=== PATIENT | male | born 1960 | race Caucasian/White ===

== ENCOUNTER 2022-03-04 10:14 | Emergency (ER) | payer SELFPAY ==
[2022-03-04] VITALS (14 sets, daily range): BP systolic 116–130; BP diastolic 74–93; PULSE 102–126; RESP 17–31; O2SAT 92–94; BMI 32.1
--- NOTE | 2022-03-04 10:15 | XR_ITS ---
WS: [id number] Exam: XR chest 1V portable [id number] Date/Time of Exam: 03/04/2022 10:17 AM Reason For Exam: cough, congestion No priors. The lungs are fully expanded and clear. Heart size top limits normal. No pleural effusions. Plate and screw fixation of 3 old upper left rib fractures. Mediastinal contour appears normal. XR/XR chest 1V portable [id number] IMPRESSION: 1. No acute cardiopulmonary finding.
[2022-03-04] MEDS: ipratropium-albuterol 3 mL Neb INHALATION (11:12)
--- NOTE | 2022-03-04 11:26 | PC.NURSE ---
Patient IV attempted by 2 RN's. notified that we were unable to get IV access, we made attempts in the arm. Patient requested leg IV, notified Dr. Jordan.
--- NOTE | 2022-03-04 11:37 | ECG_ITS ---
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 Measurements Intervals [place] Rate: 136 P: CT: QRS: 80 QRSD: 91 T: -19 QT: 281 QTc: 423 Interpretive Statements ATRIAL FIBRILLATION WITH RAPID VENTRICULAR RESPONSE INCOMPLETE RIGHT BUNDLE BRANCH BLOCK [90+ ms QRS DURATION, TERMINAL R IN V1/V2, 40+ ms S IN I/aVL/V4/V5/V6] SEPTAL MYOCARDIAL INFARCTION , OF INDETERMINATE AGE [40+ ms Q WAVE IN V1/V2] Compared to ECG 12/19/2014 01:16:27 Incomplete right bundle-branch block now present Myocardial infarct finding now present Sinus tachycardia no longer present Intraventricular conduction delay no longer present Electronically Signed On 03-04-2022 15:21:16 CDT by Mariusz Martínez M.D. [id number]
--- NOTE | 2022-03-04 12:07 | ED_ITS ---
HPI - SOB/Dyspnea General: Chief Complaint: Shortness of Breath/Dyspnea Stated Complaint: cough/congestion Time Seen by Provider: 03/04/22 10:44 Source: patient Mode of arrival: ambulatory Limitations: no limitations History of Present Illness: HPI Narrative: 61-year-old male presents emergency room complaining of shortness of breath he states is getting worse for the last 2 months he states he has a history of COPD he has been taking breathing treatments 3-4 times a day with moderate improvement. He is also states he has had a productive cough. He recently was released from incarceration there he had been given steroids which she is did seem to help. He has some generalized just chest congestion but no chest pain. No radiation discomfort of the neck or arms. Patient states he has a history of atrial fibrillation he is on diltiazem metoprolol has been taking his medicines regularly is not on any anticoagulation. MD elicited complaint: shortness of breath and cough Pertinent past history: COPD Onset (ago): week(s) Context: recent illness Timing: constant Severity: moderate Exacerbating factors: nothing Relieving factors: nothing Known history of: COPD Associated symptoms: Reports cough and palpitations; Deny abdominal pain, chest congestion, chest pain, diaphoresis, dizziness, extremity pain, fever(s), hemoptysis, myalgias, nausea, orthopnea, paresthesias, polydipsia, polyuria, rash, sense of impending doom, syncope or vomiting Treatment prior to arrival: none Review of Systems Const: Denies: fever(s), chills or diaphoresis ENMT: Denies: throat pain, ear or mastoid pain, nasal discharge or nasal congestion Card: Reports: palpitations and irregular heart rhythm; Denies: chest pain, syncope or orthopnea Resp: Denies: hemoptysis or chest congestion GI: Denies: abdominal pain, nausea, vomiting, hematemesis, coffee ground emesis or dysphagia : Denies: flank pain, difficulty urinating, dysuria, urinary frequency or urinary urgency Musc: Denies: neck pain, back pain or extremity pain Skin/Breast: Denies: rash or pruritus Neuro: Denies: headache(s) or dizziness Psych: Reports: anxiety Endo: Denies: polyuria or polydipsia PFS ED PFSH: Medical History Atrial fibrillation COPD (chronic obstructive pulmonary disease) Hyperlipidemia Physical Exam Const: GENERAL APPEARANCE: cooperative and comfortable ORIENTATION/CONSCIOUSNESS: Yes awake, Yes oriented to person, Yes oriented to place and Yes oriented to time HENMT: COMMON NORMALS: normocephalic HEAD & SCALP: normocephalic Lymph: LYMPHATIC: no lymphadenopathy noted and no lymphedema noted Resp: AUSCULTATION: rales and rhonchi Cardio: RATE: tachycardic RHYTHM: abnormal rhythm irregularly irregular GI: COMMON NORMALS: Soft to palpation and No hepatosplenomegaly present AUSCULTATION: Yes normoactive bowel sounds PALPATION: Yes Soft to palpation, No Tenderness to palpation present (GI), No Guarding due to palpation present (GI) and Yes No hepatosplenomegaly present Extremity: COMMON NORMALS: normal to inspection, capillary refill normal, no clubbing, cyanosis or edema, no calf tenderness and no pedal edema Neuro: SENSORIUM/ORIENTATION: Yes oriented to person, Yes oriented to place and Yes oriented to time Skin: COMMON NORMALS: no rashes or lesions noted GENERAL SKIN EXAM: no rashes or lesions noted Course Vital Signs: Vital signs: Vital Signs Pulse Rate 102 H 03/04/22 15:30 Respiratory Rate 30 H 03/04/22 15:30 Blood Pressure 127/86 03/04/22 15:30 Pulse Oximetry 92 03/04/22 15:30 MDM - SOB/Dyspnea Medical Decision Making Patient has significant exacerbation COPD and likely should be placed on at minimum observation. He is declining any wants to leave AMA could not be convinced otherwise discharged home with exacerbation of COPD encouraged to return if he has any further problems or wishes to reconsider evaluation and treatments. Lab Data Labs/Radiology: Radiology Impressions Chest X-Ray 03/04/22 10:15 IMPRESSION: 1. No acute cardiopulmonary finding. Discharge Plan Discharge Patient Disposition: Left Against Medical Advice Clinical Impression: Acute exacerbation of chronic obstructive airways disease Condition: Stable Prescriptions: No Action furosemide [Lasix] 40 mg Tablet 40 mg PO QAM 0RF atorvastatin 40 mg Tablet 40 mg PO BEDTIME 0RF diltiazem HCl 180 mg Capsule,Extended Release 24 Hr 180 mg PO QAM 0RF cetirizine [Zyrtec] 10 mg Tablet 10 mg PO QAM 0RF aspirin 325 mg Tablet 325 mg PO QAM 0RF metoprolol tartrate 50 mg Tablet 50 mg PO BID 0RF DuoNeb 0.5 mg-3 mg(2.5 mg base)/3 mL Solution For Nebulization 3 ml INHALATION QID 0RF albuterol sulfate 90 mcg/actuation Hfa Aerosol Inhaler 2 puff INHALATION QID PRN (Reason: Shortness Of Breath) 0RF Alvesco 80 mcg/actuation Hfa Aerosol Inhaler 2 puff INHALATION BID 0RF Zithromax Z-Naeem 250 mg tablet See Rx Instructions .ROUTE .COMPLEX Qty: 6 0RF Rx Instructions: For 250 mg dose pack: take 500 mg today (day 1), then 250 mg for 4 days (days 2-5) Coding Level of Care Code ED Customs Opener Verifier Packer for Chg Fwd Exam Comprehensive
--- NOTE | 2022-03-04 12:39 | PC.NURSE ---
Patient IV with ultrasound unsuccessful, Dr. Jordan notified.
--- NOTE | 2022-03-04 13:37 | ECG_ITS ---
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 Measurements Intervals [place] Rate: 114 P: [place]: QRS: 66 QRSD: 105 T: -15 QT: 326 QTc: 450 Interpretive Statements ATRIAL FIBRILLATION WITH RAPID VENTRICULAR RESPONSE INCOMPLETE RIGHT BUNDLE BRANCH BLOCK [90+ ms QRS DURATION, TERMINAL R IN V1/V2, 40+ ms S IN I/aVL/V4/V5/V6] SEPTAL MYOCARDIAL INFARCTION , PROBABLY OLD [40+ ms Q WAVE IN V1/V2] Compared to ECG 03/04/2022 12:01:13 No significant changes Electronically Signed On 03-04-2022 15:25:35 CDT by Mariusz Martínez M.D. [id number]
--- NOTE | 2022-03-04 13:41 | PC.NURSE ---
EKG done and shown to ER doctor
[2022-03-04] MEDS: dilTIAZem 30 mg Tablet PO (14:00)
--- NOTE | 2022-03-04 14:08 | PC.NURSE ---
Discussed with Dr. Jordan, VAT SKIMMER coming down to er to attempt to start a line.
--- NOTE | 2022-03-04 14:56 | PC.NURSE ---
Patient refusing anymore IV attempts.
--- NOTE | 2022-03-04 15:20 | PC.NURSE ---
Per lab staff, patient is now refusing lab draw.
== END 2022-03-04 15:45 | disposition left against medical advice (07) ==
PROVIDERS: Emergency Provider Family Medicine
DX: J44.1 Chronic obstructive pulmonary disease with (acute) exacerbation (principal); Z53.29 Procedure and treatment not carried out because of patient's decision for other reasons; I48.91 Unspecified atrial fibrillation; Z79.82 Long term (current) use of aspirin
CPT/HCPCS: 71045; 93005; 94640; 99284

== ENCOUNTER 2022-03-06 11:48 | Emergency (ER) | payer SELFPAY ==
[2022-03-06 12:04] VITALS: BP 105/77; PULSE 110; RESP 18; TEMP 36.4; O2SAT 94; BMI 32.1
--- NOTE | 2022-03-06 12:34 | ECG_ITS ---
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 Measurements Intervals [place] Rate: 92 P: MS: QRS: 75 QRSD: 102 T: -15 QT: 335 QTc: 415 Interpretive Statements ATRIAL FIBRILLATION INCOMPLETE RIGHT BUNDLE BRANCH BLOCK [90+ ms QRS DURATION, TERMINAL R IN V1/V2, 40+ ms S IN I/aVL/V4/V5/V6] SEPTAL MYOCARDIAL INFARCTION , OF INDETERMINATE AGE [40+ ms Q WAVE IN V1/V2] Compared to ECG 03/04/2022 13:27:26 No significant changes Electronically Signed On 03-06-2022 19:03:39 CDT by Tino Lowery M.D. [id number]
--- NOTE | 2022-03-06 12:34 | XRR_ITS ---
PROCEDURE INFORMATION: Exam: XR Chest Exam date and time: 03/06/2022 12:55 PM Age: 61 years old Clinical indication: Shortness of breath; TECHNIQUE: Imaging protocol: XR of the chest. Views: 1 view. COMPARISON: CR XR chest 1V portable [id number] 03/04/2022 10:22 AM FINDINGS: Lungs: There is scarring and/or atelectasis at the left lung base. Pleural spaces: Unremarkable. No pleural effusion. No pneumothorax. Heart/Mediastinum: Unremarkable. No cardiomegaly. Bones/joints: Postoperative changes left upper ribs, similar to the prior study. XR/XR chest 1V portable [id number] IMPRESSION: No acute findings.Non acute findings as described above.
[2022-03-06 12:54] LABS: Basophils # 0.1 10^3/uL (0.0-0.1); Basophils % 0.5 %; Eosinophils # 0.1 10^3/uL (0.0-0.8); Eosinophils % 1.3 %; Hematocrit 45.8 % (42.0-52.0); Hemoglobin 15.5 g/dL (11.7-16.6); Lymphocytes # 0.9 10^3/uL (0.8-4.8); Lymphocytes % 9.1 %; Mean Corpuscular HGB Conc 33.8 g/dL (30.0-36.0); Mean Corpuscular Hemoglobin 29.8 pg (28.0-34.0); Mean Corpuscular Volume 88.1 fl (80-94); Mean Platelet Volume 9.8 fL (7.4-10.4); Neutrophils # 7.48 10^3/uL (1.8-7.7); Neutrophils % 78.8 %; Nucleated Red Blood Cells % 0 %; Platelet Count 355 10^3/cmm (130-400); Red Cell Distribution Width 12.8 % (12.1-15.1); White Blood Count 9.5 10^3/uL (4.0-10.0)
--- NOTE | 2022-03-06 13:00 | PC.PHAR ---
pt states he takes care of his own medications-pt states he takes the medications entered-ext med history doesnt pull up any medications-pt was here on 03/04/22 MR lara uribe entered meds at that time-pt states he just got out of skilled nursing and takes the medications entered-pt states he use to be on blood thinners but hasnt been taking for a while-pt states he was on a titrating dose of prednisone but states he finished it 2 weeks ago-
[2022-03-06] MEDS: sodium chloride 0.9% 500 ML 999 ML IV (13:12)
[2022-03-06 13:19] LABS: Alanine Aminotransferase 25 U/L (0-41); Albumin Level 3.8 g/dL (3.5-5.2); Alkaline Phosphatase 77 IU/L (40-130); Anion Gap 16.6 (5-19); Aspartate Amino Transferase 26 U/L (0-40); Blood Urea Nitrogen 16 mg/dL (8-23); Calcium 9.8 mg/dL (8.5-10.5); Carbon Dioxide 28 mmol/L (22-29); Chloride 99 mmol/L (98-107); Creatinine Clr Calc Pharmacy 92.9458; Globulin 4.2 g/dL (1.3-4.6); Glomerular Filtration Rate 75.5 mL/min (90-130); Glucose 103 mg/dL (65-115); NT Pro B Type Natriuretic Pept 748 pg/mL (0-125); Osmolality Calculated 291 mOsm/kg (285-295); Potassium 3.6 mmol/L (3.5-5.1); Sodium 140 mmol/L (136-145); Total Bilirubin 0.7 mg/dL (0.15-1.2)
--- NOTE | 2022-03-06 13:33 | ED_ITS ---
HPI - SOB/Dyspnea General: Chief Complaint: Shortness of Breath/Dyspnea Stated Complaint: SOB x 2 weeks; progressively worse Time Seen by Provider: 03/06/22 12:14 History of Present Illness: HPI Narrative: Patient comes in with shortness of breath and productive cough for the past 2 weeks. Denies fever, vomiting, diarrhea. Also endorses palpitations and is concerned that he may be in A. fib. Associated symptoms: Reports palpitations; Deny abdominal pain, chest pain, fever(s), nausea, polyuria or vomiting Review of Systems Const: Reports: body aches; Denies: fever(s) Eyes: Denies: change in vision or blurry vision ENMT: Denies: throat pain or odynophagia Card: Reports: palpitations; Denies: chest pain Resp: Reports: dyspnea and productive cough GI: Denies: abdominal pain, nausea or vomiting : Denies: flank pain or dysuria Musc: Denies: neck pain or back pain Skin/Breast: Denies: rash or pruritus Neuro: Denies: headache(s) or numbness in extremities Psych: Denies: anxiety or change in appetite Endo: Denies: polyuria or excessive sweating PFSH ED PFSH: Medical History Atrial fibrillation COPD (chronic obstructive pulmonary disease) Hyperlipidemia Physical Exam Const: COMMON NORMALS: no acute distress, patient oriented x3, healthy eliana earing and alert HENMT: COMMON NORMALS: normocephalic and atraumatic HEAD & SCALP: normocephalic and atraumatic Eye: COMMON NORMALS: Equal, round and reactive pupils present and EOMs intact bilaterally PUPIL: Yes Equal, round and reactive pupils present Neck/C-Spine: COMMON NORMALS: full ROM and supple Resp: OTHER: Mild accessory muscle use, tachypnea, Cardio: COMMON NORMALS: regular rhythm RHYTHM: regular rhythm OTHER: Tachycardia with an irregularly irregular rhythm GI: COMMON NORMALS: Normal to inspection, nondistended, normoactive bowel sounds present, Soft to palpation and non-tender PALPATION: Yes Soft to palpation Back/Pelvis: COMMON NORMALS: thoracic and lumbar spine normal to inspection and no thoracic nor lumbar tenderness Extremity: COMMON NORMALS: normal to inspection and full ROM Neuro: COMMON NORMALS: patient oriented x3 SENSORIUM/ORIENTATION: Yes alert Psych: COMMON NORMALS: mental status grossly normal and cooperative Skin: COMMON NORMALS: no rashes or lesions noted and no wounds GENERAL SKIN EXAM: no rashes or lesions noted Course Vital Signs: Vital signs: Vital Signs Temperature 97.5 F L 03/06/22 12:04 Pulse Rate 103 H 03/06/22 15:11 Respiratory Rate 29 H 03/06/22 15:11 Blood Pressure 103/69 03/06/22 15:11 Pulse Oximetry 91 03/06/22 15:11 MDM - SOB/Dyspnea Medical Decision Making Patient comes in with shortness of breath and productive cough for the past 2 weeks. Denies fever, vomiting, diarrhea. Also endorses palpitations and is concerned that he may be in A. fib. Will check labs, x-ray, give IV fluids, and reassess. On reassessment I talked to the patient about the test results. We will continue steroids, start antibiotics, and discharged with precautions to return for worsening or changing symptoms. Lab Data : 03/06/22 12:45 03/06/22 12:45 Labs/Radiology: Radiology Impressions Chest X-Ray 03/06/22 12:34 IMPRESSION: No acute findings.Non acute findings as described above. Laboratory Results WBC 9.5 10^3/uL (4.0-10.0) 03/06/22 12:45 RBC 5.20 10^6/uL (4.1-5.3) 03/06/22 12:45 Hgb 15.5 g/dL (11.7-16.6) 03/06/22 12:45 Hct 45.8 % (42.0-52.0) 03/06/22 12:45 MCV 88.1 fl (80-94) 03/06/22 12:45 MCH 29.8 pg (28.0-34.0) 03/06/22 12:45 MCHC 33.8 g/dL (30.0-36.0) 03/06/22 12:45 RDW 12.8 % (12.1-15.1) 03/06/22 12:45 Plt Count 355 10^3/cmm (130-400) 03/06/22 12:45 MPV 9.8 fL (7.4-10.4) 03/06/22 12:45 Neut % (Auto) 78.8 % 03/06/22 12:45 Lymph % (Auto) 9.1 % 03/06/22 12:45 [place] % (Auto) 10.0 % 03/06/22 12:45 Eos % (Auto) 1.3 % 03/06/22 12:45 Baso % (Auto) 0.5 % 03/06/22 12:45 Neut # (Auto) 7.48 10^3/uL (1.8-7.7) 03/06/22 12:45 Lymph # (Auto) 0.9 10^3/uL (0.8-4.8) 03/06/22 12:45 [place] # (Auto) 1.0 10^3/uL (0.2-0.9) H 03/06/22 12:45 Eos # (Auto) 0.1 10^3/uL (0.0-0.8) 03/06/22 12:45 Baso # (Auto) 0.1 10^3/uL (0.0-0.1) 03/06/22 12:45 Nucleated RBC % (auto) 0 % 03/06/22 12:45 Nucleated RBCs # 0.0 /100WBC 03/06/22 12:45 Sodium 140 mmol/L (136-145) 03/06/22 12:45 Potassium 3.6 mmol/L (3.5-5.1) 03/06/22 12:45 Chloride 99 mmol/L (98-107) 03/06/22 12:45 Carbon Dioxide 28 mmol/L (22-29) 03/06/22 12:45 Anion Gap 16.6 (5-19) 03/06/22 12:45 BUN 16 mg/dL (8-23) 03/06/22 12:45 Creatinine 1.0 mg/dL (0.7-1.2) 03/06/22 12:45 GFR Calculation 75.5 mL/min (90-130) L 03/06/22 12:45 Glucose 103 mg/dL (65-115) 03/06/22 12:45 Calculated Osmolality 291 mOsm/kg (285-295) 03/06/22 12:45 Calcium 9.8 mg/dL (8.5-10.5) 03/06/22 12:45 Total Bilirubin 0.7 mg/dL (0.15-1.2) 03/06/22 12:45 AST 26 U/L (0-40) 03/06/22 12:45 ALT 25 U/L (0-41) 03/06/22 12:45 Alkaline Phosphatase 77 IU/L (40-130) 03/06/22 12:45 NT-Pro-B Natriuret Pep 748 pg/mL (0-125) H 03/06/22 12:45 Total Protein 8.0 g/dL (6.6-8.7) 03/06/22 12:45 Albumin 3.8 g/dL (3.5-5.2) 03/06/22 12:45 Globulin 4.2 g/dL (1.3-4.6) 03/06/22 12:45 Discharge Plan Discharge Patient Disposition: Home Clinical Impression: COPD (chronic obstructive pulmonary disease) Condition: Stable Prescriptions: New Zithromax Z-Naeem 250 mg tablet See Rx Instructions .ROUTE .COMPLEX Qty: 6 0RF Rx Instructions: For 250 mg dose pack: take 500 mg today (day 1), then 250 mg for 4 days (days 2-5) prednisone 20 mg tablet 60 mg PO DAILY 4 Days Qty: 12 0RF No Action furosemide [Lasix] 40 mg Tablet 40 mg PO QAM 0RF atorvastatin 40 mg Tablet 40 mg PO BEDTIME 0RF diltiazem HCl 180 mg Capsule,Extended Release 24 Hr 180 mg PO QAM 0RF cetirizine [Zyrtec] 10 mg Tablet 10 mg PO QAM 0RF aspirin 325 mg Tablet 325 mg PO QAM 0RF metoprolol tartrate 50 mg Tablet 50 mg PO BID 0RF DuoNeb 0.5 mg-3 mg(2.5 mg base)/3 mL Solution For Nebulization 3 ml INHALATION QID 0RF albuterol sulfate 90 mcg/actuation Hfa Aerosol Inhaler 2 puff INHALATION QID PRN (Reason: Shortness Of Breath) 0RF Alvesco 80 mcg/actuation Hfa Aerosol Inhaler 2 puff INHALATION BID 0RF Discharge Orders: Discharge ED (Routine); Ordered 03/06/22 Ordered By: Brian Perez Coding Level of Care Code ED Cabinet Finisher for Chg Fwd Exam Comprehensive
[2022-03-06 13:37] VITALS: PULSE 103; RESP 22; O2SAT 94
[2022-03-06] MEDS: levalbuterol 1.25 mg/3 mL Neb INHALATION (13:37)
[2022-03-06 13:47] VITALS: PULSE 105; RESP 22; O2SAT 94
[2022-03-06] MEDS: dilTIAZem 5 mg/mL SDV 5 mL IVP (15:04)
[2022-03-06 15:11] VITALS: BP 103/69; PULSE 103; RESP 29; O2SAT 91
== END 2022-03-06 16:36 | disposition home or self-care (01) ==
PROVIDERS: Emergency Provider Emergency Medicine
DX: J44.9 Chronic obstructive pulmonary disease, unspecified (principal); I48.91 Unspecified atrial fibrillation; Z79.82 Long term (current) use of aspirin
CPT/HCPCS: 71045; 80053; 83880; 85025; 93005; 94640; 96361; 96374; 96375; 99285; J2930; J3490; J7040; J7614

== ENCOUNTER 2022-06-08 09:25 | Outpatient (CLI) | payer OTHER, SELFPAY ==
--- NOTE | 2022-06-08 13:24 | PFTS_ITS ---
Date of Study:06/08/22 Date of Dictation: MECHANICS: Forced vital capacity (FVC) is reduced. Forced expiratory volume in one second (FEV1) is reduced. FEV1/FVC is reduced. FLOW VOLUME LOOP: Reduced flow at all lung volumes with significant scooping. LUNG VOLUMES: Not measured DIFFUSING CAPACITY FOR CARBON MONOXIDE: Moderately reduced. INTERPRETATION: The postbronchodilator spirometry is consistent with severe airflow obstruction. There is a significant postbronchodilator response. A component of restrictive lung disease cannot be ruled out in the absence of lung volume measurement. Lung volumes are not measured. Gas exchange (DLCO) is moderately reduced. MTDD
== END 2022-06-08 09:26 | disposition home or self-care (01) ==
PROVIDERS: Visit Provider Family Medicine
DX: J44.9 Chronic obstructive pulmonary disease, unspecified (principal)
CPT/HCPCS: 94060; 94729; J7611

== ENCOUNTER 2022-10-02 12:30 | Observation (INO) | payer MEDICAID, SELFPAY ==
[2022-10-02] VITALS (11 sets, daily range): BP systolic 92–124; BP diastolic 48–91; PULSE 85–130; RESP 16–26; TEMP 36–36.6; O2SAT 90–95; BMI 32.1
--- NOTE | 2022-10-02 12:39 | XRR_ITS ---
PROCEDURE INFORMATION: Exam: XR Chest Exam date and time: 10/02/2022 12:56 PM Age: 61 years old Clinical indication: Shortness of breath; Prior surgery; Additional info: SOB TECHNIQUE: Imaging protocol: Radiologic exam of the chest. Views: 1 view. COMPARISON: CR XR chest 1V portable [id number] 03/06/2022 12:55 PM FINDINGS: Lungs: Unremarkable. No consolidation. Pleural spaces: Unremarkable. No pleural effusion. No pneumothorax. Heart/Mediastinum: Unremarkable. No cardiomegaly. Bones/joints: Metallic orthopedic hardware is seen in the left 3rd 4th and 5th rib consistent with ORIF of old fractures. These findings were present on prior examination and appears similar. No additional bony abnormalities are seen. XR/XR chest 1V portable [id number] IMPRESSION: 1. Multiple metallic plate and screws are seen in the left ribs stable since prior . 2. Otherwise negative chest examination
--- NOTE | 2022-10-02 12:40 | ECG_ITS ---
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 Measurements Intervals [place] Rate: 132 P: 0 MT: 0 QRS: 83 QRSD: 91 T: 48 QT: 268 QTc: 398 Interpretive Statements ATRIAL FIBRILLATION WITH RAPID VENTRICULAR RESPONSE INCOMPLETE RIGHT BUNDLE BRANCH BLOCK [90+ ms QRS DURATION, TERMINAL R IN V1/V2, 40+ ms S IN I/aVL/V4/V5/V6] ANTEROSEPTAL MYOCARDIAL INFARCTION , OF INDETERMINATE AGE [40+ ms Q WAVE IN V1-V4] Compared to ECG 03/06/2022 12:41:24 No significant changes Electronically Signed On 10-03-2022 19:51:46 PLASTICS FABRICATOR by Tino Lowery M.D. [id number]
--- NOTE | 2022-10-02 12:58 | ED_ITS ---
HPI - SOB/Dyspnea General: Chief Complaint: Shortness of Breath/Dyspnea Stated Complaint: SOB Time Seen by Provider: 10/02/22 12:48 Source: patient Mode of arrival: ambulatory Limitations: no limitations History of Present Illness: HPI Narrative: 61-year-old male who has a history of COPD along with A. fib he is noncompliant on his medicines states he has not taken them in over 2 months. States that over the last week he has been having increasing shortness of breath along with a nonproductive cough he is in A. fib with RVR here in respiratory distress with audible wheezing he is able speak in 3-4 word sentences denies any vomiting or diarrhea denies any chest pain. Associated symptoms: Deny abdominal pain, chest pain, fever(s), nausea or vomiting Review of Systems Const: Denies: fever(s), chills, body aches or change in appetite Eyes: Denies: blurry vision or eye discomfort ENMT: Denies: throat pain or dental pain Card: Denies: chest pain Resp: Reports: dyspnea and non-productive cough GI: Denies: abdominal pain, nausea, vomiting or diarrhea : Denies: dysuria Musc: Denies: neck pain or back pain Skin/Breast: Denies: rash Neuro: Denies: headache(s) Psych: Denies: depression Chay/Lymph: Denies: easy bruising All/Imm: Denies: urticaria PFSH ED 2 PFSH: Medical History Atrial fibrillation COPD (chronic obstructive pulmonary disease) Hyperlipidemia Physical Exam Const: COMMON NORMALS: patient oriented x3 GENERAL APPEARANCE: in distress and ill appearing HENMT: COMMON NORMALS: normocephalic and atraumatic HEAD & SCALP: normo cephalic and atraumatic Eye: COMMON NORMALS: Equal, round and reactive pupils present and EOMs intact bilaterally PUPIL: Yes Equal, round and reactive pupils present Neck/C-Spine: COMMON NORMALS: full ROM and supple Chest: COMMONS NORMALS: normal inspection of the chest and normal palpation of entire chest wall Resp: EFFORT & INSPECTION: Yes tachypneic and Yes labored AUSCULTATION: rales and wheezes Cardio: COMMON NORMALS: No murmurs present (Cardio) RATE: tachycardic RHYTHM: abnormal rhythm irregularly irregular GI: COMMON NORMALS: Normal to inspection, nondistended, normoactive bowel sounds present, Soft to palpation, non-tender and no masses PALPATION: Yes Soft to palpation Extremity: COMMON NORMALS: normal to inspection and full ROM Neuro: COMMON NORMALS: patient oriented x3, moves all extremities and no focal motor deficits Psych: COMMON NORMALS: mental status grossly normal, Normal thought process present and cooperative THOUGHT PROCESS: Normal thought process present Skin: COMMON NORMALS: no rashes or lesions noted and no wounds GENERAL SKIN EXAM: no rashes or lesions noted Course Vital Signs: Vital signs: Vital Signs Temperature 96.8 F L 10/02/22 12:35 Pulse Rate 111 H 10/02/22 15:03 Respiratory Rate 18 10/02/22 15:03 Blood Pressure 104/71 10/02/22 15:03 Pulse Oximetry 92 10/02/22 13:09 Oxygen Delivery Me thod 10/02/22 13:09 MDM - SOB/Dyspnea Medical Decision Making Patient presents here with cough wheezing does have a history of COPD along with A. fib he was in A. fib with RVR here his heart rate has improved here patient is given a breathing treatment he still requiring oxygen here. I spoke to the hospitalist will admit at this time. Lab Data 10/02/22 14:11 10/02/22 14:11 Labs/Radiology: Radiology Impressions Chest X-Ray 10/02/22 12:39 IMPRESSION: 1. Multiple metallic plate and screws are seen in the left ribs stable since prior . 2. Otherwise negative chest examination Laboratory Results WBC 13.4 10^3/uL (4.0-10.0) H 10/02/22 14:11 RBC 5.80 10^6/uL (4.1-5.3) H 10/02/22 14:11 Hgb 16.5 g/dL (11.7-16.6) 10/02/22 14:11 Hct 50.7 % (42.0-52.0) 10/02/22 14:11 MCV 87.4 fl (80-94) 10/02/22 14:11 MCH 28.4 pg (28.0-34.0) 10/02/22 14:11 MCHC 32.5 g/dL (30.0-36.0) 10/02/22 14:11 RDW 13.2 % (12.1-15.1) 10/02/22 14:11 Plt Count 637 10^3/cmm (130-400) H 10/02/22 14:11 MPV 8.9 fL (7.4-10.4) 10/02/22 14:11 Neut % (Auto) 80.6 % 10/02/22 14:11 Lymph % (Auto) 12.4 % 10/02/22 14:11 Mckenzie % (Auto) 5.7 % 10/02/22 14:11 Eos % (Auto) 0.2 % 10/02/22 14:11 Baso % (Auto) 0.4 % 10/02/22 14:11 Neut # (Auto) 10.80 10^3/uL (1.8-7.7) H 10/02/22 14:11 Lymph # (Auto) 1.7 10^3/uL (0.8-4.8) 10/02/22 14:11 Mckenzie # (Auto) 0.8 10^3/uL (0.2-0.9) 10/02/22 14:11 Eos # (Auto) 0.0 10^3/uL (0.0-0.8) 10/02/22 14:11 Baso # (Auto) 0.1 10^3/uL (0.0-0.1) 10/02/22 14:11 Nucleated RBC % (auto) 0 % 10/02/22 14:11 Nucleated RBCs # 0.0 /100WBC 10/02/22 14:11 Specimen Type Arterial 10/02/22 13:09 Sample Site Radial, left 10/02/22 13:09 ABG pH 7.45 (7.35-7.45) 10/02/22 13:09 ABG pCO2 32.1 mmHg (35-45) L 10/02/22 13:09 ABG pO2 68.7 mmHg (80.0-100.0) L 10/02/22 13:09 ABG HCO3 22.2 mmol/L (22-26) 10/02/22 13:09 ABG Base Excess -0.8 mmol/L (-2.0-2.0) 10/02/22 13:09 Jacob Test Pos 10/02/22 13:09 Hematocrit 50.0 % (42-52) 10/02/22 13:09 O2 Delivery Device Room air 10/02/22 13:09 FiO2 21.0 % 10/02/22 13:09 Guest Service Supervisor ID Cak 10/02/22 13:09 Sodium 132 mmol/L (136-145) L 10/02/22 14:11 Potassium 4.8 mmol/L (3.5-5.1) 10/02/22 14:11 Chloride 96 mmol/L (98-107) L 10/02/22 14:11 Carbon Dioxide 25 mmol/L (22-29) 10/02/22 14:11 Anion Gap 15.8 (5-19) 10/02/22 14:11 BUN 16 mg/dL (8-23) 10/02/22 14:11 Creatinine 0.9 mg/dL (0.7-1.2) 10/02/22 14:11 GFR Calculation 85.2 mL/min (90-130) L 10/02/22 14:11 Glucose 96 mg/dL (65-115) 10/02/22 14:11 Calculated Osmolality 275 mOsm/kg (285-295) L 10/02/22 14:11 Calcium 9.5 mg/dL (8.5-10.5) 10/02/22 14:11 Total Bilirubin 0.5 mg/dL (0.15-1.2) 10/02/22 14:11 AST 19 U/L (0-40) 10/02/22 14:11 ALT 18 U/L (0-41) 10/02/22 14:11 Alkaline Phosphatase 70 U/L (40-130) 10/02/22 14:11 NT-Pro-B Natriuret Pep 337 pg/mL (0-125) H 10/02/22 14:11 Total Protein 8.1 g/dL (6.6-8.7) 10/02/22 14:11 Albumin 3.4 g/dL (3.5-5.2) L 10/02/22 14:11 Globulin 4.7 g/dL (1.3-4.6) H 10/02/22 14:11 Influenza Type A Ag negative (Negative) 10/02/22 14:01 Influenza Type B Ag negative (Negative) 10/02/22 14:01 SARS-CoV-2 Ag (Rapid) negative (Negative) 10/02/22 14:01 Critical Care Time Critical Care Time: Critical Care Time: Yes Total Critical Care Time: 45 Attestation: The high probability of a clinically significant, sudden or life threatening deterioration of the patient's cv, resp system(s) required my full and direct attention, intervention and personal management. The critical care time is as shown. This time is in addition to time spent performing any reported procedures but includes the following: [x] Data and vital sign review and interpretation [x] Patient assessment, examination and intervention [x] Documentation [x] Medication orders and management Discharge Plan Discharge Patient Disposition: Admitted As Inpatient Clinical Impression: Acute exacerbation of chronic obstructive airways disease, Atrial fibrillation with RVR, Acute and chronic respiratory failure with hypoxia Condition: Stable Prescriptions: No Action furosemide [Lasix] 40 mg Tablet 40 mg PO QAM atorvastatin 40 mg Tablet 40 mg PO BEDTIME diltiazem HCl 180 mg Capsule,Extended Release 24 Hr 180 mg PO QAM cetirizine [Zyrtec] 10 mg Tablet 10 mg PO QAM aspirin 325 mg Tablet 325 mg PO QAM metoprolol tartrate 50 mg Tablet 50 mg PO BID DuoNeb 0.5 mg-3 mg(2.5 mg base)/3 mL Solution For Nebulization 3 ml INHALATION QID albuterol sulfate 90 mcg/actuation Hfa Aerosol Inhaler 2 puff INHALATION QID PRN (Reason: Shortness Of Breath) Alvesco 80 mcg/actuation Hfa Aerosol Inhaler 2 puff INHALATION BID Zithromax Z-Naeem 250 mg tablet See Rx Instructions .ROUTE .COMPLEX Qty: 6 0RF Rx Instructions: For 250 mg dose pack: take 500 mg today (day 1), then 250 mg for 4 days (days 2-5) Coding Level of Care Code ED Recreation Programmer for [facility] Fwd Exam Comprehensive
[2022-10-02] MEDS: albuterol 2.5 mg/3 mL Neb INHALATION (13:09)
[2022-10-02 13:20] LABS: ABG PCO2 32.1 mmHg (35-45); ABG PH Result 7.45 (7.35-7.45); Base Excess ABG -0.8 mmol/L (-2.0-2.0); Blood Gas Allen Test Pos; Blood Gas Operator Identificat CAK; Blood Gas Sample Site Radial, left; Blood Gas Sample Type Arterial; HCO3 ABG 22.2 mmol/L (22-26); Oxygen Device ROOM AIR; PO2 ABG 68.7 mmHg (80.0-100.0)
[2022-10-02 14:17] LABS: Basophils # 0.1 10^3/uL (0.0-0.1); Basophils % 0.4 %; Eosinophils % 0.2 %; Hematocrit 50.7 % (42.0-52.0); Hemoglobin 16.5 g/dL (11.7-16.6); Lymphocytes # 1.7 10^3/uL (0.8-4.8); Lymphocytes % 12.4 %; Mean Corpuscular HGB Conc 32.5 g/dL (30.0-36.0); Mean Corpuscular Hemoglobin 28.4 pg (28.0-34.0); Mean Corpuscular Volume 87.4 fl (80-94); Mean Platelet Volume 8.9 fL (7.4-10.4); Monocytes # 0.8 10^3/uL (0.2-0.9); Monocytes % 5.7 %; Neutrophils % 80.6 %; Nucleated Red Blood Cells % 0 %; Platelet Count 637 10^3/cmm (130-400); Red Cell Distribution Width 13.2 % (12.1-15.1); White Blood Count 13.4 10^3/uL (4.0-10.0)
[2022-10-02] MEDS: sodium chloride 0.9% 1,000 ML 999 ML IV (14:19)
[2022-10-02 14:27] LABS: Influenza A by IFA negative (Negative); Influenza B by IFA negative (Negative); SARS Covid-2 Antigen negative (Negative)
[2022-10-02 14:54] LABS: Alanine Aminotransferase 18 U/L (0-41); Albumin Level 3.4 g/dL (3.5-5.2); Alkaline Phosphatase 70 U/L (40-130); Blood Urea Nitrogen 16 mg/dL (8-23); Calcium 9.5 mg/dL (8.5-10.5); Carbon Dioxide 25 mmol/L (22-29); Chloride 96 mmol/L (98-107); Globulin 4.7 g/dL (1.3-4.6); Glomerular Filtration Rate 85.2 mL/min (90-130); Glucose 96 mg/dL (65-115); NT Pro B Type Natriuretic Pept 337 pg/mL (0-125); Osmolality Calculated 275 mOsm/kg (285-295); Sodium 132 mmol/L (136-145); Total Bilirubin 0.5 mg/dL (0.15-1.2); Total Protein 8.1 g/dL (6.6-8.7)
[2022-10-02 15:06] LABS: Anion Gap 15.8 (5-19); Aspartate Amino Transferase 19 U/L (0-40); Potassium 4.8 mmol/L (3.5-5.1)
--- NOTE | 2022-10-02 16:15 | P.HP_ITS ---
Providers/Chief Complaint Chief Complaint: SOB History of Present Illness Gareth Pickering is a 61 year old male with history of A. fib, COPD, not oxygen dependent, noncompliant, has not follow-up with PCP presented with worsening of shortness of breath. Patient is stating that he has been feeling sick for last 2 weeks, he has not noticed fever but his shortness of breath gotten worse to the point he could not breathe on room air he was hypoxic hence into the ER for further evaluation. He was diagnosed with A. fib RVR and COPD exacerbation. Audible wheezing present at the time of my evaluation. Patient is stating that he started bleeding when [facility] because they could not afford his Eliquis, he is still smoking around a pack a day. In the ER received steroids, breathing regimen, IV fluids along Cardizem 10 mg IV push Review of Systems Const: Reports: chills Eyes: Denies: change in vision ENMT: Denies: throat pain Card: Reports: palpitations, irregular heart rhythm and dyspnea on exertion; Denies: chest pain Resp: Reports: dyspnea GI: Denies: abdominal pain : Denies: urinary dribbling Musc: Denies: neck pain Skin/Breast: Denies: changing lesions Neuro: Denies: headache(s) Psych: Reports: anxiety Endo: Denies: polyuria Chay/Lymph: Denies: easy bruising All/Imm: Denies: urticaria Medications/Allergies Home Medications Medication Instructions Recorded Confirmed Last Taken Type aspirin 325 mg tablet 325 mg PO QAM 03/04/22 10/03/22 1 Month Ago History ~09/02/22 atorvastatin 40 mg tablet 40 mg PO BEDTIME 03/04/22 10/03/22 1 Month Ago History ~09/02/22 cetirizine 10 mg tablet (Zyrtec) 10 mg PO QAM 03/04/22 10/03/22 1 Month Ago History ~09/02/22 diltiazem HCl 180 mg capsule,24 180 mg PO QAM 03/04/22 10/03/22 1 Month Ago History hr,extended release ~09/02/22 furosemide 40 mg tablet (Lasix) 40 mg PO QAM 03/04/22 10/03/22 1 Month Ago History ~09/02/22 metoprolol tartrate 50 mg tablet 50 mg PO BID 03/04/22 10/03/22 1 Month Ago History ~09/02/22 see ALL pharmacy com albuterol sulfate 90 mcg/actuation 2 puff inhalation QID PRN 03/06/22 10/03/22 Unknown History aerosol inhaler Shortness Of Breath ciclesonide 80 mcg/actuation 2 puff inhalation BID 03/06/22 10/03/22 Unknown History aerosol inhaler (Alvesco) ipratropium 0.5 mg-albuterol 3 mg 3 ml inhalation QID 03/06/22 10/03/22 Unknown History (2.5 mg base)/3 mL nebulization soln Allergies Allergy/AdvReac Type Severity Reaction Status Date / Time No Known Allergies Allergy Verified 10/03/22 10:06 PFSH Acute PFSH: Medical History (Updated 10/03/22 @ 11:11 by Yasmine Renteria MD) Atrial fibrillation COPD (chronic obstructive pulmonary disease) Hyperlipidemia Rib deformity Surgical History (Updated 10/03/22 @ 11:11 by Yasmine Renteria MD) History of colon surgery Family History (Updated 10/03/22 @ 11:11 by Yasmine Renteria MD) Denies family history of Chronic kidney disease (CKD) Social History (Updated 10/03/22 @ 11:11 by Yasmine Renteria MD) Smoking and tobacco status: current every day smoker Alcohol intake: current Alcohol intake frequency: holidays/special occasions o nly Substance/Drug Use: former Vitals/I&O/Wt Last Vital Signs Temp 96.8 F L 10/02/22 12:35 Pulse 111 H 10/02/22 15:03 Resp 18 10/02/22 15:03 BP 104/71 10/02/22 15:03 Pulse Ox 92 10/02/22 13:09 O2 Del Method 10/02/22 13:09 Weight last 48 hrs Weight 104.326 kg Physical Exam Narrative: A. fib RVR Active wheezing Currently on 3 L nasal cannula Abdomen soft however distended Lower extremity venous stasis dermatitis No signs of heart failure Awake and alert Anxious appearing NIH 0 GCS 15 Agitated and anxious Appears more than stated age Unkept appearance Data 10/02/22 14:11 10/02/22 14:11 A&P Assessment and plan (1) Acute and chronic respiratory failure with hypoxia: (2) Atrial fibrillation with RVR: (3) Acute exacerbation of chronic obstructive airways disease: Plan Acute COPD exacerbation Acute hypoxia A. fib RVR Start therapeutic Lovenox, continue AV jadiel blocking agent Continue steroids for wheezing Azithromycin for anti-inflammatory effect Will need home O2 evaluation before discharge Will consult high risk case manager Patient does not have insurance Wean oxygen to room air if possible Full code Cardiac diet Requested sputum culture and drug screen Attestations Medical Necessity Statement*: Anticipating discharge within 48 hours Time Spent in Patient Care: 40 Coding Level of Care Code Acute Division Human Resources Manager for [facility] Fwd Diagnoses Acute and chronic respiratory failure with hypoxia J96.21 Atrial fibrillation with RVR I48.91 Acute exacerbation of chronic obstructive airways disease J44.1
[2022-10-02 16:35] LABS: D Dimer 0.75 ug/mIFEU (0-0.59)
[2022-10-02] MEDS: enoxaparin 100 mg/mL Syringe SUBCUT (17:42)
[2022-10-02] MEDS: metoprolol tartrate 50 mg Tablet PO (18:18)
[2022-10-02 18:54] LABS: Vitamin B12 830 pg/mL (232-1245)
[2022-10-02] MEDS: ipratropium-albuterol 3 mL Neb INHALATION (20:03)
[2022-10-02 20:57] LABS: Glucose Point of Care 203 mg/dL (70-110)
--- NOTE | 2022-10-02 23:51 | PC.NURSE ---
upon rounding on the patient he asked for another sandwich and some orange juice. This nurse encouraged the patient to drink some water and that his blood sugar was elevated possibly due to the stress of being in the hospital and being sick. The patient then precedes to yell at this nurse saying my sugar is not high and I am not a diabetic The patient refused to take this nurses advice and got orange juice and another sandwich as requested.
[2022-10-03] VITALS (13 sets, daily range): BP systolic 95–120; BP diastolic 55–72; PULSE 79–112; RESP 16–26; TEMP 36.4–36.6; O2SAT 88–97
--- NOTE | 2022-10-03 02:50 | PC.NURSE ---
The director of national sales came to this nurse to let me know the patient was refusing labs. I went into the room to see if I could find out the situation as to why he did not want his labs drawn this morning. The patient immediately became upset with my presence in the room by making it verbally clear. When I walked in he asked why in the fuck are you in here to draw labs at 0300 in the morning? This nurse began to educated the patient on the need for labs and his condition. He started yelling at me again and stated I am making all of this shit up I let the patient know I was here to help take care of him and let him know we would figure this out together. Lastly he yelled at me and said leave my room now and not to come back This nurse then left the room and let the charge nurse know about the situation.
[2022-10-03] MEDS: ipratropium-albuterol 3 mL Neb INHALATION ×3 (03:30→22:11)
[2022-10-03 04:00] LABS: Basophils % 0.1 %; Hematocrit 44.8 % (42.0-52.0); Hemoglobin 14.4 g/dL (11.7-16.6); Lymphocytes # 0.6 10^3/uL (0.8-4.8); Lymphocytes % 4.4 %; Mean Corpuscular HGB Conc 32.1 g/dL (30.0-36.0); Mean Corpuscular Hemoglobin 28.2 pg (28.0-34.0); Mean Corpuscular Volume 87.8 fl (80-94); Mean Platelet Volume 9.3 fL (7.4-10.4); Monocytes # 0.1 10^3/uL (0.2-0.9); Monocytes % 0.9 %; Neutrophils # 12.16 10^3/uL (1.8-7.7); Neutrophils % 94.1 %; Nucleated Red Blood Cells % 0 %; Platelet Count 637 10^3/cmm (130-400); Red Cell Distribution Width 13.2 % (12.1-15.1); White Blood Count 12.9 10^3/uL (4.0-10.0)
[2022-10-03] MEDS: dilTIAZem ER (24HR) 180 mg Capsule PO (04:53)
[2022-10-03] MEDS: enoxaparin 100 mg/mL Syringe SUBCUT ×2 (04:54→17:40)
--- NOTE | 2022-10-03 06:00 | USCV_ITS ---
Gareth Pickering Age: 62 Gender: M : 1960 Exam Date: 10/03/2022 10:58 Ordering Phys: Yasmine Renteria MD Technologist: JELENA Exam Location: [facility] [place] Indication: afib BP: 148 / 82 HR: 66 Rhythm: Sinus Technical Quality: Adequate MEASUREMENTS (Male / Female) Normal Values 2D ECHO LV Diastolic Diameter PLAX 4.9 cm 4.2 - 5.9 / 3.9 - 5.3 cm LV Systolic Diameter PLAX 3.6 cm IVS Diastolic Thickness 1.1 cm 0.6 - 1.0 / 0.6 - 0.9 cm IVS Systolic Thickness 1.2 cm LVPW Diastolic Thickness 1.0 cm 0.6 - 1.0 / 0.6 - 0.9 cm LVPW Systolic Thickness 1.3 cm LVOT Diameter 2.4 cm LV Ejection Fraction 2D Teich 51.0 % LV Ejection Fraction MOD 2C 68.4 % LV Ejection Fraction 2C AL 68.2 % LA Diameter 3.9 cm IVC Diameter 2.9 cm M-MODE Aortic Annulus Diameter 3.6 cm LA Ao Ratio MM 1.2 MV E Point Septal Separation 0.5 cm DOPPLER AV Peak Velocity 106.0 cm/s LVOT Peak Velocity 99.0 cm/s AV Area Cont Eq vti 4.1 cm squared AV Area Cont Eq pk 4.3 cm squared MV Area PHT 3.7 cm squared Mitral E to A Ratio 2.0 MV E' Velocity 41.0 cm/s Mitral E to MV E' Ratio 4.5 Mitral E to LV E' Lateral Ratio 4.1 Mitral E to LV E' Septal Ratio 5.0 TR Peak Velocity 259.5 cm/s TR Peak Gradient 26.9 mmHg TV Peak E Velocity 92.0 cm/s Right Atrial Pressure 9.0 mmHg Pulmonary Artery Systolic Pressu 35.9 mmHg PV Peak Velocity 68.0 cm/s FINDINGS Left Ventricle Normal left ventricular size and systolic function, EF 59 %. No regional wall motion abnormalities. Right Ventricle The right ventricle is normal in size and function. Right Atrium Moderately increased right atrial size. Left Atrium Mildly increased left atrial size. Mitral Valve Mild mitral valve regurgitation. Aortic Valve Structurally normal aortic valve without significant sclerosis or stenosis. There is no aortic regurgitation. Tricuspid Valve [id number] tricuspid valve regurgitation. Estimated pulmonary artery peak systolic pressure 36 mmHg. Pulmonic Valve No gross abnormalities noted Pericardium No pericardial effusion. Aorta Normal aortic annulus size. IVC Normal inferior vena cava. CONCLUSIONS Normal left ventricular size and systolic function, EF 59 %. No regional wall motion abnormalities. Mildly increased left atrial size. Moderately increased right atrial size. Mild mitral valve regurgitation. [id number]-[id number] tricuspid valve regurgitation. Estimated pulmonary artery peak systolic pressure 36 mmHg. Estimated pulmonary artery peak systolic pressure 36 mmHg There is no pericardial effusion. There are no intracardiac masses. No similar previous studies are available for comparison Dr Tino Lowery MD [facility] (Electronically Signed) Final Date: 03 October 2022 13:27 S
--- NOTE | 2022-10-03 06:27 | PC.NURSE ---
Patient refusing to be stuck for morning labs and phlebotamist reported patient getting very angry at her. Blood drawn from IV by KERMIT Hunter. Per lab, blood hemolyzed. Lab came to attempt to redraw. Lab staff stated I just got cussed out. after leaving patient's room. This RN went into patient's room to attempt to draw from IV again. This nurse attempt to educate patient that there are multiple things that can go wrong when drawing from an IV such as the IV going bad, blood hemolyzing, ect. Patient became very angry and stating, I don't give a fuck, you ain't sticking me. It ain't gonna happen. Nurse educated that he has the right to refuse being stuck, but that blood is needing to help diagnose and treat him better. Patient agreed to allow blood to be drawn from IV again, but is refusing to be stuck with a needle.
[2022-10-03 07:08] LABS: Blood Urea Nitrogen 23 mg/dL (8-23); C Reactive Protein 112.9 mg/L (0.0-4.9); Carbon Dioxide 23 mmol/L (22-29); Chloride 103 mmol/L (98-107); Glucose 155 mg/dL (65-115); Magnesium 1.9 mg/dL (1.7-2.3); Osmolality Calculated 291 mOsm/kg (285-295); Phosphorus 1.6 mg/dL (2.5-4.5); Sodium 137 mmol/L (136-145)
[2022-10-03 07:20] LABS: Anion Gap 15.8 (5-19); Potassium 4.8 mmol/L (3.5-5.1)
[2022-10-03] MEDS: metoprolol tartrate 50 mg Tablet PO (08:58)
[2022-10-03] MEDS: azithromycin 250 mg Tablet 500 MG PO (08:58)
[2022-10-03] MEDS: lidocaine 2% viscous 15 ML, aluminum-mag hydrox-simethicon 30 ML, sucralfate oral liq 1 GM PO (09:53)
--- NOTE | 2022-10-03 10:20 | PC.PHAR ---
pt states he stop taking all his meds about 1-2 months ago-pt states he still had some of his duo neb left but is almost out and had been using it qid for the last week and a half-pt states he still has the medications entered at home somewhere but stop taking them 1-2 months ago- states he got them from when he was in [facility]-
--- NOTE | 2022-10-03 11:13 | P.PN_ITS ---
Subjective Subjective: Patient is stating he is feeling well He was very upset and anxious catering manager in the room, he wanted to get Eliquis through the company he is not able to pay and stating in case he is not able today he will opt for aspirin Currently on 3 L nasal cannula Wheezing slightly improved Vitals/I&O/Wt Last Vital Signs Temp 97.5 F L 10/03/22 07:43 Pulse 106 H 10/03/22 08:26 Resp 18 10/03/22 08:26 BP 113/71 10/03/22 07:43 Pulse Ox 92 10/03/22 08:26 O2 Del Method 10/03/22 08:26 O2 Flow Rate 3 10/03/22 08:26 10/02/22 10/03/22 10/03/22 22:59 06:59 14:59 Intake Total 480 / 480 800 / 1280 240 / 240 Output Total 500 / 500 200 / 700 200 / 200 Balance -20 / -20 600 / 580 40 / 40 Weight last 48 hrs Weight 104.326 kg Physical Exam Narrative: Patient is slightly improved however still present No acute respiratory distress Venous stasis dermatitis No active signs of heart failure Anxious appearing S1, S2 variable Abdomen soft No audible stridor or wheezing today EOMI, PERRLA Data 10/03/22 03:04 10/03/22 06:20 A&P Assessment and plan (1) Acute exacerbation of chronic obstructive airways disease: (2) Atrial fibrillation with RVR: (3) Acute and chronic respiratory failure with hypoxia: (4) Hyperlipidemia: (5) Atrial fibrillation: (6) COPD (chronic obstructive pulmonary disease): Plan Acute COPD exacerbation Noncompliant A. fib without RVR Continue Lovenox Will request case management social worker to see if we can get his Eliquis approved Wheezing has improving continue IV steroids DuoNeb every 4 as needed Follow-up with drug screen A. fib without RVR continue AV jadiel blocking agent D-dimer not remarkably high Influenza negative Full code Cardiac diet Plan to discharge tomorrow if wheezing improved Attestations Medical Necessity Statement*: Discharge tomorrow Time Spent in Patient Care: 30 Coding Level of Care Code Acute Feller Hand for [facility] Fwd Diagnoses Acute exacerbation of chronic obstructive airways disease J44.1 Atrial fibrillation with RVR I48.91 Acute and chronic respiratory failure with hypoxia J96.21 Hyperlipidemia E78.5 Atrial fibrillation I48.91 COPD (chronic obstructive pulmonary disease) J44.9
--- NOTE | 2022-10-03 11:27 | PC.NURSE ---
patient keeps removing canula. 02 was 85% and i got it up to 89% before i left the room
[2022-10-03 12:49] LABS: Glucose Point of Care 186 mg/dL (70-110)
[2022-10-03 14:14] LABS: Amphetamines Screen Urine Negative (Negative); Barbiturates Screen Urine Negative (Negative); Benzodiazepines Screen Urine Negative (Negative); Cocaine Screen Urine Negative (Negative); Opiate Screen Urine Negative (Negative); PCP Screen Urine Negative (Negative); THC Screen Urine Negative (Negative)
--- NOTE | 2022-10-03 17:25 | PC.NURSE ---
Per Dr. Renteria hold evening dose of metoprolol d/t blood pressure.
--- NOTE | 2022-10-03 18:14 | PC.NURSE ---
Patient refusing cardiac telemetry.
[2022-10-04] VITALS (10 sets, daily range): BP systolic 115–133; BP diastolic 71–94; PULSE 83–130; RESP 15–26; TEMP 36–37; O2SAT 90–94
--- NOTE | 2022-10-04 00:03 | PC.NURSE ---
At 2300 the patient called out for nursing staff stating he was had an increase in difficulty breathing. This nurse attempted to raise the HOB for aid in better lung expansion and the patient became irate and yelling and shaking the bed rail. This nurse left the room to get the charge nurse. The situation was explained to the charge nurse. She entered the room and the patient began yelling at her as well. She was able to obtain his pulse ox and it was 88%. She increased his oxygen from 4L to 5L and encouraged deep slow breathes. This nurse contacted the hospitalist, she was in the middle of STEMI and several admissions. The hospitalist came to the floor and was approached about the changes. She gave verbal orders to start Bi-pap and change solu-medrol to Q8 hour from Q12 hour. New orders entered. Patient then educated of the new orders and what to expect with Bi-Pap.
[2022-10-04] MEDS: benzonatate 100 mg Capsule 200 MG PO ×4 (03:00→21:43)
[2022-10-04] MEDS: dilTIAZem ER (24HR) 180 mg Capsule PO (04:56)
[2022-10-04] MEDS: enoxaparin 100 mg/mL Syringe SUBCUT ×2 (04:56→17:26)
[2022-10-04] MEDS: lidocaine 2% viscous 15 ML, aluminum-mag hydrox-simethicon 30 ML, sucralfate oral liq 1 GM PO (05:27)
--- NOTE | 2022-10-04 07:27 | PC.NURSE ---
At approximately 0515 this nurse entered the patient room to give scheduled medications. The patient began to yell and use curse words at me stating that we do not care about him or his needs and that the physicians did not know how to do their jobs. Everything we were telling him was lies and he is not stupid. That we were stupid and needed to address his needs and wants over every one else. This nurse explained to him that there is one physician for the entire hospital over nights and it takes time to get orders at time. This all started because the patient had requested something for acid reflux at 0500 approximately, the TANK TRUCK MECHANIC told this nurse, this nurse notified the physician, and I was waiting to hear a call back. When I went to give his meds I had not heard back yet from the physician for an order. This was very thoroughly explained to patient and not accepting it as facts.
--- NOTE | 2022-10-04 07:53 | P.DS_ITS ---
Discharge Providers Date of Admission: 10/02/22 16:18 Date of Discharge: October 04, 2022 Attending Provider at Admission: Yasmine Renteria MD Attending Provider at Discharge: Yasmine Renteria MD Diagnoses at Discharge Discharge Diagnosis (1) Acute exacerbation of chronic obstructive airways disease: Status: Acute (2) Atrial fibrillation with RVR: Status: Acute (3) Acute and chronic respiratory failure with hypoxia: Status: Acute (4) Hyperlipidemia: Status: Acute (5) Atrial fibrillation: Status: Acute (6) COPD (chronic obstructive pulmonary disease): Status: Acute Reason for Visit Reason for Visit: SOB Discharge Data Studies Completed and Pending Completed Studies During Hospitalization Category Date Time Status XR chest 1V portable [id number] Stat Exams 10/02/22 12:39 Completed CV. echo complete* [id number] Routine Ultrasound 10/03/22 06:00 Completed Pending at discharge Category Date Time Status CBC Auto Diff [Complete Blood Count w/Auto] AM LABS Lab 10/04/22 04:00 Ordered Sputum Culture and Gram Stain Stat Lab 10/02/22 16:21 Uncollected Radiology Impressions Chest X-Ray 10/02/22 12:39 IMPRESSION: 1. Multiple metallic plate and screws are seen in the left ribs stable since prior . 2. Otherwise negative chest examination Laboratory Results WBC 12.9 10^3/uL (4.0-10.0) H 10/03/22 03:04 RBC 5.10 10^6/uL (4.1-5.3) 10/03/22 03:04 Hgb 14.4 g/dL (11.7-16.6) 10/03/22 03:04 Hct 44.8 % (42.0-52.0) 10/03/22 03:04 MCV 87.8 fl (80-94) 10/03/22 03:04 MCH 28.2 pg (28.0-34.0) 10/03/22 03:04 MCHC 32.1 g/dL (30.0-36.0) 10/03/22 03:04 RDW 13.2 % (12.1-15.1) 10/03/22 03:04 Plt Count 637 10^3/cmm (130-400) H 10/03/22 03:04 MPV 9.3 fL (7.4-10.4) 10/03/22 03:04 Neut % (Auto) 94.1 % 10/03/22 03:04 Lymph % (Auto) 4.4 % 10/03/22 03:04 Metcalfe % (Auto) 0.9 % 10/03/22 03:04 Eos % (Auto) 0.0 % 10/03/22 03:04 Baso % (Auto) 0.1 % 10/03/22 03:04 Neut # (Auto) 12.16 10^3/uL (1.8-7.7) H 10/03/22 03:04 Lymph # (Auto) 0.6 10^3/uL (0.8-4.8) L 10/03/22 03:04 Metcalfe # (Auto) 0.1 10^3/uL (0.2-0.9) L 10/03/22 03:04 Eos # (Auto) 0.0 10^3/uL (0.0-0.8) 10/03/22 03:04 Baso # (Auto) 0.0 10^3/uL (0.0-0.1) 10/03/22 03:04 Nucleated RBC % (auto) 0 % 10/03/22 03:04 Nucleated RBCs # 0.0 /100WBC 10/03/22 03:04 D-Dimer 0.75 ug/mIFEU (0-0.59) H 10/02/22 14:11 Specimen Type Arterial 10/02/22 13:09 Sample Site Radial, left 10/02/22 13:09 ABG pH 7.45 (7.35-7.45) 10/02/22 13:09 ABG pCO2 32.1 mmHg (35-45) L 10/02/22 13:09 ABG pO2 68.7 mmHg (80.0-100.0) L 10/02/22 13:09 ABG HCO3 22.2 mmol/L (22-26) 10/02/22 13:09 ABG Base Excess -0.8 mmol/L (-2.0-2.0) 10/02/22 13:09 Jacob Test Pos 10/02/22 13:09 Hematocrit 50.0 % (42-52) 10/02/22 13:09 O2 Delivery Device Room air 10/02/22 13:09 FiO2 21.0 % 10/02/22 13:09 Industrial Nurse ID Cak 10/02/22 13:09 Sodium 137 mmol/L (136-145) 10/03/22 06:20 Potassium 4.8 mmol/L (3.5-5.1) 10/03/22 06:20 Chloride 103 mmol/L (98-107) 10/03/22 06:20 Carbon Dioxide 23 mmol/L (22-29) 10/03/22 06:20 Anion Gap 15.8 (5-19) 10/03/22 06:20 BUN 23 mg/dL (8-23) 10/03/22 06:20 Creatinine 0.9 mg/dL (0.7-1.2) 10/03/22 06:20 GFR Calculation 85.0 mL/min (90-130) L 10/03/22 06:20 Glucose 155 mg/dL (65-115) H 10/03/22 06:20 POC Glucose 186 mg/dL (70-110) H 10/03/22 11:25 Calculated Osmolality 291 mOsm/kg (285-295) 10/03/22 06:20 Calcium 9.0 mg/dL (8.5-10.5) 10/03/22 06:20 Phosphorus 1.6 mg/dL (2.5-4.5) L 10/03/22 06:20 Magnesium 1.9 mg/dL (1.7-2.3) 10/03/22 06:20 Total Bilirubin 0.5 mg/dL (0.15-1.2) 10/02/22 14:11 AST 19 U/L (0-40) 10/02/22 14:11 ALT 18 U/L (0-41) 10/02/22 14:11 Alkaline Phosphatase 70 U/L (40-130) 10/02/22 14:11 C-Reactive Protein 112.9 mg/L (0.0-4.9) H 10/03/22 06:20 NT-Pro-B Natriuret Pep 337 pg/mL (0-125) H 10/02/22 14:11 Total Protein 8.1 g/dL (6.6-8.7) 10/02/22 14:11 Albumin 3.4 g/dL (3.5-5.2) L 10/02/22 14:11 Globulin 4.7 g/dL (1.3-4.6) H 10/02/22 14:11 Vitamin B12 830 pg/mL (232-1245) 10/02/22 14:11 Urine Opiates Screen Negative ng/mL (Negative) 10/03/22 13:07 Ur Barbiturates Screen Negative ng/mL (Negative) 10/03/22 13:07 Ur Phencyclidine Scrn Negative ng/mL (Negative) 10/03/22 13:07 Ur Amphetamines Screen Negative ng/mL (Negative) 10/03/22 13:07 U Benzodiazepines Scrn Negative ng/mL (Negative) 10/03/22 13:07 Urine Cocaine Screen Negative ng/mL (Negative) 10/03/22 13:07 U Marijuana (THC) Screen Negative ng/mL (Negative) 10/03/22 13:07 Influenza Type A Ag negative (Negative) 10/02/22 14:01 Influenza Type B Ag negative (Negative) 10/02/22 14:01 SARS-CoV-2 Ag (Rapid) negative (Negative) 10/02/22 14:01 Vitals Last Vital Signs Temp 97.5 F L 10/04/22 03:59 Pulse 113 H 10/04/22 07:31 Resp 18 10/04/22 07:31 BP 128/77 10/04/22 03:59 Pulse Ox 94 10/04/22 07:31 O2 Del Method 10/04/22 07:31 O2 Flow Rate 5 10/04/22 07:31 Discharge Plan Discharge Patient Disposition: Home Condition: Stable Prescriptions: Patric Grijalva DVT-PE Treat 30D Start 5 mg (74 tabs) tablets,dose pack 5 mg PO BID Qty: 74 0RF Rx Instructions: 5mg bid Trelegy Ellipta 100-62.5-25 mcg blister with device 1 inh inhalation DAILY Qty: 60 2RF azithromycin 250 mg Tablet 500 mg PO DAILY Qty: 5 0RF albuterol sulfate 90 mcg/actuation HFA aerosol inhaler 2 inh inhalation Q8H PRN (Reason: shortness of breath or wheezing) Qty: 8.5 3RF methylprednisolone [Medrol (Naeem)] 4 mg tablets,dose pack See Rx Instructions .ROUTE .COMPLEX Qty: 21 0RF Rx Instructions: orally per package directions Continued ipratropium-albuterol [DuoNeb] 0.5 mg-3 mg(2.5 mg base)/3 mL Solution For Nebulization 3 ml INHALATION QID atorvastatin 40 mg Tablet 40 mg PO BEDTIME Qty: 60 2RF diltiazem HCl 180 mg Capsule,Extended Release 24 Hr 180 mg PO QAM Qty: 90 3RF furosemide [Lasix] 40 mg Tablet 40 mg PO QAM Qty: 60 2RF Changed metoprolol tartrate 50 mg Tablet 100 mg PO BID Qty: 120 2RF Discontinued cetirizine [Zyrtec] 10 mg Tablet 10 mg PO QAM aspirin 325 mg Tablet 325 mg PO QAM albuterol sulfate 90 mcg/actuation Hfa Aerosol Inhaler 2 puff INHALATION QID PRN (Reason: Shortness Of Breath) Alvesco 80 mcg/actuation Hfa Aerosol Inhaler 2 puff INHALATION BID Discharge Orders: Discharge Order (Routine); Ordered 10/04/22 Ordered By: Yasmine Renteria Referrals: Alexander Fonseca DO [Physician] - Discharge Diet: Cardiac Discharge Activity: Increase activity as tolerated Patient Instructions: Opioid Safety Coding Level of Care Code Acute Chg [facility] note Diagnoses Acute exacerbation of chronic obstructive airways disease J44.1 Atrial fibrillation with RVR I48.91 Acute and chronic respiratory failure with hypoxia J96.21 Hyperlipidemia E78.5 Atrial fibrillation I48.91 COPD (chronic obstructive pulmonary disease) J44.9
[2022-10-04] MEDS: metoprolol tartrate 50 mg Tablet PO (09:02)
[2022-10-04] MEDS: azithromycin 250 mg Tablet 500 MG PO (09:02)
[2022-10-04] MEDS: pantoprazole DR 40 mg Tablet PO ×2 (09:03→17:26)
[2022-10-04 09:07] LABS: ABG PCO2 46.8 mmHg (35-45); ABG PH Result 7.39 (7.35-7.45); Alveolar-Arterial Oxygen Gradi 21.7 mmHg (5-10); Arterial Blood Gas Hematocrit 43.4 % (42-52); Base Excess ABG 2.5 mmol/L (-2.0-2.0); Blood Gas Allen Test Pos; Blood Gas Sample Site Radial, left; Blood Gas Sample Type Arterial; Carboxyhemoglobin 0.7 %THgb (0.4-20.1); HCO3 ABG 28.2 mmol/L (22-26); HGB O2 Sat 90.9 % (95-100); Ionized Calcium Level - ABG 1.3 mmol/L (1.1-1.4); Methemoglobin 0.8 % (0.4-1.5); Oxygen Saturation ABG 92.3; PO2 ABG 63.4 mmHg (80.0-100.0); Potassium Level - ABG 4.4 mmol/L (3.5-5.0); Total Hemoglobin 14.2 g/dL (14-18)
[2022-10-04] MEDS: calcium carbonate 500 mg Chew Tablet PO ×2 (09:27→20:02)
--- NOTE | 2022-10-04 10:26 | PM.PN ---
Subjective Subjective: There was plan to discharge the patient today however he is still complaining of wheezing despite getting treatment I will cancel my discharge orders I have increased the dose of IV steroids Optimize AV jadiel blocking agent Increase the dose of Cardizem Vitals/I&O/Wt Last Vital Signs Temp 98 F 10/04/22 08:00 Pulse 130 H 10/04/22 08:00 Resp 26 H 10/04/22 08:00 BP 133/88 10/04/22 08:00 Pulse Ox 93 10/04/22 08:00 O2 Del Method 10/04/22 07:31 O2 Flow Rate 5 10/04/22 07:31 10/03/22 10/04/22 10/04/22 22:59 06:59 14:59 Intake Total 480 / 840 Output Total 1000 / 1200 1000 / 2200 Balance -520 / -360 -1000 / -1360 Weight last 48 hrs Weight 104.326 kg Physical Exam Narrative: Active wheezing Patient is anxious Currently on 5 L nasal cannula Required BiPAP last night Awake and alert No signs of clinical signs of fluid overload Abdomen soft Venous stasis dermatitis EOMI, PERRLA Nonfocal neuro exam Variable S1-S2 Data 10/03/22 03:04 10/03/22 06:20 A&P Assessment and plan (1) Acute exacerbation of chronic obstructive airways disease: (2) Atrial fibrillation with RVR: (3) COPD (chronic obstructive pulmonary disease): Plan Acute COPD exacerbation A. fib RVR Increase the dose of Cardizem to 360 mg daily and increase metoprolol to 75 mg twice a day Continue therapeutic Lovenox, trying to arrange Eliquis at the time of discharge via 340 B program Cancel discharge planning for today Home oxygen evaluation will be done at the time of discharge Pressure therapist notified We will give him 1 dose of Cardizem IV push because of A. fib RVR Will give 1 dose of Lasix Increase the dose of steroids Full code Regular diet Patient is complaining of GERD, most likely gastritis, received GI cocktail twice, will schedule Protonix and Tums ABG this morning showed relative hypoxia Attestations Medical Necessity Statement*: Continue medical management Time Spent in Patient Care: 40 Coding Level of Care Code Acute Treating Engineer Helper for Chg Fwd Diagnoses Acute exacerbation of chronic obstructive airways disease J44.1 Atrial fibrillation with RVR I48.91 COPD (chronic obstructive pulmonary disease) J44.9
[2022-10-04] MEDS: FUROsemide 10 mg/mL SDV 2mL 20 MG IVP (10:52)
[2022-10-04] MEDS: dilTIAZem 5 mg/mL SDV 5 mL 10 MG IVP (10:52)
--- NOTE | 2022-10-04 11:03 | CTR_ITS ---
PROCEDURE INFORMATION: Exam: CTA Chest With Contrast Exam date and time: 10/04/2022 11:48 AM Age: 62 years old Clinical indication: Shortness of breath; Prior surgery; Additional info: Hypoxia TECHNIQUE: Imaging protocol: Computed tomographic angiography of the chest with contrast. 3D rendering (Not supervised by radiologist): MIP and/or 3D reconstructed images were created by the technologist. Radiation optimization: All CT scans at this facility use at least one of these dose optimization techniques: automated exposure control; mA and/or kV adjustment per patient size (includes targeted exams where dose is matched to clinical indication); or iterative reconstruction. Contrast material: OMNI 350; Contrast volume: 100 ml; Contrast route: INTRAVENOUS (IV); COMPARISON: CR (CHEST, ) 10/02/2022 12:56 PM RADIATION DOSE METRICS: Total DLP (mGy-cm): 612.16 FINDINGS: Pulmonary arteries: Normal. No pulmonary emboli. Aorta: Unremarkable. No aortic aneurysm. No aortic dissection. Lungs: There is prominent pulmonary emphysema with scattered interstitial fibrosis. Patchy alveolar infiltrates are present in the left lung which may be acute pneumonia. Pleural spaces: Unremarkable. No pneumothorax. No pleural effusion. Heart: Heart is enlarged. There is no significant coronary artery calcification. Lymph nodes: Unremarkable. No enlarged lymph nodes. Bones/joints: Metal plates and screws transfix old left rib fractures. No acute bony abnormality. Soft tissues: Unremarkable. CT/CT angio chest PE protcl [id number] IMPRESSION: 1. No evidence of pulmonary embolus. 2. Severe pulmonary emphysema. 3. Patchy left lung infiltrates likely due to a pneumonia. COMMENTS: In the absence of a history or active diagnosis of lung cancer, it is recommended that this patient with emphysema be evaluated for enrollment in a low dose CT lung cancer screening program.
[2022-10-04] MEDS: iohexol 350 mg/mL 500 mL Btl (per mL) IV (12:06)
--- NOTE | 2022-10-04 12:07 | PC.CHAP ---
Pastoral Care Encounter/Spiritual Assessment Type of Contact [] Declined software test technician visit [] Patient/Family/Request visit [] Outpatient visit [] Follow-up visit [] Physician referral [] Code/Alert [X] Routine visit [] Staff referral [] Actively dying [] Patient sleeping [] Family support [] [] Out of room [] Palliative care [] [] Receiving care in room [] Pre-surgical visit [] Trauma [] Long length of stay [] ICU visit [] Other: Relational/Emotional Strength [] Patient feels connected with others/family/visitors/staff [X] Distress [] Loneliness/isolation [] Abandonment Spirituality of Patient [] Person of Xenia [] Attends Congregation of their Xenia [X] Believes in Prayer [X] Reads Bible or Mandaeism materials [] There are Spiritual issues to be addressed Masticator Interventions [X] Prayer [X] Active listening [] Non-anxious presence [X] Spiritual/emotional support [] Crisis/trauma care [] Spiritual counseling [] Bereavement support [] Provided bereavement packet [X] Provided Bible/devotional materials [] Provided toy/stuffed animal, coloring book to patient or family member [] Provided Communion [] Anointing/[place] [] Salvation [X] Completed spiritual assessment [] Other: Impact on Illness or Injury [] Angry [] Fearful [] Anxious [] Often cries [] Exhaustion [] Unable to work [] Unable to attend restoration [] Unable to walk/stand [] Unable to read [] Unable to drive [] Unable to eat/drink [] Unable to sleep [] Unable to be with family [] Patient intubated [] Other: Summary Time spent with patient 10 MIN
[2022-10-04] MEDS: guaiFENesin-codeine UDC 10 mL 5 ML PO ×2 (12:19→20:02)
[2022-10-04] MEDS: ipratropium 0.5 mg/2.5 mL Neb INHALATION ×2 (15:23→20:08)
[2022-10-04] MEDS: metoprolol tartrate 50 mg Tablet 75 MG PO (17:26)
[2022-10-04] MEDS: budesonide 0.5 mg/2 mL Neb INHALATION (20:08)
[2022-10-05] VITALS (7 sets, daily range): BP systolic 118–119; BP diastolic 77–84; PULSE 89–114; RESP 15–24; TEMP 36.3–36.9; O2SAT 87–93
[2022-10-05] MEDS: lidocaine 2% viscous 15 ML, aluminum-mag hydrox-simethicon 30 ML, sucralfate oral liq 1 GM PO ×2 (01:13→12:45)
[2022-10-05] MEDS: enoxaparin 100 mg/mL Syringe SUBCUT (05:52)
[2022-10-05] MEDS: ipratropium 0.5 mg/2.5 mL Neb INHALATION ×2 (09:02→11:07)
[2022-10-05] MEDS: budesonide 0.5 mg/2 mL Neb INHALATION (09:03)
[2022-10-05] MEDS: levalbuterol 0.63 mg/3 mL Neb INHALATION ×2 (09:04→11:07)
[2022-10-05] MEDS: azithromycin 250 mg Tablet 500 MG PO (09:16)
[2022-10-05] MEDS: dilTIAZem ER (24HR) 300 mg Capsule PO (09:16)
[2022-10-05] MEDS: pantoprazole DR 40 mg Tablet PO (09:17)
[2022-10-05] MEDS: metoprolol tartrate 50 mg Tablet 75 MG PO (09:17)
[2022-10-05] MEDS: calcium carbonate 500 mg Chew Tablet PO (09:54)
--- NOTE | 2022-10-05 10:17 | PM.DCS ---
Discharge Providers Date of Admission: 10/02/22 16:18 Date of Discharge: October 05, 2022 Attending Provider at Admission: Yasmine Renteria MD Attending Provider at Discharge: Yasmine Renteria MD Diagnoses at Discharge Discharge Diagnosis (1) Acute exacerbation of chronic obstructive airways disease: Status: Acute (2) Atrial fibrillation with RVR: Status: Acute (3) COPD (chronic obstructive pulmonary disease): Status: Acute Reason for Visit Reason for Visit: SOB Hospital Course Hospital Course 62-year male, noncompliant, active smoker, history of COPD and A. 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 fib RVR and worsening of shortness of breath, acute COPD exacerbation. He had audible wheezing which took 48 hours to control with IV steroids, he was diagnosed with left-sided pneumonia required antibiotics, he remained afebrile, for A. fib RVR his AV jadiel blocking agents were optimized, his heart rate fluctuated between 95-1 10, cultures negative, CTA ruled out PE consistent with COPD, he is requiring 4 to 4.5 L of oxygen, patient does not have insurance, I have recommended Eliquis, we have given him Eliquis 340 B program. Patient is getting Cardizem and metoprolol at the time of discharge along Eliquis, trilogy, Medrol pack, azithromycin. I will give him referral to see Dr. Baker outpatient and PCP Dr. Turcios. High risk for readmissions because of noncompliance, smoker Physical Exam Narrative: Awake and alert S1, S2 Rate able A. fib heart rate around 99-1 05 No signs of fluid overload Lower extremity venous stasis dermatitis Currently on 4.5 L Mild wheezing on lung auscultation Discharge Data Studies Completed and Pending Completed Studies During Hospitalization Category Date Time Status CTA PE [CT angio chest PE protcl [id number]] Routine Cat Scan 10/04/22 11:03 Completed XR chest 1V portable [id number] Stat Exams 10/02/22 12:39 Completed CV. echo complete* [id number] Routine Ultrasound 10/03/22 06:00 Completed Pending at discharge Category Date Time Status ABG FULL [Arterial Blood Gas Full] Stat Lab 10/04/22 08:56 Results CBC Auto Diff [Complete Blood Count w/Auto] AM LABS Lab 10/04/22 04:00 Ordered CDIFF [Clostridioides Difficile PCR] Routine Lab 10/04/22 18:29 Received D Dimer Routine Lab 10/04/22 10:30 Ordered Sputum Culture and Gram Stain Stat Lab 10/02/22 16:21 Uncollected Radiology Impressions Chest X-Ray 10/02/22 12:39 IMPRESSION: 1. Multiple metallic plate and screws are seen in the left ribs stable since prior . 2. Otherwise negative chest examination Chest CTA 10/04/22 11:03 IMPRESSION: 1. No evidence of pulmonary embolus. 2. Severe pulmonary emphysema. 3. Patchy left lung infiltrates likely due to a pneumonia. COMMENTS: In the absence of a history or active diagnosis of lung cancer, it is recommended that this patient with emphysema be evaluated for enrollment in a low dose CT lung cancer screening program. Laboratory Results WBC 12.9 10^3/uL (4.0-10.0) H 10/03/22 03:04 RBC 5.10 10^6/uL (4.1-5.3) 10/03/22 03:04 Hgb 14.4 g/dL (11.7-16.6) 10/03/22 03:04 Hct 44.8 % (42.0-52.0) 10/03/22 03:04 MCV 87.8 fl (80-94) 10/03/22 03:04 MCH 28.2 pg (28.0-34.0) 10/03/22 03:04 MCHC 32.1 g/dL (30.0-36.0) 10/03/22 03:04 RDW 13.2 % (12.1-15.1) 10/03/22 03:04 Plt Count 637 10^3/cmm (130-400) H 10/03/22 03:04 MPV 9.3 fL (7.4-10.4) 10/03/22 03:04 Neut % (Auto) 94.1 % 10/03/22 03:04 Lymph % (Auto) 4.4 % 10/03/22 03:04 Thayer % (Auto) 0.9 % 10/03/22 03:04 Eos % (Auto) 0.0 % 10/03/22 03:04 Baso % (Auto) 0.1 % 10/03/22 03:04 Neut # (Auto) 12.16 10^3/uL (1.8-7.7) H 10/03/22 03:04 Lymph # (Auto) 0.6 10^3/uL (0.8-4.8) L 10/03/22 03:04 Thayer # (Auto) 0.1 10^3/uL (0.2-0.9) L 10/03/22 03:04 Eos # (Auto) 0.0 10^3/uL (0.0-0.8) 10/03/22 03:04 Baso # (Auto) 0.0 10^3/uL (0.0-0.1) 10/03/22 03:04 Nucleated RBC % (auto) 0 % 10/03/22 03:04 Nucleated RBCs # 0.0 /100WBC 10/03/22 03:04 D-Dimer 0.75 ug/mIFEU (0-0.59) H 10/02/22 14:11 Specimen Type Arterial 10/04/22 08:56 Sample Site Radial, left 10/04/22 08:56 ABG pH 7.39 (7.35-7.45) 10/04/22 08:56 ABG pCO2 46.8 mmHg (35-45) H 10/04/22 08:56 ABG pO2 63.4 mmHg (80.0-100.0) L 10/04/22 08:56 ABG HCO3 28.2 mmol/L (22-26) H 10/04/22 08:56 ABG O2 Saturation 92.3 10/04/22 08:56 ABG Base Excess 2.5 mmol/L (-2.0-2.0) H 10/04/22 08:56 Jacob Test Pos 10/04/22 08:56 A-a O2 Gradient 21.7 mmHg (5-10) H 10/04/22 08:56 Hematocrit 43.4 % (42-52) 10/04/22 08:56 Hgb O2 Saturation 90.9 % (95-100) L 10/04/22 08:56 Carboxyhemoglobin 0.7 %THgb (0.4-20.1) 10/04/22 08:56 Methemoglobin 0.8 % (0.4-1.5) 10/04/22 08:56 Total Hemoglobin 14.2 g/dL (14-18) 10/04/22 08:56 Sodium 141.0 mmol/L (131-143) 10/04/22 08:56 Potassium 4.4 mmol/L (3.5-5.0) 10/04/22 08:56 Glucose 148.0 mg/dL (70-115) H 10/04/22 08:56 Ionized Calcium 1.3 mmol/L (1.1-1.4) 10/04/22 08:56 O2 Delivery Device Room air 10/02/22 13:09 O2 Liters/Min 4.0 % 10/04/22 08:56 FiO2 40.0 % 10/04/22 08:56 Inbound Sales Consultant ID [email or web address] 10/04/22 08:56 Sodium 137 mmol/L (136-145) 10/03/22 06:20 Potassium 4.8 mmol/L (3.5-5.1) 10/03/22 06:20 Chloride 103 mmol/L (98-107) 10/03/22 06:20 Carbon Dioxide 23 mmol/L (22-29) 10/03/22 06:20 Anion Gap 15.8 (5-19) 10/03/22 06:20 BUN 23 mg/dL (8-23) 10/03/22 06:20 Creatinine 0.9 mg/dL (0.7-1.2) 10/03/22 06:20 GFR Calculation 85.0 mL/min (90-130) L 10/03/22 06:20 Glucose 155 mg/dL (65-115) H 10/03/22 06:20 POC Glucose 186 mg/dL (70-110) H 10/03/22 11:25 Calculated Osmolality 291 mOsm/kg (285-295) 10/03/22 06:20 Calcium 9.0 mg/dL (8.5-10.5) 10/03/22 06:20 Phosphorus 1.6 mg/dL (2.5-4.5) L 10/03/22 06:20 Magnesium 1.9 mg/dL (1.7-2.3) 10/03/22 06:20 Total Bilirubin 0.5 mg/dL (0.15-1.2) 10/02/22 14:11 AST 19 U/L (0-40) 10/02/22 14:11 ALT 18 U/L (0-41) 10/02/22 14:11 Alkaline Phosphatase 70 U/L (40-130) 10/02/22 14:11 C-Reactive Protein 112.9 mg/L (0.0-4.9) H 10/03/22 06:20 NT-Pro-B Natriuret Pep 337 pg/mL (0-125) H 10/02/22 14:11 Total Protein 8.1 g/dL (6.6-8.7) 10/02/22 14:11 Albumin 3.4 g/dL (3.5-5.2) L 10/02/22 14:11 Globulin 4.7 g/dL (1.3-4.6) H 10/02/22 14:11 Vitamin B12 830 pg/mL (232-1245) 10/02/22 14:11 Urine Opiates Screen Negative ng/mL (Negative) 10/03/22 13:07 Ur Barbiturates Screen Negative ng/mL (Negative) 10/03/22 13:07 Ur Phencyclidine Scrn Negative ng/mL (Negative) 10/03/22 13:07 Ur Amphetamines Screen Negative ng/mL (Negative) 10/03/22 13:07 U Benzodiazepines Scrn Negative ng/mL (Negative) 10/03/22 13:07 Urine Cocaine Screen Negative ng/mL (Negative) 10/03/22 13:07 U Marijuana (THC) Screen Negative ng/mL (Negative) 10/03/22 13:07 Influenza Type A Ag negative (Negative) 10/02/22 14:01 Influenza Type B Ag negative (Negative) 10/02/22 14:01 SARS-CoV-2 Ag (Rapid) negative (Negative) 10/02/22 14:01 Vitals Last Vital Signs Temp 97.6 F 10/05/22 08:03 Pulse 114 H 10/05/22 09:22 Resp 24 H 10/05/22 09:00 BP 119/77 10/05/22 08:03 Pulse Ox 93 10/05/22 09:00 O2 Del Method 10/05/22 09:00 O2 Flow Rate 5 10/05/22 09:00 Discharge Plan Discharge Patient Disposition: Home Condition: Stable Prescriptions: New azithromycin 250 mg Tablet 500 mg PO DAILY Qty: 5 0RF Eliquis DVT-PE Treat 30D Start 5 mg (74 tabs) tablets,dose pack 5 mg PO BID Qty: 74 0RF Rx Instructions: 5mg bid Medrol (Naeem) 4 mg tablets,dose pack See Rx Instructions .ROUTE .COMPLEX Qty: 21 0RF Rx Instructions: orally per package directions albuterol sulfate 90 mcg/actuation HFA aerosol inhaler 2 inh inhalation Q8H PRN (Reason: shortness of breath or wheezing) Qty: 8.5 3RF Trelegy Ellipta 100-62.5-25 mcg blister with device 1 inh inhalation DAILY Qty: 60 2RF Continued ipratropium-albuterol 0.5 mg-3 mg(2.5 mg base)/3 mL Solution For Nebulization 3 ml INHALATION QID Lasix 40 mg Tablet 40 mg PO QAM Qty: 60 2RF atorvastatin 40 mg Tablet 40 mg PO BEDTIME Qty: 60 2RF diltiazem HCl 180 mg Capsule,Extended Release 24 Hr 180 mg PO QAM Qty: 90 3RF Changed metoprolol tartrate 50 mg Tablet 100 mg PO BID Qty: 120 2RF Discontinued cetirizine [Zyrtec] 10 mg Tablet 10 mg PO QAM aspirin 325 mg Tablet 325 mg PO QAM albuterol sulfate 90 mcg/actuation Hfa Aerosol Inhaler 2 puff INHALATION QID PRN (Reason: Shortness Of Breath) Alvesco 80 mcg/actuation Hfa Aerosol Inhaler 2 puff INHALATION BID Discharge Orders: Discharge Order (Routine); Ordered 10/05/22 Ordered By: Yasmine Renteria Referrals: Alexander Fonseca DO [Physician] - 10/13/22 8:00 am Datar,Scott Haddad MD [Physician] - 11/19/22 11:30 am Discharge Diet: Cardiac Discharge Activity: Increase activity as tolerated Patient Instructions: Atrial Fibrillation, COPD, Albuterol (By breathing), Azithromycin (By mouth), Methylprednisolone (By mouth), Apixaban (By mouth), Fluticasone/Umeclidinium/Vilanterol (By breathing) (Trelegy Ellipta), Using Oxygen at Home (ED), COPD Stoplight, Opioid Safety Discharge Attestations Time Spent in Discharge Care*: less than 30 min Quality Metrics Clinical Quality Measures [ No reported AMI, CVA or VTE this stay] Coding Level of Care Code Acute Chg FW DC note Diagnoses Acute exacerbation of chronic obstructive airways disease J44.1 Atrial fibrillation with RVR I48.91 COPD (chronic obstructive pulmonary disease) J44.9
[2022-10-05 16:23] LABS: Oxygen Device NC
--- NOTE | 2022-10-11 11:23 | PC.SOCIAL ---
[facility] Patient Assistance Patient's assistance for eloquis approved. Attempted to call and update patient of this; he did not answer. Medication will be mailed to patient's home.
== END 2022-10-05 13:57 | disposition home or self-care (01) ==
LOC: ER 16:01 → MEDSURG 17:25
PROVIDERS: Admitting Provider Internal Medicine; Emergency Provider Emergency Medicine; Visit Provider Internal Medicine
DX: J44.1 Chronic obstructive pulmonary disease with (acute) exacerbation (principal); I48.91 Unspecified atrial fibrillation; Z91.199 Patient's noncompliance with other medical treatment and regimen due to unspecified reason; E78.5 Hyperlipidemia, unspecified; J96.21 Acute and chronic respiratory failure with hypoxia; Z79.82 Long term (current) use of aspirin; F17.210 Nicotine dependence, cigarettes, uncomplicated
CPT/HCPCS: 36415; 36416; 36600; 71045; 71275; 80048; 80051; 80053; 80306; 82330; 82607; 82803; 82805; 82962; 83735; 83880; 84100; 85025; 85378; 86140; 87426; 87493; 87804; 93005; 93306; 94640; 94660; 94664; 94760; 96372; 96374; 96375; 96376; 99285; G0378; J1650; J1940; J2920; J2930; J3490; J3535; J7030; J7613; J7614; J7626; J7644; Q0144; Q9967

== ENCOUNTER 2022-11-11 09:45 | Inpatient (IN) | payer MEDICAID, SELFPAY ==
[2022-11-11] VITALS (33 sets, daily range): BP systolic 98–155; BP diastolic 63–103; PULSE 73–140; RESP 18–40; TEMP 36.3–36.5; O2SAT 86–99; BMI 33.5
--- NOTE | 2022-11-11 09:52 | XR_ITS ---
WS: [id number] Portable AP upright chest, 11/11/2022 Clinical Data: dyspnea/cough Comparison: Portable chest, 10/02/2022 Findings: No nodules, masses or effusions are seen. The heart is minimally enlarged. The pulmonary va scularity is slightly increased. No pneumonia or pneumothorax is seen. There are orthopedic plates on the lateral aspect of the left third, fourth and fifth ribs applied with screws unchanged. There are monitor leads on the chest wall. XR/XR chest 1V portable [id number] Impression: Mild cardiomegaly with minimal pulmonary vascular congestion.
--- NOTE | 2022-11-11 09:53 | W.ED.SOB ---
HPI - SOB/Dyspnea General: Chief Complaint: Shortness of Breath/Dyspnea Stated Complaint: SOB Time Seen by Provider: 11/11/22 09:51 Source: patient Mode of arrival: ambulatory History of Present Illness: HPI Narrative: 62-year-old male with a history of COPD is chronically on oxygen presents to the emergency room with complaints of progressively worsening shortness of breath over the last week. He has not seen anyone. He is normally on 2 to 3 L on arrival here the triage had his oxygen sat in the 50s when he got to the trauma bay and he was in the low 90s. He was immediately put on BiPAP due to his work of breathing is extremely tight with expiratory wheezes he denies chest pain no recent fever sweats or chills has felt very congested. He also has a known history of atrial fibrillation and congestive heart failure. He is on Eliquis and diltiazem as well as Lasix and metoprolol tartrate. His last breathing treatment was about 2 hours prior to arrival he denies any fever. MD elicited complaint: shortness of breath and cough Pertinent past history: COPD, congestive heart failure and other (Atrial fibrillation) Onset (ago): week(s) (1) Timing: constant Severity: severe Exacerbating factors: exertion and coughing Relieving factors: oxygen, rest and bronchodilators Known history of: congestive heart failure and other (Atrial fibrillation) Associated symptoms: Reports chest congestion, cough, diaphoresis and palpitations; Deny abdominal pain, chest pain, dizziness, extremity pain, fever(s), hemoptysis, lightheadedness, myalgias, nausea, orthopnea, paresthesias, polydipsia, polyuria, rash, sense of impending doom, syncope or vomiting Treatment prior to arrival: oxygen Review of Systems Const: Reports: diaphoresis; Denies: fever(s) Card: Reports: palpitations; Denies: chest pain, lightheadedness, syncope or orthopnea Resp: Reports: chest congestion; Denies: hemoptysis GI: Denies: abdominal pain, nausea or vomiting Musc: Denies: extremity pain Neuro: Denies: dizziness Endo: Denies: polyuria or polydipsia PFS ED PFSH: Medical History Acute and chronic respiratory failure with hypoxia Acute exacerbation of chronic obstructive airways disease Atrial fibrillation Atrial fibrillation with RVR COPD (chronic obstructive pulmonary disease) Hyperlipidemia Rib deformity Surgical History History of colon surgery Family History Denies family history of Chronic kidney disease (CKD) Social History Smoking and tobacco status: current every day smoker Alcohol intake: current Alcohol intake frequency: holidays/special occasions only Physical Exam Const: GENERAL APPEARANCE: cooperative and comfortable ORIENTATION/CONSCIOUSNESS: Yes awake, Yes oriented to person, Yes oriented to place and Yes oriented to time HENMT: COMMON NORMALS: normocephalic, atraumatic and hearing grossly normal bilaterally HEAD & SCALP: normocephalic and atraumatic Resp: COMMON NORMALS: normal respiratory effort, No retractions and No use of accessory muscles AUSCULTATION: crackles Cardio: COMMON NORMALS: No murmurs present (Cardio) RATE: tachycardic RHYTHM: abnormal rhythm irregularly irregular GI: COMMON NORMALS: Soft to palpation and No hepatosplenomegaly present AUSCULTATION: Yes normoactive bowel sounds PALPATION: Yes Soft to palpation, No Tenderness to palpation present (GI), No Guarding due to palpation present (GI) and Yes No hepatosplenomegaly present Extremity: COMMON NORMALS: normal to inspection, capillary refill normal, no clubbing, cyanosis or edema, no calf tenderness and no pedal edema Neuro: SENSORIUM/ORIENTATION: Yes oriented to person, Yes oriented to place and Yes oriented to time Skin: COMMON NORMALS: no rashes or lesions noted GENERAL SKIN EXAM: no rashes or lesions noted Course Vital Signs: Vital signs: Vital Signs Temperature 97.4 F L 11/15/22 04:00 Pulse Rate 87 11/15/22 13:23 Respiratory Rate 20 H 11/15/22 13:23 Blood Pressure 122/98 11/15/22 08:00 Pulse Oximetry 92 11/15/22 13:23 Oxygen Delivery Me thod 11/15/22 13:23 Oxygen Flow Rate 6 11/15/22 13:23 Fraction of Inspir ed Oxygen 50 11/15/22 12:00 MDM - SOB/Dyspnea Medical Decision Making A-fib with RVR acute congestive heart failure was worsening symptoms due to the A-fib. Started on Cardizem diurese aggressive pulmonary toilet for COPD exacerbation discussed with hospitalist orders written Labs imaging and EKGs reviewed no acute ST changes on EKG Medical Records I reviewed the patient's medical records. Lab Data I reviewed the patient's lab results. 11/11/22 10:10 11/11/22 10:10 Labs/Radiology: Radiology Impressions Chest X-Ray 11/11/22 09:52 Impression: Mild cardiomegaly with minimal pulmonary vascular congestion. Chest CT 11/12/22 08:58 IMPRESSION: 1. Significant motion and breathing artifact compromising exam. 2. Continued interstitial thickening and tree-in-bud airspace disease greatest throughout the LEFT lung. Most consistent with pneumonitis and endobronchial pneumonia. No dense consolidation. 3. Moderately enlarged heart. 4. No significant adenopathy identified. Laboratory Results WBC 14.5 10^3/uL (4.0-10.0) H 11/11/22 10:10 RBC 5.31 10^6/uL (4.1-5.3) H 11/11/22 10:10 Hgb 15.1 g/dL (11.7-16.6) 11/11/22 10:10 Hct 47.0 % (42.0-52.0) 11/11/22 10:10 MCV 88.5 fl (80-94) 11/11/22 10:10 MCH 28.4 pg (28.0-34.0) 11/11/22 10:10 MCHC 32.1 g/dL (30.0-36.0) 11/11/22 10:10 RDW 14.6 % (12.1-15.1) 11/11/22 10:10 Plt Count 496 10^3/cmm (130-400) H 11/11/22 10:10 MPV 9.4 fL (7.4-10.4) 11/11/22 10:10 Neut % (Auto) 81.0 % 11/11/22 10:10 Lymph % (Auto) 10.8 % 11/11/22 10:10 [place] % (Auto) 7.3 % 11/11/22 10:10 Eos % (Auto) 0.1 % 11/11/22 10:10 Baso % (Auto) 0.3 % 11/11/22 10:10 Neut # (Auto) 11.72 10^3/uL (1.8-7.7) H 11/11/22 10:10 Lymph # (Auto) 1.6 10^3/uL (0.8-4.8) 11/11/22 10:10 [place] # (Auto) 1.1 10^3/uL (0.2-0.9) H 11/11/22 10:10 Eos # (Auto) 0.0 10^3/uL (0.0-0.8) 11/11/22 10:10 Baso # (Auto) 0.0 10^3/uL (0.0-0.1) 11/11/22 10:10 Nucleated RBC % (auto) 0 % 11/11/22 10:10 Nucleated RBCs # 0.0 /100WBC 11/11/22 10:10 Specimen Type Arterial 11/11/22 09:51 Sample Site Radial, right 11/11/22 09:51 ABG pH 7.40 (7.35-7.45) 11/11/22 09:51 ABG pCO2 40.6 mmHg (35-45) 11/11/22 09:51 ABG pO2 146.0 mmHg (80.0-100.0) H 11/11/22 09:51 ABG HCO3 25.2 mmol/L (22-26) 11/11/22 09:51 ABG O2 Saturation 100.0 11/11/22 09:51 ABG Base Excess 0.4 mmol/L (-2.0-2.0) 11/11/22 09:51 Jacob Test Pos 11/11/22 09:51 A-a O2 Gradient 20.3 mmHg (5-10) H 11/11/22 09:51 Hematocrit 46.7 % (42-52) 11/11/22 09:51 Hgb O2 Saturation 98.5 % (95-100) 11/11/22 09:51 Carboxyhemoglobin 1.3 %THgb (0.4-20.1) 11/11/22 09:51 Methemoglobin 0.2 % (0.4-1.5) L 11/11/22 09:51 Total Hemoglobin 15.2 g/dL (14-18) 11/11/22 09:51 Sodium 137.0 mmol/L (131-143) 11/11/22 09:51 Potassium 3.8 mmol/L (3.5-5.0) 11/11/22 09:51 Glucose 141.0 mg/dL (70-115) H 11/11/22 09:51 Ionized Calcium 1.3 mmol/L (1.1-1.4) 11/11/22 09:51 O2 Delivery Device Bipap 11/11/22 09:51 FiO2 50.0 % 11/11/22 09:51 Slitting And Shipping Supervisor ID [place]ro 11/11/22 09:51 Sodium 135 mmol/L (136-145) L 11/11/22 10:10 Potassium 4.1 mmol/L (3.5-5.1) 11/11/22 10:10 Chloride 94 mmol/L (98-107) L 11/11/22 10:10 Carbon Dioxide 27 mmol/L (22-29) 11/11/22 10:10 Anion Gap 18.1 (5-19) 11/11/22 10:10 BUN 10 mg/dL (8-23) 11/11/22 10:10 Creatinine 1.0 mg/dL (0.7-1.2) 11/11/22 10:10 GFR Calculation 75.2 mL/min (90-130) L 11/11/22 10:10 Glucose 128 mg/dL (65-115) H 11/11/22 10:10 POC Glucose 186 mg/dL (70-110) H 11/12/22 00:21 Calculated Osmolality 281 mOsm/kg (285-295) L 11/11/22 10:10 Calcium 9.8 mg/dL (8.5-10.5) 11/11/22 10:10 Total Bilirubin 0.7 mg/dL (0.15-1.2) 11/11/22 10:10 AST 22 U/L (0-40) 11/11/22 10:10 ALT 16 U/L (0-41) 11/11/22 10:10 Alkaline Phosphatase 97 U/L (40-130) 11/11/22 10:10 Total Protein 8.3 g/dL (6.6-8.7) 11/11/22 10:10 Albumin 3.7 g/dL (3.5-5.2) 11/11/22 10:10 Globulin 4.6 g/dL (1.3-4.6) 11/11/22 10:10 Urine Color Yellow (Yellow) 11/12/22 03:05 Urine Appearance Clear (CLEAR) 11/12/22 03:05 Urine pH 5 (5-7) 11/12/22 03:05 Ur Specific [place] 1.020 (1.005-1.030) 11/12/22 03:05 Urine Protein 1+ (Negative) H 11/12/22 03:05 Urine Glucose (UA) 2+ (Normal) H 11/12/22 03:05 Urine Ketones 1+ (Negative) H 11/12/22 03:05 Urine Blood 2+ (Negative) H 11/12/22 03:05 Urine Nitrate Negative (Negative) 11/12/22 03:05 Urine Bilirubin Neg (Negative) 11/12/22 03:05 Urine Urobilinogen 1 mg/dL (Negative) H 11/12/22 03:05 Ur Leukocyte Esterase Negative (Negative) 11/12/22 03:05 Urine RBC 0-4 /hpf (0-2) H 11/12/22 03:05 Urine WBC 0-4 /hpf (0-5) H 11/12/22 03:05 Ur Squamous Epith Cells 0-4 /hpf (0-5) H 11/12/22 03:05 Amorphous Sediment Not Reportable 11/12/22 03:05 Urine Bacteria Trace /hpf (NONE) 11/12/22 03:05 Hyaline Casts 0-4 /lpf H 11/12/22 03:05 Urine Mucus 4+ /hpf 11/12/22 03:05 Nasal Influ A H1 2009 PCR Not detected (NOT DETECT) 11/11/22 11:46 Coronavirus 229E (PCR) Not detected (NOT DETECT) 11/11/22 11:46 Influenza A (H1) PCR Not detected (NOT DETECT) 11/11/22 11:46 Influenza A (H3) PCR Not detected (NOT DETECT) 11/11/22 11:46 Influenza Type A (PCR) Not detected (NOT DETECT) 11/11/22 11:46 Influenza Type B (PCR) Not detected (NOT DETECT) 11/11/22 11:46 SARS-CoV-2 (PCR) Not detected (NOT DETECT) 11/11/22 11:46 Discharge Plan Discharge Patient Disposition: Admitted As Inpatient Admit Provider: Yasmine Renteria Clinical Impression: COPD exacerbation, Afib, Congestive heart failure Condition: Stable Coding Level of Care Code ED Hat Body Inspector for Emily Talbot
[2022-11-11 10:03] LABS: ABG PCO2 40.6 mmHg (35-45); Arterial Blood Gas Hematocrit 46.7 % (42-52); Base Excess ABG 0.4 mmol/L (-2.0-2.0); Blood Gas Allen Test Pos; Blood Gas Sample Type Arterial; Carboxyhemoglobin 1.3 %THgb (0.4-20.1); HCO3 ABG 25.2 mmol/L (22-26); HGB O2 Sat 98.5 % (95-100); Ionized Calcium Level - ABG 1.3 mmol/L (1.1-1.4); Methemoglobin 0.2 % (0.4-1.5); Potassium Level - ABG 3.8 mmol/L (3.5-5.0); Total Hemoglobin 15.2 g/dL (14-18)
[2022-11-11 10:04] LABS: Alveolar-Arterial Oxygen Gradi 20.3 mmHg (5-10); Blood Gas Operator Identificat MONRO; Blood Gas Sample Site Radial, right; Oxygen Device BIPAP
--- NOTE | 2022-11-11 10:09 | ECG_ITS ---
[facility] Test Date: 2022-11-11 Pat Name: Gareth Pickering Department: Room: Gender: Male Manager Convention: : 1960 Requested By: Naren Fountain Order Number: [id number] Natalya MD: Tino Loweyr M.D. Measurements Intervals [place] Rate: 163 P: 0 VT: 0 QRS: 79 QRSD: 102 T: 47 QT: 263 QTc: 434 Interpretive Statements ATRIAL FIBRILLATION WITH RAPID VENTRICULAR RESPONSE INCOMPLETE RIGHT BUNDLE BRANCH BLOCK [90+ ms QRS DURATION, TERMINAL R IN V1/V2, 40+ ms S IN I/aVL/V4/V5/V6] MINIMAL ST DEPRESSION [0.025+ mV ST DEPRESSION] CRITICAL TEST RESULT INTERPRETATION BASED ON A DEFAULT AGE OF 40 YEARS Compared to ECG 10/02/2022 12:44:06 ST (T wave) deviation now present Myocardial infarct finding no longer present Electronically Signed On 11-11-2022 20:02:52 BANKING PIN ADJUSTER by Tino Lowery M.D. [id number]
[2022-11-11] MEDS: ipratropium-albuterol 3 mL Neb 6 ML INHALATION (10:10)
[2022-11-11] MEDS: dilTIAZem 5 mg/mL SDV 5 mL 20 MG IVP (10:15)
[2022-11-11 10:26] LABS: Basophils % 0.3 %; Eosinophils % 0.1 %; Hemoglobin 15.1 g/dL (11.7-16.6); Lymphocytes # 1.6 10^3/uL (0.8-4.8); Lymphocytes % 10.8 %; Mean Corpuscular HGB Conc 32.1 g/dL (30.0-36.0); Mean Corpuscular Hemoglobin 28.4 pg (28.0-34.0); Mean Corpuscular Volume 88.5 fl (80-94); Mean Platelet Volume 9.4 fL (7.4-10.4); Monocytes # 1.1 10^3/uL (0.2-0.9); Monocytes % 7.3 %; Neutrophils # 11.72 10^3/uL (1.8-7.7); Nucleated Red Blood Cells % 0 %; Platelet Count 496 10^3/cmm (130-400); Red Blood Count 5.31 10^6/uL (4.1-5.3); Red Cell Distribution Width 14.6 % (12.1-15.1); White Blood Count 14.5 10^3/uL (4.0-10.0)
--- NOTE | 2022-11-11 10:32 | PC.PHAR ---
PT SEEMS ALTERED- UNABLE TO VERIFY MEDS- CALLED [facility] TALKED TO ZOE AND VERIFIED WHAT PRESCRIPTIONS PT LAST FILLED AND PICKED UP VENTOLIN INHALER, TRELEGY INHALER, MEDROL PACK, AZITHROMYCIN AND ELIQUIS WERE FILLED AND PICKED UP ON 10/05/22- PT STS HE IS ONLY TAKING ELIQUIS 5MG BID BECAUSE [facility] HAS NOT FILLED ANY OF HIS OTHER SCRIPTS
[2022-11-11 10:43] LABS: Alanine Aminotransferase 16 U/L (0-41); Albumin Level 3.7 g/dL (3.5-5.2); Alkaline Phosphatase 97 U/L (40-130); Anion Gap 18.1 (5-19); Aspartate Amino Transferase 22 U/L (0-40); Blood Urea Nitrogen 10 mg/dL (8-23); Calcium 9.8 mg/dL (8.5-10.5); Carbon Dioxide 27 mmol/L (22-29); Chloride 94 mmol/L (98-107); Globulin 4.6 g/dL (1.3-4.6); Glomerular Filtration Rate 75.2 mL/min (90-130); Glucose 128 mg/dL (65-115); Osmolality Calculated 281 mOsm/kg (285-295); Potassium 4.1 mmol/L (3.5-5.1); Sodium 135 mmol/L (136-145); Total Bilirubin 0.7 mg/dL (0.15-1.2); Total Protein 8.3 g/dL (6.6-8.7)
[2022-11-11] MEDS: dilTIAZem 100 MG in sodium chloride 0.9% (add-van) 100 ML IV (11:25)
[2022-11-11 13:40] LABS: Adenovirus Not Detected (NOT DETECT); Chlamydia Pneumoniae Not Detected (NOT DETECT); Coronavirus 229E,HKU1,NL63,OC4 Not Detected (NOT DETECT); Human Metapneumovirus Not Detected (NOT DETECT); Human Rhinovirus/Enterovirus Not Detected (NOT DETECT); Influenza A Not Detected (NOT DETECT); Influenza A H1 Not Detected (NOT DETECT); Influenza A H1-2009 Not Detected (NOT DETECT); Influenza A H3 Not Detected (NOT DETECT); Influenza B Not Detected (NOT DETECT); Mycoplasma Pneumoniae Not Detected (NOT DETECT); Parainfluenza Virus Type 1 Not Detected (NOT DETECT); Parainfluenza Virus Type 2 Not Detected (NOT DETECT); Parainfluenza Virus Type 3 Not Detected (NOT DETECT); Parainfluenza Virus Type 4 Not Detected (NOT DETECT); Respiratory Syncytial Virus A Not Detected (NOT DETECT); Respiratory Syncytial Virus B Not Detected (NOT DETECT); SARS-COV-2 Not Detected (NOT DETECT)
--- NOTE | 2022-11-11 13:41 | P.HP_ITS ---
Providers/Chief Complaint Chief Complaint: SOB History of Present Illness Gareth Pickering is a 62 year old male with history of noncompliance, oxygen dependent COPD, A-fib, was initially discharged from the hospital for management of A-fib RVR and pneumonia, at discharge she was given Trelegy, DuoNeb inhaler, Eliquis, and he was asked to continue his Cardizem and metoprolol, patient is r eturning back with chief complaint of palpitation and shortness of breath. In the ER he has been diagnosed with A-fib RVR requiring Cardizem drip on arrival his O2 saturation was low 50s he was put on BiPAP right away however ABG showed improvement at the time of my evaluation patient is on 6 L nasal cannula . Patient is still smoking smoking 1 pack/day, drinks alcohol occasionally. He is endorsing subjective fevers, productive cough, yellow sputum production. Wheezing.. He has not noticed any chest pain, diarrhea, vomiting. Review of Systems Const: Reports: fever(s) and chills Eyes: Denies: change in vision ENMT: Denies: throat pain Card: Denies: chest pain Resp: Reports: dyspnea GI: Denies: abdominal pain : Denies: flank pain Musc: Denies: neck pain Skin/Breast: Denies: rash Neuro: Denies: headache(s) Psych: Reports: anxiety Endo: Denies: polyuria Chay/Lymph: Denies: easy bruising All/Imm: Denies: urticaria Medications/Allergies Home Medications Medication Instructions Recorded Confirmed Last Taken Type ipratropium 0.5 mg-albuterol 3 mg 3 ml inhalation QID 03/06/22 11/11/22 Unknown History (2.5 mg base)/3 mL nebulization soln albuterol sulfate 90 mcg/actuation 2 inh inhalation Q8H PRN shortness 10/04/22 11/11/22 Unknown Rx aerosol inhaler of breath or wheezing #8.5 grams apixaban 5 mg (74 tabs) tablets in 5 mg PO BID #74 ea 10/04/22 11/11/22 Unknown Rx a dose pack (Eliquis DVT-PE Treat 30D Start) atorvastatin 40 mg tablet 40 mg PO BEDTIME #60 tabs 10/04/22 11/11/22 1 Month Ago Rx ~09/02/22 azithromycin 250 mg tablet 500 mg PO DAILY #5 tabs 10/04/22 11/11/22 Unknown Rx diltiazem HCl 180 mg capsule,24 180 mg PO QAM #90 caps 10/04/22 11/11/22 1 Month Ago Rx hr,extended release ~09/02/22 fluticasone fur. 100 mcg-umeclid 1 inh inhalation DAILY #60 ea 10/04/22 11/11/22 Unknown Rx 62.5 mcg-vilant 25 mcg inhalat.powder (Trelegy Ellipta) furosemide 40 mg tablet (Lasix) 40 mg PO QAM #60 tabs 10/04/22 11/11/22 1 Month Ago Rx ~09/02/22 methylprednisolone 4 mg tablets in See Rx Instructions PO .COMPLEX 10/04/22 11/11/22 Unknown Rx a dose pack (Medrol (Naeem)) #21 ea metoprolol tartrate 50 mg tablet 100 mg PO BID #120 tabs 10/04/22 11/11/22 1 Month Ago Rx ~09/02/22 see ALL pharmacy com albuterol sulfate 0.63 mg/3 mL 0.63 mg (3 mL) inhalation QID 7 10/06/22 11/11/22 Unknown Rx solution for nebulization days #84 mL albuterol sulfate 90 mcg/actuation 2 inh inhalation Q4H PRN shortness 10/06/22 11/11/22 Unknown Rx aerosol inhaler (ProAir HFA) of breath or wheezing #8.5 grams ciclesonide 80 mcg/actuation 4 inh inhalation Q12H #6.1 grams 10/06/22 11/11/22 Unknown Rx aerosol inhaler (Alvesco) ipratropium 0.5 mg-albuterol 3 mg 3 ml inhalation Q6H PRN shortness 10/06/22 11/11/22 Unknown Rx (2.5 mg base)/3 mL nebulization of breath or wheezing #180 mL soln Allergies Allergy/AdvReac Type Severity Reaction Status Date / Time No Known Allergies Allergy Verified 10/03/22 10:06 PFSH Acute PFSH: Medical History Acute and chronic respiratory failure with hypoxia Acute exacerbation of chronic obstructive airways disease Atrial fibrillation Atrial fibrillation with RVR COPD (chronic obstructive pulmonary disease) Hyperlipidemia Rib deformity Surgical History History of colon surgery Family History Denies family history of Chronic kidney disease (CKD) Social History Smoking and tobacco status: current every day smoker Alcohol intake: current Alcohol intake frequency: holidays/special occasions only Vitals/I&O/Wt Last Vital Signs Temp 97.7 F 11/11/22 10:40 Pulse 119 H 11/11/22 13:30 Resp 29 H 11/11/22 11:30 BP 134/89 11/11/22 13:30 Pulse Ox 93 11/11/22 13:30 O2 Del Method 11/11/22 10:46 O2 Flow Rate 5 11/11/22 10:46 FiO2 50 11/11/22 10:10 11/10/22 11/11/22 11/11/22 22:59 06:59 14:59 Intake Total 9.417 / 9.417 Balance 9.417 / 9.417 Weight last 48 hrs Weight 108.862 kg Physical Exam Narrative: A-fib RVR Patient looks clinically fluid overloaded Abdomen soft Asking for food Nonfocal neuro exam Currently on 6 L No active wheezing at the time of evaluation Blood pressure is stable Agitated and anxious Able to cooperate Able to give me above-mentioned history No conversational dyspnea during my evaluation No active chest pain Variable S1-S2 Data 11/11/22 10:10 11/11/22 10:10 Micro: Microbiology 11/11/22 10:10 Blood Culture - Preliminary Blood SPECIMEN COLLECTED 11/11/22 10:14 Blood Culture - Preliminary Blood SPECIMEN COLLECTED A&P Assessment and plan (1) Afib: (2) COPD exacerbation: (3) Non compliance w medication regimen: (4) Goals of care, counseling/discussion: Plan Paroxysmal A-fib with RVR Wean off Cardizem I will continue his metoprolol and Cardizem Check mag level Continue Eliquis Check D-dimer Patient's compliance with medication is questionable Acute COPD exacerbation Acute hypoxia related to pulmonary vascular congestion DuoNeb Continue Lasix Currently on 6 L Off BiPAP Active smoker Diastolic CHF exacerbation continue Lasix related to afib monitor electrolytes Goals of care discussed with the patient Full code Cardiac diet Noncompliance, patient has been counseled Attestations Medical Necessity Statement*: Less than 2 midnights anticipated Coding Level of Care Code 77814 Diagnoses Afib I48.91 COPD exacerbation J44.1 Non compliance w medication regimen Z91.14 Goals of care, counseling/discussion Z71.89 Time Spent (min) 40
[2022-11-11 14:03] LABS: Results from GEN
[2022-11-11] MEDS: dilTIAZem 100 MG in sodium chloride 0.9% (add-van) 100 ML 15 MG IV (19:03)
[2022-11-11] MEDS: ipratropium-albuterol 3 mL Neb INHALATION (19:41)
[2022-11-11] MEDS: atorvastatin 40 mg Tablet PO (22:02)
[2022-11-11] MEDS: metoprolol tartrate 50 mg Tablet 100 MG PO (22:02)
[2022-11-12] VITALS (20 sets, daily range): BP systolic 91–117; BP diastolic 73–83; PULSE 69–111; RESP 20–29; TEMP 35.7–36.7; O2SAT 91–95
[2022-11-12 00:25] LABS: Glucose Point of Care 186 mg/dL (70-110)
--- NOTE | 2022-11-12 03:04 | PC.NURSE ---
Review of patient prescriptions: Patient last filled Eliquis on 10/04/22. Unknown when he last took eliquis as prescribed. Patient states he was not given a prescription for cardizem from last admission. Cardizem is listed on the discharge instructions from that hospital visit as a continued medicine. Patient states [facility] since moving to [place] and does not have a PCP in [place].
[2022-11-12 03:20] LABS: Add Urine Culture? No; Add Urine Microscopic? YES; Bacteria Urine TRACE /hpf; Bilirubin Urine Neg (Negative); Blood Urine 2+ (Negative); Glucose Urine UA 2+ (Normal); Hyaline Casts Urine 0-4 /lpf; Ketones Urine 1+ (Negative); Leukocyte Esterase Urine Negative (Negative); Mucus Urine 4+ /hpf; Nitrate Urine Negative (Negative); Protein Urine 1+ (Negative); RBC Urine 0-4 /hpf (0-2); Squamous Epithelial Cell Urine 0-4 /hpf (0-5); Urine Appearance Clear (CLEAR); Urine Color Yellow (Yellow); Urobilinogen Urine 1 mg/dL (Negative); WBC Urine 0-4 /hpf (0-5); pH Urine 5 (5-7)
--- NOTE | 2022-11-12 03:41 | PC.NURSE ---
Patient refused to have morning lab/ blood draw done.
[2022-11-12] MEDS: dilTIAZem ER (24HR) 180 mg Capsule PO (05:19)
--- NOTE | 2022-11-12 06:30 | PC.NURSE ---
Patient off heart monitor. Currently refusing to wear.
[2022-11-12] MEDS: ipratropium-albuterol 3 mL Neb INHALATION ×5 (07:30→23:01)
--- NOTE | 2022-11-12 08:58 | CT_ITS ---
WS: [id number] CT CHEST WITHOUT INTRAVENOUS CONTRAST HISTORY: sob TECHNIQUE: Contiguous 5 mm axial imaging performed on the thorax. Coronal and sagittal reformats are submitted. All CT scans at [facility] use at least one of these dose optimization techniques: automated exposure control; mA and/or kV adjustment per patient size (includes targeted exams where dose is matched to clinical indication); or iterative reconstruction. CONTRAST: None DLP: 591.20 mGy.cm COMPARISON: 10/04/2022 and radiograph 11/11/2022 Quality of this examination is significantly compromised by breathing artifact. Patient was unable to follow breathing instructions. Lungs and central airway: Marked pulmonary hyperexpansion. Motion artifact throughout both lungs. The re is interstitial thickening bilaterally but greatest throughout the LEFT lung. Very similar pattern to the prior study of 10/04/2022. Tree-in-bud airspace disease greatest on the LEFT may have progresse d slightly. Mild subpleural nodularity in the LEFT lower lobe. No dense areas of consolidation or lob ar collapse. Pleura: Normal. No pleural effusion. Heart and pericardium: Moderately enlarged heart. No effusion. Mediastinum and nella: There are small mediastinal and hilar lymph nodes. Probably not significantly c hanged since the prior study taking into consideration the motion and noncontrast evaluation. Vessels: No significant atherosclerotic plaque within the aorta. Normal size pulmonary artery. Chest wall and lower neck: No soft tissue masses. Upper abdomen: Small hiatal hernia. Osseous structures: Prior plate and screw fixation lateral LEFT rib fractures. CT/CT chest wo con [id number] IMPRESSION: 1. Significant motion and breathing artifact compromising exam. 2. Continued interstitial thickening and tree-in-bud airspace disease greatest throughout the LEFT lung. Most consistent with pneumonitis and endobronchial p neumonia. No dense consolidation. 3. Moderately enlarged heart. 4. No significant adenopathy identified.
--- NOTE | 2022-11-12 09:00 | ECG_ITS ---
[facility] Test Date: 2022-11-12 Pat Name: Gareth Pickering Department: Room: 112 Gender: Male Manager Proposal: : 1960 Requested By: Constantine Zapata Order Number: [id number] Natalya MD: Sara Giraldo M.D. Measurements Intervals [place] Rate: 107 P: 0 MO: 0 QRS: 76 QRSD: 101 T: 32 QT: 329 QTc: 440 Interpretive Statements ATRIAL FIBRILLATION WITH RAPID VENTRICULAR RESPONSE INCOMPLETE RIGHT BUNDLE BRANCH BLOCK [90+ ms QRS DURATION, TERMINAL R IN V1/V2, 40+ ms S IN I/aVL/V4/V5/V6] NONSPECIFIC T-WAVE ABNORMALITY ABNORMAL RHYTHM ECG Compared to ECG 11/11/2022 10:09:04 T-wave abnormality now present ST (T wave) deviation no longer present Electronically Signed On 11-12-2022 16:45:34 INSPECTOR INTEGRATED CIRCUITS by Sara Giraldo M.D. [id number]
--- NOTE | 2022-11-12 10:40 | ECG_ITS ---
[facility] Test Date: 2022-11-12 Pat Name: Gareth Pickering Department: Room: 112 Gender: Male Application Engineer: : 1960 Requested By: Constantine Zapata Order Number: [id number] Natalya MD: Sara Giraldo M.D. Measurements Intervals [place] Rate: 104 P: 0 [place]: 0 QRS: 70 QRSD: 101 T: 38 QT: 331 QTc: 436 Interpretive Statements ATRIAL FIBRILLATION WITH RAPID VENTRICULAR RESPONSE INCOMPLETE RIGHT BUNDLE BRANCH BLOCK [90+ ms QRS DURATION, TERMINAL R IN V1/V2, 40+ ms S IN I/aVL/V4/V5/V6] ANTEROSEPTAL MYOCARDIAL INFARCTION , PROBABLY RECENT Compared to ECG 11/12/2022 09:22:00 Myocardial infarct finding now present T-wave abnormality no longer presen Electronically Signed On 11-12-2022 17:04:21 EDITOR IN CHIEF NEWSPAPER by Sara Giraldo M.D. [id number]
[2022-11-12] MEDS: metoprolol tartrate 50 mg Tablet 100 MG PO ×2 (10:47→20:32)
[2022-11-12] MEDS: apixaban 5 mg Tablet PO ×2 (10:47→20:32)
[2022-11-12] MEDS: cefTRIAXone 1,000 MG in sodium chloride 0.9% (plus) 50 ML 100 MG IV (10:50)
--- NOTE | 2022-11-12 10:51 | PC.CHAP ---
Pastoral Care Encounter/Spiritual Assessment Type of Contact [] Declined die cast die maker visit [] Patient/Family/Request visit [] Outpatient visit [] Follow-up visit [] Physician referral [] Code/Alert [x] Routine visit [] Staff referral [] Actively dying [] Patient sleeping [] Family support [] [] Out of room [] Palliative care [] [] Receiving care in room [] Pre-surgical visit [] Trauma [] Long length of stay [] ICU visit [] Other: Relational/Emotional Strength [] Patient feels connected with others/family/visitors/staff [] Distress [] Loneliness/isolation [] Abandonment Spirituality of Patient [] Person of Xenia [] Attends Buddhism of their Xenia [] Believes in Prayer [] Reads Bible or Orthodox materials [x] There are Spiritual issues to be addressed Grid Operator Interventions [] Prayer [] Active listening [] Non-anxious presence [] Spiritual/emotional support [] Crisis/trauma care [] Spiritual counseling [] Bereavement support [] Provided bereavement packet [] Provided Bible/devotional materials [] Provided toy/stuffed animal, coloring book to patient or family member [] Provided Communion [] Anointing/Hillister [] Salvation [] Completed spiritual assessment [] Other: Impact on Illness or Injury [] Angry [] Fearful [] Anxious [] Often cries [] Exhaustion [] Unable to work [] Unable to attend mormon [] Unable to walk/stand [] Unable to read [] Unable to drive [] Unable to eat/drink [] Unable to sleep [] Unable to be with family [] Patient intubated [] Other: Summary patient very upset with everyone in hospital sayinf\g his meds were all massed up Time spent with patient
[2022-11-12] MEDS: FUROsemide 10 mg/mL SDV 4mL 40 MG IVP ×2 (10:54→20:34)
[2022-11-12] MEDS: morphine 4 mg/mL SDV 1 mL 2 MG IVP (11:59)
--- NOTE | 2022-11-12 12:05 | P.PN_ITS ---
Subjective Subjective: - Patient was seen this morning -According to nursing staff patient has been very agitated overnight, agitated that he can go to his pulmonary appointment, he declines blood draws, declines taking medications -He is quite upset, he tells me that he was supposed to see pulmonary this morning, and he has waited for the last 2 months, and he has had multiple cancellations in order to see pulmonary however he is not able to see pulmonary because he is here in the hospital -He tells me that on last discharge his medications were not sent in, and he is quite upset that they were not sent in he tells me that he does not want to have blood draws this morning, he does not want to have his medications, -I apologize to patient for the miscommunication, I apologize as he has not received his medications on his last discharge -I have promised him that I will ensure that on discharge he gets all his medications -I discussed with him his hospitalization, he complains of continued shortness of breath -I advised him is likely secondary to fluid overload, possible pneumonia and COPD exacerbation -We will have to do a few more test including a CAT scan, and blood work he has refused blood draws, has refused to take his Lasix but after discussion with patient he is agreeable to have these done -Also he is agreeable to Knight catheter placement, as he has trouble urinating, and trouble getting up to use the bathroom -After extensive discussion with patient he is much more agreeable much more bonnie m, agreeable with plan Vitals/I&O/Wt Last Vital Signs Temp 98.0 F 11/12/22 11:06 Pulse 111 H 11/12/22 11:06 Resp 28 H 11/12/22 11:59 BP 91/75 11/12/22 11:06 Pulse Ox 92 11/12/22 11:06 O2 Del Method 11/12/22 11:06 O2 Flow Rate 6 11/12/22 11:03 FiO2 40 11/12/22 02:13 11/11/22 11/12/22 11/12/22 22:59 06:59 14:59 Intake Total 757.00 / 509.114 3906.5 / 2632.250 480 / 480 Output Total 600 / 600 Balance 757.00 / 910.801 3301.5 / 2032.250 480 / 480 Weight last 48 hrs Weight 108.862 kg Physical Exam Const: COMMON NORMALS: no acute distress and patient oriented x3 Resp: COMMON NORMALS: normal respiratory effort, No retractions and No use of accessory muscles AUSCULTATION: crackles and wheezes Cardio: COMMON NORMALS: regular rate, regular rhythm, S1 normal heart sound present and S2 normal heart sound present RATE: regular rate RHYTHM: regular rhythm HEART SOUNDS: S1 normal heart sound present and S2 normal heart sound present GI: COMMON NORMALS: Normal to inspection, nondistended, normoactive bowel sounds present and non-tender Extremity: NARRATIVE EXTREMITY EXAM: 1+ pitting edema Neuro: COMMON NORMALS: patient oriented x3 Psych: COMMON NORMALS: mental status grossly normal Data 11/11/22 10:10 11/11/22 10:10 Micro: Microbiology 11/12/22 03:05 Legionella Urinary Antigen - Final Urine,Voided Bacterial Antigens - Final 11/11/22 10:14 Blood Culture - Preliminary Blood NEGATIVE TO DATE 11/11/22 10:10 Blood Culture - Preliminary Blood NEGATIVE TO DATE A&P Assessment and plan (1) Acute respiratory failure with hypoxia: (2) Acute exacerbation of CHF (congestive heart failure): (3) Diastolic CHF: (4) Pneumonia: (5) Atrial fibrillation with RVR: (6) COPD exacerbation: (7) Non compliance w medication regimen: (8) Goals of care, counseling/discussion: (9) UTI (urinary tract infection): (10) Elevated blood sugar: Plan Acute hypoxic respiratory failure -Secondary to COPD, pneumonia, A-fib with RVR, acute diastolic CHF exacerbation Plan -Continue monitoring in cardiac stepdown unit -Monitor respiratory status closely -Currently in A-fib, continue p.o. Cardizem, continue metoprolol -For COPD exacerbation increase Solu-Medrol to 40 IV every 8 hours -For pneumonia, Rocephin azithromycin -DuoNeb, budesonide -Diastolic CHF exacerbation, with edema, Place Knight catheter, Lasix 40 IV twice daily -Hopefully patient will allow us to do blood work so I can monitor his creatinine, potassium, magnesium -Eliquis for DVT prophylaxis -Full code Pneumonia follow blood cultures, sputum cultures, monitor for fevers Elevated blood sugars -Monitor blood sugars -hgA1c COPD -As above Atrial fibrillation -Continue Metroprolol, Cardizem -Eliquis Diastolic CHF exacerbation -As above UTI -As above Eliquis for DVT prophylaxis Protonix for GI prophylaxis Full code Attestations Medical Necessity Statement*: Patient requires hospitalization for acute hypoxic respiratory failure secondary to COPD, pneumonia, A-fib with RVR, acute diastolic CHF exacerbation Diagnoses Acute respiratory failure with hypoxia J96.01 Acute exacerbation of CHF (congestive heart failure) I50.9 Diastolic CHF I50.30 Pneumonia J18.9 Atrial fibrillation with RVR I48.91 COPD exacerbation J44.1 Non compliance w medication regimen Z91.14 Goals of care, counseling/discussion Z71.89 UTI (urinary tract infection) N39.0 Elevated blood sugar R73.9
[2022-11-12] MEDS: azithromycin 500 MG in sodium chloride 0.9% 250 ML 250 MG IV (12:13)
[2022-11-12 14:06] LABS: Basophils % 0.2 %; Hematocrit 43.7 % (42.0-52.0); Hemoglobin 13.9 g/dL (11.7-16.6); Lymphocytes # 0.4 10^3/uL (0.8-4.8); Lymphocytes % 1.8 %; Mean Corpuscular HGB Conc 31.8 g/dL (30.0-36.0); Mean Corpuscular Hemoglobin 28.9 pg (28.0-34.0); Mean Corpuscular Volume 90.9 fl (80-94); Mean Platelet Volume 9.2 fL (7.4-10.4); Monocytes # 0.7 10^3/uL (0.2-0.9); Monocytes % 3.3 %; Neutrophils # 19.14 10^3/uL (1.8-7.7); Neutrophils % 93.9 %; Nucleated Red Blood Cells % 0 %; Platelet Count 462 10^3/cmm (130-400); Red Blood Count 4.81 10^6/uL (4.1-5.3); Red Cell Distribution Width 14.6 % (12.1-15.1); White Blood Count 20.4 10^3/uL (4.0-10.0)
[2022-11-12 14:17] LABS: Estmated Average Glucose 120; Hemoglobin A1C 5.8 % (4.0-6.0)
[2022-11-12 14:25] LABS: Troponin(5th) Baseline 10 ng/L (0-15)
[2022-11-12 14:26] LABS: Anion Gap 16.3 (5-19); Blood Urea Nitrogen 19 mg/dL (8-23); C Reactive Protein 166.9 mg/L (0.0-4.9); Calcium 9.9 mg/dL (8.5-10.5); Carbon Dioxide 30 mmol/L (22-29); Chloride 98 mmol/L (98-107); Glomerular Filtration Rate 97.3 mL/min (90-130); Glucose 155 mg/dL (65-115); Osmolality Calculated 295 mOsm/kg (285-295); Potassium 4.3 mmol/L (3.5-5.1); Sodium 140 mmol/L (136-145)
--- NOTE | 2022-11-12 15:00 | ECG_ITS ---
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 Measurements Intervals [place] Rate: 86 P: 0 CA: 0 QRS: 59 QRSD: 106 T: 41 QT: 356 QTc: 428 Interpretive Statements ATRIAL FIBRILLATION INCOMPLETE RIGHT BUNDLE BRANCH BLOCK [90+ ms QRS DURATION, TERMINAL R IN V1/V2, 40+ ms S IN I/aVL/V4/V5/V6] ABNORMAL RHYTHM ECG Compared to ECG 11/12/2022 10:40:44 Myocardial infarct finding no longer present Electronically Signed On 11-12-2022 16:52:23 [employer]ING [employer]ES by Sara Giraldo M.D. [id number]
[2022-11-12 16:40] LABS: Troponin 5 2HR 10.16 ng/L (0-15)
[2022-11-12 17:17] LABS: Troponin 5 2HR Delta 0.16 ABS# (0-10)
[2022-11-12 17:41] LABS: Glucose Point of Care 270 mg/dL (70-110)
[2022-11-12] MEDS: budesonide 0.5 mg/2 mL Neb INHALATION (19:15)
[2022-11-12 19:54] LABS: Troponin 5 6HR 9.13 ng/L (0-15)
[2022-11-12] MEDS: atorvastatin 40 mg Tablet PO (20:32)
[2022-11-12 21:13] LABS: Troponin 5 6HR Delta -0.87 ng/L (0-12)
[2022-11-12 21:16] LABS: Glucose Point of Care 159 mg/dL (70-110)
[2022-11-13] VITALS (17 sets, daily range): BP systolic 99–123; BP diastolic 56–86; PULSE 86–108; RESP 18–25; TEMP 35.9–37; O2SAT 90–95
[2022-11-13] MEDS: ipratropium-albuterol 3 mL Neb INHALATION ×5 (03:03→23:30)
[2022-11-13 03:28] LABS: Basophils # 0.1 10^3/uL (0.0-0.1); Basophils % 0.2 %; Hematocrit 40.8 % (42.0-52.0); Hemoglobin 13.1 g/dL (11.7-16.6); Lymphocytes # 0.5 10^3/uL (0.8-4.8); Lymphocytes % 1.9 %; Mean Corpuscular HGB Conc 32.1 g/dL (30.0-36.0); Mean Corpuscular Hemoglobin 28.9 pg (28.0-34.0); Mean Corpuscular Volume 90.1 fl (80-94); Mean Platelet Volume 9.4 fL (7.4-10.4); Monocytes # 0.6 10^3/uL (0.2-0.9); Monocytes % 2.4 %; Neutrophils # 21.93 10^3/uL (1.8-7.7); Neutrophils % 94.6 %; Nucleated Red Blood Cells % 0 %; Platelet Count 462 10^3/cmm (130-400); Red Blood Count 4.53 10^6/uL (4.1-5.3); Red Cell Distribution Width 14.6 % (12.1-15.1); White Blood Count 23.2 10^3/uL (4.0-10.0)
[2022-11-13 03:57] LABS: Anion Gap 11.3 (5-19); Blood Urea Nitrogen 23 mg/dL (8-23); Calcium 9.7 mg/dL (8.5-10.5); Carbon Dioxide 33 mmol/L (22-29); Chloride 93 mmol/L (98-107); Glomerular Filtration Rate 75.2 mL/min (90-130); Glucose 184 mg/dL (65-115); Magnesium 2.1 mg/dL (1.7-2.3); NT Pro B Type Natriuretic Pept 837 pg/mL (0-125); Osmolality Calculated 284 mOsm/kg (285-295); Potassium 4.3 mmol/L (3.5-5.1); Sodium 133 mmol/L (136-145)
[2022-11-13 04:56] LABS: NT Pro B Type Natriuretic Pept 1277 pg/mL (0-125); Procalcitonin 0.16 ng/mL (0-0.5)
[2022-11-13 05:07] LABS: C Reactive Protein 165.2 mg/L (0.0-4.9)
[2022-11-13] MEDS: dilTIAZem ER (24HR) 180 mg Capsule PO (06:01)
[2022-11-13 06:29] LABS: Glucose Point of Care 139 mg/dL (70-110)
[2022-11-13] MEDS: metOLazone 5 MG Tablet PO (08:46)
[2022-11-13] MEDS: metoprolol tartrate 50 mg Tablet 100 MG PO ×2 (08:46→20:50)
[2022-11-13] MEDS: apixaban 5 mg Tablet PO ×2 (08:50→20:49)
[2022-11-13] MEDS: FUROsemide 10 mg/mL SDV 4mL 40 MG IVP ×2 (08:52→20:51)
[2022-11-13] MEDS: cefTRIAXone 1,000 MG in sodium chloride 0.9% (plus) 50 ML 100 MG IV (08:52)
[2022-11-13] MEDS: budesonide 0.5 mg/2 mL Neb INHALATION ×2 (09:10→21:25)
[2022-11-13] MEDS: azithromycin 500 MG in sodium chloride 0.9% 250 ML 250 MG IV (09:53)
--- NOTE | 2022-11-13 11:24 | PC.NURSE ---
pt has been very angry..cursing at staff since change of shift.his iv pump was alarming for different issues (upstream occlusion,downstream occlusion) and this made pt very upset.iv drsg site changed...and it was noted that catheter was kinked.pt needs a new iv placed and he insists on an ultasound guided iv placement.he also wants pain medication prior to insertion.hydrocodone 5/325 mg ordered and pt refused this.2 mg mso4 im ordered and pt refused this... that aint gonna do shit for me .then pt refused the rn who came from er to insert iv. i had him before and he's too rough...i want the nurse from icu that did it yesterday .that rn is not working today.dr norton visited pt again.pt states i want 10mg hydrocodone .this was ordered.will try a different nurse for u/s iv.hopefully pt will agree to this.
[2022-11-13] MEDS: HYDROcodone-acetaminophen 10-325 mg Tablet 1 TAB PO (11:48)
[2022-11-13 12:07] LABS: Glucose Point of Care 153 mg/dL (70-110)
--- NOTE | 2022-11-13 13:38 | PC.NURSE ---
solrn from icu successfully inserted a # 18 iv catheter into right upper arm using ultrasound.ivpb began and approx 1/2 hour into infusion,pt began complaining of severe pain at iv site.no s/sxs infiltration noted.iv with excellent blood return,and flushes easily.pt would not allow ivpb to be restarted.requests another iv to be inserted.icu called for assistance
--- NOTE | 2022-11-13 14:28 | PC.NURSE ---
duane,rn from icu came to insert 2nd iv using ultrasound.she concurs with this rn that 1st iv placed earlier today is viable with good blood return.she took off coban and retaped iv to further secure...started ivpb...and pt stated that site no longer hurts.
--- NOTE | 2022-11-13 14:29 | P.PN_ITS ---
Subjective Subjective: - Patient was examined multiple times throughout the morning -In the morning he was complaining of shortness of breath, wheezing, lack of energy -operating room registered nurse patient was calm, he was collected, complaining of shortness of breath, continued wheezing, agreeable to continue hospitalization with diuretic therapy antibiotic therapy -Very early in the morning he became agitated, he removed his IV -He refused any more IVs -I again reexamined patient apologized to him for the difficulties, he does not want any ER nurse to do an IV he only wants an ICU nurse -He is in so much pain from the IV insertion he wants 10 of hydrocodone -I advised him that I am doing the best to comply with his wishes, however this goes both ways, he has to follow my instructions -He voiced understanding, I had a ICU nurse come in place an IV for's, he took 10 of hydrocodone -He tells me that he does not want an IV in his hand, or in his elbow side, he only wants in his forearm -However later on, he started complaining that he wanted IV to be moved to a different site Vitals/I&O/Wt Last Vital Signs Temp 97.8 F 11/13/22 11:45 Pulse 88 11/13/22 11:45 Resp 23 H 11/13/22 11:45 BP 106/77 11/13/22 11:45 Pulse Ox 91 11/13/22 11:45 O2 Del Method 11/13/22 11:45 O2 Flow Rate 4 11/13/22 11:45 FiO2 40 11/13/22 08:00 11/12/22 11/13/22 11/13/22 22:59 06:59 14:59 Intake Total 1980 / 2940 480 / 3420 410 / 410 Output Total 1000 / 1700 1400 / 3100 1600 / 1600 Balance 980 / 1240 -920 / 320 -1190 / -1190 Physical Exam Const: COMMON NORMALS: no acute distress and patient oriented x3 OTHER: Patient becomes easily agitated, angry Resp: COMMON NORMALS: normal respiratory effort, No retractions and No use of accessory muscles AUSCULTATION: wheezes Cardio: COMMON NORMALS: regular rate, regular rhythm, S1 normal heart sound present and S2 normal heart sound present RATE: regular rate RHYTHM: regular rhythm HEART SOUNDS: S1 normal heart sound present and S2 normal heart sound present GI: COMMON NORMALS: Normal to inspection, nondistended, normoactive bowel sounds present and non-tender Extremity: COMMON NORMALS: no pedal edema Neuro: COMMON NORMALS: patient oriented x3 Psych: COMMON NORMALS: mental status grossly normal Urinary Catheter Management: Knight: Cath Placed During This Visit: yes Reason for Continuing Indwelling Catheter: Accurate Measurement of Urinary Output in Critically Ill Patients Urinary Catheter Date of Insertion: 11/12/22 Urinary Catheter Time of Insertion: 11:00 Data 11/13/22 02:58 11/13/22 02:58 Micro: Microbiology 11/11/22 10:10 Blood Culture - Preliminary Blood 11/11/22 10:23 Gram Stain - Final Sputum - Expectorated Sputum Sputum Culture - Preliminary 11/12/22 03:05 Legionella Urinary Antigen - Final Urine,Voided Bacterial Antigens - Final 11/11/22 10:14 Blood Culture - Preliminary Blood NEGATIVE TO DATE A&P Assessment and plan (1) Acute respiratory failure with hypoxia: (2) Acute exacerbation of CHF (congestive heart failure): (3) Diastolic CHF: (4) Pneumonia: (5) Atrial fibrillation with RVR: (6) COPD exacerbation: (7) Non compliance w medication regimen: (8) Goals of care, counseling/discussion: (9) UTI (urinary tract infection): (10) Elevated blood sugar: Plan Acute hypoxic respiratory failure -Secondary to COPD, pneumonia, A-fib with RVR, acute diastolic CHF exacerbation Plan -Continue monitoring in cardiac stepdown unit -Monitor respiratory status closely -Currently in A-fib, continue p.o. Cardizem, continue metoprolol -For COPD exacerbation increase Solu-Medrol to 40 IV every 8 hours -For pneumonia, Rocephin and azithromycin -DuoNeb, budesonide -Diastolic CHF exacerbation, with edema, continue Knight catheter, Lasix 40 IV twice daily -Monitor creatinine monitor potassium monitor electrolytes -Eliquis for DVT prophylaxis -Full code Pneumonia follow blood cultures, sputum cultures, monitor for fevers Elevated blood sugars -Monitor blood sugars COPD -As above Atrial fibrillation -Continue Metroprolol, Cardizem -Eliquis Diastolic CHF exacerbation -As above UTI -As above Eliquis for DVT prophylaxis Protonix for GI prophylaxis Full code Attestations Medical Necessity Statement*: Patient requires hospitalization for acute hypoxic respiratory failure, COPD CHF Coding Level of Care Code 35421 Moderate Time for a total of 40 minutes, includes reviewing past or interval history, examining/interviewing patient, placing orders, counseling patient/family/other support, discussing plan of care with staff, documenting encounter and coordinating care Diagnoses Acute respiratory failure with hypoxia J96.01 Acute exacerbation of CHF (congestive heart failure) I50.9 Diastolic CHF I50.30 Pneumonia J18.9 Atrial fibrillation with RVR I48.91 COPD exacerbation J44.1 Non compliance w medication regimen Z91.14 Goals of care, counseling/discussion Z71.89 UTI (urinary tract infection) N39.0 Elevated blood sugar R73.9
--- NOTE | 2022-11-13 16:34 | PC.NURSE ---
pt requested a sandwich at approx 1500.this was provided.at approx 1600,pt requested another sandwich.this rn was in a procedure and could not obtain sandwich immediately.pt pushed call light shortly after request and screamed at staff.. give me a fucking sandwich! .sandwich provided.
[2022-11-13 17:05] LABS: Glucose Point of Care 151 mg/dL (70-110)
[2022-11-13] MEDS: atorvastatin 40 mg Tablet PO (20:49)
[2022-11-13 21:15] LABS: Glucose Point of Care 175 mg/dL (70-110)
[2022-11-14] VITALS (18 sets, daily range): BP systolic 107–121; BP diastolic 50–83; PULSE 83–115; RESP 16–24; TEMP 36.4–36.7; O2SAT 2–93
[2022-11-14] MEDS: ipratropium-albuterol 3 mL Neb INHALATION ×6 (03:09→23:30)
[2022-11-14] MEDS: dilTIAZem ER (24HR) 180 mg Capsule PO (05:34)
[2022-11-14 06:38] LABS: Glucose Point of Care 176 mg/dL (70-110)
[2022-11-14] MEDS: budesonide 0.5 mg/2 mL Neb INHALATION ×2 (08:01→19:14)
[2022-11-14] MEDS: apixaban 5 mg Tablet PO ×2 (09:33→19:38)
[2022-11-14] MEDS: FUROsemide 10 mg/mL SDV 4mL 40 MG IVP (09:33)
[2022-11-14] MEDS: metoprolol tartrate 50 mg Tablet 100 MG PO ×2 (09:33→19:37)
--- NOTE | 2022-11-14 09:59 | PC.NURSE ---
right upper arm iv flushes but does not have a blood return.no swelling noted at or above site.when i started zithromax,pt c/o severe burning pain in right upper arm, and demanded that iv be taken out.states wants meds orally or intramuscularly..and stated he does not want anymore iv's or lab draws.dr norton notified.
[2022-11-14] MEDS: levoFLOXacin 750 mg Tablet PO (10:46)
[2022-11-14] MEDS: potassium chloride ER 20 mEq Tablet 40 MEQ PO (10:46)
[2022-11-14] MEDS: metOLazone 5 MG Tablet PO (10:46)
[2022-11-14 12:02] LABS: Glucose Point of Care 130 mg/dL (70-110)
--- NOTE | 2022-11-14 14:05 | PM.PN ---
Subjective Subjective: - Patient was seen early this morning, -He is upset, because his IV could not draw this morning, and he does not want to have any more sticks -His IV is not working and he does not want to have it replaced, I was told by nursing staff he got really upset and removed his IV and did not want it to be replaced -I discussed my concerns that with all the medications that were given to him we have to monitor his creatinine and his potassium which are social with increased morbidity and mortality, nursing staff were present during this discussion he voiced understanding, all questions answered, but tells me that he is only going to have his IV replaced by specific nurse that has not here today -I discussed that we will try to give him his IV doses this morning, if not we will switch him to p.o. hopefully we can try to draw his blood later on this afternoon, he is a bit more agreeable, but does become upset -I did advise him that with hypokalemia, acute renal failure, and additional electrolyte abnormalities they carry a high morbidity and mortality rate if they are not monitor especially with the medications he is on however after discussing the risks and benefits, he does not want to have anymore blood draws this morning we will retry his evening -In addition as his IV is gone bad I have switched him to p.o. medications, he still has some wheezing on exam some shortness of breath but overall doing better -I have encouraged him to ambulate, will remove Knight catheter tomorrow morning Vitals/I&O/Wt Last Vital Signs Temp 97.8 F 11/14/22 12:00 Pulse 85 11/14/22 12:00 Resp 19 H 11/14/22 12:00 BP 108/73 11/14/22 12:00 Pulse Ox 91 11/14/22 12:00 O2 Del Method 11/14/22 12:00 O2 Flow Rate 5 11/14/22 11:06 FiO2 40 11/14/22 08:00 11/13/22 11/14/22 11/14/22 22:59 06:59 14:59 Intake Total 1190 / 1850 1840 / 3690 360 / 360 Output Total 1999 1650 / 6075 Balance -810 / -2575 190 / -2385 360 / 360 Physical Exam Const: COMMON NORMALS: no acute distress and patient oriented x3 Resp: COMMON NORMALS: normal respiratory effort, No retractions, No use of accessory muscles and clear to auscultation bilaterally AUSCULTATION: clear to auscultation bilaterally Cardio: COMMON NORMALS: regular rate, regular rhythm, S1 normal heart sound present and S2 normal heart sound present RATE: regular rate RHYTHM: regular rhythm HEART SOUNDS: S1 normal heart sound present and S2 normal heart sound present GI: COMMON NORMALS: Normal to inspection, nondistended, normoactive bowel sounds present and non-tender Extremity: COMMON NORMALS: no pedal edema Neuro: COMMON NORMALS: patient oriented x3 Psych: COMMON NORMALS: mental status grossly normal Urinary Catheter Management: Knight: Cath Placed During This Visit: yes Reason for Continuing Indwelling Catheter: Accurate Measurement of Urinary Output in Critically Ill Patients Urinary Catheter Date of Insertion: 11/12/22 Urinary Catheter Time of Insertion: 11:00 Data 11/13/22 02:58 11/13/22 02:58 Micro: Microbiology 11/13/22 06:00 MRSA Culture - Final Nose 11/11/22 10:10 Blood Culture - Preliminary Blood Staphylococcus sp coag neg 11/11/22 10:23 Gram Stain - Final Sputum - Expectorated Sputum Sputum Culture - Final Haemophilus haemolyticus A&P Assessment and plan (1) Haemophilus infection: (2) Acute respiratory failure with hypoxia: (3) Acute exacerbation of CHF (congestive heart failure): (4) Diastolic CHF: (5) Pneumonia: (6) Atrial fibrillation with RVR: (7) COPD exacerbation: (8) Non compliance w medication regimen: (9) Goals of care, counseling/discussion: (10) UTI (urinary tract infection): (11) Elevated blood sugar: Plan Acute hypoxic respiratory failure -Secondary to COPD, pneumonia, A-fib with RVR, acute diastolic CHF exacerbation Plan -Continue monitoring in cardiac stepdown unit -Monitor respiratory status closely -Currently in A-fib, rate controlled continue p.o. Cardizem, continue metoprolol -For COPD exacerbation, switch to prednisone 40 twice daily -For pneumonia, switch to Levaquin 750 mg once daily -DuoNeb, budesonide -Diastolic CHF exacerbation, with edema, continue Knight catheter, switch to Lasix 40 p.o. twice daily 1 dose metolazone -Monitor creatinine monitor potassium monitor electrolytes -Eliquis for DVT prophylaxis -Full code Haemophilus infection, Pneumonia follow blood cultures, sputum cultures, monitor for fevers Elevated blood sugars -Monitor blood sugars COPD -As above Atrial fibrillation -Continue Metroprolol, Cardizem -Eliquis Diastolic CHF exacerbation -As above UTI -As above Eliquis for DVT prophylaxis Protonix for GI prophylaxis Full code Attestations Medical Necessity Statement*: Patient requires hospitalization for acute hypoxic respiratory failure secondary to COPD, CHF, A-fib Diagnoses Haemophilus infection A49.2 Acute respiratory failure with hypoxia J96.01 Acute exacerbation of CHF (congestive heart failure) I50.9 Diastolic CHF I50.30 Pneumonia J18.9 Atrial fibrillation with RVR I48.91 COPD exacerbation J44.1 Non compliance w medication regimen Z91.14 Goals of care, counseling/discussion Z71.89 UTI (urinary tract infection) N39.0 Elevated blood sugar R73.9
--- NOTE | 2022-11-14 16:12 | PC.NURSE ---
This nurse emptied florence bag of urine. Pt stated that it should have been changed along time ago, nurse apologized and assured the pt that the bag didn't overflow. Pt stated that this feature writer was fat and lazy and didn't know how to do her fucking job ! This nurse stated to the pt that I didn't appreciate the pt's tone, The pt then stated for me to Get out of his Fucking Room ! This nurse exited the room, while the pt was yelling cuss words.
[2022-11-14] MEDS: FUROsemide 40 mg Tablet PO (16:16)
--- NOTE | 2022-11-14 17:43 | PC.NURSE ---
at approx 1500 pt put call light on and stated if you lazy bitches read my chart,you would know that my doctor wants me up and walking in the halls.i thought the nightshift was bad,but this shift is full of a bunch of clowns! .this rn said i will help you.we walked in the [place] approx 100 feet with oxygen.o2 sat 88-89%.when reached room,heart rate in 140's (afib).it came back down w/i minutes,but elevated again to 130's when pt became irate again.... lazy bitches .
--- NOTE | 2022-11-14 18:54 | PC.NURSE ---
Skiver Hand called down to assist in lab draw via IV guided ultrasound. RN explained procedure and verified patient was willing to proceed with law draw. Pt yelled as stated as long as you know what you are fucking doing, and not an idiot . RN exited room stating she would let patient finish dinner and then return. After gathering supplies RN returned to room and stated that she would first look before sticking for lab draw, pt became very angry. Started screaming at top of lungs and called marine underwriter a stupid fucking cunt and to get out of his room. RN verbalized that he needs to lower voice and not use this type of verbiage towards marine underwriter, or towards other staff. That staff is just trying to help pt and follow orders that have been placed by patient's dr following care. Patient then states to get the fuck out, and that he does not want lab draws . Skiver Hand notified security of patient escalation. And notified primary RN as well as Dr Zapata.
--- NOTE | 2022-11-14 18:55 | PC.NURSE ---
Pt stated that he doesn't want that Ochoa Public Address Servicer to come back in his room! Staff stated to the pt that she would try to accommodate his wishes. Security was near by the room and heard the pt say, ochoa several times, so the guard entered the room and asked if everything was going okay. Pt stated are you here to take me away ? Security was polite and encouraged the pt to please refrain from using fowl language.
--- NOTE | 2022-11-14 19:18 | PC.NURSE ---
pt asleep at 1800 med pass...and at bedside rounds at change of shift.nightshift will give 1800 prednisone when pt awakens
[2022-11-14] MEDS: predniSONE 20 mg Tablet 40 MG PO (19:37)
[2022-11-14] MEDS: atorvastatin 40 mg Tablet PO (19:38)
[2022-11-14 20:57] LABS: Glucose Point of Care 172 mg/dL (70-110)
[2022-11-14] MEDS: alum-mag-hydroxide-sime 30 mL UDC PO (23:44)
[2022-11-15] VITALS (9 sets, daily range): BP systolic 91–122; BP diastolic 61–98; PULSE 87–111; RESP 20; TEMP 36.3–36.6; O2SAT 83–95
[2022-11-15] MEDS: ipratropium-albuterol 3 mL Neb INHALATION (04:20)
[2022-11-15] MEDS: dilTIAZem ER (24HR) 180 mg Capsule PO (05:36)
[2022-11-15 06:17] LABS: Glucose Point of Care 122 mg/dL (70-110)
[2022-11-15] MEDS: potassium chloride ER 20 mEq Tablet 40 MEQ PO (08:33)
[2022-11-15] MEDS: apixaban 5 mg Tablet PO (08:33)
[2022-11-15] MEDS: predniSONE 20 mg Tablet 40 MG PO (08:33)
[2022-11-15] MEDS: metoprolol tartrate 50 mg Tablet 100 MG PO (08:34)
[2022-11-15] MEDS: FUROsemide 40 mg Tablet PO (08:35)
--- NOTE | 2022-11-15 08:48 | PC.NURSE ---
Pt's florence removed with 500mls in florence bag. Pt telling inappropriate jokes to this nurse in which he was told that is not appropriate. Pt cont. to refuse lab draws.
[2022-11-15] MEDS: budesonide 0.5 mg/2 mL Neb INHALATION (09:09)
[2022-11-15] MEDS: levoFLOXacin 750 mg Tablet PO (10:44)
[2022-11-15 11:23] LABS: Glucose Point of Care 137 mg/dL (70-110)
--- NOTE | 2022-11-15 12:23 | P.DS_ITS ---
Discharge Providers Date of Admission: 11/12/22 12:05 Date of Discharge: November 15, 2022 Attending Provider at Admission: Yasmine Renteria MD Attending Provider at Discharge: Constantine Zapata MD Diagnoses at Discharge Discharge Diagnosis (1) Haemophilus infection: Status: Acute (2) Acute respiratory failure with hypoxia: Status: Acute (3) Acute exacerbation of CHF (congestive heart failure): Status: Acute (4) Diastolic CHF: Status: Acute (5) Pneumonia: Status: Acute (6) Atrial fibrillation with RVR: Status: Acute (7) COPD exacerbation: Status: Acute (8) Non compliance w medication regimen: Status: Acute (9) Goals of care, counseling/discussion: Status: Acute (10) UTI (urinary tract infection): Status: Acute (11) Elevated blood sugar: Status: Acute Reason for Visit Reason for Visit: SOB Hospital Course Hospital Course Gareth Pickering is a 62 year old male with history of noncompliance, oxygen dependent COPD, A-fib, was initially discharged from the hospital for management of A-fib RVR and pneumonia, at discharge she was given Trelegy, DuoNeb inhaler, Eliquis, and he was asked to continue his Cardizem and metoprolol, patient is returning back with chief complaint of palpitation and shortness of breath.? In the ER he has been diagnosed with A-fib RVR requiring Cardizem drip on arrival his O2 saturation was low 50s he was put on BiPAP right away however ABG showed improvement at the time of my evaluation patient is on 6 L nasal cannula .? Patient is still smoking smoking 1 pack/day, drinks alcohol occasionally.? He is endorsing subjective fevers, productive cough, yellow sputum production.? Wheezing..? He has not noticed any chest pain, diarrhea, vomiting. Patient was admitted to [facility] for acute hypoxic respiratory failure, for COPD, A-fib, pneumonia, fluid overload For his COPD, received nebulizer treatments as inpatient steroid therapy overall clinically improved, discharged on prednisone taper For his A-fib with RVR, managed with Cardizem drip, transition to p.o. Cardizem, metoprolol discharged on p.o. Cardizem 180 once daily [place] 100 twice daily with close follow-up with primary care as outpatient For her pneumonia, culture showed haemophilus, monitored initially with broad- spectrum antibiotic therapy discharged on Levaquin For fluid overload diuresed over 15 L, clinically improved discharged on Lasix therapy with prednisone therapy Throughout patient's hospitalization, patient was quite difficult in managing, as he would not allow blood draws, he will rip out his IVs, and want them to be replaced by specific nurses, with only 1 specific nurses to do blood draws, frequently get agitated with me and nursing staff. I was able to redirect him, and get him to be agreeable to follow medical therapy. However 48 hours before discharge, he would refuse any blood draws, so I do not know what his creatinine, I do not know what his potassium is, I do not know what his hemoglobin is. And I was frankly honest with the patient, as I do not know his lab values, specifically the creatinine or potassium I do not know what his kidney function is after diuresis. He could be in kidney failure, he could be hypokalemic or hypokalemic and I would not know. I discussed the morbidity or mortality associated with not complying with medical instructions, not allowing me to monitor his electrolytes, his hemoglobin and such. However he continued to refuse, he would only want specific nurses to do blood draws and those nurses were not working at that time. I again discussed the morbidity and mortality, risk of arrhythmia, risk of renal failure, risk of adverse cardiac event he voiced understanding, all questions are, declined for now. Hopefully patient will be willing to recheck his hemoglobin, his electrolytes, his creatinine through outpatient physician. I have him following up with primary care as outpatient. Physical Exam Const: COMMON NORMALS: no acute distress and patient oriented x3 Resp: COMMON NORMALS: normal respiratory effort, No retractions, No use of accessory muscles and clear to auscultation bilaterally AUSCULTATION: clear to auscultation bilaterally Cardio: COMMON NORMALS: regular rate, regular rhythm, S1 normal heart sound present and S2 normal heart sound present RATE: regular rate RHYTHM: regular rhythm HEART SOUNDS: S1 normal heart sound present and S2 normal hea rt sound present GI: COMMON NORMALS: Normal to inspection, nondistended, normoactive bowel sounds present and non-tender Extremity: COMMON NORMALS: no pedal edema Neuro: COMMON NORMALS: patient oriented x3 Psych: COMMON NORMALS: mental status grossly normal Urinary Catheter Management: Knight: Cath Placed During This Visit: yes Reason for Continuing Indwelling Catheter: Accurate Measurement of Urinary Output in Critically Ill Patients Urinary Catheter Date of Insertion: 11/12/22 Urinary Catheter Time of Insertion: 11:00 Discharge Data Studies Completed and Pending Completed Studies During Hospitalization Category Date Time Status CT chest wo con [id number] Routine Cat Scan 11/12/22 08:58 Completed XR chest 1V portable [id number] Stat Exams 11/11/22 09:52 Completed Pending at discharge Category Date Time Status Basic Metabolic Panel AM LABS Lab 11/14/22 04:00 Ordered Basic Metabolic Panel AM LABS Lab 11/15/22 04:00 Ordered Blood Culture AM LABS Lab 11/14/22 04:00 Ordered Blood Culture Stat Lab 11/11/22 10:10 Results Complete Blood Count w/Auto AM LABS Lab 11/14/22 04:00 Ordered Complete Blood Count w/Auto AM LABS Lab 11/15/22 04:00 Ordered Magnesium AM LABS Lab 11/15/22 04:00 Ordered Magnesium Routine Lab 11/14/22 04:00 Ordered NT Pro B Type Natriuretic Pept QAM Lab 11/14/22 04:00 Ordered NT Pro B Type Natriuretic Pept QAM Lab 11/15/22 04:00 Ordered Radiology Impressions Chest X-Ray 11/11/22 09:52 Impression: Mild cardiomegaly with minimal pulmonary vascular congestion. Chest CT 11/12/22 08:58 IMPRESSION: 1. Significant motion and breathing artifact compromising exam. 2. Continued interstitial thickening and tree-in-bud airspace disease greatest throughout the LEFT lung. Most consistent with pneumonitis and endobronchial pneumonia. No dense consolidation. 3. Moderately enlarged heart. 4. No significant adenopathy identified. Laboratory Results WBC 23.2 10^3/uL (4.0-10.0) H 11/13/22 02:58 RBC 4.53 10^6/uL (4.1-5.3) 11/13/22 02:58 Hgb 13.1 g/dL (11.7-16.6) 11/13/22 02:58 Hct 40.8 % (42.0-52.0) L 11/13/22 02:58 MCV 90.1 fl (80-94) 11/13/22 02:58 MCH 28.9 pg (28.0-34.0) 11/13/22 02:58 MCHC 32.1 g/dL (30.0-36.0) 11/13/22 02:58 RDW 14.6 % (12.1-15.1) 11/13/22 02:58 Plt Count 462 10^3/cmm (130-400) H 11/13/22 02:58 MPV 9.4 fL (7.4-10.4) 11/13/22 02:58 Neut % (Auto) 94.6 % 11/13/22 02:58 Lymph % (Auto) 1.9 % 11/13/22 02:58 [place] % (Auto) 2.4 % 11/13/22 02:58 Eos % (Auto) 0.0 % 11/13/22 02:58 Baso % (Auto) 0.2 % 11/13/22 02:58 Neut # (Auto) 21.93 10^3/uL (1.8-7.7) H 11/13/22 02:58 Lymph # (Auto) 0.5 10^3/uL (0.8-4.8) L 11/13/22 02:58 [place] # (Auto) 0.6 10^3/uL (0.2-0.9) 11/13/22 02:58 Eos # (Auto) 0.0 10^3/uL (0.0-0.8) 11/13/22 02:58 Baso # (Auto) 0.1 10^3/uL (0.0-0.1) 11/13/22 02:58 Nucleated RBC % (auto) 0 % 11/13/22 02:58 Nucleated RBCs # 0.0 /100WBC 11/13/22 02:58 Specimen Type Arterial 11/11/22 09:51 Sample Site Radial, right 11/11/22 09:51 ABG pH 7.40 (7.35-7.45) 11/11/22 09:51 ABG pCO2 40.6 mmHg (35-45) 11/11/22 09:51 ABG pO2 146.0 mmHg (80.0-100.0) H 11/11/22 09:51 ABG HCO3 25.2 mmol/L (22-26) 11/11/22 09:51 ABG O2 Saturation 100.0 11/11/22 09:51 ABG Base Excess 0.4 mmol/L (-2.0-2.0) 11/11/22 09:51 Jacob Test Pos 11/11/22 09:51 A-a O2 Gradient 20.3 mmHg (5-10) H 11/11/22 09:51 Hematocrit 46.7 % (42-52) 11/11/22 09:51 Hgb O2 Saturation 98.5 % (95-100) 11/11/22 09:51 Carboxyhemoglobin 1.3 %THgb (0.4-20.1) 11/11/22 09:51 Methemoglobin 0.2 % (0.4-1.5) L 11/11/22 09:51 Total Hemoglobin 15.2 g/dL (14-18) 11/11/22 09:51 Sodium 137.0 mmol/L (131-143) 11/11/22 09:51 Potassium 3.8 mmol/L (3.5-5.0) 11/11/22 09:51 Glucose 141.0 mg/dL (70-115) H 11/11/22 09:51 Ionized Calcium 1.3 mmol/L (1.1-1.4) 11/11/22 09:51 O2 Delivery Device Bipap 11/11/22 09:51 FiO2 50.0 % 11/11/22 09:51 Fans Clerk ID [place] 11/11/22 09:51 Sodium 133 mmol/L (136-145) L 11/13/22 02:58 Potassium 4.3 mmol/L (3.5-5.1) 11/13/22 02:58 Chloride 93 mmol/L (98-107) L 11/13/22 02:58 Carbon Dioxide 33 mmol/L (22-29) H 11/13/22 02:58 Anion Gap 11.3 (5-19) 11/13/22 02:58 BUN 23 mg/dL (8-23) 11/13/22 02:58 Creatinine 1.0 mg/dL (0.7-1.2) 11/13/22 02:58 GFR Calculation 75.2 mL/min (90-130) L 11/13/22 02:58 Glucose 184 mg/dL (65-115) H 11/13/22 02:58 POC Glucose 137 mg/dL (70-110) H 11/15/22 10:51 Estimat Average Glucose 120 11/12/22 13:56 Hemoglobin A1c 5.8 % (4.0-6.0) 11/12/22 13:56 Calculated Osmolality 284 mOsm/kg (285-295) L 11/13/22 02:58 Calcium 9.7 mg/dL (8.5-10.5) 11/13/22 02:58 Magnesium 2.1 mg/dL (1.7-2.3) 11/13/22 02:58 Total Bilirubin 0.7 mg/dL (0.15-1.2) 11/11/22 10:10 AST 22 U/L (0-40) 11/11/22 10:10 ALT 16 U/L (0-41) 11/11/22 10:10 Alkaline Phosphatase 97 U/L (40-130) 11/11/22 10:10 Troponin T Baseline 10 ng/L (0-15) 11/12/22 13:56 Troponin T 120 Minute 10.16 ng/L (0-15) 11/12/22 15:58 Delta Troponin T 0.16 ABS# (0-10) 11/12/22 15:58 Troponin T Hi Sens 6Hr 9.13 ng/L (0-15) 11/12/22 19:22 Troponin T Hi Sens 6Hr Delta -0.87 ng/L (0-12) L 11/12/22 19:22 C-Reactive Protein 165.2 mg/L (0.0-4.9) H 11/12/22 13:56 C-Reactive Protein 166.9 mg/L (0.0-4.9) H 11/12/22 13:56 NT-Pro-B Natriuret Pep 837 pg/mL (0-125) H 11/13/22 02:58 Total Protein 8.3 g/dL (6.6-8.7) 11/11/22 10:10 Albumin 3.7 g/dL (3.5-5.2) 11/11/22 10:10 Globulin 4.6 g/dL (1.3-4.6) 11/11/22 10:10 Procalcitonin 0.16 ng/mL (0-0.5) 11/12/22 13:56 Urine Color Yellow (Yellow) 11/12/22 03:05 Urine Appearance Clear (CLEAR) 11/12/22 03:05 Urine pH 5 (5-7) 11/12/22 03:05 Ur Specific [place] 1.020 (1.005-1.030) 11/12/22 03:05 Urine Protein 1+ (Negative) H 11/12/22 03:05 Urine Glucose (UA) 2+ (Normal) H 11/12/22 03:05 Urine Ketones 1+ (Negative) H 11/12/22 03:05 Urine Blood 2+ (Negative) H 11/12/22 03:05 Urine Nitrate Negative (Negative) 11/12/22 03:05 Urine Bilirubin Neg (Negative) 11/12/22 03:05 Urine Urobilinogen 1 mg/dL (Negative) H 11/12/22 03:05 Ur Leukocyte Esterase Negative (Negative) 11/12/22 03:05 Urine RBC 0-4 /hpf (0-2) H 11/12/22 03:05 Urine WBC 0-4 /hpf (0-5) H 11/12/22 03:05 Ur Squamous Epith Cells 0-4 /hpf (0-5) H 11/12/22 03:05 Amorphous Sediment Not Reportable 11/12/22 03:05 Urine Bacteria Trace /hpf (NONE) 11/12/22 03:05 Hyaline Casts 0-4 /lpf H 11/12/22 03:05 Urine Mucus 4+ /hpf 11/12/22 03:05 Nasal Influ A H1 2009 PCR Not detected (NOT DETECT) 11/11/22 11:46 Coronavirus 229E (PCR) Not detected (NOT DETECT) 11/11/22 11:46 Influenza A (H1) PCR Not detected (NOT DETECT) 11/11/22 11:46 Influenza A (H3) PCR Not detected (NOT DETECT) 11/11/22 11:46 Influenza Type A (PCR) Not detected (NOT DETECT) 11/11/22 11:46 Influenza Type B (PCR) Not detected (NOT DETECT) 11/11/22 11:46 SARS-CoV-2 (PCR) Not detected (NOT DETECT) 11/11/22 11:46 Vitals Last Vital Signs Temp 97.4 F L 11/15/22 04:00 Pulse 89 11/15/22 09:10 Resp 20 H 11/15/22 09:10 BP 122/98 11/15/22 08:00 Pulse Ox 92 11/15/22 09:10 O2 Del Method 11/15/22 09:10 O2 Flow Rate 6 11/15/22 09:10 FiO2 50 11/15/22 08:00 Discharge Plan Discharge Patient Disposition: Home Condition: Stable Prescriptions: New levofloxacin 750 mg Tablet 750 mg PO Q24H 5 Days Qty: 5 0RF Eliquis 5 mg Tablet 5 mg PO BID@0900,2100 30 Days Qty: 60 0RF prednisone 10 mg tablet See Rx Instructions .ROUTE .COMPLEX Qty: 53 0RF Rx Instructions: 4 tabs for 5 days, 3 tabs for 5 days, 2 tabs for 5 days, 1 tablet for 5 days, 0.5tab for 5 days Klor-Con M20 20 mEq tablet,ER particles/crystals 20 meq PO DAILY 30 Days Qty: 30 0RF Continued ipratropium-albuterol 0.5 mg-3 mg(2.5 mg base)/3 mL solution for nebulization 3 ml inhalation Q6H PRN (Reason: shortness of breath or wheezing) 30 Days Qty: 180 0RF diltiazem HCl 180 mg Capsule,Extended Release 24 Hr 180 mg PO QAM Qty: 90 3RF metoprolol tartrate 50 mg Tablet 100 mg PO BID 30 Days Qty: 120 2RF albuterol sulfate 90 mcg/actuation HFA aerosol inhaler 2 inh inhalation Q8H PRN (Reason: shortness of breath or wheezing) Qty: 8.5 0RF Trelegy Ellipta 100-62.5-25 mcg blister with device 1 inh inhalation DAILY Qty: 60 2RF atorvastatin 40 mg Tablet 40 mg PO BEDTIME Qty: 60 2RF Changed Lasix 40 mg Tablet 40 mg PO DAILY 30 Days Qty: 30 0RF Alvesco 80 mcg/actuation HFA aerosol inhaler 1 inh inhalation Q12H Qty: 6.1 4RF Discontinued ipratropium-albuterol 0.5 mg-3 mg(2.5 mg base)/3 mL Solution For Nebulization 3 ml INHALATION QID azithromycin 250 mg Tablet 500 mg PO DAILY Qty: 5 0RF Eliquis DVT-PE Treat 30D Start 5 mg (74 tabs) tablets,dose pack 5 mg PO BID Qty: 74 0RF methylprednisolone [Medrol (Naeem)] 4 mg tablets,dose pack See Rx Instructions .ROUTE .COMPLEX Qty: 21 0RF Rx Instructions: orally per package directions albuterol sulfate [ProAir HFA] 90 mcg/actuation HFA aerosol inhaler 2 inh inhalation Q4H PRN (Reason: shortness of breath or wheezing) Qty: 8.5 3RF albuterol sulfate 0.63 mg/3 mL solution for nebulization 0.63 mg inhalation QID 7 Days Qty: 84 2RF Discharge Orders: Discharge Order (Routine); Ordered 11/15/22 Ordered By: Constantine Zapata Referrals: Scott Baker MD [Physician] - 1-3 days Sloan Arias MD [Physician] - 11/22/22 9:00 am Mario Hanson M.D [Physician] - 4-7 days Discharge Diet: Cardiac Discharge Activity: Resume usual activity Patient Instructions: COPD, Heart Failure (DC), A-fib (Atrial Fibrillation) (DC), Parainfluenza (GEN), Opioid Safety Activity Restrictions/Additional Instructions: - For your congestive heart failure exacerbation -Please take Lasix 40 mg once daily with potassium replacement -Please please limit fluid intake to 1.5 L a day -If you develop worsening shortness of breath go to the emergency room -For atrial fibrillation continue metoprolol 100 twice daily, continue Cardizem 180 once daily see cardiology in 1 week -For your COPD please take steroids as prescribed -For your pneumonia please take Levaquin as prescribed -If you have any chest pain, palpitations, worsening shortness of breath go to emergency room Discharge Attestations Time Spent in Discharge Care*: greater than 30 min Quality Metrics Clinical Quality Measures [ No reported AMI, CVA or VTE this stay] Coding Level of Care Code 08804 Total time (in minutes) for Discharge: 40 Diagnoses Haemophilus infection A49.2 Acute respiratory failure with hypoxia J96.01 Acute exacerbation of CHF (congestive heart failure) I50.9 Diastolic CHF I50.30 Pneumonia J18.9 Atrial fibrillation with RVR I48.91 COPD exacerbation J44.1 Non compliance w medication regimen Z91.14 Goals of care, counseling/discussion Z71.89 UTI (urinary tract infection) N39.0 Elevated blood sugar R73.9
--- NOTE | 2022-11-15 12:51 | PC.NURSE ---
Spoke with pt about discharge and he does not have a ride. Spoke with community mental health social worker and she is setting up a ride for pt. I explained to pt that we have a ride coming but we do not have an eta, and that he needs to wait on his meds to come up from pharmacy. Pt does not want to wait on a ride and stated You will have to discharge me without a ride I'm leaving and I'm damn sick of this. Pt is waiting on meds at this time.
[2022-11-15] MEDS: ipratropium 0.5 mg/2.5 mL Neb INHALATION (13:12)
[2022-11-15] MEDS: albuterol 2.5 mg/3 mL Neb INHALATION (13:12)
--- NOTE | 2022-11-15 13:51 | PC.NURSE ---
Pt wheeled out via wc with belongings in hand. Discharge instructions given meds to beds done. 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 Pt voiced understanding.
== END 2022-11-15 13:51 | disposition home or self-care (01) | DRG 193 ==
LOC: ER 09:57 → CSU 19:52
PROVIDERS: Internal Medicine Hematology & Oncology; Admitting Provider Internal Medicine; Emergency Provider Family Medicine; Visit Provider Family Medicine
DX: J14 Pneumonia due to Hemophilus influenzae (principal); I50.31 Acute diastolic (congestive) heart failure; J96.21 Acute and chronic respiratory failure with hypoxia; J44.0 Chronic obstructive pulmonary disease with (acute) lower respiratory infection; J44.1 Chronic obstructive pulmonary disease with (acute) exacerbation; N39.0 Urinary tract infection, site not specified; Z91.14 Patient's other noncompliance with medication regimen; Z99.81 Dependence on supplemental oxygen; I48.0 Paroxysmal atrial fibrillation; F17.200 Nicotine dependence, unspecified, uncomplicated; Z79.51 Long term (current) use of inhaled steroids; E78.5 Hyperlipidemia, unspecified; R73.9 Hyperglycemia, unspecified
CPT/HCPCS: 36415; 36416; 36600; 51702; 71045; 71250; 80048; 80051; 80053; 81001; 82330; 82805; 82962; 83036; 83735; 83880; 84145; 84484; 85025; 86140; 86403; 87040; 87070; 87205; 87449; 87631; 87635; 87641; 93005; 94640; 94660; 94664; 94760; 96365; 96366; 96375; 99291; G0378; J0456; J0696; J1940; J2270; J2920; J2930; J3490; J7050; J7512; J7613; J7626; J7644

== ENCOUNTER → 2022-11-18 12:18 | Outpatient (BNVA) | payer MEDICAID, SELFPAY | PROVIDERS: Visit Provider Internal Medicine | DX: I48.91 Unspecified atrial fibrillation (principal); Z79.01 Long term (current) use of anticoagulants; E78.5 Hyperlipidemia, unspecified; J44.9 Chronic obstructive pulmonary disease, unspecified; F17.200 Nicotine dependence, unspecified, uncomplicated | CPT/HCPCS: 99204 ==

== ENCOUNTER → 2022-11-30 12:24 | Outpatient (BNVA) | payer MEDICAID, SELFPAY | PROVIDERS: Visit Provider Internal Medicine Pulmonary Disease | DX: J44.9 Chronic obstructive pulmonary disease, unspecified (principal); I50.9 Heart failure, unspecified; I48.91 Unspecified atrial fibrillation; F17.200 Nicotine dependence, unspecified, uncomplicated; R07.9 Chest pain, unspecified; Z79.01 Long term (current) use of anticoagulants; Z99.81 Dependence on supplemental oxygen | CPT/HCPCS: 99204 ==

== ENCOUNTER 2022-12-01 11:52 | Outpatient (CLI) | payer MEDICAID, SELFPAY ==
--- NOTE | 2022-12-01 12:08 | XRR_ITS ---
PROCEDURE INFORMATION: Exam: XR Chest Exam date and time: 12/01/2022 12:12 PM Age: 62 years old Clinical indication: Shortness of breath; Prior surgery; Additional info: Increased SOB TECHNIQUE: Imaging protocol: Radiologic exam of the chest. Views: 2 views. COMPARISON: CT chest con [id number] 11/12/2022 9:38 AM FINDINGS: Lungs: Unremarkable. No consolidation. Pleural spaces: Unremarkable. No pleural effusion. No pneumothorax. Heart/Mediastinum: Heart is mild-moderately enlarged, unchanged. Bones/joints: Cortical plate is left upper ribcage stabilizing old healed fractures. XR/XR chest 2V* [id number] IMPRESSION: Cardiomegaly otherwise negative chest.
== END 2022-12-01 11:53 | disposition home or self-care (01) ==
PROVIDERS: Visit Provider Internal Medicine Pulmonary Disease
DX: J44.9 Chronic obstructive pulmonary disease, unspecified (principal); I51.7 Cardiomegaly
CPT/HCPCS: 71046

== ENCOUNTER → 2022-12-08 12:15 | Outpatient (BNVA) | payer MEDICAID, SELFPAY | PROVIDERS: Visit Provider Family Medicine | DX: R30.0 Dysuria (principal); R21 Rash and other nonspecific skin eruption | CPT/HCPCS: 81000; 87491; 87591 ==

== ENCOUNTER → 2023-03-10 12:17 | Outpatient (BNVA) | payer MEDICAID, SELFPAY | PROVIDERS: PCP Family Medicine; Visit Provider Internal Medicine Pulmonary Disease | DX: J44.9 Chronic obstructive pulmonary disease, unspecified (principal); I50.9 Heart failure, unspecified; I48.11 Longstanding persistent atrial fibrillation; R07.9 Chest pain, unspecified; Z79.01 Long term (current) use of anticoagulants; F17.210 Nicotine dependence, cigarettes, uncomplicated; Z99.81 Dependence on supplemental oxygen; Z79.899 Other long term (current) drug therapy | CPT/HCPCS: 99214 ==

== ENCOUNTER 2023-03-31 18:19 | Emergency (ER) | payer MEDICAID, SELFPAY ==
[2023-03-31 18:20] VITALS: BP 93/61; PULSE 69; RESP 30; O2SAT 69
--- NOTE | 2023-03-31 18:35 | ED_ITS ---
HPI - SOB/Dyspnea General: Chief Complaint: Chest Pain Stated Complaint: CP Time Seen by Provider: 03/31/23 18:35 Limitations: other (Patient factors, acuity of condition) History of Present Illness: HPI Narrative: Mr. Pickering is a 62-year-old gentleman with complex history including COPD and chronic hypoxic respiratory failure as well as heart disease presenting to the emergency department for respiratory distress. Apparently worsening respiratory status over the past few days including increasing cough and shortness of breath. He typically wears oxygen and was unable to wear his oxygen between the car and initial triage evaluation before immediately being brought back for an oxygen saturation of 60s. Nonrebreather mask applied. Review of Systems General: Reports: Other (Acuity of condition) [facility] ED PFSH: Medical History Acute and chronic respiratory failure with hypoxia Acute exacerbation of chronic obstructive airways disease Atrial fibrillation Atrial fibrillation with RVR COPD (chronic obstructive pulmonary disease) Hyperlipidemia Rib deformity Right heart failure with reduced right ventricular function Surgical History History of colon surgery Family History Other CAD (coronary artery disease) Hypertension Lung disease Denies family history of Diabetes Clotting disorder Dementia Hyperlipidemia Psychiatric illness Chronic kidney disease (CKD) Anesthesia complication Bleeding disorder Cancer Stroke Social History Smoking and tobacco status: current every day smoker cigarettes Packs smoked per day: 0.5 Alcohol intake: former Substance/Drug Use: never Lives independently: Yes Current occupational status: disabled Current gender identity: Male Special jeri needs: No Agree to transfusion: Yes Physical Exam Resp: EFFORT & INSPECTION: Yes tachypneic, Yes respiratory distress and Yes labored AUSCULTATION: rhonchi and diminished lung sounds Course Vital Signs: Vital signs: Vital Signs Pulse Rate 69 03/31/23 18:20 Respiratory Rate 30 H 03/31/23 18:20 Blood Pressure 93/61 03/31/23 18:20 Pulse Oximetry 69 L 03/31/23 18:20 Oxygen Delivery Me thod Room Air 03/31/23 18:20 MDM - SOB/Dyspnea Medical Decision Making 62-year-old male presenting in respiratory distress. Immediately brought to res uscitation room and supplemental oxygen applied. Orders including BiPAP and treatments/evaluation for respiratory status ordered. Subsequently the patient began to argue with staff and refused cares. His son was disruptive and threatening and interfering with patient cares and was instructed to leave the room. Ultimately patient left AGAINST MEDICAL ADVICE. He understands the likely risk of or worse. Critical Care Time Critical Care Time: Critical Care Time: Yes Total Critical Care Time: 35 Attestation: Due to a high probability of clinically significant, possibly life threatening deterioration, the patient required my highest level of attention and preparedness to intervene emergently and I personally spent this critical care time directly and personally managing the patient. This critical care time inc luded obtaining a history; examining the patient; pulse oximetry; ordering and review of laboratory and imaging studies; arranging urgent treatment with development of a management plan; evaluation of patient's response to treatment; frequent reassessment; and, discussions with other providers as applicable. It was exclusive of separately billable procedures. Primary system involved is respiratory. Discharge Plan Discharge Patient Disposition: Left Against Medical Advice Clinical Impression: Acute respiratory distress Condition: Stable Prescriptions: No Action metoprolol tartrate 100 mg tablet 100 mg PO BID 90 Days Qty: 180 2RF potassium chloride 10 mEq tablet extended release 20 meq PO DAILY Qty: 60 0RF Eliquis 5 mg tablet 5 mg PO BID albuterol sulfate 2.5 mg /3 mL (0.083 %) solution for nebulization 2.5 mg inhalation Q6H PRN (Reason: shortness of breath or wheezing) Qty: 180 5RF Rx Instructions: to use while DuoNeb is unavailable ipratropium-albuterol 0.5 mg-3 mg(2.5 mg base)/3 mL solution for nebulization 3 ml inhalation Q6H PRN (Reason: shortness of breath or wheezing) 30 Days Qty: 180 3RF Anoro Ellipta 62.5-25 mcg/actuation blister with device 1 inh inhalation DAILY Qty: 60 1RF Pacerone 200 mg Tablet 200 mg PO BID Qty: 60 0RF Rx Instructions: Take 200 mg twice daily for next 1 week followed by 200 mg daily. linezolid 600 mg tablet 600 mg PO BID 14 Days Qty: 28 0RF levofloxacin 500 mg tablet 500 mg PO Q24H 7 Days Qty: 7 0RF torsemide 20 mg tablet 40 mg PO DAILY Qty: 60 0RF budesonide 0.5 mg/2 mL suspension for nebulization 0.5 mg inhalation BID Qty: 60 6RF nystatin 100,000 unit/gram cream 1 applic topical DAILY PRN (Reason: UNKNOWN) sildenafil (pulm.hypertension) 20 mg tablet 20 mg PO DAILY MDD 4 TABS PRN (Reason: sexual activity) Rx Instructions: use 30 minutes before intercourse. max 4 tablets per 24hrs Referrals: Sloan Arias MD [Primary Care Provider] - Print Language: Mosotho Coding Level of Care Code ED Outdoor Studies Director for Emily Talbot
--- NOTE | 2023-03-31 18:36 | ECG_ITS ---
[facility] Test Date: 2023-03-31 Pat Name: Gareth Pickering Department: Room: Gender: Male Resource Conservationist: : 1960 Requested By: Preet Allred Order Number: [id number] Hoang MD: Sara Giraldo M.D. Measurements Intervals [place] Rate: 69 P: 0 CT: 0 QRS: 71 QRSD: 112 T: 42 QT: 390 QTc: 420 Interpretive Statements ATRIAL FIBRILLATION LOW QRS VOLTAGE IN PRECORDIAL LEADS [QRS DEFLECTION < 1.0 mV IN CHEST LEADS] INCOMPLETE RIGHT BUNDLE BRANCH BLOCK [90+ ms QRS DURATION, TERMINAL R IN V1/V2, 40+ ms S IN I/aVL/V4/V5/V6] ANTEROSEPTAL MYOCARDIAL INFARCTION , OF INDETERMINATE AGE [40+ ms Q WAVE IN V1-V4] INTERPRETATION BASED ON A DEFAULT AGE OF 40 YEARS Compared to ECG 11/12/2022 15:36:05 Low QRS voltage now present Myocardial infarct finding now present Electronically Signed On 03-31-2023 19:05:03 CDT by Sara Giraldo M.D. [email or web address]
--- NOTE | 2023-03-31 19:10 | PC.NURSE ---
PT WAS ALERT AND ORIENTATED X4 AND SIGNED OUT AMA. PT EDUCATED ON RISKS OF LEAVING AMA BUT STILL CHOSE TO LEAVE. DUE TO THE SPEED OF THE ESCALATION OF THE SITUATION, PT WAS UNABLE TO BE ASSESSED FOR HIS CHIEF COMPLAINT.
== END 2023-03-31 19:15 | disposition left against medical advice (07) ==
PROVIDERS: Emergency Provider Emergency Medicine; PCP Family Medicine
DX: R06.03 Acute respiratory distress (principal); Z53.29 Procedure and treatment not carried out because of patient's decision for other reasons
CPT/HCPCS: 93005; 99284

== ENCOUNTER 2023-03-31 23:48 | Inpatient (IN) | payer MEDICAID, SELFPAY ==
--- NOTE | 2023-03-31 23:49 | ED_ITS ---
HPI - Chest Pain General: Stated Complaint: CP Time Seen by Provider: 03/31/23 23:49 PFSH ED PFSH: Medical History Acute and chronic respiratory failure with hypoxia Acute exacerbation of chronic obstructive airways disease Atrial fibrillation Atrial fibrillation with RVR COPD (chronic obstructive pulmonary disease) Hyperlipidemia Rib deformity Surgical History History of colon surgery Family History Other CAD (coronary artery disease) Hypertension Lung disease Denies family history of Diabetes Clotting disorder Dementia Hyperlipidemia Psychiatric illness Chronic kidney disease (CKD) Anesthesia complication Bleeding disorder Cancer Stroke Social History Smoking and tobacco status: current every day smoker cigarettes Packs smoked per day: 0.5 Alcohol intake: former Substance/Drug Use: never Lives independently: Yes Current occupational status: disabled Current gender identity: Male Special jeri needs: No Agree to transfusion: Yes Discharge Plan Discharge Condition: Stable Prescriptions: No Action nystatin 100,000 unit/gram cream 1 applic topical DAILY Qty: 30 1RF sildenafil (pulm.hypertension) 20 mg tablet 20 mg PO ONCE PRN (Reason: sexual activity) Qty: 30 0RF Rx Instructions: use 30 minutes before intercourse. max 4 tablets per 24hrs diltiazem HCl 180 mg capsule,extended release 24 hr 180 mg PO QAM Qty: 90 3RF metoprolol tartrate 100 mg tablet 100 mg PO BID 90 Days Qty: 180 2RF potassium chloride 10 mEq tablet extended release 20 meq PO DAILY Qty: 60 0RF Eliquis 5 mg tablet 5 mg PO BID budesonide 0.5 mg/2 mL suspension for nebulization 0.5 mg inhalation BID Qty: 60 6RF Alvesco 80 mcg/actuation HFA aerosol inhaler 1 inh inhalation Q12H Qty: 6.1 4RF albuterol sulfate 2.5 mg /3 mL (0.083 %) solution for nebulization 2.5 mg inhalation Q6H PRN (Reason: shortness of breath or wheezing) Qty: 180 5RF Rx Instructions: to use while DuoNeb is unavailable ipratropium-albuterol 0.5 mg-3 mg(2.5 mg base)/3 mL solution for nebulization 3 ml inhalation Q6H PRN (Reason: shortness of breath or wheezing) 30 Days Qty: 180 3RF Anoro Ellipta 62.5-25 mcg/actuation blister with device 1 inh inhalation DAILY Qty: 60 1RF torsemide 20 mg tablet See Rx Instructions PO QAM Qty: 65 0RF Rx Instructions: 60mg PO qAM x 5 days, then 40mg PO qAM daily Serevent Diskus 50 mcg/dose blister with device 2 inh inhalation BID Qty: 60 6RF Spiriva Respimat 1.25 mcg/actuation mist 2 puff inhalation DAILY Qty: 4 6RF Referrals: Sloan Arias MD [Primary Care Provider] - Coding Level of Care Code ED Professor Of Mechanical Engineering for Emily Talbot
[2023-03-31 23:51] VITALS: BP 117/73; PULSE 91; RESP 25; TEMP 37.1; O2SAT 84; BMI 38.3
--- NOTE | 2023-03-31 23:53 | ECG_ITS ---
[facility] Test Date: 2023-04-01 Pat Name: Gareth Pickering Department: Room: Gender: Male Optoelectronics Engineer: : 1960 Requested By: Preet Allred Order Number: [id number] Natalya MD: Mario Hanson M.D. Measurements Intervals [place] Rate: 91 P: 0 [place]: 0 QRS: 80 QRSD: 103 T: 32 QT: 336 QTc: 414 Interpretive Statements ATRIAL FIBRILLATION LOW QRS VOLTAGE IN PRECORDIAL LEADS [QRS DEFLECTION < 1.0 mV IN CHEST LEADS] INCOMPLETE RIGHT BUNDLE BRANCH BLOCK [90+ ms QRS DURATION, TERMINAL R IN V1/V2, 40+ ms S IN I/aVL/V4/V5/V6] SEPTAL MYOCARDIAL INFARCTION , PROBABLY OLD [40+ ms Q WAVE IN V1/V2] Compared to ECG 03/31/2023 18:55:32 No significant changes Electronically Signed On 04-01-2023 7:57:44 CDT by Mario Hanson M.D. [id number]
--- NOTE | 2023-03-31 23:53 | XRR_ITS ---
PROCEDURE INFORMATION: Exam: XR Chest Exam date and time: 04/01/2023 1:25 AM Age: 62 years old Clinical indication: Pain; Other: Hypoxia - on bipap; Chest pressure; Prior surgery; Surgery date: 6+ months; Surgery type: Rib FX repair; Additional info: Cp TECHNIQUE: Imaging protocol: Radiologic exam of the chest. Views: 1 view. COMPARISON: CR XR chest 2V* [id number] 12/01/2022 12:12 PM FINDINGS: Lungs: Mild COPD. No consolidation visualized. Pleural spaces: Unremarkable. No pleural effusion. No pneumothorax. Heart/Mediastinum: The heart is large. Mild venous congestion is possible. The findings may have progressed mildly from 12/01/2022. Vasculature: Advanced diffuse vascular calcification noted. Bones/joints: Left rib plating. XR/XR chest 1V portable [id number] IMPRESSION: 1. Large heart with mild COPD and questionable venous congestion. 2. No focal pneumonia.
[2023-04-01] VITALS (50 sets, daily range): BP systolic 100–134; BP diastolic 66–87; PULSE 65–133; RESP 13–25; TEMP 37.2; O2SAT 85–98
--- NOTE | 2023-04-01 00:02 | W.ED.CHESTPA ---
Documented by User: HUMA Dawson 04/01/23 02:24 HPI - Chest Pain General: Chief Complaint: ER Hold Stated Complaint: CP Time Seen by Provider: 03/31/23 23:49 History of Present Illness: 62-year-old male patient comes in today for complaints of difficulty breathing and chest pain. Patient is confused and not allowing care. Patient has a history of COPD, CHF. Patient was here earlier in the evening but left AMA after refusing blood work and chest x-ray. Patient then again called EMS and was brought back in and worsening distress. Patient is resistant with care. Pertinent past history: other Associated symptoms: Reports dyspnea Review of Systems General: Reports: 10 or more systems reviewed and unremarkable except in HPI and below Card: Denies: chest pain Resp: Reports: dyspnea PFSH ED PFSH: Medical History Acute and chronic respiratory failure with hypoxia Acute exacerbation of chronic obstructive airways disease Atrial fibrillation Atrial fibrillation with RVR COPD (chronic obstructive pulmonary disease) Hyperlipidemia Rib deformity Right heart failure with reduced right ventricular function Surgical History History of colon surgery Family History Other CAD (coronary artery disease) Hypertension Lung disease Denies family history of Diabetes Clotting disorder Dementia Hyperlipidemia Psychiatric illness Chronic kidney disease (CKD) Anesthesia complication Bleeding disorder Cancer Stroke Social History Smoking and tobacco status: current every day smoker cigarettes Packs smoked per day: 0.5 Alcohol intake: former Substance/Drug Use: never Lives independently: Yes Current occupational status: disabled Current gender identity: Male Special jeri needs: No Agree to transfusion: Yes Physical Exam Const: EXAM LIMITATIONS: altered mental status HENMT: COMMON NORMALS: normocephalic HEAD & SCALP: normocephalic MOUTH: Normal oral and palatal mucosa present Neck/C-Spine: COMMON NORMALS: full ROM Resp: AUSCULTATION: diminished lung sounds Cardio: COMMON NORMALS: regular rate and regular rhythm RATE: regular rate RHYTHM: regular rhythm GI: PALPATION: No Tenderness to palpation present (GI) Extremity: NARRATIVE EXTREMITY EXAM: Distal edema in all 4 extremities Neuro: TALITA COMA SCALE: document GCS findings Talita coma scale eye opening: Spontaneous Talita coma scale verbal response: Confused Snyder coma scale motor response: Localising Talita coma scale total score: 13 Skin: NARRATIVE SKIN EXAM: Mottling noted in all 4 extremities and abdomen Course ED course: 1215, discussed patient with Dr. Allred, patient is in obvious respiratory distress and is uncooperative with staff. Believe patient to be chemically restrained in order for us to proceed with exam and medical clearance. 1235, nursing is working with patient in order to have him proceed with exam without chemical restraint. Patient at this time is agreed to give blood and have an IV started. Vital Signs: Vital signs: Vital Signs Temperature 97.6 F 04/05/23 12:39 Pulse Rate 105 H 04/05/23 14:54 Respiratory Rate 20 H 04/05/23 14:54 Blood Pressure 117/91 04/05/23 12:39 Pulse Oximetry 94 04/05/23 14:54 Oxygen Delivery Me thod Nasal Cannula 04/05/23 14:54 Oxygen Flow Rate 3 04/05/23 14:54 Fraction of Inspir ed Oxygen 40 04/05/23 11:48 MDM - Chest Pain Medical Decision Making 62-year-old male patient comes in with respiratory distress. Patient at first was very resistant to care. Patient was refusing blood work and x-rays for evaluation. Patient did not seem to realize the extent of his illness and I recommended medical restraint in order to assess the patient further. After further discussion with banquet houseperson and nursing, patient finally did decide to go ahead and allow care. On exam patient had decreased lung sounds throughout. Patient had mottling of the skin. Patient would respond to questions appropriately but failed to realize the extent of his illness. Patient had swelling of his hands and lower extremities. EKG showed a sinus rhythm. Differential diagnosis includes but not limited to respiratory failure, ACS, CHF, acute exacerbation of COPD, hypercapnia. ABG noted a pH of 7.23, carbon dioxide 71, PO2 56, potassium of 4.8. Patient then allowed BiPAP to be placed on and was resting comfortably. Talked with Dr. Gomez who agreed with plan and recommended admission to hospitalist services. Talk to Dr. Rosario who agreed to admission. Patient will be a ER hold until CSU bed becomes available. Lab Data 04/04/23 16:08 04/05/23 12:[address] 04/01/23 06:17 Impression: 1. Interstitial change throughout the lungs which remains the same. 2. Cardiomegaly 3. Small bilateral pleural effusions 4. Minimal pericholecystic and perisplenic fluid. Lower Extremity CT 04/02/23 08:39 IMPRESSION: 1. Mild soft tissue swelling without abscess. 2. Small right knee joint effusion without acute fracture. Chest X-Ray 04/04/23 18:03 IMPRESSION: Cardiomegaly with mild congestion Chest CTA 04/05/23 09:30 IMPRESSION: 1. Moderate cardiomegaly. Small bilateral pleural effusions with adjacent atelectasis 2. Centrilobular and paraseptal emphysematous change. 3. Reflux into the hepatic veins suggestive of right heart failure. 4. Fatty infiltration of the liver COMMENTS: In the absence of a history or active diagnosis of lung cancer, it is recommended that this patient with emphysema be evaluated for enrollment in a low dose CT lung cancer screening program. Laboratory Results WBC 18.1 10^3/uL (4.0-10.0) H 04/01/23 00:58 RBC 5.21 10^6/uL (4.1-5.3) 04/01/23 00:58 Hgb 14.4 g/dL (11.7-16.6) 04/01/23 00:58 Hct 48.9 % (42.0-52.0) 04/01/23 00:58 MCV 93.9 fl (80-94) 04/01/23 00:58 MCH 27.6 pg (28.0-34.0) L 04/01/23 00:58 MCHC 29.4 g/dL (30.0-36.0) L 04/01/23 00:58 RDW 14.9 % (12.1-15.1) 04/01/23 00:58 Plt Count 333 10^3/cmm (130-400) 04/01/23 00:58 MPV 9.6 fL (7.4-10.4) 04/01/23 00:58 Neut % (Auto) 92.5 % 04/01/23 00:58 Lymph % (Auto) 3.6 % 04/01/23 00:58 [place] % (Auto) 3.0 % 04/01/23 00:58 Eos % (Auto) 0.1 % 04/01/23 00:58 Baso % (Auto) 0.3 % 04/01/23 00:58 Neut # (Auto) 16.71 10^3/uL (1.8-7.7) H 04/01/23 00:58 Lymph # (Auto) 0.7 10^3/uL (0.8-4.8) L 04/01/23 00:58 [place] # (Auto) 0.6 10^3/uL (0.2-0.9) 04/01/23 00:58 Eos # (Auto) 0.0 10^3/uL (0.0-0.8) 04/01/23 00:58 Baso # (Auto) 0.1 10^3/uL (0.0-0.1) 04/01/23 00:58 Nucleated RBC % (auto) 0.4 % 04/01/23 00:58 Nucleated RBCs # 0.1 /100WBC 04/01/23 00:58 Specimen Type Arterial 04/01/23 00:39 Sample Site Radial, right 04/01/23 00:39 ABG pH 7.23 (7.35-7.45) L 04/01/23 00:39 ABG pCO2 71.3 mmHg (35-45) H* 04/01/23 00:39 ABG pO2 56.6 mmHg (80.0-100.0) L 04/01/23 00:39 ABG HCO3 30.0 mmol/L (22-26) H 04/01/23 00:39 ABG Base Excess 0.3 mmol/L (-2.0-2.0) 04/01/23 00:39 Jacob Test Pos 04/01/23 00:39 Hematocrit 44.4 % (42-52) 04/01/23 00:39 O2 Delivery Device Nc 04/01/23 00:39 O2 Liters/Min 5.0 % 04/01/23 00:39 Wire Wrapper Machine Operator ID [place] 04/01/23 00:39 Sodium 136 mmol/L (136-145) 03/31/23 00:58 Potassium 5.0 mmol/L (3.5-5.1) 03/31/23 00:58 Chloride 96 mmol/L (98-107) L 03/31/23 00:58 Carbon Dioxide 30 mmol/L (22-29) H 03/31/23 00:58 Anion Gap 15.0 (5-19) 03/31/23 00:58 BUN 27 mg/dL (8-23) H 03/31/23 00:58 Creatinine 1.5 mg/dL (0.7-1.2) H 03/31/23 00:58 GFR Calculation 47.1 mL/min (90-130) L 03/31/23 00:58 Glucose 103 mg/dL (65-115) 03/31/23 00:58 Estimat Average Glucose 137 04/01/23 00:58 Hemoglobin A1c 6.4 % (4.0-6.0) H 04/01/23 00:58 Calculated Osmolality 287 mOsm/kg (285-295) 03/31/23 00:58 Lactic Acid 3.2 mmol/L (0.5-2.2) H 04/01/23 00:58 Calcium 9.4 mg/dL (8.5-10.5) 03/31/23 00:58 Total Bilirubin 0.6 mg/dL (0.15-1.2) 03/31/23 00:58 AST 361 U/L (0-40) H 03/31/23 00:58 ALT 246 U/L (0-41) H 03/31/23 00:58 Alkaline Phosphatase 114 U/L (40-130) 03/31/23 00:58 Troponin T Baseline 38 ng/L (0-15) H 03/31/23 00:58 NT-Pro-B Natriuret Pep 6170 pg/mL (0-125) H 03/31/23 00:58 Total Protein 7.5 g/dL (6.6-8.7) 03/31/23 00:58 Albumin 3.6 g/dL (3.5-5.2) 03/31/23 00:58 Globulin 3.9 g/dL (1.3-4.6) 03/31/23 00:58 Lipase 21 U/L (13-60) 03/31/23 00:58 Discharge Plan Discharge Patient Disposition: Admitted As Inpatient Admit Provider: Oriana Rosario Clinical Impression: Respiratory failure with hypoxia and hypercapnia, COPD exacerbation Congestive heart failure Qualifiers: Heart failure type: unspecified Heart failure chronicity: chronic Qualified Code(s): I50.9 - Heart failure, unspecified Condition: Stable Coding Level of Care Code ED Hoister for Chg Fwd Documented by User: Preet Allred MD 04/13/23 10:25 HPI - Chest Pain General: Chief Complaint: ER Hold Stated Complaint: CP Time Seen by Provider: 03/31/23 23:49 PFSH ED PFSH: Medical History Acute and chronic respiratory failure with hypoxia Acute exacerbation of chronic obstructive airways disease Atrial fibrillation Atrial fibrillation with RVR COPD (chronic obstructive pulmonary disease) Hyperlipidemia Rib deformity Right heart failure with reduced right ventricular function Surgical History History of colon surgery Family History Other CAD (coronary artery disease) Hypertension Lung disease Denies family history of Diabetes Clotting disorder Dementia Hyperlipidemia Psychiatric illness Chronic kidney disease (CKD) Anesthesia complication Bleeding disorder Cancer Stroke Social History Smoking and tobacco status: current every day smoker cigarettes Packs smoked per day: 0.5 Alcohol intake: former Substance/Drug Use: never Lives independently: Yes Current occupational status: disabled Current gender identity: Male Special jeri needs: No Agree to transfusion: Yes Physical Exam Neuro: TALITA COMA SCALE: document GCS findings Talita coma scale total score: 13 Course Vital Signs: Vital signs: Vital Signs Temperature 97.6 F 04/05/23 12:39 Pulse Rate 105 H 04/05/23 14:54 Respiratory Rate 20 H 04/05/23 14:54 Blood Pressure 117/91 04/05/23 12:39 Pulse Oximetry 94 04/05/23 14:54 Oxygen Delivery Me thod Nasal Cannula 04/05/23 14:54 Oxygen Flow Rate 3 04/05/23 14:54 Fraction of Inspir ed Oxygen 40 04/05/23 11:48 MDM - Chest Pain Medical Decision Making 62-year-old male patient comes in with respiratory distress. Patient at first was very resistant to care. Patient was refusing blood work and x-rays for evaluation. Patient did not seem to realize the extent of his illness and I recommended medical restraint in order to assess the patient further. After further discussion with banquet houseperson and nursing, patient finally did decide to go ahead and allow care. On exam patient had decreased lung sounds throughout. Patient had mottling of the skin. Patient would respond to questions appropriately but failed to realize the extent of his illness. Patient had swelling of his hands and lower extremities. EKG showed a sinus rhythm. Differential diagnosis includes but not limited to respiratory failure, ACS, CHF, acute exacerbation of COPD, hypercapnia. ABG noted a pH of 7.23, carbon dioxide 71, PO2 56, potassium of 4.8. Patient then allowed BiPAP to be placed on and was resting comfortably. Talked with Dr. Gomez who agreed with plan and recommended admission to hospitalist services. Talk to Dr. Rosario who agreed to admission. Patient will be a ER hold until CSU bed becomes available. I discussed this case with HUMA Back. I have reviewed labs, imaging, documentation. Preet Allred MD Emergency Medicine Lab Data 04/04/23 16:08 04/05/23 12:[address] 04/01/23 06:17 Impression: 1. Interstitial change throughout the lungs which remains the same. 2. Cardiomegaly 3. Small bilateral pleural effusions 4. Minimal pericholecystic and perisplenic fluid. Lower Extremity CT 04/02/23 08:39 IMPRESSION: 1. Mild soft tissue swelling without abscess. 2. Small right knee joint effusion without acute fracture. Chest X-Ray 04/04/23 18:03 IMPRESSION: Cardiomegaly with mild congestion Chest CTA 04/05/23 09:30 IMPRESSION: 1. Moderate cardiomegaly. Small bilateral pleural effusions with adjacent atelectasis 2. Centrilobular and paraseptal emphysematous change. 3. Reflux into the hepatic veins suggestive of right heart failure. 4. Fatty infiltration of the liver COMMENTS: In the absence of a history or active diagnosis of lung cancer, it is recommended that this patient with emphysema be evaluated for enrollment in a low dose CT lung cancer screening program. Laboratory Results WBC 18.1 10^3/uL (4.0-10.0) H 04/01/23 00:58 RBC 5.21 10^6/uL (4.1-5.3) 04/01/23 00:58 Hgb 14.4 g/dL (11.7-16.6) 04/01/23 00:58 Hct 48.9 % (42.0-52.0) 04/01/23 00:58 MCV 93.9 fl (80-94) 04/01/23 00:58 MCH 27.6 pg (28.0-34.0) L 04/01/23 00:58 MCHC 29.4 g/dL (30.0-36.0) L 04/01/23 00:58 RDW 14.9 % (12.1-15.1) 04/01/23 00:58 Plt Count 333 10^3/cmm (130-400) 04/01/23 00:58 MPV 9.6 fL (7.4-10.4) 04/01/23 00:58 Neut % (Auto) 92.5 % 04/01/23 00:58 Lymph % (Auto) 3.6 % 04/01/23 00:58 [place] % (Auto) 3.0 % 04/01/23 00:58 Eos % (Auto) 0.1 % 04/01/23 00:58 Baso % (Auto) 0.3 % 04/01/23 00:58 Neut # (Auto) 16.71 10^3/uL (1.8-7.7) H 04/01/23 00:58 Lymph # (Auto) 0.7 10^3/uL (0.8-4.8) L 04/01/23 00:58 [place] # (Auto) 0.6 10^3/uL (0.2-0.9) 04/01/23 00:58 Eos # (Auto) 0.0 10^3/uL (0.0-0.8) 04/01/23 00:58 Baso # (Auto) 0.1 10^3/uL (0.0-0.1) 04/01/23 00:58 Nucleated RBC % (auto) 0.4 % 04/01/23 00:58 Nucleated RBCs # 0.1 /100WBC 04/01/23 00:58 Specimen Type Arterial 04/01/23 00:39 Sample Site Radial, right 04/01/23 00:39 ABG pH 7.23 (7.35-7.45) L 04/01/23 00:39 ABG pCO2 71.3 mmHg (35-45) H* 04/01/23 00:39 ABG pO2 56.6 mmHg (80.0-100.0) L 04/01/23 00:39 ABG HCO3 30.0 mmol/L (22-26) H 04/01/23 00:39 ABG Base Excess 0.3 mmol/L (-2.0-2.0) 04/01/23 00:39 Jacob Test Pos 04/01/23 00:39 Hematocrit 44.4 % (42-52) 04/01/23 00:39 O2 Delivery Device Nc 04/01/23 00:39 O2 Liters/Min 5.0 % 04/01/23 00:39 Wire Wrapper Machine Operator ID [place] 04/01/23 00:39 Sodium 136 mmol/L (136-145) 03/31/23 00:58 Potassium 5.0 mmol/L (3.5-5.1) 03/31/23 00:58 Chloride 96 mmol/L (98-107) L 03/31/23 00:58 Carbon Dioxide 30 mmol/L (22-29) H 03/31/23 00:58 Anion Gap 15.0 (5-19) 03/31/23 00:58 BUN 27 mg/dL (8-23) H 03/31/23 00:58 Creatinine 1.5 mg/dL (0.7-1.2) H 03/31/23 00:58 GFR Calculation 47.1 mL/min (90-130) L 03/31/23 00:58 Glucose 103 mg/dL (65-115) 03/31/23 00:58 Estimat Average Glucose 137 04/01/23 00:58 Hemoglobin A1c 6.4 % (4.0-6.0) H 04/01/23 00:58 Calculated Osmolality 287 mOsm/kg (285-295) 03/31/23 00:58 Lactic Acid 3.2 mmol/L (0.5-2.2) H 04/01/23 00:58 Calcium 9.4 mg/dL (8.5-10.5) 03/31/23 00:58 Total Bilirubin 0.6 mg/dL (0.15-1.2) 03/31/23 00:58 AST 361 U/L (0-40) H 03/31/23 00:58 ALT 246 U/L (0-41) H 03/31/23 00:58 Alkaline Phosphatase 114 U/L (40-130) 03/31/23 00:58 Troponin T Baseline 38 ng/L (0-15) H 03/31/23 00:58 NT-Pro-B Natriuret Pep 6170 pg/mL (0-125) H 03/31/23 00:58 Total Protein 7.5 g/dL (6.6-8.7) 03/31/23 00:58 Albumin 3.6 g/dL (3.5-5.2) 03/31/23 00:58 Globulin 3.9 g/dL (1.3-4.6) 03/31/23 00:58 Lipase 21 U/L (13-60) 03/31/23 00:58 Discharge Plan Discharge Patient Disposition: Admitted As Inpatient Admit Provider: Oriana Rosario Clinical Impression: Respiratory failure with hypoxia and hypercapnia, COPD exacerbation Congestive heart failure Qualifiers: Heart failure type: unspecified Heart failure chronicity: chronic Qualified Code(s): I50.9 - Heart failure, unspecified Condition: Stable Coding Level of Care Code ED Hoister for Emily Talbot
[2023-04-01 00:51] LABS: ABG PH Result 7.23 (7.35-7.45); Arterial Blood Gas Hematocrit 44.4 % (42-52); Base Excess ABG 0.3 mmol/L (-2.0-2.0); Blood Gas Allen Test Pos; Blood Gas Operator Identificat WALCI; Blood Gas Sample Site Radial, right; Blood Gas Sample Type Arterial; Oxygen Device NC; PO2 ABG 56.6 mmHg (80.0-100.0)
[2023-04-01 00:52] LABS: ABG PCO2 71.3 mmHg (35-45)
[2023-04-01 01:06] LABS: Basophils # 0.1 10^3/uL (0.0-0.1); Basophils % 0.3 %; Eosinophils % 0.1 %; Hematocrit 48.9 % (42.0-52.0); Hemoglobin 14.4 g/dL (11.7-16.6); Lymphocytes # 0.7 10^3/uL (0.8-4.8); Lymphocytes % 3.6 %; Mean Corpuscular HGB Conc 29.4 g/dL (30.0-36.0); Mean Corpuscular Hemoglobin 27.6 pg (28.0-34.0); Mean Corpuscular Volume 93.9 fl (80-94); Mean Platelet Volume 9.6 fL (7.4-10.4); Monocytes # 0.6 10^3/uL (0.2-0.9); Neutrophils # 16.71 10^3/uL (1.8-7.7); Neutrophils % 92.5 %; Nucleated Red Blood Cells # 0.1 /100WBC; Nucleated Red Blood Cells % 0.4 %; Platelet Count 333 10^3/cmm (130-400); Red Blood Count 5.21 10^6/uL (4.1-5.3); Red Cell Distribution Width 14.9 % (12.1-15.1); White Blood Count 18.1 10^3/uL (4.0-10.0)
[2023-04-01] MEDS: ipratropium-albuterol 3 mL Neb INHALATION ×6 (01:06→21:25)
[2023-04-01] MEDS: FUROsemide 10 mg/mL SDV 4mL 40 MG IVP ×2 (01:08→06:34)
[2023-04-01 01:23] LABS: Troponin(5th) Baseline 38 ng/L (0-15)
[2023-04-01 01:32] LABS: Alanine Aminotransferase 246 U/L (0-41); Albumin Level 3.6 g/dL (3.5-5.2); Alkaline Phosphatase 114 U/L (40-130); Aspartate Amino Transferase 361 U/L (0-40); Blood Urea Nitrogen 27 mg/dL (8-23); Calcium 9.4 mg/dL (8.5-10.5); Carbon Dioxide 30 mmol/L (22-29); Chloride 96 mmol/L (98-107); Globulin 3.9 g/dL (1.3-4.6); Glomerular Filtration Rate 47.1 mL/min (90-130); Glucose 103 mg/dL (65-115); Lipase 21 U/L (13-60); NT Pro B Type Natriuretic Pept 6170 pg/mL (0-125); Osmolality Calculated 287 mOsm/kg (285-295); Sodium 136 mmol/L (136-145); Total Bilirubin 0.6 mg/dL (0.15-1.2); Total Protein 7.5 g/dL (6.6-8.7)
--- NOTE | 2023-04-01 01:53 | ECG_ITS ---
[facility] Test Date: 2023-04-01 Pat Name: Gareth Pickering Department: Room: Gender: Male Payroll Professional: : 1960 Requested By: Preet Allred Order Number: [id number] Natalya MD: Mario Hanson M.D. Measurements Intervals [place] Rate: 99 P: 0 VT: 0 QRS: 66 QRSD: 116 T: -9 QT: 347 QTc: 447 Interpretive Statements ATRIAL FIBRILLATION LOW QRS VOLTAGE [QRS DEFLECTION < 0.5/1.0 mV IN LIMB/CHEST LEADS] INCOMPLETE RIGHT BUNDLE BRANCH BLOCK [90+ ms QRS DURATION, TERMINAL R IN V1/V2, 40+ ms S IN I/aVL/V4/V5/V6] POSSIBLE ANTERIOR MYOCARDIAL INFARCTION , OF INDETERMINATE AGE [30 ms Q WAVE IN V3/V4, OR R < 0.2 mV IN V4] Compared to ECG 04/01/2023 00:00:17 No significant changes Electronically Signed On 04-01-2023 7:59:16 CDT by Mario Hanson M.D. [id number]
[2023-04-01] MEDS: dexamethasone 10 mg/mL INJ 6 MG IVP ×2 (02:19→15:51)
--- NOTE | 2023-04-01 02:33 | P.HP_ITS ---
Providers/Chief Complaint Admitting Physician: Oriana Rosario MD Primary Care Provider: Sloan Arias MD Chief Complaint: CP History of Present Illness Gareth Pickering is a 62 year old male with past medical history of COPD, A-fib with RVR, hyperlipidemia presented to the hospital today with complaint of shortness of breath and some chest pain. Apparently also has a history of CHF. He was here earlier today and left AMA after refusing care. He then called EMS again and was brought in with worsening distress. He was about to get chemical restraint in the ER but then stated that he is willing to have blood work done in some treatment. He was placed on BiPAP and given Lasix 40 IV x1. Since then breathing is a lot better and he is somewhat improved. However he is altered and confused at this time. Unable to obtain any kind of history. Patient moans when he tried to talk to him. He is also wet himself in the bed. Knight catheter will be placed shortly. I do not have much details regarding his chest pain at this time. As per ER report he did have swelling of his hands and lower extremities on arrival and had mottling up to his abdomen which is now improved. Initial ABG showed 7.2 /56/4 0.8. He has been resting comfortably since then. WBC 18.1, hemoglobin 14.4, platelet 333, sodium 136, potassium 5, creatinine 1.5, BNP 6100. Baseline troponin 38. Medications/Allergies Home Medications Medication Instructions Recorded Confirmed Last Taken Type ciclesonide 80 mcg/actuation 1 inh inhalation Q12H #6.1 grams 11/15/22 03/23/23 Unknown Rx aerosol inhaler (Alvesco) albuterol sulfate 2.5 mg/3 mL 2.5 mg (3 mL) inhalation Q6H PRN 12/06/22 03/23/23 Unknown Rx (0.083 %) solution for nebulization shortness of breath or wheezing #180 mL nystatin 100,000 unit/gram topical 1 applic topical DAILY #30 grams 12/08/22 03/23/23 Unknown Rx cream sildenafil (pulm.hypertension) 20 20 mg PO ONCE PRN sexual activity 12/08/22 03/23/23 Unknown Rx mg tablet #30 tabs diltiazem HCl 180 mg capsule,24 180 mg PO QAM #90 caps 12/22/22 03/23/23 Unknown Rx hr,extended release metoprolol tartrate 100 mg tablet 100 mg PO BID 90 days #180 tabs 12/22/22 03/23/23 Unknown Rx ipratropium 0.5 mg-albuterol 3 mg 3 ml inhalation Q6H PRN shortness 12/24/22 03/23/23 Unknown Rx (2.5 mg base)/3 mL nebulization of breath or wheezing 30 days #180 soln mL umeclidinium 62.5 mcg-vilanterol 1 inh inhalation DAILY #60 ea 12/24/22 03/23/23 Unknown Rx 25 mcg/actuation powdr for inhalation (Anoro Ellipta) potassium chloride 10 mEq 20 meq PO DAILY #60 tabs 02/28/23 03/23/23 Unknown Rx tablet,extended release apixaban 5 mg tablet (Eliquis) 5 mg PO BID 03/10/23 03/23/23 Unknown History budesonide 0.5 mg/2 mL suspension 0.5 mg (2 mL) inhalation BID COPD 03/10/23 03/23/23 Unknown Rx for nebulization #60 mL torsemide 20 mg tablet See Rx Instructions PO QAM #65 tabs 03/10/23 03/23/23 Unknown Rx salmeterol 50 mcg/dose blister 2 inh inhalation BID #60 ea 03/25/23 Unknown Rx powder for inhalation (Serevent Diskus) tiotropium bromide 1.25 2 puff inhalation DAILY #4 grams 03/25/23 Unknown Rx mcg/actuation mist for inhalation (Spiriva Respimat) Allergies Allergy/AdvReac Type Severity Reaction Status Date / Time No Known Allergies Allergy Verified 03/23/23 15:23 PFSH Acute PFSH: Medical History Acute and chronic respiratory failure with hypoxia Acute exacerbation of chronic obstructive airways disease Atrial fibrillation Atrial fibrillation with RVR COPD (chronic obstructive pulmonary disease) Hyperlipidemia Rib deformity Surgical History History of colon surgery Family History Other CAD (coronary artery disease) Hypertension Lung disease Denies family history of Diabetes Clotting disorder Dementia Hyperlipidemia Psychiatric illness Chronic kidney disease (CKD) Anesthesia complication Bleeding disorder Cancer Stroke Social History Smoking and tobacco status: current every day smoker cigarettes Packs smoked per day: 0.5 Alcohol intake: former Substance/Drug Use: never Lives independently: Yes Current occupational status: disabled Current gender identity: Male Special jeri needs: No Agree to transfusion: Yes Vitals/I&O/Wt Last Vital Signs Temp 98.7 F 03/31/23 23:51 Pulse 99 04/01/23 01:30 Resp 18 04/01/23 01:30 BP 132/78 04/01/23 01:30 Pulse Ox 91 04/01/23 01:30 O2 Del Method BiPAP 04/01/23 01:30 O2 Flow Rate 6 03/31/23 23:51 FiO2 45 04/01/23 01:03 Weight last 48 hrs Weight 124.738 kg Physical Exam Narrative: General: Moaning on BiPAP at this time, unable to provide a history. No acute respiratory distress. HEENT: Normocephalic, atraumatic, EOMI, breathing comfortably on BiPAP. Cardio: Regular rate rhythm, normal S1-S2, Respiratory: Rhonchi diffusely throughout lung bonilla. GI: Abdomen soft, nontender, nondistended, bowel sounds + Extremities: 1+ pitting edema bilateral lower extremities Data 04/01/23 00:58 03/31/23 00:58 A&P Assessment and plan (1) Respiratory failure with hypoxia and hypercapnia: Qualifiers: Chronicity: acute on chronic Qualified Code(s): J96.21 - Acute and chronic respiratory failure with hypoxia; J96.22 - Acute and chronic respiratory failure with hypercapnia (2) COPD exacerbation: (3) Moderate tobacco use disorder: (4) Bladder incontinence: Qualifiers: Urinary Incontinence type: mixed stress and urge incontinence Qualified Code(s): N39.46 - Mixed incontinence (5) Lower extremity edema: (6) End stage COPD: (7) (HFpEF) heart failure with preserved ejection fraction: Qualifiers: Heart failure chronicity: chronic Qualified Code(s): I50.32 - Chronic diastolic (congestive) heart failure (8) Afib: Qualifiers: Atrial fibrillation type: longstanding persistent Qualified Code(s): I48.11 - Longstanding persistent atrial fibrillation Plan #COPD exacerbation/CO2 narcosis acute hypoxic respiratory failure requiring BiPAP #Hyperlipidemia #Atrial fibrillation #Chronic congestive heart failure #Altered mental status secondary to above ? DuoNeb every 6 hour scheduled ? Continue BiPAP ? Repeat ABG ? Initial troponin 38, await 2-hour 6-hour troponin. ? Check echocardiogram ? We will have to complete medication creatinine association. ? Continue on diltiazem 180 every morning. I am ordering some medications based on his previous discharge summary ? Continue with scheduled Lasix 40 IV daily ? Check electrolytes daily ? Check BMP daily ? Check magnesium, phosphorus, CBC, BMP in a.m. ? Check sputum culture Gram stain. ? Leukocytosis WBC 18.1. Possibly stress response versus true underlying infect ion. Will check procalcitonin, UA, urine culture, sputum Gram stain culture ? Check lactic acid ? Check hemoglobin A1c ? Check TSH ? EKG shows rate controlled A-fib. ? Chest x-ray reviewed. Possible venous congestion present with cardiomegaly. No focal pneumonia ? We will check chest CT without contrast. Check Vitamin B12, ammonia FUll Code DVT PPX: Heparin sub c BID Attestations Medical Necessity Statement*: > 2 midnight stay for management of COPD exacerbation and CHF Diagnoses Respiratory failure with hypoxia and hypercapnia J96.21; J96.22 Chronicity: acute on chronic COPD exacerbation J44.1 Moderate tobacco use disorder F17.200 Bladder incontinence N39.46 Urinary Incontinence type: mixed stress and urge incontinence Lower extremity edema R60.0 End stage COPD J44.9 (HFpEF) heart failure with preserved ejection fraction I50.32 Heart failure chronicity: chronic Afib I48.11 Atrial fibrillation type: longstanding persistent
[2023-04-01 03:00] LABS: Troponin 5 2HR 41.09 ng/L (0-15)
[2023-04-01 03:16] LABS: Troponin 5 2HR Delta 3.09 ABS# (0-10)
[2023-04-01] MEDS: heparin 5,000 unit/mL INJ 1 mL 5000 UNIT SUBCUT (03:36)
[2023-04-01 03:41] LABS: Lactic Sepsis W/Reflex 3.2 mmol/L (0.5-2.2)
[2023-04-01 03:51] LABS: Procalcitonin 1.38 ng/mL (0-0.5); Thyroid Stimulating Hormone 3.65 uIU/mL (0.27-4.20)
[2023-04-01 04:08] LABS: Estmated Average Glucose 137; Hemoglobin A1C 6.4 % (4.0-6.0)
[2023-04-01 05:15] LABS: Reflex Lactate Order REFLEX LACTIC ORDERD
--- NOTE | 2023-04-01 05:54 | USCV_ITS ---
Gareth Pickering Age: 62 Gender: M : 1960 Exam Date: 04/01/2023 07:57 Ordering Phys: Oriana Rosario MD Technologist: CONCHIS Exam Location[place] [facility] [place] Indication: CHRONIC HEART FAILURE BP: 116 / 66 HR: 67 Rhythm: Atrial fibrillation Technical Quality: Poor secondary to COPD MEASUREMENTS (Male / Female) Normal Values 2D ECHO LVOT Diameter 2.0 cm LA Diameter 4.4 cm LA Width 3.9 cm LA Height 6.0 cm RA Width 3.1 cm RA Height 6.8 cm Aorta at Sinotubular Diameter 3.1 cm M-MODE Aortic Annulus Diameter 3.7 cm LA Ao Ratio MM 1.2 MV E Point Septal Separation 0.6 cm DOPPLER AV Peak Velocity 104.0 cm/s LVOT Peak Velocity 79.0 cm/s AV Area Cont Eq vti 2.6 cm squared AV Area Cont Eq pk 2.4 cm squared MV Peak Velocity 98.0 cm/s MV Area PHT 3.5 cm squared MV E' Velocity 61.0 cm/s TR Peak Velocity 215.4 cm/s TR Peak Gradient 18.6 mmHg TR Mean Velocity 185.6 cm/s TR Mean Gradient 13.8 mmHg TR Velocity Time Integral 58.8 cm TV Peak E Velocity 76.0 cm/s Right Atrial Pressure 8.0 mmHg Pulmonary Artery Systolic Pressu 26.6 mmHg PV Peak Velocity 83.0 cm/s FINDINGS Left Ventricle The ventricle is poorly seen due to COPD. It appears grossly to be normal in size. Ejection fraction cannot be specifically determined but it appears to be at least lower limit of normal. Wall motion disturbances and diastolic dysfunction cannot be determined. Right Ventricle Moderately increased right ventricular size. Mildly decreased right ventricular systolic function. Normal right ventricular systolic pressure. Right Atrium Moderately increased right atrial size. Left Atrium Mildly increased left atrial size. Mitral Valve Mitral valve poorly seen. No obvious mitral regurgitation Aortic Valve Aortic valve poorly seen. Tricuspid Valve Tricuspid valve poorly seen. Pulmonic Valve Pulmonic valve not seen. Pericardium Normal pericardium without effusion. Aorta Aorta poorly seen. IVC Inferior vena cava not seen. CONCLUSIONS The ventricle is poorly seen due to COPD. It appears grossly to be normal in size. Ejection fraction cannot be specifically determined but it appears to be at least lower limit of normal. Wall motion disturbances and diastolic dysfunction cannot be determined. Moderately increased right ventricular size. Mildly decreased right ventricular systolic function. Normal right ventricular systolic pressure. Moderately increased right atrial size. Mildly increased left atrial size. The previous study was done in September of this year. Noted previously was very mild pulmonary artery hypertension not noted on this study however there was no adequate evaluation of the tricuspid regurgitation jet. Otherwise the study has not changed. Dr. Mariusz Martínez MD (Electronically Signed) Final Date: 01 April 2023 13:56 S
[2023-04-01 06:09] LABS: Alveolar-Arterial Oxygen Gradi 34.6 mmHg (5-10); Arterial Blood Gas Hematocrit 42.9 % (42-52); Base Excess ABG 3.1 mmol/L (-2.0-2.0); Blood Gas Allen Test Pos; Blood Gas Operator Identificat WALCI; Blood Gas Sample Site Radial, right; Blood Gas Sample Type Arterial; Carboxyhemoglobin 1.7 %THgb (0.4-20.1); HCO3 ABG 31.6 mmol/L (22-26); HGB O2 Sat 94.2 % (95-100); Ionized Calcium Level - ABG 1.3 mmol/L (1.1-1.4); Methemoglobin 0.4 % (0.4-1.5); Oxygen Device BIPAP; Oxygen Saturation ABG 96.2; PO2 ABG 83.7 mmHg (80.0-100.0); Potassium Level - ABG 3.9 mmol/L (3.5-5.0)
[2023-04-01 06:10] LABS: ABG PCO2 64.8 mmHg (35-45)
--- NOTE | 2023-04-01 06:17 | CT_ITS ---
WS: [id number] CT scan of the chest without IV contrast, additional two-dimensional coronal and sagittal reconstruct ion was performed. 04/01/2023 Clinical Data: r/o pneumonia Comparison: CT chest, 11/12/2022 DLP: 601.[address] scans at [facility] use at least one of these dose optimization techniques: automated e xposure control; mA and/or kV adjustment per patient size (includes targeted exams where dose is matc hed to clinical indication); or iterative reconstruction. Findings: No nodules or masses are seen. The heart size is enlarged with no pericardial effusion. There is inte rstitial change throughout both lungs. There are small bibasilar pleural effusions. The pulmonary art erial system and thoracic aorta demonstrate no abnormalities or dilatations. There is no axillary or significant mediastinal adenopathy. There are plate and screw repairs of upper left rib fractures. The upper abdomen shows pericholecystic fluid and perisplenic fluid. The liver shape is partly visual ized and shows no cysts or masses. No gallstones are seen. There is minimal enlargement of the left a drenal gland. The superior left kidney is unremarkable. The pancreas is normal. CT/CT chest wo con [id number] Impression: 1. Interstitial change throughout the lungs which remains the same. 2. Cardiomegaly 3. Small bilateral pleural effusions 4. Minimal pericholecystic and perisplenic fluid.
--- NOTE | 2023-04-01 06:34 | ECG_ITS ---
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 Measurements Intervals [place] Rate: 79 P: 0 OH: 0 QRS: 72 QRSD: 106 T: 31 QT: 358 QTc: 413 Interpretive Statements ATRIAL FIBRILLATION LOW QRS VOLTAGE IN PRECORDIAL LEADS [QRS DEFLECTION < 1.0 mV IN CHEST LEADS] INCOMPLETE RIGHT BUNDLE BRANCH BLOCK [90+ ms QRS DURATION, TERMINAL R IN V1/V2, 40+ ms S IN I/aVL/V4/V5/V6] POSSIBLE ANTERIOR MYOCARDIAL INFARCTION , OF INDETERMINATE AGE [30 ms Q WAVE IN V3/V4, OR R < 0.2 mV IN V4] Compared to ECG 04/01/2023 02:02:31 No significant changes Electronically Signed On 04-01-2023 7:58:55 CDT by Mario Hanson M.D. [email or web address]
[2023-04-01 07:09] LABS: Vitamin B12 1922 pg/mL (232-1245)
--- NOTE | 2023-04-01 09:14 | PC.PHAR ---
Addendum entered by Nisha Nix 04/01/23 12:33: PT STATES HE GETS HIS ELIQUIS 5MG BID MAILED TO HIM FROM THE COMPANY-PT STATES HE TAKES TORSEMIDE 20-40MG DAILY RX FILLED 03/10/23 30D/S 60MG QAM FOR 5 DAYS THEN 40MG DAILY-PT STATES HE IS OUT OF HIS NYSTATIN CREAM MAYBE EMPTY-PT STATES HE MAYBE OUT OF SOME OF HIS INHALERS Original Note: PT UNABLE TO VERIFY MEDICATIONS-CALLED BOTH CONTACTS [facility] [phone] AND [facility] [phone] NO ANSWER ON EITHER PERSON-MEDICATIONS ENTERED ARE FROM WHAT EXT MED HISTORY SHOWS-LAST FILLED DATES ARE IN THE PHARMACY COMMENTS-[facility] STATES THEY LAST FILLED ELIQUIS 5MG BID 11/15/22 30D/S NO REFILLS UNABLE TO VERIFY IF PT STILL TAKING -
--- NOTE | 2023-04-01 09:31 | PC.NURSE ---
PATIENT IS REFUSING BLOOD DRAW. PRODUCT MGR REQUESTED BLOOD DRAW. NURSE REQUESTED BLOOD DRAW AND TRIED TO PULL FROM ESTABLISHED IV. IV UNABLE TO DRAW. PATIENT STATED YOU'RE NOT TAKING ANY MORE BLOOD FROM ME. DR HORNE NOTIFIED.
--- NOTE | 2023-04-01 11:10 | PC.NURSE ---
REPORT WAS CALLED BY AMY RICHMOND TO C[facility] FLOOR, ER HOLD GILBERTO
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
--- NOTE | 2023-04-01 12:31 | PC.NURSE ---
PT REQUESTED TO LEAVE AMA AGAIN, THIS TIME NOT VIOLENTLY. HUMZA WAS NOTIFIED AND HE WAS OK WITH HIM LEAVING. I WENT TO SIGN PT OUT AND REMOVE IV AND FRIAS AND PT STATED THAT IF HE STILL HAD HIS IV HE WANTED TO STAY. PT IS NOW OK WITH GOING TO CSU.
[2023-04-01] MEDS: LORazepam 2 mg/mL INJ 1 mL IVP (16:34)
--- NOTE | 2023-04-01 17:11 | PC.NURSE ---
Patient is very resistant to care. Patient refused heparin subQ, physician notified.
--- NOTE | 2023-04-01 19:30 | PC.NURSE ---
Commercial Door Installer contacted to request ICU/ER nurse to attempt IV on patient.
[2023-04-01 20:23] LABS: Glucose Point of Care 189 mg/dL (70-110)
--- NOTE | 2023-04-01 20:30 | PC.NURSE ---
ICU nurse unable to obtain IV access after multiple attempts. Hospitalist, Dr. Rosario, notified of lack of IV access. Order received for PICC line. contingents supervisor contacted for PICC order.
[2023-04-01] MEDS: albuterol 2.5 mg/3 mL Neb INHALATION (21:25)
[2023-04-01 23:08] LABS: ABG PCO2 58.2 mmHg (35-45); Arterial Blood Gas Hematocrit 43.5 % (42-52); Base Excess ABG 8.8 mmol/L (-2.0-2.0); Blood Gas Allen Test Pos; Blood Gas Sample Site Radial, right; Blood Gas Sample Type Arterial; HCO3 ABG 35.9 mmol/L (22-26); Oxygen Device BIPAP; PO2 ABG 75.7 mmHg (80.0-100.0)
[2023-04-01] MEDS: OLANZapine 10 mg VIAL 2.5 MG IM (23:48)
[2023-04-02] VITALS (16 sets, daily range): BP systolic 100–111; BP diastolic 60–77; PULSE 110–148; RESP 14–28; TEMP 36.4–37.8; O2SAT 90–100
--- NOTE | 2023-04-02 00:19 | XRR_ITS ---
PROCEDURE INFORMATION: Exam: XR Chest Exam date and time: 04/02/2023 12:26 AM Age: 62 years old Clinical indication: Device placement; Prior surgery; Surgery date: 6+ months; Surgery type: Costal fixatio; Patient HX: Check S/P RT sided picc; Additional info: Confirm picc placement TECHNIQUE: Imaging protocol: Radiologic exam of the chest. Views: 1 view. COMPARISON: CT chest [facility] [id number] 04/01/2023 7:48 AM FINDINGS: Tubes, catheters and devices: Right PICC line tip over the atrial caval junction. Lungs: Unremarkable. No consolidation. Pleural spaces: Unremarkable. No pleural effusion. No pneumothorax. Heart/Mediastinum: Unremarkable. No cardiomegaly. Bones/joints: Stable metallic fixation of left posterolateral ribs. XR/XR chest 1V portable [id number] IMPRESSION: 1. Right PICC line tip over the atrial caval junction. 2. Mild cardiomegaly.
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
[2023-04-02] MEDS: cefTRIAXone 1,000 MG in sodium chloride 0.9% (plus) 50 ML 100 MG IV (01:21)
[2023-04-02 03:37] LABS: Hematocrit 41.9 % (42.0-52.0); Hemoglobin 12.8 g/dL (11.7-16.6); Mean Corpuscular HGB Conc 30.5 g/dL (30.0-36.0); Mean Corpuscular Hemoglobin 27.6 pg (28.0-34.0); Mean Corpuscular Volume 90.3 fl (80-94); Mean Platelet Volume 9.8 fL (7.4-10.4); Platelet Count 231 10^3/cmm (130-400); Red Blood Count 4.64 10^6/uL (4.1-5.3); Red Cell Distribution Width 14.9 % (12.1-15.1); White Blood Count 19.1 10^3/uL (4.0-10.0)
[2023-04-02 04:00] LABS: Absolute Segmented Neutrophil 15.1 10/cmm (1.6-7.1); Band Neutrophils Absolute 3.4 10^3/cmm (0.0-1.2); Eosinophils 0 %; Lymphocytes 2 %; Lymphocytes Absolute 0.4 10^3/cmm (1.2-3.4); Monocytes Absolute 0.2 10^3/cmm (0.1-0.6); Segmented Neutrophils 79 %; Total Cells Counted 100 (0-100)
[2023-04-02 04:01] LABS: Absolute Neutrophil 18.5 10^3/cmm (1.4-6.5); Platelet Estimate Normal (Normal); Toxic Vacuolation TRACE
[2023-04-02 04:02] LABS: Anisocytosis 1+; Spherocytes Trace
[2023-04-02] MEDS: dilTIAZem 5 mg/mL SDV 5 mL IVP (04:05)
[2023-04-02 04:21] LABS: Anion Gap 7.6 (5-19); Blood Urea Nitrogen 24 mg/dL (8-23); Calcium 9.3 mg/dL (8.5-10.5); Carbon Dioxide 35 mmol/L (22-29); Chloride 100 mmol/L (98-107); Glucose 150 mg/dL (65-115); Magnesium 1.7 mg/dL (1.7-2.3); Osmolality Calculated 293 mOsm/kg (285-295); Phosphorus 1.2 mg/dL (2.5-4.5); Potassium 4.6 mmol/L (3.5-5.1); Sodium 138 mmol/L (136-145)
[2023-04-02] MEDS: FUROsemide 10 mg/mL SDV 4mL 40 MG IVP (05:30)
[2023-04-02 06:32] LABS: Glucose Point of Care 116 mg/dL (70-110)
--- NOTE | 2023-04-02 08:39 | CTR_ITS ---
PROCEDURE INFORMATION: Exam: CT Right Lower Extremity Without Contrast; Lower Leg Exam date and time: 04/02/2023 12:38 PM Age: 62 years old Clinical indication: Edema and swelling, leg or foot; No, it is generalized; Additional info: R/O abscess TECHNIQUE: Imaging protocol: CT of the right lower extremity without contrast was performed. Exam focused on the lower leg. Radiation optimization: All CT scans at this facility use at least one of these dose optimization techniques: automated exposure control; mA and/or kV adjustment per patient size (includes targeted exams where dose is matched to clinical indication); or iterative reconstruction. REPORTING DATA: Count of CT and Cardiac NM exams in prior 12 months: This patient has received 3 known CTs and 0 known cardiac nuclear medicine studies in the 12 months prior to the current study. COMPARISON: No relevant prior studies available. RADIATION DOSE METRICS: Total DLP (mGy-cm): 500.23 FINDINGS: Bones/joints: No acute fracture or dislocation. Small knee joint effusion. Soft tissues: Mild diffuse subcutaneous edema and areas of skin thickening. No organized fluid collection. Other findings: Motion artifact of the lower leg and foot. CT/CT lower leg RT w con [id number] IMPRESSION: 1. Mild soft tissue swelling without abscess. 2. Small right knee joint effusion without acute fracture.
--- NOTE | 2023-04-02 08:39 | CTR_ITS ---
PROCEDURE INFORMATION: Exam: CT Left Lower Extremity With Contrast; Lower Leg Exam date and time: 04/02/2023 12:38 PM Age: 62 years old Clinical indication: Edema and swelling, leg or foot; No, it is generalized; Additional info: R/O abscess TECHNIQUE: Imaging protocol: CT of the left lower extremity with intravenous contrast was performed. Exam focused on the lower leg. Radiation optimization: All CT scans at this facility use at least one of these dose optimization techniques: automated exposure control; mA and/or kV adjustment per patient size (includes targeted exams where dose is matched to clinical indication); or iterative reconstruction. Contrast material: OMNI 350; Contrast volume: 100 ml; Contrast route: INTRAVENOUS (IV); REPORTING DATA: Count of CT and Cardiac NM exams in prior 12 months: This patient has received 3 known CTs and 0 known cardiac nuclear medicine studies in the 12 months prior to the current study. COMPARISON: No relevant prior studies available. RADIATION DOSE METRICS: Total DLP (mGy-cm): 501 FINDINGS: Bones/joints: No acute fracture or dislocation. Small knee joint effusion. Soft tissues: Diffuse subcutaneous edema and skin thickening. No rim enhancing fluid collection. CT/CT lower leg LT w con [id number] IMPRESSION: 1. Soft tissue swelling without abscess. 2. Small left knee joint effusion without acute fracture.
[2023-04-02] MEDS: dilTIAZem 100 MG in sodium chloride 0.9% (add-van) 100 ML 10 MG IV (09:39)
[2023-04-02] MEDS: apixaban 5 mg Tablet PO ×2 (09:40→18:29)
[2023-04-02] MEDS: dilTIAZem ER (24HR) 180 mg Capsule PO (09:40)
[2023-04-02] MEDS: doxycycline 100 MG in sodium chloride 0.9% (plus) 100 ML IV ×2 (10:10→20:23)
[2023-04-02] MEDS: piperacillin-tazobactam 3.375 GM in sodium chloride 0.9% (plus) 50 ML IV ×2 (11:12→20:19)
[2023-04-02 12:10] LABS: Glucose Point of Care 142 mg/dL (70-110)
[2023-04-02] MEDS: iohexol 350 mg/mL 500 mL Btl (per mL) IV (12:57)
[2023-04-02] MEDS: sodium chloride 0.9% 500 ML IV (13:05)
[2023-04-02] MEDS: ipratropium 0.5 mg/2.5 mL Neb INHALATION ×2 (13:33→19:25)
[2023-04-02] MEDS: levalbuterol 0.63 mg/3 mL Neb INHALATION ×2 (13:33→19:25)
[2023-04-02] MEDS: sodium chloride 0.9% 1,000 ML 50 ML IV (14:08)
--- NOTE | 2023-04-02 14:25 | P.PN_ITS ---
Subjective Subjective: Patient had eventful last night, he was extremely agitated, received olanzapine to calm him down, overnight PICC line was also placed, he also went into A-fib with RVR overnight, requiring initiation of Cardizem drip, after receiving 5 mg IV Cardizem push, significant urine output, close to 5.5 L, patient was hypotensive with, requiring the need for fluid bolus, as well as he was a started on maintenance IV fluid, Lasix has been kept on hold, Cardizem drip had to briefly turned off, has been restarted back, post IV fluid bolus heart rate is slightly improved, lateral lower extremity CT with contrast was also done, to evaluate further the bilateral lower extremity swelling and redness to rule out any possible abscess as well as possible osteo, suggestive of cellulitis. Medications: Medication Review Details: Generic Name Dose Route Start Last Admin Trade Name Freq PRN Reason Stop Dose Admin Apixaban 5 mg 04/01/23 18:00 04/02/23 09:40 Apixaban 5 Mg Ta blet PO 5 mg BID RUFINO Administration Dexamethasone 6 mg 04/01/23 16:30 04/01/23 15:51 Dexamethasone 10 Mg/Ml Inj IVP 6 mg Q24H RUFINO Administration Diltiazem HCl 180 mg 04/02/23 09:00 04/02/23 09:40 Diltiazem Er (24 hr) 180 Mg Capsule PO 180 mg DAILY RUFINO Administration Furosemide 40 mg 04/01/23 06:00 04/02/23 05:30 Furosemide 10 Mg /Ml Sdv 4ml IVP 40 mg Q24H RUFINO Administration Diltiazem HCl 50 m g/ Sodium 50 mls @ 0 mls/hr 04/02/23 04:15 04/02/23 10:07 Chloride IV Infused .Q0M RUFINO Titration Protocol Per Protocol Diltiazem HCl 100 mg/ Sodium 100 mls @ 0 mls/h r 04/02/23 08:30 04/02/23 14:15 Chloride IV 5 mg/hr .Q0M RUFINO 5 mls/hr Titration Protocol Per Protocol Piperacillin Sod/T azobactam 50 mls @ 12.5 mls /hr 04/02/23 08:45 04/02/23 11:12 Sod 3.375 gm/ So dium Chloride IV 12.5 mls/hr Q8H RUFINO Administration Protocol Doxycycline Hyclat e 100 mg/ 100 mls @ 100 mls /hr 04/02/23 09:00 04/02/23 11:14 Sodium Chloride IV Infused Q12H RUFINO Infusion Protocol Sodium Chloride 1,000 mls @ 50 ml s/hr 04/02/23 13:00 04/02/23 14:08 Sodium Chloride 0.9% IV 50 mls/hr .Q20H RUFINO Administration Ipratropium Bromid e 0.5 mg 04/02/23 14:00 04/02/23 13:33 Ipratropium 0.5 Mg/2.5 Ml Neb INHALATION 0.5 mg Q6H.RESP RUFINO Administration Levalbuterol HCl 0.63 mg 04/02/23 14:00 04/02/23 13:33 Levalbuterol 0.6 3 Mg/3 Ml Neb INHALATION 0.63 mg Q6H.RESP RUFINO Administration Vitals/I&O/Wt Last Vital Signs Temp 99.0 F 04/02/23 11:41 Pulse 111 H 04/02/23 13:42 Resp 18 04/02/23 13:34 BP 100/77 04/02/23 11:41 Pulse Ox 96 04/02/23 13:34 O2 Del Method Nasal Cannula 04/02/23 13:34 O2 Flow Rate 5 04/02/23 13:34 FiO2 30 04/02/23 11:31 04/01/23 04/02/23 04/02/23 22:59 06:59 14:59 Intake Total 250 / 250 2.167 / 880.620 7577.582 / 1582.582 Output Total 2100 / 2900 550 / 3450 3380 / 3380 Balance -1850 / -2650 -547.833 / -3197.833 -1797.418 / -1797.418 Weight last 48 hrs Weight 124.738 kg Physical Exam Narrative: Patient is extremely drowsy and sleepy in the morning, HENMT: COMMON NORMALS: normocephalic and atraumatic HEAD & SCALP: normocephalic and atraumatic Resp: COMMON NORMALS: clear to auscultation bilaterally AUSCULTATION: clear to auscultation bilaterally GI: COMMON NORMALS: Normal to inspection, nondistended, normoactive bowel sounds present, Soft to palpation, non-tender, No hepatosplenomegaly present and no masses AUSCULTATION: Yes normoactive bowel sounds PALPATION: Yes Soft to palpation and Yes No hepatosplenomegaly present RECTAL EXAM: Yes deferred Extremity: NARRATIVE EXTREMITY EXAM: Bilateral lower extremity significant redness, and mild swelling present. Urinary Catheter Management: Knight: Cath Placed During This Visit: yes Reason for Continuing Indwelling Catheter: Accurate Measurement of Urinary Output in Critically Ill Patients Urinary Catheter Date of Insertion: 04/01/23 Urinary Catheter Time of Insertion: 06:06 Data 04/02/23 02:47 04/02/23 03:56 Micro: Microbiology 04/01/23 06:25 Urine Culture - Preliminary Urine Catheterized A&P Assessment and plan (1) Respiratory failure with hypoxia and hypercapnia: Qualifiers: Chronicity: acute on chronic Qualified Code(s): J96.21 - Acute and chronic respiratory failure with hypoxia; J96.22 - Acute and chronic respiratory failure with hypercapnia (2) COPD exacerbation: (3) Moderate tobacco use disorder: (4) Bladder incontinence: Qualifiers: Urinary Incontinence type: mixed stress and urge incontinence Qualified Code(s): N39.46 - Mixed incontinence (5) Lower extremity edema: (6) End stage COPD: (7) (HFpEF) heart failure with preserved ejection fraction: Qualifiers: Heart failure chronicity: chronic Qualified Code(s): I50.32 - Chronic diastolic (congestive) heart failure (8) Afib: Qualifiers: Atrial fibrillation type: longstanding persistent Qualified Code(s): I4 8.11 - Longstanding persistent atrial fibrillation Plan 62-year-old male with past medical history of HFpEF, atrial fibrillation on Eliquis, COPD, came in with chief complaint ?shortness of breath and chest pain. He was admitted for the management. Assessment: Acute metabolic encephalopathy secondary to acute on chronic hypercapnic hypoxic respiratory failure: ABG on admission: Showed pH of 7.3, PCO2: 71 , PO2: 56, FiO2 60% CT chest without contrast: There is interstitial change throughout both lungs. There are small bibasilar pleural effusions. Currently patient is on BiPAP, DuoNebs, supplemental oxygen as needed, ABG is being monitored. He was initially also on Lasix IV, but has been kept on hold for now as the patient is dry. COPD exacerbation: On IV dexamethasone, DuoNebs BiPAP A-fib with RVR: Was started on Cardizem drip, on Eliquis, Continue telemetry monitoring. Currently patient blood pressure is slightly soft, requiring the need for IV fluids. We will continue with careful gentle IV hydration as patient likely has biventricular failure, with moderately feeling RV systolic function. Bilateral lower extremity cellulitis: Bilateral lower extremity CT with contrast done which showed: Soft tissue swelling without abscess, small knee joint effusion. Currently is empirically on Zosyn, patient is also on doxycycline. Patient also has abdominal healing ulcer: Antibiotic as above. Follow tick panel Currently empirically on Doxycycline HFpEF : Currently compensated initially he was on IV Lasix which has been kept on hold for now Most recent 2D echo done during this hospital stay?has shown: Good quality echo: Has shown possibly normal EF, Moderate increase in RV size and mildly decreased RV systolic function. Patient also has a 2D echo in the month of September which showed an EF of 59%, proBNP:6170 hypophosphatemia: Patient will receive IV K-Phos monitor serum phosphorus. Possible diabetes: His current HbA1c is 6.4: Monitor blood sugar for now, will repeat HbA1c in some time. FUll Code DVT PPX: Heparin sub BID Attestations Medical Necessity Statement*: Needs to be in hospital for the management A-fib with RVR. Coding Level of Care Code Acute Code for Chg Fwd Diagnoses Respiratory failure with hypoxia and hypercapnia J96.21; J96.22 Chronicity: acute on chronic COPD exacerbation J44.1 Moderate tobacco use disorder F17.200 Bladder incontinence N39.46 Urinary Incontinence type: mixed stress and urge incontinence Lower extremity edema R60.0 End stage COPD J44.9 (HFpEF) heart failure with preserved ejection fraction I50.32 Heart failure chronicity: chronic Afib I48.11 Atrial fibrillation type: longstanding persistent
[2023-04-02] MEDS: potassium phosphate (mEq K) 40 MEQ in sodium chloride 0.9% (100 ml) 100 ML 27.25 MEQ IV (15:07)
[2023-04-02] MEDS: dexamethasone 10 mg/mL INJ 6 MG IVP (16:14)
[2023-04-02 17:00] LABS: Glucose Point of Care 122 mg/dL (70-110)
[2023-04-02] MEDS: LORazepam 2 mg/mL INJ 1 mL IVP (17:58)
--- NOTE | 2023-04-02 18:00 | PC.NURSE ---
Behavior aggressiveness and anger Pt has been yelling and telling staff that we still his money. He has 597$ as he reported. very upset that we are not feeding him. he has been coughing and very impulsive in eating all the time. he keeps saying i am hungry. feed me.
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
[2023-04-02 21:02] LABS: Glucose Point of Care 164 mg/dL (70-110)
[2023-04-03] VITALS (18 sets, daily range): BP systolic 95–119; BP diastolic 60–77; PULSE 95–126; RESP 16–30; TEMP 36.9–37; O2SAT 90–96
[2023-04-03] MEDS: levalbuterol 0.63 mg/3 mL Neb INHALATION ×4 (01:29→20:14)
[2023-04-03] MEDS: ipratropium 0.5 mg/2.5 mL Neb INHALATION ×4 (01:29→20:14)
[2023-04-03] MEDS: dilTIAZem 100 MG in sodium chloride 0.9% (add-van) 100 ML IV (02:40)
[2023-04-03 03:15] LABS: Basophils % 0.2 %; Hematocrit 38.1 % (42.0-52.0); Hemoglobin 11.6 g/dL (11.7-16.6); Lymphocytes # 0.3 10^3/uL (0.8-4.8); Lymphocytes % 1.4 %; Mean Corpuscular HGB Conc 30.4 g/dL (30.0-36.0); Mean Corpuscular Hemoglobin 27.4 pg (28.0-34.0); Mean Corpuscular Volume 90.1 fl (80-94); Mean Platelet Volume 9.9 fL (7.4-10.4); Monocytes # 0.3 10^3/uL (0.2-0.9); Monocytes % 1.5 %; Neutrophils # 17.26 10^3/uL (1.8-7.7); Neutrophils % 93.7 %; Nucleated Red Blood Cells % 0.2 %; Platelet Count 198 10^3/cmm (130-400); Red Blood Count 4.23 10^6/uL (4.1-5.3); Red Cell Distribution Width 15.1 % (12.1-15.1); White Blood Count 18.4 10^3/uL (4.0-10.0)
[2023-04-03 03:32] LABS: Phosphorus 1.3 mg/dL (2.5-4.5)
[2023-04-03 03:35] LABS: Alanine Aminotransferase 111 U/L (0-41); Alkaline Phosphatase 67 U/L (40-130); Blood Urea Nitrogen 20 mg/dL (8-23); Calcium 8.5 mg/dL (8.5-10.5); Carbon Dioxide 33 mmol/L (22-29); Chloride 98 mmol/L (98-107); Globulin 3.3 g/dL (1.3-4.6); Glomerular Filtration Rate 97.3 mL/min (90-130); Glucose 124 mg/dL (65-115); Osmolality Calculated 284 mOsm/kg (285-295); Sodium 135 mmol/L (136-145); Total Bilirubin 0.4 mg/dL (0.15-1.2); Total Protein 5.3 g/dL (6.6-8.7)
[2023-04-03 03:37] LABS: Anion Gap 8.3 (5-19); Aspartate Amino Transferase 83 U/L (0-40); Potassium 4.3 mmol/L (3.5-5.1)
[2023-04-03] MEDS: piperacillin-tazobactam 3.375 GM in sodium chloride 0.9% (plus) 50 ML IV ×3 (03:43→20:35)
[2023-04-03 06:21] LABS: Glucose Point of Care 173 mg/dL (70-110)
[2023-04-03] MEDS: acetaminophen 325 mg Tablet 650 MG PO (07:41)
[2023-04-03] MEDS: phosphorus 250 mg Tablet PO ×2 (07:41→17:26)
[2023-04-03] MEDS: apixaban 5 mg Tablet PO ×2 (07:52→17:26)
[2023-04-03] MEDS: ondansetron 2 mg/ML SDV 2 mL 4 MG IVP (07:53)
[2023-04-03] MEDS: LORazepam 2 mg/mL INJ 1 mL IVP ×2 (07:53→19:13)
--- NOTE | 2023-04-03 07:53 | PC.NURSE ---
pt started to get verbally aggressive with using inappropriate and disrespectful words. would like us to keep giving him foods. pt was yelling and disturbing other pts. reoriented pt and calmly talk to him. He is telling that we are taking out his money and wants to go home. PRN Ativan given as ordered. Will monitor.
[2023-04-03] MEDS: doxycycline 100 MG in sodium chloride 0.9% (plus) 100 ML IV ×2 (10:01→20:35)
[2023-04-03] MEDS: sodium chloride 0.9% 1,000 ML 50 ML IV (10:04)
--- NOTE | 2023-04-03 12:28 | PC.NURSE ---
Speech Therapy in room to help feed patient. Pt again has been asking again where is 597$. He said that, i feel like the hospital is robbing me. security and house sup are aware of the pt's report.
--- NOTE | 2023-04-03 14:24 | P.PN_ITS ---
Subjective Subjective: Patient was seen and examined this morning, heart rate is better controlled, currently he is on 5 of Cardizem, blood pressure is also improving, robust urine output, patient continued to have intermittent episodes of agitation, also had low-grade: Temp last night: Noted Tmax of 100.0, Medications: Medication Review Details: Generic Name Dose Route Start Last Admin Trade Name Freq PRN Reason Stop Dose Admin Acetaminophen 650 mg 04/01/23 02:34 04/03/23 07:41 Acetaminophen 32 5 Mg Tablet PO 650 mg Q6H PRN Administration Mild/Mod Pain Or Temp >/= 101 Apixaban 5 mg 04/01/23 18:00 04/03/23 07:52 Apixaban 5 Mg Ta blet PO 5 mg BID RUFINO Administration Dexamethasone 6 mg 04/01/23 16:30 04/02/23 16:14 Dexamethasone 10 Mg/Ml Inj IVP 6 mg Q24H RUFINO Administration Diltiazem HCl 180 mg 04/02/23 09:00 04/02/23 09:40 Diltiazem Er (24 hr) 180 Mg Capsule PO 180 mg DAILY RUFINO Administration Furosemide 40 mg 04/01/23 06:00 04/02/23 05:30 Furosemide 10 Mg /Ml Sdv 4ml IVP 40 mg Q24H RUFINO Administration Diltiazem HCl 50 m g/ Sodium 50 mls @ 0 mls/hr 04/02/23 04:15 04/02/23 10:07 Chloride IV Infused .Q0M RUFINO Titration Protocol Per Protocol Diltiazem HCl 100 mg/ Sodium 100 mls @ 0 mls/h r 04/02/23 08:30 04/03/23 02:40 Chloride IV 5 mg/hr .Q0M RUFINO 5 mls/hr Administration Protocol Per Protocol Piperacillin Sod/T azobactam 50 mls @ 12.5 mls /hr 04/02/23 08:45 04/03/23 12:37 Sod 3.375 gm/ So dium Chloride IV 12.5 mls/hr Q8H RUFINO Administration Protocol Doxycycline Hyclat e 100 mg/ 100 mls @ 100 mls /hr 04/02/23 09:00 04/03/23 11:11 Sodium Chloride IV Infused Q12H RUFINO Infusion Protocol Sodium Chloride 1,000 mls @ 50 ml s/hr 04/02/23 13:00 04/03/23 10:04 Sodium Chloride 0.9% IV 50 mls/hr .Q20H RUFINO Administration Ipratropium Bromid e 0.5 mg 04/02/23 14:00 04/03/23 09:30 Ipratropium 0.5 Mg/2.5 Ml Neb INHALATION 0.5 mg Q6H.RESP RUFINO Administration Levalbuterol HCl 0.63 mg 04/02/23 14:00 04/03/23 09:30 Levalbuterol 0.6 3 Mg/3 Ml Neb INHALATION 0.63 mg Q6H.RESP RUFINO Administration Lorazepam 2 mg 04/02/23 08:40 04/03/23 07:53 Lorazepam 2 Mg/M l Inj 1 Ml IVP 2 mg Q4H PRN Administration ANXIETY Ondansetron HCl 4 mg 04/01/23 02:34 04/03/23 07:53 Ondansetron 2 Mg /Ml Sdv 2 Ml IVP 4 mg Q8H PRN Administration vomiting, or N/V if npo Potassium Phosphat e 250 mg 04/03/23 09:00 04/03/23 07:41 Phosphorus 250 M g Tablet PO 250 mg BID RUFINO Administration Vitals/I&O/Wt Last Vital Signs Temp 98.4 F 04/03/23 10:15 Pulse 97 04/03/23 11:31 Resp 18 04/03/23 11:31 BP 100/75 04/03/23 11:31 Pulse Ox 91 04/03/23 11:31 O2 Del Method BiPAP 04/03/23 11:31 O2 Flow Rate 4 04/03/23 09:30 FiO2 30 04/03/23 10:15 04/02/23 04/03/23 04/03/23 22:59 06:59 14:59 Intake Total 259.0909 / 1841.6729 412.083 / 2253.7559 1506.667 / 1506.667 Output Total 750 / 4130 0 / 4130 500 / 500 Balance -490.9091 / -2288.3271 412.083 / -1876.2441 1006.667 / 1006.667 Physical Exam Narrative: Patient is extremely drowsy and sleepy in the morning, HENMT: COMMON NORMALS: normocephalic and atraumatic HEAD & SCALP: normocephalic and atraumatic Resp: COMMON NORMALS: clear to auscultation bilaterally AUSCULTATION: clear to auscultation bilaterally GI: COMMON NORMALS: Normal to inspection, nondistended, normoactive bowel sounds present, Soft to palpation, non-tender, No hepatosplenomegaly present and no masses AUSCULTATION: Yes normoactive bowel sounds PALPATION: Yes Soft to palpation and Yes No hepatosplenomegaly present RECTAL EXAM: Yes deferred Extremity: NARRATIVE EXTREMITY EXAM: Bilateral lower extremity significant redness, and mild swelling present. 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; J96.22 - Acute and chronic respiratory failure with hypercapnia (2) COPD exacerbation: (3) Moderate tobacco use disorder: (4) Bladder incontinence: Qualifiers: Urinary Incontinence type: mixed stress and urge incontinence Qualified Code(s): N39.46 - Mixed incontinence (5) Lower extremity edema: (6) End stage COPD: (7) (HFpEF) heart failure with preserved ejection fraction: Qualifiers: Heart failure chronicity: chronic Qualified Code(s): I50.32 - Chronic diastolic (congestive) heart failure (8) Afib: Qualifiers: Atrial fibrillation type: longstanding persistent Qualified Code(s): I48.11 - Longstanding persistent atrial fibrillation Plan 62-year-old male with past medical history of HFpEF, atrial fibrillation on Eliquis, COPD, came in with chief complaint ?shortness of breath and chest pain. He was admitted for the management. Assessment: Acute metabolic encephalopathy secondary to acute on chronic hypercapnic hypoxic respiratory failure: ABG on admission: Showed pH of 7.3, PCO2: 71 , PO2: 56, FiO2 60% CT chest without contrast: There is interstitial change throughout both lungs. There are small bibasilar pleural effusions. Follow blood culture Follow urine culture Currently patient is on BiPAP, DuoNebs, supplemental oxygen as needed, ABG is being monitored. He was initially also on Lasix IV, but has been kept on hold for now as the patient is dry. COPD exacerbation: On IV dexamethasone, DuoNebs BiPAP Supplemental oxygen A-fib with RVR: Was started on Cardizem drip, on Eliquis, Continue telemetry monitoring. Currently patient blood pressure is slightly soft, requiring the need for IV fluids. We will continue with careful gentle IV hydration, in the setting of heart failure.. Bilateral lower extremity cellulitis: Bilateral lower extremity CT with contrast done which showed: Soft tissue swelling without abscess, small knee joint effusion. Currently is empirically on Zosyn, patient is also on doxycycline. Patient also has abdominal healing ulcer: Antibiotic as above. Follow tick panel Currently empirically on Doxycycline HFpEF : Currently compensated initially he was on IV Lasix which has been kept on hold for now Most recent 2D echo done during this hospital stay?has shown: Good quality echo: Has shown possibly normal EF, Moderate increase in RV size and mildly decreased RV systolic function. Patient also has a 2D echo in the month of September which showed an EF of 59%, proBNP:6170 hypophosphatemia: Has received IV K-Phos. Currently on p.o. phosphorus monitor serum phosphorus. Possible diabetes: His current HbA1c is 6.4: Monitor blood sugar for now, will repeat HbA1c in some time. FUll Code DVT PPX: Heparin sub BID Attestations Medical Necessity Statement*: Needs to be in hospital for A-fib with RVR. Coding Level of Care Code Acute Code for Chg Fwd Diagnoses Respiratory failure with hypoxia and hypercapnia J96.21; J96.22 Chronicity: acute on chronic COPD exacerbation J44.1 Moderate tobacco use disorder F17.200 Bladder incontinence N39.46 Urinary Incontinence type: mixed stress and urge incontinence Lower extremity edema R60.0 End stage COPD J44.9 (HFpEF) heart failure with preserved ejection fraction I50.32 Heart failure chronicity: chronic Afib I48.11 Atrial fibrillation type: longstanding persistent
[2023-04-03] MEDS: dexamethasone 10 mg/mL INJ 6 MG IVP (15:51)
[2023-04-03 17:17] LABS: Glucose Point of Care 137 mg/dL (70-110)
[2023-04-03 17:37] LABS: Ammonia 58 umol/L (16-60)
[2023-04-03 17:41] LABS: Reflex Lactate Order REFLEX LACTIC ORDERD
--- NOTE | 2023-04-03 18:03 | PC.NURSE ---
Pt when wakes up is yelling for food, HR-120s afib. Pt keeps saying he is hungry and thirsty. pt provided with tray, snacks, pudding and milk. Total assistance. when pt calms down and fall backs to sleep, HR down to 110s.
--- NOTE | 2023-04-03 19:12 | PC.NURSE ---
Patient screaming down the cole disturbing all patients. Ativan given as documented. Dr Prado on the floor presently and received a onetime verbal order for Geodon 10mg IM. RBVO
[2023-04-04] VITALS (17 sets, daily range): BP systolic 81–132; BP diastolic 63–89; PULSE 73–136; RESP 16–24; TEMP 35.9–36.4; O2SAT 90–97
[2023-04-04] MEDS: LORazepam 2 mg/mL INJ 1 mL IVP ×2 (00:59→06:02)
[2023-04-04] MEDS: ziprasidone 20 mg/mL SDV 10 MG IM ×2 (01:19→10:32)
--- NOTE | 2023-04-04 02:04 | PC.NURSE ---
Patient given Ativan at shift change for agitation. After medication was administered patient calmed and was cooperative with care, was resting in bed with eyes closed and appeared to be sleeping. Once patient woke up he began yelling, cursing at staff, demanding food, threatening to leave AMA, and accusing staff of stealing his $500. Multiple attempts to redirect were made. Code 10 was called. PRN Ativan was administered. Patient continued behaving inappropriately, yelling and threatening to leave. Patient was asked if he knew date, time, place, or person. He was oriented to place and person only. He became increasingly agitated, cursing at staff. PRN Geodon was administered. Patient was monitored, and redirected, until calmed. Pt connected to telemetry, BP and pulse monitored.
[2023-04-04] MEDS: piperacillin-tazobactam 3.375 GM in sodium chloride 0.9% (plus) 50 ML IV ×3 (04:56→23:15)
[2023-04-04 06:02] LABS: Alanine Aminotransferase 103 U/L (0-41); Albumin Level 2.1 g/dL (3.5-5.2); Alkaline Phosphatase 76 U/L (40-130); Anion Gap 15.8 (5-19); Aspartate Amino Transferase 64 U/L (0-40); Blood Urea Nitrogen 22 mg/dL (8-23); Calcium 8.8 mg/dL (8.5-10.5); Carbon Dioxide 35 mmol/L (22-29); Chloride 98 mmol/L (98-107); Globulin 4.2 g/dL (1.3-4.6); Glomerular Filtration Rate 113.5 mL/min (90-130); Glucose 110 mg/dL (65-115); Osmolality Calculated 302 mOsm/kg (285-295); Phosphorus 2.2 mg/dL (2.5-4.5); Potassium 4.8 mmol/L (3.5-5.1); Sodium 144 mmol/L (136-145); Total Bilirubin 0.2 mg/dL (0.15-1.2); Total Protein 6.3 g/dL (6.6-8.7)
--- NOTE | 2023-04-04 07:45 | PC.NURSE ---
Pt yelling wanting us to feed him and give him something to drink. HR increased to 120s to 130s when agitation started. Pt assisted in eating and drinking. Afterwards he falls back to sleep. When he wakes up again, pt stated we did not feed him. reoriented and redirected pt that we have been feeding him every 15 to 30 mins. He then started becoming angry that we are starving him. Nurse has been in room multiple times to assist him in feeding and drinking.
[2023-04-04] MEDS: levalbuterol 0.63 mg/3 mL Neb INHALATION ×2 (08:39→14:51)
[2023-04-04] MEDS: ipratropium 0.5 mg/2.5 mL Neb INHALATION ×2 (08:39→14:51)
[2023-04-04 08:59] LABS: Amphetamines Screen Urine Negative (Negative); Barbiturates Screen Urine Negative (Negative); Benzodiazepines Screen Urine Positive (Negative); Cocaine Screen Urine Negative (Negative); Opiate Screen Urine Negative (Negative); PCP Screen Urine Negative (Negative); THC Screen Urine Negative (Negative)
[2023-04-04] MEDS: apixaban 5 mg Tablet PO (09:11)
[2023-04-04] MEDS: phosphorus 250 mg Tablet PO (09:11)
[2023-04-04] MEDS: doxycycline 100 MG in sodium chloride 0.9% (plus) 100 ML IV (10:03)
--- NOTE | 2023-04-04 10:15 | PC.SLP ---
Patient not seen. No change in status. He has been yelling and screaming for various reasons.
[2023-04-04 10:34] LABS: Lyme AB Screen <0.90 index
[2023-04-04] MEDS: dexmedetomidine 400 MCG in sodium chloride 0.9% (100 ml) 100 ML IV (10:36)
[2023-04-04] MEDS: dilTIAZem 100 MG in sodium chloride 0.9% (add-van) 100 ML IV (11:08)
[2023-04-04 11:19] LABS: Glucose Point of Care 136 mg/dL (70-110)
[2023-04-04] MEDS: FUROsemide 10 mg/mL SDV 4mL 40 MG IVP (12:35)
[2023-04-04] MEDS: metoprolol tartrate 1 mg/1 mL SDV 5 mL 5 MG IVP (12:42)
[2023-04-04 13:31] LABS: ABG PCO2 58.9 mmHg (35-45); ABG PH Result 7.44 (7.35-7.45); Alveolar-Arterial Oxygen Gradi 11.2 mmHg (5-10); Arterial Blood Gas Hematocrit 42.4 % (42-52); Blood Gas Operator Identificat AMH; Blood Gas Sample Site Brachial, left; Blood Gas Sample Type Arterial; Carboxyhemoglobin 1.5 %THgb (0.4-20.1); HCO3 ABG 39.9 mmol/L (22-26); HGB O2 Sat 89.9 % (95-100); Ionized Calcium Level - ABG 1.4 mmol/L (1.1-1.4); Methemoglobin 0.3 % (0.4-1.5); Oxygen Device BIPAP; Oxygen Saturation ABG 91.6; PO2 ABG 56.5 mmHg (80.0-100.0); Potassium Level - ABG 4.7 mmol/L (3.5-5.0); Total Hemoglobin 13.8 g/dL (14-18)
[2023-04-04] MEDS: nicotine 14 mg Patch 1 PATCH TRANSDERMA (14:36)
--- NOTE | 2023-04-04 15:30 | PC.NURSE ---
Pt son and dgtr in law at bedside Doctor in room explaining the plan of care and treatments to the pt. Informed son on the pt's behaviour towards staff. Son verbalizes understanding of the plan of care and treatments regards on pt's heart failure decompensation and underlying infection that causes further treaments. dr trujillo discussed pt and son can withdraw treatments if they decided.
[2023-04-04 16:09] LABS: ABG PH Result 7.44 (7.35-7.45); Alveolar-Arterial Oxygen Gradi 28.2 mmHg (5-10); Arterial Blood Gas Hematocrit 40.9 % (42-52); Base Excess ABG 14.6 mmol/L (-2.0-2.0); Blood Gas Operator Identificat AMH; Blood Gas Sample Site Brachial, left; Blood Gas Sample Type Arterial; Carboxyhemoglobin 1.5 %THgb (0.4-20.1); HCO3 ABG 41.6 mmol/L (22-26); HGB O2 Sat 93.1 % (95-100); Ionized Calcium Level - ABG 1.3 mmol/L (1.1-1.4); Methemoglobin 0.3 % (0.4-1.5); Oxygen Device NC; Oxygen Saturation ABG 94.8; PO2 ABG 65.8 mmHg (80.0-100.0); Potassium Level - ABG 4.5 mmol/L (3.5-5.0); Total Hemoglobin 13.3 g/dL (14-18)
[2023-04-04 16:10] LABS: ABG PCO2 60.9 mmHg (35-45)
[2023-04-04] MEDS: vancomycin 1,750 MG/350 ML PIGGYBACK 233.33 MG IV (16:11)
[2023-04-04 16:23] LABS: Basophils # 0.1 10^3/uL (0.0-0.1); Basophils % 0.2 %; Hematocrit 43.3 % (42.0-52.0); Hemoglobin 12.8 g/dL (11.7-16.6); Lymphocytes # 0.3 10^3/uL (0.8-4.8); Lymphocytes % 1.3 %; Mean Corpuscular HGB Conc 29.6 g/dL (30.0-36.0); Mean Corpuscular Hemoglobin 27.7 pg (28.0-34.0); Mean Corpuscular Volume 93.7 fl (80-94); Monocytes # 0.5 10^3/uL (0.2-0.9); Monocytes % 2.4 %; Neutrophils # 20.29 10^3/uL (1.8-7.7); Neutrophils % 95.7 %; Nucleated Red Blood Cells # 0.1 /100WBC; Nucleated Red Blood Cells % 0.5 %; Platelet Count 213 10^3/cmm (130-400); Red Blood Count 4.62 10^6/uL (4.1-5.3); Red Cell Distribution Width 15.3 % (12.1-15.1); White Blood Count 21.2 10^3/uL (4.0-10.0)
[2023-04-04 16:47] LABS: Alanine Aminotransferase 99 U/L (0-41); Albumin Level 1.9 g/dL (3.5-5.2); Alkaline Phosphatase 80 U/L (40-130); Blood Urea Nitrogen 24 mg/dL (8-23); Calcium 8.9 mg/dL (8.5-10.5); Carbon Dioxide 32 mmol/L (22-29); Chloride 95 mmol/L (98-107); Globulin 3.8 g/dL (1.3-4.6); Glomerular Filtration Rate 113.5 mL/min (90-130); Glucose 118 mg/dL (65-115); Iron 24 ug/dL (59-158); Osmolality Calculated 279 mOsm/kg (285-295); Sodium 132 mmol/L (136-145); Total Bilirubin 0.2 mg/dL (0.15-1.2); Total Protein 5.7 g/dL (6.6-8.7)
[2023-04-04 17:00] LABS: Procalcitonin 1.89 ng/mL (0-0.5); Vitamin B12 1207 pg/mL (232-1245)
[2023-04-04 17:35] LABS: C Reactive Protein 111.4 mg/L (0.0-4.9)
--- NOTE | 2023-04-04 17:44 | P.PN_ITS ---
Subjective Subjective: Hospital course, labs appreciated. Today morning when seen patient was belligerent, verbally abusive to the nurses, trying to pull on his PICC line and Knight catheter. Sitter was placed. Patient was given Geodon and then started on IV Precedex. Patient was in A-fib with RVR with heart rate running in 130s after which he was started on IV metoprolol and Cardizem drip which was stopped yesterday was restarted and later changed to amiodarone drip after which his heart rate settled down. Blood pressure initially was in 130s but after with medications systolic came down to high 90s with mean being maintained more than 70. Patient was given IV Lasix. At first patient was placed on BiPAP later later changed to heated high flow as per ABG results. Later was seen again with patient's son Ronald Pickering and his [id number]-erc at bedside. Care discussed in detail. At first patient's son was also little agitated but after discussing in detail he calmed down and was more directive and better with the nursing staff. Vitals/I&O/Wt Last Vital Signs Temp 96.7 F L 04/04/23 03:51 Pulse 74 04/04/23 16:15 Resp 16 04/04/23 16:00 BP 92/63 04/04/23 16:00 Pulse Ox 96 04/04/23 16:15 O2 Del Method BiPAP 04/04/23 16:00 O2 Flow Rate 40 04/04/23 14:54 FiO2 40 04/04/23 16:15 04/04/23 04/04/23 04/04/23 06:59 14:59 22:59 Intake Total 23.333 / 2536.334 966.423 / 966.423 Output Total 200 / 1380 1100 / 1100 Balance -176.667 / 1156.334 -133.577 / -133.577 Physical Exam Narrative: General: Agitated, later sedated but confused HEENT: PERRLA, pupils bilaterally equal and reactive Chest: Bilateral bronchial breath sounds all over lung bonilla with occasional rhonchi CVS: S1-S2 regular, no murmurs, no tachycardia, no gallops, no rubs Abdomen: Soft, nontender, no organomegaly, bowel sounds present, morbidly obese Neuro: No focal deficits, no facial deformity, AO x3, power 5/5 in all limbs Urinary Catheter Management: Knight: Cath Placed During This Visit: yes Reason for Continuing Indwelling Catheter: Accurate Measurement of Urinary Output in Critically Ill Patients Urinary Catheter Date of Insertion: 04/01/23 Urinary Catheter Time of Insertion: 06:06 Data 04/04/23 16:08 04/04/23 16:08 Micro: Microbiology 04/03/23 15:07 Blood Culture - Preliminary Blood NEGATIVE TO DATE 04/03/23 15:00 Blood Culture - Preliminary Blood NEGATIVE TO DATE A&P Assessment and plan (1) Afib: With rapid ventricular response. Patient is noncompliant. At home is supposed to be on Cardizem 180 mg daily along with metoprolol 100 mg twice daily. Switch to amiodarone infusion as per protocol after 150 mg of IV bolus. As patient is unable to take orally switch to IV metoprolol 5 mg every 6 hours to be withheld for systolic blood pressure of less than 110 mmHg. Takes Eliquis at home. For now switch to full dose Lovenox. Last echocardiogram though poor windows shows heart failure with preserved ejection fraction. Qualifiers: Atrial fibrillation type: longstanding persistent Qualified Code(s): I48.11 - Longstanding persistent atrial fibrillation (2) Cellulitis: Left lower limb. Blood cultures so far negative. Check MRSA swab, procalcitonin. CT on admission negative for osteomyelitis or collection. Continue with IV Zosyn. Add vancomycin. Lower limb Dopplers to rule out DVT. Patient is on Eliquis though has been noncompliant to his medications. (3) Metabolic encephalopathy: Most likely in setting of rapid ventricular response, sepsis in setting of cellulitis, hypoxic respiratory failure, withdrawal from substance abuse. Check ammonia levels. Frequent orientation. Wean Precedex as possible. Start on donepezil 10 mg at bedtime, Geodon 10 mg twice daily. Daily EKGs to monitor QTc as patient is on Geodon and amiodarone. Start patient on nicotine patch. (4) Lower extremity edema: (5) Respiratory failure with hypoxia and hypercapnia: Most likely in setting of combination of congestive heart failure and COPD exacerbation. History of end-stage COPD. Dexamethasone 6 mg every 12 hourly. Ipratropium, Xopenex Q4 hourly, budesonide twice daily. Keep oxygen saturation over 88%. For now continue with heated high flow. BiPAP nightly or as needed. Qualifiers: Chronicity: acute on chronic Qualified Code(s): J96.21 - Acute and chronic respiratory failure with hypoxia; J96.22 - Acute and chronic respiratory failure with hypercapnia (6) End stage COPD: (7) (HFpEF) heart failure with preserved ejection fraction: Normal EF though a poor study with diastolic dysfunction, moderately increased RV size with mildly decreased RV systolic function, moderately increased RA size and mildly increased LA size. Patient is supposed to be on Eliquis though is noncompliant. Acute changes on the right heart findings. Will check CTA to rule out pulmonary embolism. Lower limb Dopplers as above. Qualifiers: Heart failure chronicity: chronic Qualified Code(s): I50.32 - Chronic diastolic (congestive) heart failure (8) COPD exacerbation: (9) Moderate tobacco use disorder: (10) Bladder incontinence: Qualifiers: Urinary Incontinence type: mixed stress and urge incontinence Qualified Code(s): N39.46 - Mixed incontinence (11) Substance abuse: Family history of meth abuse with possible current use. Drug screen was ordered few days and admission shows positive for benzos. Nicotine patch. Check HIV, hepatitis panel. Plan NPO. Full dose Lovenox will suffice as DVT prophylaxis. Protonix for PUD prophylaxis. Care discussed in detail with patient's son at bedside with patient's [id number]. All the questions were answered. Attestations Medical Necessity Statement*: Requires further hospitalization for management of acute metabolic ence phalopathy in setting of COPD exacerbation, sepsis from cellulitis, congestive heart failure with preserved ejection fraction in setting of A-fib with RVR in a patient with baseline substance abuse with care being complicated by agitation Coding Level of Care Code Critical Care >/= 30 minutes Critical care time (in minutes): 70 The high probability of a clinically significant, sudden or life threatening deterioration, as referenced in this documentation, required my full and direct attention, intervention and personal management. The critical care time shown is in addition to time spent performing any reported separately billable procedures and includes the following: [x] Data and vital sign review and interpretation [x ] Patient assessment, examination and intervention [x] Medication orders and management [x] Patient/Family updates as able [x] Care Coordination and Documentation. Diagnoses Afib I48.11 Atrial fibrillation type: longstanding persistent Cellulitis L03.90 Metabolic encephalopathy G93.41 Lower extremity edema R60.0 Respiratory failure with hypoxia and hypercapnia J96.21; J96.22 Chronicity: acute on chronic End stage COPD J44.9 (HFpEF) heart failure with preserved ejection fraction I50.32 Heart failure chronicity: chronic COPD exacerbation J44.1 Moderate tobacco use disorder F17.200 Bladder incontinence N39.46 Urinary Incontinence type: mixed stress and urge incontinence Substance abuse F19.10
--- NOTE | 2023-04-04 18:00 | USCV_ITS ---
Gareth Pickering Age: 62 Gender: M : 1960 Exam Date: 04/04/2023 20:19 Ordering Phys: Vahe Lozano MD Technologist: KOBY [place] [facility] [place]: BLE edema. Patient is unresponsive on PAPR in CSU- 111 HISTORY: BLE edema. Patient is unresponsive on PAPR in CSU-111 PROCEDURES: Venous duplex imaging was performed in bilateral lower extremities. The following venous structures were evaluated: common femoral vein, profunda vein, proximal portion of the greater saphenous vein, superficial femoral vein, and the popliteal vein. In addition, the posterior tibial veins were evaluated. Serial compression, augmentation maneuvers, and spectral Doppler flow evaluation were performed, which were normal. Bilaterally, the common femoral, superficial femoral, profunda femoral, popliteal, posterior tibial, and greater saphenous veins were identified and interrogated in the standard fashion. These veins were found to be easily compressible with spontaneous, but highly pulsatile blood flow. No evidence of thrombus noted. CONCLUSIONS No evidence of right lower extremity DVT. No evidence of left lower extremity DVT. Rafa Saleem MD (Electronically Signed) Final Date: 05 April 2023 15:32 S
--- NOTE | 2023-04-04 18:03 | XRR_ITS ---
PROCEDURE INFORMATION: Exam: XR Chest Exam date and time: 04/04/2023 6:17 PM Age: 62 years old Clinical indication: Shortness of breath; Prior surgery; Surgery date: 6+ months; Surgery type: Left rib; Additional info: Copd TECHNIQUE: Imaging protocol: Radiologic exam of the chest. Views: 1 view. COMPARISON: CR (CHEST, ) 04/02/2023 12:26 AM FINDINGS: Lungs: Unremarkable. No consolidation. Pleural spaces: Unremarkable. No pleural effusion. No pneumothorax. Heart/Mediastinum: Cardiomegaly. Bones/joints: Unremarkable. Soft tissues: Postop surgical change left ribs. Other findings: Mild congestion XR/XR chest 1V portable [id number] IMPRESSION: Cardiomegaly with mild congestion
[2023-04-04 18:12] LABS: Anion Gap 9.7 (5-19); Aspartate Amino Transferase 57 U/L (0-40); Percent Saturation 11.4 % (20-50); Potassium 4.7 mmol/L (3.5-5.1); Total Iron Binding Capacity 210 mcg/dl; Unsaturated Iron Binding 186 ug/dL (112-347)
--- NOTE | 2023-04-04 18:16 | ECG_ITS ---
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 Measurements Intervals [place] Rate: 74 P: 0 MD: 0 QRS: 65 QRSD: 109 T: 54 QT: 397 QTc: 442 Interpretive Statements ATRIAL FIBRILLATION LOW QRS VOLTAGE [QRS DEFLECTION < 0.5/1.0 mV IN LIMB/CHEST LEADS] INCOMPLETE RIGHT BUNDLE BRANCH BLOCK [90+ ms QRS DURATION, TERMINAL R IN V1/V2, 40+ ms S IN I/aVL/V4/V5/V6] ANTEROSEPTAL MYOCARDIAL INFARCTION , OF INDETERMINATE AGE [40+ ms Q WAVE IN V1-V4] Compared to ECG 04/01/2023 06:34:36 No significant changes Electronically Signed On 04-05-2023 9:55:26 CDT by Sara Giarldo M.D. [id number]
--- NOTE | 2023-04-04 18:54 | PC.NURSE ---
Pt son shahab left with pt's belongings such as his dirty clothes and his cellphone. he left the pt bag
--- NOTE | 2023-04-04 18:55 | PC.NURSE ---
pt moved closer to nurses station room 111-2
[2023-04-04] MEDS: dexmedetomidine 400 MCG in sodium chloride 0.9% (100 ml) 100 ML 6.49 MCG IV (19:00)
--- NOTE | 2023-04-04 19:46 | PC.NURSE ---
1030 am- Pt has attempted to get out of bed, remove his bipap, telemetry and pulse oximetry, almost remove his picc line and florence catheter due to agitation and wanting to leave. Pt is oriented to person only, incoherent and confused, lethargic at times, became agitated, yelling again when we can't feed him all the time and figure out his lost money and he wants to leave. Dr Notified of pt's agitation, HR-130s to 140s, Afib rvr, Spo2 drop to low 80s w/o his oxygen. sitter provided. meds given to help w/his agitation, his Afib, and oxygen. Precedex drip started at 0.1 mcg/kg/hr per protocol. 1300-pt responded to precedex drip increased to 0.5 mcg/kg/hr per verbal order of Dr Ferreira. Will monitor for HR and BP. for past 4 hrs pt HR-70s to 80s, afib, BP is is in low 90s sytolic, MAP ranges from [address] Ferreira, Precedex drip decreased to 0.2 mcg/kg/hr. mihaela hugger applied for 2 mins, Temp-97.6 axillary. Frequent safety and comfort rounds continue. Orders and/or nursing care completed as indicated. Patient monitored for response to intervention and treatment(s). Education provided includes antibiotic treatment, afib and chf treatments, sedative med response. Patient and/or employer relations representative verbalizes understanding. Will continue to monitor.
[2023-04-04 21:13] LABS: Glucose Point of Care 124 mg/dL (70-110)
--- NOTE | 2023-04-04 21:25 | PC.NURSE ---
Patient woke up and began ripping off Bipap and telemetry, yelling, wanting to leave. Attempts to redirect were unsuccessful. Refuses all medications and cares, becomes more agitated when attempts are made. IV Precedex rate increased to 0.6 mcg/kg/hr. Patient placed back on telemetry after he calmed.
[2023-04-05] VITALS (25 sets, daily range): BP systolic 98–120; BP diastolic 59–92; PULSE 68–105; RESP 10–22; TEMP 36.2–36.6; O2SAT 80–100
[2023-04-05] MEDS: levalbuterol 0.63 mg/3 mL Neb INHALATION ×5 (00:43→15:04)
[2023-04-05] MEDS: ipratropium 0.5 mg/2.5 mL Neb INHALATION ×5 (00:43→15:04)
--- NOTE | 2023-04-05 00:55 | ECG_ITS ---
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 Measurements Intervals [place] Rate: 72 P: 0 NC: 0 QRS: 62 QRSD: 118 T: 47 QT: 409 QTc: 451 Interpretive Statements ATRIAL FIBRILLATION LOW QRS VOLTAGE [QRS DEFLECTION < 0.5/1.0 mV IN LIMB/CHEST LEADS] INCOMPLETE RIGHT BUNDLE BRANCH BLOCK [90+ ms QRS DURATION, TERMINAL R IN V1/V2, 40+ ms S IN I/aVL/V4/V5/V6] ANTEROSEPTAL MYOCARDIAL INFARCTION , OF INDETERMINATE AGE [40+ ms Q WAVE IN V1-V4] Compared to ECG 04/04/2023 18:16:44 No significant changes Electronically Signed On 04-05-2023 9:55:00 CDT by Sara Giraldo M.D. [id number]
[2023-04-05] MEDS: dexmedetomidine 400 MCG in sodium chloride 0.9% (100 ml) 100 ML 22.7 MCG IV (01:53)
[2023-04-05] MEDS: vancomycin 1,750 MG/350 ML PIGGYBACK 233.33 MG IV (02:38)
[2023-04-05] MEDS: piperacillin-tazobactam 3.375 GM in sodium chloride 0.9% (plus) 50 ML IV ×2 (05:16→11:47)
[2023-04-05 05:32] LABS: Bacillus cereus group Not Detected (NOT DETECT); Bacillus subtillis group Not Detected (NOT DETECT); Corynebacterium Not Detected (NOT DETECT); Cutibacterium acnes (P.acnes) Not Detected (NOT DETECT); Enterococcus Not Detected (NOT DETECT); Enterococcus faecalis Not Detected (NOT DETECT); Enterococcus faecium Not Detected (NOT DETECT); Lactobacillus species Not Detected (NOT DETECT); Listeria Not Detected (NOT DETECT); Listeria monocytogenes Not Detected (NOT DETECT); Micrococcus Not Detected (NOT DETECT); Pan Candida Not Detected (NOT DETECT); Pan Gram-Negative Not Detected (NOT DETECT); Staphylococcus epidermidis Not Detected (NOT DETECT); Staphylococcus lugdunensis Not Detected (NOT DETECT); Staphylococcus species Detected (NOT DETECT); Streptococcus agalactiae Not Detected (NOT DETECT); Streptococcus anginosus group Not Detected (NOT DETECT); Streptococcus pneumoniae Not Detected (NOT DETECT); Streptococcus pyogenes Not Detected (NOT DETECT); Streptococcus species Not Detected (NOT DETECT); mecA Detected (NOT DETECT); mecC Not Detected (NOT DETECT)
[2023-04-05] MEDS: enoxaparin 40 mg/0.4 mL Syringe SUBCUT (06:10)
[2023-04-05] MEDS: enoxaparin 80 mg/0.8 mL Syringe SUBCUT (06:10)
[2023-04-05 06:43] LABS: Glucose Point of Care 113 mg/dL (70-110)
[2023-04-05] MEDS: iohexol 350 mg/mL 500 mL Btl (per mL) IV (08:21)
[2023-04-05] MEDS: phosphorus 250 mg Tablet PO (08:37)
[2023-04-05] MEDS: pantoprazole 40 mg SDV IVP (08:38)
[2023-04-05] MEDS: vancomycin 1,750 MG/350 ML PIGGYBACK 233 MG IV (08:38)
[2023-04-05] MEDS: dexamethasone 10 mg/mL INJ 6 MG IVP (08:38)
[2023-04-05] MEDS: nicotine 14 mg Patch 1 PATCH TRANSDERMA (08:40)
[2023-04-05] MEDS: dexmedetomidine 400 MCG in sodium chloride 0.9% (100 ml) 100 ML 12.97 MCG IV (08:56)
[2023-04-05] MEDS: budesonide 0.5 mg/2 mL Neb INHALATION (08:58)
--- NOTE | 2023-04-05 09:30 | CTR_ITS ---
PROCEDURE INFORMATION: Exam: CTA Chest With Contrast Exam date and time: 04/05/2023 8:00 AM Age: 62 years old Clinical indication: Shortness of breath; Prior surgery; Surgery date: 6+ months; Surgery type: Costal fixation; Additional info: Possible pe TECHNIQUE: Imaging protocol: Computed tomographic angiography of the chest with contrast. Exam focused on the arteries. 3D rendering (Not supervised by radiologist): MIP and/or 3D reconstructed images were created by the technologist. Radiation optimization: All CT scans at this facility use at least one of these dose optimization techniques: automated exposure control; mA and/or kV adjustment per patient size (includes targeted exams where dose is matched to clinical indication); or iterative reconstruction. Contrast material: OMNI 350; Contrast volume: 100 ml; Contrast route: INTRAVENOUS (IV); REPORTING DATA: Count of CT and Cardiac NM exams in prior 12 months: This patient has received 5 known CTs and 0 known cardiac nuclear medicine studies in the 12 months prior to the current study. COMPARISON: CT angio chest PE protcl [id number] 10/04/2022 11:48 AM RADIATION DOSE METRICS: Total DLP (mGy-cm): 579.79 FINDINGS: Pulmonary arteries: Normal. No pulmonary emboli. Aorta: Unremarkable. No aortic aneurysm. No aortic dissection. Lungs: Paraseptal and centrilobular emphysematous change . Pleural spaces: Small bilateral pleural effusions Heart: Cardiomegaly without pericardial effusion. Lymph nodes: Unremarkable. No enlarged lymph nodes. Bones/joints: Unremarkable. No acute fracture. Soft tissues: Unremarkable. CT/CT angio chest PE protcl [id number] IMPRESSION: 1. Moderate cardiomegaly. Small bilateral pleural effusions with adjacent atelectasis 2. Centrilobular and paraseptal emphysematous change. 3. Reflux into the hepatic veins suggestive of right heart failure. 4. Fatty infiltration of the liver COMMENTS: In the absence of a history or active diagnosis of lung cancer, it is recommended that this patient with emphysema be evaluated for enrollment in a low dose CT lung cancer screening program.
--- NOTE | 2023-04-05 09:52 | PC.SLP ---
Patient has had no change of status per nursing. Patient not seen.
--- NOTE | 2023-04-05 10:00 | ECG_ITS ---
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 Measurements Intervals [place] Rate: 80 P: 0 MS: 0 QRS: 70 QRSD: 110 T: 44 QT: 379 QTc: 438 Interpretive Statements ATRIAL FIBRILLATION LOW QRS VOLTAGE [QRS DEFLECTION < 0.5/1.0 mV IN LIMB/CHEST LEADS] INCOMPLETE RIGHT BUNDLE BRANCH BLOCK [90+ ms QRS DURATION, TERMINAL R IN V1/V2, 40+ ms S IN I/aVL/V4/V5/V6] ANTEROSEPTAL MYOCARDIAL INFARCTION , OF INDETERMINATE AGE [40+ ms Q WAVE IN V1-V4] Compared to ECG 04/05/2023 00:55:03 No significant changes Electronically Signed On 04-05-2023 9:54:23 CDT by Sara Giraldo M.D. [id number]
[2023-04-05 11:33] LABS: Glucose Point of Care 112 mg/dL (70-110)
[2023-04-05] MEDS: metoprolol tartrate 1 mg/1 mL SDV 5 mL 5 MG IVP (12:20)
[2023-04-05 13:19] LABS: Ammonia 18 umol/L (16-60)
[2023-04-05 13:51] LABS: Alanine Aminotransferase 90 U/L (0-41); Albumin Level 2.2 g/dL (3.5-5.2); Alkaline Phosphatase 146 U/L (40-130); Aspartate Amino Transferase 47 U/L (0-40); Blood Urea Nitrogen 33 mg/dL (8-23); Calcium 9.6 mg/dL (8.5-10.5); Carbon Dioxide 35 mmol/L (22-29); Chloride 96 mmol/L (98-107); Globulin 4.1 g/dL (1.3-4.6); Glomerular Filtration Rate 67.4 mL/min (90-130); Glucose 110 mg/dL (65-115); Osmolality Calculated 294 mOsm/kg (285-295); Sodium 138 mmol/L (136-145); Total Bilirubin 0.4 mg/dL (0.15-1.2); Total Protein 6.3 g/dL (6.6-8.7)
[2023-04-05 13:52] LABS: Anion Gap 11.8 (5-19); Potassium 4.8 mmol/L (3.5-5.1)
[2023-04-05 14:16] LABS: Folate Level 9.4 ng/mL (4.5-32.2)
[2023-04-05 14:17] LABS: Hepatitis A Antibody IgM Non-Reactive (Nonreactive); Hepatitis B Core AB, Total Non-Reactive (Nonreactive); Hepatitis B Surface Antigen Non-Reactive (Nonreactive); Hepatitis C Virus Antibody Non-Reactive (Nonreactive)
[2023-04-05 14:19] LABS: Hepatitis B Surface AB < 3.5 (11.5-1000)
[2023-04-05 14:25] LABS: HIV 1 & 2 Antibody Non-Reactive (Non-Reactiv); HIV 1 & 2 Antigen Non-Reactive (Non-Reactiv)
--- NOTE | 2023-04-05 16:48 | P.DS_ITS ---
Discharge Providers Date of Admission: 04/01/23 02:08 Date of Discharge: April 05, 2023 Attending Provider at Admission: Oriana Rosario MD Attending Provider at Discharge: Vahe Lozano MD Primary Care Provider: Sloan Arias MD Diagnoses at Discharge Discharge Diagnosis (1) Afib: Status: Acute Qualifiers: Atrial fibrillation type: longstanding persistent Qualified Code(s): I48.11 - Longstanding persistent atrial fibrillation (2) Cellulitis: Status: Acute (3) Metabolic encephalopathy: Status: Acute (4) Lower extremity edema: Status: Acute (5) Respiratory failure with hypoxia and hypercapnia: Status: Acute Qualifiers: Chronicity: acute on chronic Qualified Code(s): J96.21 - Acute and chronic respiratory failure with hypoxia; J96.22 - Acute and chronic respiratory failure with hypercapnia (6) End stage COPD: Status: Acute (7) (HFpEF) heart failure with preserved ejection fraction: Status: Acute Qualifiers: Heart failure chronicity: chronic Qualified Code(s): I50.32 - Chronic diastolic (congestive) heart failure (8) COPD exacerbation: Status: Acute (9) Moderate tobacco use disorder: Status: Acute (10) Bladder incontinence: Status: Acute Qualifiers: Urinary Incontinence type: mixed stress and urge incontinence Qualified Code(s): N39.46 - Mixed incontinence (11) Substance abuse: Status: Acute Reason for Visit Reason for Visit: CP Brief History: History as per HPI: Gareth Pickering is a 62 year old male with past medical history of COPD, A-fib with RVR, hyperlipidemia presented to the hospital today with complaint of shortness of breath and some chest pain.? Apparently also has a history of CHF.? He was here earlier today and left AMA after refusing care.? He then called EMS again and was brought in with worsening distress.? He was about to get chemical restraint in the ER but then stated that he is willing to have blood work done in some treatment.? He was placed on BiPAP and given Lasix 40 IV x1.? Since then breathing is a lot better and he is somewhat improved.? However he is altered and confused at this time.? Unable to obtain any kind of history.? Patient moans when he tried to talk to him.? He is also wet himself in the bed.? Knight catheter will be placed shortly.? I do not have much details regarding his chest pain at this time.? As per ER report he did have swelling of his hands and lower extremities on arrival and had mottling up to his abdomen which is now improved.? Initial ABG showed 7.2 /56/4 0.8.? He has been resting comfortably since then.? WBC 18.1, hemoglobin 14.4, platelet 333, sodium 136, potassium 5, creatinine 1.5, BNP 6100.? Baseline troponin 38. Hospital Course Hospital Course Patient was admitted to the hospital for further evaluation and management of metabolic encephalopathy in setting of mild hypercapnia from COPD exacerbation, A-fib with RVR leading to diastolic heart failure in setting of noncompliance to medications along with left lower limb cellulitis. Patient's hospitalization was complicated by him being agitated, noncompliant, noncooperative with the nursing staff with trying to leave AGAINST MEDICAL ADVICE multiple times requiri ng multiple involvement of security personnel. During hospitalization he was started on amiodarone drip after which his heart rate improved, required IV diuresis after which his oxygen supplementation came back to his baseline. Patient requires further hospitalization for further adjustment of medications, continued IV medications for extensive left lower limb cellulitis. Concerns for noncompliance to medication, leaving earlier than needed and requiring further hospitalization were discussed in detail with patient and patient's son. Patient's son was agreeable for for him to stay in the hospital but wanted to do as the patient wanted. Patient was awake and alert on the day of leaving the hospital x3, verbalized understanding that getting out of the hospital can cause him to get admitted again for congestive heart failure and even . Even after all the same he want to go ahead and leave AGAINST MEDICAL ADVICE. New medications including amiodarone which he is to take 200 mg twice daily for 1 week followed by 200 mg once a day, Levoflox 500 mg once a day, Augmentin twice a day for 7 days overall. He is advised to follow up to with PCP in 1 week. His dos eof torsemide has been increased to 40 mg daily. Cardizem has been stopped. Physical Exam Narrative: General: Wake and alert x3, slow to respond but able to have complete conversation HEENT: PERRLA, pupils bilaterally equal and reactive Chest: Bilateral bronchial breath sounds all over lung bonilla with occasional rhonchi CVS: S1-S2 regular, no murmurs, no tachycardia, no gallops, no rubs Abdomen: Soft, nontender, no organomegaly, bowel sounds present, morbidly obese Neuro: No focal deficits, no facial deformity, AO x3, power 5/5 in all limbs Urinary Catheter Management: Knight: Cath Placed During This Visit: yes Reason for Continuing Indwelling Catheter: Accurate Measurement of Urinary Output in Critically Ill Patients Urinary Catheter Date of Insertion: 04/01/23 Urinary Catheter Time of Insertion: 06:06 Discharge Data Studies Completed and Pending Completed Studies During Hospitalization Category Date Time Status CT angio chest PE protcl [id number] Routine Cat Scan 04/05/23 09:[address] chest wo con [id number] Urgent Cat Scan 04/01/23 06:[address] lower leg LT w con [id number] Routine Cat Scan 04/02/23 08:[address] lower leg RT w con [id number] Routine Cat Scan 04/02/23 08:39 Completed XR chest 1V portable [id number] Routine Exams 04/04/23 18:03 Completed XR chest 1V portable [id number] Stat Exams 03/31/23 23:53 Completed XR chest 1V portable [id number] Stat Exams 04/02/23 00:19 [place] [id number] Urgent Ultrasound 04/04/23 18:00 Completed CV. echo complete* [id number] Routine Ultrasound 04/01/23 05:54 Completed Pending at discharge Category Date Time Status Blood Culture Routine Lab 04/03/23 15:07 Results Complete Blood Count w/Auto AM LABS Lab 04/05/23 04:00 Ordered Sputum Culture and Gram Stain Stat Lab 04/01/23 03:02 Uncollected Tick Panel Routine Lab 04/02/23 09:56 Results Vancomycin Random AM LABS Lab 04/06/23 04:00 Ordered Radiology Impressions Chest CT 04/01/23 06:17 Impression: 1. Interstitial change throughout the lungs which remains the same. 2. Cardiomegaly 3. Small bilateral pleural effusions 4. Minimal pericholecystic and perisplenic fluid. Lower Extremity CT 04/02/23 08:39 IMPRESSION: 1. Mild soft tissue swelling without abscess. 2. Small right knee joint effusion without acute fracture. Chest X-Ray 04/04/23 18:03 IMPRESSION: Cardiomegaly with mild congestion Chest CTA 04/05/23 09:30 IMPRESSION: 1. Moderate cardiomegaly. Small bilateral pleural effusions with adjacent atelectasis 2. Centrilobular and paraseptal emphysematous change. 3. Reflux into the hepatic veins suggestive of right heart failure. 4. Fatty infiltration of the liver COMMENTS: In the absence of a history or active diagnosis of lung cancer, it is recommended that this patient with emphysema be evaluated for enrollment in a low dose CT lung cancer screening program. Laboratory Results WBC 21.2 10^3/uL (4.0-10.0) H 04/04/23 16:08 RBC 4.62 10^6/uL (4.1-5.3) 04/04/23 16:08 Hgb 12.8 g/dL (11.7-16.6) 04/04/23 16:08 Hct 43.3 % (42.0-52.0) 04/04/23 16:08 MCV 93.7 fl (80-94) 04/04/23 16:08 MCH 27.7 pg (28.0-34.0) L 04/04/23 16:08 MCHC 29.6 g/dL (30.0-36.0) L 04/04/23 16:08 RDW 15.3 % (12.1-15.1) H 04/04/23 16:08 Plt Count 213 10^3/cmm (130-400) 04/04/23 16:08 MPV 10.0 fL (7.4-10.4) 04/04/23 16:08 Neut % (Auto) 95.7 % 04/04/23 16:08 Lymph % (Auto) 1.3 % 04/04/23 16:08 [place] % (Auto) 2.4 % 04/04/23 16:08 Eos % (Auto) 0.0 % 04/04/23 16:08 Baso % (Auto) 0.2 % 04/04/23 16:08 Neut # (Auto) 20.29 10^3/uL (1.8-7.7) H 04/04/23 16:08 Lymph # (Auto) 0.3 10^3/uL (0.8-4.8) L 04/04/23 16:08 [place] # (Auto) 0.5 10^3/uL (0.2-0.9) 04/04/23 16:08 Eos # (Auto) 0.0 10^3/uL (0.0-0.8) 04/04/23 16:08 Baso # (Auto) 0.1 10^3/uL (0.0-0.1) 04/04/23 16:08 Nucleated RBC % (auto) 0.5 % 04/04/23 16:08 Total Counted 100 (0-100) 04/02/23 02:47 Atypical Lymphs % 0.0 % (0-5) 04/02/23 02:47 Absolute Neutrophils 18.5 10^3/cmm (1.4-6.5) H 04/02/23 02:47 Segmented Neutrophils 79 % 04/02/23 02:47 Abs Segm Neuts (Man) 15.1 10/cmm (1.6-7.1) H 04/02/23 02:47 Band Neutrophils 18.0 % 04/02/23 02:47 Abs Band Neuts (Man) 3.4 10^3/cmm (0.0-1.2) H 04/02/23 02:47 Absolute Lymphocytes 0.4 10^3/cmm (1.2-3.4) L 04/02/23 02:47 Lymphocytes (Manual) 2 % 04/02/23 02:47 Monocytes (Manual) 1.0 % 04/02/23 02:47 Absolute Monocytes 0.2 10^3/cmm (0.1-0.6) 04/02/23 02:47 Eosinophils (Manual) 0 % 04/02/23 02:47 Absolute Eosinophils 0.0 10^3/cmm (0.0-0.7) 04/02/23 02:47 Basophils (Manual) 0.0 % 04/02/23 02:47 Absolute Basophils 0.0 10^3/cmm (0.0-0.2) 04/02/23 02:47 Nucleated RBCs # 0.1 /100WBC 04/04/23 16:08 Toxic Vacuolation Trace 04/02/23 02:47 Platelet Estimate Normal (Normal) 04/02/23 02:47 Anisocytosis 1+ H 04/02/23 02:47 Spherocytes Trace 04/02/23 02:47 Specimen Type Arterial 04/04/23 15:58 Sample Site Brachial, left 04/04/23 15:58 ABG pH 7.44 (7.35-7.45) 04/04/23 15:58 ABG pCO2 60.9 mmHg (35-45) H* 04/04/23 15:58 ABG pO2 65.8 mmHg (80.0-100.0) L 04/04/23 15:58 ABG HCO3 41.6 mmol/L (22-26) H 04/04/23 15:58 ABG O2 Saturation 94.8 04/04/23 15:58 ABG Base Excess 14.6 mmol/L (-2.0-2.0) H 04/04/23 15:58 Jacob Test N/a 04/04/23 15:58 A-a O2 Gradient 28.2 mmHg (5-10) H 04/04/23 15:58 Hematocrit 40.9 % (42-52) L 04/04/23 15:58 Hgb O2 Saturation 93.1 % (95-100) L 04/04/23 15:58 Carboxyhemoglobin 1.5 %THgb (0.4-20.1) 04/04/23 15:58 Methemoglobin 0.3 % (0.4-1.5) L 04/04/23 15:58 Total Hemoglobin 13.3 g/dL (14-18) L 04/04/23 15:58 Sodium 140.0 mmol/L (131-143) 04/04/23 15:58 Potassium 4.5 mmol/L (3.5-5.0) 04/04/23 15:58 Glucose 123.0 mg/dL (70-115) H 04/04/23 15:58 Ionized Calcium 1.3 mmol/L (1.1-1.4) 04/04/23 15:58 O2 Delivery Device Nc 04/04/23 15:58 O2 Liters/Min 35.0 % 04/04/23 15:58 FiO2 50.0 % 04/04/23 15:58 PEEP 8.0 cmH20 04/01/23 22:56 Help Desk Technician ID [facility] 04/04/23 15:58 Sodium 138 mmol/L (136-145) 04/05/23 12:56 Potassium 4.8 mmol/L (3.5-5.1) 04/05/23 12:56 Chloride 96 mmol/L (98-107) L 04/05/23 12:56 Carbon Dioxide 35 mmol/L (22-29) H 04/05/23 12:56 Anion Gap 11.8 (5-19) 04/05/23 12:56 BUN 33 mg/dL (8-23) H 04/05/23 12:56 Creatinine 1.1 mg/dL (0.7-1.2) 04/05/23 12:56 GFR Calculation 67.4 mL/min (90-130) L 04/05/23 12:56 Glucose 110 mg/dL (65-115) 04/05/23 12:56 POC Glucose 112 mg/dL (70-110) H 04/05/23 11:23 Estimat Average Glucose 137 04/01/23 00:58 Hemoglobin A1c 6.4 % (4.0-6.0) H 04/01/23 00:58 Calculated Osmolality 294 mOsm/kg (285-295) 04/05/23 12:56 Lactic Acid 3.2 mmol/L (0.5-2.2) H 04/01/23 00:58 Lactic Acid (Sepsis) Cancelled 04/01/23 15:00 Lactate 1.0 mmol/L (0.5-2.2) 04/03/23 17:09 Calcium 9.6 mg/dL (8.5-10.5) 04/05/23 12:56 Phosphorus 2.2 mg/dL (2.5-4.5) L 04/04/23 05:43 Magnesium 1.7 mg/dL (1.7-2.3) 04/02/23 03:56 Iron 24 ug/dL (59-158) L 04/04/23 16:08 TIBC 210 mcg/dl 04/04/23 16:08 % Saturation 11.4 % (20-50) L 04/04/23 16:08 Unsat Iron Binding 186 ug/dL (112-347) 04/04/23 16:08 Total Bilirubin 0.4 mg/dL (0.15-1.2) 04/05/23 12:56 AST 47 U/L (0-40) H 04/05/23 12:56 ALT 90 U/L (0-41) H 04/05/23 12:56 Alkaline Phosphatase 146 U/L (40-130) H 04/05/23 12:56 Ammonia 18 umol/L (16-60) 04/05/23 12:56 Troponin T Baseline 38 ng/L (0-15) H 03/31/23 00:58 Troponin T 120 Minute 41.09 ng/L (0-15) H 04/01/23 02:13 Delta Troponin T 3.09 ABS# (0-10) 04/01/23 02:13 C-Reactive Protein 111.4 mg/L (0.0-4.9) H 04/04/23 16:08 NT-Pro-B Natriuret Pep 6170 pg/mL (0-125) H 03/31/23 00:58 Total Protein 6.3 g/dL (6.6-8.7) L 04/05/23 12:56 Albumin 2.2 g/dL (3.5-5.2) L 04/05/23 12:56 Globulin 4.1 g/dL (1.3-4.6) 04/05/23 12:56 Lipase 21 U/L (13-60) 03/31/23 00:58 Vitamin B12 1207 pg/mL (232-1245) 04/04/23 16:08 Folate 9.4 ng/mL (4.5-32.2) 04/05/23 12:56 Procalcitonin 1.89 ng/mL (0-0.5) H 04/04/23 16:08 TSH 3.65 uIU/mL (0.27-4.20) 04/01/23 02:13 Vancomycin Trough Cancelled 04/05/23 12:56 Urine Opiates Screen Negative ng/mL (Negative) 04/04/23 08:30 Ur Barbiturates Screen Negative ng/mL (Negative) 04/04/23 08:30 Ur Phencyclidine Scrn Negative ng/mL (Negative) 04/04/23 08:30 Ur Amphetamines Screen Negative ng/mL (Negative) 04/04/23 08:30 U Benzodiazepines Scrn Positive ng/mL (Negative) H 04/04/23 08:30 Urine Cocaine Screen Negative ng/mL (Negative) 04/04/23 08:30 U Marijuana (THC) Screen Negative ng/mL (Negative) 04/04/23 08:30 Lyme Ab (Western Blot) <0.90 index 04/02/23 09:56 Hepatitis A IgM Ab Non-reactive (Nonreactive) 04/05/23 12:56 Hep Bs Antigen Non-reactive (Nonreactive) 04/05/23 12:56 Hep Bs Antibody < 3.5 (11.5-1000) L 04/05/23 12:56 Hep B Core Total Ab Non-reactive (Nonreactive) 04/05/23 12:56 Hepatitis C Antibody Non-reactive (Nonreactive) 04/05/23 12:56 HIV 1&2 Ab & HIV 1 Ag Non-reactive (Non-Reactiv) 04/05/23 12:56 HIV 1&2 Antibody Non-reactive (Non-Reactiv) 04/05/23 12:56 Vitals Last Vital Signs Temp 97.6 F 04/05/23 12:39 Pulse 105 H 04/05/23 14:54 Resp 20 H 04/05/23 14:54 BP 117/91 04/05/23 12:39 Pulse Ox 94 04/05/23 14:54 O2 Del Method Nasal Cannula 04/05/23 14:54 O2 Flow Rate 3 04/05/23 14:54 FiO2 40 04/05/23 11:48 Discharge Plan Discharge Patient Disposition: Left Against Medical Advice Condition: Stable Prescriptions: New amoxicillin-pot clavulanate [Augmentin] 500-125 mg tablet 1 tab PO BID Qty: 14 0RF levofloxacin 500 mg tablet 500 mg PO Q24H 7 Days Qty: 7 0RF amiodarone 200 mg tablet 200 mg PO DAILY Qty: 45 0RF Rx Instructions: Take twice daily for next 1 week followed by 200 mg daily. prednisone 10 mg tablet See Taper PO DIRECTED Qty: 42 0RF Taper: predniSONE 60-10 60 mg Daily for 2 Days and 0 Hour 50 mg Daily for 2 Days and 0 Hour 40 mg Daily for 2 Days and 0 Hour 30 mg Daily for 2 Days and 0 Hour 20 mg Daily for 2 Days and 0 Hour 10 mg Daily for 2 Days and 0 Hour Rx Instructions: see taper instructions Continued metoprolol tartrate 100 mg tablet 100 mg PO BID 90 Days Qty: 180 2RF potassium chloride 10 mEq tablet extended release 20 meq PO DAILY Qty: 60 0RF Eliquis 5 mg tablet 5 mg PO BID budesonide 0.5 mg/2 mL suspension for nebulization 0.5 mg inhalation BID Qty: 60 6RF albuterol sulfate 2.5 mg /3 mL (0.083 %) solution for nebulization 2.5 mg inhalation Q6H PRN (Reason: shortness of breath or wheezing) Qty: 180 5RF Rx Instructions: to use while DuoNeb is unavailable ipratropium-albuterol 0.5 mg-3 mg(2.5 mg base)/3 mL solution for nebulization 3 ml inhalation Q6H PRN (Reason: shortness of breath or wheezing) 30 Days Qty: 180 3RF Anoro Ellipta 62.5-25 mcg/actuation blister with device 1 inh inhalation DAILY Qty: 60 1RF Serevent Diskus 50 mcg/dose blister with device 2 inh inhalation BID Qty: 60 6RF Spiriva Respimat 1.25 mcg/actuation mist 2 puff inhalation DAILY Qty: 4 6RF nystatin 100,000 unit/gram cream 1 applic topical DAILY PRN (Reason: UNKNOWN) sildenafil (pulm.hypertension) 20 mg tablet 20 mg PO DAILY MDD 4 TABS PRN (Reason: sexual activity) Rx Instructions: use 30 minutes before intercourse. max 4 tablets per 24hrs Changed torsemide 20 mg tablet 40 mg PO DAILY Qty: 30 0RF Discontinued diltiazem HCl 180 mg capsule,extended release 24hr 180 mg PO QAM Referrals: Sloan Arias MD [Primary Care Provider] - 1 week Patient Instructions: Opioid Safety Discharge Attestations Time Spent in Discharge Care*: greater than 30 min Specific Discharge Activities: educating patient, educating and/or supporting family/caregiver, discussing with corrections caseworker/social workers/dc planners, documenting/other paperwork and evaluating patient/reviewing data Status at Discharge: Cognitive status at discharge: mildly impaired cognition , Behavioral status at discharge: can be uncooperative , Functional status at discharge: independent ambulation , Overall status at discharge: patient is not back to baseline Quality Metrics Clinical Quality Measures [ No reported AMI, CVA or VTE this stay] Coding Level of Care Code 64736 Total time (in minutes) for Discharge: 70 Diagnoses Afib I48.11 Atrial fibrillation type: longstanding persistent Cellulitis L03.90 Metabolic encephalopathy G93.41 Lower extremity edema R60.0 Respiratory failure with hypoxia and hypercapnia J96.21; J96.22 Chronicity: acute on chronic End stage COPD J44.9 (HFpEF) heart failure with preserved ejection fraction I50.32 Heart failure chronicity: chronic COPD exacerbation J44.1 Moderate tobacco use disorder F17.200 Bladder incontinence N39.46 Urinary Incontinence type: mixed stress and urge incontinence Substance abuse F19.10
--- NOTE | 2023-04-05 17:20 | PC.NURSE ---
pt had clothes at discharge.states he is missing money...discussed with pt's son..he states that a friend thought he took the wallet home or may be in truck.no wallet found in pt's clothing bag
--- NOTE | 2023-04-05 17:22 | PC.NURSE ---
pressidex weaned off and pt demands to leave hospital.he called a friend and told her he had been discharged.she arrived and stated she did not feel comfortable taking him home and asked if we could call his son.roxy was called and he arrived at hospital.pt insistent that he is leaving.dr trujillo notified.pt discharged ama via w/c to exit.all potential complications instructed to pt by nurse and physician.
[2023-04-07 17:10] LABS: E. Chaffeensis AB IGG <1:64; E. Chaffeensis AB IGM <1:20
[2023-04-09 16:54] LABS: RMSF IGG NOT DETECTED; RMSF IGM NOT DETECTED
== END 2023-04-05 17:29 | disposition left against medical advice (07) | DRG 291 ==
LOC: ER 04-01 01:16 → ER IP 04-01 02:31 → CSU 04-01 13:46
PROVIDERS: Emergency Medicine; Internal Medicine; Admitting Provider Internal Medicine; Emergency Provider Nurse Practitioner Family; PCP Family Medicine; Visit Provider Student in an Organized Health Care Education/Training Program
DX: I50.33 Acute on chronic diastolic (congestive) heart failure (principal); G93.41 Metabolic encephalopathy; J96.22 Acute and chronic respiratory failure with hypercapnia; J96.21 Acute and chronic respiratory failure with hypoxia; I48.11 Longstanding persistent atrial fibrillation; L03.116 Cellulitis of left lower limb; J44.1 Chronic obstructive pulmonary disease with (acute) exacerbation; N39.46 Mixed incontinence; E78.5 Hyperlipidemia, unspecified; Z91.199 Patient's noncompliance with other medical treatment and regimen due to unspecified reason; Z53.29 Procedure and treatment not carried out because of patient's decision for other reasons; Z79.01 Long term (current) use of anticoagulants; Z79.51 Long term (current) use of inhaled steroids; R45.1 Restlessness and agitation; I95.9 Hypotension, unspecified; F17.210 Nicotine dependence, cigarettes, uncomplicated
CPT/HCPCS: 36416; 36569; 36600; 51702; 71045; 71250; 71275; 73701; 80048; 80051; 80053; 80306; 82140; 82330; 82607; 82746; 82803; 82805; 82962; 83036; 83540; 83550; 83605; 83690; 83735; 83880; 84100; 84145; 84443; 84484; 85007; 85025; 86140; 86618; 86666; 86705; 86706; 86709; 86757; 86803; 87040; 87077; 87086; 87150; 87186; 87205; 87340; 87641; 87806; 92507; 92523; 92526; 92610; 93005; 93306; 93970; 94640; 94660; 96372; 96374; 96375; 96376; 99285; C9113; J0282; J0696; J1100; J1644; J1650; J1940; J2060; J2405; J2543; J3372; J3486; J3490; J7030; J7040; J7060; J7613; J7614; J7626; J7644; Q9967

== ENCOUNTER 2023-04-06 10:48 | Inpatient (IN) | payer MEDICAID, SELFPAY ==
--- NOTE | 2023-04-06 10:49 | W.ED.GIBLEED ---
HPI - GI Bleed General: Stated complaint: SOB Time Seen by Provider: 04/06/23 10:49 [facility] ED PFSH: Medical History Acute and chronic respiratory failure with hypoxia Acute exacerbation of chronic obstructive airways disease Atrial fibrillation Atrial fibrillation with RVR COPD (chronic obstructive pulmonary disease) Hyperlipidemia Rib deformity Surgical History History of colon surgery Family History Other CAD (coronary artery disease) Hypertension Lung disease Denies family history of Diabetes Clotting disorder Dementia Hyperlipidemia Psychiatric illness Chronic kidney disease (CKD) Anesthesia complication Bleeding disorder Cancer Stroke Social History Smoking and tobacco status: current every day smoker cigarettes Packs smoked per day: 0.5 Alcohol intake: former Substance/Drug Use: never Lives independently: Yes Current occupational status: disabled Current gender identity: Male Special jeri needs: No Agree to transfusion: Yes Discharge Plan Discharge Condition: Stable Prescriptions: No Action metoprolol tartrate 100 mg tablet 100 mg PO BID 90 Days Qty: 180 2RF potassium chloride 10 mEq tablet extended release 20 meq PO DAILY Qty: 60 0RF Eliquis 5 mg tablet 5 mg PO BID budesonide 0.5 mg/2 mL suspension for nebulization 0.5 mg inhalation BID Qty: 60 6RF albuterol sulfate 2.5 mg /3 mL (0.083 %) solution for nebulization 2.5 mg inhalation Q6H PRN (Reason: shortness of breath or wheezing) Qty: 180 5RF Rx Instructions: to use while DuoNeb is unavailable ipratropium-albuterol 0.5 mg-3 mg(2.5 mg base)/3 mL solution for nebulization 3 ml inhalation Q6H PRN (Reason: shortness of breath or wheezing) 30 Days Qty: 180 3RF Anoro Ellipta 62.5-25 mcg/actuation blister with device 1 inh inhalation DAILY Qty: 60 1RF Serevent Diskus 50 mcg/dose blister with device 2 inh inhalation BID Qty: 60 6RF Spiriva Respimat 1.25 mcg/actuation mist 2 puff inhalation DAILY Qty: 4 6RF diltiazem HCl 180 mg capsule,extended release 24hr 180 mg PO QAM nystatin 100,000 unit/gram cream 1 applic topical DAILY PRN (Reason: UNKNOWN) sildenafil (pulm.hypertension) 20 mg tablet 20 mg PO DAILY MDD 4 TABS PRN (Reason: sexual activity) Rx Instructions: use 30 minutes before intercourse. max 4 tablets per 24hrs torsemide 20 mg tablet 20 - 40 mg PO DAILY Referrals: Sloan Arias MD [Primary Care Provider] - Coding Level of Care Code ED Reproduction Production Manager for Emily Talbot
[2023-04-06 10:50] VITALS: BP 137/103; PULSE 117; RESP 18; TEMP 36.3; O2SAT 91; BMI 33.5
--- NOTE | 2023-04-06 10:50 | XR_ITS ---
WS: [id number] XR chest 1V portable [id number] REASON FOR EXAM: dyspnea/cough FINDINGS: Mild tortuosity of the thoracic aorta. Compared to the previous examination of 04/02/2023, the arm PICC line has been removed. There is mild tortuosity of the thoracic aorta and moderate cardiomegaly. No active pulmonary parenchymal or pleural disease is identified. Bony thorax is intact with previous left rib fractures with plate and screw fixation. XR/XR chest 1V portable [id number] IMPRESSION: Cardiomegaly. No acute chest abnormality identified.
--- NOTE | 2023-04-06 10:54 | ECG_ITS ---
[facility] Test Date: 2023-04-06 Pat Name: Gareth Pickering Department: Room: Gender: Male Rn Nicu: : 1960 Requested By: Naren Fountain Order Number: [id number] Natalya MD: Tino Lowery M.D. Measurements Intervals [place] Rate: 143 P: 0 VT: 0 QRS: 107 QRSD: 96 T: 16 QT: 268 QTc: 414 Interpretive Statements ATRIAL FIBRILLATION WITH RAPID VENTRICULAR RESPONSE RIGHT AXIS DEVIATION [QRS AXIS > 100] LOW QRS VOLTAGE IN PRECORDIAL LEADS [QRS DEFLECTION < 1.0 mV IN CHEST LEADS] INCOMPLETE RIGHT BUNDLE BRANCH BLOCK [90+ ms QRS DURATION, TERMINAL R IN V1/V2, 40+ ms S IN I/aVL/V4/V5/V6] ANTEROSEPTAL MYOCARDIAL INFARCTION , PROBABLY OLD [40+ ms Q WAVE IN V1-V4] Compared to ECG 04/05/2023 08:51:23 Right-axis deviation now present Myocardial infarct finding still present Electronically Signed On 04-06-2023 16:51:38 CDT by Tino Lowery M.D. [email or web address]
[2023-04-06 11:02] LABS: ABG PCO2 56.2 mmHg (35-45); ABG PH Result 7.42 (7.35-7.45); Alveolar-Arterial Oxygen Gradi 0.6 mmHg (5-10); Arterial Blood Gas Hematocrit 46.5 % (42-52); Base Excess ABG 9.6 mmol/L (-2.0-2.0); Blood Gas Allen Test Pos; Blood Gas Operator Identificat WALCI; Blood Gas Sample Site Radial, right; Blood Gas Sample Type Arterial; Carboxyhemoglobin 2.9 %THgb (0.4-20.1); HCO3 ABG 36.4 mmol/L (22-26); HGB O2 Sat 92.8 % (95-100); Ionized Calcium Level - ABG 1.3 mmol/L (1.1-1.4); Methemoglobin 0.3 % (0.4-1.5); Oxygen Device NC; Oxygen Saturation ABG 95.9; Potassium Level - ABG 3.3 mmol/L (3.5-5.0); Total Hemoglobin 15.2 g/dL (14-18)
--- NOTE | 2023-04-06 11:16 | ED_ITS ---
HPI - Arrhythmia/Palpitations General: Chief Complaint: Shortness of Breath/Dyspnea Stated Complaint: SOB Time Seen by Provider: 04/06/23 10:49 Source: patient Mode of arrival: EMS History of Present Illness: 62-year-old male who presents to the emergency room via EMS. He was in the hospital yesterday evidently he left last night AMA. He is coming a couple of times in the last week and a half he has been difficult to manage., Due to noncompliance and agitation. He left at around 545 last night did not take any of his last night or this morning's medications. He presents in [facility] with RVR which was one of the diagnosis when he was first admitted. At the time of discharge she was discharged home on amiodarone which she is full to take 200 mg twice daily for a week and then once a day after that. He was also discharged home on levofloxacin and Augmentin. Slight furosemide was increased to 40 mg daily his Cardizem had been stopped. MD complaint: rapid heart beat, heart racing and skipped beats Associated symptoms: Deny nausea or vomiting Review of Systems Const: Reports: body aches and change in appetite; Denies: fever(s), chills, fatigue or malaise Card: Reports: chest pain, palpitations, irregular heart rhythm, edema, dyspnea on exertion and orthopnea Resp: Reports: dyspnea; Denies: productive cough or non-productive cough GI: Denies: abdominal pain, nausea, vomiting or bloating : Denies: flank pain, dysuria, urinary frequency or urinary urgency Skin/Breast: Denies: rash or pruritus PFSH ED PFSH: Medical History Acute and chronic respiratory failure with hypoxia Acute exacerbation of chronic obstructive airways disease Atrial fibrillation Atrial fibrillation with RVR COPD (chronic obstructive pulmonary disease) Hyperlipidemia Rib deformity Surgical History History of colon surgery Family History Other CAD (coronary artery disease) Hypertension Lung disease Denies family history of Diabetes Clotting disorder Dementia Hyperlipidemia Psychiatric illness Chronic kidney disease (CKD) Anesthesia complication Bleeding disorder Cancer Stroke Social History (Reviewed 07/12/23 @ 16:28 by TIMMY Morris Smoking and tobacco status: current every day smoker cigarettes Packs smoked per day: 0.5 Alcohol intake: former Substance/Drug Use: never Lives independently: Yes Current occupational status: disabled Current gender identity: Male Special jeri needs: No Agree to transfusion: Yes Physical Exam Const: GENERAL APPEARANCE: cooperative and comfortable ORIENTATION/CONSCIOUSNESS: Yes awake, Yes oriented to person, Yes oriented to place and Yes oriented to time HENMT: COMMON NORMALS: normocephalic, atraumatic and hearing grossly normal bilaterally HEAD & SCALP: normocephalic and atraumatic Resp: COMMON NORMALS: normal respiratory effort, No retractions, No use of accessory muscles and clear to auscultation bilaterally AUSCULTATION: clear to auscultation bilaterally Cardio: COMMON NORMALS: regular rate, regular rhythm and No murmurs present (Cardio) RATE: regular rate RHYTHM: regular rhythm GI: COMMON NORMALS: Soft to palpation and No hepatosplenomegaly present AUSCULTATION: Yes normoactive bowel sounds PALPATION: Yes Soft to palpation, No Tenderness to palpation present (GI), No Guarding due to palpation present (GI) and Yes No hepatosplenomegaly present Extremity: OTHER: Lower extremities show signs of chronic venous stasis edema with 2+ edema bilaterally. The left leg has redness and erythema most proximal spreading a few superficial abrasions with dry eschars present no active lesions no abscess Neuro: SENSORIUM/ORIENTATION: Yes oriented to person, Yes oriented to place and Yes oriented to time Skin: COMMON NORMALS: no rashes or lesions noted GENERAL SKIN EXAM: no rashes or lesions noted Course Vital Signs: Vital signs: Vital Signs Temperature 97.4 F L 04/06/23 10:50 Pulse Rate 117 H 04/06/23 10:50 Respiratory Rate 18 04/06/23 10:50 Blood Pressure 137/103 04/06/23 10:50 Pulse Oximetry 91 04/06/23 10:50 Oxygen Delivery Me thod Nasal Cannula 04/06/23 10:50 Oxygen Flow Rate 6 04/06/23 10:50 MDM - Arrhythmia/Palpitations Medical Decision Making Patient Jimenez with RVR improved after administration of beta-blockers and amiodarone. He still has cellulitis of his left lower extremity and appears to be fluid overloaded discussed with hospitalist will admit. White count still elevated. Dr. Lozano will admit orders are written. Patient left AMA last night states he is now willing to stay in the hospital and be treated Medical Records I reviewed the patient's medical records. Lab Data I reviewed the patient's lab results. 04/06/23 11:43 04/06/23 11:43 Radiology Impressions Chest X-Ray 04/06/23 10:50 IMPRESSION: Cardiomegaly. No acute chest abnormality identified. Laboratory Results WBC 19.5 10^3/uL (4.0-10.0) H 04/06/23 11:43 RBC 5.37 10^6/uL (4.1-5.3) H 04/06/23 11:43 Hgb 14.8 g/dL (11.7-16.6) 04/06/23 11:43 Hct 47.8 % (42.0-52.0) 04/06/23 11:43 MCV 89.0 fl (80-94) 04/06/23 11:43 MCH 27.6 pg (28.0-34.0) L 04/06/23 11:43 MCHC 31.0 g/dL (30.0-36.0) 04/06/23 11:43 RDW 15.6 % (12.1-15.1) H 04/06/23 11:43 Plt Count 321 10^3/cmm (130-400) 04/06/23 11:43 MPV 9.2 fL (7.4-10.4) 04/06/23 11:43 Neut % (Auto) 88.8 % 04/06/23 11:43 Lymph % (Auto) 2.4 % 04/06/23 11:43 [place] % (Auto) 6.6 % 04/06/23 11:43 Eos % (Auto) 0.0 % 04/06/23 11:43 Baso % (Auto) 0.3 % 04/06/23 11:43 Neut # (Auto) 17.31 10^3/uL (1.8-7.7) H 04/06/23 11:43 Lymph # (Auto) 0.5 10^3/uL (0.8-4.8) L 04/06/23 11:43 [place] # (Auto) 1.3 10^3/uL (0.2-0.9) H 04/06/23 11:43 Eos # (Auto) 0.0 10^3/uL (0.0-0.8) 04/06/23 11:43 Baso # (Auto) 0.1 10^3/uL (0.0-0.1) 04/06/23 11:43 Nucleated RBC % (auto) 0.2 % 04/06/23 11:43 Nucleated RBCs # 0.0 /100WBC 04/06/23 11:43 Specimen Type Arterial 04/06/23 10:51 Sample Site Radial, right 04/06/23 10:51 ABG pH 7.42 (7.35-7.45) 04/06/23 10:51 ABG pCO2 56.2 mmHg (35-45) H 04/06/23 10:51 ABG pO2 76.0 mmHg (80.0-100.0) L 04/06/23 10:51 ABG HCO3 36.4 mmol/L (22-26) H 04/06/23 10:51 ABG O2 Saturation 95.9 04/06/23 10:51 ABG Base Excess 9.6 mmol/L (-2.0-2.0) H 04/06/23 10:51 Jacob Test Pos 04/06/23 10:51 A-a O2 Gradient 0.6 mmHg (5-10) L 04/06/23 10:51 Hematocrit 46.5 % (42-52) 04/06/23 10:51 Hgb O2 Saturation 92.8 % (95-100) L 04/06/23 10:51 Carboxyhemoglobin 2.9 %THgb (0.4-20.1) 04/06/23 10:51 Methemoglobin 0.3 % (0.4-1.5) L 04/06/23 10:51 Total Hemoglobin 15.2 g/dL (14-18) 04/06/23 10:51 Sodium 143.0 mmol/L (131-143) 04/06/23 10:51 Potassium 3.3 mmol/L (3.5-5.0) L 04/06/23 10:51 Glucose 122.0 mg/dL (70-115) H 04/06/23 10:51 Ionized Calcium 1.3 mmol/L (1.1-1.4) 04/06/23 10:51 O2 Delivery Device Nc 04/06/23 10:51 O2 Liters/Min 5.0 % 04/06/23 10:51 Fill Technician ID Tacos 04/06/23 10:51 Sodium 143 mmol/L (136-145) 04/06/23 11:43 Potassium 3.9 mmol/L (3.5-5.1) 04/06/23 11:43 Chloride 100 mmol/L (98-107) 04/06/23 11:43 Carbon Dioxide 34 mmol/L (22-29) H 04/06/23 11:43 Anion Gap 12.9 (5-19) 04/06/23 11:43 BUN 30 mg/dL (8-23) H 04/06/23 11:43 Creatinine 0.9 mg/dL (0.7-1.2) 04/06/23 11:43 GFR Calculation 85.0 mL/min (90-130) L 04/06/23 11:43 Glucose 99 mg/dL (65-115) 04/06/23 11:43 Calculated Osmolality 302 mOsm/kg (285-295) H 04/06/23 11:43 Calcium 9.1 mg/dL (8.5-10.5) 04/06/23 11:43 Total Bilirubin 0.4 mg/dL (0.15-1.2) 04/06/23 11:43 AST 43 U/L (0-40) H 04/06/23 11:43 ALT 79 U/L (0-41) H 04/06/23 11:43 Alkaline Phosphatase 104 U/L (40-130) 04/06/23 11:43 Troponin T Baseline 51 ng/L (0-15) H 04/06/23 11:43 Troponin T 120 Minute 43.78 ng/L (0-15) H 04/06/23 13:45 Delta Troponin T -7.22 ABS# (0-10) L 04/06/23 13:45 NT-Pro-B Natriuret Pep 2440 pg/mL (0-125) H 04/06/23 11:43 Total Protein 5.9 g/dL (6.6-8.7) L 04/06/23 11:43 Albumin 2.8 g/dL (3.5-5.2) L 04/06/23 11:43 Globulin 3.1 g/dL (1.3-4.6) 04/06/23 11:43 Discharge Plan Discharge Admit Provider: Vahe Lozano Condition: Stable Coding Level of Care Code ED Weld Inspector for Emily Talbot
[2023-04-06] MEDS: metoprolol tartrate 1 mg/1 mL SDV 5 mL 2.5 MG IVP (11:38)
[2023-04-06] MEDS: metoprolol tartrate 50 mg Tablet 100 MG PO (11:38)
[2023-04-06 11:51] LABS: Basophils # 0.1 10^3/uL (0.0-0.1); Basophils % 0.3 %; Hematocrit 47.8 % (42.0-52.0); Hemoglobin 14.8 g/dL (11.7-16.6); Lymphocytes # 0.5 10^3/uL (0.8-4.8); Lymphocytes % 2.4 %; Mean Corpuscular Hemoglobin 27.6 pg (28.0-34.0); Mean Platelet Volume 9.2 fL (7.4-10.4); Monocytes # 1.3 10^3/uL (0.2-0.9); Monocytes % 6.6 %; Neutrophils # 17.31 10^3/uL (1.8-7.7); Neutrophils % 88.8 %; Nucleated Red Blood Cells % 0.2 %; Platelet Count 321 10^3/cmm (130-400); Red Blood Count 5.37 10^6/uL (4.1-5.3); Red Cell Distribution Width 15.6 % (12.1-15.1); White Blood Count 19.5 10^3/uL (4.0-10.0)
[2023-04-06 12:13] LABS: Troponin(5th) Baseline 51 ng/L (0-15)
[2023-04-06 12:22] LABS: Alanine Aminotransferase 79 U/L (0-41); Albumin Level 2.8 g/dL (3.5-5.2); Alkaline Phosphatase 104 U/L (40-130); Anion Gap 12.9 (5-19); Aspartate Amino Transferase 43 U/L (0-40); Blood Urea Nitrogen 30 mg/dL (8-23); Calcium 9.1 mg/dL (8.5-10.5); Carbon Dioxide 34 mmol/L (22-29); Chloride 100 mmol/L (98-107); Globulin 3.1 g/dL (1.3-4.6); Glucose 99 mg/dL (65-115); NT Pro B Type Natriuretic Pept 2440 pg/mL (0-125); Osmolality Calculated 302 mOsm/kg (285-295); Potassium 3.9 mmol/L (3.5-5.1); Sodium 143 mmol/L (136-145); Total Bilirubin 0.4 mg/dL (0.15-1.2); Total Protein 5.9 g/dL (6.6-8.7)
--- NOTE | 2023-04-06 12:22 | PC.PHAR ---
pt states his medications are the same as the last time he was in here-pt states since he was discharged home he hasnt taken any of his medications
--- NOTE | 2023-04-06 12:50 | ECG_ITS ---
[facility] Test Date: 2023-04-06 Pat Name: Gareth Pickering Department: Room: Gender: Male Global Category Manager: : 1960 Requested By: Naren Fountain Order Number: [id number] Natalya MD: Tino Lowery M.D. Measurements Intervals [place] Rate: 119 P: 0 FL: 0 QRS: 99 QRSD: 112 T: 26 QT: 322 QTc: 454 Interpretive Statements ATRIAL FIBRILLATION WITH RAPID VENTRICULAR RESPONSE LOW QRS VOLTAGE [QRS DEFLECTION < 0.5/1.0 mV IN LIMB/CHEST LEADS] RIGHT BUNDLE BRANCH BLOCK [120+ ms QRS DURATION, UPRIGHT V1, 40+ ms S IN I/aVL/V4/V5/V6] ANTEROSEPTAL MYOCARDIAL INFARCTION , OF INDETERMINATE AGE [40+ ms Q WAVE IN V1-V4] Compared to ECG 04/06/2023 10:54:11 Right bundle-branch block now present Right-axis deviation no longer present Incomplete right bundle-branch block no longer present Myocardial infarct finding still present Electronically Signed On 04-06-2023 17:02:11 CDT by Tino Lowery M.D. [id number]
[2023-04-06] MEDS: amiodarone 200 mg Tablet PO ×2 (13:04→17:32)
[2023-04-06 14:24] LABS: Troponin 5 2HR 43.78 ng/L (0-15)
[2023-04-06 14:26] LABS: Troponin 5 2HR Delta -7.22 ABS# (0-10)
--- NOTE | 2023-04-06 16:22 | P.HP_ITS ---
Providers/Chief Complaint Admitting Physician: Vahe Lozano MD Primary Care Provider: Sloan Arias MD Chief Complaint: SOB History of Present Illness Gareth Pickering is a 62 year old male with past medical history of advanced COPD on home oxygen of 5 L, atrial fibrillation with rapid ventricular response, noncompliant, aggressive behavior, hyperlipidemia, history of leaving AGAINST MEDICAL ADVICE multiple times in the past who was recently in the hospital from 04/01 to 04/05 when he left AGAINST MEDICAL ADVICE. On that visit he was being treated for COPD exacerbation along with CHF exacerbation in setting of atrial fibrillation with rapid ventricular response and left leg cellulitis leading to altered mental status. Patient returns to the ER today complaining of shortness of breath found to be in atrial fibrillation with rapid ventricular response. In the ER he was placed back on oxygen supplementation, given IV and oral metoprolol 100 mg along with oral amiodarone after which his heart rate improved down to 60s. Examination patient is awake and alert, able to have complete conversation, agreeable to stay for long-term To complete the course of medications. States this time his friend made him come to the hospital and will have to stay because his friend is asking him to the same. He states his friend lets him park his camper at his property and if he leaves early he will not be allowed to stay there anymore. He is complaining of shortness of breath denies any chest pain, nausea or vomiting. Does not remember taking medications today or yesterday. Review of Systems General: Reports: 10 or more systems reviewed and unremarkable except in HPI and below Const: Denies: fever(s), chills, body aches, change in appetite, change in we ight, malaise, night sweats, diaphoresis, change in sleep pattern, daytime sleepiness or snoring Eyes: Denies: change in vision, blurry vision, photophobia, eye discomfort or eye discharge ENMT: Denies: throat pain, enlarged tonsils, hoarseness, mouth pain, oral sores, dry mouth, tinnitus, nasal congestion or post nasal drip Card: Denies: chest pain, palpitations, irregular heart rhythm, edema, swelling of feet/ankles, lightheadedness, syncope, pre-syncope, dyspnea on exertion, orthopnea, leg pain with exertion or acrocyanosis Resp: Denies: dyspnea, productive cough, non-productive cough, wheezing, stridor, pain on inspiration, change in phlegm color, hemoptysis or chest congestion GI: Denies: abdominal pain, nausea, vomiting, hematemesis, coffee ground emesis, dysphagia, heartburn, diarrhea, constipation, bloating, GI cramping, change in bowel habits, pain on defecation, hematochezia or melena : Denies: flank pain, difficulty urinating, dysuria, urinary frequency, urinary urgency, urinary hesitancy, urinary dribbling, difficulty starting urination, change in urine stream, nocturia or hematuria Musc: Denies: neck pain, back pain, extremity pain, joint pain, joint swelli ng, joint redness, joint stiffness or limited range of motion Neuro: Denies: headache(s), numbness in extremities, weakness in extremities, sensory changes, lack of coordination, difficulty walking, frequent falls, dizziness, vertigo, confusion, Slurred speech present, difficulty communicating thoughts or seizure-like activity Psych: Denies: anxiety, depression, mood swings, panic attacks, hopelessness or irritability Endo: Denies: polyuria, polydipsia, tired all the time, cold intolerance, excessive sweating, flushing or heat intolerance Chay/Lymph: Denies: easy bruising or easy bleeding All/Imm: Denies: tongue swelling, facial swelling or acute wheezing Medications/Allergies Home Medications Medication Instructions Recorded Confirmed Last Taken Type albuterol sulfate 2.5 mg/3 mL 2.5 mg (3 mL) inhalation Q6H PRN 12/06/22 04/06/23 Unknown Rx (0.083 %) solution for nebulization shortness of breath or wheezing #180 mL metoprolol tartrate 100 mg tablet 100 mg PO BID 90 days #180 tabs 12/22/22 04/06/23 Unknown Rx ipratropium 0.5 mg-albuterol 3 mg 3 ml inhalation Q6H PRN shortness 12/24/22 04/06/23 Unknown Rx (2.5 mg base)/3 mL nebulization of breath or wheezing 30 days #180 soln mL umeclidinium 62.5 mcg-vilanterol 1 inh inhalation DAILY #60 ea 12/24/22 04/06/23 Unknown Rx 25 mcg/actuation powdr for inhalation (Anoro Ellipta) potassium chloride 10 mEq 20 meq PO DAILY #60 tabs 02/28/23 04/06/23 Unknown Rx tablet,extended release apixaban 5 mg tablet (Eliquis) 5 mg PO BID 03/10/23 04/06/23 Unknown History budesonide 0.5 mg/2 mL suspension 0.5 mg (2 mL) inhalation BID COPD 03/10/23 04/06/23 Unknown Rx for nebulization #60 mL salmeterol 50 mcg/dose blister 2 inh inhalation BID #60 ea 03/25/23 04/06/23 Un known Rx powder for inhalation (Serevent Diskus) tiotropium bromide 1.25 2 puff inhalation DAILY #4 grams 03/25/23 04/06/23 Unknown Rx mcg/actuation mist for inhalation (Spiriva Respimat) diltiazem HCl 180 mg 180 mg PO QAM 04/01/23 04/06/23 Unknown History capsule,extended release 24 hr nystatin 100,000 unit/gram topical 1 applic topical DAILY PRN UNKNOWN 04/01/23 04/06/23 Unknown History cream sildenafil (pulm.hypertension) 20 20 mg PO DAILY PRN sexual activity 04/01/23 04/06/23 Unknown History mg tablet torsemide 20 mg tablet 20 - 40 mg PO DAILY 04/01/23 04/06/23 Unknown History Allergies Allergy/AdvReac Type Severity Reaction Status Date / Time No Known Allergies Allergy Verified 04/06/23 10:54 PFSH Acute PFSH: Medical History (Updated 04/06/23 @ 16:51 by Vahe Lozano MD) Acute and chronic respiratory failure with hypoxia Acute exacerbation of chronic obstructive airways disease Atrial fibrillation Atrial fibrillation with RVR COPD (chronic obstructive pulmonary disease) Hyperlipidemia Rib deformity Surgical History History of colon surgery Family History Other CAD (coronary artery disease) Hypertension Lung disease Denies family history of Diabetes Clotting disorder Dementia Hyperlipidemia Psychiatric illness Chronic kidney disease (CKD) Anesthesia complication Bleeding disorder Cancer Stroke Social History Smoking and tobacco status: current every day smoker cigarettes Packs smoked per day: 0.5 Alcohol intake: former Substance/Drug Use: never Lives independently: Yes Current occupational status: disabled Current gender identity: Male Special jeri needs: No Agree to transfusion: Yes Vitals/I&O/Wt Last Vital Signs Temp 97.4 F L 04/06/23 10:50 Pulse 117 H 04/06/23 10:50 Resp 18 04/06/23 10:50 BP 137/103 04/06/23 10:50 Pulse Ox 91 04/06/23 10:50 O2 Del Method Nasal Cannula 04/06/23 10:50 O2 Flow Rate 6 04/06/23 10:50 Weight last 48 hrs Weight 108.862 kg Physical Exam Narrative: General: No acute distress, AO x3, NC oxygen supplementation HEENT: PERRLA, pupils bilaterally equal and reactive Chest: Bilateral bronchial breath sounds all over lung bonilla with occasional rhonchi and crackles CVS: S1-S2 irregularly irregular, no murmurs, tachycardia, no gallops, no rubs Abdomen: Soft, nontender, no organomegaly, bowel sounds present, morbidly obese Neuro: No focal deficits, no facial deformity, AO x3, power 5/5 in all limbs Extremities: Left leg swollen, erythematous, superficial abrasion present on bilateral shins with dried scab without any drainage Data 04/06/23 11:43 04/06/23 11:43 A&P Assessment and plan (1) Cellulitis: CT of the lower limbs bilaterally on 04/02 negative for abscess or osteomyelitis. Lower limb Dopplers negative for DVT on 04/04. MRSA swab negative on 04/05. For now empirically start on vancomycin and Zosyn. Hydrofera Blue for wounds. (2) Acute on chronic respiratory failure with hypoxia and hypercapnia: Insetting of advanced COPD along with CHF exacerbation. Keep oxygen supplementation over 88%. DuoNebs every 4 hour, budesonide twice daily. Hold off on starting steroids for now. Check sputum culture. Chest x-ray negative for consolidation for now. (3) (HFpEF) heart failure with preserved ejection fraction: Last echocardiogram from 04/01 was poor study because of COPD with moderately dilated LA and RA size and RV failure. CTA done negative for pulm embolism. IV Lasix 40 mg daily. Strict input of charting, daily weights. Fluid restriction up to 1500 cc. Qualifiers: Heart failure chronicity: chronic Qualified Code(s): I50.32 - Chronic diastolic (congestive) heart failure (4) Atrial fibrillation with RVR: Secondary to noncompliance. Chronic. Continue with amiodarone 200 mg twice daily, metoprolol 50 mg twice daily. (5) Coag negative Staphylococcus bacteremia: Most recently from 04/03. Could be contaminant. Cannot rule out actual bacteremia given blood culture positive even on 11/11 when he left AGAINST MEDICAL ADVICE. Repeat blood culture. Antibiotic as above. Echocardiogram poor study given advanced COPD. (6) Sepsis: Present on admission with tachycardia, leukocytosis in setting of cellulitis, coag negative bacteremia with possible endorgan damage secondary to respiratory failure. Antibiotic as above. Will not resuscitate with fluid as patient is in congestive heart failure. Check lactate (7) COPD exacerbation: (8) Non-compliance: With history of substance abuse. Check urine drug screen, alcohol level. Patient has history of leaving AGAINST MEDICAL ADVICE multiple times with most recently yesterday. For now patient wants to stay and complete the treatment. Plan Full code. Cardiac diet. Eliquis will suffice as DVT prophylaxis. Protonix for PUD prophylaxis. Attestations Medical Necessity Statement*: Admission for more than 2 midnights for management of acute on chronic hypoxic and hypercapnic respiratory failure in setting of COPD, exacerbation of diastolic heart failure in setting of atrial fibrillation with rapid ventricular response, left leg cellulitis with coag negative bacteremia Diagnoses Cellulitis L03.90 Acute on chronic respiratory failure with hypoxia and hypercapnia J96.21; J96.22 (HFpEF) heart failure with preserved ejection fraction I50.32 Heart failure chronicity: chronic Atrial fibrillation with RVR I48.91 Coag negative Staphylococcus bacteremia R78.81; B95.7 Sepsis A41.9 COPD exacerbation J44.1 Non-compliance Z91.199
--- NOTE | 2023-04-06 16:41 | PC.PHAR ---
vanc trough to be drawn prior to 4th dose Patient: Floor: Age: 62 yo Serum creatinine: 0.9 mg/dL Height: 70.9 Inches Weight (kg): 108 IBW (kg): 75.07 Dosing wt(kg): 108 Estimated Creatinine clearance (ml/min): 88.0 CRCL method: Cockcroft and Gault using ibw(default). Drug selected: Vancomycin Loading dose (mg): Vd (liters): 75.6 (factor used: 0.7 L/kg) Yassine (hr-1): 0.077 Half life (hrs): 9.00 CLvanco=?? 5.821 L/hr Recommended dose: 1500 mg Interval: 12 hrs Infusion time (hrs): 1 Predicted peak (mcg/mL): 31.7 Predicted trough (mcg/mL): 13.59 Total body weight is being used for vancomycin dosing. Renal function is stable [ ] /unstable [ ] Recommendations: Give Vancomycin 1500 mg q 12 hrs with an expected Cpeak of 31.7 mcg/ml and an expected Ctrough of 13.59 mcg/ml AUC 0-24 /CARMEN Data: CARMEN 0.5 mcg/mL:?? AUC/CARMEN:? 1030.8 CARMEN 1.0 mcg/mL:?? AUC/CARMEN:? 515.4 --------- CARMEN 1.5 mcg/mL:?? AUC/CARMEN:? 343.6 CARMEN 2.0 mcg/mL:?? AUC/CARMEN:? 257.7 Renal dosing of other antibiotics (review renal dosing of other medications and list guidelines here): Thank you for the consult, will continue to follow. Signature: Wagner Dumont, [employer]
--- NOTE | 2023-04-06 16:50 | ECG_ITS ---
Test Date: 2023-04-06 Pat Name: Gareth Pickering Department: Room: 108 Gender: Male Hood Maker: : 1960 Requested By: Naren Fountain Order Number: [id number] Reading MD: Mariusz Martínez M.D. Measurements Intervals [place] Rate: 95 P: 0 UT: 0 QRS: 104 QRSD: 118 T: 48 QT: 366 QTc: 462 Interpretive Statements ATRIAL FIBRILLATION RIGHT AXIS DEVIATION [QRS AXIS > 100] LOW QRS VOLTAGE IN PRECORDIAL LEADS [QRS DEFLECTION < 1.0 mV IN CHEST LEADS] RIGHT BUNDLE BRANCH BLOCK [120+ ms QRS DURATION, UPRIGHT V1, 40+ ms S IN I/aVL/V4/V5/V6] POSSIBLE ANTERIOR MYOCARDIAL INFARCTION , OF INDETERMINATE AGE [30 ms Q WAVE IN V3/V4, OR R < 0.2 mV IN V4] Compared to ECG 04/06/2023 13:07:12 Right-axis deviation now present Myocardial infarct finding still present Electronically Signed On 04-07-2023 14:52:26 CDT by Mariusz Martínez M.D. [id number]
[2023-04-06] MEDS: piperacillin-tazobactam 3.375 GM in sodium chloride 0.9% (plus) 50 ML IV (17:29)
[2023-04-06] MEDS: FUROsemide 10 mg/mL SDV 4mL 40 MG IVP (17:30)
[2023-04-06] MEDS: apixaban 5 mg Tablet PO (17:32)
[2023-04-06 17:38] LABS: Procalcitonin 0.81 ng/mL (0-0.5)
[2023-04-06 17:54] LABS: Alcohol Level < 10 mg/dL (0-10)
[2023-04-06 19:07] VITALS: BP 140/90; PULSE 103; RESP 24; TEMP 37.1; O2SAT 93
[2023-04-06 19:10] VITALS: PULSE 88
[2023-04-06] MEDS: ipratropium-albuterol 3 mL Neb INHALATION (19:44)
[2023-04-06] MEDS: budesonide 0.5 mg/2 mL Neb INHALATION (19:44)
[2023-04-06 19:45] VITALS: PULSE 105; RESP 20; O2SAT 94
[2023-04-06] MEDS: vancomycin 1,500 MG/300 ML PIGGYBACK 200 MG IV (19:52)
[2023-04-06 20:11] VITALS: BP 131/75; PULSE 110; RESP 22; O2SAT 92
[2023-04-06] MEDS: metoprolol tartrate 50 mg Tablet PO (20:19)
[2023-04-06 21:16] LABS: Glucose Point of Care 108 mg/dL (70-110)
--- NOTE | 2023-04-06 21:16 | XRR_ITS ---
PROCEDURE INFORMATION: Exam: XR Chest Exam date and time: 04/06/2023 9:23 PM Age: 62 years old Clinical indication: Device placement; Picc; Additional info: Picc placement TECHNIQUE: Imaging protocol: Radiologic exam of the chest. Views: 1 view. COMPARISON: CR XR chest 1V portable [id number] 04/06/2023 11:04 AM FINDINGS: Tubes, catheters and devices: Right-sided PICC line with distal tip overlying SVC. Lungs: No consolidative pulmonary infiltrate noted. Pleural spaces: No pleural effusion. No pneumothorax. Heart/Mediastinum: Cardiomegaly is present. Bones/joints: Status post ORIF of left rib fractures. No acute osseous abnormality is demonstrated. XR/XR chest 1V portable [id number] IMPRESSION: 1. Right-sided PICC line with distal tip overlying SVC. This is new when compared to the previous study. 2. Cardiomegaly is present. 3. No acute abnormality demonstrated.
--- NOTE | 2023-04-06 21:29 | PC.NURSE ---
Consulted by House Charge for PICC placement r/t vancomycin therapy. Nurse requested double lumen. Pt is tachycardic and hx of hypotension and potential sepsis. Explained procedure to pt and answered questions. Consent signed by pt. Using US guidance, MST, and sterile technique the R brachial vein was accessed on the second stick. The first attempt the wire would not feed without pain per pt. On second attempt fed easily. Both ports aspirate and flush easily. Device secured and dressed. Labs obtained and handed to user experience analyst. Report to nurse. EBL 5ml. Pt tolerated well. Length 43 cm. RUE circumference is 33 cm at 10 cm above the AC fossa.
[2023-04-06 21:47] LABS: Lactic Sepsis W/Reflex 1.3 mmol/L (0.5-2.2)
[2023-04-06 22:00] VITALS: PULSE 112
[2023-04-06] MEDS: ALPRAZolam 0.5 mg Tablet PO (22:01)
[2023-04-06] MEDS: chlorPROMazine 25 mg Tablet PO (22:19)
[2023-04-06 22:25] LABS: Troponin 5 6HR 33.41 ng/L (0-15)
[2023-04-07] VITALS (11 sets, daily range): BP systolic 103–114; BP diastolic 74–82; PULSE 91–126; RESP 17–23; TEMP 36.4; O2SAT 91–96; BMI 33.5
[2023-04-07] MEDS: piperacillin-tazobactam 3.375 GM in sodium chloride 0.9% (plus) 50 ML IV ×2 (00:21→09:15)
[2023-04-07] MEDS: vancomycin 1,500 MG/300 ML PIGGYBACK 200 MG IV ×2 (05:22→17:28)
[2023-04-07 05:28] LABS: Basophils % 0.2 %; Eosinophils # 0.2 10^3/uL (0.0-0.8); Hematocrit 44.7 % (42.0-52.0); Lymphocytes # 0.9 10^3/uL (0.8-4.8); Lymphocytes % 8.7 %; Mean Corpuscular HGB Conc 29.1 g/dL (30.0-36.0); Mean Corpuscular Hemoglobin 26.7 pg (28.0-34.0); Mean Corpuscular Volume 91.8 fl (80-94); Mean Platelet Volume 9.3 fL (7.4-10.4); Monocytes # 0.9 10^3/uL (0.2-0.9); Monocytes % 8.8 %; Neutrophils # 7.76 10^3/uL (1.8-7.7); Neutrophils % 78.1 %; Nucleated Red Blood Cells % 0 %; Platelet Count 276 10^3/cmm (130-400); Red Blood Count 4.87 10^6/uL (4.1-5.3); Red Cell Distribution Width 15.7 % (12.1-15.1)
[2023-04-07 07:31] LABS: Glucose Point of Care 102 mg/dL (70-110)
[2023-04-07] MEDS: budesonide 0.5 mg/2 mL Neb INHALATION ×2 (08:23→19:55)
--- NOTE | 2023-04-07 08:23 | PC.NURSE ---
Patient's legs were changed dressed with hydrofera blue on his right side and secure with an island dressing and kerlex. On his left side nurse dressed with silvercell, island dressing, and kerlex. Both were cleaned with normal saline and gauze before dressing.
[2023-04-07] MEDS: amiodarone 200 mg Tablet PO ×2 (08:54→17:27)
[2023-04-07] MEDS: metoprolol tartrate 50 mg Tablet PO (08:54)
[2023-04-07] MEDS: apixaban 5 mg Tablet PO ×2 (08:54→17:27)
[2023-04-07] MEDS: ipratropium-albuterol 3 mL Neb INHALATION ×4 (09:12→19:55)
--- NOTE | 2023-04-07 09:43 | PC.CHAP ---
Pastoral Care Encounter/Spiritual Assessment Type of Contact [] Declined crm developer visit [] Patient/Family/Request visit [] Outpatient visit [] Follow-up visit [] Physician referral [] Code/Alert [x] Routine visit [] Staff referral [] Actively dying [] Patient sleeping [] Family support [] [] Out of room [] Palliative care [] [] Receiving care in room [] Pre-surgical visit [] Trauma [] Long length of stay [] ICU visit [] Other: Relational/Emotional Strength [] Patient feels connected with others/family/visitors/staff [] Distress [] Loneliness/isolation [] Abandonment Spirituality of Patient [] Person of Xenia [] Attends Denominational of their Xenia [] Believes in Prayer [] Reads Bible or Mormon materials [] There are Spiritual issues to be addressed Shoe Stock Associate Interventions [] Prayer [] Active listening [] Non-anxious presence [] Spiritual/emotional support [] Crisis/trauma care [] Spiritual counseling [] Bereavement support [] Provided bereavement packet [] Provided Bible/devotional materials [] Provided toy/stuffed animal, coloring book to patient or family member [] Provided Communion [] Anointing/[place] [] Salvation [] Completed spiritual assessment [] Other: Impact on Illness or Injury [] Angry [] Fearful [] Anxious [] Often cries [] Exhaustion [] Unable to work [] Unable to attend episcopal [] Unable to walk/stand [] Unable to read [] Unable to drive [] Unable to eat/drink [] Unable to sleep [] Unable to be with family [] Patient intubated [] Other: Summary upset about meds Time spent with patient 5 mins
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
--- NOTE | 2023-04-07 09:51 | PC.NURSE ---
Lawn Care Technician knocks on door, enters room and greets patient by name. Lawn Care Technician says Good morning Gareth I'm going to grab your vitals if that's okay? Patient says yeah and Lawn Care Technician begins recording vitals. Lawn Care Technician then asks patient to raise his arm in order to put the blood pressure cuff on. Patient does not respond so Lawn Care Technician ask again if he can raise his arm up. Patient responds with No im not doing that. Fuck you and get out of my God damn room. Get out of my room you mother fucker or else i'll make you get out. Lawn Care Technician responds with okay and leaves room.
--- NOTE | 2023-04-07 11:00 | PC.NURSE ---
Soil Chemist knocks on door and enter rooms and says to patient, Ephraim Servin can i grab your blood sugar real quick? . Patient says yes. Soil Chemist prepares everything needed to take blood sugar and then does the procedure. Patient then says So, what are we doing? Soil Chemist says we are taking your blood sugar. . Patient then says Well i dont know why we are taking my blood sugar when i'm not even fucking diabetic. Soil Chemist says i am just doing what the nurses told me to. Patient says well you better not come back in here taking any blood sugars anymore or else ill chew your ass out and i mean it! . Soil Chemist says okay sir then leaves. Patient then tell the Soil Chemist to go get his nurse and them screams in his room.
--- NOTE | 2023-04-07 11:15 | PC.NURSE ---
Patient refuses blood sugar checks. TEAM SUPERVISOR went in his room to perform accucheck and patient used profanity towards him and screamed loudly NURSE I NEED THE FUCKING NURSE GET THE FUCKING NURSE IN HERE Nurse went in the room and patient said WHY THE FUCK ARE THEY TRYING TO CHECK MY FUCKING BLOOD SUGAR IM NOT FUCKING DIABETIC. IF THAT BOY COMES IN HERE IM GOING TO SLAP HIM UPSIDE THE FUCKING HEAD KEEP THAT FUCKING DWEEB OUT OF MY FUCKING ROOM
--- NOTE | 2023-04-07 11:16 | PC.NURSE ---
Patient confronted about behaviors reported by nursing staff myself and security patient advise that his behaviors of yelling an cussing at staff was not acceptable behavior patient stated then just kick me the fuck out of here patient assured by staff that we wanted him to have medical treatment and get better but the behavior was unacceptable. Patient was explained his right to refuse treatment and the power to leave on his on will. patient denied treating staff inappropriately I assured him that I was out side the room when the most recent event started to happen and patient shut down and stated Melody collazo, Get Out
[2023-04-07 11:23] LABS: Glucose Point of Care 97 mg/dL (70-110)
[2023-04-07 12:21] LABS: Add Urine Microscopic? YES; Bilirubin Urine Neg (Negative); Blood Urine 3+ (Negative); Glucose Urine UA Norm (Normal); Ketones Urine Negative (Negative); Leukocyte Esterase Urine 1+ (Negative); Nitrate Urine Negative (Negative); Protein Urine Neg (Negative); Urine Appearance Clear (CLEAR); Urine Color Yellow (Yellow); Urobilinogen Urine 1 mg/dL (Negative); pH Urine 6 (5-7)
[2023-04-07 12:22] LABS: Amphetamines Screen Urine Negative (Negative); Barbiturates Screen Urine Negative (Negative); Benzodiazepines Screen Urine Positive (Negative); Cocaine Screen Urine Negative (Negative); Opiate Screen Urine Negative (Negative); PCP Screen Urine Negative (Negative); THC Screen Urine Negative (Negative)
[2023-04-07 12:28] LABS: Alanine Aminotransferase 54 U/L (0-41); Alkaline Phosphatase 79 U/L (40-130); Anion Gap 12.2 (5-19); Aspartate Amino Transferase 32 U/L (0-40); Blood Urea Nitrogen 25 mg/dL (8-23); Calcium 8.3 mg/dL (8.5-10.5); Carbon Dioxide 32 mmol/L (22-29); Chloride 100 mmol/L (98-107); Cholesterol 113 mg/dL (0-200); Globulin 3.3 g/dL (1.3-4.6); Glucose 98 mg/dL (65-115); HDL Cholesterol 29 mg/dL (60-100); LDL Cholesterol Calculated 56 mg/dL (50-129); LDL HDL Ratio 1.93 RATIO (0.00-3.22); Magnesium 1.8 mg/dL (1.7-2.3); Osmolality Calculated 294 mOsm/kg (285-295); Phosphorus 3.1 mg/dL (2.5-4.5); Potassium 4.2 mmol/L (3.5-5.1); Sodium 140 mmol/L (136-145); Total Bilirubin 0.2 mg/dL (0.15-1.2); Total Protein 5.3 g/dL (6.6-8.7); Triglycerides 139 mg/dL (0-150)
[2023-04-07 12:36] LABS: RBC Urine 15-25 /hpf (0-2); Squamous Epithelial Cell Urine 0-4 /hpf (0-5)
[2023-04-07 12:37] LABS: Add Urine Culture? Yes
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
[2023-04-07] MEDS: metoprolol tartrate 50 mg Tablet 75 MG PO (21:01)
[2023-04-08] VITALS (12 sets, daily range): BP systolic 104–135; BP diastolic 75–85; PULSE 86–105; RESP 16–22; TEMP 36.6–36.7; O2SAT 90–98
[2023-04-08] MEDS: piperacillin-tazobactam 3.375 GM in sodium chloride 0.9% (plus) 50 ML IV (00:13)
[2023-04-08] MEDS: ipratropium-albuterol 3 mL Neb INHALATION ×4 (01:50→11:22)
[2023-04-08] MEDS: vancomycin 1,500 MG/300 ML PIGGYBACK 150 MG IV (05:08)
[2023-04-08 05:30] LABS: Vancomycin Trough 9.7 ug/mL (10-15)
[2023-04-08] MEDS: budesonide 0.5 mg/2 mL Neb INHALATION (08:01)
[2023-04-08] MEDS: FUROsemide 40 mg Tablet PO (08:26)
[2023-04-08] MEDS: apixaban 5 mg Tablet PO (08:26)
[2023-04-08] MEDS: amiodarone 200 mg Tablet PO (08:26)
[2023-04-08] MEDS: metoprolol tartrate 50 mg Tablet 75 MG PO (08:27)
[2023-04-08 11:07] LABS: Basophils % 0.3 %; Eosinophils # 0.4 10^3/uL (0.0-0.8); Eosinophils % 3.7 %; Hematocrit 47.3 % (42.0-52.0); Hemoglobin 14.2 g/dL (11.7-16.6); Lymphocytes # 1.1 10^3/uL (0.8-4.8); Lymphocytes % 9.4 %; Mean Corpuscular Hemoglobin 27.3 pg (28.0-34.0); Mean Corpuscular Volume 90.8 fl (80-94); Mean Platelet Volume 9.3 fL (7.4-10.4); Monocytes # 0.9 10^3/uL (0.2-0.9); Monocytes % 7.4 %; Neutrophils # 8.44 10^3/uL (1.8-7.7); Neutrophils % 73.1 %; Nucleated Red Blood Cells % 0 %; Platelet Count 349 10^3/cmm (130-400); Red Blood Count 5.21 10^6/uL (4.1-5.3); Red Cell Distribution Width 15.5 % (12.1-15.1); White Blood Count 11.6 10^3/uL (4.0-10.0)
[2023-04-08 11:34] LABS: Slide Review Slide Review Perform
--- NOTE | 2023-04-08 12:15 | P.DS_ITS ---
Discharge Providers Date of Admission: 04/06/23 14:57 Date of Discharge: April 08, 2023 Attending Provider at Admission: aVhe Lzoano MD Attending Provider at Discharge: Vahe Lozano MD Primary Care Provider: Sloan Arias MD Diagnoses at Discharge Discharge Diagnosis (1) Cellulitis: Status: Acute (2) Acute on chronic respiratory failure with hypoxia and hypercapnia: Status: Acute (3) (HFpEF) heart failure with preserved ejection fraction: Status: Acute Qualifiers: Heart failure chronicity: chronic Qualified Code(s): I50.32 - Chronic diastolic (congestive) heart failure (4) Atrial fibrillation with RVR: Status: Acute (5) Coag negative Staphylococcus bacteremia: Status: Acute (6) Sepsis: Status: Acute (7) COPD exacerbation: Status: Acute (8) Non-compliance: Status: Acute (9) Right heart failure with reduced right ventricular function: Status: Acute Reason for Visit Reason for Visit: SOB Hospital Course Hospital Course Gareth Pickering is a 62 year old male with past medical history of advanced COPD on home oxygen of 5 L, atrial fibrillation with rapid ventricular response, noncompliant, aggressive behavior, hyperlipidemia, history of leaving AGAINST MEDICAL ADVICE multiple times in the past who was recently in the hospital from 04/01 to 04/05 when he left AGAINST MEDICAL ADVICE.? On that visit he was being treated for COPD exacerbation along with CHF exacerbation in setting of atrial fibrillation with rapid ventricular response and left leg cellulitis leading to altered mental status. Patient returns to the ER today complaining of shortness of breath found to be in atrial fibrillation with rapid ventricular response.? In the ER he was placed back on oxygen supplementation, given IV and oral metoprolol 100 mg along with oral amiodarone after which his heart rate improved down to 60s. Examination patient is awake and alert, able to have complete conversation, agreeable to stay for long-term To complete the course of medications.? States this time his friend made him come to the hospital and will have to stay because his friend is asking him to the same.? He states his friend lets him park his camper at his property and if he leaves early he will not be allowed to stay there anymore.? He is complaining of shortness of breath denies any chest pain, nausea or vomiting.? Does not remember taking medications today or yesterday. Patient was admitted to the hospital for further evaluation and management. He was started on IV diuresis and his home oral medications for atrial fibrillation with rapid ventricular response. On review of labs from his previous admission few days ago Blood culture at that time 1 out of 4 bottles were positive for staph hominis. Patient also has blood culture positive on his previous admission few months ago but was never worked up as he had left AMA. Repeat blood cultures were sent. He was started on broad-spectrum IV antibiotics along with wound care for his lower limb cellulitis. On previous admission lower limb Dopplers were done which ruled out DVT and CT lower leg rule out osteomyelitis or abscess. Patient did have 3 episodes of agitation and inappropriate behavior with ancillary staff but after talking to him in detail he apologized and was more compliant. He has been discharged in hemodynamically stable condition. He is not to take Cardizem anymore. Instead he will take amiodarone 200 mg twice daily for next 1 week followed by 200 mg daily. His dose of metoprolol has been continued. He will take linezolid twice daily for next 14 days along with Levaquin once daily for next 7 days. His dose of torsemide has been increased to 40 mg daily. Patient was advised in detail to have fluid restriction up to 1500 cc but he stated it is very important for him to drink more and more water otherwise he feels flushed. Given the above he was asked to increase his torsemide which she was agreeable to. He is to follow-up with his primary care provider within next 1 week to 10 days for a repeat CMP. Physical Exam Narrative: General: No acute distress, AO x3, NC oxygen supplementation HEENT: PERRLA, pupils bilaterally equal and reactive Chest: Bilateral bronchial breath sounds all over lung bonilla with occasional rhonchi and crackles CVS: S1-S2 irregularly irregular, no murmurs, no tachycardia, no gallops, no rubs Abdomen: Soft, nontender, no organomegaly, bowel sounds present, morbidly obese Neuro: No focal deficits, no facial deformity, AO x3, power 5/5 in all limbs Extremities: Left leg swollen, erythematous, superficial abrasion present on bilateral shins with dried scab without any drainage Urinary Catheter Management: Knight: Cath Placed During This Visit: yes Reason for Continuing Indwelling Catheter: Other Urinary Catheter Date of Insertion: 04/06/23 Urinary Catheter Time of Insertion: 19:18 Discharge Data Studies Completed and Pending Completed Studies During Hospitalization Category Date Time Status CXRP [XR chest 1V portable [id number]] Routine Exams 04/06/23 21:16 Completed XR chest 1V portable [id number] Stat Exams 04/06/23 10:50 Completed Pending at discharge Category Date Time Status Blood Culture Stat Lab 04/06/23 21:15 Results Complete Blood Count w/Auto AM LABS Lab 04/09/23 04:00 Ordered Comprehensive Metabolic Panel AM LABS Lab 04/09/23 04:00 Ordered Comprehensive Metabolic Panel Routine Lab 04/08/23 12:06 Ordered Sputum Culture and Gram Stain Routine Lab 04/07/23 16:06 Uncollected Urine Culture Routine Lab 04/06/23 12:00 Received Radiology Impressions Chest X-Ray 04/06/23 21:16 IMPRESSION: 1. Right-sided PICC line with distal tip overlying SVC. This is new when compared to the previous study. 2. Cardiomegaly is present. 3. No acute abnormality demonstrated. Echocardiogram: 04/01/2023: CONCLUSIONS ?The ventricle is poorly seen due to COPD.? It appears grossly to ?be normal in size.? Ejection fraction cannot be specifically ?determined but it appears to be at least lower limit of normal.? ?Wall motion disturbances and diastolic dysfunction cannot be ?determined. ?Moderately increased right ventricular size. Mildly decreased ?right ventricular systolic function. Normal right ventricular ?systolic pressure. ?Moderately increased right atrial size. ?Mildly increased left atrial size. ?The previous study was done in September of this year.? Noted ?previously was very mild pulmonary artery hypertension not noted ?on this study however there was no adequate evaluation of the ?tricuspid regurgitation jet.? Otherwise the study has not ?changed. ?Dr. Mariusz Martínez MD ?(Electronically Signed) ?Final Date:? ? ? 01 April 2023 Laboratory Results WBC 11.6 10^3/uL (4.0-10.0) H 04/08/23 10:50 RBC 5.21 10^6/uL (4.1-5.3) 04/08/23 10:50 Hgb 14.2 g/dL (11.7-16.6) 04/08/23 10:50 Hct 47.3 % (42.0-52.0) 04/08/23 10:50 MCV 90.8 fl (80-94) 04/08/23 10:50 MCH 27.3 pg (28.0-34.0) L 04/08/23 10:50 MCHC 30.0 g/dL (30.0-36.0) 04/08/23 10:50 RDW 15.5 % (12.1-15.1) H 04/08/23 10:50 Plt Count 349 10^3/cmm (130-400) 04/08/23 10:50 MPV 9.3 fL (7.4-10.4) 04/08/23 10:50 Neut % (Auto) 73.1 % 04/08/23 10:50 Lymph % (Auto) 9.4 % 04/08/23 10:50 [place] % (Auto) 7.4 % 04/08/23 10:50 Eos % (Auto) 3.7 % 04/08/23 10:50 Baso % (Auto) 0.3 % 04/08/23 10:50 Neut # (Auto) 8.44 10^3/uL (1.8-7.7) H 04/08/23 10:50 Lymph # (Auto) 1.1 10^3/uL (0.8-4.8) 04/08/23 10:50 [place] # (Auto) 0.9 10^3/uL (0.2-0.9) 04/08/23 10:50 Eos # (Auto) 0.4 10^3/uL (0.0-0.8) 04/08/23 10:50 Baso # (Auto) 0.0 10^3/uL (0.0-0.1) 04/08/23 10:50 Nucleated RBC % (auto) 0 % 04/08/23 10:50 Nucleated RBCs # 0.0 /100WBC 04/08/23 10:50 Specimen Type Arterial 04/06/23 10:51 Sample Site Radial, right 04/06/23 10:51 ABG pH 7.42 (7.35-7.45) 04/06/23 10:51 ABG pCO2 56.2 mmHg (35-45) H 04/06/23 10:51 ABG pO2 76.0 mmHg (80.0-100.0) L 04/06/23 10:51 ABG HCO3 36.4 mmol/L (22-26) H 04/06/23 10:51 ABG O2 Saturation 95.9 04/06/23 10:51 ABG Base Excess 9.6 mmol/L (-2.0-2.0) H 04/06/23 10:51 Jacob Test Pos 04/06/23 10:51 A-a O2 Gradient 0.6 mmHg (5-10) L 04/06/23 10:51 Hematocrit 46.5 % (42-52) 04/06/23 10:51 Hgb O2 Saturation 92.8 % (95-100) L 04/06/23 10:51 Carboxyhemoglobin 2.9 %THgb (0.4-20.1) 04/06/23 10:51 Methemoglobin 0.3 % (0.4-1.5) L 04/06/23 10:51 Total Hemoglobin 15.2 g/dL (14-18) 04/06/23 10:51 Sodium 143.0 mmol/L (131-143) 04/06/23 10:51 Potassium 3.3 mmol/L (3.5-5.0) L 04/06/23 10:51 Glucose 122.0 mg/dL (70-115) H 04/06/23 10:51 Ionized Calcium 1.3 mmol/L (1.1-1.4) 04/06/23 10:51 O2 Delivery Device Nc 04/06/23 10:51 O2 Liters/Min 5.0 % 04/06/23 10:51 Skylights Assembler ID [place] 04/06/23 10:51 Sodium Cancelled 04/08/23 11:55 Potassium Cancelled 04/08/23 11:55 Chloride Cancelled 04/08/23 11:55 Carbon Dioxide Cancelled 04/08/23 11:55 Anion Gap Cancelled 04/08/23 11:55 BUN Cancelled 04/08/23 11:55 Creatinine Cancelled 04/08/23 11:55 GFR Calculation Cancelled 04/08/23 11:55 Glucose Cancelled 04/08/23 11:55 POC Glucose 97 mg/dL (70-110) 04/07/23 10:54 Calculated Osmolality Cancelled 04/08/23 11:55 Lactic Acid 1.3 mmol/L (0.5-2.2) 04/06/23 21:15 Calcium Cancelled 04/08/23 11:55 Phosphorus 3.1 mg/dL (2.5-4.5) 04/07/23 11:58 Magnesium 1.8 mg/dL (1.7-2.3) 04/07/23 11:58 Total Bilirubin Cancelled 04/08/23 11:55 AST Cancelled 04/08/23 11:55 ALT Cancelled 04/08/23 11:55 Alkaline Phosphatase Cancelled 04/08/23 11:55 Troponin T Baseline 51 ng/L (0-15) H 04/06/23 11:43 Troponin T 120 Minute 43.78 ng/L (0-15) H 04/06/23 13:45 Delta Troponin T -7.22 ABS# (0-10) L 04/06/23 13:45 Troponin T Hi Sens 6Hr 33.41 ng/L (0-15) H 04/06/23 21:15 Troponin T Hi Sens 6Hr Delta -17.59 ng/L (0-12) L 04/06/23 21:15 NT-Pro-B Natriuret Pep 2440 pg/mL (0-125) H 04/06/23 11:43 Total Protein Cancelled 04/08/23 11:55 Albumin Cancelled 04/08/23 11:55 Globulin Cancelled 04/08/23 11:55 Triglycerides 139 mg/dL (0-150) 04/07/23 11:58 Cholesterol 113 mg/dL (0-200) 04/07/23 11:58 LDL Cholesterol, Calc 56 mg/dL (50-129) 04/07/23 11:58 HDL Cholesterol 29 mg/dL (60-100) L 04/07/23 11:58 LDL/HDL Ratio 1.93 RATIO (0.00-3.22) 04/07/23 11:58 Cholesterol/HDL Ratio 3.90 mg/dL (1.0-5.00) 04/07/23 11:58 Procalcitonin 0.81 ng/mL (0-0.5) H 04/06/23 11:43 Urine Color Yellow (Yellow) 04/06/23 12:00 Urine Appearance Clear (CLEAR) 04/06/23 12:00 Urine pH 6 (5-7) 04/06/23 12:00 Ur Specific [place] 1.020 (1.005-1.030) 04/06/23 12:00 Urine Protein Neg (Negative) 04/06/23 12:00 Urine Glucose (UA) Norm (Normal) 04/06/23 12:00 Urine Ketones Negative (Negative) 04/06/23 12:00 Urine Blood 3+ (Negative) H 04/06/23 12:00 Urine Nitrate Negative (Negative) 04/06/23 12:00 Urine Bilirubin Neg (Negative) 04/06/23 12:00 Urine Urobilinogen 1 mg/dL (Negative) H 04/06/23 12:00 Ur Leukocyte Esterase 1+ (Negative) H 04/06/23 12:00 Urine RBC 15-25 /hpf (0-2) H 04/06/23 12:00 Urine WBC 10-15 /hpf (0-5) H 04/06/23 12:00 Ur Squamous Epith Cells 0-4 /hpf (0-5) H 04/06/23 12:00 Amorphous Sediment Not Reportable 04/06/23 12:00 Urine Bacteria None /hpf (NONE) 04/06/23 12:00 Vancomycin Trough 9.7 ug/mL (10-15) L 04/08/23 04:45 Urine Opiates Screen Negative ng/mL (Negative) 04/06/23 12:00 Ur Barbiturates Screen Negative ng/mL (Negative) 04/06/23 12:00 Ur Phencyclidine Scrn Negative ng/mL (Negative) 04/06/23 12:00 Ur Amphetamines Screen Negative ng/mL (Negative) 04/06/23 12:00 U Benzodiazepines Scrn Positive ng/mL (Negative) H 04/06/23 12:00 Urine Cocaine Screen Negative ng/mL (Negative) 04/06/23 12:00 U Marijuana (THC) Screen Negative ng/mL (Negative) 04/06/23 12:00 Ethyl Alcohol < 10 mg/dL (0-10) 04/06/23 11:43 Vitals Last Vital Signs Temp 97.8 F 04/08/23 07:43 Pulse 86 04/08/23 11:27 Resp 16 04/08/23 11:22 BP 108/77 04/08/23 07:43 Pulse Ox 93 04/08/23 11:22 O2 Del Method Nasal Cannula 04/08/23 11:22 O2 Flow Rate 4 04/08/23 11:22 Discharge Plan Discharge Patient Disposition: Home Condition: Stable Prescriptions: New amiodarone [Pacerone] 200 mg Tablet 200 mg PO BID Qty: 60 0RF Rx Instructions: Take 200 mg twice daily for next 1 week followed by 200 mg daily. levofloxacin 500 mg tablet 500 mg PO Q24H 7 Days Qty: 7 0RF linezolid 600 mg tablet 600 mg PO BID 14 Days Qty: 28 0RF Continued metoprolol tartrate 100 mg tablet 100 mg PO BID 90 Days Qty: 180 2RF potassium chloride 10 mEq tablet extended release 20 meq PO DAILY Qty: 60 0RF Eliquis 5 mg tablet 5 mg PO BID albuterol sulfate 2.5 mg /3 mL (0.083 %) solution for nebulization 2.5 mg inhalation Q6H PRN (Reason: shortness of breath or wheezing) Qty: 180 5RF Rx Instructions: to use while DuoNeb is unavailable ipratropium-albuterol 0.5 mg-3 mg(2.5 mg base)/3 mL solution for nebulization 3 ml inhalation Q6H PRN (Reason: shortness of breath or wheezing) 30 Days Qty: 180 3RF Anoro Ellipta 62.5-25 mcg/actuation blister with device 1 inh inhalation DAILY Qty: 60 1RF nystatin 100,000 unit/gram cream 1 applic topical DAILY PRN (Reason: UNKNOWN) sildenafil (pulm.hypertension) 20 mg tablet 20 mg PO DAILY MDD 4 TABS PRN (Reason: sexual activity) Rx Instructions: use 30 minutes before intercourse. max 4 tablets per 24hrs budesonide 0.5 mg/2 mL suspension for nebulization 0.5 mg inhalation BID Qty: 60 6RF Changed torsemide 20 mg tablet 40 mg PO DAILY Qty: 60 0RF Discontinued Serevent Diskus 50 mcg/dose blister with device 2 inh inhalation BID Qty: 60 6RF Spiriva Respimat 1.25 mcg/actuation mist 2 puff inhalation DAILY Qty: 4 6RF diltiazem HCl 180 mg capsule,extended release 24hr 180 mg PO QAM Discharge Orders: Discharge Order (Routine); Ordered 04/08/23 Ordered By: aVhe Lozano Referrals: Sloan Arias MD [Primary Care Provider] - 7-10 days Discharge Diet: Regular Discharge Activity: Resume usual activity and Increase activity as tolerated Patient Instructions: Heart Failure (DC), CHF Stoplight, Opioid Safety Activity Restrictions/Additional Instructions: Multiple medication changes have been done. Continue taking metoprolol as before. Instead of Cardizem take amiodarone 200 mg. You will take amiodarone 200 mg twice daily for next 1 week followed by 200 mg daily. Dose of torsemide has been changed to 40 mg daily. Take antibiotics as scheduled. Take linezolid twice daily for next 14 days. Take Levaquin once daily for next 7 days. Please follow-up with a primary care provider within next 1 week to 10 days. You should have a repeat CMP when you visit with your PCP. Discharge Attestations Time Spent in Discharge Care*: greater than 30 min Specific Discharge Activities: educating patient, discussing with pcp/other providers, discussing with case management rn/social workers/dc planners, documenting/other paperwork and evaluating patient/reviewing data Status at Discharge: Cognitive status at discharge: mildly impaired cognition , Behavioral status at discharge: can be uncooperative , Functional status at discharge: independent ambulation , Overall status at discharge: patient is back to baseline Quality Metrics Clinical Quality Measures [ No reported AMI, CVA or VTE this stay] Coding Level of Care Code 62831 Total time (in minutes) for Discharge: 70 Diagnoses Cellulitis L03.90 Acute on chronic respiratory failure with hypoxia and hypercapnia J96.21; J96.22 (HFpEF) heart failure with preserved ejection fraction I50.32 Heart failure chronicity: chronic Atrial fibrillation with RVR I48.91 Coag negative Staphylococcus bacteremia R78.81; B95.7 Sepsis A41.9 COPD exacerbation J44.1 Non-compliance Z91.199 Right heart failure with reduced right ventricular function I50.810
== END 2023-04-08 15:04 | disposition home or self-care (01) | DRG 602 ==
LOC: ER 10:51 → CSU 14:57
PROVIDERS: Admitting Provider Student in an Organized Health Care Education/Training Program; Emergency Provider Family Medicine; PCP Family Medicine; Visit Provider Student in an Organized Health Care Education/Training Program
DX: L03.116 Cellulitis of left lower limb (principal); I50.33 Acute on chronic diastolic (congestive) heart failure; J44.1 Chronic obstructive pulmonary disease with (acute) exacerbation; I48.20 Chronic atrial fibrillation, unspecified; J96.12 Chronic respiratory failure with hypercapnia; J96.11 Chronic respiratory failure with hypoxia; Z99.81 Dependence on supplemental oxygen; Z91.199 Patient's noncompliance with other medical treatment and regimen due to unspecified reason; R45.1 Restlessness and agitation; E78.5 Hyperlipidemia, unspecified; Z79.01 Long term (current) use of anticoagulants; Z79.51 Long term (current) use of inhaled steroids; F17.210 Nicotine dependence, cigarettes, uncomplicated
CPT/HCPCS: 36415; 36416; 36569; 36592; 36600; 51702; 71045; 80051; 80053; 80061; 80202; 80306; 80307; 81001; 82330; 82805; 82962; 83605; 83735; 83880; 84100; 84145; 84484; 85025; 87040; 87086; 93005; 94640; 94664; 96374; 99285; J1940; J2543; J3370; J3490; J7626; Q0161

== ENCOUNTER → 2023-04-13 11:57 | Outpatient (BNVA) | payer MEDICAID, SELFPAY | PROVIDERS: PCP Family Medicine; Visit Provider Internal Medicine Cardiovascular Disease | DX: I48.11 Longstanding persistent atrial fibrillation (principal); Z91.199 Patient's noncompliance with other medical treatment and regimen due to unspecified reason; J96.21 Acute and chronic respiratory failure with hypoxia; J96.22 Acute and chronic respiratory failure with hypercapnia; F19.10 Other psychoactive substance abuse, uncomplicated; J44.1 Chronic obstructive pulmonary disease with (acute) exacerbation; E78.5 Hyperlipidemia, unspecified; F17.210 Nicotine dependence, cigarettes, uncomplicated; Z79.01 Long term (current) use of anticoagulants | CPT/HCPCS: 99215 ==

== ENCOUNTER 2023-04-21 14:56 | Emergency (ER) | payer MEDICAID, SELFPAY ==
[2023-04-21] VITALS (7 sets, daily range): BP systolic 105–127; BP diastolic 78–94; PULSE 68–124; RESP 16; TEMP 36.7; O2SAT 91–95; BMI 28.5
--- NOTE | 2023-04-21 15:19 | ECG_ITS ---
[facility] Test Date: 2023-04-21 Pat Name: Gareth Pickering Department: Room: Gender: Male Hospital Nurse Liaison: : 1960 Requested By: Oliver Amezcua Order Number: [id number] Natalya MD: Mario Hanson M.D. Measurements Intervals [place] Rate: 128 P: 0 KS: 0 QRS: 109 QRSD: 102 T: 5 QT: 305 QTc: 445 Interpretive Statements ATRIAL FIBRILLATION WITH RAPID VENTRICULAR RESPONSE RIGHT AXIS DEVIATION [QRS AXIS > 100] INCOMPLETE RIGHT BUNDLE BRANCH BLOCK [90+ ms QRS DURATION, TERMINAL R IN V1/V2, 40+ ms S IN I/aVL/V4/V5/V6] SEPTAL MYOCARDIAL INFARCTION , PROBABLY OLD [40+ ms Q WAVE IN V1/V2] Compared to ECG 04/06/2023 17:08:18 Incomplete right bundle-branch block now present Right bundle-branch block no longer present Myocardial infarct finding still present Electronically Signed On 04-21-2023 23:39:07 CDT by Mario Hanson M.D. [email or web address]
--- NOTE | 2023-04-21 15:19 | XR_ITS ---
WS: [id number] EXAMINATION: XR chest 1V portable [id number] REASON FOR EXAM: chest pain, dyspnea COMPARISON: 04/06/2023 ORDER DATE: 04/21/2023 3:22 PM TECHNIQUE: A single, portable frontal chest x-ray was obtained. X-RAY FINDINGS: Lungs: No consolidative pulmonary infiltrate noted. Pleural spaces: No pleural effusion. No pneumothorax. Heart/Mediastinum: Cardiomegaly is present. Bones/joints: Status post ORIF of left rib fractures. No acute osseous abnormality is demonstrated. XR/XR chest 1V portable [id number] IMPRESSION: No acute pulmonary change
[2023-04-21 15:29] LABS: Basophils % 0.8 %; Eosinophils # 0.1 10^3/uL (0.0-0.8); Hematocrit 49.1 % (42.0-52.0); Lymphocytes # 0.9 10^3/uL (0.8-4.8); Lymphocytes % 18.1 %; Mean Corpuscular HGB Conc 30.5 g/dL (30.0-36.0); Mean Corpuscular Hemoglobin 27.1 pg (28.0-34.0); Mean Corpuscular Volume 88.6 fl (80-94); Mean Platelet Volume 9.1 fL (7.4-10.4); Monocytes # 0.3 10^3/uL (0.2-0.9); Neutrophils # 3.55 10^3/uL (1.8-7.7); Neutrophils % 72.9 %; Nucleated Red Blood Cells % 0 %; Platelet Count 286 10^3/cmm (130-400); Red Blood Count 5.54 10^6/uL (4.1-5.3); Red Cell Distribution Width 16.8 % (12.1-15.1); White Blood Count 4.9 10^3/uL (4.0-10.0)
[2023-04-21] MEDS: ipratropium-albuterol 3 mL Neb INHALATION (15:33)
[2023-04-21 15:40] LABS: INR 1.16 (0.8-1.2)
--- NOTE | 2023-04-21 15:40 | W.ED.SOB ---
HPI - SOB/Dyspnea General: Chief Complaint: Shortness of Breath/Dyspnea Stated Complaint: resp distress/chest pain Time Seen by Provider: 04/21/23 14:59 History of Present Illness: HPI Narrative: Presents to the ER from the [facility] department with complaints of chest pain and shortness of breath that started this morning. Patient complains of his left sharp chest pain that does not radiate. Patient refused all forms of treatment from EMS on route. Patient does not appear to be in respiratory distress and appears in no acute distress at this time. Patient has a history of being noncompliant with multiple treatments and leaving AMA on several occasions. Review of Systems General: Reports: 10 or more systems reviewed and unremarkable except in HPI and below PFSH ED PFSH: Medical History Acute and chronic respiratory failure with hypoxia Acute exacerbation of chronic obstructive airways disease Atrial fibrillation Atrial fibrillation with RVR COPD (chronic obstructive pulmonary disease) Hyperlipidemia Rib deformity Right heart failure with reduced right ventricular function Surgical History History of colon surgery Family History Other CAD (coronary artery disease) Hypertension Lung disease Denies family history of Diabetes Clotting disorder Dementia Hyperlipidemia Psychiatric illness Chronic kidney disease (CKD) Anesthesia complication Bleeding disorder Cancer Stroke Social History Smoking and tobacco status: current every day smoker cigarettes Packs smoked per day: 0.5 Alcohol intake: former Substance/Drug Use: never Lives independently: Yes Current occupational status: disabled Current gender identity: Male Special jeri needs: No Agree to transfusion: Yes Physical Exam Const: COMMON NORMALS: no acute distress, average body habitus, patient oriented x3, no limitations, healthy appearing, alert and well nourished HENMT: COMMON NORMALS: normocephalic, atraumatic, hearing grossly normal bilaterally, external ears normal, Normal external nose present and moist oral mucous membranes HEAD & SCALP: normocephalic and atraumatic NOSE: Normal external nose present EXTERNAL EAR: Yes external ears normal Eye: COMMON NORMALS: Equal, round and reactive pupils present, EOMs intact bilaterally, conjunctivae normal and no scleral icterus CONJUNCTIVA: Yes conjunctivae normal PUPIL: Yes Equal, round and reactive pupils present Neck/C-Spine: COMMON NORMALS: full ROM, no lymphadenopathy, supple, no meningeal signs, no JVD and Thyroid normal THYROID: Thyroid normal Chest: COMMONS NORMALS: normal inspection of the chest and normal palpation of entire chest wall Resp: COMMON NORMALS: normal respiratory effort, No retractions and No use of accessory muscles; negative for clear to auscultation bilaterally (Wheezing bilaterally decreased breath sounds.) AUSCULTATION: not clear to auscultation bilaterally (Wheezing bilaterally decreased breath sounds.) Cardio: COMMON NORMALS: no JVD, regular rate, regular rhythm (Irregularly irregular rhythm), S1 normal heart sound present, S2 normal heart sound present, No gallops present (Cardio) and No clicks present (Cardio) RATE: regular rate RHYTHM: regular rhythm (Irregularly irregular rhythm) HEART SOUNDS: S1 normal heart sound present and S2 normal heart sound present GI: COMMON NORMALS: Normal to inspection, nondistended, normoactive bowel sounds present, Soft to palpation, non-tender, No hepatosplenomegaly present and no masses PALPATION: Yes Soft to palpation and Yes No hepatosplenomegaly present : COMMON NORMALS: Yes no CVA tenderness BLADDER/KIDNEY EXAM: Yes no CVA tenderness Back/Pelvis: COMMON NORMALS: no CVA tenderness Neuro: COMMON NORMALS: patient oriented x3 SENSORIUM/ORIENTATION: Yes alert MENINGEAL SIGNS: Yes no meningeal signs Course Vital Signs: Vital signs: Vital Signs Temperature 98.1 F 04/21/23 14:59 Pulse Rate 124 H 04/21/23 18:00 Respiratory Rate 16 04/21/23 18:00 Blood Pressure 115/94 04/21/23 18:00 Pulse Oximetry 93 04/21/23 18:00 Oxygen Delivery Me thod Nasal Cannula 04/21/23 15:39 Oxygen Flow Rate 3 04/21/23 15:39 MDM - SOB/Dyspnea Medical Decision Making Patient presents to the ER with chest pain shortness of breath from the [facility] department. Patient is noncompliant with his medication. Physical exam was performed lab work was obtained all of which was essentially benign for the patient. Patient was given 1 DuoNeb treatment. Upon reexam of the patient was found sleeping in his bed comfortably in no acute distress. Patient be discharged home Differential Diagnosis Likely acute exacerbation of chronic obstructive airways disease; Unlikely congestive heart failure, community acquired pneumonia, asthma with exacerbation or pulmonary embolism Medical Records I reviewed the patient's medical records. Lab Data I reviewed the patient's lab results. 04/21/23 15:15 04/21/23 15:15 Labs/Radiology: Radiology Impressions Chest X-Ray 04/21/23 15:19 IMPRESSION: No acute pulmonary change Laboratory Results WBC 4.9 10^3/uL (4.0-10.0) 04/21/23 15:15 RBC 5.54 10^6/uL (4.1-5.3) H 04/21/23 15:15 Hgb 15.0 g/dL (11.7-16.6) 04/21/23 15:15 Hct 49.1 % (42.0-52.0) 04/21/23 15:15 MCV 88.6 fl (80-94) 04/21/23 15:15 MCH 27.1 pg (28.0-34.0) L 04/21/23 15:15 MCHC 30.5 g/dL (30.0-36.0) 04/21/23 15:15 RDW 16.8 % (12.1-15.1) H 04/21/23 15:15 Plt Count 286 10^3/cmm (130-400) 04/21/23 15:15 MPV 9.1 fL (7.4-10.4) 04/21/23 15:15 Neut % (Auto) 72.9 % 04/21/23 15:15 Lymph % (Auto) 18.1 % 04/21/23 15:15 Saline % (Auto) 7.0 % 04/21/23 15:15 Eos % (Auto) 1.0 % 04/21/23 15:15 Baso % (Auto) 0.8 % 04/21/23 15:15 Neut # (Auto) 3.55 10^3/uL (1.8-7.7) 04/21/23 15:15 Lymph # (Auto) 0.9 10^3/uL (0.8-4.8) 04/21/23 15:15 Saline # (Auto) 0.3 10^3/uL (0.2-0.9) 04/21/23 15:15 Eos # (Auto) 0.1 10^3/uL (0.0-0.8) 04/21/23 15:15 Baso # (Auto) 0.0 10^3/uL (0.0-0.1) 04/21/23 15:15 Nucleated RBC % (auto) 0 % 04/21/23 15:15 Nucleated RBCs # 0.0 /100WBC 04/21/23 15:15 PT 15.20 SECONDS (12.1-14.9) H 04/21/23 15:15 INR 1.16 (0.8-1.2) 04/21/23 15:15 Sodium 143 mmol/L (136-145) 04/21/23 15:15 Potassium 3.8 mmol/L (3.5-5.1) 04/21/23 15:15 Chloride 98 mmol/L (98-107) 04/21/23 15:15 Carbon Dioxide 34 mmol/L (22-29) H 04/21/23 15:15 Anion Gap 14.8 (5-19) 04/21/23 15:15 BUN 27 mg/dL (8-23) H 04/21/23 15:15 Creatinine 1.5 mg/dL (0.7-1.2) H 04/21/23 15:15 GFR Calculation 47.1 mL/min (90-130) L 04/21/23 15:15 Glucose 97 mg/dL (65-115) 04/21/23 15:15 Calculated Osmolality 301 mOsm/kg (285-295) H 04/21/23 15:15 Calcium 9.3 mg/dL (8.5-10.5) 04/21/23 15:15 Magnesium 1.9 mg/dL (1.7-2.3) 04/21/23 15:15 Total Bilirubin 0.6 mg/dL (0.15-1.2) 04/21/23 15:15 AST 26 U/L (0-40) 04/21/23 15:15 ALT 17 U/L (0-41) 04/21/23 15:15 Alkaline Phosphatase 79 U/L (40-130) 04/21/23 15:15 Troponin T Baseline 26 ng/L (0-15) H 04/21/23 15:15 Troponin T 120 Minute 19.61 ng/L (0-15) H 04/21/23 17:32 Delta Troponin T -6.39 ABS# (0-10) L 04/21/23 17:32 NT-Pro-B Natriuret Pep 900 pg/mL (0-125) H 04/21/23 15:15 Total Protein 7.2 g/dL (6.6-8.7) 04/21/23 15:15 Albumin 3.7 g/dL (3.5-5.2) 04/21/23 15:15 Globulin 3.5 g/dL (1.3-4.6) 04/21/23 15:15 EKG Data EKG 1: I personally reviewed and interpreted this EKG as follows: EKG Interpretation Date: 04/21/23 EKG interpretation time: 15:04 Prior EKG tracings: not available for review Interpretation: EKG showed ventricular rate 120 beats minute in A-fib with RVR type pattern, QRS duration 102, QTc 381, incomplete right bundle branch block, Q waves in V1 and V2 EKG 2: EKG Interpretation Date: 04/21/23 EKG interpretation time: 17:14 Prior EKG tracings: available for review Interpretation: EKG showed A-fib with RVR type pattern of 121 bpm, QRS duration 109, QTc of 397, incomplete right bundle branch block, Discharge Plan Discharge Patient Disposition: Home Clinical Impression: Oxygen dependent Afib Qualifiers: Atrial fibrillation type: longstanding persistent Qualified Code(s): I48.11 - Longstanding persistent atrial fibrillation Chest pain Qualifiers: Chest pain type: unspecified Qualified Code(s): R07.9 - Chest pain, unspecified Condition: Stable Prescriptions: No Action metoprolol tartrate 100 mg tablet 100 mg PO BID 90 Days Qty: 180 2RF potassium chloride 10 mEq tablet extended release 20 meq PO DAILY Qty: 60 0RF Eliquis 5 mg tablet 5 mg PO BID albuterol sulfate 2.5 mg /3 mL (0.083 %) solution for nebulization 2.5 mg inhalation Q6H PRN (Reason: shortness of breath or wheezing) Qty: 180 5RF Rx Instructions: to use while DuoNeb is unavailable ipratropium-albuterol 0.5 mg-3 mg(2.5 mg base)/3 mL solution for nebulization 3 ml inhalation Q6H PRN (Reason: shortness of breath or wheezing) 30 Days Qty: 180 3RF Anoro Ellipta 62.5-25 mcg/actuation blister with device 1 inh inhalation DAILY Qty: 60 1RF (DME) home fill oxygen concentrator See Rx Instructions .Route .MEDSUPPLY Qty: 1 0RF Rx Instructions: As directed, 6L NC Pacerone 200 mg Tablet 200 mg PO BID Qty: 60 0RF Rx Instructions: Take 200 mg twice daily for next 1 week followed by 200 mg daily. linezolid 600 mg tablet 600 mg PO BID 14 Days Qty: 28 0RF torsemide 20 mg tablet 40 mg PO DAILY Qty: 60 0RF budesonide 0.5 mg/2 mL suspension for nebulization 0.5 mg inhalation BID Qty: 60 6RF nystatin 100,000 unit/gram cream 1 applic topical DAILY PRN (Reason: UNKNOWN) sildenafil (pulm.hypertension) 20 mg tablet 20 mg PO DAILY MDD 4 TABS PRN (Reason: sexual activity) Rx Instructions: use 30 minutes before intercourse. max 4 tablets per 24hrs Discharge Orders: Discharge ED (Routine); Ordered 04/21/23 Ordered By: Oliver Amezcua Referrals: Sloan Arias MD [Primary Care Provider] - 7-10 days Patient Instructions: A-fib (Atrial Fibrillation) (ED), Chest Pain (ED) Activity Restrictions/Additional Instructions: Please follow-up with your family practice physician in the next 7 to 10 days or sooner as needed for further evaluation and treatment. Coding Level of Care Code ED Dye Lab Technician for Emily Talbot
[2023-04-21 15:52] LABS: Troponin(5th) Baseline 26 ng/L (0-15)
[2023-04-21 15:55] LABS: Alanine Aminotransferase 17 U/L (0-41); Albumin Level 3.7 g/dL (3.5-5.2); Alkaline Phosphatase 79 U/L (40-130); Aspartate Amino Transferase 26 U/L (0-40); Blood Urea Nitrogen 27 mg/dL (8-23); Calcium 9.3 mg/dL (8.5-10.5); Carbon Dioxide 34 mmol/L (22-29); Chloride 98 mmol/L (98-107); Globulin 3.5 g/dL (1.3-4.6); Glomerular Filtration Rate 47.1 mL/min (90-130); Glucose 97 mg/dL (65-115); Magnesium 1.9 mg/dL (1.7-2.3); NT Pro B Type Natriuretic Pept 900 pg/mL (0-125); Osmolality Calculated 301 mOsm/kg (285-295); Sodium 143 mmol/L (136-145); Total Bilirubin 0.6 mg/dL (0.15-1.2); Total Protein 7.2 g/dL (6.6-8.7)
[2023-04-21 16:02] LABS: Anion Gap 14.8 (5-19); Potassium 3.8 mmol/L (3.5-5.1)
--- NOTE | 2023-04-21 17:14 | ECG_ITS ---
[facility] Test Date: 2023-04-21 Pat Name: Gareth Pickering Department: Room: Gender: Male Barrel Filler: : 1960 Requested By: Oliver Amezcua Order Number: [id number] Hoang MD: Mario Hanson M.D. Measurements Intervals [place] Rate: 121 P: 0 ND: 0 QRS: 141 QRSD: 109 T: 42 QT: 325 QTc: 462 Interpretive Statements ATRIAL FIBRILLATION WITH RAPID VENTRICULAR RESPONSE LOW QRS VOLTAGE IN EXTREMITY LEADS [QRS DEFLECTION < 0.5 mV IN LIMB LEADS] INCOMPLETE RIGHT BUNDLE BRANCH BLOCK [90+ ms QRS DURATION, TERMINAL R IN V1/V2, 40+ ms S IN I/aVL/V4/V5/V6] LATERAL MYOCARDIAL INFARCTION , PROBABLY OLD [40+ ms Q WAVE AND/OR ST/T ABNORMALITY IN I/aVL/V5/V6] Compared to ECG 04/21/2023 15:04:13 Low QRS voltage now present Right-axis deviation no longer present Myocardial infarct finding still present Electronically Signed On 04-21-2023 23:40:01 CDT by Mario Hanson M.D. [id number]
[2023-04-21 18:05] LABS: Troponin 5 2HR 19.61 ng/L (0-15)
[2023-04-21 18:14] LABS: Troponin 5 2HR Delta -6.39 ABS# (0-10)
== END 2023-04-21 18:36 | disposition home or self-care (01) ==
PROVIDERS: Emergency Provider Emergency Medicine; PCP Family Medicine
DX: R07.9 Chest pain, unspecified (principal); I48.11 Longstanding persistent atrial fibrillation; Z99.81 Dependence on supplemental oxygen; Z79.01 Long term (current) use of anticoagulants; F17.210 Nicotine dependence, cigarettes, uncomplicated; J44.9 Chronic obstructive pulmonary disease, unspecified; E78.5 Hyperlipidemia, unspecified; I50.9 Heart failure, unspecified
CPT/HCPCS: 36415; 71045; 80053; 83735; 83880; 84484; 85025; 85610; 93005; 94640; 99285

== ENCOUNTER → 2023-05-19 15:00 | Outpatient (BNVA) | payer MEDICAID, SELFPAY | PROVIDERS: PCP Family Medicine; Visit Provider Internal Medicine | DX: I48.11 Longstanding persistent atrial fibrillation (principal); E78.5 Hyperlipidemia, unspecified; J44.9 Chronic obstructive pulmonary disease, unspecified; F17.210 Nicotine dependence, cigarettes, uncomplicated; Z79.01 Long term (current) use of anticoagulants | CPT/HCPCS: 99214 ==

== ENCOUNTER 2023-11-21 10:48 | Emergency (ER) | payer MEDICARE, MEDICAID, SELFPAY ==
[2023-11-21 10:51] VITALS: BP 117/78; PULSE 79; RESP 22; TEMP 36.5; O2SAT 94; BMI 29.1
--- NOTE | 2023-11-21 11:05 | ED_ITS ---
HPI - SOB/Dyspnea 2 General: Chief Complaint: Shortness of Breath/Dyspnea Stated Complaint: sob Time Seen by Provider: 11/21/23 10:55 Source: patient Mode of arrival: ambulatory Limitations: no limitations History of Present Illness: HPI Narrative: 63-year-old male who has a history of CH F along with COPD. States he has been having increasing cough congestion over the last week he states he feels like he is retaining fluid as well has had increasing dyspnea. He does wear 6 L of oxygen at baseline patient's oxygen sats here are normal on his 6 L. He has been noncompliant with his meds he states he has not taken his meds in a month. Does have a history of noncompliance. He denies any pain denies any fevers. Associated symptoms: Deny abdominal pain, chest pain, fever(s), nausea or vomiting Review of Systems 2 Const: Denies: fever(s), chills, body aches or change in appetite Eyes: Denies: eye discomfort ENMT: Denies: throat pain or dental pain Card: Denies: chest pain Resp: Reports: dyspnea and productive cough GI: Denies: abdominal pain, nausea, vomiting or diarrhea Musc: Denies: neck pain or back pain Skin/Breast: Denies: rash Neuro: Denies: headache(s) PFSH ED 2 PFSH: Medical History Right heart failure with reduced right ventricular function Rib deformity Acute and chronic respiratory failure with hypoxia Atrial fibrillation with RVR Acute exacerbation of chronic obstructive airways disease Hyperlipidemia Atrial fibrillation COPD (chronic obstructive pulmonary disease) Surgical History History of colon surgery Family History Other CAD (coronary artery disease) Hypertension Lung disease Denies family history of Diabetes Clotting disorder Dementia Hyperlipidemia Psychiatric illness Chronic kidney disease (CKD) Anesthesia complication Bleeding disorder Cancer Stroke Social History Smoking and tobacco/nicotine status: current every day tobacco/nicotine user cigarettes Packs smoked per day: 0.5 Alcohol intake: former Substance/Drug Use: never Lives independently: Yes Current occupational status: disabled Current gender identity: Male Special jeri needs: No Agree to transfusion: Yes Physical Exam 2 Const: COMMON NORMALS: patient oriented x3 HENMT: COMMON NORMALS: normocephalic and atraumatic HEAD & SCALP: n ormocephalic and atraumatic Eye: COMMON NORMALS: Equal, round and reactive pupils present and EOMs intact bilaterally PUPIL: Yes Equal, round and reactive pupils present Neck/C-Spine: COMMON NORMALS: full ROM and supple Chest: COMMONS NORMALS: normal inspection of the chest Resp: COMMON NORMALS: No retractions and No use of accessory muscles A USCULTATION: wheezes Cardio: COMMON NORMALS: regular rate and No murmurs present (Cardio) RATE: regular rate RHYTHM: abnormal rhythm irregularly irregular GI: COMMON NORMALS: Normal to inspection, nondistended, normoactive bowel sounds present, Soft to palpation, non-tender and no masses PALPATION: Yes Soft to palpation Extremity: COMMON NORMALS: full ROM NARRATIVE EXTREMITY EXAM: 2+ edema to LE Neuro: COMMON NORMALS: patient oriented x3, moves all extremities and no focal motor deficits Psych: COMMON NORMALS: mental status grossly normal, Normal thought process present and cooperative THOUGHT PROCESS: Normal thought process present Skin: COMMON NORMALS: no rashes or lesions noted and no wounds GENERAL SKIN EXAM: no rashes or lesions noted Course 2 Vital Signs: Vital signs: Vital Signs Temperature 97.7 F 11/21/23 10:51 Pulse Rate 89 11/21/23 13:43 Respiratory Rate 18 11/21/23 13:43 Blood Pressure 115/64 11/21/23 13:43 Pulse Oximetry 98 11/21/23 13:43 Oxygen Delivery Me thod Nasal Cannula 11/21/23 13:43 Oxygen Flow Rate 4.5 11/21/23 11:37 MDM - SOB/Dyspnea Medical Decision Making Patient presents here with dyspnea has history of CHF COPD does have some lower extremity swelling he is at his baseline oxygen here with no distress he has been noncompliant on his meds for months did give him IV Lasix here and Cardizem he is stable for discharge at this time we will refill his meds Biju is very important he takes his meds need to follow-up with PCP in a week as well return if worsening he understands agrees to plan Medical Records I reviewed the patient's medical records. Lab Data I reviewed the patient's lab results. 11/21/23 12:35 11/21/23 12:35 Labs/Radiology: Laboratory Results WBC 6.91 10^3/uL (3.29-11.43) 11/21/23 12:35 RBC 5.38 10^6/uL (3.85-5.65) 11/21/23 12:35 Hgb 15.40 g/dL (11.27-16.99) 11/21/23 12:35 Hct 49.3 % (37-53) 11/21/23 12:35 MCV 91.6 fl (82-101) 11/21/23 12:35 MCH 28.6 pg (27-33) 11/21/23 12:35 MCHC 31.2 g/dL (30-55) 11/21/23 12:35 RDW 15.2 % (12.1-15.1) H 11/21/23 12:35 Plt Count 260 10^3/cmm (157-399) 11/21/23 12:35 MPV 9.0 fL (7.4-10.4) 11/21/23 12:35 Neut % (Auto) 69.8 % 11/21/23 12:35 Lymph % (Auto) 19.4 % 11/21/23 12:35 [place] % (Auto) 9.1 % 11/21/23 12:35 Eos % (Auto) 1.2 % 11/21/23 12:35 Baso % (Auto) 0.4 % 11/21/23 12:35 Neut # (Auto) 4.82 10^3/uL (1.8-7.7) 11/21/23 12:35 Lymph # (Auto) 1.3 10^3/uL (0.8-4.8) 11/21/23 12:35 [place] # (Auto) 0.6 10^3/uL (0.2-0.9) 11/21/23 12:35 Eos # (Auto) 0.1 10^3/uL (0.0-0.8) 11/21/23 12:35 Baso # (Auto) 0.0 10^3/uL (0.0-0.1) 11/21/23 12:35 Nucleated RBC % (auto) 0.7 % 11/21/23 12:35 Nucleated RBCs # 0.1 /100WBC 11/21/23 12:35 Sodium 138 mmol/L (136-145) 11/21/23 12:35 Potassium 5.0 mmol/L (3.5-5.1) 11/21/23 12:35 Chloride 100 mmol/L (98-107) 11/21/23 12:35 Carbon Dioxide 32 mmol/L (22-29) H 11/21/23 12:35 Anion Gap 11.0 (5-19) 11/21/23 12:35 BUN 15 mg/dL (8-23) 11/21/23 12:35 Creatinine 0.8 mg/dL (0.7-1.2) 11/21/23 12:35 GFR Calculation 97.0 mL/min (90-130) 11/21/23 12:35 Glucose 80 mg/dL (65-115) 11/21/23 12:35 Calculated Osmolality 286 mOsm/kg (285-295) 11/21/23 12:35 Calcium 9.4 mg/dL (8.5-10.5) 11/21/23 12:35 Total Bilirubin 0.4 mg/dL (0.15-1.2) 11/21/23 12:35 AST 29 U/L (0-40) 11/21/23 12:35 ALT 19 U/L (0-41) 11/21/23 12:35 Alkaline Phosphatase 93 U/L (40-130) 11/21/23 12:35 NT-Pro-B Natriuret Pep 1001 pg/mL (0-125) H 11/21/23 12:35 Total Protein 7.3 g/dL (6.6-8.7) 11/21/23 12:35 Albumin 3.3 g/dL (3.5-5.2) L 11/21/23 12:35 Globulin 4.0 g/dL (1.3-4.6) 11/21/23 12:35 Influenza Type A Ag negative (Negative) 11/21/23 11:22 Influenza Type B Ag negative (Negative) 11/21/23 11:22 SARS-CoV-2 Ag (Rapid) negative (Negative) 11/21/23 11:22 All radiology interpretation(s) finalized by discharge EKG Data EKG 1: I personally reviewed and interpreted this EKG as follows: EKG Interpretation Date: 11/21/23 EKG interpretation time: 11:09 Interpretation: afib hr [address] or t wave abnormallites qrs 110 qtc 379 Discharge Plan Discharge Patient Disposition: Home Clinical Impression: Atrial fibrillation with RVR, COPD (chronic obstructive pulmonary disease) Congestive heart failure Qualifiers: Heart failure type: unspecified Heart failure chronicity: chronic Qualified Code(s): I50.9 - Heart failure, unspecified Condition: Stable Prescriptions: Continued ipratropium-albuterol 0.5 mg-3 mg(2.5 mg base)/3 mL solution for nebulization 3 ml inhalation Q6H PRN (Reason: shortness of breath or wheezing) 30 Days Qty: 180 3RF torsemide 20 mg tablet 40 mg PO DAILY Qty: 180 1RF albuterol sulfate 2.5 mg /3 mL (0.083 %) solution for nebulization 2.5 mg inhalation Q6H PRN (Reason: shortness of breath or wheezing) Qty: 180 5RF Rx Instructions: to use while DuoNeb is unavailable diltiazem HCl 180 mg capsule,extended release 24hr 180 mg PO DAILY Qty: 60 1RF potassium chloride 10 mEq tablet extended release 20 meq PO DAILY Qty: 180 1RF metoprolol tartrate 100 mg tablet 100 mg PO BID 90 Days Qty: 180 2RF budesonide 0.5 mg/2 mL suspension for nebulization 0.5 mg inhalation BID Qty: 60 6RF Eliquis 5 mg tablet 5 mg PO BID Qty: 60 0RF umeclidinium-vilanterol 62.5-25 mcg/actuation blister with device 1 inh inhalation DAILY Qty: 60 1RF No Action (DME) motorized electric scooter See Rx Instructions .Route .MEDSUPPLY Qty: 1 0RF Rx Instructions: As directed (DME) pulse oxymeter See Rx Instructions .Route .MEDSUPPLY Qty: 1 0RF Rx Instructions: As directed (DME) home fill oxygen concentrator See Rx Instructions .Route .MEDSUPPLY Qty: 1 0RF Rx Instructions: As directed, 6L NC (DME) Electric wheelchair See Rx Instructions .Route .MEDSUPPLY Qty: 1 0RF Rx Instructions: As directed Discharge Orders: Discharge ED (Routine); Ordered 11/21/23 Ordered By: Felipe Bah Referrals: Sloan Arias MD [Primary Care Provider] - 4-7 days Discharge Diet: Advance as tolerated Discharge Activity: Resume usual activity Patient Instructions: Heart Failure (ED), COPD (Chronic Obstructive Pulmonary Disease) (ED) Coding Level of Care Code ED Manufacturing Engineer Supervisor for Emily Talbot
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
--- NOTE | 2023-11-21 11:09 | ECG_ITS ---
[facility] Test Date: 2023-11-21 Pat Name: Gareth Pickering Department: Room: Gender: Male Offset Plate Preparation Supervisor: : 1960 Requested By: Felipe Bah Order Number: [id number] Natalya MD: Tino Lowery M.D. Measurements Intervals [place] Rate: 98 P: 0 WI: 0 QRS: 73 QRSD: 110 T: 44 QT: 324 QTc: 414 Interpretive Statements ATRIAL FIBRILLATION INCOMPLETE RIGHT BUNDLE BRANCH BLOCK [90+ ms QRS DURATION, TERMINAL R IN V1/V2, 40+ ms S IN I/aVL/V4/V5/V6] SEPTAL MYOCARDIAL INFARCTION , PROBABLY OLD [40+ ms Q WAVE IN V1/V2] Compared to ECG 04/21/2023 17:14:43 No significant changes Electronically Signed On 11-22-2023 0:37:22 CORPORATE DIRECTOR TALENT ASSESSMENT by Tino Lowery M.D. [id number]
--- NOTE | 2023-11-21 11:11 | PC.NURSE ---
Pt on bedside cardiac catheterization technologist
[2023-11-21] MEDS: ipratropium-albuterol 3 mL Neb INHALATION (11:35)
[2023-11-21 11:37] VITALS: PULSE 89; RESP 24; O2SAT 100
[2023-11-21 11:46] VITALS: PULSE 104; RESP 24
[2023-11-21 12:00] VITALS: BP 138/97; PULSE 92; RESP 16; O2SAT 100
--- NOTE | 2023-11-21 12:25 | PC.PHAR ---
PT STATES USES NEBULIZING SOLUTIONS ALUTEROL, BUSESONIDE, AND IPRATROPION ON A DAILY BASIS AND HAS THE ANORO ELLIPTA 62.0-25 MCG INHALER. PT STATES SHOULD BE TAKING DILTIAZEM HCL 180 MG DAILY, ELIQUIS 5 MG TWICE DAILY, METOPROLOL TART. 100MG TWICE DAILY, POTASSIUM CHL 10 MEQ DAILY, AND TORSEMIDE 20 MG 2 TABLETS DAILY. PT HAS NOT BEEN TAKING THESE MEDS FOR AWHILE. 11/21/23
[2023-11-21] MEDS: dexamethasone 10 mg/mL INJ IVP (12:43)
[2023-11-21] MEDS: FUROsemide 10 mg/mL SDV 10mL 80 MG IVP (12:43)
[2023-11-21 12:44] LABS: Influenza A by IFA negative (Negative); Influenza B by IFA negative (Negative); SARS Covid-2 Antigen negative (Negative)
[2023-11-21] MEDS: dilTIAZem 5 mg/mL SDV 5 mL 10 MG IVP (12:44)
[2023-11-21 12:55] LABS: Basophils % 0.4 %; Eosinophils # 0.1 10^3/uL (0.0-0.8); Eosinophils % 1.2 %; Hematocrit 49.3 % (37-53); Lymphocytes # 1.3 10^3/uL (0.8-4.8); Lymphocytes % 19.4 %; Mean Corpuscular HGB Conc 31.2 g/dL (30-55); Mean Corpuscular Hemoglobin 28.6 pg (27-33); Mean Corpuscular Volume 91.6 fl (82-101); Monocytes # 0.6 10^3/uL (0.2-0.9); Monocytes % 9.1 %; Neutrophils # 4.82 10^3/uL (1.8-7.7); Neutrophils % 69.8 %; Nucleated Red Blood Cells # 0.1 /100WBC; Nucleated Red Blood Cells % 0.7 %; Platelet Count 260 10^3/cmm (157-399); Red Blood Count 5.38 10^6/uL (3.85-5.65); Red Cell Distribution Width 15.2 % (12.1-15.1); White Blood Count 6.91 10^3/uL (3.29-11.43)
[2023-11-21 13:00] VITALS: BP 116/72; PULSE 80; RESP 18; O2SAT 98
[2023-11-21 13:20] LABS: Alanine Aminotransferase 19 U/L (0-41); Albumin Level 3.3 g/dL (3.5-5.2); Alkaline Phosphatase 93 U/L (40-130); Aspartate Amino Transferase 29 U/L (0-40); Blood Urea Nitrogen 15 mg/dL (8-23); Calcium 9.4 mg/dL (8.5-10.5); Carbon Dioxide 32 mmol/L (22-29); Chloride 100 mmol/L (98-107); Creatinine Clr Calc Pharmacy 111.4177; Glucose 80 mg/dL (65-115); NT Pro B Type Natriuretic Pept 1001 pg/mL (0-125); Osmolality Calculated 286 mOsm/kg (285-295); Sodium 138 mmol/L (136-145); Total Bilirubin 0.4 mg/dL (0.15-1.2); Total Protein 7.3 g/dL (6.6-8.7)
[2023-11-21 13:43] VITALS: BP 115/64; PULSE 89; RESP 18; O2SAT 98
== END 2023-11-21 14:23 | disposition home or self-care (01) ==
PROVIDERS: Emergency Provider Emergency Medicine; PCP Family Medicine
DX: J44.9 Chronic obstructive pulmonary disease, unspecified (principal); I48.20 Chronic atrial fibrillation, unspecified; I50.9 Heart failure, unspecified; Z79.01 Long term (current) use of anticoagulants; Z11.52 Encounter for screening for COVID-19; F17.210 Nicotine dependence, cigarettes, uncomplicated; E78.5 Hyperlipidemia, unspecified
CPT/HCPCS: 71045; 80053; 83880; 85025; 87426; 87804; 93005; 94640; 96374; 96375; 99285; J1100; J1940; J3490

== ENCOUNTER → 2023-11-22 15:26 | Outpatient (BNVA) | payer MEDICARE, MEDICAID, SELFPAY | PROVIDERS: PCP Family Medicine; Visit Provider Internal Medicine | DX: I48.11 Longstanding persistent atrial fibrillation (principal); E78.5 Hyperlipidemia, unspecified; J44.9 Chronic obstructive pulmonary disease, unspecified; F17.210 Nicotine dependence, cigarettes, uncomplicated; Z79.01 Long term (current) use of anticoagulants | CPT/HCPCS: 99214 ==

== ENCOUNTER 2023-12-31 15:59 | Emergency (ER) | payer MEDICARE, MEDICAID, SELFPAY ==
[2023-12-31] VITALS (18 sets, daily range): BP systolic 117–171; BP diastolic 94–104; PULSE 105–127; RESP 20–46; TEMP 36.7; O2SAT 89–98; BMI 29.1
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
--- NOTE | 2023-12-31 16:08 | ECG_ITS ---
[facility] Test Date: 2023-12-31 Pat Name: Gareth Pickering Department: Room: Gender: Male Net Software Architect: : 1960 Requested By: Francois Sharp Order Number: [id number] Hoang MD: Mario Hanson M.D. Measurements Intervals [place] Rate: 137 P: 0 VA: 0 QRS: 83 QRSD: 106 T: 30 QT: 257 QTc: 389 Interpretive Statements ATRIAL FIBRILLATION WITH RAPID VENTRICULAR RESPONSE INCOMPLETE RIGHT BUNDLE BRANCH BLOCK [90+ ms QRS DURATION, TERMINAL R IN V1/V2, 40+ ms S IN I/aVL/V4/V5/V6] Compared to ECG 11/21/2023 11:09:37 Myocardial infarct finding no longer present Electronically Signed On 01-01-2024 11:09:56 CDT by Mario Hanson M.D. [id number]
[2023-12-31 16:20] LABS: Alveolar-Arterial Oxygen Gradi 21.7 mmHg (5-10); Base Excess ABG 4.2 mmol/L (-2.0-2.0); Blood Gas Operator Identificat AMH; Blood Gas Sample Site Brachial, left; Blood Gas Sample Type Arterial; Carboxyhemoglobin 2.5 %THgb (0.4-20.1); HCO3 ABG 30.2 mmol/L (22-26); Ionized Calcium Level - ABG 1.3 mmol/L (1.1-1.4); Methemoglobin 0.4 % (0.4-1.5); Oxygen Device NC; Oxygen Saturation ABG 97.8; PO2 ABG 85.6 mmHg (80.0-100.0); PO2 FiO2 Ratio Arterial Blood 0; Potassium Level - ABG 4.2 mmol/L (3.5-5.0); Total Hemoglobin 15.3 g/dL (14-18)
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
[2023-12-31 16:41] LABS: Basophils % 0.2 %; Eosinophils % 0.1 %; Hematocrit 49.2 % (37-53); Lymphocytes # 1.3 10^3/uL (0.8-4.8); Lymphocytes % 9.9 %; Mean Corpuscular HGB Conc 31.5 g/dL (30-55); Mean Corpuscular Hemoglobin 28.2 pg (27-33); Mean Corpuscular Volume 89.5 fl (82-101); Mean Platelet Volume 8.9 fL (7.4-10.4); Monocytes # 0.9 10^3/uL (0.2-0.9); Monocytes % 6.5 %; Neutrophils # 11.13 10^3/uL (1.8-7.7); Nucleated Red Blood Cells % 0 %; Platelet Count 291 10^3/cmm (157-399); Red Cell Distribution Width 14.8 % (12.1-15.1); White Blood Count 13.42 10^3/uL (3.29-11.43)
[2023-12-31] MEDS: dilTIAZem 5 mg/mL SDV 5 mL 20 MG IVP (16:44)
[2023-12-31] MEDS: dilTIAZem 100 MG in sodium chloride 0.9% (add-van) 100 ML IV (16:58)
[2023-12-31 17:04] LABS: INR 1.15 (0.8-1.2)
[2023-12-31 17:05] LABS: Partial Thromboplastin Time 32.5 SECONDS (23.9-36.7)
[2023-12-31 17:10] LABS: Troponin(5th) Baseline 19 ng/L (0-15)
[2023-12-31 17:18] LABS: Alanine Aminotransferase 23 U/L (0-41); Albumin Level 3.6 g/dL (3.5-5.2); Alkaline Phosphatase 129 U/L (40-130); Blood Urea Nitrogen 17 mg/dL (8-23); Calcium 9.5 mg/dL (8.5-10.5); Carbon Dioxide 29 mmol/L (22-29); Chloride 98 mmol/L (98-107); Creatinine Clr Calc Pharmacy 111.4177; Globulin 3.3 g/dL (1.3-4.6); Glomerular Filtration Rate 113.2 mL/min (90-130); Glucose 106 mg/dL (65-115); NT Pro B Type Natriuretic Pept 1407 pg/mL (0-125); Osmolality Calculated 288 mOsm/kg (285-295); Sodium 138 mmol/L (136-145); Total Bilirubin 0.6 mg/dL (0.15-1.2); Total Protein 6.9 g/dL (6.6-8.7)
[2023-12-31 17:21] LABS: Anion Gap 15.9 (5-19); Aspartate Amino Transferase 28 U/L (0-40); Potassium 4.9 mmol/L (3.5-5.1)
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
--- NOTE | 2023-12-31 17:36 | PC.NURSE ---
per Dr. Sharp, [place] physician gave okay for pt to eat small amounts. pt eating 1 container of applesauce. pt informed of risks.
--- NOTE | 2023-12-31 17:39 | PC.NURSE ---
Report called: Report called to Cordell Haddad @[phone], no further questions at end of report.
--- NOTE | 2023-12-31 18:07 | ECG_ITS ---
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 Measurements Intervals [place] Rate: 113 P: 0 [place]: 0 QRS: 55 QRSD: 110 T: 26 QT: 298 QTc: 410 Interpretive Statements ATRIAL FIBRILLATION WITH RAPID VENTRICULAR RESPONSE INCOMPLETE RIGHT BUNDLE BRANCH BLOCK [90+ ms QRS DURATION, TERMINAL R IN V1/V2, 40+ ms S IN I/aVL/V4/V5/V6] Compared to ECG 12/31/2023 16:08:22 No significant changes Electronically Signed On 01-01-2024 11:18:13 CDT by Mario Hanson M.D. [email or web address]
[2023-12-31 19:26] LABS: Troponin 5 2HR 17.36 ng/L (0-15); Troponin 5 2HR Delta -1.64 ABS# (0-10)
== END 2023-12-31 18:42 | disposition short-term general hospital (02) ==
PROVIDERS: Emergency Provider Internal Medicine; PCP Family Medicine
DX: T20.20XA Burn of second degree of head, face, and neck, unspecified site, initial encounter (principal); T27.3XXA Burn of respiratory tract, part unspecified, initial encounter; I48.20 Chronic atrial fibrillation, unspecified; W40.8XXA Explosion of other specified explosive materials, initial encounter; F17.210 Nicotine dependence, cigarettes, uncomplicated; E78.5 Hyperlipidemia, unspecified; J44.9 Chronic obstructive pulmonary disease, unspecified
CPT/HCPCS: 36415; 36600; 71045; 80051; 80053; 82330; 82805; 83880; 84484; 85025; 85610; 85730; 93005; 96365; 96375; 99285; 99291; 99292; J3490

== ENCOUNTER 2024-02-16 18:24 | Emergency (ER) | payer MEDICARE, MEDICAID, SELFPAY ==
[2024-02-16] VITALS (25 sets, daily range): BP systolic 56–125; BP diastolic 29–69; PULSE 38–61; RESP 14–25; TEMP 35.2; O2SAT 78–100; BMI 28.2
--- NOTE | 2024-02-16 18:30 | ECG_ITS ---
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 Measurements Intervals [place] Rate: 55 P: 201 MI: 255 QRS: 83 QRSD: 125 T: 35 QT: 474 QTc: 455 Interpretive Statements SINUS BRADYCARDIA WITH FIRST DEGREE AV BLOCK WITH FREQUENT SUPRAVENTRICULAR PREMATURE COMPLEXES RIGHT BUNDLE BRANCH BLOCK [120+ ms QRS DURATION, UPRIGHT V1, 40+ ms S IN I/aVL/V4/V5/V6] POSSIBLE ANTERIOR MYOCARDIAL INFARCTION , PROBABLY OLD [30 ms Q WAVE IN V3/V4, OR R < 0.2 mV IN V4] Compared to ECG 12/31/2023 18:19:00 First degree AV block now present Right bundle-branch block now present Myocardial infarct finding now present Atrial fibrillation no longer present Incomplete right bundle-branch block no longer present Electronically Signed On 02-17-2024 13:09:38 CDT by Mario Hanson M.D. [id number]
--- NOTE | 2024-02-16 18:32 | CTR_ITS ---
PROCEDURE INFORMATION: Exam: CT Head Without Contrast Exam date and time: 02/16/2024 8:35 PM Age: 63 years old Clinical indication: Altered mental status/memory loss; Additional info: AMS TECHNIQUE: Imaging protocol: Computed tomography of the head without contrast. Radiation optimization: All CT scans at this facility use at least one of these dose optimization techniques: automated exposure control; mA and/or kV adjustment per patient size (includes targeted exams where dose is matched to clinical indication); or iterative reconstruction. COMPARISON: No relevant prior studies available. RADIATION DOSE METRICS: Total DLP (mGy-cm): 1268.1 FINDINGS: Brain: No hemorrhage. Mild to moderate white matter disease. No mass effect. Preserved oglesby-white interfaces. Cerebral ventricles: No ventriculomegaly. Paranasal sinuses: Lobulated mucosal thickening noted in the left maxillary sinus. Mastoid air cells: Visualized mastoid air cells are well aerated. Bones: Unremarkable. No acute fracture. Soft tissues: Right frontal scalp lipoma. CT/CT head wo con* [id number] IMPRESSION: No evidence of acute intracranial hemorrhage, mass effect, or edema.
--- NOTE | 2024-02-16 18:32 | XRR_ITS ---
PROCEDURE INFORMATION: Exam: XR Chest Exam date and time: 02/16/2024 7:18 PM Age: 63 years old Clinical indication: Device placement; Other: Central line placement TECHNIQUE: Imaging protocol: Radiologic exam of the chest. Views: 1 view. COMPARISON: CR XR chest 1V portable [id number] 12/31/2023 4:26 PM FINDINGS: Tubes, catheters and devices: Endotracheal tube is in satisfactory position. Right internal jugular central venous catheter tip projects over the brachiocephalic confluence. Lungs: Reticular opacities are noted in the left lung, diminished from prior exam. Patchy retrocardiac opacity appears similar to prior. Pleural spaces: No pleural effusion. No pneumothorax. Heart/Mediastinum: There has been enlargement of the cardiac silhouette compared to the prior exam with similar technique. Bones/joints: Prior plating of left ribs 3, 4, and 5 noted. No acute bony abnormality. XR/XR chest 1V portable [id number] IMPRESSION: 1. Endotracheal tube and right internal jugular central venous catheter are in satisfactory positions. No evidence of pneumothorax. 2. Interval increase in cardiac size could reflect true cardiac enlargement or pericardial effusion. 3. Improved but not resolved reticular opacities in the left lung.
--- NOTE | 2024-02-16 18:44 | ED_ITS ---
HPI - Altered Mental Status 2 General: Chief Complaint: Altered Mental Status Stated Complaint: UNRESPONSIVE Time Seen by Provider: 02/16/24 18:30 Source: EMS Mode of arrival: EMS Limitations: altered mental status History of Present Illness: 63-year-old male with multiple medical i ssues EMS was called today because patient was found unresponsive on the toilet unsure how long he had been unresponsive last known normal was around noon EMS states that everyone at the scene was poor historians he is found to be hypoglycemic with blood sugar in 30s he is only responsive to painful stimuli here and will not speak any words. He send distress he is hypothermic as well blood sugar is now in the 60s. He is hypotensive no known injuries. Review of Systems 2 General: Reports: ROS unobtainable due to mental status PFSH ED 2 PFSH: Medical History Right heart failure with reduced right ventricular function Rib deformity Acute and chronic respiratory failure with hypoxia Atrial fibrillation with RVR Acute exacerbation of chronic obstructive airways disease Hyperlipidemia Atrial fibrillation COPD (chronic obstructive pulmonary disease) Surgical History History of colon surgery Family History Other CAD (coronary artery disease) Hypertension Lung disease Denies family history of Diabetes Clotting disorder Dementia Hyperlipidemia Psychiatric illness Chronic kidney disease (CKD) Anesthesia complication Bleeding disorder Cancer Stroke Social History Smoking and tobacco/nicotine status: current every day tobacco/nicotine user cigarettes Packs smoked per day: 0.5 Alcohol intake: former Substance/Drug Use: never Lives independently: Yes Current occupational status: disabled Current gender identity: Male Special jeri needs: No Agree to transfusion: Yes Procedures Central Line Placement Right IJ: Time Out Performed: Yes Patient Placed on Monitor/Pulse Ox: Yes MD Prep: mask, gown and gloves Central Line Prep: Chlorhexidine scrub Ultrasound Used for Placement: Yes Central Line Lumen Inserted: triple Post Procedure: sutured in place, good blood return, all ports aspirated, flushed, capped and sterile dressing applied Post Procedure X-Ray: tip of catheter in good position and no pneumothorax seen Patient Tolerated Procedure: well Complications: catheter malposition Additional Comments: Catheter was malpositioned on original line did replace it and placed in With no complications Intubation Time out performed: Yes sedative: Etomidate Mg Given: 20 paralytic: Vecuronium Mg Given: 10 Laryngoscope: Raymond ET Tube Size: 8 ET Tube Uncuffed: Yes Tube Secured Depth (cm): 26 Tube Secured Location: teeth Tube Placement Confirmation: visualized tube passing through cords, equal breath sounds bilaterally, no breath sounds over epigastrium and confirmation by capnometry Patient Tolerated Procedure: well Intubation Complications: none Course 2 Reevaluation(s): Reevaluation #1: Patient continued to decompensate with hypoxia and hypotension did have to intubate him and place a central line we will start him on pressors at this time as well. Time: 19:20 Vital Signs: Vital signs: Vital Signs Temperature 95.4 F L 02/16/24 18:25 Pulse Rate 51 L 02/16/24 18:25 Respiratory Rate 14 02/16/24 21:31 Blood Pressure 79/49 02/16/24 18:25 Pulse Oximetry 78 L 02/16/24 18:25 Oxygen Delivery Me thod Nasal Cannula 02/16/24 18:25 Oxygen Flow Rate 3 02/16/24 18:25 Fraction of Inspir ed Oxygen 90 02/16/24 21:31 MDM - Altered Mental Status Medical Decision Making 63-year-old male who presented here with altered mental status found down with unknown downtime he was severely hypoglycemic patient was hypothermic as well hypotensive and he was hypoxic patient was intubated here central line started he has been started on pressors. Did maxed out Levophed he is on vasopressin as well he started to have some bradycardia appears to be a slow A-fib no blocks did give him a dose of atropine will start on dopamine as well as heart rate currently is 50 blood pressure is improved at 125/67. He does have an elevated bilirubin and liver enzymes CT shows cholecystitis there is still some concerns for a ascending cholangitis I spoke to my hospitalist here recommended transfer for higher level of care for GI as well spoke to [facility] and will transfer there at this time for higher level of care. Medical Records I reviewed the patient's medical records. Lab Data I reviewed the patient's lab results. 02/16/24 19:40 02/16/24 19:[address] 02/16/24 18:32 IMPRESSION: No evidence of acute intracranial hemorrhage, mass effect, or edema. Chest X-Ray 02/16/24 19:59 IMPRESSION: 1. Enteral tube is in satisfactory position. 2. Moderate cardiomegaly. Chest/Abdomen/Pelvis CT 02/16/24 20:56 IMPRESSION: 1. There are changes of acute on chronic bronchitis bibasilar endobronchial debris causing multifocal bronchial occlusion and atelectasis. Developing pneumonia is not excluded. 2. Support devices are in satisfactory positions. 3. Moderate to severe four-chamber cardiomegaly without pulmonary venous distension. IMPRESSION: 1. Gallbladder wall thickening with pericholecystic edema is concerning for acute cholecystitis. No biliary tree dilation. Consider ultrasound for further evaluation if clinical scenario is unresolved. 2. Low volume intermediate density ascites. Complex fluid suspected. No visible abscess. Laboratory Results WBC 14.95 10^3/uL (3.29-11.43) H 02/16/24 19:40 RBC 4.71 10^6/uL (3.85-5.65) 02/16/24 19:40 Hgb 13.60 g/dL (11.27-16.99) 02/16/24 19:40 Hct 46.2 % (37-53) 02/16/24 19:40 MCV 98.1 fl (82-101) 02/16/24 19:40 MCH 28.9 pg (27-33) 02/16/24 19:40 MCHC 29.4 g/dL (30-55) L 02/16/24 19:40 RDW 15.7 % (12.1-15.1) H 02/16/24 19:40 Plt Count 259 10^3/cmm (157-399) 02/16/24 19:40 MPV 9.5 fL (7.4-10.4) 02/16/24 19:40 Neut % (Auto) 88.0 % 02/16/24 19:40 Lymph % (Auto) 4.9 % 02/16/24 19:40 [place] % (Auto) 5.1 % 02/16/24 19:40 Eos % (Auto) 0.1 % 02/16/24 19:40 Baso % (Auto) 0.2 % 02/16/24 19:40 Neut # (Auto) 13.16 10^3/uL (1.8-7.7) H 02/16/24 19:40 Lymph # (Auto) 0.7 10^3/uL (0.8-4.8) L 02/16/24 19:40 [place] # (Auto) 0.8 10^3/uL (0.2-0.9) 02/16/24 19:40 Eos # (Auto) 0.0 10^3/uL (0.0-0.8) 02/16/24 19:40 Baso # (Auto) 0.0 10^3/uL (0.0-0.1) 02/16/24 19:40 Nucleated RBC % (auto) 0.1 % 02/16/24 19:40 Nucleated RBCs # 0.0 /100WBC 02/16/24 19:40 PT 27.70 SECONDS (12.1-14.9) H 02/16/24 19:40 INR 2.47 (0.8-1.2) H 02/16/24 19:40 Specimen Type Arterial 02/16/24 18:44 Sample Site right radial 02/16/24 18:44 ABG pH 7.10 (7.35-7.45) L* 02/16/24 18:44 ABG pCO2 73.6 mmHg (35-45) H* 02/16/24 18:44 ABG pO2 57.0 mmHg (80.0-100.0) L 02/16/24 18:44 ABG HCO3 22.8 mmol/L (22-26) 02/16/24 18:44 ABG Base Excess -8.6 mmol/L (-2.0-2.0) L 02/16/24 18:44 Jacob Test Pos 02/16/24 18:44 Hematocrit 46.7 % (42-52) 02/16/24 18:44 O2 Delivery Device nc 02/16/24 18:44 O2 Liters/Min 5.0 % 02/16/24 18:44 Specimen Drawn By dejon 02/16/24 18:44 Violin Restorer ID gc 02/16/24 18:44 Sodium 139 mmol/L (136-145) 02/16/24 19:40 Potassium 5.6 mmol/L (3.5-5.1) H 02/16/24 19:40 Chloride 103 mmol/L (98-107) 02/16/24 19:40 Carbon Dioxide 22 mmol/L (22-29) 02/16/24 19:40 Anion Gap 19.6 (5-19) H 02/16/24 19:40 BUN 30 mg/dL (8-23) H 02/16/24 19:40 Creatinine 1.9 mg/dL (0.7-1.2) H 02/16/24 19:40 GFR Calculation 35.8 mL/min (90-130) L 02/16/24 19:40 Glucose 110 mg/dL (65-115) 02/16/24 19:40 POC Glucose 115 mg/dL (70-110) H 02/16/24 20:03 Calculated Osmolality 295 mOsm/kg (285-295) 02/16/24 19:40 Lactic Acid 6.1 mmol/L (0.5-2.2) H* 02/16/24 19:40 Lactic Acid (Sepsis) 4.5 mmol/L (0.5-2.2) H* 02/16/24 21:35 Calcium 8.2 mg/dL (8.5-10.5) L 02/16/24 19:40 Phosphorus 8.5 mg/dL (2.5-4.5) H* 02/16/24 19:40 Magnesium 2.1 mg/dL (1.7-2.3) 02/16/24 19:40 Total Bilirubin 1.7 mg/dL (0.15-1.2) H 02/16/24 19:40 AST 1567 U/L (0-40) H 02/16/24 19:40 ALT 1213 U/L (0-41) H 02/16/24 19:40 Alkaline Phosphatase 101 U/L (40-130) 02/16/24 19:40 Ammonia 85 umol/L (16-60) H 02/16/24 19:40 Creatine Kinase 183 U/L (39-308) 02/16/24 19:40 Troponin T Baseline 63 ng/L (0-15) H 02/16/24 19:40 Troponin T 120 Minute 70.97 ng/L (0-15) H 02/16/24 21:30 Delta Troponin T 7.97 ABS# (0-10) 02/16/24 21:30 NT-Pro-B Natriuret Pep 9373 pg/mL (0-125) H 02/16/24 19:40 Total Protein 5.9 g/dL (6.6-8.7) L 02/16/24 19:40 Albumin 3.0 g/dL (3.5-5.2) L 02/16/24 19:40 Globulin 2.9 g/dL (1.3-4.6) 02/16/24 19:40 Lipase 26 U/L (13-60) 02/16/24 19:40 TSH 10.47 uIU/mL (0.27-4.20) H 02/16/24 19:40 Ethyl Alcohol < 10 mg/dL (0-10) 02/16/24 19:40 All radiology interpretation(s) finalized by discharge EKG Data EKG 1: I personally reviewed and interpreted this EKG as follows: EKG interpretation date: 02/16/24 EKG interpretation time: 18:30 Interpretation: sinus jimi hr [address] or t wave abnormalities qrs 125 qtc 463 Critical Care Time 2 Critical Care Time: Critical Care Time: Yes Total Critical Care Time: 90 Attestation: The high probability of a clinically significant, sudden or life threatening deterioration of the patient's resp system(s) required my full and direct attention, intervention and personal management. The critical care time is as shown. This time is in addition to time spent performing any reported procedures but includes the following: [x] Data and vital sign review and interpretation [x] Patient assessment, examination and intervention [x] Documentation [x] Medication orders and management Discharge Plan Discharge Patient Disposition: Xfer Short-Term Hosp Clinical Impression: Septic shock, Hypoglycemia, Acute cholecystitis, Pneumonia, Elevated liver enzymes Condition: Stable Referrals: Sloan Arias MD [Primary Care Provider] - Patient Instructions: Altered Mental Status (ED) Coding Level of Care Code ED Beef Specialist for Emily Talbot
[2024-02-16] MEDS: sodium chloride 0.9% 1,000 ML 999 ML IV ×2 (18:49→21:25)
--- NOTE | 2024-02-16 18:49 | PC.NURSE ---
PATIENT FRIAS PLACED. NO URINE RETURN UPON INSERTION.
[2024-02-16 18:54] LABS: Arterial Blood Gas Hematocrit 46.7 % (42-52); Base Excess ABG -8.6 mmol/L (-2.0-2.0); Blood Gas Allen Test Pos; Blood Gas Sample Type Arterial; HCO3 ABG 22.8 mmol/L (22-26)
[2024-02-16] MEDS: dextrose 10% 250 ML 1000 ML IV (18:54)
[2024-02-16] MEDS: EPINEPHrine 0.1 mg/mL SYR 10 mL 0.100000000000000006 MG IVP (19:03)
[2024-02-16] MEDS: vecuronium 10 mg SDV IVP (19:06)
[2024-02-16] MEDS: etomidate 2 mg/mL INJ SDV 10 mL 20 MG IVP (19:06)
[2024-02-16 19:16] LABS: ABG PCO2 73.6 mmHg (35-45); Oxygen Device nc
[2024-02-16] MEDS: norepinephrine 4 MG/250 ML BAG 30 MG IV (19:46)
[2024-02-16] MEDS: propofol 1,000 MG/100 ML INJ 2.99000000000000021 MG IV (19:52)
[2024-02-16 19:55] LABS: Basophils % 0.2 %; Eosinophils % 0.1 %; Hematocrit 46.2 % (37-53); Lymphocytes # 0.7 10^3/uL (0.8-4.8); Lymphocytes % 4.9 %; Mean Corpuscular HGB Conc 29.4 g/dL (30-55); Mean Corpuscular Hemoglobin 28.9 pg (27-33); Mean Corpuscular Volume 98.1 fl (82-101); Mean Platelet Volume 9.5 fL (7.4-10.4); Monocytes # 0.8 10^3/uL (0.2-0.9); Monocytes % 5.1 %; Neutrophils # 13.16 10^3/uL (1.8-7.7); Nucleated Red Blood Cells % 0.1 %; Platelet Count 259 10^3/cmm (157-399); Red Blood Count 4.71 10^6/uL (3.85-5.65); Red Cell Distribution Width 15.7 % (12.1-15.1); White Blood Count 14.95 10^3/uL (3.29-11.43)
--- NOTE | 2024-02-16 19:59 | XRR_ITS ---
PROCEDURE INFORMATION: Exam: XR Chest Exam date and time: 02/16/2024 7:59 PM Age: 63 years old Clinical indication: Device placement; Ng tube TECHNIQUE: Imaging protocol: Radiologic exam of the chest. Views: 1 view. COMPARISON: CR XR chest 1V portable [id number] 02/16/2024 7:18 PM FINDINGS: Tubes, catheters and devices: Enteral tube has been inserted in satisfactory position. Endotracheal tube and right internal jugular central venous catheter remain in satisfactory positions. Lungs: Stable reticular opacities in the left lung. Clear right lung. Pleural spaces: No pleural effusion. No pneumothorax. Heart/Mediastinum: Moderate cardiomegaly is unchanged from recent prior, and accentuated from more remote prior exams. Bones/joints: Age appropriate. XR/XR chest 1V portable [id number] IMPRESSION: 1. Enteral tube is in satisfactory position. 2. Moderate cardiomegaly.
[2024-02-16 20:06] LABS: Glucose Point of Care 115 mg/dL (70-110)
[2024-02-16 20:15] LABS: Ammonia 85 umol/L (16-60)
[2024-02-16 20:21] LABS: Troponin(5th) Baseline 63 ng/L (0-15)
[2024-02-16 20:23] LABS: INR 2.47 (0.8-1.2)
[2024-02-16 20:24] LABS: Lactic Sepsis W/Reflex 6.1 mmol/L (0.5-2.2)
[2024-02-16 20:32] LABS: Alkaline Phosphatase 101 U/L (40-130); Blood Urea Nitrogen 30 mg/dL (8-23); Calcium 8.2 mg/dL (8.5-10.5); Carbon Dioxide 22 mmol/L (22-29); Chloride 103 mmol/L (98-107); Globulin 2.9 g/dL (1.3-4.6); Glomerular Filtration Rate 35.8 mL/min (90-130); Glucose 110 mg/dL (65-115); Magnesium 2.1 mg/dL (1.7-2.3); NT Pro B Type Natriuretic Pept 9373 pg/mL (0-125); Osmolality Calculated 295 mOsm/kg (285-295); Sodium 139 mmol/L (136-145); Thyroid Stimulating Hormone 10.47 uIU/mL (0.27-4.20); Total Bilirubin 1.7 mg/dL (0.15-1.2); Total Protein 5.9 g/dL (6.6-8.7)
[2024-02-16 20:37] LABS: Alcohol Level < 10 mg/dL (0-10); Anion Gap 19.6 (5-19); Creatinine Clr Calc Pharmacy 48.9232; Potassium 5.6 mmol/L (3.5-5.1)
[2024-02-16 20:39] LABS: Phosphorus 8.5 mg/dL (2.5-4.5)
[2024-02-16 20:43] LABS: Alanine Aminotransferase 1213 U/L (0-41)
[2024-02-16 20:44] LABS: Creatine Phosphokinase 183 U/L (39-308)
--- NOTE | 2024-02-16 20:46 | ECG_ITS ---
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 Measurements Intervals [place] Rate: 48 P: 0 IN: 0 QRS: 84 QRSD: 126 T: 65 QT: 504 QTc: 454 Interpretive Statements ATRIAL FIBRILLATION WITH SLOW VENTRICULAR RESPONSE RIGHT BUNDLE BRANCH BLOCK [120+ ms QRS DURATION, UPRIGHT V1, 40+ ms S IN I/aVL/V4/V5/V6] POSSIBLE ANTERIOR MYOCARDIAL INFARCTION , OF INDETERMINATE AGE [30 ms Q WAVE IN V3/V4, OR R < 0.2 mV IN V4] Compared to ECG 02/16/2024 18:30:13 Sinus bradycardia no longer present First degree AV block no longer present Myocardial infarct finding still present Electronically Signed On 02-17-2024 13:11:18 CDT by Mario Hanson M.D. [email or web address] [email or web address] [facility] [id number]
[2024-02-16 20:48] LABS: Aspartate Amino Transferase 1567 U/L (0-40)
--- NOTE | 2024-02-16 20:56 | CTR_ITS ---
PROCEDURE INFORMATION: Exam: CT Chest Without Contrast; Diagnostic Exam date and time: 02/16/2024 9:18 PM Age: 63 years old Clinical indication: Hepatic failure TECHNIQUE: Imaging protocol: Diagnostic computed tomography of the chest without contrast. Radiation optimization: All CT scans at this facility use at least one of these dose optimization techniques: automated exposure control; mA and/or kV adjustment per patient size (includes targeted exams where dose is matched to clinical indication); or iterative reconstruction. COMPARISON: CT angio chest PE protcl [id number] 04/05/2023 8:00 AM RADIATION DOSE METRICS: Total DLP (mGy-cm): 1162.4 FINDINGS: Tubes, catheters and devices: Endotracheal tube, enteral tube, and right internal jugular central venous catheter are in satisfactory positions. Lungs: There is diffuse bronchial wall thickening with bronchial luminal narrowing which is most severe at the posterior lung bases. Multifocal bronchial occlusion is noted. Moderate centrilobular and paraseptal emphysema. Pleural spaces: No pneumothorax. No pleural effusion. Heart: Moderate to severe four-chamber cardiomegaly. Coronary arteries: No significant coronary artery calcification. Lymph nodes: No enlarged lymph nodes. Vasculature: No significant pulmonary venous distension. Bones/joints: Old healed plated fractures of left ribs 3, 4, and 5. No acute bony abnormality. Soft tissues: Unremarkable. COMMENTS: The presence of pulmonary emphysema on CT is an independent risk factor for lung cancer. In the absence of a history or active diagnosis of lung cancer, it is recommended that this patient with emphysema be evaluated for enrollment in a low dose CT lung cancer screening program. PROCEDURE INFORMATION: Exam: CT Abdomen And Pelvis Without Contrast Exam date and time: 02/16/2024 9:18 PM Age: 63 years old Clinical indication: Hepatic failure TECHNIQUE: Imaging protocol: Computed tomography of the abdomen and pelvis without contrast. Radiation optimization: All CT scans at this facility use at least one of these dose optimization techniques: automated exposure control; mA and/or kV adjustment per patient size (includes targeted exams where dose is matched to clinical indication); or iterative reconstruction. COMPARISON: CT angio chest PE protcl [id number] 04/05/2023 8:00 AM RADIATION DOSE METRICS: Total DLP (mGy-cm): 1162.4 FINDINGS: Tubes, catheters and devices: Catheterized urinary bladder. Liver: Mild fatty infiltration of the liver. Tiny hypoattenuating foci in the liver are too small to fully characterize but likely cysts or bile duct hamartomas. Gallbladder and bile ducts: Gallbladder is thick-walled and there is pericholecystic edema. No high density gallstones are appreciated but there is some hyperdense material in the gallbladder lumen which may be sludge. No biliary tree dilation. Pancreas: Normal. No ductal dilation. Spleen: Normal. No splenomegaly. Adrenal glands: Thickened adrenals without discrete mass. Kidneys and ureters: No significant renal contour deformity. No evidence of renal obstruction. Stomach and bowel: Small amount of fluid noted in the stomach. Normal caliber small bowel. Prior ileocolic resection with patent suture line. Normal appearance of the colon. Appendix: Appendix is surgically absent. Intraperitoneal space: Low volume slightly hyperdense ascites. Vasculature: Normal caliber arterial structures. Lymph nodes: No enlarged lymph nodes. Urinary bladder: Unremarkable as visualized. Reproductive: Physiologic appearance for age. Bones/joints: Mild lower lumbar facet arthropathy. Mild sacroiliac osteoarthritis. Soft tissues: Unremarkable. CT/[place] [id number] IMPRESSION: 1. There are changes of acute on chronic bronchitis bibasilar endobronchial debris causing multifocal bronchial occlusion and atelectasis. Developing pneumonia is not excluded. 2. Support devices are in satisfactory positions. 3. Moderate to severe four-chamber cardiomegaly without pulmonary venous distension. IMPRESSION: 1. Gallbladder wall thickening with pericholecystic edema is concerning for acute cholecystitis. No biliary tree dilation. Consider ultrasound for further evaluation if clinical scenario is unresolved. 2. Low volume intermediate density ascites. Complex fluid suspected. No visible abscess.
[2024-02-16 21:08] LABS: Lipase 26 U/L (13-60)
[2024-02-16] MEDS: piperacillin-tazobactam 3.375 GM in sodium chloride 0.9% (plus) 50 ML IV (21:30)
[2024-02-16 21:38] LABS: Blood Gas Drawn By congi
[2024-02-16 21:42] LABS: Reflex Lactate Order REFLEX LACTIC ORDERD
[2024-02-16] MEDS: atropine 0.1 mg/mL Syr 10 mL 0.5 MG IVP (21:45)
--- NOTE | 2024-02-16 21:46 | ECG_ITS ---
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 Measurements Intervals [place] Rate: 56 P: 0 WI: 0 QRS: 86 QRSD: 141 T: 74 QT: 496 QTc: 479 Interpretive Statements ATRIAL FIBRILLATION WITH SLOW VENTRICULAR RESPONSE INTRAVENTRICULAR CONDUCTION DELAY [130+ ms QRS DURATION] Compared to ECG 02/16/2024 20:46:09 Intraventricular conduction delay now present Right bundle-branch block no longer present Myocardial infarct finding no longer present Electronically Signed On 02-17-2024 13:08:41 CDT by Mario Hanson M.D. [id number]
[2024-02-16] MEDS: vasopressin 40 UNIT/100 ML PREMIX IV (21:49)
[2024-02-16 22:01] LABS: Troponin 5 2HR 70.97 ng/L (0-15); Troponin 5 2HR Delta 7.97 ABS# (0-10)
[2024-02-16] MEDS: vancomycin 1,000 MG in sodium chloride 0.9% 250 ML 250 MG IV (22:02)
[2024-02-16 22:04] LABS: Blood Gas Operator Identificat gc
[2024-02-16 22:14] LABS: Lactic Acid level (Lactate) 4.5 mmol/L (0.5-2.2)
[2024-02-16 22:33] LABS: Hepatitis A Antibody IgM Non-Reactive (Nonreactive); Hepatitis B Core AB, Total Non-Reactive (Nonreactive); Hepatitis B Surface AB 4.3 (11.5-1000); Hepatitis B Surface Antigen Non-Reactive (Nonreactive); Hepatitis C Virus Antibody Non-Reactive (Nonreactive)
[2024-02-16] MEDS: DOPamine drip 400 MG/250 ML PREMIX 18.7100000000000009 MG IV (22:42)
--- NOTE | 2024-02-16 22:58 | PC.NURSE ---
VERBAL ORDER RECEIVED FROM DR WALSH TO MAX OUT DOSAGE OF VASOPRESSOR DUE TO NOT BEING ABLE TO GET A BLOOD PRESSURE
[2024-02-16 23:14] LABS: Arterial Blood Gas Hematocrit 46.7 % (42-52); Base Excess ABG -10.8 mmol/L (-2.0-2.0); Blood Gas Allen Test Pos; Blood Gas Sample Site Brachial, right; Blood Gas Sample Type Arterial; HCO3 ABG 21.2 mmol/L (22-26); Oxygen Device VENT; PO2 FiO2 Ratio Arterial Blood 0
[2024-02-16 23:16] LABS: ABG PCO2 74.9 mmHg (35-45); ABG PH Result 7.06 (7.35-7.45)
[2024-02-16] MEDS: norepinephrine 4 MG/250 ML BAG 75 MG IV (23:24)
[2024-02-16] MEDS: dexmedeTOMIDine 0.9 % NaCL 400 MCG/100 ML PREMIX 12.4700000000000006 MCG IV (23:57)
[2024-02-17 00:10] VITALS: PULSE 67; RESP 18; O2SAT 89
[2024-02-17] MEDS: sodium bicarbonate 8.4% 1 mEq/mL 50mL Syr 50 MEQ IVP (00:13)
== END 2024-02-17 00:32 | disposition short-term general hospital (02) ==
PROVIDERS: Emergency Provider Emergency Medicine; PCP Family Medicine
DX: A41.9 Sepsis, unspecified organism (principal); R65.21 Severe sepsis with septic shock; K81.0 Acute cholecystitis; J18.9 Pneumonia, unspecified organism; R74.8 Abnormal levels of other serum enzymes; E16.2 Hypoglycemia, unspecified; J44.0 Chronic obstructive pulmonary disease with (acute) lower respiratory infection; E78.5 Hyperlipidemia, unspecified; I50.810 Right heart failure, unspecified
CPT/HCPCS: 31500; 36416; 36556; 36600; 51702; 70450; 71045; 71250; 74176; 80053; 80307; 82140; 82550; 82803; 82962; 83605; 83690; 83735; 83880; 84100; 84443; 84484; 85025; 85610; 86705; 86706; 86709; 86803; 87040; 87340; 93005; 94002; 96365; 96366; 96367; 96375; 99291; 99292; J0171; J0461; J1265; J2543; J2598; J2704; J3490; J7030; J7799

== ENCOUNTER → 2024-05-22 13:38 | Outpatient (BNVA) | payer MEDICARE, MEDICAID, SELFPAY | PROVIDERS: PCP Family Medicine; Visit Provider Internal Medicine | DX: I48.11 Longstanding persistent atrial fibrillation (principal); E78.5 Hyperlipidemia, unspecified; J44.9 Chronic obstructive pulmonary disease, unspecified; F17.210 Nicotine dependence, cigarettes, uncomplicated; Z79.01 Long term (current) use of anticoagulants | CPT/HCPCS: 99214 ==

== ENCOUNTER 2024-06-03 18:45 | Inpatient (IN) | payer MEDICARE, MEDICAID, SELFPAY ==
[2024-06-03] VITALS (13 sets, daily range): BP systolic 114–166; BP diastolic 79–142; PULSE 87–138; RESP 17–28; TEMP 36.6; O2SAT 89–98; BMI 28.5
--- NOTE | 2024-06-03 18:55 | ECG_ITS ---
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1960 Requested By: Stephen Ball Order Number: [id number] Natalya MD: SURY HEBERT Measurements Intervals [place] Rate: 139 P: 0 [place]: 0 QRS: 121 QRSD: 108 T: -3 QT: 267 QTc: 406 Interpretive Statements ATRIAL FIBRILLATION WITH RAPID VENTRICULAR RESPONSE INCOMPLETE RIGHT BUNDLE BRANCH BLOCK [90+ ms QRS DURATION, TERMINAL R IN V1/V2, 40+ ms S IN I/aVL/V4/V5/V6] POSSIBLE RIGHT VENTRICULAR HYPERTROPHY [SOME/ALL OF: PROMINENT R IN V1, LATE TRANSITION, RAD, LILIANE, SSS] ANTEROSEPTAL MYOCARDIAL INFARCTION , OF INDETERMINATE AGE [40+ ms Q WAVE IN V1-V4] Compared to ECG 02/16/2024 21:46:24 Incomplete right bundle-branch block now present Myocardial infarct finding now present Intraventricular conduction delay no longer present Electronically Signed On 06-03-2024 19:00:49 CDT by SURY HEBERT [id number]
--- NOTE | 2024-06-03 18:55 | XRR_ITS ---
PROCEDURE INFORMATION: Exam: XR Chest Exam date and time: 06/03/2024 7:21 PM Age: 63 years old Clinical indication: Shortness of breath; Additional info: SOB; Afib/rvr; Tachycardia; AMS; Hepatic failure; Copd; Asthma TECHNIQUE: Imaging protocol: Radiologic exam of the chest. Views: 1 view. COMPARISON: [place] [id number] 02/16/2024 9:18 PM FINDINGS: Lungs: Mild emphysematous changes. Hazy right basilar opacities. Faint left basilar opacities favor atelectasis. Chronic mild reticular opacities throughout the lungs. Pleural spaces: Unremarkable. No pleural effusion. No pneumothorax. Heart/Mediastinum: Similar cardiomegaly. Bones/joints: Plating of several left-sided ribs again seen. XR/XR chest 1V portable [id number] IMPRESSION: Right basilar opacities may reflect atelectasis, though superimposed infection is not excluded.
[2024-06-03] MEDS: dilTIAZem 5 mg/mL SDV 5 mL 15 MG IVP (19:11)
[2024-06-03] MEDS: FUROsemide 10 mg/mL SDV 10mL 80 MG IVP (19:11)
--- NOTE | 2024-06-03 19:12 | W.ED.SOB ---
HPI - SOB/Dyspnea General: Chief Complaint: Eye Problems Stated Complaint: EYE SWELLING Time Seen by Provider: 06/03/24 18:47 History of Present Illness: HPI Narrative: 63-year-old male patient who is a poor historian. He has a history of diastolic heart failure, atrial fibrillation. He reports that he has not been taking his medication appropriately. His eyes are swollen. His hands are swollen. His legs are more swollen, and hurt. He has been having some intermittent chest discomfort. He is more short of breath than normal. His baseline oxygen uses 6 L, as he also has end-stage COPD. On my interview, his heart rate is 140s. Related Data Home Medications Medication Instructions Recorded Confirmed metoprolol tartrate 50 mg tablet 50 mg PO DAILY 05/22/24 05/22/24 Previous Rx's Medication Instructions Recorded home fill oxygen concentrator #1 ea 04/19/23 motorized electric scooter #1 ea 04/26/23 pulse oxymeter #1 ea 04/26/23 Electric wheelchair #1 ea 05/04/23 budesonide 0.5 mg/2 mL suspension 0.5 mg (2 mL) inhalation BID COPD 11/21/23 for nebulization #60 mL ipratropium 0.5 mg-albuterol 3 mg 3 ml inhalation Q6H PRN shortness 11/21/23 (2.5 mg base)/3 mL nebulization of breath or wheezing 30 days #180 soln mL guaifenesin 1,200 mg tablet, 1,200 mg PO BID #60 tabs 03/14/24 extended release 12 hr (Mucinex) albuterol sulfate 2.5 mg/3 mL 2.5 mg (3 mL) inhalation Q6H PRN 04/27/24 (0.083 %) solution for nebulization shortness of breath or wheezing #180 mL apixaban 5 mg tablet (Eliquis) 5 mg PO BID #180 tabs 04/27/24 loperamide 2 mg capsule 2 mg PO Q6H PRN loose stool #30 04/27/24 caps mirabegron 25 mg tablet,extended 25 mg PO DAILY #90 tabs 04/27/24 release 24 hr ondansetron 4 mg disintegrating 4 mg PO Q8H PRN nausea and 04/27/24 tablet vomiting #60 tabs potassium chloride 10 mEq 20 meq (2 x 10 mEq) PO DAILY #180 04/27/24 tablet,extended release tabs umeclidinium 62.5 mcg-vilanterol 1 inh inhalation DAILY #60 ea 04/27/24 25 mcg/actuation powdr for inhalation Allergies Allergy/AdvReac Type Severity Reaction Status Date / Time amiodarone AdvReac Intermediate ADR-Gastrointestinal Verified 06/03/24 18:54 Upset PFSH ED PFSH: Medical History Tobacco use disorder Heart failure with mildly reduced ejection fraction (HFmrEF) Right heart failure with reduced right ventricular function Rib deformity Acute and chronic respiratory failure with hypoxia Atrial fibrillation with RVR Acute exacerbation of chronic obstructive airways disease Hyperlipidemia Atrial fibrillation COPD (chronic obstructive pulmonary disease) Surgical History History of colon surgery Family History Other CAD (coronary artery disease) Hypertension Lung disease Denies family history of Diabetes Clotting disorder Dementia Hyperlipidemia Psychiatric illness Chronic kidney disease (CKD) Anesthesia complication Bleeding disorder Cancer Stroke Social History Smoking and tobacco/nicotine status: current every day tobacco/nicotine user cigarettes Packs smoked per day: 0.5 Alcohol intake: former Substance/Drug Use: never Lives independently: Yes Current occupational status: disabled Current gender identity: Male Special jeri needs: No Agree to transfusion: Yes Physical Exam Const: GENERAL APPEARANCE: disheveled, ill appearing and frail appearing; not cooperative ORIENTATION/CONSCIOUSNESS: Yes awake and Yes oriented to person HENMT: FACE & SINUS: edema (Significant bilateral periorbital edema) Eye: COMMON NORMALS: Equal, round and reactive pupils present and EOMs intact bilaterally PUPIL: Yes Equal, round and reactive pupils present Chest: CHEST: Yes Symmetrical chest wall rise Resp: EFFORT & INSPECTION: Yes tachypneic and Yes uses accessory muscles AUSCULTATION: diminished lung sounds Cardio: RATE: tachycardic RHYTHM: abnormal rhythm irregularly irregular GI: COMMON NORMALS: Soft to palpation PALPATION: Yes Soft to palpation Extremity: NARRATIVE EXTREMITY EXAM: Bilateral pedal edema, chronic cellulitis. Fissuring. Neuro: [place] COMA SCALE: document GCS findings [place] coma scale eye opening: Spontaneous [place] coma scale verbal response: Orientated [place] coma scale motor response: Obey commands [place] coma scale total score: 15 SENSORIUM/ORIENTATION: Yes oriented to person Course Vital Signs: Vital signs: Vital Signs Temperature 97.9 F 06/03/24 18:47 Pulse Rate 100 06/03/24 20:30 Respiratory Rate 24 H 06/03/24 20:30 Blood Pressure 122/85 06/03/24 20:30 Pulse Oximetry 89 L 06/03/24 20:30 Oxygen Delivery Me thod Nasal Cannula 06/03/24 20:00 Oxygen Flow Rate 5 06/03/24 20:00 MDM - SOB/Dyspnea Medical Decision Making 63-year-old male with multiple medical problems. He presents with a heart rate in the 140s, shortness of breath, and significant swelling to all 4 extremities and his face. He became confrontational, about drawing blood after 1 IV attempt. He was told that he can leave AGAINST MEDICAL ADVICE if he like, but that he was quite sick, and may not make it very long. He seems to be cooperating now. IV diltiazem, IV Lasix, laboratories pending. CBC is normal. Potassium is 6.1. Creatinine is 1. Bicarbonate is 38. Urinalysis is negative. Alcohol is negative. BNP is 6500, baseline troponin is 41. EKG shows atrial fibrillation with rapid ventricular response. He is given a push of diltiazem, followed by drip. His rate is now around 100. Blood pressure 122/85. Saturations are 90-92 on 6 L. Respirations are down to 25. He is given albuterol, insulin and glucose, and calcium gluconate for the hyperkalemia. He has had this in the past. Spoke with hospitalist. He will be admitted. Lab Data 06/03/24 19:38 06/03/24 19:38 Labs/Radiology: Radiology Impressions Chest X-Ray 06/03/24 18:55 IMPRESSION: Right basilar opacities may reflect atelectasis, though superimposed infection is not excluded. Laboratory Results WBC 8.22 10^3/uL (3.29-11.43) 06/03/24 19:38 RBC 5.00 10^6/uL (3.85-5.65) 06/03/24 19:38 Hgb 14.00 g/dL (11.27-16.99) 06/03/24 19:38 Hct 47.9 % (37-53) 06/03/24 19:38 MCV 95.8 fl (82-101) 06/03/24 19:38 MCH 28.0 pg (27-33) 06/03/24 19:38 MCHC 29.2 g/dL (30-55) L 06/03/24 19:38 RDW 15.7 % (12.1-15.1) H 06/03/24 19:38 Plt Count 249 10^3/cmm (157-399) 06/03/24 19:38 MPV 9.3 fL (7.4-10.4) 06/03/24 19:38 Neut % (Auto) 71.1 % 06/03/24 19:38 Lymph % (Auto) 19.7 % 06/03/24 19:38 [place] % (Auto) 8.2 % 06/03/24 19:38 Eos % (Auto) 0.6 % 06/03/24 19:38 Baso % (Auto) 0.2 % 06/03/24 19:38 Neut # (Auto) 5.84 10^3/uL (1.8-7.7) 06/03/24 19:38 Lymph # (Auto) 1.6 10^3/uL (0.8-4.8) 06/03/24 19:38 [place] # (Auto) 0.7 10^3/uL (0.2-0.9) 06/03/24 19:38 Eos # (Auto) 0.1 10^3/uL (0.0-0.8) 06/03/24 19:38 Baso # (Auto) 0.0 10^3/uL (0.0-0.1) 06/03/24 19:38 Nucleated RBC % (auto) 0.2 % 06/03/24 19:38 Nucleated RBCs # 0.0 /100WBC 06/03/24 19:38 PT 15.40 SECONDS (12.1-14.9) H 06/03/24 19:38 INR 1.18 (0.8-1.2) 06/03/24 19:38 APTT 32.5 SECONDS (23.9-36.7) 06/03/24 19:38 Sodium 144 mmol/L (136-145) 06/03/24 19:38 Potassium 6.1 mmol/L (3.5-5.1) H 06/03/24 19:38 Chloride 104 mmol/L (98-107) 06/03/24 19:38 Carbon Dioxide 38 mmol/L (22-29) H 06/03/24 19:38 Anion Gap 8.1 (5-19) 06/03/24 19:38 BUN 15 mg/dL (8-23) 06/03/24 19:38 Creatinine 1.0 mg/dL (0.7-1.2) 06/03/24 19:38 GFR Calculation 75.0 mL/min (90-130) L 06/03/24 19:38 Glucose 99 mg/dL (65-115) 06/03/24 19:38 Calculated Osmolality 299 mOsm/kg (285-295) H 06/03/24 19:38 Lactic Acid 1.1 mmol/L (0.5-2.2) 06/03/24 19:38 Calcium 9.4 mg/dL (8.5-10.5) 06/03/24 19:38 Total Bilirubin 0.5 mg/dL (0.15-1.2) 06/03/24 19:38 AST 38 U/L (0-40) 06/03/24 19:38 ALT 31 U/L (0-41) 06/03/24 19:38 Alkaline Phosphatase 110 U/L (40-130) 06/03/24 19:38 Troponin T Baseline 41 ng/L (0-15) H 06/03/24 19:38 NT-Pro-B Natriuret Pep 6513 pg/mL (0-125) H 06/03/24 19:38 Total Protein 6.7 g/dL (6.6-8.7) 06/03/24 19:38 Albumin 3.5 g/dL (3.5-5.2) 06/03/24 19:38 Globulin 3.2 g/dL (1.3-4.6) 06/03/24 19:38 Urine Color Yellow (Yellow) 06/03/24 19:48 Urine Appearance Clear (CLEAR) 06/03/24 19:48 Urine pH 5.0 (5-7) 06/03/24 19:48 Ur Specific [place] 1.012 (1.005-1.030) 06/03/24 19:48 Urine Protein 1+ (Negative) A 06/03/24 19:48 Urine Glucose (UA) Negative (Normal) 06/03/24 19:48 Urine Ketones Negative (Negative) 06/03/24 19:48 Urine Blood Negative (Negative) 06/03/24 19:48 Urine Nitrate Negative (Negative) 06/03/24 19:48 Urine Bilirubin Negative (Negative) 06/03/24 19:48 Urine Urobilinogen 1.0 mg/dL (Negative) 06/03/24 19:48 Ur Leukocyte Esterase Negative (Negative) 06/03/24 19:48 Urine RBC 0-2 /hpf (0-2) 06/03/24 19:48 Urine WBC 0-5 /hpf (0-5) 06/03/24 19:48 Ur Squamous Epith Cells 0-5 /hpf (0-5) 06/03/24 19:48 Amorphous Sediment Not Reportable 06/03/24 19:48 Urine Bacteria None seen /hpf (NONE) 06/03/24 19:48 Hyaline Casts 6.61 /lpf 06/03/24 19:48 Ethyl Alcohol < 10 mg/dL (0-10) 06/03/24 19:38 All radiology interpretation(s) finalized by discharge Critical Care Time Critical Care Time: Critical Care Time: Yes Total Critical Care Time: 40 Attestation: This case had a high probability of a clinically significant, sudden, or life threatening deterioration of this patient's condition which required my full and direct attention, intervention and personal management. Time is independent of any procedures performed. Discharge Plan Discharge Patient Disposition: Admitted As Inpatient Clinical Impression: COPD (chronic obstructive pulmonary disease), Congestive heart failure, Atrial fibrillation with RVR, Acute hyperkalemia Condition: Serious Coding Level of Care Code ED [place] [facility] for Emily Talbot
[2024-06-03] MEDS: dilTIAZem 100 MG in sodium chloride 0.9% (add-van) 100 ML IV (19:20)
[2024-06-03 19:44] LABS: Basophils % 0.2 %; Eosinophils # 0.1 10^3/uL (0.0-0.8); Eosinophils % 0.6 %; Hematocrit 47.9 % (37-53); Lymphocytes # 1.6 10^3/uL (0.8-4.8); Lymphocytes % 19.7 %; Mean Corpuscular HGB Conc 29.2 g/dL (30-55); Mean Corpuscular Volume 95.8 fl (82-101); Mean Platelet Volume 9.3 fL (7.4-10.4); Monocytes # 0.7 10^3/uL (0.2-0.9); Monocytes % 8.2 %; Neutrophils # 5.84 10^3/uL (1.8-7.7); Neutrophils % 71.1 %; Nucleated Red Blood Cells % 0.2 %; Platelet Count 249 10^3/cmm (157-399); Red Cell Distribution Width 15.7 % (12.1-15.1); White Blood Count 8.22 10^3/uL (3.29-11.43)
[2024-06-03 19:56] LABS: Charge for UA Resulting for Rev
[2024-06-03 20:00] LABS: Bilirubin Urine Negative (Negative); Blood Urine Negative (Negative); Glucose Urine UA Negative (Normal); Ketones Urine Negative (Negative); Leukocyte Esterase Urine Negative (Negative); Nitrate Urine Negative (Negative); Protein Urine 1+ (Negative); Specific Gravity, Urine 1.012 (1.005-1.030); Urine Appearance Clear (CLEAR); Urine Color Yellow (Yellow)
[2024-06-03 20:04] LABS: Bacteria Urine None Seen /hpf; Hyaline Casts Urine 6.61 /lpf; RBC Urine 0-2 /hpf (0-2); Squamous Epithelial Cell Urine 0-5 /hpf (0-5); WBC Urine 0-5 /hpf (0-5)
[2024-06-03 20:16] LABS: Lactic Sepsis W/Reflex 1.1 mmol/L (0.5-2.2)
[2024-06-03 20:18] LABS: Troponin(5th) Baseline 41 ng/L (0-15)
[2024-06-03 20:26] LABS: Alanine Aminotransferase 31 U/L (0-41); Albumin Level 3.5 g/dL (3.5-5.2); Alkaline Phosphatase 110 U/L (40-130); Anion Gap 8.1 (5-19); Aspartate Amino Transferase 38 U/L (0-40); Blood Urea Nitrogen 15 mg/dL (8-23); Calcium 9.4 mg/dL (8.5-10.5); Carbon Dioxide 38 mmol/L (22-29); Chloride 104 mmol/L (98-107); Creatinine Clr Calc Pharmacy 88.1892; Globulin 3.2 g/dL (1.3-4.6); Glucose 99 mg/dL (65-115); NT Pro B Type Natriuretic Pept 6513 pg/mL (0-125); Osmolality Calculated 299 mOsm/kg (285-295); Potassium 6.1 mmol/L (3.5-5.1); Sodium 144 mmol/L (136-145); Total Bilirubin 0.5 mg/dL (0.15-1.2); Total Protein 6.7 g/dL (6.6-8.7)
[2024-06-03 20:34] LABS: Alcohol Level < 10 mg/dL (0-10)
[2024-06-03 20:35] LABS: INR 1.18 (0.8-1.2)
[2024-06-03 20:36] LABS: Partial Thromboplastin Time 32.5 SECONDS (23.9-36.7)
[2024-06-03] MEDS: calcium gluconate 0.1 gm/mL 10% SDV 10mL 1 GM IVP (20:58)
[2024-06-03] MEDS: dextrose 10% 250 ML 1000 ML IV (21:00)
[2024-06-03] MEDS: insulin regular-human 100 units/1 mL 8 UNIT IVP (21:01)
--- NOTE | 2024-06-03 21:09 | ECG_ITS ---
[facility] Test Date: 2024-06-03 Pat Name: Gareth Pickering Department: Room: Gender: Male Emergency Medicine Medical Director: : 1960 Requested By: Stephen Ball Order Number: [id number] Natalya MD: Mario Hanson M.D. Measurements Intervals [place] Rate: 94 P: 0 AK: 0 QRS: 91 QRSD: 114 T: 40 QT: 338 QTc: 424 Interpretive Statements ATRIAL FIBRILLATION LOW QRS VOLTAGE IN EXTREMITY LEADS [QRS DEFLECTION < 0.5 mV IN LIMB LEADS] RIGHT BUNDLE BRANCH BLOCK [120+ ms QRS DURATION, UPRIGHT V1, 40+ ms S IN I/aVL/V4/V5/V6] ANTEROSEPTAL MYOCARDIAL INFARCTION , OF INDETERMINATE AGE [40+ ms Q WAVE IN V1-V4] Compared to ECG 06/03/2024 18:55:55 Low QRS voltage now present Right bundle-branch block now present Incomplete right bundle-branch block no longer present Atrial abnormality no longer present Myocardial infarct finding still present Electronically Signed On 06-04-2024 11:18:23 CDT by Mario Hanson M.D. [id number]
[2024-06-03 21:37] LABS: Glucose Point of Care 138 mg/dL (70-110)
--- NOTE | 2024-06-03 21:37 | P.HP_ITS ---
Providers/Chief Complaint 2 Primary Care Provider: Sloan Arias MD Chief Complaint: EYE SWELLING History of Present Illness Gareth Pickering is a 63 year old male with a past medical history of COPD, current smoker, hypertension, atrial fibrillation on Eliquis, CHF, currently on 6 L, who presents to [facility] due to chest palpitations, diffuse edema, and shortness of breath. Currently patient is alert oriented x 3, following all commands, on 6 L, in A-fib with RVR on a Cardizem drip, heart rates are controlled in the low 100s, he reports that he has been increasingly short of breath, with bilateral extreme edema abdominal swelling, swelling of his arms, swelling of his face, denies any lip swelling, no tongue swelling, no history of allergic reaction, no bee/insect sting, he tells me he does not use Lasix at home, his potassium 6.1, denies any chest pain, no lightheaded, dizziness, no nausea, no vomiting he has a chronic cough Review of Systems 2 Const: Denies: fever(s) Card: Denies: chest pain Resp: Reports: dyspnea Medications/Allergies Home Medications Medication Instructions Recorded Confirmed Last Taken Type home fill oxygen concentrator #1 ea 04/19/23 04/27/24 Unknown Rx motorized electric scooter #1 ea 04/26/23 04/27/24 Unknown Rx pulse oxymeter #1 ea 04/26/23 04/27/24 Unknown Rx Electric wheelchair #1 ea 05/04/23 04/27/24 Unknown Rx budesonide 0.5 mg/2 mL suspension 0.5 mg (2 mL) inhalation BID COPD 11/21/23 05/22/24 12/29/23 Rx for nebulization #60 mL ipratropium 0.5 mg-albuterol 3 mg 3 ml inhalation Q6H PRN shortness 11/21/23 05/22/24 Unknown Rx (2.5 mg base)/3 mL nebulization of breath or wheezing 30 days #180 soln mL guaifenesin 1,200 mg tablet, 1,200 mg PO BID #60 tabs 03/14/24 05/22/24 Unknown Rx extended release 12 hr (Mucinex) albuterol sulfate 2.5 mg/3 mL 2.5 mg (3 mL) inhalation Q6H PRN 04/27/24 05/22/24 Unknown Rx (0.083 %) solution for nebulization shortness of breath or wheezing #180 mL apixaban 5 mg tablet (Eliquis) 5 mg PO BID #180 tabs 04/27/24 05/22/24 Unknown Rx loperamide 2 mg capsule 2 mg PO Q6H PRN loose stool #30 04/27/24 05/22/24 Unknown Rx caps mirabegron 25 mg tablet,extended 25 mg PO DAILY #90 tabs 04/27/24 05/22/24 Unknown Rx release 24 hr ondansetron 4 mg disintegrating 4 mg PO Q8H PRN nausea and 04/27/24 05/22/24 Unknown Rx tablet vomiting #60 tabs potassium chloride 10 mEq 20 meq (2 x 10 mEq) PO DAILY #180 04/27/24 05/22/24 Unknown Rx tablet,extended release tabs umeclidinium 62.5 mcg-vilanterol 1 inh inhalation DAILY #60 ea 04/27/24 05/22/24 Unknown Rx 25 mcg/actuation powdr for inhalation metoprolol tartrate 50 mg tablet 50 mg PO DAILY 05/22/24 05/22/24 Unknown History Allergies Allergy/AdvReac Type Severity Reaction Status Date / Time amiodarone AdvReac Intermediate ADR-Gastrointestinal Verified 06/03/24 18:54 Upset PFSH Acute 2 PFSH: Medical History Tobacco use disorder Heart failure with mildly reduced ejection fraction (HFmrEF) Right heart failure with reduced right ventricular function Rib deformity Acute and chronic respiratory failure with hypoxia Atrial fibrillation with RVR Acute exacerbation of chronic obstructive airways disease Hyperlipidemia Atrial fibrillation COPD (chronic obstructive pulmonary disease) Surgical History History of colon surgery Family History Other CAD (coronary artery disease) Hypertension Lung disease Denies family history of Diabetes Clotting disorder Dementia Hyperlipidemia Psychiatric illness Chronic kidney disease (CKD) Anesthesia complication Bleeding disorder Cancer Stroke Social History Smoking and tobacco/nicotine status: current every day tobacco/nicotine user cigarettes Packs smoked per day: 0.5 Alcohol intake: former Substance/Drug Use: never Lives independently: Yes Current occupational status: disabled Current gender identity: Male Special jeri needs: No Agree to transfusion: Yes Vitals/I&O/Wt Last Vital Signs Temp 97.9 F 06/03/24 18:47 Pulse 116 H 06/03/24 21:00 Resp 19 H 06/03/24 21:00 BP 114/91 06/03/24 21:00 Pulse Ox 95 06/03/24 21:00 O2 Del Method Nasal Cannula 06/03/24 21:00 O2 Flow Rate 5 06/03/24 21:00 06/03/24 06/03/24 06/03/24 06:59 14:59 22:59 Intake Total 6.875 / 6.875 Balance 6.875 / 6.875 Weight last 48 hrs Weight 95.254 kg Physical Exam 2 Const: COMMON NORMALS: no acute distress and patient oriented x3 HENMT: COMMON NORMALS: normocephalic HEAD & SCALP: normocephalic Eye: COMMON NORMALS: Equal, round and reactive pupils present Neck/C-Spine: COMMON NORMALS: no JVD Resp: COMMON NORMALS: normal respiratory effort, No retractions and No use of accessory muscles AUSCULTATION: crackles Cardio: COMMON NORMALS: S1 normal heart sound present and S2 normal heart sound present RATE: tachycardic RHYTHM: abnormal rhythm HEART SOUNDS: S 1 normal heart sound present and S2 normal heart sound present GI: COMMON NORMALS: Normal to inspection, nondistended, normoactive bowel sounds present, Soft to palpation and non-tender Extremity: NARRATIVE EXTREMITY EXAM: Diffuse anasarca, abdominal swelling, bilateral lower extremity swelling 2+ pitting edema arm swelling, has swelling of his face, swelling of eyelids, No lip swelling, no tongue swelling, no new rashes Neuro: COMMON NORMALS: patient oriented x3, CN's II-XII intact bilaterally and moves all extremities Psych: COMMON NORMALS: mental status grossly normal Data 06/03/24 19:38 06/03/24 19:38 Micro: Microbiology 06/03/24 19:52 Blood Culture - Preliminary Blood SPECIMEN COLLECTED 06/03/24 19:38 Blood Culture - Preliminary Blood SPECIMEN COLLECTED A&P Assessment and plan (1) Atrial fibrillation with RVR: (2) Acute exacerbation of CHF (congestive heart failure): (3) End stage COPD: (4) Oxygen dependent: (5) Acute respiratory failure with hypoxia: (6) Hyperkalemia: Plan Acute hypoxic respiratory failure ? Likely secondary to systolic CHF exacerbation, fluid overload ? Does have end-stage COPD, is a smoker ? Plan ? Follow respiratory viral panel ? Has received 80 mg IV push Lasix ? Start 40 mg IV push Lasix every 12 hours starting at 6 AM ? Recheck potassium, monitor creatinine ? Will consider steroids based on clinical progress ? DuoNeb next?budesonide ? Full code ? Eliquis for DVT prophylaxis A-fib with RVR ? Continue Cardizem drip ? Cardiac echo ? Continue Eliquis therapy Hyperkalemia ? Status post insulin, calcium gluconate, Lasix -recheck potassium at 11 PM Attestations 2 Medical Necessity Statement*: Patient requires hospitalization, inpatient, greater than 2 midnights, for acute CHF exacerbation, A-fib with RVR, acute hypoxic respiratory failure Diagnoses Atrial fibrillation with RVR I48.91 Acute exacerbation of CHF (congestive heart failure) I50.9 End stage COPD J44.9 Oxygen dependent Z99.81 Acute respiratory failure with hypoxia J96.01 Hyperkalemia E87.5
[2024-06-03 21:48] LABS: Adenovirus Not Detected (NOT DETECT); Chlamydia Pneumoniae Not Detected (NOT DETECT); Coronavirus 229E,HKU1,NL63,OC4 Not Detected (NOT DETECT); Human Metapneumovirus Not Detected (NOT DETECT); Human Rhinovirus/Enterovirus Not Detected (NOT DETECT); Influenza A Not Detected (NOT DETECT); Influenza A H1 Not Detected (NOT DETECT); Influenza A H1-2009 Not Detected (NOT DETECT); Influenza A H3 Not Detected (NOT DETECT); Influenza B Not Detected (NOT DETECT); Mycoplasma Pneumoniae Not Detected (NOT DETECT); Parainfluenza Virus Type 1 Not Detected (NOT DETECT); Parainfluenza Virus Type 2 Not Detected (NOT DETECT); Parainfluenza Virus Type 3 Not Detected (NOT DETECT); Parainfluenza Virus Type 4 Not Detected (NOT DETECT); Respiratory Syncytial Virus A Not Detected (NOT DETECT); Respiratory Syncytial Virus B Not Detected (NOT DETECT); SARS-COV-2 Not Detected (NOT DETECT)
[2024-06-03 22:12] LABS: Troponin 5 2HR 33.61 ng/L (0-15)
[2024-06-03] MEDS: albuterol 2.5 mg/3 mL Neb INHALATION (22:13)
[2024-06-03 22:15] LABS: Troponin 5 2HR Delta -7.39 ABS# (0-10)
[2024-06-03 22:20] LABS: Anion Gap 6.1 (5-19); Blood Urea Nitrogen 16 mg/dL (8-23); Calcium 9.4 mg/dL (8.5-10.5); Carbon Dioxide 40 mmol/L (22-29); Chloride 100 mmol/L (98-107); Chol HDL Ratio 3.84 mg/dL (1.0-5.00); Cholesterol 119 mg/dL (0-200); Creatinine Clr Calc Pharmacy 88.1892; Glucose 182 mg/dL (65-115); HDL Cholesterol 31 mg/dL (60-100); LDL Cholesterol Calculated 75 mg/dL (50-129); LDL HDL Ratio 2.42 RATIO (0.00-3.22); Osmolality Calculated 298 mOsm/kg (285-295); Potassium 5.1 mmol/L (3.5-5.1); Sodium 141 mmol/L (136-145); Thyroid Stimulating Hormone 4.36 uIU/mL (0.27-4.20); Triglycerides 66 mg/dL (0-150)
[2024-06-03 22:39] LABS: Estmated Average Glucose 140; Hemoglobin A1C 6.5 % (4.0-6.0)
[2024-06-03] MEDS: apixaban 5 mg Tablet PO (23:24)
[2024-06-03] MEDS: pantoprazole 40 mg SDV IVP (23:24)
[2024-06-04] VITALS (159 sets, daily range): BP systolic 96–128; BP diastolic 65–94; PULSE 69–125; RESP 14–44; TEMP 36.7–36.9; O2SAT 80–97
[2024-06-04 01:21] LABS: Troponin 5 6HR 39.76 ng/L (0-15)
[2024-06-04 01:29] LABS: Troponin 5 6HR Delta -1.24 ng/L (0-12)
[2024-06-04] MEDS: dilTIAZem 100 MG in sodium chloride 0.9% (add-van) 100 ML 12.5 MG IV (03:32)
[2024-06-04 04:11] LABS: Basophils % 0.5 %; Eosinophils % 0.4 %; Hematocrit 42.9 % (37-53); Lymphocytes # 0.8 10^3/uL (0.8-4.8); Lymphocytes % 9.6 %; Mean Corpuscular HGB Conc 29.6 g/dL (30-55); Mean Corpuscular Hemoglobin 27.6 pg (27-33); Mean Corpuscular Volume 93.3 fl (82-101); Mean Platelet Volume 9.8 fL (7.4-10.4); Monocytes # 0.7 10^3/uL (0.2-0.9); Monocytes % 8.6 %; Neutrophils % 80.6 %; Nucleated Red Blood Cells % 0 %; Platelet Count 248 10^3/cmm (157-399); Red Cell Distribution Width 15.7 % (12.1-15.1); White Blood Count 7.81 10^3/uL (3.29-11.43)
--- NOTE | 2024-06-04 05:13 | ECG_ITS ---
[facility] Test Date: 2024-06-04 Pat Name: Gareth Pickering Department: Room: 112 Gender: Male Hot Dipper: : 1960 Requested By: Stephen Ball Order Number: [id number] Hoang MD: Mario Hanson M.D. Measurements Intervals [place] Rate: 82 P: 0 MT: 0 QRS: 87 QRSD: 114 T: -19 QT: 359 QTc: 420 Interpretive Statements ATRIAL FIBRILLATION WITH ABERRANT CONDUCTION OR VENTRICULAR PREMATURE COMPLEXES LOW QRS VOLTAGE IN EXTREMITY LEADS [QRS DEFLECTION < 0.5 mV IN LIMB LEADS] RIGHT BUNDLE BRANCH BLOCK [120+ ms QRS DURATION, UPRIGHT V1, 40+ ms S IN I/aVL/V4/V5/V6] ANTEROSEPTAL MYOCARDIAL INFARCTION , OF INDETERMINATE AGE [40+ ms Q WAVE IN V1-V4] Compared to ECG 06/03/2024 21:09:35 Ventricular premature complex(es) now present Aberrant conduction of supraventricular beat(s) now present Myocardial infarct finding still present Electronically Signed On 06-04-2024 11:18:09 CDT by Mario Hanson M.D. [id number]
[2024-06-04] MEDS: FUROsemide 10 mg/mL SDV 4mL 40 MG IVP ×2 (06:22→18:41)
[2024-06-04] MEDS: ipratropium-albuterol 3 mL Neb INHALATION ×4 (08:11→21:30)
[2024-06-04] MEDS: budesonide 0.5 mg/2 mL Neb INHALATION ×2 (08:12→21:30)
[2024-06-04] MEDS: apixaban 5 mg Tablet PO ×2 (08:49→18:41)
--- NOTE | 2024-06-04 09:13 | PC.PHAR ---
Pt states needs help with his medications, he is crappy at taking them correctly. Pt should be out of some medications according to pharmacy and last fill dates/days supply.
--- NOTE | 2024-06-04 09:58 | PC.CHAP ---
Pastoral Care Encounter/Spiritual Assessment Type of Contact [] Declined chemical operations specialist visit [] Patient/Family/Request visit [] Outpatient visit [] Follow-up visit [] Physician referral [] Code/Alert [x] Routine visit [] Staff referral [] Actively dying [x] Patient sleeping [] Family support [] [] Out of room [] Palliative care [] [] Receiving care in room [] Pre-surgical visit [] Trauma [] Long length of stay [] ICU visit [] Other: Relational/Emotional Strength [] Patient feels connected with others/family/visitors/staff [] Distress [] Loneliness/isolation [] Abandonment Spirituality of Patient [] Person of Xenia [] Attends Nondenominational of their Xenia [] Believes in Prayer [] Reads Bible or Mandaeism materials [] There are Spiritual issues to be addressed Commercial Engineer Interventions [x] Prayer [] Active listening [] Non-anxious presence [] Spiritual/emotional support [] Crisis/trauma care [] Spiritual counseling [] Bereavement support [] Provided bereavement packet [] Provided Bible/devotional materials [] Provided toy/stuffed animal, coloring book to patient or family member [] Provided Communion [] Anointing/[place] [] Salvation [] Completed spiritual assessment [] Other: Impact on Illness or Injury [] Angry [] Fearful [] Anxious [] Often cries [] Exhaustion [] Unable to work [] Unable to attend jewish [] Unable to walk/stand [] Unable to read [] Unable to drive [] Unable to eat/drink [] Unable to sleep [] Unable to be with family [] Patient intubated [] Other: Summary Time spent with patient
[2024-06-04] MEDS: dilTIAZem 100 MG in sodium chloride 0.9% (add-van) 100 ML IV (13:52)
[2024-06-04] MEDS: LORazepam 2 mg/mL INJ 1 mL 0.5 MG IVP (14:53)
--- NOTE | 2024-06-04 17:26 | P.PN_ITS ---
Subjective 2 Subjective: Patient is stating that he is living in a camper but his camper is nonfunctional at this point for last 1 week he has been with his friend, told his nurse that he took methamphetamine few days ago Patient is stating that he takes his medications occasionally not on daily basis Smokes half a pack a day Uses 6 L of oxygen at baseline Heart rate has been fluctuating between 95-110 on Cardizem drip at 2.5 Vitals/I&O/Wt Last Vital Signs Temp 98.5 F 06/04/24 17:00 Pulse 96 06/04/24 17:10 Resp 23 H 06/04/24 17:10 BP 128/94 06/04/24 17:10 Pulse Ox 93 06/04/24 17:10 O2 Del Method Nasal Cannula 06/04/24 16:36 O2 Flow Rate 6 06/04/24 16:36 06/04/24 06/04/24 06/04/24 06:59 14:59 22:59 Intake Total 91.25 / 348.125 850.000 / 850.000 300 / 1150.000 Output Total 1500 / 1500 1900 / 1900 1700 / 3600 Balance -1408.75 / -1151.875 -1050.000 / -1050.000 -1400 / -2450.000 Weight last 48 hrs Weight 95.254 kg Weight 95.254 kg Weight 95.254 kg Physical Exam 2 Narrative: Venous stasis dermatitis Currently on 6 L A-fib RVR Groggy and drowsy Able to answer questions Nonfocal neuroexam Able to walk to the bathroom with assistance Knight catheter in place No audible stridor has mild rhonchi Data 06/04/24 03:44 06/03/24 21:28 Micro: Microbiology 06/03/24 19:52 Blood Culture - Preliminary Blood SPECIMEN COLLECTED 06/03/24 19:38 Blood Culture - Preliminary Blood SPECIMEN COLLECTED A&P Assessment and plan (1) Non-compliance: (2) Substance abuse: (3) Heart failure with mildly reduced ejection fraction (HFmrEF): (4) Atrial fibrillation with RVR: (5) Bladder incontinence: Qualifiers: Urinary Incontinence type: mixed stress and urge incontinence Qualified Code(s): N39.46 - Mixed incontinence (6) Lower extremity edema: (7) Smoker: (8) Moderate tobacco use disorder: Plan A-fib RVR Continue metoprolol wean off Cardizem Continue Eliquis Will request free T4 abnormal TSH noted Active smoker, COPD, uses 6 L baseline Today patient is back to his baseline oxygen requirement of 6 L Active smoker Acute systolic CHF exacerbation Continue diuresis Patient smokes half a pack a day, currently living with a friend, lives in a camper Stating his medical DPOA is his brother who lives in [facility], name is Mr. Castaneda In [place] there is a friend with name of Maylin who should be contacted if something happens to him Request drug screen Hyperkalemia: Resolved Attestations 2 Medical Necessity Statement*: Continue medical management Diagnoses Non-compliance Z91.199 Substance abuse F19.10 Heart failure with mildly reduced ejection fraction (HFmrEF) I50.22 Atrial fibrillation with RVR I48.91 Mixed stress and urge urinary incontinence N39.46 Urinary Incontinence type: mixed stress and urge incontinence Lower extremity edema R60.0 Smoker F17.200 Moderate tobacco use disorder F17.200
[2024-06-04] MEDS: metoprolol tartrate 50 mg Tablet PO ×2 (18:41→21:03)
[2024-06-04 18:59] LABS: Amphetamines Screen Urine Negative (Negative); Barbiturates Screen Urine Negative (Negative); Benzodiazepines Screen Urine Negative (Negative); Cocaine Screen Urine Negative (Negative); Opiate Screen Urine Negative (Negative); PCP Screen Urine Negative (Negative); THC Screen Urine Negative (Negative)
[2024-06-04 19:45] LABS: Free T4 Free Thyroxine 0.71 ng/dL (0.82-1.77)
[2024-06-04] MEDS: pantoprazole 40 mg SDV IVP (21:03)
--- NOTE | 2024-06-04 21:36 | USCV_ITS ---
Gareth Pickering Age: 63 Gender: M : 1960 Exam Date: 06/04/2024 07:36 Ordering Phys: Constantine Zapata MD Technologist: Exam Location: [facility] [place] Indication: cp sob BP: 96 / 65 HR: 95 Rhythm: Sinus Technical Quality: Adequate MEASUREMENTS (Male / Female) Normal Values 2D ECHO LV Diastolic Diameter PLAX 5.3 cm 4.2 - 5.9 / 3.9 - 5.3 cm IVS Diastolic Thickness 1.3 cm 0.6 - 1.0 / 0.6 - 0.9 cm IVS Systolic Thickness 1.5 cm LVPW Diastolic Thickness 1.6 cm 0.6 - 1.0 / 0.6 - 0.9 cm LVPW Systolic Thickness 2.5 cm LVOT Diameter 2.0 cm LV Ejection Fraction 2D Teich 62.6 % LV Ejection Fraction MOD 4C 63.3 % LV Ejection Fraction MOD 2C 36.9 % LV Ejection Fraction 2C AL 37.9 % LA Diameter 5.3 cm RA Systolic Volume 4C AL 319.6 ml RA Systolic Volume 4C MOD 303.9 ml Aorta at Sinotubular Diameter 3.0 cm IVC Diameter 1.8 cm M-MODE LA Ao Ratio MM 1.6 AV Cusp Separation MM 2.1 cm DOPPLER AV Peak Velocity 123.0 cm/s LVOT Peak Velocity 91.0 cm/s AV Area Cont Eq vti 2.5 cm squared AV Area Cont Eq pk 2.4 cm squared MV Peak Velocity 122.0 cm/s MV Area PHT 6.6 cm squared Mitral E to A Ratio 1.1 TV Peak Velocity 262.0 cm/s TR Peak Velocity 299.0 cm/s TR Peak Gradient 35.8 mmHg TV Peak E Velocity 133.0 cm/s Right Atrial Pressure 3.0 mmHg Pulmonary Artery Systolic Pressu 38.8 mmHg PV Peak Velocity 91.0 cm/s FINDINGS Left Ventricle Normal left ventricular size and systolic function, EF 62%. No regional wall motion abnormalities. Right Ventricle Normal right ventricular systolic function. Right Atrium Moderately increased right atrial size. 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 Mitral Valve Moderate eccentric mitral valve regurgitation, with a regurgitant jet directed posteriorly. Grade 2 prolapse of the anterior mitral leaflet Aortic Valve Thickened aortic valve. Tricuspid Valve Anas-do-pihicozi tricuspid valve regurgitation. Estimated pulmonary artery peak systolic pressure 39 mmHg Pulmonic Valve No gross abnormalities noted Pericardium Normal pericardium without effusion. Aorta Normal aortic annulus size. IVC The inferior vena cava appears normal. CONCLUSIONS Normal left ventricular size and systolic function, EF 62%. No regional wall motion abnormalities. Moderately increased right atrial size. 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 Thickened aortic valve with a trace of aortic regurgitation Moderate eccentric mitral valve regurgitation, with a regurgitant jet directed posteriorly. Grade 2 prolapse of the anterior mitral leaflet. [id number] tricuspid valve regurgitation. Mild pulm hypertension with an estimated pulmonary artery peak systolic pressure of 39 mmHg Mildly increased left atrial size. There is no pericardial effusion. There are no intracardiac masses. No similar previous studies are available for comparison Compared to the previous study from 04/01/2023, there may not be a significant change Dr Tino Lowery MD [facility] (Electronically Signed) Final Date: 04 June 2024 12:44 S
[2024-06-04] MEDS: haloperidol inj 5 mg/mL INJ 1 mL 2 MG IM (23:46)
[2024-06-05] VITALS (17 sets, daily range): BP systolic 90–136; BP diastolic 61–101; PULSE 60–120; RESP 13–25; TEMP 36.3–37; O2SAT 69–96
--- NOTE | 2024-06-05 00:17 | PC.NURSE ---
Patient requesting to be put in wheelchair and pushed around in hallways for 30 minutes to an hour . Upon staff leaving room to find a wheelchair patient began yelling and being belligerent. Explained to patient that in order for him to be able to be pushed in a wheelchair staff would have to leave room to go get one. Patient continued yelling and cursing, telling staff to get out of his room. yarding supervisor and security came to speak to patient. Patient continued yelling and cursing, telling them to also get out of his room. Notified Dr. Zapata of patients behavior, given a ONE time PRN dose of 2mg IM Haldol. Educated on possible side effects of this medication, patient agreed to take at this time. Educated patient on use of call light. Bedside table and call light placed within reach of patient, side rails up x2 with bed in lowest position, continuous telemetry and vs monitoring in use.
[2024-06-05] MEDS: FUROsemide 10 mg/mL SDV 4mL 40 MG IVP (05:35)
[2024-06-05] MEDS: ondansetron 2 mg/ML SDV 2 mL 4 MG IVP (06:09)
[2024-06-05] MEDS: ipratropium-albuterol 3 mL Neb INHALATION ×4 (06:10→20:24)
[2024-06-05] MEDS: budesonide 0.5 mg/2 mL Neb INHALATION ×2 (06:11→20:24)
[2024-06-05] MEDS: apixaban 5 mg Tablet PO ×2 (09:15→16:55)
[2024-06-05] MEDS: amiodarone 200 mg Tablet 400 MG PO (09:17)
[2024-06-05] MEDS: levothyroxine 25 mcg Tablet PO (09:17)
[2024-06-05] MEDS: metoprolol tartrate 50 mg Tablet PO ×2 (09:19→20:50)
--- NOTE | 2024-06-05 12:01 | P.PN_ITS ---
Subjective 2 Subjective: Patient had to be given anxiolytics and sedatives overnight because of his aggressive behavior This morning he wanted to leave AMA but decided to stay 1 day because his blood pressure was staying on the softer side, he became short of breath he did not allow us to get another ABG, refusing labs, has been yelling and cursing the staff Stating that in case of worsening of difficulty breathing he does not want to be intubated in case of cardiac arrest which should get in touch with his uncle Thomas Castaneda. Patient is stating that he is not interesting in giving answers to these stupid questions. Vitals/I&O/Wt Last Vital Signs Temp 97.7 F 06/05/24 11:55 Pulse 60 06/05/24 11:55 Resp 20 H 06/05/24 11:55 BP 90/61 06/05/24 11:55 Pulse Ox 90 06/05/24 11:55 O2 Del Method Nasal Cannula 06/05/24 11:55 O2 Flow Rate 5 06/05/24 11:55 FiO2 6 06/05/24 06:13 06/04/24 06/05/24 06/05/24 22:59 06:59 14:59 Intake Total 300 / 1150.000 580 / 580 Output Total 1700 / 3600 Balance -1400 / -2450.000 580 / 580 Weight last 48 hrs Weight 95.254 kg Weight 95.254 kg Weight 95.254 kg Weight 95.254 kg Physical Exam 2 Narrative: Sign of fluid overload improving Venous's dermatitis Diminished breath sounds bilaterally A-fib without RVR Blood pressure 90/61 mg mercury Agitated S1, S2 variable Awake and alert able to answer questions Patient very hateful toward the staff and the physician Data 06/04/24 03:44 06/03/24 21:28 Micro: Microbiology 06/03/24 19:52 Blood Culture - Preliminary Blood NEGATIVE TO DATE 06/03/24 19:38 Blood Culture - Preliminary Blood NEGATIVE TO DATE A&P Assessment and plan (1) Non-compliance: (2) Substance abuse: (3) Heart failure with mildly reduced ejection fraction (HFmrEF): (4) Atrial fibrillation with RVR: (5) Bladder incontinence: Qualifiers: Urinary Incontinence type: mixed stress and urge incontinence Qualified Code(s): N39.46 - Mixed incontinence (6) Lower extremity edema: (7) Smoker: (8) Moderate tobacco use disorder: Plan A-fib RVR Has been weaned off Cardizem drip We are continuing metoprolol and added amiodarone Continue anticoagulating agent Hypothyroid: Added low-dose levothyroxine New diagnosis of hypothyroidism low T4 with high TSH Active smoker, COPD, uses 6 L baseline Patient is not long is to get another ABG Acute systolic CHF exacerbation Diastolic CHF Holding off on diuresis today for low blood pressure Patient smokes half a pack a day, currently living with a friend, lives in a camper Stating his medical DPOA is his brother who lives in [facility], name is Mr. Castaneda In [place] there is a friend with name of Maylin who should be contacted if something happens to him Request drug screen: Which is negative Attestations 2 Medical Necessity Statement*: Continue medical management Diagnoses Non-compliance Z91.199 Substance abuse F19.10 Heart failure with mildly reduced ejection fraction (HFmrEF) I50.22 Atrial fibrillation with RVR I48.91 Mixed stress and urge urinary incontinence N39.46 Urinary Incontinence type: mixed stress and urge incontinence Lower extremity edema R60.0 Smoker F17.200 Moderate tobacco use disorder F17.200
[2024-06-05 13:16] LABS: Basophils % 0.3 %; Eosinophils # 0.1 10^3/uL (0.0-0.8); Eosinophils % 0.9 %; Hematocrit 43.7 % (37-53); Lymphocytes # 1.1 10^3/uL (0.8-4.8); Lymphocytes % 15.9 %; Mean Corpuscular HGB Conc 30.4 g/dL (30-55); Mean Corpuscular Hemoglobin 27.9 pg (27-33); Mean Corpuscular Volume 91.6 fl (82-101); Mean Platelet Volume 9.5 fL (7.4-10.4); Monocytes # 0.6 10^3/uL (0.2-0.9); Monocytes % 8.1 %; Neutrophils # 5.25 10^3/uL (1.8-7.7); Neutrophils % 74.7 %; Nucleated Red Blood Cells % 0 %; Platelet Count 233 10^3/cmm (157-399); Red Blood Count 4.77 10^6/uL (3.85-5.65); Red Cell Distribution Width 15.1 % (12.1-15.1); White Blood Count 7.03 10^3/uL (3.29-11.43)
[2024-06-05 13:47] LABS: Anion Gap 6.2 (5-19); Blood Urea Nitrogen 25 mg/dL (8-23); Calcium 9.3 mg/dL (8.5-10.5); Chloride 94 mmol/L (98-107); Glomerular Filtration Rate 84.7 mL/min (90-130); Glucose 130 mg/dL (65-115); Magnesium 1.5 mg/dL (1.7-2.3); Osmolality Calculated 294 mOsm/kg (285-295); Potassium 4.2 mmol/L (3.5-5.1); Sodium 139 mmol/L (136-145)
[2024-06-05 14:06] LABS: Carbon Dioxide 43 mmol/L (22-29)
--- NOTE | 2024-06-05 16:52 | PC.NURSE ---
pt offered BIPAP, pt refused.
[2024-06-05] MEDS: morphine 4 mg/mL SDV 1 mL 1 MG IVP (17:00)
[2024-06-05] MEDS: ALPRAZolam 0.5 mg Tablet PO (17:11)
[2024-06-05] MEDS: pantoprazole 40 mg SDV IVP (20:50)
[2024-06-05] MEDS: quetiapine 25 mg Tablet PO (20:50)
[2024-06-06] VITALS (8 sets, daily range): BP systolic 93–147; BP diastolic 60–72; PULSE 70–118; RESP 16–24; TEMP 36.5–36.8; O2SAT 89–100
[2024-06-06] MEDS: levothyroxine 25 mcg Tablet PO (06:21)
[2024-06-06] MEDS: budesonide 0.5 mg/2 mL Neb INHALATION (08:00)
[2024-06-06] MEDS: ipratropium-albuterol 3 mL Neb INHALATION ×3 (08:00→15:59)
--- NOTE | 2024-06-06 08:44 | PC.NURSE ---
Provider is notified that his blood pressures have been soft. Provider ordered to hold the metoprolol this morning, but give others.
[2024-06-06] MEDS: apixaban 5 mg Tablet PO (08:54)
--- NOTE | 2024-06-06 09:01 | PC.NURSE ---
Provider asked nurse to add doxycycline 100mg BID.
--- NOTE | 2024-06-06 09:28 | PC.NURSE ---
Patient has been asked several times this morning to take his amiodarone, doxycline, IV mag and NS bolus. Patient has refused everytime.
--- NOTE | 2024-06-06 09:32 | PC.NURSE ---
Provider has been notified that patient is refusing to take his medications.
--- NOTE | 2024-06-06 11:38 | P.PN_ITS ---
Subjective 2 Subjective: Patient is showing signs of contraction alkalosis I requested magnesium and IV fluid this morning patient refused both Stating that he is not interested in getting these medications Vitals/I&O/Wt Last Vital Signs Temp 97.7 F 06/06/24 11:30 Pulse 102 H 06/06/24 11:35 Resp 18 06/06/24 11:35 BP 113/72 06/06/24 11:30 Pulse Ox 92 06/06/24 11:35 O2 Del Method Nasal Cannula 06/06/24 11:35 O2 Flow Rate 4 06/06/24 11:35 FiO2 6 06/05/24 06:13 06/05/24 06/06/24 06/06/24 22:59 06:59 14:59 Intake Total 240 / 1060 480 / 480 Output Total 1100 / 1100 Balance -860 / -40 480 / 480 Weight last 48 hrs Weight 95.254 kg Weight 95.254 kg Physical Exam 2 Narrative: Patient is awake and alert Friend is at the bedside Blood pressure fluctuating MAP above 65 Heart rate fluctuate between 95-1 02 currently on 4 L nasal cannula Productive cough Data 06/05/24 13:00 06/05/24 13:00 A&P Assessment and plan (1) Non-compliance: (2) Substance abuse: (3) Heart failure with mildly reduced ejection fraction (HFmrEF): (4) Atrial fibrillation with RVR: (5) Bladder incontinence: Qualifiers: Urinary Incontinence type: mixed stress and urge incontinence Qualified Code(s): N39.46 - Mixed incontinence (6) Lower extremity edema: (7) Smoker: (8) Moderate tobacco use disorder: Plan A-fib RVR Heart rate slightly better Patient refused most of the medications today except Eliquis productive cough, added doxycycline Hypothyroid: Added low-dose levothyroxine New diagnosis of hypothyroidism low T4 with high TSH Active smoker, COPD, uses 6 L baseline Productive cough added doxycycline Acute systolic CHF exacerbation Diastolic CHF Holding off on diuresis today for low blood pressure Patient refused a small bolus of 250 mL today Patient smokes half a pack a day, currently living with a friend, lives in a camper Continue cardiac diet DVT prophylaxis covered with Eliquis Attestations 2 Medical Necessity Statement*: Continue medical management Diagnoses Non-compliance Z91.199 Substance abuse F19.10 Heart failure with mildly reduced ejection fraction (HFmrEF) I50.22 Atrial fibrillation with RVR I48.91 Mixed stress and urge urinary incontinence N39.46 Urinary Incontinence type: mixed stress and urge incontinence Lower extremity edema R60.0 Smoker F17.200 Moderate tobacco use disorder F17.200
--- NOTE | 2024-06-06 11:58 | PC.NURSE ---
Patients florence catheter is removed at 1155.
--- NOTE | 2024-06-06 11:59 | PC.NURSE ---
Patient wanted his catheter removed. He said if you do not remove this catheter I will remove it myself . Nursing removed catheter.
--- NOTE | 2024-06-06 12:00 | PC.NURSE ---
Nursing goes into room and asked if there was anything I could get for him, patient refused everything except lunch. He is told that lunch is coming soon.
--- NOTE | 2024-06-06 12:08 | PC.SOCIAL ---
IMM Updated Updated pt on IMM. No questions voiced. Provided pt a copy. Initialed, dated, & timed copy in chart.
--- NOTE | 2024-06-06 14:11 | P.DS_ITS ---
Discharge Providers Date of Admission: 06/03/24 21:31 Date of Discharge: June 06, 2024 Attending Provider at Admission: Constantine Zapata MD Attending Provider at Discharge: Yasmine Renteria MD Primary Care Provider: Sloan Arias MD Diagnoses at Discharge Discharge Diagnosis (1) Non-compliance: Status: Acute (2) Substance abuse: Status: Acute (3) Heart failure with mildly reduced ejection fraction (HFmrEF): Status: Acute (4) Atrial fibrillation with RVR: Status: Acute (5) Bladder incontinence: Status: Acute Qualifiers: Urinary Incontinence type: mixed stress and urge incontinence Qualified Code(s): N39.46 - Mixed incontinence (6) Lower extremity edema: Status: Acute (7) Smoker: Status: Acute (8) Moderate tobacco use disorder: Status: Acute Reason for Visit Reason for Visit: EYE SWELLING Hospital Course Hospital Course 63-year male, noncompliant, history of A-fib, COPD, oxygen dependence uses 6 L at baseline, takes Eliquis present to the hospital for palpitations. He was diagnosed with A-fib RVR. Patient endorsed to using methamphetamine few days prior to hospitalization. Patient was put on Cardizem drip which was slowly titrated off, secondary to low blood pressure we decided to use amiodarone p.o. regimen along continuation of Eliquis. His electrolytes were replenished aggressively. Patient was diuresed with resulted in contraction alkalosis and low blood pressure. I wanted to give him a small bolus of fluid 250 mL but patient refused, he also refused IV magnesium, he was bringing up thick yellow sputum, remained afebrile, patient is refusing most of the medications that we are offering, at the time of discharge I have added amiodarone along Augmentin. Patient is stating that currently he is living with his friend but once his camper is fixed he will plan to go back to his camper. Physical Exam Narrative: Awake and alert A-fib without RVR Sinus rule out improving Venous dermatitis Currently on 4 L Discharge Data Studies Completed and Pending Completed Studies During Hospitalization Category Date Time Status XR chest 1V portable [id number] Stat Exams 06/03/24 18:55 Completed CV. echo complete* [id number] Stat Ultrasound 06/04/24 21:36 Completed Pending at discharge Category Date Time Status Blood Culture Stat Lab 06/03/24 19:52 Results Radiology Impressions Chest X-Ray 06/03/24 18:55 IMPRESSION: Right basilar opacities may reflect atelectasis, though superimposed infection is not excluded. Laboratory Results WBC 7.03 10^3/uL (3.29-11.43) 06/05/24 13:00 RBC 4.77 10^6/uL (3.85-5.65) 06/05/24 13:00 Hgb 13.30 g/dL (11.27-16.99) 06/05/24 13:00 Hct 43.7 % (37-53) 06/05/24 13:00 MCV 91.6 fl (82-101) 06/05/24 13:00 MCH 27.9 pg (27-33) 06/05/24 13:00 MCHC 30.4 g/dL (30-55) 06/05/24 13:00 RDW 15.1 % (12.1-15.1) 06/05/24 13:00 Plt Count 233 10^3/cmm (157-399) 06/05/24 13:00 MPV 9.5 fL (7.4-10.4) 06/05/24 13:00 Neut % (Auto) 74.7 % 06/05/24 13:00 Lymph % (Auto) 15.9 % 06/05/24 13:00 Victoria % (Auto) 8.1 % 06/05/24 13:00 Eos % (Auto) 0.9 % 06/05/24 13:00 Baso % (Auto) 0.3 % 06/05/24 13:00 Neut # (Auto) 5.25 10^3/uL (1.8-7.7) 06/05/24 13:00 Lymph # (Auto) 1.1 10^3/uL (0.8-4.8) 06/05/24 13:00 Victoria # (Auto) 0.6 10^3/uL (0.2-0.9) 06/05/24 13:00 Eos # (Auto) 0.1 10^3/uL (0.0-0.8) 06/05/24 13:00 Baso # (Auto) 0.0 10^3/uL (0.0-0.1) 06/05/24 13:00 Nucleated RBC % (auto) 0 % 06/05/24 13:00 Nucleated RBCs # 0.0 /100WBC 06/05/24 13:00 PT 15.40 SECONDS (12.1-14.9) H 06/03/24 19:38 INR 1.18 (0.8-1.2) 06/03/24 19:38 APTT 32.5 SECONDS (23.9-36.7) 06/03/24 19:38 Sodium 139 mmol/L (136-145) 06/05/24 13:00 Potassium 4.2 mmol/L (3.5-5.1) 06/05/24 13:00 Chloride 94 mmol/L (98-107) L 06/05/24 13:00 Carbon Dioxide 43 mmol/L (22-29) H* 06/05/24 13:00 Anion Gap 6.2 (5-19) 06/05/24 13:00 BUN 25 mg/dL (8-23) H 06/05/24 13:00 Creatinine 0.9 mg/dL (0.7-1.2) 06/05/24 13:00 GFR Calculation 84.7 mL/min (90-130) L 06/05/24 13:00 Glucose 130 mg/dL (65-115) H 06/05/24 13:00 POC Glucose 138 mg/dL (70-110) H 06/03/24 21:34 Estimat Average Glucose 140 06/03/24 19:38 Hemoglobin A1c 6.5 % (4.0-6.0) H 06/03/24 19:38 Calculated Osmolality 294 mOsm/kg (285-295) 06/05/24 13:00 Lactic Acid 1.1 mmol/L (0.5-2.2) 06/03/24 19:38 Calcium 9.3 mg/dL (8.5-10.5) 06/05/24 13:00 Magnesium 1.5 mg/dL (1.7-2.3) L 06/05/24 13:00 Total Bilirubin 0.5 mg/dL (0.15-1.2) 06/03/24 19:38 AST 38 U/L (0-40) 06/03/24 19:38 ALT 31 U/L (0-41) 06/03/24 19:38 Alkaline Phosphatase 110 U/L (40-130) 06/03/24 19:38 Troponin T Baseline 41 ng/L (0-15) H 06/03/24 19:38 Troponin T 120 Minute 33.61 ng/L (0-15) H 06/03/24 21:28 Delta Troponin T -7.39 ABS# (0-10) L 06/03/24 21:28 Troponin T Hi Sens 6Hr 39.76 ng/L (0-15) H 06/04/24 00:44 Troponin T Hi Sens 6Hr Delta -1.24 ng/L (0-12) L 06/04/24 00:44 NT-Pro-B Natriuret Pep 6513 pg/mL (0-125) H 06/03/24 19:38 Total Protein 6.7 g/dL (6.6-8.7) 06/03/24 19:38 Albumin 3.5 g/dL (3.5-5.2) 06/03/24 19:38 Globulin 3.2 g/dL (1.3-4.6) 06/03/24 19:38 Triglycerides 66 mg/dL (0-150) 06/03/24 21:28 Cholesterol 119 mg/dL (0-200) 06/03/24 21:28 LDL Cholesterol, Calc 75 mg/dL (50-129) 06/03/24 21:28 HDL Cholesterol 31 mg/dL (60-100) L 06/03/24 21:28 LDL/HDL Ratio 2.42 RATIO (0.00-3.22) 06/03/24 21:28 Cholesterol/HDL Ratio 3.84 mg/dL (1.0-5.00) 06/03/24 21:28 TSH 4.36 uIU/mL (0.27-4.20) H 06/03/24 21:28 Free T4 0.71 ng/dL (0.82-1.77) L 06/04/24 18:26 Urine Color Yellow (Yellow) 06/03/24 19:48 Urine Appearance Clear (CLEAR) 06/03/24 19:48 Urine pH 5.0 (5-7) 06/03/24 19:48 Ur Specific [place] 1.012 (1.005-1.030) 06/03/24 19:48 Urine Protein 1+ (Negative) A 06/03/24 19:48 Urine Glucose (UA) Negative (Normal) 06/03/24 19:48 Urine Ketones Negative (Negative) 06/03/24 19:48 Urine Blood Negative (Negative) 06/03/24 19:48 Urine Nitrate Negative (Negative) 06/03/24 19:48 Urine Bilirubin Negative (Negative) 06/03/24 19:48 Urine Urobilinogen 1.0 mg/dL (Negative) 06/03/24 19:48 Ur Leukocyte Esterase Negative (Negative) 06/03/24 19:48 Urine RBC 0-2 /hpf (0-2) 06/03/24 19:48 Urine WBC 0-5 /hpf (0-5) 06/03/24 19:48 Ur Squamous Epith Cells 0-5 /hpf (0-5) 06/03/24 19:48 Amorphous Sediment Not Reportable 06/03/24 19:48 Urine Bacteria None seen /hpf (NONE) 06/03/24 19:48 Hyaline Casts 6.61 /lpf 06/03/24 19:48 Urine Opiates Screen Negative ng/mL (Negative) 06/04/24 18:02 Ur Barbiturates Screen Negative ng/mL (Negative) 06/04/24 18:02 Ur Phencyclidine Scrn Negative ng/mL (Negative) 06/04/24 18:02 Ur Amphetamines Screen Negative ng/mL (Negative) 06/04/24 18:02 U Benzodiazepines Scrn Negative ng/mL (Negative) 06/04/24 18:02 Urine Cocaine Screen Negative ng/mL (Negative) 06/04/24 18:02 U Marijuana (THC) Screen Negative ng/mL (Negative) 06/04/24 18:02 Ethyl Alcohol < 10 mg/dL (0-10) 06/03/24 19:38 Adenovirus (PCR) Not detected (NOT DETECT) 06/03/24 19:52 C. pneumoniae DNA (PCR) Not detected (NOT DETECT) 06/03/24 19:52 Coronavirus 229E (PCR) Not detected (NOT DETECT) 06/03/24 19:52 Human Metapneumovir PCR Not detected (NOT DETECT) 06/03/24 19:52 Influenza A (H1) PCR Not detected (NOT DETECT) 06/03/24 19:52 Influ A (H1/09) PCR Not detected (NOT DETECT) 06/03/24 19:52 Influenza A (H3) PCR Not detected (NOT DETECT) 06/03/24 19:52 Influenza Type A (PCR) Not detected (NOT DETECT) 06/03/24 19:52 Influenza Type B (PCR) Not detected (NOT DETECT) 06/03/24 19:52 M. pneumoniae (PCR) Not detected (NOT DETECT) 06/03/24 19:52 Parainfluenza 1 (PCR) Not detected (NOT DETECT) 06/03/24 19:52 Parainfluenza 2 (PCR) Not detected (NOT DETECT) 06/03/24 19:52 Parainfluenza 3 (PCR) Not detected (NOT DETECT) 06/03/24 19:52 Parainfluenza 4 (PCR) Not detected (NOT DETECT) 06/03/24 19:52 RSV Type A (PCR) Not detected (NOT DETECT) 06/03/24 19:52 RSV Type B (PCR) Not detected (NOT DETECT) 06/03/24 19:52 Entero/Rhino (PCR) Not detected (NOT DETECT) 06/03/24 19:52 SARS-CoV-2 (PCR) Not detected (NOT DETECT) 06/03/24 19:52 Vitals Last Vital Signs Temp 97.7 F 06/06/24 11:30 Pulse 102 H 06/06/24 11:35 Resp 18 06/06/24 11:35 BP 113/72 06/06/24 11:30 Pulse Ox 92 06/06/24 11:35 O2 Del Method Nasal Cannula 06/06/24 11:35 O2 Flow Rate 4 06/06/24 11:35 FiO2 6 06/05/24 06:13 Discharge Plan Discharge Patient Disposition: Home Health Service Condition: Stable Prescriptions: New amiodarone 400 mg tablet 400 mg PO DAILY 30 Days Qty: 30 5RF amoxicillin-pot clavulanate 875-125 mg tablet 1 tab PO BID Qty: 10 0RF Continued (DME) motorized electric scooter See Rx Instructions .Route .MEDSUPPLY Qty: 1 0RF Rx Instructions: As directed (DME) pulse oxymeter See Rx Instructions .Route .MEDSUPPLY Qty: 1 0RF Rx Instructions: As directed guaifenesin [Mucinex] 1,200 mg tablet extended release 12hr 1,200 mg PO BID Qty: 60 0RF Eliquis 5 mg tablet 5 mg PO BID Qty: 180 1RF potassium chloride 10 mEq tablet extended release 20 meq PO DAILY Qty: 180 1RF mirabegron 25 mg tablet extended release 24 hr 25 mg PO DAILY Qty: 90 1RF umeclidinium-vilanterol 62.5-25 mcg/actuation blister with device 1 inh inhalation DAILY Qty: 60 1RF albuterol sulfate 2.5 mg /3 mL (0.083 %) solution for nebulization 2.5 mg inhalation Q6H PRN (Reason: shortness of breath or wheezing) Qty: 180 5RF Rx Instructions: to use while DuoNeb is unavailable ondansetron 4 mg tablet,disintegrating 4 mg PO Q8H PRN (Reason: nausea and vomiting) Qty: 60 1RF loperamide 2 mg capsule 2 mg PO Q6H PRN (Reason: loose stool) Qty: 30 0RF (DME) home fill oxygen concentrator See Rx Instructions .Route .MEDSUPPLY Qty: 1 0RF Rx Instructions: As directed, 6L NC (DME) Electric wheelchair See Rx Instructions .Route .MEDSUPPLY Qty: 1 0RF Rx Instructions: As directed ipratropium-albuterol 0.5 mg-3 mg(2.5 mg base)/3 mL solution for nebulization 3 ml inhalation Q6H PRN (Reason: shortness of breath or wheezing) 30 Days Qty: 180 3RF tamsulosin 0.4 mg capsule 0.4 mg PO DAILY bumetanide 1 mg tablet 1 mg PO BID albuterol sulfate 90 mcg/actuation HFA aerosol inhaler 2 puff INHALATION Q6H PRN (Reason: Shortness Of Breath) bupropion HCl 150 mg tablet extended release 24 hr 150 mg PO QAM Discontinued metoprolol tartrate 50 mg tablet 50 mg PO DAILY Discharge Orders: Discharge Order (Routine); Ordered 06/06/24 Ordered By: Yasmine Renteria Referrals: [facility] ([facility]) [Outside] Sloan Arias MD [Primary Care Provider] - 7-10 days (We have notified your physician's clinic of the need for a follow-up appointment to be scheduled. If you have not heard from them within the next 2 business days, please call them directly. ) Patient Instructions: Amoxicillin/Clavulanate Potassium (By mouth), Amiodarone (By mouth), Hyperkalemia, Opioid Safety Discharge Attestations Time Spent in Discharge Care*: greater than 30 min Status at Discharge: Cognitive status at discharge: mildly impaired cognition , Behavioral status at discharge: can be uncooperative , Quality Metrics Clinical Quality Measures [ No reported AMI, CVA or VTE this stay] Coding Level of Care Code Acute Code for Chg Fwd Diagnoses Non-compliance Z91.199 Substance abuse F19.10 Heart failure with mildly reduced ejection fraction (HFmrEF) I50.22 Atrial fibrillation with RVR I48.91 Mixed stress and urge urinary incontinence N39.46 Urinary Incontinence type: mixed stress and urge incontinence Lower extremity edema R60.0 Smoker F17.200 Moderate tobacco use disorder F17.200
--- NOTE | 2024-06-06 16:42 | PC.NURSE ---
Patient is discharged with O2 from [facility] and his belongings. [facility] is transporting him home, the address on file. Patient has refused all medical care today. He is yelling and being disruptive. Nursing staff has tried multiple times to have him take his medications and daily cares.
== END 2024-06-06 17:15 | disposition home health service (06) | DRG 291 ==
LOC: ER 21:56 → CSU 22:06
PROVIDERS: Internal Medicine; Admitting Provider Family Medicine; Emergency Provider Emergency Medicine; PCP Family Medicine; Visit Provider Internal Medicine
DX: I11.0 Hypertensive heart disease with heart failure (principal); I50.23 Acute on chronic systolic (congestive) heart failure; J96.21 Acute and chronic respiratory failure with hypoxia; I48.91 Unspecified atrial fibrillation; J44.9 Chronic obstructive pulmonary disease, unspecified; Z82.49 Family history of ischemic heart disease and other diseases of the circulatory system; Z79.899 Other long term (current) drug therapy; Z88.8 Allergy status to other drugs, medicaments and biological substances; F17.210 Nicotine dependence, cigarettes, uncomplicated; Z99.81 Dependence on supplemental oxygen; E87.5 Hyperkalemia; Z91.148 Patient's other noncompliance with medication regimen for other reason; I87.2 Venous insufficiency (chronic) (peripheral); N39.46 Mixed incontinence; F19.10 Other psychoactive substance abuse, uncomplicated; Z91.199 Patient's noncompliance with other medical treatment and regimen due to unspecified reason; E03.9 Hypothyroidism, unspecified
CPT/HCPCS: 36415; 36416; 71045; 80048; 80053; 80061; 80306; 80307; 81003; 81015; 82962; 83036; 83605; 83735; 83880; 84439; 84443; 84484; 85025; 85610; 85730; 87040; 87486; 87581; 87633; 93005; 93306; 94640; 94664; 96365; 96366; 96372; 96375; 96376; 99285; A9270; J0612; J1630; J1815; J1940; J2060; J2270; J2405; J2470; J3490; J7613; J7626; J7799

== ENCOUNTER 2024-07-14 00:36 | Inpatient (IN) | payer MEDICARE, MEDICAID, SELFPAY ==
[2024-07-14] VITALS (63 sets, daily range): BP systolic 68–124; BP diastolic 48–87; PULSE 56–109; RESP 4–29; TEMP 36.1–36.7; O2SAT 70–100; BMI 27.6
--- NOTE | 2024-07-14 01:06 | ECG_ITS ---
[facility] Test Date: 2024-07-14 Pat Name: Gareth Pickering Department: Room: [facility] Gender: Male Slat Twister: : 1960 Requested By: Leesa Harvey Order Number: [id number] Reading MD: SURY HEBERT Measurements Intervals Webber Rate: 71 P: 0 HI: 0 QRS: 100 QRSD: 120 T: 50 QT: 406 QTc: 441 Interpretive Statements ATRIAL FIBRILLATION RIGHT BUNDLE BRANCH BLOCK [120+ ms QRS DURATION, UPRIGHT V1, 40+ ms S IN I/aVL/V4/V5/V6] ANTEROSEPTAL MYOCARDIAL INFARCTION , PROBABLY OLD [40+ ms Q WAVE IN V1-V4] Compared to ECG 06/04/2024 05:13:20 Ventricular premature complex(es) no longer present Aberrant conduction of supraventricular beat(s) no longer present Myocardial infarct finding still present Electronically Signed On 07-14-2024 18:14:38 CDT by SURY HEBERT [email or web address]
--- NOTE | 2024-07-14 01:43 | PC.NURSE ---
to room with MD, charge nurse, security, and tech. pt still refusing IV. states we will have to treat him without one. Pt begins yelling and cussing at staff again saying we will not be starting an IV on him.
--- NOTE | 2024-07-14 01:48 | XRR_ITS ---
PROCEDURE INFORMATION: Exam: XR Chest Exam date and time: 07/14/2024 2:12 AM Age: 63 years old Clinical indication: Shortness of breath; Prior surgery; Surgery date: 6+ months; Surgery type: Costal fixation; Patient HX: SOB with hypoxia. History of chf. Sind TECHNIQUE: Imaging protocol: Radiologic exam of the chest. Views: 1 view. COMPARISON: CR (CHEST, ) 06/03/2024 7:21 PM FINDINGS: Lungs: Unremarkable. No consolidation. Pleural spaces: Unremarkable. No pleural effusion. No pneumothorax. Heart/Mediastinum: Cardiomegaly with globular appearance may represent a large pericardial effusion. Bones/joints: Left-sided rib plating. XR/XR chest 1V portable [id number] IMPRESSION: Cardiomegaly with globular appearance may represent a large pericardial effusion. Consider CT chest for further evaluation.
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
--- NOTE | 2024-07-14 01:56 | PC.NURSE ---
RT to room to draw ABG. pt refusing. now asking for supervisor heavy equipment.
--- NOTE | 2024-07-14 02:00 | PC.NURSE ---
Lab staff to room to attempt lab draw. pt refusing lab work.
--- NOTE | 2024-07-14 02:05 | PC.NURSE ---
MD to room. pt still refusing care.
--- NOTE | 2024-07-14 02:13 | PC.RESP ---
Pt Refuses to allow ABGs to be drawn
[2024-07-14 02:17] LABS: Basophils % 0.6 %; Eosinophils # 0.1 10^3/uL (0.0-0.8); Eosinophils % 1.2 %; Hematocrit 48.6 % (37-53); Lymphocytes # 1.2 10^3/uL (0.8-4.8); Lymphocytes % 17.2 %; Mean Corpuscular Hemoglobin 27.4 pg (27-33); Mean Corpuscular Volume 94.4 fl (82-101); Mean Platelet Volume 9.1 fL (7.4-10.4); Monocytes # 0.6 10^3/uL (0.2-0.9); Monocytes % 8.7 %; Neutrophils # 4.94 10^3/uL (1.8-7.7); Neutrophils % 71.7 %; Nucleated Red Blood Cells % 0 %; Platelet Count 303 10^3/cmm (157-399); Red Blood Count 5.15 10^6/uL (3.85-5.65); Red Cell Distribution Width 15.8 % (12.1-15.1); White Blood Count 6.88 10^3/uL (3.29-11.43)
[2024-07-14 02:28] LABS: ABG PH Result 7.25 (7.35-7.45); Arterial Blood Gas Hematocrit 45.3 % (42-52); Base Excess ABG 0.8 mmol/L (-2.0-2.0); Blood Gas Operator Identificat SAM; Blood Gas Sample Type Venous; PO2 ABG 60.3 mmHg (80.0-100.0)
[2024-07-14 02:40] LABS: Lactic Sepsis W/Reflex 2.2 mmol/L (0.5-2.2)
[2024-07-14 02:50] LABS: Alanine Aminotransferase 19 U/L (0-41); Albumin Level 3.3 g/dL (3.5-5.2); Alcohol Level < 10 mg/dL (0-10); Alkaline Phosphatase 114 U/L (40-130); Anion Gap 12.9 (5-19); Aspartate Amino Transferase 36 U/L (0-40); Blood Urea Nitrogen 22 mg/dL (8-23); Calcium 8.5 mg/dL (8.5-10.5); Carbon Dioxide 30 mmol/L (22-29); Chloride 104 mmol/L (98-107); Creatinine Clr Calc Pharmacy 67.8378; Globulin 3.3 g/dL (1.3-4.6); Glomerular Filtration Rate 55.4 mL/min (90-130); Glucose 99 mg/dL (65-115); NT Pro B Type Natriuretic Pept 4624 pg/mL (0-125); Osmolality Calculated 297 mOsm/kg (285-295); Potassium 4.9 mmol/L (3.5-5.1); Sodium 142 mmol/L (136-145); Total Bilirubin 0.7 mg/dL (0.15-1.2); Total Protein 6.6 g/dL (6.6-8.7)
[2024-07-14 03:21] LABS: Oxygen Device nc
--- NOTE | 2024-07-14 03:38 | PC.NURSE ---
to room to assess pt. pt resting comfortably with eyes closed. respirations even and non-labored. extremities still cold. more warm blankets applied. pt still refusing care and states he does not want me in his room. will continue to monitor.
[2024-07-14 04:02] LABS: Reflex Lactate Order REFLEX LACTIC ORDERD
--- NOTE | 2024-07-14 04:07 | ED_ITS ---
HPI - SOB/Dyspnea 2 General: Chief Complaint: Shortness of Breath/Dyspnea Stated Complaint: leg sores, sob Time Seen by Provider: 07/14/24 01:26 History of Present Illness: HPI Narrative: This patient is a 63-year-old white male who presents to the emergency department with hypoxia. Patient was dropped off at the lobby by a family member and they left so they were unable to help with history and management of the patient. Patient was combative and verbally abusive upon arrival. He would not allow us to help him in any way. He was threatening to alice everyone. Did eventually get him to cooperate based being somewhat tabares with him. We did get him on 6 L of oxygen and sats improved up into the low 90s. He has a history of COPD, congestive heart failure, atrial fibrillation, substance abuse and noncompliance. Associated symptoms: Deny chest pain Related Data Home Medications Medication Instructions Recorded Confirmed albuterol sulfate 90 mcg/actuation 2 puff inhalation Q6H PRN 06/04/24 06/04/24 aerosol inhaler Shortness Of Breath bumetanide 1 mg tablet 1 mg PO BID 06/04/24 06/04/24 bupropion HCl 150 mg 24 hr tablet, 150 mg PO QAM 06/04/24 06/04/24 extended release tamsulosin 0.4 mg capsule 0.4 mg PO DAILY 06/04/24 06/04/24 Previous Rx's Medication Instructions Recorded home fill oxygen concentrator #1 ea 04/19/23 motorized electric scooter #1 ea 04/26/23 pulse oxymeter #1 ea 04/26/23 Electric wheelchair #1 ea 05/04/23 ipratropium 0.5 mg-albuterol 3 mg 3 ml inhalation Q6H PRN shortness 11/21/23 (2.5 mg base)/3 mL nebulization of breath or wheezing 30 days #180 soln mL guaifenesin 1,200 mg tablet, 1,200 mg PO BID #60 tabs 03/14/24 extended release 12 hr (Mucinex) albuterol sulfate 2.5 mg/3 mL 2.5 mg (3 mL) inhalation Q6H PRN 04/27/24 (0.083 %) solution for nebulization shortness of breath or wheezing #180 mL apixaban 5 mg tablet (Eliquis) 5 mg PO BID #180 tabs 04/27/24 loperamide 2 mg capsule 2 mg PO Q6H PRN loose stool #30 04/27/24 caps mirabegron 25 mg tablet,extended 25 mg PO DAILY #90 tabs 04/27/24 release 24 hr ondansetron 4 mg disintegrating 4 mg PO Q8H PRN nausea and 04/27/24 tablet vomiting #60 tabs potassium chloride 10 mEq 20 meq (2 x 10 mEq) PO DAILY #180 04/27/24 tablet,extended release tabs umeclidinium 62.5 mcg-vilanterol 1 inh inhalation DAILY #60 ea 04/27/24 25 mcg/actuation powdr for inhalation amiodarone 400 mg tablet 400 mg PO DAILY 1 month #30 tabs 06/06/24 amoxicillin 875 mg-potassium 1 tab PO BID #10 tabs 06/06/24 clavulanate 125 mg tablet Allergies Allergy/AdvReac Type Severity Reaction Status Date / Time amiodarone AdvReac Intermediate ADR-Gastrointestinal Verified 07/14/24 00:55 Upset Review of Systems 2 General: Reports: 10 or more systems reviewed and unremarkable except in HPI and below Card: Denies: chest pain Resp: Reports: dyspnea PFSH ED 2 PFSH: Medical History Tobacco use disorder Heart failure with mildly reduced ejection fraction (HFmrEF) Right heart failure with reduced right ventricular function Rib deformity Acute and chronic respiratory failure with hypoxia Atrial fibrillation with RVR Acute exacerbation of chronic obstructive airways disease Hyperlipidemia Atrial fibrillation COPD (chronic obstructive pulmonary disease) Surgical History History of colon surgery Family History Other CAD (coronary artery disease) Hypertension Lung disease Denies family history of Diabetes Clotting disorder Dementia Hyperlipidemia Psychiatric illness Chronic kidney disease (CKD) Anesthesia complication Bleeding disorder Cancer Stroke Social History Smoking and tobacco/nicotine status: current every day tobacco/nicotine user cigarettes Packs smoked per day: 0.5 Alcohol intake: former Substance/Drug Use: never Lives independently: Yes Current occupational status: disabled Current gender identity: Male Special jeri needs: No Agree to transfusion: Yes Physical Exam 2 Const: EXAM LIMITATIONS: behavioral limitations GENERAL APPEARANCE: c ombative and disheveled HENMT: COMMON NORMALS: normocephalic, atraumatic, Normal nasal mucous membranes and turbinates present, moist oral mucous membranes and oropharynx normal HEAD & SCALP: normal to inspection, normocephalic and atraumatic F SHAUNA & SINUS: normal facial exam NOSE: Normal nasal mucous membranes and turbinates present Eye: COMMON NORMALS: Equal, round and reactive pupils present, EOMs intact bilaterally and conjunctivae normal GENERAL EYE: appearance normal, both eyes and all related structures CONJUNCTIVA: Yes conjunctivae normal PUPIL: Yes Equal, round and reactive pupils present Neck/C-Spine: COMMON NORMALS: supple and no JVD Chest: COMMONS NORMALS: normal inspection of the chest Resp: AUSCULTATION: rhonchi and wheezes Cardio: COMMON NORMALS: no JVD RHYTHM: abnormal rhythm GI: COMMON NORMALS: Normal to inspection, nondistended, normoactive bowel sounds present, Soft to palpation and non-tender AUSCULTATION: Yes normoactive bowel sounds PALPATION: Yes Soft to palpation : COMMON NORMALS: Yes no CVA tenderness BLADDER/KIDNEY EXAM: Yes no CVA tenderness Back/Pelvis: COMMON NORMALS: no CVA tenderness and thoracic and lumbar spine normal to inspection Extremity: OTHER: 3+ pitting edema both lower extremities. Neuro: COMMON NORMALS: CN's II-XII intact bilaterally Psych: COMMON NORMALS: mental status grossly normal, Normal thought process present and cooperative THOUGHT PROCESS: Normal thought process present Skin: COMMON NORMALS: no rashes or lesions noted, turgor normal and no jaundice GENERAL SKIN EXAM: no rashes or lesions noted and turgor normal Course 2 Vital Signs: Vital signs: Vital Signs Temperature 96.9 F L 07/14/24 00:51 Pulse Rate 96 07/14/24 03:34 Respiratory Rate 16 07/14/24 03:34 Blood Pressure 108/75 07/14/24 03:34 Pulse Oximetry 90 07/14/24 03:34 Oxygen Delivery Me thod Nasal Cannula 07/14/24 03:34 Oxygen Flow Rate 6 07/14/24 03:34 MDM - SOB/Dyspnea Medical Decision Making EKG revealed atrial fibrillation with a ventricular rate of 71. Right bundle branch block. No acute ST segment abnormalities. Chest x-ray reveals cardiomegaly. No obvious pleural effusions. ABG on 6 L of oxygen revealed a pH of 7.25 with a pCO2 of 68 and a pO2 of 60. CBC was normal. CMP normal. BNP was 4624 which is within his typical range. Blood alcohol level was 0. Lactic acid 2.2. Patient was given a DuoNeb treatment, Solu-Medrol and Lasix. Patient will need to be admitted on BiPAP. I discussed the case with Dr. Harvey, hospitalist. We will admit the patient to the intensive care unit. Patient will be transferred to the floor shortly. He is stable. Lab Data 07/14/24 02:12 07/14/24 02:12 Labs/Radiology: Laboratory Results WBC 6.88 10^3/uL (3.29-11.43) 07/14/24 02:12 RBC 5.15 10^6/uL (3.85-5.65) 07/14/24 02:12 Hgb 14.10 g/dL (11.27-16.99) 07/14/24 02:12 Hct 48.6 % (37-53) 07/14/24 02:12 MCV 94.4 fl (82-101) 07/14/24 02:12 MCH 27.4 pg (27-33) 07/14/24 02:12 MCHC 29.0 g/dL (30-55) L 07/14/24 02:12 RDW 15.8 % (12.1-15.1) H 07/14/24 02:12 Plt Count 303 10^3/cmm (157-399) 07/14/24 02:12 MPV 9.1 fL (7.4-10.4) 07/14/24 02:12 Neut % (Auto) 71.7 % 07/14/24 02:12 Lymph % (Auto) 17.2 % 07/14/24 02:12 D[place]y % (Auto) 8.7 % 07/14/24 02:12 Eos % (Auto) 1.2 % 07/14/24 02:12 Baso % (Auto) 0.6 % 07/14/24 02:12 Neut # (Auto) 4.94 10^3/uL (1.8-7.7) 07/14/24 02:12 Lymph # (Auto) 1.2 10^3/uL (0.8-4.8) 07/14/24 02:12 [place]y # (Auto) 0.6 10^3/uL (0.2-0.9) 07/14/24 02:12 Eos # (Auto) 0.1 10^3/uL (0.0-0.8) 07/14/24 02:12 Baso # (Auto) 0.0 10^3/uL (0.0-0.1) 07/14/24 02:12 Nucleated RBC % (auto) 0 % 07/14/24 02:12 Nucleated RBCs # 0.0 /100WBC 07/14/24 02:12 Specimen Type Venous 07/14/24 02:15 ABG pH 7.25 (7.35-7.45) L 07/14/24 02:15 ABG pCO2 68.0 mmHg (35-45) H* 07/14/24 02:15 ABG pO2 60.3 mmHg (80.0-100.0) L 07/14/24 02:15 ABG HCO3 30.0 mmol/L (22-26) H 07/14/24 02:15 ABG Base Excess 0.8 mmol/L (-2.0-2.0) 07/14/24 02:15 Jacob Test N/a 07/14/24 02:15 Hematocrit 45.3 % (42-52) 07/14/24 02:15 O2 Delivery Device nc 07/14/24 02:15 O2 Liters/Min 6.0 % 07/14/24 02:15 Summer Sessions Director ID Arturo 07/14/24 02:15 Sodium 142 mmol/L (136-145) 07/14/24 02:12 Potassium 4.9 mmol/L (3.5-5.1) 07/14/24 02:12 Chloride 104 mmol/L (98-107) 07/14/24 02:12 Carbon Dioxide 30 mmol/L (22-29) H 07/14/24 02:12 Anion Gap 12.9 (5-19) 07/14/24 02:12 BUN 22 mg/dL (8-23) 07/14/24 02:12 Creatinine 1.3 mg/dL (0.7-1.2) H 07/14/24 02:12 GFR Calculation 55.4 mL/min (90-130) L 07/14/24 02:12 Glucose 99 mg/dL (65-115) 07/14/24 02:12 Calculated Osmolality 297 mOsm/kg (285-295) H 07/14/24 02:12 Lactic Acid 2.2 mmol/L (0.5-2.2) 07/14/24 02:12 Calcium 8.5 mg/dL (8.5-10.5) 07/14/24 02:12 Total Bilirubin 0.7 mg/dL (0.15-1.2) 07/14/24 02:12 AST 36 U/L (0-40) 07/14/24 02:12 ALT 19 U/L (0-41) 07/14/24 02:12 Alkaline Phosphatase 114 U/L (40-130) 07/14/24 02:12 NT-Pro-B Natriuret Pep 4624 pg/mL (0-125) H 07/14/24 02:12 Total Protein 6.6 g/dL (6.6-8.7) 07/14/24 02:12 Albumin 3.3 g/dL (3.5-5.2) L 07/14/24 02:12 Globulin 3.3 g/dL (1.3-4.6) 07/14/24 02:12 Ethyl Alcohol < 10 mg/dL (0-10) 07/14/24 02:12 XR interpretation done by ED provider, pending radiology final review Discharge Plan Discharge Condition: Stable Prescriptions: No Action (DME) motorized electric scooter See Rx Instructions .Route .MEDSUPPLY Qty: 1 0RF Rx Instructions: As directed (DME) pulse oxymeter See Rx Instructions .Route .MEDSUPPLY Qty: 1 0RF Rx Instructions: As directed guaifenesin [Mucinex] 1,200 mg tablet extended release 12hr 1,200 mg PO BID Qty: 60 0RF Eliquis 5 mg tablet 5 mg PO BID Qty: 180 1RF potassium chloride 10 mEq tablet extended release 20 meq PO DAILY Qty: 180 1RF mirabegron 25 mg tablet extended release 24 hr 25 mg PO DAILY Qty: 90 1RF umeclidinium-vilanterol 62.5-25 mcg/actuation blister with device 1 inh inhalation DAILY Qty: 60 1RF albuterol sulfate 2.5 mg /3 mL (0.083 %) solution for nebulization 2.5 mg inhalation Q6H PRN (Reason: shortness of breath or wheezing) Qty: 180 5RF Rx Instructions: to use while DuoNeb is unavailable ondansetron 4 mg tablet,disintegrating 4 mg PO Q8H PRN (Reason: nausea and vomiting) Qty: 60 1RF loperamide 2 mg capsule 2 mg PO Q6H PRN (Reason: loose stool) Qty: 30 0RF (DME) home fill oxygen concentrator See Rx Instructions .Route .MEDSUPPLY Qty: 1 0RF Rx Instructions: As directed, 6L NC (DME) Electric wheelchair See Rx Instructions .Route .MEDSUPPLY Qty: 1 0RF Rx Instructions: As directed ipratropium-albuterol 0.5 mg-3 mg(2.5 mg base)/3 mL solution for nebulization 3 ml inhalation Q6H PRN (Reason: shortness of breath or wheezing) 30 Days Qty: 180 3RF tamsulosin 0.4 mg capsule 0.4 mg PO DAILY bumetanide 1 mg tablet 1 mg PO BID albuterol sulfate 90 mcg/actuation HFA aerosol inhaler 2 puff INHALATION Q6H PRN (Reason: Shortness Of Breath) bupropion HCl 150 mg tablet extended release 24 hr 150 mg PO QAM amiodarone 400 mg tablet 400 mg PO DAILY 30 Days Qty: 30 5RF amoxicillin-pot clavulanate 875-125 mg tablet 1 tab PO BID Qty: 10 0RF Referrals: Sloan Arias MD [Primary Care Provider] - Coding Level of Care Code ED Relationship Counselor for Emily Talbot
--- NOTE | 2024-07-14 04:14 | P.HP_ITS ---
Providers/Chief Complaint 2 Primary Care Provider: Sloan Arias MD Chief Complaint: leg sores, sob History of Present Illness Gareth Pickering is a 63 year old male with a past medical history of COPD, current smoker, hypertension, atrial fibrillation on Eliquis, CHF, chronically on 6 L, who was dropped off by family at the ER due to shortness of breath.Patient was initially very non cooperative and combtive however later calmed down to allow interventions. 02 sat upon arrival was 70%, BP 68/48, which is improved to 113/80mmhg without directed intevention. ABG showing hypercapneic hypoxic resp failure. Review of Systems 2 General: Reports: ROS unobtainable due to medical condition and ROS unobtainable due to mental status Medications/Allergies Home Medications Medication Instructions Recorded Confirmed Last Taken Type home fill oxygen concentrator #1 ea 04/19/23 06/04/24 Unknown Rx motorized electric scooter #1 ea 04/26/23 06/04/24 Unknown Rx pulse oxymeter #1 ea 04/26/23 06/04/24 Unknown Rx Electric wheelchair #1 ea 05/04/23 06/04/24 Unknown Rx ipratropium 0.5 mg-albuterol 3 mg 3 ml inhalation Q6H PRN shortness 11/21/23 06/04/24 Unknown Rx (2.5 mg base)/3 mL nebulization of breath or wheezing 30 days #180 soln mL guaifenesin 1,200 mg tablet, 1,200 mg PO BID #60 tabs 03/14/24 06/04/24 Unknown Rx extended release 12 hr (Mucinex) albuterol sulfate 2.5 mg/3 mL 2.5 mg (3 mL) inhalation Q6H PRN 04/27/24 06/04/24 Unknown Rx (0.083 %) solution for nebulization shortness of breath or wheezing #180 mL apixaban 5 mg tablet (Eliquis) 5 mg PO BID #180 tabs 04/27/24 06/04/24 Unknown Rx loperamide 2 mg capsule 2 mg PO Q6H PRN loose stool #30 04/27/24 06/04/24 Unknown Rx caps mirabegron 25 mg tablet,extended 25 mg PO DAILY #90 tabs 04/27/24 06/04/24 Unknown Rx release 24 hr ondansetron 4 mg disintegrating 4 mg PO Q8H PRN nausea and 04/27/24 06/04/24 Unknown Rx tablet vomiting #60 tabs potassium chloride 10 mEq 20 meq (2 x 10 mEq) PO DAILY #180 04/27/24 06/04/24 Unknown Rx tablet,extended release tabs umeclidinium 62.5 mcg-vilanterol 1 inh inhalation DAILY #60 ea 04/27/24 06/04/24 Unknown Rx 25 mcg/actuation powdr for inhalation albuterol sulfate 90 mcg/actuation 2 puff inhalation Q6H PRN 06/04/24 06/04/24 Unknown History aerosol inhaler Shortness Of Breath bumetanide 1 mg tablet 1 mg PO BID 06/04/24 06/04/24 Unknown History bupropion HCl 150 mg 24 hr tablet, 150 mg PO QAM 06/04/24 06/04/24 Unknown History extended release tamsulosin 0.4 mg capsule 0.4 mg PO DAILY 06/04/24 06/04/24 Unknown History amiodarone 400 mg tablet 400 mg PO DAILY 1 month #30 tabs 06/06/24 Unknown Rx amoxicillin 875 mg-potassium 1 tab PO BID #10 tabs 06/06/24 Unknown Rx clavulanate 125 mg tablet Allergies Allergy/AdvReac Type Severity Reaction Status Date / Time amiodarone AdvReac Intermediate ADR-Gastrointestinal Verified 07/14/24 00:55 Upset PFSH Acute 2 PFSH: Medical History Hyperkalemia Acute hyperkalemia Oxygen dependent Non-compliance Substance abuse Moderate tobacco use disorder Bladder incontinence Lower extremity edema End stage COPD Smoker Congestive heart failure Tobacco use disorder Heart failure with mildly reduced ejection fraction (HFmrEF) Right heart failure with reduced right ventricular function Rib deformity Acute and chronic respiratory failure with hypoxia Atrial fibrillation with RVR Acute exacerbation of chronic obstructive airways disease Hyperlipidemia Atrial fibrillation COPD (chronic obstructive pulmonary disease) Surgical History History of colon surgery Family History Other CAD (coronary artery disease) Hypertension Lung disease Denies family history of Diabetes Clotting disorder Dementia Hyperlipidemia Psychiatric illness Chronic kidney disease (CKD) Anesthesia complication Bleeding disorder Cancer Stroke Social History Smoking and tobacco/nicotine status: current every day tobacco/nicotine user cigarettes Packs smoked per day: 0.5 Alcohol intake: former Substance/Drug Use: never Lives independently: Yes Current occupational status: disabled Current gender identity: Male Special jeri needs: No Agree to transfusion: Yes Vitals/I&O/Wt Last Vital Signs Temp 96.9 F L 07/14/24 00:51 Pulse 96 07/14/24 03:34 Resp 16 07/14/24 03:34 BP 108/75 07/14/24 03:34 Pulse Ox 90 07/14/24 03:34 O2 Del Method Nasal Cannula 07/14/24 03:34 O2 Flow Rate 6 07/14/24 03:34 Weight last 48 hrs Weight 95.254 kg Physical Exam 2 Narrative: General: No acute distress, AO x2 HEENT: PERRLA, pupils bilaterally equal and reactive, pallors not present Chest: scattered wheezing and crackles CVS: S1-S2 regular, no murmurs, no tachycardia, no gallops, no rubs Abdomen: Soft, nontender, no organomegaly, bowel sounds present Neuro: No focal deficits, no facial deformity, AO x2-3, power 5/5 in all limbs Data 07/14/24 02:12 07/14/24 02:12 Micro: Microbiology 07/14/24 02:12 Blood Culture - Preliminary Blood SPECIMEN COLLECTED ABG Interpretation 1: 07/14/24 02:15 ABG pH 7.25 L ABG pCO2 68.0 H* ABG pO2 60.3 L ABG HCO3 30.0 H ABG Base Excess 0.8 A&P Assessment and plan (1) Right heart failure with reduced right ventricular function: (2) Acute on chronic respiratory failure with hypoxia and hypercapnia: (3) COPD exacerbation: Plan Acute on chronic hypoxic hypercapneic respiratory failure ? Likely multifactorial related to acute on chronic diastolic CHF exacerbation, COPD exacerbation, pulmonary hypertension -starrt methylprednisone 40mg iv q8h -schedule nebulization with duoneb and budesonide -start BIpap ventilation given hypercapneic resp acidosis repeat ABG in one hour after Bipap - precedex gtt to be able to tolerate the Bipap - Ordered respiratory viral panel ? Has received 80 mg IV push Lasix ? continue with lasix 40 mg IV every 12 hours -Check EKG and trop series -CXR without consolidation Confusion - likely encephalopathy related to hypercapnea A-fib -Currently rate controlled ? continue amiodarone 400mg po daily ? Continue Eliquis for a/c DVT ppx: Eliquis Full code Attestations 2 Medical Necessity Statement*: > 2 midnight stay is anticipated for acute on chronic CHF and COPD exacerbation, will need BIpap ventilation, iv steroids and iv diuresis Coding Level of Care Code Acute Code for Chg Fwd High MDM includes number and complexity of problems actively addressed during encounter, amount and/or complexity of data reviewed/ordered and described risk of complication, morbidity or mortality of management as documented Diagnoses Right heart failure with reduced right ventricular function I50.810 Acute on chronic respiratory failure with hypoxia and hypercapnia J96.21; J96.22 COPD exacerbation J44.1
--- NOTE | 2024-07-14 04:25 | CTR_ITS ---
PROCEDURE INFORMATION: Exam: CT Chest Without Contrast; Diagnostic Exam date and time: 07/14/2024 5:22 AM Age: 63 years old Clinical indication: Shortness of breath and other: cardiomegaly; Prior surgery; Costal fixation; Patient SOB with hypoxia. History of chf. ; Additional info: R/O pericardial effusion TECHNIQUE: Imaging protocol: Diagnostic computed tomography of the chest without contrast. Radiation optimization: All CT scans at this facility use at least one of these dose optimization techniques: automated exposure control; mA and/or kV adjustment per patient size (includes targeted exams where dose is matched to clinical indication); or iterative reconstruction. COMPARISON: [place] [id number] 02/16/2024 9:18 PM RADIATION DOSE METRICS: Total DLP (mGy-cm): 480.43 FINDINGS: Tubes, catheters and devices: There are metallic fixation devices along the left 3rd, 4th, 5th ribs. Multiple old/healed left rib fracture sites. Lungs: There are emphysematous changes in the lungs. Bilateral lung scarring. Pleural spaces: Small right pleural effusion with adjacent compressive atelectasis and/or pneumonia. Heart: Severe cardiomegaly. Small pericardial effusion. Coronary arteries: No coronary artery calcifications. Lymph nodes: Unremarkable. No enlarged lymph nodes. Vasculature: Unremarkable. No aortic aneurysm. Bones/joints: See Tubes, catheters and devices finding. Soft tissues: There is edema in the soft tissues. CT/CT chest wo con [id number] IMPRESSION: 1. Small right pleural effusion with adjacent compressive atelectasis and/or pneumonia. In combination with severe cardiomegaly, findings are consistent with congestive heart failure. 2. There are emphysematous changes in the lungs. COMMENTS: The presence of pulmonary emphysema on CT is an independent risk factor for lung cancer. In the absence of a history or active diagnosis of lung cancer, it is recommended that this patient with emphysema be evaluated for enrollment in a low dose CT lung cancer screening program.
--- NOTE | 2024-07-14 04:30 | PC.NURSE ---
to room to assess pt. pt resting with eyes closed. pt spoken to in loud voice and will not arouse. pt sternal rubbed to assess LOC. pt will not open eyes but will grunt. Other staff and MD to room to aide in care of pt. IV established under implied constent. pt with decreased LOC throughout procedure. pt florence then placed due to pt decreased LOC and the need to give diuretic. pt only grunting during procedure.
[2024-07-14] MEDS: methylPREDNISolone sod succ 125 mg/2 mL INJ IVP ×2 (04:47→22:50)
[2024-07-14] MEDS: FUROsemide 10 mg/mL SDV 10mL 80 MG IVP (04:47)
[2024-07-14 04:55] LABS: Bilirubin Urine Negative (Negative); Blood Urine Negative (Negative); Glucose Urine UA Negative (Normal); Ketones Urine Negative (Negative); Leukocyte Esterase Urine Trace (Negative); Nitrate Urine Negative (Negative); Protein Urine 3+ (Negative); Specific Gravity, Urine 1.013 (1.005-1.030); Urine Appearance Clear (CLEAR); Urine Color Yellow (Yellow); pH Urine 5.5 (5-7)
[2024-07-14 05:00] LABS: Add Urine Microscopic? YES; Bacteria Urine None Seen /hpf; Squamous Epithelial Cell Urine 0-5 /hpf (0-5)
[2024-07-14] MEDS: ipratropium-albuterol 3 mL Neb INHALATION ×8 (05:00→19:43)
[2024-07-14 05:05] LABS: Procalcitonin 0.14 ng/mL (0-0.5); T3 Free 2.3 PG/ML (2.0-4.4)
--- NOTE | 2024-07-14 05:32 | PC.NURSE ---
pt back from CT.
[2024-07-14 05:38] LABS: Lactic Acid level (Lactate) 1.2 mmol/L (0.5-2.2)
[2024-07-14 05:39] LABS: Covid PCR NEGATIVE (Negative); Influenza A NEGATIVE (Negative); Influenza B NEGATIVE (Negative); Respiratory Syncytial Virus Ce NEGATIVE (Negative)
[2024-07-14 06:34] LABS: Amphetamines Screen Urine Positive (Negative); Barbiturates Screen Urine Negative (Negative); Benzodiazepines Screen Urine Negative (Negative); Cocaine Screen Urine Negative (Negative); Opiate Screen Urine Negative (Negative); PCP Screen Urine Negative (Negative); THC Screen Urine Negative (Negative)
[2024-07-14 07:01] LABS: Troponin(5th) Baseline 45 ng/L (0-15)
[2024-07-14 07:20] LABS: Troponin 5 2HR 45.01 ng/L (0-15); Troponin 5 2HR Delta 0.01 ABS# (0-10)
--- NOTE | 2024-07-14 07:50 | ECG_ITS ---
[employer] Test Date: 2024-07-16 Pat Name: Graeth Pickering Department: Room: [facility] Gender: Male District Associate Judge: : [id number] Requested By: Leesa Harvey Order Number: [id number] Reading MD: SURY HEBERT Measurements Intervals [place] Rate: 111 P: 0 ND: 0 QRS: 0 QRSD: 120 T: 58 QT: 352 QTc: 479 Interpretive Statements ATRIAL FIBRILLATION WITH RAPID VENTRICULAR RESPONSE RIGHT BUNDLE BRANCH BLOCK [120+ ms QRS DURATION, UPRIGHT V1, 40+ ms S IN I/aVL/V4/V5/V6] POSSIBLE ANTERIOR MYOCARDIAL INFARCTION , OF INDETERMINATE AGE [30 ms Q WAVE IN V3/V4, OR R < 0.2 mV IN V4] Compared to ECG 07/14/2024 10:08:59 No significant changes Electronically Signed On 07-17-2024 21:20:37 CDT by SURY HEBERT [email or web address]
[2024-07-14] MEDS: budesonide 0.5 mg/2 mL Neb INHALATION ×2 (07:51→19:43)
[2024-07-14] MEDS: dexmedeTOMIDine 0.9 % NaCL 400 MCG/100 ML PREMIX IV (08:19)
--- NOTE | 2024-07-14 10:08 | ECG_ITS ---
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1960 Requested By: Leesa Harvey Order Number: [id number] Reading MD: SURY HEBERT Measurements Intervals [place] Rate: 73 P: 0 MO: 0 QRS: 85 QRSD: 122 T: 48 QT: 381 QTc: 421 Interpretive Statements ATRIAL FIBRILLATION RIGHT BUNDLE BRANCH BLOCK [120+ ms QRS DURATION, UPRIGHT V1, 40+ ms S IN I/aVL/V4/V5/V6] ANTERIOR MYOCARDIAL INFARCTION , PROBABLY RECENT [40+ ms Q WAVE AND/OR ST/T ABNORMALITY IN V3/V4] ACUTE DE Compared to ECG 07/14/2024 01:06:40 No significant changes Electronically Signed On 07-14-2024 18:14:25 CDT by SURY HEBERT [id number]
--- NOTE | 2024-07-14 10:29 | PC.NURSE ---
when awaken pt becomes agitated and verbal , noncoperative at this time
[2024-07-14] MEDS: amiodarone 200 mg Tablet 400 MG PO (10:56)
[2024-07-14] MEDS: pantoprazole DR 40 mg Tablet PO (10:56)
[2024-07-14] MEDS: tamsulosin 0.4 mg Capsule PO (10:56)
[2024-07-14] MEDS: apixaban 5 mg Tablet PO ×2 (10:57→17:52)
[2024-07-14 11:31] LABS: Troponin 5 6HR 41.58 ng/L (0-15); Troponin 5 6HR Delta -3.42 ng/L (0-12)
[2024-07-14 11:41] LABS: ABG PH Result 7.28 (7.35-7.45); Alveolar-Arterial Oxygen Gradi 27.6 mmHg (5-10); Arterial Blood Gas Hematocrit 41.6 % (42-52); Base Excess ABG 1.6 mmol/L (-2.0-2.0); Blood Gas Allen Test Pos; Blood Gas Operator Identificat BROMA; Blood Gas Sample Site Radial, left; Blood Gas Sample Type Arterial; Carboxyhemoglobin 1.7 %THgb (0.4-20.1); HCO3 ABG 30.1 mmol/L (22-26); HGB O2 Sat 92.4 % (95-100); Ionized Calcium Level - ABG 1.3 mmol/L (1.1-1.4); Methemoglobin 0.2 % (0.4-1.5); Oxygen Device BIPAP; Oxygen Saturation ABG 94.2; PO2 ABG 72.9 mmHg (80.0-100.0); PO2 FiO2 Ratio Arterial Blood 145; Potassium Level - ABG 4.8 mmol/L (3.5-5.0); Total Hemoglobin 13.6 g/dL (14-18)
[2024-07-14] MEDS: methylPREDNISolone sod succ 40 mg/mL INJ IVP ×2 (11:41→20:35)
[2024-07-14] MEDS: cefTRIAXone 1,000 mg SDV 1000 MG IVP (11:41)
[2024-07-14] MEDS: water for injection-sterile 10 ML 1000 ML (11:43)
[2024-07-14 11:44] LABS: ABG PCO2 64.7 mmHg (35-45)
[2024-07-14] MEDS: sodium chloride 0.9% 500 ML 999 ML IV (13:36)
--- NOTE | 2024-07-14 15:11 | W.PM.EVENTAC ---
Event Note Event Note: Admitted earlier today morning. H&P and labs appreciated. No real history of present unfortunately as patient is somnolent. Tried calling multiple numbers in the chart, either nobody is picking up or phone going [employer] to voicemail. On examination patient seeing in ICU on Precedex at 0.3, BiPAP ventilation 14/8, 50% FiO2 saturating more than 90%. Patient is resting comfortably, wakes up to physical stimulus. Prior to being on Precedex patient was agitated and belligerent as per nursing staff. Heart rate running in high 50s to low 60s. Blood pressure of 90 systolic. Urine output of around 1600 cc since admission. Minimal oral intake as patient has been somnolent. Plan: Patient seems clinically do hide for now. Creatinine at 1.3. Higher than his baseline. Patient has mild JEAN. For now as blood pressures are soft will give 500 cc IV fluid bolus. Depending on blood pressure will plan for further IV fluids. Appreciate CT chest. Appreciate old culture history. History of pneumonia with haemophilus influenza. Check bacterial antigen, MRSA swab. Empirically start patient on IV ceftriaxone and azithromycin for now. Nebulization treatment every 4 hourly with DuoNeb, Pulmicort twice daily. Continue with Solu-Medrol 40 mg every 8 hourly. ABG was checked while being on BiPAP. Showed persistent respiratory acidosis with pH of 7.28 with pCO2 of 64. pO2 improving. Plan to switch over to AVAPS mode. Repeat ABG in 4 to 5 hours. Wean Precedex off depending on mentation and heart rate. Decrease amiodarone to 200 mg oral daily. Appreciate echocardiogram from May showing moderate mitral valve prolapse with moderate TR with a PASP of 39 mmHg. Other Coding Information Prolonged care (total time indicated above or notated here) Additional care because of hypotension, poor mentation along with setting of BiPAP in due to persistent respiratory acidosis with hypercapnia
[2024-07-14] MEDS: sodium chloride 0.9% 1,000 ML 50 ML IV (15:19)
[2024-07-14] MEDS: azithromycin 500 MG in sodium chloride 0.9% 250 ML 250 MG IV (15:19)
--- NOTE | 2024-07-14 15:44 | PC.NURSE ---
fluid bolus given for low blood pressure, upper partial removed as falling down and obstructing per bipap placed in denture cup at the bedside
[2024-07-14 15:50] LABS: Blood Urea Nitrogen 26 mg/dL (8-23); Calcium 9.2 mg/dL (8.5-10.5); Carbon Dioxide 28 mmol/L (22-29); Chloride 104 mmol/L (98-107); Creatinine Clr Calc Pharmacy 58.0369; Glucose 132 mg/dL (65-115); Osmolality Calculated 297 mOsm/kg (285-295); Sodium 140 mmol/L (136-145)
[2024-07-14 15:52] LABS: Anion Gap 13.6 (5-19); Potassium 5.6 mmol/L (3.5-5.1)
--- NOTE | 2024-07-14 16:41 | PC.NURSE ---
verified to give d10 with insulin iv per dr Funes
[2024-07-14] MEDS: dextrose 10% 250 ML 1000 ML IV (16:51)
[2024-07-14] MEDS: insulin regular-human 10 UNIT in SYRINGE 1 EACH 1000 UNIT IVP (16:51)
[2024-07-14] MEDS: sodium chloride 0.9% 500 ML IV (16:53)
[2024-07-14 18:25] LABS: ABG PH Result 7.21 (7.35-7.45); Arterial Blood Gas Hematocrit 42.7 % (42-52); Base Excess ABG -1.1 mmol/L (-2.0-2.0); Blood Gas Allen Test Pos; Blood Gas Operator Identificat CAK; Blood Gas Sample Site Radial, left; Blood Gas Sample Type Arterial; Carboxyhemoglobin 1.3 %THgb (0.4-20.1); HCO3 ABG 28.7 mmol/L (22-26); HGB O2 Sat 89.1 % (95-100); Ionized Calcium Level - ABG 1.3 mmol/L (1.1-1.4); Methemoglobin 0.9 % (0.4-1.5); Oxygen Device BIPAP; Oxygen Saturation ABG 91.1; PO2 ABG 67.9 mmHg (80.0-100.0); PO2 FiO2 Ratio Arterial Blood 135; Potassium Level - ABG 4.6 mmol/L (3.5-5.0); Total Hemoglobin 13.9 g/dL (14-18)
[2024-07-14] MEDS: norepinephrine 4 MG/250 ML BAG 7.5 MG IV (18:43)
[2024-07-14] MEDS: sodium chloride 0.9% 1,000 ML 999 ML IV (18:45)
--- NOTE | 2024-07-14 19:00 | PC.NURSE ---
Urinary Catheter: Knight catheter present on arrival to shift @1900, placed on dayshift, exact insertion time unknown.
--- NOTE | 2024-07-14 19:00 | PM.CCNAC ---
Critical Care Event Note During the day patient has remained on BiPAP, somnolent even off Precedex. He was transitioned over to AVAPS mode as per last ABG around 1 PM. Repeat ABG shows worsening respiratory acidosis with pH of 7.21 and pCO2 of 70s. Blood pressures have remained borderline low mean arterial pressures have maintained between 60-65 after getting fluid boluses. Because of the above decision was made to intubate patient. Plan: 1 L IV fluid bolus followed by Levophed drip to maintain mean artery pressure over 65. Plan to intubate. Tried calling numbers of patient family Thomas and friend Marcelo with numbers on the chart and again was not able to get in touch with them. ABG 1 hour after intubation with ventilator setting of 500 of tidal volume, FiO2 of 80%, PEEP of 8 continue to show worsening of respiratory acidosis with pH of 7.18 and pCO2 of 74. Further changes in ventilator settings were done with increasing the rate from 14-18 and decreasing FiO2 from 80% to 50%. Plan for repeat ABG in 3 hours. Cheetah examination. Patient does have history of congestive heart failure given mitral valve prolapse and right heart failure. Given concerns for shock for now we will continue with IV hydration. Continue with Levophed keeping mean arterial pressure over 65. The high probability of a clinically significant, sudden or life threatening deterioration of the patient's [] system(s) required my full and direct attention, intervention and personal management. The critical care time is as shown. This time is in addition to time spent performing any reported procedures but includes the following: [x] Data and vital sign review and interpretation [x] Patient assessment, examination and intervention [x] Documentation [x] Medication orders and management Critical Care Time Code activated: No Critical Care Time (min): 60 Additional information about critical care time: The high probability of a clinically significant, sudden or life threatening deterioration of the patient's [pulmonary, cardiac] system(s) required my full and direct attention, intervention and personal management. The critical care time is as shown. This time is in addition to time spent performing any reported procedures but includes the following: [x] Data and vital sign review and interpretation [x] Patient assessment, examination and intervention [x] Documentation [x] Medication orders and management Procedures Central Line Placement^ Right Femoral: Time out performed: Yes Patient placed on monitor/pulse ox: Yes prep: mask, gown and gloves Central line prep: Chlorhexidine scrub Local anesthesia used: lidocaine 1% Ultrasound used for placement: Yes Central line lumen inserted: triple Post procedure: sutured in place, good blood return, all ports aspirated, flushed, capped and sterile dressing applied Post procedure x-ray: other (Not needed) Patient tolerated procedure: well Complications: none Coding Level of Care Code Critical Care Other Coding Information This patient has a high probability of clinically significant, sudden or life threatening deterioration of the patient's (neurological/pulmonary/cardiac/renal/ID/endocrine) systems required my full, direct attention, the highest level of physician preparedness for urgent intervention and personal management. I managed/supervised life or organ supporting interventions that required frequent physician assessment. I devoted my full attention in the ICU to the direct care of this patient for the period of time indicated above. Time I spent with family or surrogate(s) is included only if the patient was incapable of providing necessary information or participating in decision making. This time includes the following services provided: Telemetry review Mechanical Ventilation Hemodynamic interpretation, assessment and management Review and interpretation of CXR Review and interpretation of lab values Review and interpretation of microbiologic data and culture results Review of medications and administration Review and interpretation of Nutrition requirements and management Discussion of management with other consultants and services Clinical update to family members Time Spent (min) 80
--- NOTE | 2024-07-14 19:05 | XRR_ITS ---
PROCEDURE INFORMATION: Exam: XR Chest Exam date and time: 07/14/2024 7:20 PM Age: 63 years old Clinical indication: Device placement; Ett placement (vent status); Prior surgery; Surgery date: 6+ months; Surgery type: Costal fixation; Patient HX: Ett & og placement TECHNIQUE: Imaging protocol: Radiologic exam of the chest. Views: 1 view. COMPARISON: CT chest wo con [id number] 07/14/2024 5:22 AM FINDINGS: Lungs: No focal consolidation. Pleural spaces: No evidence of pneumothorax. No evidence of pleural effusion. Heart/Mediastinum: Endotracheal tube in place with tip approximately 4.3 cm from the cem. Enteric tube in place with tip in the region of the gastric body and side hole just above the GE junction. Recommend advancing 3 cm and repeating an abdominal radiograph. Cardiomegaly noted. Bones/joints: There has been prior fixation of the left 3rd, 4th and 5th ribs. XR/XR chest 1V portable [id number] IMPRESSION: 1. Endotracheal tube in place with tip approximately 4.3 cm from the cem. 2. Enteric tube in place with tip in the region of the gastric body and side hole just above the GE junction. Recommend advancing 3 cm and repeating an abdominal radiograph. 3. Cardiomegaly.
[2024-07-14 19:06] LABS: MRSA PCR OZH (swab) NOT DETECTED (Negative)
[2024-07-14] MEDS: etomidate 2 mg/mL INJ SDV 10 mL 20 MG IVP (19:13)
[2024-07-14] MEDS: succinylcholine 20 mg/mL SDV 10mL 100 MG IVP (19:14)
--- NOTE | 2024-07-14 19:15 | PC.NURSE ---
Intubation: Dr. Oconnor intubated @1915, positive color change and chest x-ray obtained. See MAR for medications given.
--- NOTE | 2024-07-14 19:30 | PC.NURSE ---
OG: OG placed @1920 07/14/24, x-ray obtained.
[2024-07-14] MEDS: propofol 1,000 MG/100 ML INJ 11.1 MG IV (19:40)
[2024-07-14] MEDS: fentaNYL 1,000 MCG/100 ML BAG 5 MCG IV (19:46)
[2024-07-14] MEDS: sodium chloride 0.9% 1,000 ML 100 ML IV (20:01)
--- NOTE | 2024-07-14 20:41 | PC.NURSE ---
IV Infiltration: L. AC IV infiltrated w/ approximately 50ml of NS. All other drips running into R. UA IV at time of infiltration. Dr. Lozano notified of poor peripheral access and is aware of multiple drips running. New order to attempt ultrasound IV access. NS stopped, delay in starting until additional access obtained, Dr. Lozano aware.
[2024-07-14 20:56] LABS: Arterial Blood Gas Hematocrit 42.2 % (42-52); Base Excess ABG -2.7 mmol/L (-2.0-2.0); Blood Gas Allen Test Neg; Blood Gas Operator Identificat JDB; Blood Gas Sample Site Brachial, right; Blood Gas Sample Type Arterial; HCO3 ABG 27.6 mmol/L (22-26); Oxygen Device VENT; PO2 ABG 84.2 mmHg (80.0-100.0); PO2 FiO2 Ratio Arterial Blood 105
[2024-07-14 20:58] LABS: ABG PCO2 74.9 mmHg (35-45); ABG PH Result 7.18 (7.35-7.45)
--- NOTE | 2024-07-14 21:28 | PC.NURSE ---
PLR/Cheetah: Dr. Lozano called unit @2104, new order for stat CMP, Lactic, and PLR. PLR obtained @2119 and results sent to Dr. Lozano @2124. Change in SVI=5.8%
--- NOTE | 2024-07-14 22:29 | PC.NURSE ---
Poor Peripheral Access: Notified Dr. Ellis @0187 of poor peripheral access, unable to obtain labs, unable to run all ordered medication d/t lack of access, Levophed rate, and 2 IV infiltrates in 3 hours. Multiple attempts of for ultrasound guided IV access and multiple lab sticks.
[2024-07-14 23:08] LABS: Lactate (Lactic Acid level) 2.2 mmol/L (0.5-2.2)
[2024-07-14 23:18] LABS: Alanine Aminotransferase 18 U/L (0-41); Alkaline Phosphatase 95 U/L (40-130); Blood Urea Nitrogen 31 mg/dL (8-23); Calcium 8.2 mg/dL (8.5-10.5); Carbon Dioxide 24 mmol/L (22-29); Chloride 105 mmol/L (98-107); Creatinine Clr Calc Pharmacy 54.4096; Globulin 3.7 g/dL (1.3-4.6); Glomerular Filtration Rate 43.6 mL/min (90-130); Glucose 198 mg/dL (65-115); Osmolality Calculated 296 mOsm/kg (285-295); Sodium 137 mmol/L (136-145); Thyroid Stimulating Hormone 1.76 uIU/mL (0.27-4.20); Total Bilirubin 0.7 mg/dL (0.15-1.2); Total Protein 6.7 g/dL (6.6-8.7)
[2024-07-14 23:25] LABS: Anion Gap 13.9 (5-19); Magnesium 1.6 mg/dL (1.7-2.3); Potassium 5.9 mmol/L (3.5-5.1)
[2024-07-14 23:26] LABS: Aspartate Amino Transferase 5 U/L (0-40)
[2024-07-15] VITALS (78 sets, daily range): BP systolic 75–111; BP diastolic 49–79; PULSE 82–125; RESP 18–21; TEMP 36.8–37.2; O2SAT 89–96
[2024-07-15] MEDS: norepinephrine 4 MG/250 ML BAG 52.5 MG IV (00:05)
[2024-07-15 00:09] LABS: ABG PH Result 7.23 (7.35-7.45); Arterial Blood Gas Hematocrit 41.8 % (42-52); Base Excess ABG -0.7 mmol/L (-2.0-2.0); Blood Gas Operator Identificat JDB; Blood Gas Sample Site Not specified; Blood Gas Sample Type Venous; Carboxyhemoglobin 1.2 %THgb (0.4-20.1); HCO3 ABG 28.5 mmol/L (22-26); HGB O2 Sat 64.8 % (95-100); Ionized Calcium Level - ABG 1.2 mmol/L (1.1-1.4); Oxygen Device VENT; Oxygen Saturation ABG 66.2; PO2 ABG 38.3 mmHg (80.0-100.0); PO2 FiO2 Ratio Arterial Blood 76; Potassium Level - ABG 5.2 mmol/L (3.5-5.0); Total Hemoglobin 13.7 g/dL (14-18)
[2024-07-15 00:11] LABS: ABG PCO2 67.7 mmHg (35-45)
[2024-07-15] MEDS: ipratropium-albuterol 3 mL Neb INHALATION ×6 (00:24→19:57)
[2024-07-15] MEDS: magnesium sulfate premix 1 GM/100 ML PIGGYBACK IV (00:38)
[2024-07-15] MEDS: propofol 1,000 MG/100 ML INJ 16.66 MG IV (00:50)
[2024-07-15] MEDS: piperacillin-tazobactam 3.375 GM in sodium chloride 0.9% (plus) 50 ML IV ×3 (01:13→16:20)
--- NOTE | 2024-07-15 01:33 | PC.NURSE ---
K+ 5.9 Dr. Harvey notified of elevated potassium at pt bedside at approximately midnight, Dr. Ellis reported we will give meds after the central line is placed. New order for 10 units IVP Insulin and 125ml D10 BOLUS @0127. See 'MAR' for administration.
[2024-07-15 02:34] LABS: Glucose Point of Care 194 mg/dL (70-110)
[2024-07-15] MEDS: dextrose 10% 125 ML 750 ML IV (02:36)
[2024-07-15] MEDS: insulin regular-human 10 UNIT in SYRINGE 1 EACH 999 UNIT IVP (02:38)
[2024-07-15] MEDS: methylPREDNISolone sod succ 40 mg/mL INJ IVP ×4 (03:49→21:11)
[2024-07-15 05:26] LABS: ABG PCO2 57.5 mmHg (35-45); ABG PH Result 7.27 (7.35-7.45); Arterial Blood Gas Hematocrit 40.1 % (42-52); Base Excess ABG -1.4 mmol/L (-2.0-2.0); Blood Gas Operator Identificat JDB; Blood Gas Sample Site Brachial, right; Blood Gas Sample Type Arterial; Carboxyhemoglobin 1.1 %THgb (0.4-20.1); HCO3 ABG 26.5 mmol/L (22-26); HGB O2 Sat 87.3 % (95-100); Ionized Calcium Level - ABG 1.2 mmol/L (1.1-1.4); Oxygen Device VENT; Oxygen Saturation ABG 89.2; PO2 ABG 60.1 mmHg (80.0-100.0); PO2 FiO2 Ratio Arterial Blood 171; Potassium Level - ABG 4.3 mmol/L (3.5-5.0); Total Hemoglobin 13.1 g/dL (14-18)
[2024-07-15 05:37] LABS: Hematocrit 43.3 % (37-53); Lymphocytes # 0.3 10^3/uL (0.8-4.8); Lymphocytes % 2.9 %; Mean Corpuscular HGB Conc 29.3 g/dL (30-55); Mean Corpuscular Hemoglobin 27.6 pg (27-33); Mean Corpuscular Volume 94.1 fl (82-101); Mean Platelet Volume 9.6 fL (7.4-10.4); Monocytes # 0.2 10^3/uL (0.2-0.9); Monocytes % 1.8 %; Neutrophils # 8.77 10^3/uL (1.8-7.7); Nucleated Red Blood Cells % 0 %; Platelet Count 310 10^3/cmm (157-399); Red Cell Distribution Width 15.5 % (12.1-15.1); White Blood Count 9.24 10^3/uL (3.29-11.43)
--- NOTE | 2024-07-15 06:00 | XRR_ITS ---
PROCEDURE INFORMATION: Exam: XR Chest Exam date and time: 07/15/2024 6:16 AM Age: 63 years old Clinical indication: Dyspnea and shortness of breath; Additional info: Intubated TECHNIQUE: Imaging protocol: Radiologic exam of the chest. Views: 1 view. COMPARISON: CR (CHEST, ) 07/14/2024 7:20 PM FINDINGS: Tubes, catheters and devices: An endotracheal tube is present with the tip about 4.5 cm above the cem. A nasogastric tube projects on the stomach. Lungs: Unremarkable. No consolidation. Pleural spaces: Unremarkable. No pleural effusion. No pneumothorax. Heart/Mediastinum: The cardiac silhouette is enlarged but unchanged. Bones/joints: There is surgical fusion of old left 3rd 4th and 5th rib fractures. XR/XR chest 1V portable [id number] IMPRESSION: Stable cardiomegaly.
[2024-07-15 06:13] LABS: Alanine Aminotransferase 16 U/L (0-41); Albumin Level 2.8 g/dL (3.5-5.2); Alkaline Phosphatase 89 U/L (40-130); Anion Gap 13.6 (5-19); Aspartate Amino Transferase 25 U/L (0-40); Blood Urea Nitrogen 32 mg/dL (8-23); Calcium 8.3 mg/dL (8.5-10.5); Carbon Dioxide 24 mmol/L (22-29); Chloride 106 mmol/L (98-107); Creatinine Clr Calc Pharmacy 50.3905; Globulin 3.4 g/dL (1.3-4.6); Glomerular Filtration Rate 38.1 mL/min (90-130); Glucose 168 mg/dL (65-115); Magnesium 1.8 mg/dL (1.7-2.3); Osmolality Calculated 299 mOsm/kg (285-295); Potassium 4.6 mmol/L (3.5-5.1); Sodium 139 mmol/L (136-145); Total Bilirubin 0.4 mg/dL (0.15-1.2); Total Protein 6.2 g/dL (6.6-8.7)
[2024-07-15] MEDS: norepinephrine 4 MG/250 ML BAG 37.5 MG IV ×3 (06:17→19:34)
[2024-07-15] MEDS: buPROPion XL (24 HR) 150 mg Tablet PO (06:30)
[2024-07-15] MEDS: fentaNYL 1,000 MCG/100 ML BAG 10 MCG IV ×2 (07:28→17:05)
[2024-07-15 07:41] LABS: T4 Total 3.7 mcg/dL (4.9-10.5)
--- NOTE | 2024-07-15 07:47 | PC.NURSE ---
evaluated pt this am responds to voice on vent at this time lungs very diminished ,urine output remains low on levophed gtt monitor pressures
[2024-07-15] MEDS: budesonide 0.5 mg/2 mL Neb INHALATION ×2 (07:52→19:57)
[2024-07-15] MEDS: tamsulosin 0.4 mg Capsule PO (08:48)
[2024-07-15] MEDS: pantoprazole DR 40 mg Tablet PO (08:48)
[2024-07-15] MEDS: apixaban 5 mg Tablet PO ×2 (08:48→17:05)
[2024-07-15] MEDS: amiodarone 200 mg Tablet PO (08:49)
[2024-07-15] MEDS: propofol 1,000 MG/100 ML INJ 13.88 MG IV ×3 (08:49→23:57)
[2024-07-15] MEDS: azithromycin 500 MG in sodium chloride 0.9% 250 ML 250 MG IV (08:49)
[2024-07-15] MEDS: sodium chloride 0.9% 1,000 ML 100 ML IV (08:50)
--- NOTE | 2024-07-15 09:52 | PC.NURSE ---
friend Blue Zhou [phone] here to visit will attempt to get in contact with son, have attempted to call but no response , Blue states he know where he lives and will stop there snd let him know
[2024-07-15 14:08] LABS: ABG PCO2 46.6 mmHg (35-45); ABG PH Result 7.37 (7.35-7.45); Alveolar-Arterial Oxygen Gradi 16.9 mmHg (5-10); Arterial Blood Gas Hematocrit 40.9 % (42-52); Base Excess ABG 1.3 mmol/L (-2.0-2.0); Blood Gas Allen Test Pos; Blood Gas Operator Identificat BROMA; Blood Gas Sample Site Brachial, right; Blood Gas Sample Type Arterial; Carboxyhemoglobin 1.1 %THgb (0.4-20.1); HCO3 ABG 27.1 mmol/L (22-26); HGB O2 Sat 92.9 % (95-100); Ionized Calcium Level - ABG 1.2 mmol/L (1.1-1.4); Oxygen Device VENT; Oxygen Saturation ABG 93.9; PO2 ABG 65.6 mmHg (80.0-100.0); PO2 FiO2 Ratio Arterial Blood 187; Potassium Level - ABG 4.4 mmol/L (3.5-5.0); Total Hemoglobin 13.4 g/dL (14-18)
[2024-07-15] MEDS: FUROsemide 10 mg/mL SDV 4mL 40 MG IVP (15:09)
--- NOTE | 2024-07-15 15:09 | PC.NURSE ---
lasix delayed until abgs done and urine output monitored, lasix given at this time
--- NOTE | 2024-07-15 15:45 | P.PN_ITS ---
Subjective 2 Subjective: Critical events of yesterday. Patient was intubated for persistent respiratory acidosis even though he was on AVAPS. After intubation multiple changes to the ventilator settings were done. Appreciate ABG today morning showing improvement in respiratory acidosis with pH improving to 7.27, pCO2 of 57, pO2 of 60 with FiO2 35%, tidal volume 500 PEEP of 8 with rate of 18. Patient is currently on Levophed of 10, propofol and fentanyl. Minimal urine output overnight but overall around 2200 in last 24 hours. Afebrile. Vitals/I&O/Wt Last Vital Signs Temp 98.8 F 07/15/24 12:00 Pulse 107 H 07/15/24 15:37 Resp 20 H 07/15/24 15:37 BP 102/71 07/15/24 14:00 Pulse Ox 93 07/15/24 15:37 O2 Del Method Mechanical Ventilation 07/15/24 15:37 O2 Flow Rate 6 07/14/24 05:05 FiO2 35 07/15/24 15:37 07/15/24 07/15/24 07/15/24 06:59 14:59 22:59 Intake Total 1604.562 / 4604.760 828.182 / 828.182 Output Total 350 / 2250 250 / 250 Balance 1254.562 / 2354.760 578.182 / 578.182 Weight last 48 hrs Weight 101.287 kg Weight 92.533 kg Weight 95.254 kg Physical Exam 2 Narrative: General: Intubated, sedated HEENT: PERRLA, pupils bilaterally equal and reactive, pallors not present Chest: Bronchial breath sounds bilateral lower lung bonilla occasional rhonchi, crackles present in right lower zone CVS: S1-S2 regular, no murmurs, no tachycardia, no gallops, no rubs Abdomen: Soft, nontender, no organomegaly, bowel sounds present Neuro: Intubated, sedated Urinary Catheter Management: Knight: Cath Placed During This Visit: yes Reason for Continuing Indwelling Catheter: Accurate Measurement of Urinary Output in Critically Ill Patients Urinary Catheter Date of Insertion: 07/14/24 Urinary Catheter Time of Insertion: 19:00 Data 07/15/24 05:20 07/15/24 05:20 Micro: Microbiology 07/14/24 19:45 Gram Stain - Final Sputum - Endotracheal Tube Aspirate 07/14/24 02:12 Blood Culture - Preliminary Blood NEGATIVE TO DATE 07/14/24 04:46 Bacterial Antigens - Final Urine Kidney A&P Assessment and plan (1) Shock: (2) Respiratory acidosis: (3) Acute on chronic respiratory failure with hypoxia and hypercapnia: (4) COPD exacerbation: (5) Right heart failure with reduced right ventricular function: (6) Acute kidney injury: (7) Amphetamine abuse: (8) Mitral valve prolapse: Plan 63-year-old with history of advanced COPD, belligerent behavior in the past, history of leaving hospital AGAINST MEDICAL ADVICE multiple times, mitral valve prolapse with diastolic heart failure presented to the ER in respiratory distress. At first patient was having belligerent behavior but later agreeable for medical management. To sedate patient was placed on Precedex drip and BiPAP ventilation. Continue to have worsening respiratory acidosis on maximum BiPAP ventilation and hence was intubated. Acute on chronic hypoxic and hypercapnic respiratory failure with respiratory acidosis: Intubated on 07/14. ABG showing respiratory acidosis. Change rate to 21/min. Repeat ABG in afternoon. Continue sedation with propofol fentanyl. No sedation vacation today. IV Solu-Medrol 40 mg Q6 hourly Ipratropium, Xopenex every 4-hour, Pulmicort twice daily. Appreciate culture history of pneumonia with haemophilus in past. MRSA swab negative. Urine Legionella and bacterial antigen negative. For now continue with IV Zosyn. Continue with azithromycin for atypical coverage. Appreciate CT chest. Follow-up blood culture, sputum culture. Concern for diastolic heart failure with right-sided heart failure and mitral valve prolapse. Appreciate last echocardiogram from 06/19. Cheetah examination showing patient not fluid responsive. Septic shock is stabilized. Stop IV fluids. Plan for Lasix 40 mg IV later in the day. Strict input output charting, daily weights. Fluid restriction up to 1500 cc. Wean Levophed keeping mean artery pressure over 65. Once acidosis improved blood pressure should also improve. Acute kidney injury: Most likely in setting of shock. Medical reconciliation done for nephrotoxic drugs. Appreciate urine lites. Monitor BMP daily. Appreciate electrolytes. A-fib with controlled rate: Continue with decreased dose of amiodarone 200 mg oral daily. Eliquis 5 mg twice daily. Social discord: Multiple phone numbers reviewed in the chart. Could not get in touch with any of the numbers yesterday as most of them were out of service or not being picked up. Spoke with patient's friend at bedside today. He brought in patient's son Thomas. Thomas is agreeable to make medical decisions for the patient. He provides us with a new number but unfortunately that number is also not working. Will consult case management. Full code N.p.o. Protonix for PUD prophylaxis Eliquis will be sufficient for DVT prophylaxis. Attestations 2 Medical Necessity Statement*: Requires further hospitalization for management of respiratory failure with hypercapnia and hypoxia, shock, acute kidney injury Critical Care Time: The high probability of a clinically significant, sudden or life threatening deterioration of the patient's [pulmonary, cardiac, renal] system(s) required my full and direct attention, intervention and personal management. The critical care time is as shown. This time is in addition to time spent performing any reported procedures but includes the following: [x] Data and vital sign review and interpretation [x] Patient assessment, examination and intervention [x] Documentation [x] Medication orders and management Critical Care Time (min): 90 Coding Level of Care Code Critical Care >/= 30 minutes Critical care time (in minutes): 90 The high probability of a clinically significant, sudden or life threatening deterioration, as referenced in this documentation, required my full and direct attention, intervention and personal management. The critical care time shown is in addition to time spent performing any reported separately billable procedures and includes the following: [x] Data and vital sign review and interpretation [x ] Patient assessment, examination and intervention [x] Medication orders and management [x] Patient/Family updates as able [x] Care Coordination and Documentation. Other Coding Information This patient has a high probability of clinically significant, sudden or life threatening deterioration of the patient's (neurological/pulmonary/cardiac/renal/ID/endocrine) systems required my full, direct attention, the highest level of physician preparedness for urgent intervention and personal management. I managed/supervised life or organ supporting interventions that required frequent physician assessment. I devoted my full attention in the ICU to the direct care of this patient for the period of time indicated above. Time I spent with family or surrogate(s) is included only if the patient was incapable of providing necessary information or participating in decision making. This time includes the following services provided: Telemetry review Mechanical Ventilation Hemodynamic interpretation, assessment and management Review and interpretation of CXR Review and interpretation of lab values Review and interpretation of microbiologic data and culture results Review of medications and administration Review and interpretation of Nutrition requirements and management Discussion of management with other consultants and services Clinical update to family members Diagnoses Shock R57.9 Respiratory acidosis E87.29 Acute on chronic respiratory failure with hypoxia and hypercapnia J96.21; J96.22 COPD exacerbation J44.1 Right heart failure with reduced right ventricular function I50.810 Acute kidney injury N17.9 Amphetamine abuse F15.10 Mitral valve prolapse I34.1
--- NOTE | 2024-07-15 15:58 | CTR_ITS ---
PROCEDURE INFORMATION: Exam: CT Abdomen And Pelvis Without Contrast Exam date and time: 07/15/2024 4:38 PM Age: 63 years old Clinical indication: Other: Shock; Prior surgery; Surgery date: 6+ months; Surgery type: Costal fixation; Colon; Additional info: Shock, please include groin as well, history of open wound to the TECHNIQUE: Imaging protocol: Computed tomography of the abdomen and pelvis without contrast. Radiation optimization: All CT scans at this facility use at least one of these dose optimization techniques: automated exposure control; mA and/or kV adjustment per patient size (includes targeted exams where dose is matched to clinical indication); or iterative reconstruction. COMPARISON: [place] [id number] 02/16/2024 9:18 PM RADIATION DOSE METRICS: Total DLP (mGy-cm): 890.03 FINDINGS: Tubes, catheters and devices: A balloon bladder catheter is present. Rectal catheter is present. Nasogastric tube tip projecting in the mid stomach. Right femoral vein central venous catheter with tip in the right common iliac vein. Lungs: Compressive atelectasis bilateral lung bases. Interlobular septal thickening in the lung bases, compatible with early interstitial pulmonary edema. Pleural spaces: Partially seen moderate bilateral pleural effusions. Heart: Severe cardiomegaly. Liver: Stable hypodense liver lesions which are too small to characterize. Consider ultrasound follow-up. Normal liver size and contour. Gallbladder and biliary ducts: The gallbladder demonstrates layering density consistent with sludge. There is no wall thickening or pericholecystic fluid to suggest cholecystitis. No radiopaque gallstones. There is no evidence of biliary ductal dilation. Pancreas: Diffuse atrophy of the pancreatic parenchyma. There is no pancreatic duct dilation. No pancreatic masses. Spleen: Normal. No splenomegaly. Adrenal glands: There is diffuse bilateral nonspecific adrenal enlargement, most likely related to acute illness. Kidneys and ureters: Normal. No hydronephrosis. Stomach and bowel: Diffusely air-filled loops of bowel in the abdomen in a nonobstructive pattern. Diffuse colonic diverticulosis. Prior right hemicolectomy without complications. No bowel thickening. Appendix: No evidence of appendicitis. Intraperitoneal space: Moderate amount of free intraperitoneal fluid. No intraperitoneal fluid collections. There is no free intraperitoneal air. Vasculature: Mild atherosclerotic calcification of the arterial vasculature. No aortic aneurysms. Engorgement of the IVC. Lymph nodes: No retroperitoneal, pelvic, or mesenteric adenopathy. Urinary bladder: Bladder is decompressed and difficult to evaluate. Small amount of intraluminal bladder gas, likely related to recent instrumentation. Circumferential urinary bladder wall thickening. Reproductive: Partially seen bilateral hydroceles. Bones/joints: Partially seen fixation screws in the left ribs. Mild multilevel degenerative changes of the spine. No acute skeletal abnormality or aggressive osseous lesion. Soft tissues: Moderate body wall edema. CT/CT abdomen pelvis wo con [id number] IMPRESSION: 1. Question cystitis versus bladder mucosal crowding due to under distension. 2. Mild bloating without definitive bowel obstruction. 3. Severe anasarca, highly suspect cardiogenic etiology.
[2024-07-16] VITALS (75 sets, daily range): BP systolic 79–119; BP diastolic 49–83; PULSE 98–129; RESP 19–29; TEMP 36.9–37.4; O2SAT 90–96; BMI 31.1
[2024-07-16] MEDS: ipratropium-albuterol 3 mL Neb INHALATION ×7 (00:05→23:48)
[2024-07-16] MEDS: piperacillin-tazobactam 3.375 GM in sodium chloride 0.9% (plus) 50 ML IV ×3 (00:18→17:24)
[2024-07-16] MEDS: chlorhexidine gluconate 4% Btl 118 mL 1 APPLIC TOPICAL (02:19)
[2024-07-16] MEDS: methylPREDNISolone sod succ 40 mg/mL INJ IVP ×4 (02:20→20:27)
[2024-07-16] MEDS: fentaNYL 1,000 MCG/100 ML BAG 10 MCG IV ×3 (02:20→19:22)
[2024-07-16 04:34] LABS: ABG PCO2 48.6 mmHg (35-45); ABG PH Result 7.42 (7.35-7.45); Alveolar-Arterial Oxygen Gradi 16.6 mmHg (5-10); Arterial Blood Gas Hematocrit 38.6 % (42-52); Base Excess ABG 5.6 mmol/L (-2.0-2.0); Blood Gas Operator Identificat JDB; Blood Gas Sample Site Brachial, right; Blood Gas Sample Type Arterial; HCO3 ABG 31.2 mmol/L (22-26); HGB O2 Sat 91.2 % (95-100); Ionized Calcium Level - ABG 1.2 mmol/L (1.1-1.4); Methemoglobin 0.9 % (0.4-1.5); Oxygen Device VENT; PO2 ABG 64.2 mmHg (80.0-100.0); PO2 FiO2 Ratio Arterial Blood 183; Potassium Level - ABG 3.7 mmol/L (3.5-5.0); Total Hemoglobin 12.6 g/dL (14-18)
--- NOTE | 2024-07-16 06:00 | XR_ITS ---
WS: [id number] Exam: XR chest 1V portable [id number] Date/Time of Exam: 07/16/2024 5:06 AM Reason For Exam: intubated Comparison 07/15/2024. ET tube remains in satisfactory position ending about 5 cm above the cem. An enteric tube extends below the diaphragm but the tip is not visible. Marked cardiac enlargement with increased pulmonary v ascularity unchanged. The lungs are fully expanded. Plate and screw fixation of several old upper LEF T rib fractures. XR/XR chest 1V portable [id number] IMPRESSION: 1. Cardiac enlargement with increased pulmonary vascularity. The pattern is unc hanged. 2. ET tube remaining in satisfactory position. NG tube in place as noted above.
[2024-07-16 06:19] LABS: Basophils % 0.1 %; Lymphocytes # 0.1 10^3/uL (0.8-4.8); Lymphocytes % 0.9 %; Mean Corpuscular HGB Conc 30.8 g/dL (30-55); Mean Corpuscular Hemoglobin 27.7 pg (27-33); Mean Corpuscular Volume 90.1 fl (82-101); Mean Platelet Volume 9.4 fL (7.4-10.4); Monocytes # 0.2 10^3/uL (0.2-0.9); Monocytes % 1.4 %; Neutrophils # 12.72 10^3/uL (1.8-7.7); Neutrophils % 97.1 %; Nucleated Red Blood Cells % 0.2 %; Platelet Count 296 10^3/cmm (157-399); Red Blood Count 4.44 10^6/uL (3.85-5.65); Red Cell Distribution Width 15.6 % (12.1-15.1); White Blood Count 13.09 10^3/uL (3.29-11.43)
[2024-07-16 06:40] LABS: Alanine Aminotransferase 13 U/L (0-41); Albumin Level 2.7 g/dL (3.5-5.2); Alkaline Phosphatase 73 U/L (40-130); Anion Gap 12.8 (5-19); Aspartate Amino Transferase 18 U/L (0-40); Blood Urea Nitrogen 33 mg/dL (8-23); Calcium 8.5 mg/dL (8.5-10.5); Carbon Dioxide 30 mmol/L (22-29); Chloride 109 mmol/L (98-107); Creatinine Clr Calc Pharmacy 61.2222; Globulin 3.1 g/dL (1.3-4.6); Glucose 141 mg/dL (65-115); Osmolality Calculated 316 mOsm/kg (285-295); Potassium 3.8 mmol/L (3.5-5.1); Sodium 148 mmol/L (136-145); Total Bilirubin 0.4 mg/dL (0.15-1.2); Total Protein 5.8 g/dL (6.6-8.7)
[2024-07-16] MEDS: norepinephrine 4 MG/250 ML BAG 15 MG IV (06:52)
[2024-07-16] MEDS: propofol 1,000 MG/100 ML INJ 13.88 MG IV ×3 (07:25→20:46)
[2024-07-16] MEDS: budesonide 0.5 mg/2 mL Neb INHALATION ×2 (07:38→19:51)
[2024-07-16] MEDS: buPROPion XL (24 HR) 150 mg Tablet PO (08:36)
[2024-07-16] MEDS: pantoprazole DR 40 mg Tablet PO (08:36)
[2024-07-16] MEDS: apixaban 5 mg Tablet PO ×2 (08:36→17:24)
[2024-07-16] MEDS: amiodarone 200 mg Tablet PO (08:36)
[2024-07-16] MEDS: tamsulosin 0.4 mg Capsule PO (08:36)
[2024-07-16] MEDS: nicotine 21 mg Patch 1 PATCH TRANSDERMA (08:37)
[2024-07-16] MEDS: azithromycin 500 MG in sodium chloride 0.9% 250 ML 250 MG IV (08:37)
--- NOTE | 2024-07-16 09:15 | PC.SOCIAL ---
IMM Update Pg. 2 of IMM Updated. Copy provided.
[2024-07-16 12:12] LABS: Glucose Point of Care 114 mg/dL (70-110)
[2024-07-16 12:41] LABS: NT Pro B Type Natriuretic Pept 1570 pg/mL (0-125)
[2024-07-16] MEDS: FUROsemide 10 mg/mL SDV 4mL 40 MG IVP ×2 (12:42→19:23)
[2024-07-16] MEDS: linezolid premix 600 MG/300 ML PREMIX 300 MG IV ×2 (12:42→23:21)
--- NOTE | 2024-07-16 17:20 | P.PN_ITS ---
Subjective 2 Subjective: - Patient was seen this morning -Currently intubated, sedated on mechani bonnie ventilation -On 35% FiO2 -Was on 10 of Levophed overnight, weanin g down this morning -Afebrile overnight -No family members at bedside Vitals/I&O/Wt Last Vital Signs Temp 99 F 07/16/24 12:00 Pulse 105 H 07/16/24 16:30 Resp 20 H 07/16/24 16:00 BP 87/49 07/16/24 16:30 Pulse Ox 91 07/16/24 16:30 O2 Del Method Mechanical Ventilation 07/16/24 16:00 O2 Flow Rate 6 07/14/24 05:05 FiO2 35 07/16/24 16:00 07/16/24 07/16/24 07/16/24 06:59 14:59 22:59 Intake Total 521.125 / 1943.349 850.333 / 850.333 Output Total 150 / 2300 Balance 371.125 / -356.651 850.333 / 850.333 Weight last 48 hrs Weight 104 kg Weight 101.287 kg Physical Exam 2 Const: COMMON NORMALS: no acute distress OTHER: Pupils equal round reactive to light Neck/C-Spine: COMMON NORMALS: no JVD Resp: COMMON NORMALS: normal respiratory effort, No retractions and No use of accessory muscles AUSCULTATION: crackles Cardio: COMMON NORMALS: no JVD, regular rate, regular rhythm, S1 normal heart sound present and S2 normal heart sound present RATE: regular rate RHYTHM: regular rhythm HEART SOUNDS: S1 normal heart sound present and S2 normal heart sound present GI: COMMON NORMALS: Normal to inspection, nondistended, normoactive bowel sounds present and non-tender Extremity: NARRATIVE EXTREMITY EXAM: 1+ pitting edema, anasarca Urinary Catheter Management: Knight: Cath Placed During This Visit: yes Reason for Continuing Indwelling Catheter: Accurate Measurement of Urinary Output in Critically Ill Patients Urinary Catheter Date of Insertion: 07/14/24 Urinary Catheter Time of Insertion: 19:00 Sepsis: Is patient septic: Yes Focused sepsis exam performed: Yes F ocused sepsis exam: DP PT pulses palpable, no mottling of lower extremities, cap refill greater than 2 seconds Data 07/16/24 05:05 07/16/24 05:05 Micro: Microbiology 07/14/24 19:45 Gram Stain - Final Sputum - Endotracheal Tube Aspirate Sputum Culture - Final Moraxella catarrhalis A&P Assessment and plan (1) Acute respiratory failure with hypoxia: (2) Pneumonia: (3) Acute exacerbation of CHF (congestive heart failure): (4) COPD exacerbation: (5) Acute on chronic respiratory failure with hypoxia and hypercapnia: (6) Septic shock: Plan Acute hypoxic hypercarbic respiratory failure -Multifactorial -From pneumonia -CT scan showing CT/CT chest wo con [id number] IMPRESSION: 1. Small right pleural effusion with adjacent compressive atelectasis and/or pneumonia. In combination with severe cardiomegaly, findings are consistent with congestive heart failure. 2. There are emphysematous changes in the lungs. -Endotracheal aspirate growing Moraxella -COPD exacerbation -CHF exacerbation systolic and diastolic, CT scan findings as above, elevated BNP at 1500 Plan ? Currently intubated, sedated on mechanical ventilation -Minimize PEEP, minimize tidal volume -Sedation vacation, spontaneous breathing trial -On propofol, fentanyl for sedation -2 doses of IV Lasix today -Continue Zyvox, Zosyn, azithromycin Continue Solu-Medrol 40 mg IV every 6 hours- -continue DuoNeb -Protonix for GI prophylaxis -Eliquis for DVT prophylaxis History of severe COPD Anasarca -Likely secondary to CHF -Diuresis as above Septic shock -From pneumonia -Continue to wean off Levophed -Maintain MAP greater than 65 -Follow culture results NSTEMI -Type I versus type II -Continue to monitor closely A-fib -Continue amiodarone -Continue Eliquis therapy Attestations 2 Medical Necessity Statement*: Patient requires hospitalization, for acute hypoxic respiratory failure, Pneumonia, septic shock Coding Level of Care Code Critical Care >/= 30 minutes Critical care time (in minutes): 45 The high probability of a clinically significant, sudden or life threatening deterioration, as referenced in this documentation, required my full and direct attention, intervention and personal management. The critical care time shown is in addition to time spent performing any reported separately billable procedures and includes the following: [x] Data and vital sign review and interpretation [x ] Patient assessment, examination and intervention [x] Medication orders and management [x] Patient/Family updates as able [x] Care Coordination and Documentation. Diagnoses Acute respiratory failure with hypoxia J96.01 Pneumonia J18.9 Acute exacerbation of CHF (congestive heart failure) I50.9 COPD exacerbation J44.1 Acute on chronic respiratory failure with hypoxia and hypercapnia J96.21; J96.22 Septic shock A41.9; R65.21
[2024-07-16 17:24] LABS: Glucose Point of Care 138 mg/dL (70-110)
[2024-07-16 21:14] LABS: Glucose Point of Care 175 mg/dL (70-110)
[2024-07-17] VITALS (106 sets, daily range): BP systolic 73–118; BP diastolic 50–95; PULSE 88–142; RESP 8–20; TEMP 37–38.3; O2SAT 90–96; BMI 29.9
[2024-07-17] MEDS: piperacillin-tazobactam 3.375 GM in sodium chloride 0.9% (plus) 50 ML IV ×3 (00:15→17:49)
[2024-07-17] MEDS: propofol 1,000 MG/100 ML INJ 13.88 MG IV ×2 (03:42→09:31)
[2024-07-17] MEDS: methylPREDNISolone sod succ 40 mg/mL INJ IVP ×4 (03:55→21:25)
[2024-07-17] MEDS: ipratropium-albuterol 3 mL Neb INHALATION ×5 (03:59→19:57)
[2024-07-17 05:05] LABS: ABG PCO2 48.7 mmHg (35-45); ABG PH Result 7.46 (7.35-7.45); Alveolar-Arterial Oxygen Gradi 17.7 mmHg (5-10); Arterial Blood Gas Hematocrit 43.3 % (42-52); Base Excess ABG 8.8 mmol/L (-2.0-2.0); Blood Gas Allen Test Pos; Blood Gas Operator Identificat JDB; Blood Gas Sample Site Radial, right; Blood Gas Sample Type Arterial; HCO3 ABG 34.2 mmol/L (22-26); HGB O2 Sat 86.9 % (95-100); Ionized Calcium Level - ABG 1.2 mmol/L (1.1-1.4); Oxygen Device VENT; Oxygen Saturation ABG 88.6; PO2 ABG 54.8 mmHg (80.0-100.0); PO2 FiO2 Ratio Arterial Blood 156; Potassium Level - ABG 3.4 mmol/L (3.5-5.0); Total Hemoglobin 14.1 g/dL (14-18)
[2024-07-17] MEDS: fentaNYL 1,000 MCG/100 ML BAG 10 MCG IV (05:08)
[2024-07-17] MEDS: buPROPion XL (24 HR) 150 mg Tablet PO (06:00)
--- NOTE | 2024-07-17 06:00 | XRR_ITS ---
PROCEDURE INFORMATION: Exam: XR Chest Exam date and time: 07/17/2024 7:03 AM Age: 63 years old Clinical indication: Device placement; Ett placement (vent status); Additional info: Intubated TECHNIQUE: Imaging protocol: Radiologic exam of the chest. Views: 1 view. COMPARISON: CR (CHEST, ) 07/16/2024 5:14 AM FINDINGS: Tubes, catheters and devices: Distal ET tube projects 5.9 cm superior to the cem. NG tube passes below the hemidiaphragms. Lungs: Unremarkable. No consolidation. Pleural spaces: Costophrenic angles are not well seen pleural effusions are not optimally evaluated for. Heart/Mediastinum: Cardiomegaly. Bones/joints: Bones are unchanged. XR/XR chest 1V portable [id number] IMPRESSION: Distal ET tube projects 5.9 cm superior to the cem.
[2024-07-17 06:45] LABS: Lactate (Lactic Acid level) 1.3 mmol/L (0.5-2.2)
[2024-07-17 07:15] LABS: Basophils % 0.1 %; Lymphocytes # 0.2 10^3/uL (0.8-4.8); Lymphocytes % 1.5 %; Mean Corpuscular HGB Conc 30.8 g/dL (30-55); Mean Corpuscular Volume 87.9 fl (82-101); Mean Platelet Volume 9.2 fL (7.4-10.4); Monocytes # 0.2 10^3/uL (0.2-0.9); Monocytes % 1.4 %; Neutrophils # 10.58 10^3/uL (1.8-7.7); Neutrophils % 96.5 %; Nucleated Red Blood Cells % 0 %; Platelet Count 288 10^3/cmm (157-399); Red Blood Count 4.55 10^6/uL (3.85-5.65); Red Cell Distribution Width 15.7 % (12.1-15.1); White Blood Count 10.95 10^3/uL (3.29-11.43)
[2024-07-17 07:48] LABS: NT Pro B Type Natriuretic Pept 2095 pg/mL (0-125)
[2024-07-17 07:59] LABS: Alanine Aminotransferase 11 U/L (0-41); Albumin Level 2.7 g/dL (3.5-5.2); Alkaline Phosphatase 72 U/L (40-130); Anion Gap 13.5 (5-19); Aspartate Amino Transferase 17 U/L (0-40); Blood Urea Nitrogen 33 mg/dL (8-23); C Reactive Protein 13.2 mg/L (0.0-4.9); Calcium 8.4 mg/dL (8.5-10.5); Carbon Dioxide 31 mmol/L (22-29); Chloride 104 mmol/L (98-107); Creatinine Clr Calc Pharmacy 60.1867; Globulin 3.1 g/dL (1.3-4.6); Glucose 130 mg/dL (65-115); Magnesium 1.6 mg/dL (1.7-2.3); Osmolality Calculated 309 mOsm/kg (285-295); Phosphorus 3.3 mg/dL (2.5-4.5); Potassium 3.5 mmol/L (3.5-5.1); Sodium 145 mmol/L (136-145); Total Bilirubin 0.5 mg/dL (0.15-1.2); Total Protein 5.8 g/dL (6.6-8.7)
[2024-07-17] MEDS: budesonide 0.5 mg/2 mL Neb INHALATION ×2 (08:07→19:57)
[2024-07-17] MEDS: amiodarone 200 mg Tablet PO (08:11)
[2024-07-17] MEDS: pantoprazole DR 40 mg Tablet PO (08:11)
[2024-07-17] MEDS: nicotine 21 mg Patch 1 PATCH TRANSDERMA (08:12)
[2024-07-17] MEDS: apixaban 5 mg Tablet PO ×2 (08:12→17:49)
[2024-07-17] MEDS: azithromycin 500 MG in sodium chloride 0.9% 250 ML 250 MG IV (08:21)
[2024-07-17] MEDS: norepinephrine 4 MG/250 ML BAG 7.5 MG IV (08:21)
[2024-07-17 08:48] LABS: Glucose Point of Care 112 mg/dL (70-110)
[2024-07-17] MEDS: lidocaine 1% 5 ML in potassium chloride premix 100 ML 52.5 ML IV (09:21)
[2024-07-17] MEDS: FUROsemide 10 mg/mL SDV 4mL 40 MG IVP ×2 (09:26→17:49)
[2024-07-17] MEDS: linezolid premix 600 MG/300 ML PREMIX 300 MG IV (11:30)
[2024-07-17] MEDS: quetiapine 25 mg Tablet PO ×2 (11:31→17:49)
[2024-07-17 11:37] LABS: Glucose Point of Care 108 mg/dL (70-110)
[2024-07-17] MEDS: amiodarone 150 MG/100 ML PREMIX 400 MG IV (12:18)
[2024-07-17] MEDS: dexmedeTOMIDine 0.9 % NaCL 400 MCG/100 ML PREMIX IV (14:00)
--- NOTE | 2024-07-17 16:21 | CTR_ITS ---
PROCEDURE INFORMATION: Exam: CT Head Without Contrast Exam date and time: 07/17/2024 9:50 PM Age: 63 years old Clinical indication: Other: AMS TECHNIQUE: Imaging protocol: Computed tomography of the head without contrast. Radiation optimization: All CT scans at this facility use at least one of these dose optimization techniques: automated exposure control; mA and/or kV adjustment per patient size (includes targeted exams where dose is matched to clinical indication); or iterative reconstruction. COMPARISON: CT head wo con* [id number] 02/16/2024 8:35 PM RADIATION DOSE METRICS: Total DLP (mGy-cm): 1219.08 FINDINGS: Brain: No hemorrhage. Periventricular and subcortical white matter hypodensities likely represent chronic small vessel ischemic changes. No mass effect. Cerebral ventricles: No ventriculomegaly. Paranasal sinuses: Visualized sinuses are unremarkable. No fluid levels. Mastoid air cells: Visualized mastoid air cells are well aerated. Bones: Unremarkable. No acute fracture. Soft tissues: Unremarkable. CT/CT head wo con* [id number] IMPRESSION: No acute intracranial abnormality.
--- NOTE | 2024-07-17 16:29 | P.PN_ITS ---
Subjective 2 Subjective: - Patient was examined this morning, he is on 2 of Levophed, no acute events overnight, is on propofol, and fentanyl for sedation slowly being weaned off, is on 35% FiO2, is tracking upwards, is looking upwards, pupils equal round reactive to light, does withdraw from pain, has a gag reflex -Examined remains on 35% FiO2 on spontan eous breathing trial, weaning off sedation -Reexamined again in the afternoon, he i s off sedation completely still on 35% FiO2, can follow some commands tends to look upwards -Reexamined, he is off sedation on 35% O 2, tolerating spontaneous breathing trial, did have episode of A-fib with RVR, heart rates into the 150s placed on amiodarone drip with an amiodarone bolus -Currently heart rates in the low 100s a trial fibrillation, rate well-controlled on amiodarone drip on Precedex drip on 35% FiO2, he does follow commands at times is able to squeeze my fingers bilaterally, is able to wiggle his toes, however does not track well, tends to look upwards, pupils equal round reactive to light, urine output 1 L -Examined again late afternoon with nurs ing staff respiratory therapy doing well on a spontaneous breathing trial 35% O2 heart rates are more well-controlled however at times is not following commands tends to look upwards, -Will plan on a head CT Vitals/I&O/Wt Last Vital Signs Temp 100.0 F H 07/17/24 11:00 Pulse 99 07/17/24 15:12 Resp 20 H 07/17/24 16:20 BP 103/69 07/17/24 14:00 Pulse Ox 93 07/17/24 16:20 O2 Del Method Mechanical Ventilation 07/17/24 15:10 O2 Flow Rate 6 07/14/24 05:05 FiO2 35 07/17/24 16:20 07/17/24 07/17/24 07/17/24 06:59 14:59 22:59 Intake Total 643.5 / 7814.745 8673.083 / 1044.083 Output Total 1450 / 2950 850 / 850 Balance -806.5 / -1206.167 194.083 / 194.083 Weight last 48 hrs Weight 100.272 kg Weight 104 kg Physical Exam 2 Const: COMMON NORMALS: no acute distress Resp: COMMON NORMALS: normal respiratory effort, No retractions, No use of accessory muscles and clear to auscultation bilaterally AUSCULTATION: clear to auscultation bilaterally Cardio: COMMON NORMALS: regular rate, regular rhythm, S1 normal heart sound present and S2 normal heart sound present RATE: regular rate RHYTHM: r egular rhythm HEART SOUNDS: S1 normal heart sound present and S2 normal heart sound present GI: COMMON NORMALS: Normal to inspection, nondistended, normoactive bowel sounds present and non-tender Extremity: COMMON NORMALS: no pedal edema NARRATIVE EXTREMITY EXAM: 1+ edema Psych: COMMON NORMALS: mental status grossly normal Urinary Catheter Management: Knight: Cath Placed During This Visit: yes Reason for Continuing Indwelling Catheter: Accurate Measurement of Urinary Output in Critically Ill Patients Urinary Catheter Date of Insertion: 07/14/24 Urinary Catheter Time of Insertion: 19:00 Data 07/17/24 06:37 07/17/24 06:37 Micro: Microbiology 07/14/24 19:45 Gram Stain - Final Sputum - Endotracheal Tube Aspirate Sputum Culture - Final Moraxella catarrhalis A&P Assessment and plan (1) Acute respiratory failure with hypoxia: (2) Pneumonia: (3) Acute exacerbation of CHF (congestive heart failure): (4) COPD exacerbation: (5) Acute on chronic respiratory failure with hypoxia and hypercapnia: (6) Septic shock: Plan Acute hypoxic hypercarbic respiratory failure -Multifactorial -From pneumonia -CT scan showing CT/CT chest wo con [id number] IMPRESSION: 1. Small right pleural effusion with adjacent compressive atelectasis and/or pneumonia. In combination with severe cardiomegaly, findings are consistent with congestive heart failure. 2. There are emphysematous changes in the lungs. -Endotracheal aspirate growing Moraxella -COPD exacerbation -CHF exacerbation systolic and diastolic, CT scan findings as above, elevated BNP at 1500 Plan ? Currently intubated, sedated on mechanical ventilation -Minimize PEEP, minimize tidal volume -Sedation vacation, spontaneous breathing trial -On propofol, fentanyl for sedation -2 doses of IV Lasix today -Continue Zyvox, Zosyn, azithromycin Continue Solu-Medrol 40 mg IV every 6 hours- -continue DuoNeb -Protonix for GI prophylaxis -Eliquis for DVT prophylaxis History of severe COPD Anasarca -Likely secondary to CHF -Diuresis as above Septic shock -From pneumonia -Continue to wean off Levophed -Maintain MAP greater than 65 -Follow culture results NSTEMI -Type I versus type II -Continue to monitor closely A-fib -A-fib with RVR, continue amiodarone drip with amiodarone bolus -Continue Eliquis therapy Now with acute encephalopathy -On the ventilator he has a gag reflex, pupils equal round reactive to light but tends to look upwards -He was at times he can follow simple commands such as wiggling his toes but does not move his arms but he was able to squeeze my fingers bilaterally although this command following seems to fluctuate, he does not look at me he does not track, and tends to look upwards -Will do a head CT Plan for today amiodarone drip with amiodarone bolus spontaneous breathing trial head CT wean off Levophed continue IV antibiotics, after head CT will likely keep on sedation throughout the night, wean sedation early in the morning at [address] was within normal limits plans on extubating early in the morning tomorrow Attestations 2 Medical Necessity Statement*: Patient requires hospitalization for acute encephalopathy, acute respiratory failure, septic shock, anasarca, intubated, sedated on mechanical ventilation, fluid overload Coding Level of Care Code Critical Care >/= 30 minutes Critical care time (in minutes): 55 The high probability of a clinically significant, sudden or life threatening deterioration, as referenced in this documentation, required my full and direct attention, intervention and personal management. The critical care time shown is in addition to time spent performing any reported separately billable procedures and includes the following: [x] Data and vital sign review and interpretation [x ] Patient assessment, examination and intervention [x] Medication orders and management [x] Patient/Family updates as able [x] Care Coordination and Documentation. Diagnoses Acute respiratory failure with hypoxia J96.01 Pneumonia J18.9 Acute exacerbation of CHF (congestive heart failure) I50.9 COPD exacerbation J44.1 Acute on chronic respiratory failure with hypoxia and hypercapnia J96.21; J96.22 Septic shock A41.9; R65.21
[2024-07-17 18:03] LABS: Glucose Point of Care 135 mg/dL (70-110)
[2024-07-17 22:46] LABS: Glucose Point of Care 135 mg/dL (70-110)
[2024-07-18] VITALS (106 sets, daily range): BP systolic 78–143; BP diastolic 51–108; PULSE 86–144; RESP 10–18; TEMP 36.7–38.6; O2SAT 86–99; BMI 29.6
[2024-07-18] MEDS: linezolid premix 600 MG/300 ML PREMIX 300 MG IV ×2 (00:01→12:43)
[2024-07-18] MEDS: ipratropium-albuterol 3 mL Neb INHALATION ×6 (00:21→20:08)
[2024-07-18] MEDS: fentaNYL 1,000 MCG/100 ML BAG 5 MCG IV (01:04)
[2024-07-18] MEDS: propofol 1,000 MG/100 ML INJ 8.33 MG IV (01:04)
[2024-07-18] MEDS: piperacillin-tazobactam 3.375 GM in sodium chloride 0.9% (plus) 50 ML IV ×3 (01:05→18:05)
[2024-07-18] MEDS: chlorhexidine gluconate 4% Btl 118 mL 1 APPLIC TOPICAL (02:38)
[2024-07-18] MEDS: methylPREDNISolone sod succ 40 mg/mL INJ IVP ×2 (03:46→18:06)
[2024-07-18 04:08] LABS: ABG PCO2 56.4 mmHg (35-45); ABG PH Result 7.42 (7.35-7.45); Arterial Blood Gas Hematocrit 39.9 % (42-52); Base Excess ABG 10.3 mmol/L (-2.0-2.0); Blood Gas Allen Test Pos; Blood Gas Sample Site Radial, right; Blood Gas Sample Type Arterial; HCO3 ABG 36.8 mmol/L (22-26); Oxygen Device VENT; PO2 ABG 73.2 mmHg (80.0-100.0); PO2 FiO2 Ratio Arterial Blood 209
[2024-07-18 04:19] LABS: Basophils % 0.1 %; Lymphocytes # 0.2 10^3/uL (0.8-4.8); Lymphocytes % 2.1 %; Mean Corpuscular Hemoglobin 27.2 pg (27-33); Mean Corpuscular Volume 90.7 fl (82-101); Mean Platelet Volume 9.1 fL (7.4-10.4); Monocytes # 0.2 10^3/uL (0.2-0.9); Monocytes % 2.3 %; Neutrophils # 7.77 10^3/uL (1.8-7.7); Nucleated Red Blood Cells % 0 %; Platelet Count 243 10^3/cmm (157-399); Red Blood Count 4.63 10^6/uL (3.85-5.65); Red Cell Distribution Width 15.6 % (12.1-15.1); White Blood Count 8.18 10^3/uL (3.29-11.43)
[2024-07-18 04:34] LABS: Alanine Aminotransferase 10 U/L (0-41); Albumin Level 2.7 g/dL (3.5-5.2); Alkaline Phosphatase 61 U/L (40-130); Anion Gap 12.7 (5-19); Aspartate Amino Transferase 14 U/L (0-40); Blood Urea Nitrogen 38 mg/dL (8-23); C Reactive Protein 9.4 mg/L (0.0-4.9); Calcium 8.2 mg/dL (8.5-10.5); Carbon Dioxide 34 mmol/L (22-29); Chloride 101 mmol/L (98-107); Creatinine Clr Calc Pharmacy 60.1867; Globulin 2.9 g/dL (1.3-4.6); Glucose 143 mg/dL (65-115); Magnesium 1.7 mg/dL (1.7-2.3); Osmolality Calculated 310 mOsm/kg (285-295); Phosphorus 4.4 mg/dL (2.5-4.5); Potassium 3.7 mmol/L (3.5-5.1); Sodium 144 mmol/L (136-145); Total Bilirubin 0.4 mg/dL (0.15-1.2); Total Protein 5.6 g/dL (6.6-8.7)
[2024-07-18 04:35] LABS: Lactate (Lactic Acid level) 1.7 mmol/L (0.5-2.2)
[2024-07-18 04:41] LABS: NT Pro B Type Natriuretic Pept 2439 pg/mL (0-125); Procalcitonin 0.07 ng/mL (0-0.5)
[2024-07-18] MEDS: FUROsemide 10 mg/mL SDV 4mL 40 MG IVP ×2 (05:11→18:05)
[2024-07-18] MEDS: buPROPion XL (24 HR) 150 mg Tablet PO (05:11)
--- NOTE | 2024-07-18 06:01 | PC.NURSE ---
Weaning from sedation: In an attempt to slowly wean off sedation, patient made several attempts to self-extubate and was not redirectable. Patient remained in restraints but was able to pull himself forward and raise his legs an efforts to remove his ET tube. Patient's sedation was returned to previous settings, will try again at time of extubation.
[2024-07-18 07:58] LABS: Glucose Point of Care 126 mg/dL (70-110)
[2024-07-18] MEDS: budesonide 0.5 mg/2 mL Neb INHALATION ×2 (08:36→20:08)
[2024-07-18] MEDS: pantoprazole DR 40 mg Tablet PO (09:02)
[2024-07-18] MEDS: apixaban 5 mg Tablet PO ×2 (09:02→18:04)
--- NOTE | 2024-07-18 09:27 | PC.SOCIAL ---
IMM Update Pg. 2 of IMM updated and copy provided at bedside.
--- NOTE | 2024-07-18 09:36 | PC.NURSE ---
Dr. Jose at bedside, plan to get sedation off and extubate today if tolerated. with sedation down patient became very uncooperative and kicking at staff attempting to pull at central one and ET tube. plan to use precedex.
[2024-07-18] MEDS: dexmedeTOMIDine 0.9 % NaCL 400 MCG/100 ML PREMIX 11.57 MCG IV (09:44)
--- NOTE | 2024-07-18 11:02 | PC.NURSE ---
Patient able to follow commands, Dr. Zapata at bedside, extubated per RT to 6L NC
[2024-07-18 11:21] LABS: Glucose Point of Care 127 mg/dL (70-110)
--- NOTE | 2024-07-18 13:03 | PC.NURSE ---
Patient continues to yell and cuss at staff, not cooperative, this nurse attempted to hold a cup of water for patient who then stated give me the damn cup you ass hole, im not a fucking child you dip shit patient was unable to to drink out of the cup by himself and stated dont just stand there like an ass hole and help me, I feel sorry for any kid you have for having to deal with you
[2024-07-18] MEDS: OLANZapine 5 mg ODT PO ×2 (13:15→21:19)
--- NOTE | 2024-07-18 14:54 | PC.NURSE ---
Patient has 805 dollars in wallet that is hooked to his wrist per patient request
--- NOTE | 2024-07-18 15:37 | PC.OT ---
OT EVALUATION ATTEMPTED; NURSING REQUESTS HOLD DUE TO AGITATION
[2024-07-18 16:15] LABS: Glucose Point of Care 109 mg/dL (70-110)
--- NOTE | 2024-07-18 16:33 | P.PN_ITS ---
Subjective 2 Subjective: - Patient was examined multiple times th roughout the morning -Yesterday there was a concern as patien t was not tracking me, continue to look upwards his head CT was done last night no acute findings -This morning he looks straight up by me is able to track me, able to follow me around the room, is quite agitated tries to sit up in bed, does not continue to look upwards like he did yesterday -Early this morning he was seen, he is a lert, he follows commands, he is trying to remove his endotracheal tube trying to self extubate himself, I was able to talk him down, he is quite agitated, this is while he was on propofol and fentanyl, on 35% FiO2 -Discussed with nursing staff, we will k eep him on Precedex, weaned off propofol fentanyl continues to be agitated but does follow commands, discussed that extubation will be difficult for him, and high risk of complications if he does not follow commands, he is able to calm down, remains at 35% FiO2 undergoing spontaneous breathing trial ? Reexamined, respiratory therapy at bedside nursing staff at bedside, patient was extubated to nasal cannula -Reexamined throughout the morning on na marah cannula does easily become agitated, he is yelling out curse words to nursing staff, but is redirectable, -In the afternoon the patient was having fevers, will repeat his blood cultures, urine cultures, respiratory viral panel -Will continue IV diuresis Vitals/I&O/Wt Last Vital Signs Temp 101.5 F H 07/18/24 10:28 Pulse 106 H 07/18/24 16:15 Resp 16 07/18/24 15:15 BP 110/67 07/18/24 16:15 Pulse Ox 96 07/18/24 16:15 O2 Del Method Nasal Cannula 07/18/24 15:15 O2 Flow Rate 6 07/18/24 15:15 FiO2 35 07/18/24 10:32 07/18/24 07/18/24 07/18/24 06:59 14:59 22:59 Intake Total 819.648 / 2155.443 238.781 / 238.781 Output Total 700 / 2600 Balance 119.648 / -444.557 238.781 / 238.781 Weight last 48 hrs Weight 99 kg Weight 100.272 kg Physical Exam 2 Const: COMMON NORMALS: no acute distress Eye: COMMON NORMALS: Equal, round and reactive pupils present PUPIL: Yes Equal, round and reactive pupils present Resp: COMMON NORMALS: normal respiratory effort, No retractions and No use of accessory muscles AUSCULTATION: crackles and wheezes Cardio: COMMON NORMALS: regular rate, regular rhythm, S1 normal heart sound present and S2 normal heart sound present RATE: regular rate RHYTHM: r egular rhythm HEART SOUNDS: S1 normal heart sound present and S2 normal heart sound present GI: COMMON NORMALS: Normal to inspection, nondistended, normoactive bowel sounds present and non-tender Extremity: NARRATIVE EXTREMITY EXAM: 1+ edema pitting bilateral extremity Urinary Catheter Management: Knight: Cath Placed During This Visit: yes Reason for Continuing Indwelling Catheter: Accurate Measurement of Urinary Output in Critically Ill Patients Urinary Catheter Date of Insertion: 07/14/24 Urinary Catheter Time of Insertion: 19:00 Data 07/18/24 03:49 07/18/24 03:49 A&P Assessment and plan (1) Acute respiratory failure with hypoxia: (2) Pneumonia: (3) Acute exacerbation of CHF (congestive heart failure): (4) COPD exacerbation: (5) Acute on chronic respiratory failure with hypoxia and hypercapnia: (6) Septic shock: Plan Acute hypoxic hypercarbic respiratory failure -Multifactorial -From pneumonia -Sputum culture showing Moraxella -CT scan showing CT/CT chest wo con [id number] IMPRESSION: 1. Small right pleural effusion with adjacent compressive atelectasis and/or pneumonia. In combination with severe cardiomegaly, findings are consistent with congestive heart failure. 2. There are emphysematous changes in the lungs. -Endotracheal aspirate growing Moraxella -COPD exacerbation -CHF exacerbation systolic and diastolic, CT scan findings as above, elevated BNP at 1500 -Extubated to nasal cannula Plan ? Currently on Precedex for agitation -2 doses of IV Lasix today, 2.9 L urine output yesterday -Continue Zyvox, Zosyn, Continue Solu-Medrol 40 mg IV every 12 hours- -continue DuoNeb -Protonix for GI prophylaxis -Eliquis for DVT prophylaxis Agitation -Continue Precedex -Add Zyprexa 5 mg twice daily History of severe COPD Anasarca -Likely secondary to CHF -Diuresis as above Septic shock, resolving -Septic shock was not present on admission -From pneumonia -Continue to wean off Levophed -Maintain MAP greater than 65 -Follow culture results Persistent fevers -Repeat blood cultures -Repeat urine cultures -Sputum cultures -Respiratory viral panel NSTEMI -Type I versus type II -Continue to monitor closely A-fib -A-fib with RVR, continue amiodarone drip transition to p.o. amiodarone -Continue Eliquis therapy acute encephalopathy, resolving -Head CT no acute findings -Now agitated - Patient was examined multiple times throughout the morning -Yesterday there was a concern as patient was not tracking me, continue to look upwards his head CT was done last night no acute findings -This morning he looks straight up by me is able to track me, able to follow me around the room, is quite agitated tries to sit up in bed, does not continue to look upwards like he did yesterday -Early this morning he was seen, he is alert, he follows commands, he is trying to remove his endotracheal tube trying to self extubate himself, I was able to talk him down, he is quite agitated, this is while he was on propofol and fentanyl, on 35% FiO2 -Discussed with nursing staff, we will keep him on Precedex, weaned off propofol fentanyl continues to be agitated but does follow commands, discussed that extubation will be difficult for him, and high risk of complications if he does not follow commands, he is able to calm down, remains at 35% FiO2 undergoing spontaneous breathing trial ? Reexamined, respiratory therapy at bedside nursing staff at bedside, patient was extubated to nasal cannula -Reexamined throughout the morning on nasal cannula does easily become agitated, he is yelling out curse words to nursing staff, but is redirectable, -In the afternoon the patient was having fevers, will repeat his blood cultures, urine cultures, respiratory viral panel -Will continue IV diuresis Attestations 2 Medical Necessity Statement*: Patient requires hospitalization for acute hypoxic respiratory failure secondary pneumonia, CHF, septic shock, persistent fevers Coding Level of Care Code Critical Care >/= 30 minutes Critical care time (in minutes): 50 The high probability of a clinically significant, sudden or life threatening deterioration, as referenced in this documentation, required my full and direct attention, intervention and personal management. The critical care time shown is in addition to time spent performing any reported separately billable procedures and includes the following: [x] Data and vital sign review and interpretation [x ] Patient assessment, examination and intervention [x] Medication orders and management [x] Patient/Family updates as able [x] Care Coordination and Documentation. Diagnoses Acute respiratory failure with hypoxia J96.01 Pneumonia J18.9 Acute exacerbation of CHF (congestive heart failure) I50.9 COPD exacerbation J44.1 Acute on chronic respiratory failure with hypoxia and hypercapnia J96.21; J96.22 Septic shock A41.9; R65.21
[2024-07-18] MEDS: amiodarone 200 mg Tablet 400 MG PO (18:04)
[2024-07-18 21:11] LABS: Glucose Point of Care 121 mg/dL (70-110)
[2024-07-18 23:05] LABS: Adenovirus Not Detected (NOT DETECT); Chlamydia Pneumoniae Not Detected (NOT DETECT); Coronavirus 229E,HKU1,NL63,OC4 Not Detected (NOT DETECT); Human Metapneumovirus Not Detected (NOT DETECT); Human Rhinovirus/Enterovirus Not Detected (NOT DETECT); Influenza A Not Detected (NOT DETECT); Influenza A H1 Not Detected (NOT DETECT); Influenza A H1-2009 Not Detected (NOT DETECT); Influenza A H3 Not Detected (NOT DETECT); Influenza B Not Detected (NOT DETECT); Mycoplasma Pneumoniae Not Detected (NOT DETECT); Parainfluenza Virus Type 1 Not Detected (NOT DETECT); Parainfluenza Virus Type 2 Not Detected (NOT DETECT); Parainfluenza Virus Type 3 Not Detected (NOT DETECT); Parainfluenza Virus Type 4 Not Detected (NOT DETECT); Respiratory Syncytial Virus A Not Detected (NOT DETECT); Respiratory Syncytial Virus B Not Detected (NOT DETECT); SARS-COV-2 Not Detected (NOT DETECT)
[2024-07-19] VITALS (44 sets, daily range): BP systolic 86–136; BP diastolic 61–76; PULSE 60–122; RESP 17–22; TEMP 36.5–37.1; O2SAT 90–98
[2024-07-19] MEDS: piperacillin-tazobactam 3.375 GM in sodium chloride 0.9% (plus) 50 ML IV ×3 (01:13→17:18)
[2024-07-19] MEDS: linezolid premix 600 MG/300 ML PREMIX 300 MG IV ×2 (01:13→13:01)
[2024-07-19] MEDS: ipratropium-albuterol 3 mL Neb INHALATION ×4 (04:12→20:26)
[2024-07-19 04:22] LABS: Basophils % 0.1 %; Hematocrit 42.4 % (37-53); Lymphocytes # 0.2 10^3/uL (0.8-4.8); Lymphocytes % 2.2 %; Mean Corpuscular HGB Conc 29.7 g/dL (30-55); Mean Corpuscular Hemoglobin 26.9 pg (27-33); Mean Corpuscular Volume 90.6 fl (82-101); Mean Platelet Volume 9.2 fL (7.4-10.4); Monocytes # 0.2 10^3/uL (0.2-0.9); Monocytes % 2.1 %; Neutrophils # 9.28 10^3/uL (1.8-7.7); Neutrophils % 95.2 %; Nucleated Red Blood Cells % 0 %; Platelet Count 203 10^3/cmm (157-399); Red Blood Count 4.68 10^6/uL (3.85-5.65); Red Cell Distribution Width 15.2 % (12.1-15.1); White Blood Count 9.74 10^3/uL (3.29-11.43)
[2024-07-19 04:45] LABS: Lactate (Lactic Acid level) 2.3 mmol/L (0.5-2.2)
[2024-07-19 04:52] LABS: Alanine Aminotransferase 12 U/L (0-41); Albumin Level 2.8 g/dL (3.5-5.2); Alkaline Phosphatase 60 U/L (40-130); Anion Gap 12.4 (5-19); Aspartate Amino Transferase 23 U/L (0-40); Blood Urea Nitrogen 38 mg/dL (8-23); C Reactive Protein 7.5 mg/L (0.0-4.9); Calcium 8.3 mg/dL (8.5-10.5); Carbon Dioxide 38 mmol/L (22-29); Chloride 97 mmol/L (98-107); Creatinine Clr Calc Pharmacy 64.1071; Globulin 2.7 g/dL (1.3-4.6); Glomerular Filtration Rate 50.9 mL/min (90-130); Glucose 131 mg/dL (65-115); Magnesium 1.7 mg/dL (1.7-2.3); Osmolality Calculated 309 mOsm/kg (285-295); Phosphorus 4.8 mg/dL (2.5-4.5); Potassium 3.4 mmol/L (3.5-5.1); Sodium 144 mmol/L (136-145); Total Bilirubin 0.6 mg/dL (0.15-1.2); Total Protein 5.5 g/dL (6.6-8.7)
[2024-07-19 04:53] LABS: NT Pro B Type Natriuretic Pept 3144 pg/mL (0-125); Procalcitonin 0.07 ng/mL (0-0.5)
[2024-07-19] MEDS: buPROPion XL (24 HR) 150 mg Tablet PO (05:22)
[2024-07-19] MEDS: methylPREDNISolone sod succ 40 mg/mL INJ IVP (05:22)
[2024-07-19 08:00] LABS: Glucose Point of Care 112 mg/dL (70-110)
[2024-07-19] MEDS: budesonide 0.5 mg/2 mL Neb INHALATION ×2 (08:01→20:26)
[2024-07-19] MEDS: FUROsemide 10 mg/mL SDV 4mL 40 MG IVP ×2 (08:56→17:19)
[2024-07-19] MEDS: lidocaine 1% 5 ML in potassium chloride premix 100 ML 52.5 ML IV ×2 (08:57→17:19)
[2024-07-19] MEDS: OLANZapine 5 mg ODT PO ×2 (08:58→17:18)
[2024-07-19] MEDS: apixaban 5 mg Tablet PO ×2 (08:59→17:18)
[2024-07-19] MEDS: pantoprazole DR 40 mg Tablet PO (08:59)
[2024-07-19] MEDS: metOLazone 5 MG Tablet PO (08:59)
[2024-07-19] MEDS: amiodarone 200 mg Tablet 400 MG PO ×2 (08:59→17:18)
[2024-07-19] MEDS: LORazepam 2 mg/mL INJ 1 mL 1 MG IVP (09:09)
--- NOTE | 2024-07-19 09:51 | PC.NURSE ---
patient has been non compliant with staff, yelling and cussing. not wanting to wait for staff to finish with care of other patients. wanted to leave AMA because diet is clear liquid only. Dr. Zapata has been in room and staff has attempted to educate multiple times
--- NOTE | 2024-07-19 11:54 | PC.NURSE ---
Patient demanded to not be woken up for anything other than food, refused to take medications and check blood sugar
--- NOTE | 2024-07-19 11:59 | PC.OT ---
OT EVALUATION HELD TODAY PER DR REQUEST DUE TO AGITATION.
--- NOTE | 2024-07-19 16:39 | P.PN_ITS ---
Subjective 2 Subjective: - Patient was examined this morning -Patient can be heard from the hallway, swearing, cussing, yelling expletives at the nursing staff, and at me -Patient tells me that he wants anything he wants, he is going to drink and eat what ever he wants and there is nothing that we can do about it -He tells me that if he does not get wha t he wants, he is going to leave AGAINST MEDICAL ADVICE -Nursing staff at bedside, case manageme nt at bedside -I did detailed discussion with Gareth, he has been extubated yesterday, he continues to have episodes of coughing, I am worried that he is aspirating, discussed morbidity and mortality associated with aspiration, aspiration pneumonia, sepsis, septic shock, recurrent intubation, morbidity and mortality associated -He tells me he does not care, he is goi ng to do what he wants, he is going to eat and drink what he wants he swears at me during our discussion -We discussed patient's respiratory fail ure, his aspiration risk, will have speech therapy see him, hopefully if he does well in his swallows evaluation, hopefully we can advance his diet, he yells and expletives and tells me he does not care what swallow test shows he is going to do what he wants -We had a discussion I advised him that this is for his best, to ensure that he does well clinically that he does well he tells me that he wants to do well, but he does not care about my orders, he was going to do what he wants -We discussed sticking to my orders, fol lowing our instructions, as this will be important for him, and will help him, hopefully help him continue to get better and eventually get discharged from the hospital we want him to go back to his life outside the hospital -Discussed the morbidity of mortality ab out leaving AGAINST MEDICAL ADVICE I would advise against it, risk of worsening respiratory failure, risk of complications, risk of significant morbidity and mortality, risk of reintubation, he tells me he does not care, he is going to do what he wants -He is still quite upset, continues to y ell expletives -We discussed his pneumonia, his signifi cant deconditioning, his septic shock, his severe COPD, his A-fib, NSTEMI NSTEMI, he does not want to hear this, he tells me he does not care, he is going to do what he wants Vitals/I&O/Wt Last Vital Signs Temp 98.8 F 07/19/24 04:00 Pulse 90 07/19/24 16:00 Resp 20 H 07/19/24 15:45 BP 108/76 07/19/24 16:00 Pulse Ox 95 07/19/24 16:00 O2 Del Method Nasal Cannula 07/19/24 15:45 O2 Flow Rate 6 07/19/24 15:45 FiO2 35 07/18/24 10:32 07/19/24 07/19/24 07/19/24 06:59 14:59 22:59 Intake Total 350 / 1897.134 350 / 350 Balance 350 / 497.134 350 / 350 Weight last 48 hrs Weight 100 kg Weight 99 kg Physical Exam 2 Const: ORIENTATION/CONSCIOUSNESS: Yes awake, Yes oriented to person and Yes oriented to place; not oriented to time OTHER: Very agitated, swearing and cussing throughout my examination, he is swearing and cussing can be heard throughout the ICU he is yelling and cussing at the nursing staff Resp: COMMON NORMALS: normal respiratory effort, No retractions and No use of accessory muscles AUSCULTATION: crackles Cardio: COMMON NORMALS: regular rate, regular rhythm, S1 normal heart sound present and S2 normal heart sound present RATE: regular rate RHYTHM: r egular rhythm HEART SOUNDS: S1 normal heart sound present and S2 normal heart sound present GI: COMMON NORMALS: Normal to inspection, nondistended, normoactive bowel sounds present and non-tender Extremity: NARRATIVE EXTREMITY EXAM: 2+ pitting edema bilateral extremity Neuro: SENSORIUM/ORIENTATION: Yes oriented to person, Yes oriented to place and No oriented to time Urinary Catheter Management: Knight: Cath Placed During This Visit: yes Reason for Continuing Indwelling Catheter: Accurate Measurement of Urinary Output in Critically Ill Patients Urinary Catheter Date of Insertion: 07/14/24 Urinary Catheter Time of Insertion: 19:00 Data 07/19/24 03:46 07/19/24 03:46 Micro: Microbiology 07/18/24 21:00 Gram Stain - Final Sputum - Expectorated Sputum 07/14/24 02:12 Blood Culture - Final Blood NO GROWTH AFTER 5 DAYS 07/18/24 17:55 Blood Culture - Preliminary Blood SPECIMEN COLLECTED 07/18/24 18:05 Blood Culture - Preliminary Blood SPECIMEN COLLECTED A&P Assessment and plan (1) Acute respiratory failure with hypoxia: (2) Pneumonia: (3) Acute exacerbation of CHF (congestive heart failure): (4) COPD exacerbation: (5) Acute on chronic respiratory failure with hypoxia and hypercapnia: (6) Septic shock: Plan Acute hypoxic hypercarbic respiratory failure -Multifactorial -From pneumonia -Sputum culture showing Moraxella -CT scan showing CT/CT chest wo con [id number] IMPRESSION: 1. Small right pleural effusion with adjacent compressive atelectasis and/or pneumonia. In combination with severe cardiomegaly, findings are consistent with congestive heart failure. 2. There are emphysematous changes in the lungs. -Endotracheal aspirate growing Moraxella -COPD exacerbation -CHF exacerbation systolic and diastolic, CT scan findings as above, elevated BNP at 1500 -Extubated to nasal cannula 07/18/2024 Plan ? Currently on Precedex for agitation, will wean off -Currently on Zyprexa for agitation -2 doses of IV Lasix today, for fluid overload -Continue Zyvox, Zosyn, -De-escalate to Solu-Medrol 40 mg IV push every 24 hours -continue DuoNeb -Protonix for GI prophylaxis -Eliquis for DVT prophylaxis Agitation -Continue Precedex, will wean off -Add Zyprexa 5 mg twice daily -Haldol as needed for agitation -Ativan as needed for agitation History of severe COPD Anasarca -Likely secondary to CHF -Diuresis as above Septic shock, resolved -Septic shock was not present on admission -From pneumonia -Continue to wean off Levophed -Maintain MAP greater than 65 -Follow culture results Persistent fevers, resolving -Repeat blood cultures -Repeat urine cultures -Sputum cultures -Respiratory viral panel within normal limits NSTEMI -Type I versus type II -Continue to monitor closely A-fib -A-fib with RVR, continue amiodarone drip transitioned to p.o. amiodarone -Continue Eliquis therapy Deconditioning, PT OT, speech therapy eval acute encephalopathy, resolving -Head CT no acute findings -Now agitated Full code -Eliquis for DVT prophylaxis Attestations 2 Medical Necessity Statement*: Patient requires hospitalization, for acute hypoxic respiratory failure secondary fluid overload, pneumonia, now with anasarca, fluid overload, agitation and High MDM includes number and complexity of problems actively addressed during encounter as documented Diagnoses Acute respiratory failure with hypoxia J96.01 Pneumonia J18.9 Acute exacerbation of CHF (congestive heart failure) I50.9 COPD exacerbation J44.1 Acute on chronic respiratory failure with hypoxia and hypercapnia J96.21; J96.22 Septic shock A41.9; R65.21
[2024-07-19 16:42] LABS: Glucose Point of Care 170 mg/dL (70-110)
[2024-07-19] MEDS: insulin lispro 100 unit/1 mL SUBCUT (17:18)
[2024-07-19 20:32] LABS: Glucose Point of Care 260 mg/dL (70-110)
[2024-07-20] VITALS (16 sets, daily range): BP systolic 106–150; BP diastolic 64–93; PULSE 63–120; RESP 17–24; TEMP 36.5–36.9; O2SAT 89–93
[2024-07-20] MEDS: piperacillin-tazobactam 3.375 GM in sodium chloride 0.9% (plus) 50 ML IV ×3 (00:17→17:42)
[2024-07-20] MEDS: linezolid premix 600 MG/300 ML PREMIX 300 MG IV ×2 (00:18→12:45)
[2024-07-20 02:54] LABS: Glucose Point of Care 121 mg/dL (70-110)
[2024-07-20] MEDS: ipratropium-albuterol 3 mL Neb INHALATION ×5 (03:17→20:04)
[2024-07-20] MEDS: buPROPion XL (24 HR) 150 mg Tablet PO (05:26)
[2024-07-20 05:48] LABS: Glucose Point of Care 217 mg/dL (70-110)
[2024-07-20 06:50] LABS: Basophils % 0.1 %; Hematocrit 45.4 % (37-53); Lymphocytes # 0.3 10^3/uL (0.8-4.8); Mean Corpuscular HGB Conc 30.8 g/dL (30-55); Mean Corpuscular Hemoglobin 27.1 pg (27-33); Mean Corpuscular Volume 87.8 fl (82-101); Mean Platelet Volume 9.5 fL (7.4-10.4); Monocytes # 0.6 10^3/uL (0.2-0.9); Monocytes % 5.4 %; Neutrophils # 10.46 10^3/uL (1.8-7.7); Neutrophils % 91.2 %; Nucleated Red Blood Cells % 0 %; Platelet Count 228 10^3/cmm (157-399); Red Blood Count 5.17 10^6/uL (3.85-5.65); Red Cell Distribution Width 14.7 % (12.1-15.1); White Blood Count 11.46 10^3/uL (3.29-11.43)
[2024-07-20 07:12] LABS: Alanine Aminotransferase 19 U/L (0-41); Albumin Level 2.8 g/dL (3.5-5.2); Alkaline Phosphatase 73 U/L (40-130); Anion Gap 12.3 (5-19); Aspartate Amino Transferase 30 U/L (0-40); Blood Urea Nitrogen 39 mg/dL (8-23); Calcium 8.4 mg/dL (8.5-10.5); Chloride 93 mmol/L (98-107); Creatinine Clr Calc Pharmacy 63.4515; Globulin 2.7 g/dL (1.3-4.6); Glomerular Filtration Rate 50.9 mL/min (90-130); Glucose 126 mg/dL (65-115); Magnesium 1.5 mg/dL (1.7-2.3); Osmolality Calculated 307 mOsm/kg (285-295); Phosphorus 2.6 mg/dL (2.5-4.5); Potassium 3.3 mmol/L (3.5-5.1); Sodium 143 mmol/L (136-145); Total Bilirubin 0.6 mg/dL (0.15-1.2); Total Protein 5.5 g/dL (6.6-8.7)
[2024-07-20 07:14] LABS: Carbon Dioxide 41 mmol/L (22-29)
[2024-07-20] MEDS: budesonide 0.5 mg/2 mL Neb INHALATION ×2 (08:23→20:04)
[2024-07-20] MEDS: insulin lispro 100 unit/1 mL SUBCUT ×2 (09:59→17:43)
[2024-07-20] MEDS: lidocaine 1% 5 ML in potassium chloride premix 100 ML 52.5 ML IV (10:01)
[2024-07-20] MEDS: FUROsemide 10 mg/mL SDV 4mL 40 MG IVP ×2 (10:01→22:56)
[2024-07-20] MEDS: magnesium sulfate premix 1 GM/100 ML PIGGYBACK IV (10:01)
[2024-07-20] MEDS: nicotine 21 mg Patch 1 PATCH TRANSDERMA (10:02)
[2024-07-20] MEDS: pantoprazole DR 40 mg Tablet PO (10:02)
[2024-07-20] MEDS: apixaban 5 mg Tablet PO ×2 (10:02→17:42)
[2024-07-20] MEDS: OLANZapine 5 mg ODT PO ×2 (10:02→17:42)
[2024-07-20] MEDS: amiodarone 200 mg Tablet 400 MG PO ×2 (10:02→17:42)
[2024-07-20] MEDS: predniSONE 20 mg Tablet 40 MG PO (10:03)
[2024-07-20 11:31] LABS: Glucose Point of Care 137 mg/dL (70-110)
[2024-07-20 11:47] LABS: C.Diff PCR (Lab) NEGATIVE (Negative)
--- NOTE | 2024-07-20 13:02 | PC.SOCIAL ---
Updated IMM. Updated pt on IMM. No questions voiced. Provided pt a copy. Initialed, dated, & timed copy in chart.
--- NOTE | 2024-07-20 15:00 | P.PN_ITS ---
Subjective 2 Subjective: - Patient was examined this morning, [facility] staff -The very first thing patient tells me that he wants to leave against medical -He sitting up in a chair, nursing staff at bedside, speech therapy at bedside -Patient tells me that he is going to le ave the hospital today, he wants to leave he does not care anymore, he wants to leave AGAINST MEDICAL ADVICE -I did detailed discussion with him that given his pneumonia, his respiratory failure and his CHF he has been extubated roughly 2 days ago he needs close monitoring as inpatient, need to diurese him continue IV antibiotics, optimize his medications, he is significantly deconditioned he is going to need extensive PT OT ? He also needs speech therapy eval, is not high aspiration risk -However patient continuously gets angry he tells me he wants to leave the hospital he is going to leave today he is going to leave AGAINST MEDICAL ADVICE -I had a clear discussion with him in fr ont of nursing staff and informed speech therapy -alert oriented x 3 he can follow all co mmands he can make decisions for himself -I advised him that if he leaves AGAINST MEDICAL ADVICE he has a high risk of morbidity and mortality, high risk of , high risk of suffering, high risk of rehospitalization and high risk of reintubation, high risk of complications including cardiac events, worsening infection, falls, trauma, broken bones -I advised him not to leave AGAINST MEDI PAM ADVICE as associate with high risk of morbidity mortality however he tells me he is going to leave, he does not care -I would recommend for him to stay here in the hospital for us to watch him closely for me to optimize his medications, allow him to get better, and hopefully once he is clinically better he can be discharged home safely -However he becomes upset tells me that he is going to leave AGAINST MEDICAL ADVICE today Vitals/I&O/Wt Last Vital Signs Temp 98.5 F 07/20/24 11:32 Pulse 101 H 07/20/24 11:32 Resp 22 H 07/20/24 11:32 BP 143/85 07/20/24 11:32 Pulse Ox 92 07/20/24 11:32 O2 Del Method Nasal Cannula 07/20/24 11:32 O2 Flow Rate 5 07/20/24 11:32 FiO2 35 07/18/24 10:32 07/20/24 07/20/2424 06:59 14:59 22:59 Intake Total 2480 / 3863.916 675 / 675 Output Total 500 / 3000 3000 / 3000 Balance 1980 / 863.916 -2325 / -2325 Weight last 48 hrs Weight 96.797 kg Weight 100 kg Physical Exam 2 Const: COMMON NORMALS: no acute distress and patient oriented x3 OTHER: Very agitated, sitting up in a chair, on 6 L Resp: COMMON NORMALS: normal respiratory effort, No retractions and No use of accessory muscles AUSCULTATION: crackles and wheezes Cardio: COMMON NORMALS: regular rate, regular rhythm, S1 normal heart sound present and S2 normal heart sound present RATE: regular rate RHYTHM: r egular rhythm HEART SOUNDS: S1 normal heart sound present and S2 normal heart sound present GI: COMMON NORMALS: Normal to inspection, nondistended, normoactive bowel sounds present and non-tender Extremity: NARRATIVE EXTREMITY EXAM: 2+ pitting edema Neuro: COMMON NORMALS: patient oriented x3 Psych: COMMON NORMALS: mental status grossly normal Urinary Catheter Management: Knight: Cath Placed During This Visit: yes Reason for Continuing Indwelling Catheter: Other Urinary Catheter Date of Insertion: 07/14/24 Urinary Catheter Time of Insertion: 19:00 Data 07/20/24 05:56 07/20/24 05:56 Micro: Microbiology 07/18/24 21:00 Gram Stain - Final Sputum - Expectorated Sputum Sputum Culture - Preliminary 07/18/24 21:00 Urine Culture - Final Urine Catheterized 07/18/24 17:55 Blood Culture - Preliminary Blood NEGATIVE TO DATE 07/18/24 18:05 Blood Culture - Preliminary Blood NEGATIVE TO DATE A&P Assessment and plan (1) Acute respiratory failure with hypoxia: (2) Pneumonia: (3) Acute exacerbation of CHF (congestive heart failure): (4) COPD exacerbation: (5) Acute on chronic respiratory failure with hypoxia and hypercapnia: (6) Septic shock: Plan Acute hypoxic hypercarbic respiratory failure -Multifactorial -From pneumonia -Sputum culture showing Moraxella -CT scan showing CT/CT chest wo con [id number] IMPRESSION: 1. Small right pleural effusion with adjacent compressive atelectasis and/or pneumonia. In combination with severe cardiomegaly, findings are consistent with congestive heart failure. 2. There are emphysematous changes in the lungs. -Endotracheal aspirate growing Moraxella -COPD exacerbation -CHF exacerbation systolic and diastolic, CT scan findings as above, elevated BNP at 1500 -Extubated to nasal cannula 07/18/2024 Plan -Currently on Zyprexa for agitation -2 doses of IV Lasix today, for fluid overload -Continue Zyvox, Zosyn, -De-escalate to prednisone 40 mg daily tomorrow -continue DuoNeb -Protonix for GI prophylaxis -Eliquis for DVT prophylaxis CHF -Diuresis as above -Continues to have fluid overload, 2+ pitting edema Agitation -Add Zyprexa 5 mg twice daily -Haldol as needed for agitation -Ativan as needed for agitation History of severe COPD Anasarca -Likely secondary to CHF -Diuresis as above Septic shock, resolved -Septic shock was not present on admission -From pneumonia -Continue to wean off Levophed -Maintain MAP greater than 65 -Follow culture results Persistent fevers, resolving -Repeat blood cultures -Repeat urine cultures -Sputum cultures -Respiratory viral panel within normal limits NSTEMI -Type I versus type II -Continue to monitor closely A-fib -A-fib with RVR, continue amiodarone drip transitioned to p.o. amiodarone -Continue Eliquis therapy Deconditioning, PT OT, speech therapy eval Speech therapy eval, spoke to speech therapy, patient will be dysphagia level 5 diet, mildly thickened acute encephalopathy, resolving -Head CT no acute findings -Now agitated Full code -Eliquis for DVT prophylaxis Attestations 2 Medical Necessity Statement*: Patient requires hospitalization for acute hypoxic respiratory failure secondary to pneumonia, CHF Diagnoses Acute respiratory failure with hypoxia J96.01 Pneumonia J18.9 Acute exacerbation of CHF (congestive heart failure) I50.9 COPD exacerbation J44.1 Acute on chronic respiratory failure with hypoxia and hypercapnia J96.21; J96.22 Septic shock A41.9; R65.21
--- NOTE | 2024-07-20 17:09 | PC.NURSE ---
During this nurses shift the patient has become increasingly disrespectful towards nursing staff. The patient has asked for thin liquids and a regular diet and Dr. Zapata was not willing to change the diet due to risk for aspiration. This nurse has verbally deescalated the patient several times throughout shift. This nurse has reeducated patient on what Dr. Zapata's orders were and treatment and if he is unwilling to follow the orders he is at risk of aspiration or . The patient has been made aware of his right to leave AMA and what that means for him medically if he does so. Patient states, I am not leaving against medical advice. I am going to stay here and raise hell until the doctor changes my orders. Patient has stated, I will refuse medications if my orders do not get changed. A copy of the patient's rights and responsibilities were given to the patient.
[2024-07-20 17:18] LABS: Glucose Point of Care 159 mg/dL (70-110)
[2024-07-20 20:45] LABS: Glucose Point of Care 172 mg/dL (70-110)
[2024-07-20] MEDS: potassium chloride ER 20 mEq Tablet PO (22:56)
[2024-07-21] VITALS (16 sets, daily range): BP systolic 90–121; BP diastolic 60–79; PULSE 60–135; RESP 17–22; TEMP 36.2–36.7; O2SAT 90–98
--- NOTE | 2024-07-21 01:47 | PC.NURSE ---
AGGRESSIVE OUTBURST this telegraphic typewriter repairer entered pt room to administer scheduled IV ABX. pt was resting with eyes closed, and this telegraphic typewriter repairer lightly touched the arm of the pt to waken him and get wristband to scan and get name and . pt had been lying left lateral in bed and quickly flipped supine in bed and yelled, why the fuck did you wake me up, don't you ever wake me the fuck up! this telegraphic typewriter repairer apologized to the pt and explained that there were scheduled ABX that needed to be administered, to which the pt screamed at an even louder octave, I'm not sick enough to be woken up for some stupid fucking meds. If I'm asleep you don't wake me up. Get THE FUCK OUT OF MY ROOM, NOW! . telegraphic typewriter repairer stepped out of the room to meet charge nurse YI Laird at the door who had been waiting standby if needed d/t pt outburst and aggression. telegraphic typewriter repairer called NOC hospitalist Dr. Lawler and informed him of pt behavior and refusal of medication administration. Dr. Lawler advised to give pt a couple of hours to calm down and try again, also advised that if the pt became agitated again to give pt haldol 5mg IVP instead of the IM haldol order that was active on pt PRN MAR list to avoid further exacerbation of his volatile behavior due to being stuck with a needle.
[2024-07-21] MEDS: LORazepam 2 mg/mL INJ 1 mL 1 MG IVP ×4 (02:03→20:09)
[2024-07-21] MEDS: piperacillin-tazobactam 3.375 GM in sodium chloride 0.9% (plus) 50 ML IV ×3 (02:04→17:43)
[2024-07-21] MEDS: linezolid premix 600 MG/300 ML PREMIX 300 MG IV ×2 (02:04→12:58)
[2024-07-21 03:53] LABS: Basophils % 0.1 %; Hematocrit 44.7 % (37-53); Lymphocytes # 0.4 10^3/uL (0.8-4.8); Lymphocytes % 3.7 %; Mean Corpuscular HGB Conc 31.1 g/dL (30-55); Mean Corpuscular Hemoglobin 27.1 pg (27-33); Mean Corpuscular Volume 87.3 fl (82-101); Mean Platelet Volume 9.8 fL (7.4-10.4); Monocytes # 0.6 10^3/uL (0.2-0.9); Monocytes % 5.4 %; Neutrophils # 10.05 10^3/uL (1.8-7.7); Neutrophils % 90.4 %; Nucleated Red Blood Cells % 0 %; Platelet Count 229 10^3/cmm (157-399); Red Blood Count 5.12 10^6/uL (3.85-5.65); Red Cell Distribution Width 14.6 % (12.1-15.1); White Blood Count 11.12 10^3/uL (3.29-11.43)
[2024-07-21 04:18] LABS: Alanine Aminotransferase 22 U/L (0-41); Albumin Level 2.8 g/dL (3.5-5.2); Alkaline Phosphatase 72 U/L (40-130); Anion Gap 9.9 (5-19); Aspartate Amino Transferase 34 U/L (0-40); Blood Urea Nitrogen 32 mg/dL (8-23); Calcium 8.4 mg/dL (8.5-10.5); Chloride 86 mmol/L (98-107); Creatinine Clr Calc Pharmacy 80.7564; Globulin 2.7 g/dL (1.3-4.6); Glomerular Filtration Rate 67.2 mL/min (90-130); Glucose 145 mg/dL (65-115); Magnesium 1.5 mg/dL (1.7-2.3); Osmolality Calculated 301 mOsm/kg (285-295); Phosphorus 2.3 mg/dL (2.5-4.5); Sodium 141 mmol/L (136-145); Total Bilirubin 0.5 mg/dL (0.15-1.2); Total Protein 5.5 g/dL (6.6-8.7)
[2024-07-21 04:27] LABS: Carbon Dioxide 48 mmol/L (22-29); Potassium 2.9 mmol/L (3.5-5.1)
[2024-07-21] MEDS: morphine 4 mg/mL SDV 1 mL 2 MG IVP ×4 (05:55→20:09)
[2024-07-21] MEDS: buPROPion XL (24 HR) 150 mg Tablet PO (05:55)
[2024-07-21] MEDS: potassium chloride ER 20 mEq Tablet PO (05:55)
[2024-07-21] MEDS: magnesium sulfate premix 2 GM/50 ML PIGGYBACK IV (05:56)
[2024-07-21] MEDS: budesonide 0.5 mg/2 mL Neb INHALATION (08:19)
[2024-07-21] MEDS: ipratropium-albuterol 3 mL Neb INHALATION ×3 (08:19→16:18)
[2024-07-21] MEDS: predniSONE 20 mg Tablet 40 MG PO (10:01)
[2024-07-21] MEDS: apixaban 5 mg Tablet PO ×2 (10:01→17:42)
[2024-07-21] MEDS: nicotine 21 mg Patch 1 PATCH TRANSDERMA (10:01)
[2024-07-21] MEDS: amiodarone 200 mg Tablet 400 MG PO ×2 (10:02→17:42)
[2024-07-21] MEDS: pantoprazole DR 40 mg Tablet PO (10:03)
[2024-07-21] MEDS: insulin lispro 100 unit/1 mL SUBCUT ×2 (10:03→17:42)
[2024-07-21] MEDS: OLANZapine 5 mg ODT PO ×2 (10:03→17:42)
[2024-07-21] MEDS: potassium phosphate (mEq K) 40 MEQ in sodium chloride 0.9% (100 ml) 100 ML 27.27 MEQ IV (10:07)
[2024-07-21 11:13] LABS: Glucose Point of Care 103 mg/dL (70-110)
[2024-07-21 16:52] LABS: Glucose Point of Care 230 mg/dL (70-110)
--- NOTE | 2024-07-21 16:57 | P.PN_ITS ---
Subjective 2 Subjective: Patient was seen this morning, he is alert to person, place, not to time, he follows commands he tells me he feels better this morning, he tells me that his legs have looked the best they have ever looked, his strength is improving, he tells me that he is awaiting speech therapy evaluation so we can advance his diet, I advised him that speech therapy might not work the weekend, we will wait for their full assessment before advancing his diet as he has increased risk of aspiration pneumonia, aspiration pneumonitis, morbidity mortality associated especially was on the ventilator for a couple of days, I want him to overall do well, I want him to eventually get discharged from the hospital and thrive at home, he voices understanding but at the end of our discussion becomes very agitated that I am not advancing his diet, but I am able to reason with him that this is for his best interest, Vitals/I&O/Wt Last Vital Signs Temp 97.1 F L 07/21/24 11:30 Pulse 109 H 07/21/24 16:00 Resp 18 07/21/24 16:00 BP 108/69 07/21/24 16:00 Pulse Ox 91 07/21/24 16:00 O2 Del Method Nasal Cannula 07/21/24 16:00 O2 Flow Rate 6 07/21/24 16:00 FiO2 35 07/18/24 10:32 07/21/24 07/21/24 07/21/24 06:59 14:59 22:59 Intake Total 400 / 1336 601.6878 / 748.5106 Output Total 4000 / 8650 Balance -3600 / -7095 748.5106 / 748.5106 Weight last 48 hrs Weight 96.797 kg Weight 96.797 kg Physical Exam 2 Const: COMMON NORMALS: no acute distress and patient oriented x3 Resp: COMMON NORMALS: normal respiratory effort, No retractions, No use of accessory muscles and clear to auscultation bilaterally AUSCULTATION: clear to auscultation bilaterally Cardio: COMMON NORMALS: regular rate, regular rhythm, S1 normal heart sound present and S2 normal heart sound present RATE: regular rate RHYTHM: r egular rhythm HEART SOUNDS: S1 normal heart sound present and S2 normal heart sound present GI: COMMON NORMALS: Normal to inspection, nondistended, normoactive bowel sounds present and non-tender Extremity: NARRATIVE EXTREMITY EXAM: 1+ edema Neuro: COMMON NORMALS: patient oriented x3 Psych: COMMON NORMALS: mental status grossly normal Urinary Catheter Management: Knight: Cath Placed During This Visit: yes Reason for Continuing Indwelling Catheter: Other Urinary Catheter Date of Insertion: 07/14/24 Urinary Catheter Time of Insertion: 19:00 Data 07/21/24 02:51 07/21/24 02:51 Micro: Microbiology 07/18/24 21:00 Gram Stain - Final Sputum - Expectorated Sputum Sputum Culture - Final 07/18/24 18:05 Blood Culture - Preliminary Blood Staphylococcus epidermidis A&P Assessment and plan (1) Acute respiratory failure with hypoxia: (2) Pneumonia: (3) Acute exacerbation of CHF (congestive heart failure): (4) COPD exacerbation: (5) Acute on chronic respiratory failure with hypoxia and hypercapnia: (6) Septic shock: (7) Staphylococcus epidermidis bacteremia: (8) Aspiration into respiratory tract: Plan Acute hypoxic hypercarbic respiratory failure -Multifactorial -From pneumonia -Sputum culture showing Moraxella -CT scan showing CT/CT chest wo con [id number] IMPRESSION: 1. Small right pleural effusion with adjacent compressive atelectasis and/or pneumonia. In combination with severe cardiomegaly, findings are consistent with congestive heart failure. 2. There are emphysematous changes in the lungs. -Endotracheal aspirate growing Moraxella -COPD exacerbation -CHF exacerbation systolic and diastolic, CT scan findings as above, elevated BNP at 1500 -Extubated to nasal cannula 07/18/2024 -He is -5 L today, 1+ pitting edema -Currently on 6 L Plan -Currently on Zyprexa for agitation - hold off on Lasix for today -Continue Zyvox, Zosyn, -prednisone 40 mg daily tomorrow -continue DuoNeb -Protonix for GI prophylaxis -Eliquis for DVT prophylaxis Staph epidermidis bacteremia -Seen in 1 out of 4 blood cultures -Patient does have a right femoral central catheter in place -Will remove right femoral central catheter, culture tip -Repeat blood cultures -Continue Zyvox as above CHF -Diuresis as above Agitation -Add Zyprexa 5 mg twice daily -Haldol as needed for agitation -Ativan as needed for agitation History of severe COPD Anasarca -Likely secondary to CHF -Diuresis as above Septic shock, resolved -Septic shock was not present on admission -From pneumonia -Continue to wean off Levophed -Maintain MAP greater than 65 -Follow culture results Persistent fevers, resolving -Repeat blood cultures -Repeat urine cultures -Sputum cultures -Respiratory viral panel within normal limits NSTEMI -Type I versus type II -Continue to monitor closely A-fib -A-fib with RVR, continue amiodarone drip transitioned to p.o. amiodarone -Continue Eliquis therapy Deconditioning, PT OT, speech therapy eval Aspiration into airway During my multiple evaluations, initially when patient was extubated he would have repeated choking and coughing episodes -Highly suspicious for aspiration -Speech therapy eval, spoke to speech therapy, patient will be dysphagia level 5 diet, mildly thickened -Will advance diet based on speech therapy's recommendation -Aspiration precautions acute encephalopathy, resolving -Head CT no acute findings Physical deconditioning, PT OT Full code -Eliquis for DVT prophylaxis Attestations 2 Medical Necessity Statement*: Patient requires hospitalization for acute respiratory failure, pneumonia, fluid overload now with Staph epidermidis bacteremia, aspiration to airway Diagnoses Acute respiratory failure with hypoxia J96.01 Pneumonia J18.9 Acute exacerbation of CHF (congestive heart failure) I50.9 COPD exacerbation J44.1 Acute on chronic respiratory failure with hypoxia and hypercapnia J96.21; J96.22 Septic shock A41.9; R65.21 Staphylococcus epidermidis bacteremia R78.81; B95.7 Aspiration into respiratory tract T17.908A
--- NOTE | 2024-07-21 17:38 | PC.NURSE ---
Pt has been very adamant on not complying with his fluid restriction of 1500 mL.
[2024-07-21 20:29] LABS: Glucose Point of Care 131 mg/dL (70-110)
--- NOTE | 2024-07-21 22:19 | ECG_ITS ---
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 Measurements Intervals [place] Rate: 107 P: 0 [place]: 0 QRS: 44 QRSD: 118 T: -4 QT: 348 QTc: 466 Interpretive Statements ATRIAL FIBRILLATION WITH RAPID VENTRICULAR RESPONSE LOW QRS VOLTAGE IN PRECORDIAL LEADS [QRS DEFLECTION < 1.0 mV IN CHEST LEADS] INCOMPLETE RIGHT BUNDLE BRANCH BLOCK [90+ ms QRS DURATION, TERMINAL R IN V1/V2, 40+ ms S IN I/aVL/V4/V5/V6] POSSIBLE ANTERIOR MYOCARDIAL INFARCTION , PROBABLY OLD [30 ms Q WAVE IN V3/V4, OR R < 0.2 mV IN V4] ABNORMAL RHYTHM ECG Compared to ECG 07/16/2024 11:07:09 Low QRS voltage now present Incomplete right bundle-branch block now present Right bundle-branch block no longer present Myocardial infarct finding still present Electronically Signed On 07-23-2024 00:07:11 CDT by Tino Lowery M.D. [email or web address]
[2024-07-21] MEDS: metoprolol tartrate 25 mg Tablet PO ×2 (22:45→23:04)
[2024-07-21] MEDS: metoprolol tartrate 1 mg/1 mL SDV 5 mL 5 MG IVP (23:14)
[2024-07-22] VITALS (9 sets, daily range): BP systolic 96–120; BP diastolic 63–86; PULSE 77–117; RESP 15–21; TEMP 36.4–37; O2SAT 94–96
[2024-07-22] MEDS: linezolid premix 600 MG/300 ML PREMIX 300 MG IV ×2 (02:08→13:43)
[2024-07-22 02:25] LABS: Glucose Point of Care 208 mg/dL (70-110)
[2024-07-22] MEDS: piperacillin-tazobactam 3.375 GM in sodium chloride 0.9% (plus) 50 ML IV ×2 (03:16→10:15)
[2024-07-22 04:15] LABS: Basophils % 0.1 %; Eosinophils % 0.1 %; Hematocrit 48.3 % (37-53); Lymphocytes # 0.5 10^3/uL (0.8-4.8); Lymphocytes % 3.7 %; Mean Corpuscular Hemoglobin 27.5 pg (27-33); Mean Corpuscular Volume 91.7 fl (82-101); Mean Platelet Volume 9.4 fL (7.4-10.4); Monocytes # 0.6 10^3/uL (0.2-0.9); Monocytes % 4.6 %; Neutrophils # 12.68 10^3/uL (1.8-7.7); Nucleated Red Blood Cells % 0 %; Platelet Count 233 10^3/cmm (157-399); Red Blood Count 5.27 10^6/uL (3.85-5.65); Red Cell Distribution Width 14.7 % (12.1-15.1); White Blood Count 13.93 10^3/uL (3.29-11.43)
[2024-07-22 04:43] LABS: Alanine Aminotransferase 35 U/L (0-41); Albumin Level 3.2 g/dL (3.5-5.2); Alkaline Phosphatase 91 U/L (40-130); Anion Gap 6.3 (5-19); Aspartate Amino Transferase 46 U/L (0-40); Blood Urea Nitrogen 30 mg/dL (8-23); Calcium 8.4 mg/dL (8.5-10.5); Chloride 93 mmol/L (98-107); Creatinine Clr Calc Pharmacy 74.0267; Globulin 2.7 g/dL (1.3-4.6); Glomerular Filtration Rate 60.8 mL/min (90-130); Glucose 114 mg/dL (65-115); Osmolality Calculated 303 mOsm/kg (285-295); Phosphorus 3.3 mg/dL (2.5-4.5); Potassium 4.3 mmol/L (3.5-5.1); Sodium 143 mmol/L (136-145); Total Bilirubin 0.5 mg/dL (0.15-1.2); Total Protein 5.9 g/dL (6.6-8.7)
[2024-07-22 04:47] LABS: Carbon Dioxide 48 mmol/L (22-29)
[2024-07-22 06:26] LABS: Glucose Point of Care 105 mg/dL (70-110)
[2024-07-22] MEDS: loperamide 2 mg Capsule PO ×3 (06:30→23:28)
[2024-07-22] MEDS: buPROPion XL (24 HR) 150 mg Tablet PO (06:30)
[2024-07-22] MEDS: budesonide 0.5 mg/2 mL Neb INHALATION (08:10)
[2024-07-22] MEDS: ipratropium-albuterol 3 mL Neb INHALATION ×3 (08:10→15:58)
[2024-07-22] MEDS: predniSONE 20 mg Tablet 40 MG PO (10:12)
[2024-07-22] MEDS: amiodarone 200 mg Tablet 400 MG PO ×2 (10:13→18:09)
[2024-07-22] MEDS: apixaban 5 mg Tablet PO ×2 (10:13→18:09)
[2024-07-22] MEDS: potassium chloride ER 20 mEq Tablet PO ×2 (10:13→18:09)
[2024-07-22] MEDS: pantoprazole DR 40 mg Tablet PO (10:13)
[2024-07-22] MEDS: OLANZapine 5 mg ODT PO ×2 (10:14→23:28)
[2024-07-22] MEDS: bumetanide 1 mg Tablet PO ×2 (10:14→18:09)
[2024-07-22] MEDS: nicotine 21 mg Patch 1 PATCH TRANSDERMA (10:14)
--- NOTE | 2024-07-22 11:36 | PC.NURSE ---
This morning patient had the call light on. He began banging his call light on the table and yelling out and cussing. This nurse along with Elizabeth RICHMOND entered the room to help patient. Patient yelled at us and cussed us out and told us that we keep ignoring him. We take 45 minutes to answer his call light and he shit his pants because of us . Patient then got out of his chair and was pulling his IV line and oxygen and catheter trying to go to the bathroom. Elizabeth and I were trying to untangle him and help him to the bathroom all while he continues to yell and cuss. Patient then told us to clean up his shit because that's what we got paid to do . He then yelled and told us to call speech therapy. This nurse explained that speech therapy was already gone for the day. That they do not usually work on but she was doing him a favor by coming to see him. Patient then yelled you're lying to me. That's all you do is lie. Call her right now! Patient then proceeded to get up off the toilet and push his way to the door. Patient said he was going to find the speech therapist himself. I told the patient he was currently pooping in the floor and he could not go into the hallway like that. After much redirection, patient went back into the bathroom. Elizabeth and I proceeded to clean him up along with his room. Security was notified that patient was acting this way. Security just came to the floor and contacted PAM Bear. PAM called the patient via speaker phone with personnel security specialist Elizabeth May RN, and myself Jed RICHMOND in the room. PAM told the patient that he could not treat the nursing staff this way. PAM explained to the patient that he will not tolerate this kind of behavior and if he proceeds to act this way RD will come to him. PAM explained that patient did not need to bend over backwards for nursing staff, but simply not yell, cuss, beat the call light, and treat us the way he has been. Patient agreed at this time. PAM contacted nursing staff and stated if patient did not comply to contact him again.
[2024-07-22 12:06] LABS: Glucose Point of Care 110 mg/dL (70-110)
--- NOTE | 2024-07-22 16:31 | P.PN_ITS ---
Subjective 2 Subjective: - Woke to speech therapy this morning, dorinda dinero continues to have episodes of coughing, on thin liquids, recommended mildly thick liquids, advance to dysphagia level 6 diet, agreed with plan -Patient was seen this morning, he is se en in the room using the Y[employer]er to suck up his mucus secretions, -I discussed with him that he is high ri sk of aspiration, and obesity and mentality associated, and he has to stick to our plan he tells me that he does not care, he wants to eat what he likes -I advised that I had a discussion with speech therapy will try again tomorrow, do a speech therapy eval -Discussed his significant deconditionin g, he is going to need to participate with PT OT -Continue IV antibiotics for today and d e-escalate him to p.o. antibiotics tomorrow -P.o. diuresis today -Discussed the staphylococcal bacteremia , 1 out of 4 cultures positive, will have to watch him as inpatient to ensure that his repeat blood cultures are negative, his right femoral line was removed, catheter tip cultured, we will have to monitor his cultures, he might require IV antibiotics based on his clinical progress -Discussed plan on possible discharge in the next 24 to 48 hours based on his clinical progress would recommend rehab, -He tells me he is going to leave whenev er he wants, discussed morbidity and mortality associated with leaving the hospital AGAINST MEDICAL ADVICE, he voiced understanding, all consents are tells me that he does not care he is good to leave whenever he wants, he is going to eat what ever he wants, he is going to do what ever he wants Vitals/I&O/Wt Last Vital Signs Temp 98.0 F 07/22/24 12:00 Pulse 96 07/22/24 16:00 Resp 18 07/22/24 16:00 BP 96/63 07/22/24 12:00 Pulse Ox 95 07/22/24 16:00 O2 Del Method Nasal Cannula 07/22/24 16:00 O2 Flow Rate 6 07/22/24 16:00 FiO2 35 07/18/24 10:32 07/22/24 07/22/24 07/22/24 06:59 14:59 22:59 Intake Total 325 / 3018.5106 290 / 290 350 / 640 Output Total 650 / 3000 Balance -325 / 18.5106 290 / 290 350 / 640 Weight last 48 hrs Weight 97.154 kg Weight 96.797 kg Physical Exam 2 Const: COMMON NORMALS: no acute distress and patient oriented x3 Resp: COMMON NORMALS: normal respiratory effort, No retractions and No use of accessory muscles AUSCULTATION: wheezes Cardio: COMMON NORMALS: regular rate, regular rhythm, S1 normal heart sound present and S2 normal heart sound present RATE: regular rate RHYTHM: r egular rhythm HEART SOUNDS: S1 normal heart sound present and S2 normal heart sound present GI: COMMON NORMALS: Normal to inspection, nondistended, normoactive bowel sounds present and non-tender Extremity: NARRATIVE EXTREMITY EXAM: 1+ edema Neuro: COMMON NORMALS: patient oriented x3 Psych: COMMON NORMALS: mental status grossly normal Urinary Catheter Management: Knight: Cath Placed During This Visit: yes, but has since been removed by the nurse Reason for Continuing Indwelling Catheter: Decision to DC Catheter Urinary Catheter Date of Insertion: 07/14/24 Urinary Catheter Time of Insertion: 19:00 Date Urinary Catheter Removed: 07/22/24 Time Urinary Catheter Discontinued: 14:00 Data 07/22/24 03:21 07/22/24 03:21 Micro: Microbiology 07/21/24 18:45 Catheter Tip Culture - Preliminary Arterial Line 07/21/24 18:26 Blood Culture - Preliminary Blood SPECIMEN COLLECTED 07/21/24 18:20 Blood Culture - Preliminary Blood SPECIMEN COLLECTED 07/18/24 21:00 Gram Stain - Final Sputum - Expectorated Sputum Sputum Culture - Final A&P Assessment and plan (1) Acute respiratory failure with hypoxia: (2) Pneumonia: (3) Acute exacerbation of CHF (congestive heart failure): (4) COPD exacerbation: (5) Acute on chronic respiratory failure with hypoxia and hypercapnia: (6) Septic shock: (7) Staphylococcus epidermidis bacteremia: (8) Aspiration into respiratory tract: Plan Acute hypoxic hypercarbic respiratory failure -Multifactorial -From pneumonia -Sputum culture showing Moraxella -CT scan showing CT/CT chest wo con [id number] IMPRESSION: 1. Small right pleural effusion with adjacent compressive atelectasis and/or pneumonia. In combination with severe cardiomegaly, findings are consistent with congestive heart failure. 2. There are emphysematous changes in the lungs. -Endotracheal aspirate growing Moraxella -COPD exacerbation -CHF exacerbation systolic and diastolic, CT scan findings as above, elevated BNP at 1500 -Extubated to nasal cannula 07/18/2024 -He is -5 L today, 1+ pitting edema -Currently on 6 L Plan -Start Bumex 1 mg p.o. twice daily -Continue Zyvox, de-escalate to Augmentin -prednisone 40 mg daily -continue DuoNeb -Protonix for GI prophylaxis -Eliquis for DVT prophylaxis Staph epidermidis bacteremia -Seen in 1 out of 4 blood cultures -Patient does have a right femoral central catheter in place -Status post removal of right femoral central catheter, culture tip pending -Repeat blood cultures pending -Continue Zyvox as above CHF -Diuresis as above Agitation - Zyprexa 5 mg at bedtime -Ativan as needed for agitation History of severe COPD Anasarca -Likely secondary to CHF -Diuresis as above Septic shock, resolved -Septic shock was not present on admission -From pneumonia -Continue to wean off Levophed -Maintain MAP greater than 65 -Follow culture results Persistent fevers, resolving -Repeat blood cultures -Repeat urine cultures -Sputum cultures -Respiratory viral panel within normal limits NSTEMI -Type I versus type II -Continue to monitor closely A-fib -A-fib with RVR, continue amiodarone drip transitioned to p.o. amiodarone -Continue Eliquis therapy Deconditioning, PT OT, speech therapy eval Aspiration into airway During my multiple evaluations, initially when patient was extubated he would have repeated choking and coughing episodes -Highly suspicious for aspiration -Speech therapy eval, spoke to speech therapy, patient will be dysphagia level 6 diet, mildly thickened -Will advance diet based on speech therapy's recommendation -Aspiration precautions acute encephalopathy, resolving -Head CT no acute findings Physical deconditioning, PT OT Full code -Eliquis for DVT prophylaxis Attestations 2 Medical Necessity Statement*: Patient requires hospitalization for respiratory failure, pneumonia, CHF, staphylococcal bacteremia, aspiration airway Diagnoses Acute respiratory failure with hypoxia J96.01 Pneumonia J18.9 Acute exacerbation of CHF (congestive heart failure) I50.9 COPD exacerbation J44.1 Acute on chronic respiratory failure with hypoxia and hypercapnia J96.21; J96.22 Septic shock A41.9; R65.21 Staphylococcus epidermidis bacteremia R78.81; B95.7 Aspiration into respiratory tract T17.908A
[2024-07-22 16:44] LABS: Glucose Point of Care 198 mg/dL (70-110)
[2024-07-22] MEDS: insulin lispro 100 unit/1 mL SUBCUT (18:08)
[2024-07-22] MEDS: nystatin powder 15 gm Btl 1 APPLIC TOPICAL (18:09)
[2024-07-22 20:30] LABS: Glucose Point of Care 166 mg/dL (70-110)
[2024-07-23] VITALS: BP 124/87; PULSE 98; RESP 20; TEMP 37; O2SAT 97
[2024-07-23] MEDS: LORazepam 2 mg/mL INJ 1 mL 1 MG IVP (03:35)
[2024-07-23] MEDS: loperamide 2 mg Capsule PO (03:35)
[2024-07-23 04:00] VITALS: BP 122/87; PULSE 103; RESP 20; TEMP 36.6; O2SAT 95
[2024-07-23 04:53] LABS: Basophils % 0.1 %; Eosinophils % 0.1 %; Hematocrit 47.6 % (37-53); Lymphocytes # 0.7 10^3/uL (0.8-4.8); Lymphocytes % 4.5 %; Mean Corpuscular HGB Conc 30.3 g/dL (30-55); Mean Corpuscular Hemoglobin 27.6 pg (27-33); Mean Corpuscular Volume 91.4 fl (82-101); Mean Platelet Volume 9.4 fL (7.4-10.4); Monocytes # 0.4 10^3/uL (0.2-0.9); Monocytes % 2.9 %; Neutrophils % 91.8 %; Nucleated Red Blood Cells % 0 %; Platelet Count 235 10^3/cmm (157-399); Red Blood Count 5.21 10^6/uL (3.85-5.65); Red Cell Distribution Width 14.8 % (12.1-15.1); White Blood Count 15.02 10^3/uL (3.29-11.43)
[2024-07-23 05:12] LABS: Alanine Aminotransferase 38 U/L (0-41); Albumin Level 3.5 g/dL (3.5-5.2); Alkaline Phosphatase 92 U/L (40-130); Anion Gap 11.2 (5-19); Aspartate Amino Transferase 41 U/L (0-40); Blood Urea Nitrogen 35 mg/dL (8-23); C Reactive Protein 14.8 mg/L (0.0-4.9); Calcium 8.9 mg/dL (8.5-10.5); Chloride 93 mmol/L (98-107); Creatinine Clr Calc Pharmacy 98.8676; Globulin 2.5 g/dL (1.3-4.6); Glomerular Filtration Rate 84.7 mL/min (90-130); Glucose 115 mg/dL (65-115); Osmolality Calculated 309 mOsm/kg (285-295); Potassium 4.2 mmol/L (3.5-5.1); Sodium 145 mmol/L (136-145); Total Bilirubin 0.8 mg/dL (0.15-1.2)
[2024-07-23 05:23] LABS: NT Pro B Type Natriuretic Pept 2425 pg/mL (0-125)
[2024-07-23 05:29] LABS: Carbon Dioxide 45 mmol/L (22-29)
[2024-07-23] MEDS: buPROPion XL (24 HR) 150 mg Tablet PO (05:49)
[2024-07-23] MEDS: linezolid premix 600 MG/300 ML PREMIX 300 MG IV (05:49)
[2024-07-23 06:00] VITALS: PULSE 99
[2024-07-23 06:50] LABS: Glucose Point of Care 192 mg/dL (70-110)
[2024-07-23 08:00] VITALS: BP 109/77; PULSE 105; RESP 19; TEMP 36.4; O2SAT 96
[2024-07-23] MEDS: budesonide 0.5 mg/2 mL Neb INHALATION (08:19)
[2024-07-23] MEDS: ipratropium-albuterol 3 mL Neb INHALATION (08:19)
[2024-07-23 08:20] VITALS: O2SAT 95
[2024-07-23 08:21] VITALS: PULSE 103; RESP 18; O2SAT 95
--- NOTE | 2024-07-23 08:54 | PC.SOCIAL ---
IMM Updated Updated pt on IMM. No questions voiced. Provided pt a copy. Initialed, dated, & timed a copy & placed in chart
--- NOTE | 2024-07-23 13:23 | P.DS_ITS ---
Discharge Providers Date of Admission: 07/14/24 04:06 Date of Discharge: July 20, 2024 Attending Provider at Admission: Leesa Harvey MD Attending Provider at Discharge: Constantine Zapata MD Primary Care Provider: Sloan Arias MD Diagnoses at Discharge Discharge Diagnosis (1) Acute respiratory failure with hypoxia: Status: Resolved (2) Pneumonia: Status: Resolved (3) Acute exacerbation of CHF (congestive heart failure): Status: Resolved (4) COPD exacerbation: Status: Acute (5) Acute on chronic respiratory failure with hypoxia and hypercapnia: Status: Acute (6) Septic shock: Status: Inactive Reason for Visit Reason for Visit: leg sores, sob Hospital Course Hospital Course Patient left AGAINST MEDICAL ADVICE before I could see him 07/23/2024 This is a 63-year-old male with a past medical history of COPD, current smoker, hypertension, atrial fibrillation on Eliquis,'s CHF chronically on 6 L, who presents to [facility] for shortness of breath Patient had a prolonged and complicated hospital course please look at my last progress note for detail Patient was admitted to [facility] for acute hypoxic respiratory failure multifactorial from pneumonia, CHF exacerbation, COPD exacerbation. Patient required ICU admission, intubation and mechanical ventilation, broad- spectrum antibiotic therapy, steroid therapy, diuretic therapy. Overall patient clinically improved, extubated, to nasal cannula, moved to medical floors. Patient left AGAINST MEDICAL ADVICE 07/23/2024 before. I have sent to his pharmacy Augmentin therapy, prednisone burst, continue Bumex 1 mg p.o. twice daily. I have had multiple discussion with the patient to abstain from smoking, morbidity and mortality discussed, risk of worsening respiratory failure, CAD, risk of strokes, Patient's hospitalization was complicated with Staph epidermidis bacteremia, 1 out of 4 blood cultures positive, right femoral central line was removed, catheter tip cultured, cultures so far negative, repeat blood cultures negative so far, he was managed with IV antibiotics as inpatient. Patient left AGAINST MEDICAL ADVICE. Would recommend course of IV antibiotics, at least 2 to 6 weeks, however patient left AGAINST MEDICAL ADVICE, I have a sent 10 days of p.o. Zyvox to his pharmacy For his severe COPD, COPD exacerbation, Discussed with patient to stop smoking, sent a prednisone burst to his pharmacy First Moraxella pneumonia, discharged on augmentin as above For his systolic and diastolic CHF exacerbation, required inpatient diuresis, he should continue his home Bumex 1 mg p.o. twice daily at home, follow-up with primary care For his septic shock, requiring Levophed, resolved NSTEMI type I versus type II, follow-up with primary care left AGAINST MEDICAL ADVICE Patient had A-fib with RVR during his hospitalization, requiring amiodarone drip, transition to p.o. amiodarone, continue home amiodarone, continue home Eliquis For his significant deconditioning, PT OT as inpatient, recommend for patient to go to rehab, however patient is left AGAINST MEDICAL ADVICE Aspiration into airway During my multiple evaluations, initially when patient was extubated he would have repeated choking and coughing episodes -Highly suspicious for aspiration -Speech therapy constantine, spoke to speech therapy, patient will be dysphagia level 6 diet, mildly thickened -Will advance diet based on speech therapy's recommendation -Aspiration precautions -Patient left AGAINST MEDICAL ADVICE During my multiple conversations with patient's over multiple days through his hospitalization, with multiple nursing staff at bedside ? I had discussion with patient about the morbidity and mortality associated with his CHF, his COPD, his pneumonia, his Staph epidermidis bacteremia, aspiration into airway, his atrial fibrillation his NSTEMI -I recommended for him to follows medical recommendations, to stay as inpatient, receiv medical treatment, transfer for rehab, work with speech therapy, pt/ot -During my conversations with him, conversation with nursing staff, conversations with PT, conversations with speech therapy Gareth would become quite belligerent, would swear at us, bang on tables, scream at us -However during my multiple conversations patient would tell me he does not care what I had to tell him, he would leave AGAINST MEDICAL ADVICE, he would not follow our instructions at times -I had multiple discussions with him that he has a high risk of morbidity and mortality, high risk of , high risk of suffering, if he does not follow instructions if he leaves AGAINST MEDICAL ADVICE, however on multiple occasions he has told me he does not care -I had multiple full discussions with him that he has a high risk of , high risk of morbidity and mortality, including but not limited to if he does not follow instructions, does not comply with our plan, does not stay as inpatient, does not go to rehab, but patient on multiple occasions told me he does not care -I continue to have a high concern for him in terms of his COPD, CHF, Staph epidermidis bacteremia, aspiration into airway, NSTEMI, atrial fibrillation, CHF however patient has left AGAINST MEDICAL ADVICE -Ultimately at one point I told Gareth that given that he has had multiple prior hospitalizations of leaving AGAINST MEDICAL ADVICE and he is threatened multiple times during this hospitalization to leave AGAINST MEDICAL ADVICE and indeed lef t AGAINST MEDICAL ADVICE, that I think his overall prognosis is poor, that he has a high risk of morbidity and mortality, high risk of suffering, high risk of a poor quality of life, high risk of recurrent hospitalizations however he has told me multiple times that he does not care, he will not follow our instructions, he will do what he wants, Physical Exam Urinary Catheter Management: Knight: Cath Placed During This Visit: yes Reason for Continuing Indwelling Catheter: Other Urinary Catheter Date of Insertion: 07/14/24 Urinary Catheter Time of Insertion: 19:00 Discharge Data Studies Completed and Pending Completed Studies During Hospitalization Category Date Time Status CT abdomen pelvis wo con [id number] Routine Cat Scan 07/15/24 15:[address] chest wo con [id number] Routine Cat Scan 07/14/24 04:[address] head wo con* [id number] Stat Cat Scan 07/17/24 16:21 Completed XR chest 1V portable [id number] QAM Exams 07/15/24 06:00 Completed XR chest 1V portable [id number] QAM Exams 07/16/24 06:00 Completed XR chest 1V portable [id number] QAM Exams 07/17/24 06:00 Completed XR chest 1V portable [id number] Stat Exams 07/14/24 01:48 Completed XR chest 1V portable [id number] Stat Exams 07/14/24 19:05 Completed Pending at discharge Category Date Time Status Blood Culture Stat Lab 07/18/24 17:55 Results C.Diff PCR (Lab) Routine Lab 07/20/24 09:30 Received Complete Blood Count w/Auto AM LABS Lab 07/21/24 04:00 Ordered Complete Blood Count w/Auto AM LABS Lab 07/22/24 04:00 Ordered Comprehensive Metabolic Panel AM LABS Lab 07/21/24 04:00 Ordered Comprehensive Metabolic Panel AM LABS Lab 07/22/24 04:00 Ordered Magnesium AM LABS Lab 07/21/24 04:00 Ordered Magnesium AM LABS Lab 07/22/24 04:00 Ordered Phosphorus AM LABS Lab 07/21/24 04:00 Ordered Phosphorus AM LABS Lab 07/22/24 04:00 Ordered Sputum Culture and Gram Stain Stat Lab 07/18/24 21:00 Results Radiology Impressions Chest CT 07/14/24 04:25 IMPRESSION: 1. Small right pleural effusion with adjacent compressive atelectasis and/or pneumonia. In combination with severe cardiomegaly, findings are consistent with congestive heart failure. 2. There are emphysematous changes in the lungs. COMMENTS: The presence of pulmonary emphysema on CT is an independent risk factor for lung cancer. In the absence of a history or active diagnosis of lung cancer, it is recommended that this patient with emphysema be evaluated for enrollment in a low dose CT lung cancer screening program. Abdomen/Pelvis CT 07/15/24 15:58 IMPRESSION: 1. Question cystitis versus bladder mucosal crowding due to under distension. 2. Mild bloating without definitive bowel obstruction. 3. Severe anasarca, highly suspect cardiogenic etiology. Chest X-Ray 07/17/24 06:00 IMPRESSION: Distal ET tube projects 5.9 cm superior to the cem. Head CT 07/17/24 16:21 IMPRESSION: No acute intracranial abnormality. Laboratory Results WBC 11.46 10^3/uL (3.29-11.43) H 07/20/24 05:56 Corrected WBC Cancelled 07/17/24 03:27 RBC 5.17 10^6/uL (3.85-5.65) 07/20/24 05:56 Hgb 14.00 g/dL (11.27-16.99) 07/20/24 05:56 Hct 45.4 % (37-53) 07/20/24 05:56 MCV 87.8 fl (82-101) 07/20/24 05:56 MCH 27.1 pg (27-33) 07/20/24 05:56 MCHC 30.8 g/dL (30-55) 07/20/24 05:56 RDW 14.7 % (12.1-15.1) 07/20/24 05:56 Plt Count 228 10^3/cmm (157-399) 07/20/24 05:56 MPV 9.5 fL (7.4-10.4) 07/20/24 05:56 Gran % Cancelled 07/17/24 03:27 Neut % (Auto) 91.2 % 07/20/24 05:56 Lymph % (Auto) 3.0 % 07/20/24 05:56 [place] % (Auto) 5.4 % 07/20/24 05:56 Eos % (Auto) 0.0 % 07/20/24 05:56 Baso % (Auto) 0.1 % 07/20/24 05:56 Neut # (Auto) 10.46 10^3/uL (1.8-7.7) H 07/20/24 05:56 Lymph # (Auto) 0.3 10^3/uL (0.8-4.8) L 07/20/24 05:56 [place] # (Auto) 0.6 10^3/uL (0.2-0.9) 07/20/24 05:56 Eos # (Auto) 0.0 10^3/uL (0.0-0.8) 07/20/24 05:56 Baso # (Auto) 0.0 10^3/uL (0.0-0.1) 07/20/24 05:56 Absolute Gran (auto) Cancelled 07/17/24 03:27 Nucleated RBC % (auto) 0 % 07/20/24 05:56 Nucleated RBCs # 0.0 /100WBC 07/20/24 05:56 Specimen Type Arterial 07/18/24 04:00 Sample Site Radial, right 07/18/24 04:00 ABG pH 7.42 (7.35-7.45) 07/18/24 04:00 ABG pCO2 56.4 mmHg (35-45) H 07/18/24 04:00 ABG pO2 73.2 mmHg (80.0-100.0) L 07/18/24 04:00 ABG PO2/FiO2 Ratio 209 07/18/24 04:00 ABG HCO3 36.8 mmol/L (22-26) H 07/18/24 04:00 ABG O2 Saturation 88.6 07/17/24 04:50 ABG Base Excess 10.3 mmol/L (-2.0-2.0) H 07/18/24 04:00 Jacob Test Pos 07/18/24 04:00 A-a O2 Gradient 17.7 mmHg (5-10) H 07/17/24 04:50 Hematocrit 39.9 % (42-52) L 07/18/24 04:00 Hgb O2 Saturation 86.9 % (95-100) L 07/17/24 04:50 Carboxyhemoglobin 1.0 %THgb (0.4-20.1) 07/17/24 04:50 Methemoglobin 1.0 % (0.4-1.5) 07/17/24 04:50 Total Hemoglobin 14.1 g/dL (14-18) 07/17/24 04:50 Sodium 145.0 mmol/L (131-143) H 07/17/24 04:50 Potassium 3.4 mmol/L (3.5-5.0) L 07/17/24 04:50 Glucose 123.0 mg/dL (70-115) H 07/17/24 04:50 Ionized Calcium 1.2 mmol/L (1.1-1.4) 07/17/24 04:50 O2 Delivery Device Vent 07/18/24 04:00 O2 Liters/Min 6.0 % 07/14/24 02:15 FiO2 35.0 % 07/18/24 04:00 Tidal Volume 0.50 07/18/24 04:00 PEEP 5.0 cmH20 07/18/24 04:00 Concrete Worker ID [email or web address] 07/18/24 04:00 Sodium 143 mmol/L (136-145) 07/20/24 05:56 Potassium 3.3 mmol/L (3.5-5.1) L 07/20/24 05:56 Chloride 93 mmol/L (98-107) L 07/20/24 05:56 Carbon Dioxide 41 mmol/L (22-29) H 07/20/24 05:56 Anion Gap 12.3 (5-19) 07/20/24 05:56 BUN 39 mg/dL (8-23) H 07/20/24 05:56 Creatinine 1.4 mg/dL (0.7-1.2) H 07/20/24 05:56 GFR Calculation 50.9 mL/min (90-130) L 07/20/24 05:56 Glucose 126 mg/dL (65-115) H 07/20/24 05:56 POC Glucose 217 mg/dL (70-110) H 07/20/24 05:45 Calculated Osmolality 307 mOsm/kg (285-295) H 07/20/24 05:56 Lactic Acid 2.2 mmol/L (0.5-2.2) 07/14/24 02:12 Lactic Acid (Sepsis) 1.2 mmol/L (0.5-2.2) 07/14/24 05:11 Lactate 2.3 mmol/L (0.5-2.2) H 07/19/24 03:46 Calcium 8.4 mg/dL (8.5-10.5) L 07/20/24 05:56 Phosphorus 2.6 mg/dL (2.5-4.5) 07/20/24 05:56 Magnesium 1.5 mg/dL (1.7-2.3) L 07/20/24 05:56 Total Bilirubin 0.6 mg/dL (0.15-1.2) 07/20/24 05:56 AST 30 U/L (0-40) 07/20/24 05:56 ALT 19 U/L (0-41) 07/20/24 05:56 Alkaline Phosphatase 73 U/L (40-130) 07/20/24 05:56 Troponin T Baseline 45 ng/L (0-15) H 07/14/24 05:11 Troponin T 120 Minute 45.01 ng/L (0-15) H 07/14/24 06:54 Delta Troponin T 0.01 ABS# (0-10) 07/14/24 06:54 Troponin T Hi Sens 6Hr 41.58 ng/L (0-15) H 07/14/24 10:54 Troponin T Hi Sens 6Hr Delta -3.42 ng/L (0-12) L 07/14/24 10:54 C-Reactive Protein 7.5 mg/L (0.0-4.9) H 07/19/24 03:46 NT-Pro-B Natriuret Pep 3144 pg/mL (0-125) H 07/19/24 03:46 Total Protein 5.5 g/dL (6.6-8.7) L 07/20/24 05:56 Albumin 2.8 g/dL (3.5-5.2) L 07/20/24 05:56 Globulin 2.7 g/dL (1.3-4.6) 07/20/24 05:56 Procalcitonin 0.07 ng/mL (0-0.5) 07/19/24 03:46 TSH 1.76 uIU/mL (0.27-4.20) 07/14/24 22:43 Thyroxine (T4) 3.7 mcg/dL (4.9-10.5) L 07/14/24 02:12 Free T3 2.3 PG/ML (2.0-4.4) 07/14/24 02:12 Urine Color Yellow (Yellow) 07/14/24 04:46 Urine Appearance Clear (CLEAR) 07/14/24 04:46 Urine pH 5.5 (5-7) 07/14/24 04:46 Ur Specific [place] 1.013 (1.005-1.030) 07/14/24 04:46 Urine Protein 3+ (Negative) A 07/14/24 04:46 Urine Glucose (UA) Negative (Normal) 07/14/24 04:46 Urine Ketones Negative (Negative) 07/14/24 04:46 Urine Blood Negative (Negative) 07/14/24 04:46 Urine Nitrate Negative (Negative) 07/14/24 04:46 Urine Bilirubin Negative (Negative) 07/14/24 04:46 Urine Urobilinogen 1.0 mg/dL (Negative) 07/14/24 04:46 Ur Leukocyte Esterase Trace (Negative) A 07/14/24 04:46 Urine RBC 3-5 /hpf (0-2) 07/14/24 04:46 Urine WBC 11-20 /hpf (0-5) H 07/14/24 04:46 Ur Squamous Epith Cells 0-5 /hpf (0-5) 07/14/24 04:46 Amorphous Sediment Not Reportable 07/14/24 04:46 Urine Bacteria None seen /hpf (NONE) 07/14/24 04:46 Hyaline Casts 6.20 /lpf 07/14/24 04:46 Nasal MRSA (PCR) Not detected (Negative) 07/14/24 17:45 Urine Opiates Screen Negative ng/mL (Negative) 07/14/24 04:46 Ur Barbiturates Screen Negative ng/mL (Negative) 07/14/24 04:46 Ur Phencyclidine Scrn Negative ng/mL (Negative) 07/14/24 04:46 Ur Amphetamines Screen Positive ng/mL (Negative) H 07/14/24 04:46 U Benzodiazepines Scrn Negative ng/mL (Negative) 07/14/24 04:46 Urine Cocaine Screen Negative ng/mL (Negative) 07/14/24 04:46 U Marijuana (THC) Screen Negative ng/mL (Negative) 07/14/24 04:46 Ethyl Alcohol < 10 mg/dL (0-10) 07/14/24 02:12 Adenovirus (PCR) Not detected (NOT DETECT) 07/18/24 21:00 C. pneumoniae DNA (PCR) Not detected (NOT DETECT) 07/18/24 21:00 Coronavirus (PCR) Negative (Negative) 07/14/24 04:54 Coronavirus 229E (PCR) Not detected (NOT DETECT) 07/18/24 21:00 Human Metapneumovir PCR Not detected (NOT DETECT) 07/18/24 21:00 Influenza A (H1) PCR Not detected (NOT DETECT) 07/18/24 21:00 Influenza A (PCR) Negative (Negative) 07/14/24 04:54 Influ A (H1/09) PCR Not detected (NOT DETECT) 07/18/24 21:00 Influenza A (H3) PCR Not detected (NOT DETECT) 07/18/24 21:00 Influenza Type A (PCR) Not detected (NOT DETECT) 07/18/24 21:00 Influenza Type B (PCR) Not detected (NOT DETECT) 07/18/24 21:00 M. pneumoniae (PCR) Not detected (NOT DETECT) 07/18/24 21:00 Parainfluenza 1 (PCR) Not detected (NOT DETECT) 07/18/24 21:00 Parainfluenza 2 (PCR) Not detected (NOT DETECT) 07/18/24 21:00 Parainfluenza 3 (PCR) Not detected (NOT DETECT) 07/18/24 21:00 Parainfluenza 4 (PCR) Not detected (NOT DETECT) 07/18/24 21:00 RSV (PCR) Negative (Negative) 07/14/24 04:54 RSV Type A (PCR) Not detected (NOT DETECT) 07/18/24 21:00 RSV Type B (PCR) Not detected (NOT DETECT) 07/18/24 21:00 Entero/Rhino (PCR) Not detected (NOT DETECT) 07/18/24 21:00 SARS-CoV-2 (PCR) Not detected (NOT DETECT) 07/18/24 21:00 Vitals Last Vital Signs Temp 97.7 F 07/20/24 08:00 Pulse 76 07/20/24 08:26 Resp 22 H 07/20/24 08:26 BP 127/93 07/20/24 08:00 Pulse Ox 92 07/20/24 08:29 O2 Del Method Nasal Cannula 07/20/24 08:29 O2 Flow Rate 5 07/20/24 10:50 FiO2 35 07/18/24 10:32 Discharge Plan Discharge Patient Disposition: Left Against Medical Advice Condition: Stable Prescriptions: New prednisone 20 mg Tablet 40 mg PO DAILY 5 Days Qty: 10 0RF potassium chloride [Klor-Con M20] 20 mEq tablet,ER particles/crystals 20 meq PO BID 30 Days Qty: 60 0RF amoxicillin-pot clavulanate 875-125 mg tablet 1 tab PO BID 7 Days Qty: 14 0RF linezolid [Zyvox] 600 mg tablet 600 mg PO BID 14 Days Qty: 28 0RF Continued Eliquis 5 mg tablet 5 mg PO BID Qty: 180 1RF albuterol sulfate 2.5 mg /3 mL (0.083 %) solution for nebulization 2.5 mg inhalation Q6H PRN (Reason: shortness of breath or wheezing) Qty: 180 5RF Rx Instructions: to use while DuoNeb is unavailable ondansetron 4 mg tablet,disintegrating 4 mg PO Q8H PRN (Reason: nausea and vomiting) Qty: 60 1RF loperamide 2 mg capsule 2 mg PO Q6H PRN (Reason: loose stool) Qty: 30 0RF ipratropium-albuterol 0.5 mg-3 mg(2.5 mg base)/3 mL solution for nebulization 3 ml inhalation Q6H PRN (Reason: shortness of breath or wheezing) 30 Days Qty: 180 3RF tamsulosin 0.4 mg capsule 0.4 mg PO DAILY bumetanide 1 mg tablet 1 mg PO BID albuterol sulfate 90 mcg/actuation HFA aerosol inhaler 2 puff INHALATION Q6H PRN (Reason: Shortness Of Breath) bupropion HCl 150 mg tablet extended release 24 hr 150 mg PO QAM amiodarone 400 mg tablet 400 mg PO DAILY 30 Days Qty: 30 5RF Anoro Ellipta 62.5-25 mcg/actuation blister with device 1 inh inhalation DAILY metoprolol tartrate 50 mg tablet 25 mg PO BID Discontinued potassium chloride 10 mEq tablet extended release 20 meq PO DAILY Qty: 180 1RF mirabegron 25 mg tablet extended release 24 hr 25 mg PO DAILY Qty: 90 1RF No Action (DME) motorized electric scooter See Rx Instructions .Route .MEDSUPPLY Qty: 1 0RF Rx Instructions: As directed (DME) pulse oxymeter See Rx Instructions .Route .MEDSUPPLY Qty: 1 0RF Rx Instructions: As directed (DME) home fill oxygen concentrator See Rx Instructions .Route .MEDSUPPLY Qty: 1 0RF Rx Instructions: As directed, 6L NC (DME) Electric wheelchair See Rx Instructions .Route .MEDSUPPLY Qty: 1 0RF Rx Instructions: As directed Other Ambulatory Orders: DME: Walker (Order) Location: None Selected Ordered By: Constantine Zapata Referrals: [facility] [place] Sloan Arias MD [Primary Care Provider] - Discharge Diet: Cardiac Discharge Activity: Resume usual activity Discharge Attestations Time Spent in Discharge Care*: greater than 30 min Status at Discharge: Cognitive status at discharge: mildly impaired cognition , Behavioral status at discharge: can be uncooperative , Quality Metrics Clinical Quality Measures [ No reported AMI, CVA or VTE this stay] Coding Level of Care Code 61875 Total time (in minutes) for Discharge: 45 Diagnoses Acute respiratory failure with hypoxia J96.01 Pneumonia J18.9 Acute exacerbation of CHF (congestive heart failure) I50.9 COPD exacerbation J44.1 Acute on chronic respiratory failure with hypoxia and hypercapnia J96.21; J96.22 Septic shock A41.9; R65.21
== END 2024-07-23 09:40 | disposition left against medical advice (07) | DRG 208 ==
LOC: ER 04:13 → ICU 04:19 → MEDSURG 07-19 16:42
PROVIDERS: Student in an Organized Health Care Education/Training Program; Admitting Provider Student in an Organized Health Care Education/Training Program; Emergency Provider Emergency Medicine; PCP Family Medicine; Visit Provider Family Medicine
DX: J96.22 Acute and chronic respiratory failure with hypercapnia (principal); J18.9 Pneumonia, unspecified organism; I50.43 Acute on chronic combined systolic (congestive) and diastolic (congestive) heart failure; I21.4 Non-ST elevation (NSTEMI) myocardial infarction; A41.9 Sepsis, unspecified organism; R65.21 Severe sepsis with septic shock; J44.1 Chronic obstructive pulmonary disease with (acute) exacerbation; J44.0 Chronic obstructive pulmonary disease with (acute) lower respiratory infection; G93.40 Encephalopathy, unspecified; N17.9 Acute kidney failure, unspecified; E87.29 Other acidosis; J96.21 Acute and chronic respiratory failure with hypoxia; F17.210 Nicotine dependence, cigarettes, uncomplicated; I48.91 Unspecified atrial fibrillation; I27.20 Pulmonary hypertension, unspecified; I34.1 Nonrheumatic mitral (valve) prolapse; R45.1 Restlessness and agitation; Z99.81 Dependence on supplemental oxygen; Z79.01 Long term (current) use of anticoagulants
CPT/HCPCS: 0241U; 36415; 36416; 36592; 36600; 51702; 70450; 71045; 71250; 74176; 80048; 80051; 80053; 80306; 80307; 81001; 82330; 82803; 82805; 82962; 83605; 83735; 83880; 84100; 84145; 84436; 84443; 84481; 84484; 85025; 86140; 86403; 87040; 87070; 87075; 87077; 87086; 87150; 87186; 87205; 87486; 87493; 87581; 87633; 92507; 92523; 92526; 92610; 93005; 94003; 94640; 94660; 94664; 94799; 96365; 96366; 96372; 96374; 96375; 96376; 97110; 97116; 97162; 97165; 99291; J0283; J0330; J0456; J0696; J1815; J1940; J2020; J2060; J2270; J2543; J2704; J2919; J3010; J3475; J3480; J3490; J7030; J7040; J7050; J7512; J7626; J7799

== ENCOUNTER 2024-09-10 16:23 | Observation (INO) | payer MEDICARE, MEDICAID, SELFPAY ==
[2024-09-10] VITALS (27 sets, daily range): BP systolic 90–172; BP diastolic 64–100; PULSE 75–109; RESP 16–32; TEMP 36.5–36.7; O2SAT 89–98
--- NOTE | 2024-09-10 16:29 | XRR_ITS ---
PROCEDURE INFORMATION: Exam: XR Right Ribs with PA Chest Exam date and time: 09/10/2024 4:48 PM Age: 63 years old Clinical indication: Injury or trauma; Fall; Rib area; Blunt trauma (contusions or hematomas) TECHNIQUE: Imaging protocol: Radiologic exam of the right ribs with PA chest. Views: 3 views COMPARISON: CR XR chest 1V portable [id number] 07/17/2024 7:03 AM FINDINGS: Lungs: Unremarkable. No consolidation. Pleural spaces: There is blunting of the right costophrenic angle. Possible small pleural effusion. Heart/Mediastinum: Stable enlargement of the cardiac silhouette. Bones/joints: No acute rib fracture. Short metallic plates are seen anchored to the left 3rd, 4th, and 5th ribs. XR/XR ribs RT mn 3V w CXR1V [id number] IMPRESSION: 1. There is blunting of the right costophrenic angle. Possible small pleural effusion. 2. No acute rib fracture.
--- NOTE | 2024-09-10 16:42 | ECG_ITS ---
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 Measurements Intervals [place] Rate: 126 P: 0 NC: 0 QRS: 126 QRSD: 112 T: 25 QT: 288 QTc: 417 Interpretive Statements ATRIAL FIBRILLATION WITH RAPID VENTRICULAR RESPONSE INCOMPLETE RIGHT BUNDLE BRANCH BLOCK [90+ ms QRS DURATION, TERMINAL R IN V1/V2, 40+ ms S IN I/aVL/V4/V5/V6] POSSIBLE RIGHT VENTRICULAR HYPERTROPHY [SOME/ALL OF: PROMINENT R IN V1, LATE TRANSITION, RAD, LILIANE, SSS] ANTEROSEPTAL MYOCARDIAL INFARCTION , OF INDETERMINATE AGE [40+ ms Q WAVE IN V1-V4] Compared to ECG 07/21/2024 22:24:09 No significant changes Electronically Signed On 09-10-2024 19:22:52 ASSEMBLY MACHINE SET UP MECHANIC by Tino Lowery M.D. [email or web address]
--- NOTE | 2024-09-10 17:18 | ED_ITS ---
Documented by User: Naren Jordan DO 09/11/24 06:21 HPI - Back Pain/Injury 2 General: Chief Complaint: Back Pain/Injury Stated Complaint: left side pain from fall coughing up blood Time Seen by Provider: 09/10/24 16:47 History of Present Illness: 63-year-old male presents emergency room with complaints of left-sided rib pain and hemoptysis 5 days ago he fell while getting out of a semi and hit his right ribs. (Note that in the stated complaint it said left however when you talk to the patient he refers to right sided rib pain the triage note has not corrected his right sided rib pain). Patient also has a history of atrial fibrillation he usually is on anticoagulant as well as amiodarone for atrial fibrillation. He stopped those a couple weeks ago and his medicines ran out. He thinks for the last couple of days he has been having a rapid heart rate he has had increased swelling and increased shortness of breath. He denies chest pain. Patient is satting normally on his usual 6 L by nasal cannula. Associated symptoms: Deny abdominal pain, chills, dysuria, fever(s) or urinary urgency Related Data Home Medications Medication Instructions Recorded Confirmed albuterol sulfate 90 mcg/actuation 2 puff inhalation Q6H PRN 06/04/24 07/16/24 aerosol inhaler Shortness Of Breath bumetanide 1 mg tablet 1 mg PO BID 06/04/24 07/16/24 bupropion HCl 150 mg 24 hr tablet, 150 mg PO QAM 06/04/24 07/16/24 extended release tamsulosin 0.4 mg capsule 0.4 mg PO DAILY 06/04/24 07/16/24 metoprolol tartrate 50 mg tablet 25 mg PO BID 07/16/24 07/16/24 umeclidinium 62.5 mcg-vilanterol 1 inh inhalation DAILY 07/16/24 07/16/24 25 mcg/actuation powdr for inhalation (Anoro Ellipta) Previous Rx's Medication Instructions Recorded home fill oxygen concentrator #1 ea 04/19/23 motorized electric scooter #1 ea 04/26/23 pulse oxymeter #1 ea 04/26/23 Electric wheelchair #1 ea 05/04/23 ipratropium 0.5 mg-albuterol 3 mg 3 ml inhalation Q6H PRN shortness 11/21/23 (2.5 mg base)/3 mL nebulization of breath or wheezing 30 days #180 soln mL albuterol sulfate 2.5 mg/3 mL 2.5 mg (3 mL) inhalation Q6H PRN 04/27/24 (0.083 %) solution for nebulization shortness of breath or wheezing #180 mL apixaban 5 mg tablet (Eliquis) 5 mg PO BID #180 tabs 04/27/24 loperamide 2 mg capsule 2 mg PO Q6H PRN loose stool #30 04/27/24 caps mirabegron 25 mg tablet,extended 25 mg PO DAILY #90 tabs 04/27/24 release 24 hr ondansetron 4 mg disintegrating 4 mg PO Q8H PRN nausea and 04/27/24 tablet vomiting #60 tabs potassium chloride 10 mEq 20 meq (2 x 10 mEq) PO DAILY #180 04/27/24 tablet,extended release tabs amiodarone 400 mg tablet 400 mg PO DAILY 1 month #30 tabs 06/06/24 Allergies Allergy/AdvReac Type Severity Reaction Status Date / Time No Known Allergies Allergy Verified 09/10/24 16:39 Review of Systems 2 Const: Denies: fever(s) or chills Card: Reports: palpitations, irregular heart rhythm, edema, swelling of feet/ankles, dyspnea on exertion and orthopnea Resp: Denies: dyspnea GI: Denies: abdominal pain : Denies: dysuria, urinary frequency or urinary urgency Musc: Denies: neck pain or back pain Skin/Breast: Denies: rash PFSH ED 2 PFSH: Medical History Staphylococcus epidermidis bacteremia Respiratory acidosis Tobacco abuse counseling Chronic neck pain Congestion of throat Diarrhea Open wound of scrotum Sepsis Coag negative Staphylococcus bacteremia Acute on chronic respiratory failure with hypoxia and hypercapnia Abrasion, right lower leg, initial encounter Penile rash Rash of groin Exertional chest pain Congestive heart failure Moderate tricuspid regurgitation Mitral valve prolapse Hyperkalemia Acute hyperkalemia Oxygen dependent Non-compliance Substance abuse Moderate tobacco use disorder Bladder incontinence Lower extremity edema End stage COPD Smoker Tobacco use disorder Heart failure with mildly reduced ejection fraction (HFmrEF) Right heart failure with reduced right ventricular function Rib deformity Acute and chronic respiratory failure with hypoxia Atrial fibrillation with RVR Acute exacerbation of chronic obstructive airways disease Hyperlipidemia Atrial fibrillation COPD (chronic obstructive pulmonary disease) Surgical History History of colon surgery Family History Other CAD (coronary artery disease) Hypertension Lung disease Denies family history of Diabetes Clotting disorder Dementia Hyperlipidemia Psychiatric illness Chronic kidney disease (CKD) Anesthesia complication Bleeding disorder Cancer Stroke Social History Smoking and tobacco/nicotine status: current every day tobacco/nicotine user cigarettes Packs smoked per day: 0.5 Alcohol intake: former Substance/Drug Use: never Lives independently: Yes Current occupational status: disabled Current gender identity: Male Special jeri needs: No Agree to transfusion: Yes Physical Exam 2 Const: COMMON NORMALS: no acute distress GENERAL APPEARANCE: cooperative and comfortable ORIENTATION/CONSCIOUSNESS: Yes awake, Yes oriented to person, Yes oriented to place and Yes oriented to time HENMT: COMMON NORMALS: normocephalic, atraumatic and hearing grossly normal bilaterally HEAD & SCALP: normocephalic and atraumatic Resp: COMMON NORMALS: normal respiratory effort, No retractions, No use of accessory muscles and clear to auscultation bilaterally AUSCULTATION: clear to auscultation bilaterally Cardio: COMMON NORMALS: regular rate, regular rhythm and No murmurs present (Cardio) RATE: regular rate RHYTHM: regular rhythm GI: COMMON NORMALS: Soft to palpation and No hepatosplenomegaly present A USCULTATION: Yes normoactive bowel sounds PALPATION: Yes Soft to palpation, No Tenderness to palpation present (GI), No Guarding due to palpation present (GI) and Yes No hepatosplenomegaly present Extremity: OTHER: Lower extremities reddened inflamed swollen tender to the touch mildly indurated he has a abrasion actually was through his sock count of the skin partial- thickness on the medial aspect of the right foot. Neuro: SENSORIUM/ORIENTATION: Yes oriented to person, Yes oriented to place and Yes oriented to time Skin: COMMON NORMALS: no rashes or lesions noted GENERAL SKIN EXAM: no rashes or lesions noted Course 2 Vital Signs: Vital signs: Vital Signs Temperature 98.1 F 09/10/24 23:52 Pulse Rate 102 H 09/11/24 05:24 Respiratory Rate 17 09/11/24 04:00 Blood Pressure 122/79 09/11/24 04:00 Pulse Oximetry 94 09/11/24 04:00 Oxygen Delivery In thod Nasal Cannula 09/11/24 04:00 Oxygen Flow Rate 6 09/11/24 04:00 MDM - Back Pain/Injury Medical Decision Making Patient seen initially. Patient in A-fib with RVR has reddened inflamed extremities. Of some mild cellulitis. Labs imaging pending. Care signed out to Dr. Oconnor at change of shift. See final notes for diagnosis and disposition. Patient transitioned to nc at shift change. Awaiting CT scan. Patient placed on diltiazem drip and given a bolus prior to my arrival. On exam he has very red hot tender to palpation extremities. Have started him on some antibiotics for this. Consultation: I spoke with Dr. Lawler who is on-call for the hospitalist service who agrees to admission. Labs 09/10/24 17:25 09/10/24 17:25 Radiology Impressions Ribs X-Ray 09/10/24 16:29 IMPRESSION: 1. There is blunting of the right costophrenic angle. Possible small pleural effusion. 2. No acute rib fracture. Chest CT 09/10/24 18:25 IMPRESSION: 1. Acute right-sided rib fractures with small right pleural effusion 2. Cavitary lesion in the right lower lobe containing hyperdense fluid. This is felt to represent contained parenchymal hematoma 3. Chronic emphysematous changes again noted COMMENTS: The presence of pulmonary emphysema on CT is an independent risk factor for lung cancer. In the absence of a history or active diagnosis of lung cancer, it is recommended that this patient with emphysema be evaluated for enrollment in a low dose CT lung cancer screening program. Laboratory Results WBC 11.92 10^3/uL (3.29-11.43) H 09/10/24 17:25 RBC 5.04 10^6/uL (3.85-5.65) 09/10/24 17:25 Hgb 14.00 g/dL (11.27-16.99) 09/10/24 17:25 Hct 45.6 % (37-53) 09/10/24 17:25 MCV 90.5 fl (82-101) 09/10/24 17:25 MCH 27.8 pg (27-33) 09/10/24 17:25 MCHC 30.7 g/dL (30-55) 09/10/24 17:25 RDW 18.0 % (12.1-15.1) H 09/10/24 17:25 Plt Count 276 10^3/cmm (157-399) 09/10/24 17:25 MPV 9.6 fL (7.4-10.4) 09/10/24 17:25 Neut % (Auto) 74.0 % 09/10/24 17:25 Lymph % (Auto) 14.7 % 09/10/24 17:25 [place] % (Auto) 7.5 % 09/10/24 17:25 Eos % (Auto) 3.1 % 09/10/24 17:25 Baso % (Auto) 0.3 % 09/10/24 17:25 Neut # (Auto) 8.83 10^3/uL (1.8-7.7) H 09/10/24 17:25 Lymph # (Auto) 1.8 10^3/uL (0.8-4.8) 09/10/24 17:25 [place] # (Auto) 0.9 10^3/uL (0.2-0.9) 09/10/24 17:25 Eos # (Auto) 0.4 10^3/uL (0.0-0.8) 09/10/24 17:25 Baso # (Auto) 0.0 10^3/uL (0.0-0.1) 09/10/24 17:25 Nucleated RBC % (auto) 0 % 09/10/24 17:25 Nucleated RBCs # 0.0 /100WBC 09/10/24 17:25 ESR 28 mm/hr (0-10) H 09/10/24 17:25 Sodium 143 mmol/L (136-145) 09/10/24 17:25 Potassium 5.0 mmol/L (3.5-5.1) 09/10/24 17:25 Chloride 100 mmol/L (98-107) 09/10/24 17:25 Carbon Dioxide 31 mmol/L (22-29) H 09/10/24 17:25 Anion Gap 17.0 (5-19) 09/10/24 17:25 BUN 16 mg/dL (8-23) 09/10/24 17:25 Creatinine 0.6 mg/dL (0.7-1.2) L 09/10/24 17:25 GFR Calculation 135.2 mL/min (90-130) H 09/10/24 17:25 Glucose 87 mg/dL (65-115) 09/10/24 17:25 Calculated Osmolality 297 mOsm/kg (285-295) H 09/10/24 17:25 Lactic Acid 1.5 mmol/L (0.5-2.2) 09/10/24 17:25 Calcium 9.9 mg/dL (8.5-10.5) 09/10/24 17:25 Total Bilirubin 0.8 mg/dL (0.15-1.2) 09/10/24 17:25 AST 23 U/L (0-40) 09/10/24 17:25 ALT 15 U/L (0-41) 09/10/24 17:25 Alkaline Phosphatase 111 U/L (40-130) 09/10/24 17:25 Creatine Kinase 84 U/L (39-308) 09/10/24 17:25 Troponin T Baseline 33 ng/L (0-15) H 09/10/24 17:25 Troponin T 120 Minute 30.48 ng/L (0-15) H 09/10/24 19:12 Delta Troponin T -2.52 ABS# (0-10) L 09/10/24 19:12 C-Reactive Protein 133.7 mg/L (0.0-4.9) H 09/10/24 17:25 NT-Pro-B Natriuret Pep 786 pg/mL (0-125) H 09/10/24 17:25 Total Protein 7.2 g/dL (6.6-8.7) 09/10/24 17:25 Albumin 3.9 g/dL (3.5-5.2) 09/10/24 17:25 Globulin 3.3 g/dL (1.3-4.6) 09/10/24 17:25 Procalcitonin 0.08 ng/mL (0-0.5) 09/10/24 17:25 Urine Color Yellow (Yellow) 09/10/24 19:15 Urine Appearance Clear (CLEAR) 09/10/24 19:15 Urine pH 6.0 (5-7) 09/10/24 19:15 Ur Specific [place] 1.026 (1.005-1.030) 09/10/24 19:15 Urine Protein 1+ (Negative) A 09/10/24 19:15 Urine Glucose (UA) Negative (Normal) 09/10/24 19:15 Urine Ketones Negative (Negative) 09/10/24 19:15 Urine Blood Negative (Negative) 09/10/24 19:15 Urine Nitrate Negative (Negative) 09/10/24 19:15 Urine Bilirubin Negative (Negative) 09/10/24 19:15 Urine Urobilinogen 1.0 mg/dL (Negative) 09/10/24 19:15 Ur Leukocyte Esterase Negative (Negative) 09/10/24 19:15 Urine RBC 0-2 /hpf (0-2) 09/10/24 19:15 Urine WBC 0-5 /hpf (0-5) 09/10/24 19:15 Ur Squamous Epith Cells 0-5 /hpf (0-5) 09/10/24 19:15 Amorphous Sediment Not Reportable 09/10/24 19:15 Urine Bacteria None seen /hpf (NONE) 09/10/24 19:15 Hyaline Casts 0.40 /lpf 09/10/24 19:15 Discharge Plan Discharge Patient Disposition: Admitted As Inpatient Admit Provider: Quinn Lawler Clinical Impression: Atrial fibrillation with rapid ventricular response, Cellulitis, Edema, Medical non-compliance, Rib pain Condition: Stable Coding Level of Care Code ED Clinical Documentation Manager for Chg Fwd Documented by User: Haily Oconnor MD 09/10/24 20:37 HPI - Back Pain/Injury 2 General: Chief Complaint: Back Pain/Injury Stated Complaint: left side pain from fall coughing up blood Time Seen by Provider: 09/10/24 16:47 Related Data Home Medications Medication Instructions Recorded Confirmed albuterol sulfate 90 mcg/actuation 2 puff inhalation Q6H PRN 06/04/24 07/16/24 aerosol inhaler Shortness Of Breath bumetanide 1 mg tablet 1 mg PO BID 06/04/24 07/16/24 bupropion HCl 150 mg 24 hr tablet, 150 mg PO QAM 06/04/24 07/16/24 extended release tamsulosin 0.4 mg capsule 0.4 mg PO DAILY 06/04/24 07/16/24 metoprolol tartrate 50 mg tablet 25 mg PO BID 07/16/24 07/16/24 umeclidinium 62.5 mcg-vilanterol 1 inh inhalation DAILY 07/16/24 07/16/24 25 mcg/actuation powdr for inhalation (Anoro Ellipta) Previous Rx's Medication Instructions Recorded home fill oxygen concentrator #1 ea 04/19/23 motorized electric scooter #1 ea 04/26/23 pulse oxymeter #1 ea 04/26/23 Electric wheelchair #1 ea 05/04/23 ipratropium 0.5 mg-albuterol 3 mg 3 ml inhalation Q6H PRN shortness 11/21/23 (2.5 mg base)/3 mL nebulization of breath or wheezing 30 days #180 soln mL albuterol sulfate 2.5 mg/3 mL 2.5 mg (3 mL) inhalation Q6H PRN 04/27/24 (0.083 %) solution for nebulization shortness of breath or wheezing #180 mL apixaban 5 mg tablet (Eliquis) 5 mg PO BID #180 tabs 04/27/24 loperamide 2 mg capsule 2 mg PO Q6H PRN loose stool #30 04/27/24 caps mirabegron 25 mg tablet,extended 25 mg PO DAILY #90 tabs 04/27/24 release 24 hr ondansetron 4 mg disintegrating 4 mg PO Q8H PRN nausea and 04/27/24 tablet vomiting #60 tabs potassium chloride 10 mEq 20 meq (2 x 10 mEq) PO DAILY #180 04/27/24 tablet,extended release tabs amiodarone 400 mg tablet 400 mg PO DAILY 1 month #30 tabs 06/06/24 Allergies Allergy/AdvReac Type Severity Reaction Status Date / Time No Known Allergies Allergy Verified 09/10/24 16:39 PFSH ED 2 PFSH: Medical History Staphylococcus epidermidis bacteremia Respiratory acidosis Tobacco abuse counseling Chronic neck pain Congestion of throat Diarrhea Open wound of scrotum Sepsis Coag negative Staphylococcus bacteremia Acute on chronic respiratory failure with hypoxia and hypercapnia Abrasion, right lower leg, initial encounter Penile rash Rash of groin Exertional chest pain Congestive heart failure Moderate tricuspid regurgitation Mitral valve prolapse Hyperkalemia Acute hyperkalemia Oxygen dependent Non-compliance Substance abuse Moderate tobacco use disorder Bladder incontinence Lower extremity edema End stage COPD Smoker Tobacco use disorder Heart failure with mildly reduced ejection fraction (HFmrEF) Right heart failure with reduced right ventricular function Rib deformity Acute and chronic respiratory failure with hypoxia Atrial fibrillation with RVR Acute exacerbation of chronic obstructive airways disease Hyperlipidemia Atrial fibrillation COPD (chronic obstructive pulmonary disease) Surgical History History of colon surgery Family History Other CAD (coronary artery disease) Hypertension Lung disease Denies family history of Diabetes Clotting disorder Dementia Hyperlipidemia Psychiatric illness Chronic kidney disease (CKD) Anesthesia complication Bleeding disorder Cancer Stroke Social History Smoking and tobacco/nicotine status: current every day tobacco/nicotine user cigarettes Packs smoked per day: 0.5 Alcohol intake: former Substance/Drug Use: never Lives independently: Yes Current occupational status: disabled Current gender identity: Male Special jeri needs: No Agree to transfusion: Yes Course 2 Vital Signs: Vital signs: Vital Signs Temperature 98.1 F 09/10/24 23:52 Pulse Rate 102 H 09/11/24 05:24 Respiratory Rate 17 09/11/24 04:00 Blood Pressure 122/79 09/11/24 04:00 Pulse Oximetry 94 09/11/24 04:00 Oxygen Delivery Me thod Nasal Cannula 09/11/24 04:00 Oxygen Flow Rate 6 09/11/24 04:00 MDM - Back Pain/Injury Medical Decision Making Patient transitioned to nc at shift change. Awaiting CT scan. Patient placed on diltiazem drip and given a bolus prior to my arrival. On exam he has very red hot tender to palpation extremities. Have started him on some antibiotics for this. Consultation: I spoke with Dr. Lawler who is on-call for the hospitalist service who agrees to admission. Labs 09/10/24 17:25 09/10/24 17:25 Radiology Impressions Ribs X-Ray 09/10/24 16:29 IMPRESSION: 1. There is blunting of the right costophrenic angle. Possible small pleural effusion. 2. No acute rib fracture. Chest CT 09/10/24 18:25 IMPRESSION: 1. Acute right-sided rib fractures with small right pleural effusion 2. Cavitary lesion in the right lower lobe containing hyperdense fluid. This is felt to represent contained parenchymal hematoma 3. Chronic emphysematous changes again noted COMMENTS: The presence of pulmonary emphysema on CT is an independent risk factor for lung cancer. In the absence of a history or active diagnosis of lung cancer, it is recommended that this patient with emphysema be evaluated for enrollment in a low dose CT lung cancer screening program. Laboratory Results WBC 11.92 10^3/uL (3.29-11.43) H 09/10/24 17:25 RBC 5.04 10^6/uL (3.85-5.65) 09/10/24 17:25 Hgb 14.00 g/dL (11.27-16.99) 09/10/24 17:25 Hct 45.6 % (37-53) 09/10/24 17:25 MCV 90.5 fl (82-101) 09/10/24 17:25 MCH 27.8 pg (27-33) 09/10/24 17:25 MCHC 30.7 g/dL (30-55) 09/10/24 17:25 RDW 18.0 % (12.1-15.1) H 09/10/24 17:25 Plt Count 276 10^3/cmm (157-399) 09/10/24 17:25 MPV 9.6 fL (7.4-10.4) 09/10/24 17:25 Neut % (Auto) 74.0 % 09/10/24 17:25 Lymph % (Auto) 14.7 % 09/10/24 17:25 [place] % (Auto) 7.5 % 09/10/24 17:25 Eos % (Auto) 3.1 % 09/10/24 17:25 Baso % (Auto) 0.3 % 09/10/24 17:25 Neut # (Auto) 8.83 10^3/uL (1.8-7.7) H 09/10/24 17:25 Lymph # (Auto) 1.8 10^3/uL (0.8-4.8) 09/10/24 17:25 [place] # (Auto) 0.9 10^3/uL (0.2-0.9) 09/10/24 17:25 Eos # (Auto) 0.4 10^3/uL (0.0-0.8) 09/10/24 17:25 Baso # (Auto) 0.0 10^3/uL (0.0-0.1) 09/10/24 17:25 Nucleated RBC % (auto) 0 % 09/10/24 17:25 Nucleated RBCs # 0.0 /100WBC 09/10/24 17:25 ESR 28 mm/hr (0-10) H 09/10/24 17:25 Sodium 143 mmol/L (136-145) 09/10/24 17:25 Potassium 5.0 mmol/L (3.5-5.1) 09/10/24 17:25 Chloride 100 mmol/L (98-107) 09/10/24 17:25 Carbon Dioxide 31 mmol/L (22-29) H 09/10/24 17:25 Anion Gap 17.0 (5-19) 09/10/24 17:25 BUN 16 mg/dL (8-23) 09/10/24 17:25 Creatinine 0.6 mg/dL (0.7-1.2) L 09/10/24 17:25 GFR Calculation 135.2 mL/min (90-130) H 09/10/24 17:25 Glucose 87 mg/dL (65-115) 09/10/24 17:25 Calculated Osmolality 297 mOsm/kg (285-295) H 09/10/24 17:25 Lactic Acid 1.5 mmol/L (0.5-2.2) 09/10/24 17:25 Calcium 9.9 mg/dL (8.5-10.5) 09/10/24 17:25 Total Bilirubin 0.8 mg/dL (0.15-1.2) 09/10/24 17:25 AST 23 U/L (0-40) 09/10/24 17:25 ALT 15 U/L (0-41) 09/10/24 17:25 Alkaline Phosphatase 111 U/L (40-130) 09/10/24 17:25 Creatine Kinase 84 U/L (39-308) 09/10/24 17:25 Troponin T Baseline 33 ng/L (0-15) H 09/10/24 17:25 Troponin T 120 Minute 30.48 ng/L (0-15) H 09/10/24 19:12 Delta Troponin T -2.52 ABS# (0-10) L 09/10/24 19:12 C-Reactive Protein 133.7 mg/L (0.0-4.9) H 09/10/24 17:25 NT-Pro-B Natriuret Pep 786 pg/mL (0-125) H 09/10/24 17:25 Total Protein 7.2 g/dL (6.6-8.7) 09/10/24 17:25 Albumin 3.9 g/dL (3.5-5.2) 09/10/24 17:25 Globulin 3.3 g/dL (1.3-4.6) 09/10/24 17:25 Procalcitonin 0.08 ng/mL (0-0.5) 09/10/24 17:25 Urine Color Yellow (Yellow) 09/10/24 19:15 Urine Appearance Clear (CLEAR) 09/10/24 19:15 Urine pH 6.0 (5-7) 09/10/24 19:15 Ur Specific [place] 1.026 (1.005-1.030) 09/10/24 19:15 Urine Protein 1+ (Negative) A 09/10/24 19:15 Urine Glucose (UA) Negative (Normal) 09/10/24 19:15 Urine Ketones Negative (Negative) 09/10/24 19:15 Urine Blood Negative (Negative) 09/10/24 19:15 Urine Nitrate Negative (Negative) 09/10/24 19:15 Urine Bilirubin Negative (Negative) 09/10/24 19:15 Urine Urobilinogen 1.0 mg/dL (Negative) 09/10/24 19:15 Ur Leukocyte Esterase Negative (Negative) 09/10/24 19:15 Urine RBC 0-2 /hpf (0-2) 09/10/24 19:15 Urine WBC 0-5 /hpf (0-5) 09/10/24 19:15 Ur Squamous Epith Cells 0-5 /hpf (0-5) 09/10/24 19:15 Amorphous Sediment Not Reportable 09/10/24 19:15 Urine Bacteria None seen /hpf (NONE) 09/10/24 19:15 Hyaline Casts 0.40 /lpf 09/10/24 19:15 All radiology interpretation(s) finalized by discharge Discharge Plan Discharge Patient Disposition: Admitted As Inpatient Admit Provider: Quinn Lawler Clinical Impression: Atrial fibrillation with rapid ventricular response, Cellulitis, Edema, Medical non-compliance, Rib pain Condition: Stable Coding Level of Care Code ED Clinical Documentation Manager for Emily Talbot
[2024-09-10] MEDS: dilTIAZem 5 mg/mL SDV 5 mL 20 MG IVP (17:40)
[2024-09-10] MEDS: dilTIAZem 100 MG in sodium chloride 0.9% (add-van) 100 ML IV (17:43)
[2024-09-10 17:50] LABS: Basophils % 0.3 %; Eosinophils # 0.4 10^3/uL (0.0-0.8); Eosinophils % 3.1 %; Hematocrit 45.6 % (37-53); Lymphocytes # 1.8 10^3/uL (0.8-4.8); Lymphocytes % 14.7 %; Mean Corpuscular HGB Conc 30.7 g/dL (30-55); Mean Corpuscular Hemoglobin 27.8 pg (27-33); Mean Corpuscular Volume 90.5 fl (82-101); Mean Platelet Volume 9.6 fL (7.4-10.4); Monocytes # 0.9 10^3/uL (0.2-0.9); Monocytes % 7.5 %; Neutrophils # 8.83 10^3/uL (1.8-7.7); Nucleated Red Blood Cells % 0 %; Platelet Count 276 10^3/cmm (157-399); Red Blood Count 5.04 10^6/uL (3.85-5.65); White Blood Count 11.92 10^3/uL (3.29-11.43)
[2024-09-10 18:08] LABS: Troponin(5th) Baseline 33 ng/L (0-15)
[2024-09-10 18:09] LABS: Lactic Sepsis W/Reflex 1.5 mmol/L (0.5-2.2)
[2024-09-10 18:14] LABS: Alanine Aminotransferase 15 U/L (0-41); Albumin Level 3.9 g/dL (3.5-5.2); Alkaline Phosphatase 111 U/L (40-130); Aspartate Amino Transferase 23 U/L (0-40); Blood Urea Nitrogen 16 mg/dL (8-23); Calcium 9.9 mg/dL (8.5-10.5); Carbon Dioxide 31 mmol/L (22-29); Chloride 100 mmol/L (98-107); Creatinine Clr Calc Pharmacy 110.2365; Globulin 3.3 g/dL (1.3-4.6); Glomerular Filtration Rate 135.2 mL/min (90-130); Glucose 87 mg/dL (65-115); Osmolality Calculated 297 mOsm/kg (285-295); Sodium 143 mmol/L (136-145); Total Bilirubin 0.8 mg/dL (0.15-1.2); Total Protein 7.2 g/dL (6.6-8.7)
--- NOTE | 2024-09-10 18:25 | CTR_ITS ---
PROCEDURE INFORMATION: Exam: CT Chest Without Contrast; Diagnostic Exam date and time: 09/10/2024 7:33 PM Age: 63 years old Clinical indication: Injury or trauma; Fall; Blunt trauma (contusions or hematomas); Injury date: 09/05/2024 (approximate); Prior surgery; Surgery date: 6+ months; Surgery type: Ribs; Additional info: Traumatic chest pain TECHNIQUE: Imaging protocol: Diagnostic computed tomography of the chest without contrast. Radiation optimization: All CT scans at this facility use at least one of these dose optimization techniques: automated exposure control; mA and/or kV adjustment per patient size (includes targeted exams where dose is matched to clinical indication); or iterative reconstruction. COMPARISON: CT chest wo con [id number] 07/14/2024 5:22 AM RADIATION DOSE METRICS: Total DLP (mGy-cm): 428.24 FINDINGS: Lungs: There is a 5.6 cm pleural-based cavitary nodule involving the medial aspect of the right lower lobe. The cavitary lesion contains hyperdense fluid. There is patchy atelectasis in the right lower lobe. Both lungs demonstrate diffuse centrilobular and paraseptal emphysematous changes. Pleural spaces: A small right pleural effusion is noted but I see no pneumothorax. Heart: Prominent cardiomegaly is noted. Coronary arteries: There is no evidence of coronary artery calcifications. Lymph nodes: Unremarkable. No enlarged lymph nodes. Vasculature: Unremarkable. No aortic aneurysm. Bones/joints: There are acute nondisplaced fractures involving the posterior aspect of the right 7th, 8th, 9th and 10th ribs. Multiple old rib fractures are noted bilaterally. Some of the fractures contain metallic hardware on the left. Soft tissues: Unremarkable. CT/CT chest wo con [id number] IMPRESSION: 1. Acute right-sided rib fractures with small right pleural effusion 2. Cavitary lesion in the right lower lobe containing hyperdense fluid. This is felt to represent contained parenchymal hematoma 3. Chronic emphysematous changes again noted COMMENTS: The presence of pulmonary emphysema on CT is an independent risk factor for lung cancer. In the absence of a history or active diagnosis of lung cancer, it is recommended that this patient with emphysema be evaluated for enrollment in a low dose CT lung cancer screening program.
[2024-09-10] MEDS: cefepime 2,000 mg SDV 2000 MG IVP (18:59)
[2024-09-10] MEDS: morphine 4 mg/mL SDV 1 mL 2 MG IVP (19:00)
[2024-09-10] MEDS: ondansetron 2 mg/ML SDV 2 mL 4 MG IVP (19:02)
[2024-09-10 19:09] LABS: Erythrocyte Sedimentation Rate 28 mm/hr (0-10)
[2024-09-10 19:29] LABS: C Reactive Protein 133.7 mg/L (0.0-4.9); Creatine Phosphokinase 84 U/L (39-308); NT Pro B Type Natriuretic Pept 786 pg/mL (0-125)
[2024-09-10 19:31] LABS: Bilirubin Urine Negative (Negative); Blood Urine Negative (Negative); Glucose Urine UA Negative (Normal); Ketones Urine Negative (Negative); Leukocyte Esterase Urine Negative (Negative); Nitrate Urine Negative (Negative); Protein Urine 1+ (Negative); Specific Gravity, Urine 1.026 (1.005-1.030); Urine Appearance Clear (CLEAR); Urine Color Yellow (Yellow)
[2024-09-10 19:36] LABS: Add Urine Microscopic? YES; Bacteria Urine None Seen /hpf; RBC Urine 0-2 /hpf (0-2); Squamous Epithelial Cell Urine 0-5 /hpf (0-5); WBC Urine 0-5 /hpf (0-5)
[2024-09-10 19:42] LABS: Add Urine Culture? No
[2024-09-10 19:43] LABS: Troponin 5 2HR 30.48 ng/L (0-15); Troponin 5 2HR Delta -2.52 ABS# (0-10)
--- NOTE | 2024-09-10 21:07 | P.HP_ITS ---
Providers/Chief Complaint 2 Primary Care Provider: Sloan Arias MD Chief Complaint: left side pain from fall coughing up blood History of Present Illness Gareth Pickering is a 63 year old male with a past medical history significant for COPD, congestive heart failure, atrial fibrillation, hypertension, tobacco use disorder, chronic hypoxic respiratory failure with 6 L baseline oxygen requirement, and medical noncompliance who presents to the emergency department with right sided thoracic chest pains. Patient reports onset approximately 5 days ago after falling out of a truck onto his chest. He reports deep breaths worsens his symptoms. States yesterday he developed slight red tinge sputum. He states today it has improved and only mildly pink. He notes that pressing on his right chest worsens the pain. In the emergency department, chest CT showed multiple right-sided rib fractures and associated cavitary lesion in the right lower lobe containing hyperdense fluid suspected secondary to parenchymal hematoma suspected secondary to recent traumatic event. Patient also reports he is not taking any of his medications for the past 3 to 4 weeks. He has a known history of medical noncompliance. He reports associated severe edema in lower extremities. Reports very mild abdominal distention. In the emergency department, he was also found to have atrial fibrillation with rapid ventricular rate. He was started on a Cardizem drip. Review of Systems 2 Narrative: A complete review of systems was obtained and is negative except as stated in HPI. Medications/Allergies Home Medications Medication Instructions Recorded Confirmed Last Taken Type home fill oxygen concentrator #1 04/19/23 07/16/24 Unknown Rx motorized electric scooter #1 ea 04/26/23 07/16/24 Unknown Rx pulse oxymeter #1 ea 04/26/23 07/16/24 Unknown Rx Electric wheelchair #1 ea 05/04/23 07/16/24 Unknown Rx ipratropium 0.5 mg-albuterol 3 mg 3 ml inhalation Q6H PRN shortness 11/21/23 07/16/24 Unknown Rx (2.5 mg base)/3 mL nebulization of breath or wheezing 30 days #180 soln mL albuterol sulfate 2.5 mg/3 mL 2.5 mg (3 mL) inhalation Q6H PRN 04/27/24 07/16/24 Unknown Rx (0.083 %) solution for nebulization shortness of breath or wheezing #180 mL apixaban 5 mg tablet (Eliquis) 5 mg PO BID #180 tabs 04/27/24 07/16/24 Unknown Rx loperamide 2 mg capsule 2 mg PO Q6H PRN loose stool #30 04/27/24 07/16/24 Unknown Rx caps mirabegron 25 mg tablet,extended 25 mg PO DAILY #90 tabs 04/27/24 07/16/24 Unknown Rx release 24 hr ondansetron 4 mg disintegrating 4 mg PO Q8H PRN nausea and 04/27/24 07/16/24 Unknown Rx tablet vomiting #60 tabs potassium chloride 10 mEq 20 meq (2 x 10 mEq) PO DAILY #180 04/27/24 07/16/24 Unknown Rx tablet,extended release tabs albuterol sulfate 90 mcg/actuation 2 puff inhalation Q6H PRN 06/04/24 07/16/24 Unknown History aerosol inhaler Shortness Of Breath bumetanide 1 mg tablet 1 mg PO BID 06/04/24 07/16/24 Unknown History bupropion HCl 150 mg 24 hr tablet, 150 mg PO QAM 06/04/24 07/16/24 Unknown History extended release tamsulosin 0.4 mg capsule 0.4 mg PO DAILY 06/04/24 07/16/24 Unknown History amiodarone 400 mg tablet 400 mg PO DAILY 1 month #30 tabs 06/06/24 07/16/24 Unknown Rx metoprolol tartrate 50 mg tablet 25 mg PO BID 07/16/24 07/16/24 Unknown History umeclidinium 62.5 mcg-vilanterol 1 inh inhalation DAILY 07/16/24 07/16/24 Unknown History 25 mcg/actuation powdr for inhalation (Anoro Ellipta) Allergies Allergy/AdvReac Type Severity Reaction Status Date / Time No Known Allergies Allergy Verified 09/10/24 16:39 PFSH Acute 2 PFSH: Medical History Staphylococcus epidermidis bacteremia Respiratory acidosis Tobacco abuse counseling Chronic neck pain Congestion of throat Diarrhea Open wound of scrotum Sepsis Coag negative Staphylococcus bacteremia Acute on chronic respiratory failure with hypoxia and hypercapnia Abrasion, right lower leg, initial encounter Penile rash Rash of groin Exertional chest pain Congestive heart failure Moderate tricuspid regurgitation Mitral valve prolapse Hyperkalemia Acute hyperkalemia Oxygen dependent Non-compliance Substance abuse Moderate tobacco use disorder Bladder incontinence Lower extremity edema End stage COPD Smoker Tobacco use disorder Heart failure with mildly reduced ejection fraction (HFmrEF) Right heart failure with reduced right ventricular function Rib deformity Acute and chronic respiratory failure with hypoxia Atrial fibrillation with RVR Acute exacerbation of chronic obstructive airways disease Hyperlipidemia Atrial fibrillation COPD (chronic obstructive pulmonary disease) Surgical History History of colon surgery Family History Other CAD (coronary artery disease) Hypertension Lung disease Denies family history of Diabetes Clotting disorder Dementia Hyperlipidemia Psychiatric illness Chronic kidney disease (CKD) Anesthesia complication Bleeding disorder Cancer Stroke Social History Smoking and tobacco/nicotine status: current every day tobacco/nicotine user cigarettes Packs smoked per day: 0.5 Alcohol intake: former Substance/Drug Use: never Lives independently: Yes Current occupational status: disabled Current gender identity: Male Special jeri needs: No Agree to transfusion: Yes Vitals/I&O/Wt Last Vital Signs Temp 97.7 F 09/10/24 16:33 Pulse 106 H 09/10/24 20:30 Resp 21 H 09/10/24 19:00 BP 90/73 09/10/24 20:30 Pulse Ox 95 09/10/24 20:30 O2 Del Method Nasal Cannula 09/10/24 20:30 O2 Flow Rate 6 09/10/24 20:30 09/10/24 09/10/24 09/10/24 06:59 14:59 22:59 Intake Total 18.75 / 18.75 Balance 18.75 / 18.75 Weight last 48 hrs Weight 95.254 kg Physical Exam 2 Narrative: General: Patient is awake and alert. Head: Normocephalic. Atraumatic. EOM intact. Neck: Slightly elevated JVD. Cardiovascular: Tachycardic. No gallops. No murmurs. 3-4+ pitting edema bilateral lower extremities progressing up to thighs. Bilateral hand edema noted. Right thoracic wall is tender to palpation. Lungs: Clear to auscultation, no use of accessory muscles, no crackles or wheezes. Skin: No jaundice. No rashes. Abdomen: Normal bowel sounds, abdomen soft and nontender. Genito Urinary: Genital exam not performed since complaints not related. Rectal: Rectal exam not performed since no symptoms indicated blood loss. Extremities: No cyanosis or clubbing. All 4 extremities are erythemic. Musculoskeletal: No swollen or erythematous joints. Neurological: Moves all 4 extremities. No myoclonus. Data 09/10/24 17:25 09/10/24 17:25 Micro: Microbiology 09/10/24 17:40 Blood Culture - Preliminary Blood SPECIMEN COLLECTED 09/10/24 17:28 Blood Culture - Preliminary Blood SPECIMEN COLLECTED A&P Assessment and plan (1) Rib pain: Right-sided rib pain secondary to multiple right sided rib fractures complicated by suspected intraparenchymal hematoma Imaging reviewed Analgesics ordered Supportive care (2) Atrial fibrillation with rapid ventricular response: Patient started on Cardizem drip, wean off as tolerated Restart home amiodarone Restart home metoprolol Hold home apixaban due to intraparenchymal hematoma and hemoptysis Continue telemetry monitoring Monitor electrolytes (3) Cellulitis: Patient has significant erythema in all 4 extremities, worse in lower extremities Cellulitis in all 4 extremities would be highly unlikely Patient started on cefepime in ED, will continue for now Check inflammatory markers Defer ongoing antibiotics at discretion of oncoming attending (4) Congestive heart failure: Acute on chronic heart failure with preserved ejection fraction exacerbation Patient severely volume overloaded Started on titratable Lasix drip to 10 mg/h Knight catheter for strict I's and O's Daily weights Supportive care Qualifiers: Heart failure chronicity: chronic Heart failure type: unspecified Qualified Code(s): I50.9 - Heart failure, unspecified (5) Chronic hypoxic respiratory failure: Chronic hypoxic respiratory failure on 6 L baseline Patient is currently requiring his baseline oxygen Encourage pulmonary toilet Plan DVT prophylaxis: Apixaban on hold due to reported hemoptysis Attestations 2 Medical Necessity Statement*: Patient presents with right-sided rib pain, found to have multiple right-sided rib fractures likely from trauma associated with intraparenchymal hematoma, A- fib with RVR, and severe volume overload with expected hospitalization not to cross 2 midnights for IV diuresis, pain control, and supportive care. Coding Level of Care Code Acute Code for [facility] Diagnoses Rib pain R07.81 Atrial fibrillation with rapid ventricular response I48.91 Cellulitis L03.90 Congestive heart failure I50.9 Heart failure chronicity: chronic Heart failure type: unspecified Chronic hypoxic respiratory failure J96.11
[2024-09-11] VITALS (12 sets, daily range): BP systolic 89–122; BP diastolic 47–80; PULSE 23–108; RESP 17–23; TEMP 36.5–37; O2SAT 89–99
[2024-09-11 00:19] LABS: Procalcitonin 0.08 ng/mL (0-0.5)
--- NOTE | 2024-09-11 01:15 | PC.NURSE ---
pt was only accepting to have another iv started if it was ultrasound guided. er had a nurse come down and attempt. 2 attempts unsuccessful. pt told nurse to stop.
--- NOTE | 2024-09-11 01:49 | PC.NURSE ---
upon admission assessment, lab came to draw and pt adamantly refused. said he was a hard stick and he wasn't going to be stuck over and over again. physician notified of refusal and stated ok. physician also said if pt is refusing blood work pt will not get the lasix. when pt was told he wouldn't get the lasix pt stated it doesn't make to refuse me lasix when i need it and to punish me because I refuse blood draw I then educated pt on why it was important for the lab draws and he wouldn't accept it. said I was just double talking.
[2024-09-11] MEDS: morphine 4 mg/mL SDV 1 mL IVP ×2 (02:06→22:01)
--- NOTE | 2024-09-11 03:30 | PC.NURSE ---
iv continued to downstream occlude nurse attempted to flush and wasn't successful. had another nurse attempt. no luck. iv removed. pt is now refusing any and all sticks.
[2024-09-11 04:34] LABS: MRSA PCR OZH (swab) MRSA Detected (Negative)
[2024-09-11] MEDS: ipratropium-albuterol 3 mL Neb INHALATION ×2 (08:11→19:59)
[2024-09-11] MEDS: budesonide 0.5 mg/2 mL Neb INHALATION ×2 (08:11→19:59)
--- NOTE | 2024-09-11 08:20 | PC.PHAR ---
patient confirmed all meds but should be out of alot of them if he takes as he should. he seemed to be very groggy when answering medications, pharmacy fill dates confirm
[2024-09-11] MEDS: metoprolol tartrate 50 mg Tablet 25 MG PO ×2 (08:58→17:50)
[2024-09-11] MEDS: HYDROcodone-acetaminophen 5-325 mg Tablet 1 TAB PO ×2 (08:59→16:24)
[2024-09-11] MEDS: buPROPion XL (24 HR) 150 mg Tablet PO (08:59)
[2024-09-11] MEDS: amiodarone 200 mg Tablet 400 MG PO (08:59)
[2024-09-11] MEDS: tamsulosin 0.4 mg Capsule PO (08:59)
--- NOTE | 2024-09-11 09:52 | PC.NURSE ---
primary nurse asked if i would be able to i obtain an IV due to patient refusal of care, This nurse was able to obtain IV access patient was cooperative with this nurse however is agitated with other staff in room.
[2024-09-11 09:56] LABS: Basophils % 0.2 %; Eosinophils # 0.2 10^3/uL (0.0-0.8); Eosinophils % 2.7 %; Hematocrit 42.3 % (37-53); Lymphocytes # 1.2 10^3/uL (0.8-4.8); Lymphocytes % 13.2 %; Mean Corpuscular HGB Conc 29.1 g/dL (30-55); Mean Corpuscular Hemoglobin 27.3 pg (27-33); Mean Corpuscular Volume 93.8 fl (82-101); Mean Platelet Volume 9.5 fL (7.4-10.4); Monocytes # 0.8 10^3/uL (0.2-0.9); Monocytes % 9.2 %; Neutrophils # 6.49 10^3/uL (1.8-7.7); Neutrophils % 74.4 %; Nucleated Red Blood Cells % 0 %; Platelet Count 257 10^3/cmm (157-399); Red Blood Count 4.51 10^6/uL (3.85-5.65); Red Cell Distribution Width 17.5 % (12.1-15.1); White Blood Count 8.73 10^3/uL (3.29-11.43)
--- NOTE | 2024-09-11 10:06 | PC.CHAP ---
Pastoral Care Encounter/Spiritual Assessment Type of Contact [] Declined latex dipper visit [] Patient/Family/Request visit [] Outpatient visit [] Follow-up visit [] Physician referral [] Code/Alert [x] Routine visit [] Staff referral [] Actively dying [] Patient sleeping [] Family support [] [] Out of room [] Palliative care [] [] Receiving care in room [] Pre-surgical visit [] Trauma [] Long length of stay [] ICU visit [] Other: Relational/Emotional Strength [x] Patient feels connected with others/family/visitors/staff [x] Distress [] Loneliness/isolation [] Abandonment Spirituality of Patient [] Person of Xenia [] Attends Tenriism of their Xenia [] Believes in Prayer [] Reads Bible or Taoist materials [] There are Spiritual issues to be addressed Welding Lead Burner Interventions [x] Prayer [x] Active listening [x] Non-anxious presence [x] Spiritual/emotional support [] Crisis/trauma care [] Spiritual counseling [] Bereavement support [] Provided bereavement packet [] Provided Bible/devotional materials [] Provided toy/stuffed animal, coloring book to patient or family member [] Provided Communion [] Anointing/Warren [] Salvation [x] Completed spiritual assessment [] Other: Impact on Illness or Injury [] Angry [] Fearful [x] Anxious [] Often cries [] Exhaustion [] Unable to work [] Unable to attend pentecostalism [] Unable to walk/stand [] Unable to read [] Unable to drive [] Unable to eat/drink [] Unable to sleep [] Unable to be with family [] Patient intubated [] Other: Summary Time spent with patient 5 min
[2024-09-11 10:22] LABS: Anion Gap 8.7 (5-19); Blood Urea Nitrogen 13 mg/dL (8-23); Calcium 9.7 mg/dL (8.5-10.5); Carbon Dioxide 33 mmol/L (22-29); Chloride 100 mmol/L (98-107); Glomerular Filtration Rate 113.2 mL/min (90-130); Glucose 151 mg/dL (65-115); Magnesium 1.5 mg/dL (1.7-2.3); Osmolality Calculated 287 mOsm/kg (285-295); Phosphorus 3.7 mg/dL (2.5-4.5); Potassium 4.7 mmol/L (3.5-5.1); Sodium 137 mmol/L (136-145)
[2024-09-11] MEDS: FUROsemide 100 MG in sodium chloride 0.9% 40 ML 10 MG IV (11:04)
[2024-09-11] MEDS: cefepime 2,000 mg SDV 2000 MG IVP (12:06)
--- NOTE | 2024-09-11 15:59 | PC.NURSE ---
patient noted to be in disarray and naked in the bed. this nurse found patient to be confused and pulling on catheter reporting he needs to PEE O2 off and IV found intact in the floor, O2 replaced patient recovered and was alert new ivs placed and medication started back up and 2000 removed from [place] bag
--- NOTE | 2024-09-11 16:08 | P.PN_ITS ---
Subjective 2 Subjective: He is resting, wakes up to voice briefly, does not have any complaints or questions currently. Vitals/I&O/Wt Last Vital Signs Temp 97.7 F 09/11/24 12:00 Pulse 97 09/11/24 12:00 Resp 19 H 09/11/24 12:00 BP 110/80 09/11/24 12:00 Pulse Ox 89 L 09/11/24 12:00 O2 Del Method Nasal Cannula 09/11/24 12:00 O2 Flow Rate 6 09/11/24 08:14 09/11/24 09/11/24 09/11/24 06:59 14:59 22:59 Intake Total 721.25 / 740.00 840 / 840 Output Total 350 / 350 1200 / 1200 2000 / 3200 Balance 371.25 / 390.00 -360 / -360 -2000 / -2360 Weight last 48 hrs Weight 98.974 kg Weight 95.254 kg Weight 95.254 kg Weight 95.254 kg Physical Exam 2 Const: COMMON NORMALS: patient oriented x3 and alert GENERAL APPEARANCE: c ooperative ORIENTATION/CONSCIOUSNESS: Yes awake HENMT: COMMON NORMALS: oropharynx normal Neck/C-Spine: COMMON NORMALS: no JVD Resp: COMMON NORMALS: normal respiratory effort and clear to auscultation bilaterally AUSCULTATION: clear to auscultation bilaterally Cardio: COMMON NORMALS: no JVD, regular rhythm, S1 normal heart sound present, S2 normal heart sound present and No murmurs present (Cardio) RHYTHM: regular rhythm HEART SOUNDS: S1 normal heart sound present and S2 normal heart sound present GI: COMMON NORMALS: Normal to inspection, nondistended, normoactive bowel sounds present, Soft to palpation and non-tender PALPATION: Yes Soft to palpation Extremity: COMMON NORMALS: no joint enlargement OTHER: Anasarca with severe bilateral lower extremity edema, upper extremity edema, diffuse erythema of upper and lower extremities in dependent areas. Neuro: COMMON NORMALS: patient oriented x3 and moves all extremities S ENSORIUM/ORIENTATION: Yes alert Skin: OTHER: Diffuse erythema of upper and lower extremities. Urinary Catheter Management: Knight: Cath Placed During This Visit: yes Reason for Continuing Indwelling Catheter: Accurate Measurement of Urinary Output in Critically Ill Patients Urinary Catheter Date of Insertion: 09/10/24 Data 09/11/24 09:45 09/11/24 09:45 Micro: Microbiology 09/10/24 17:40 Blood Culture - Preliminary Blood SPECIMEN COLLECTED 09/10/24 17:28 Blood Culture - Preliminary Blood SPECIMEN COLLECTED A&P Assessment and plan (1) Congestive heart failure: Has been started on Lasix drip, produced 3200 mL of urine so far. Decrease drip rate to 10 mg/h. Continue to monitor intake and output. Reassess chemistry, monitor for risk of electrolyte deficiency, JEAN. Supplement magnesium. Recheck level. Recheck BMP. Reviewed vitals, CBC, CMP, magnesium, CK, troponin, procalcitonin. Discussed with nursing, family service caseworker, respiratory therapy. Acute on chronic heart failure with preserved ejection fraction exacerbation Patient severely volume overloaded Knight catheter for strict I's and O's Daily weights Supportive care Qualifiers: Heart failure chronicity: chronic Heart failure type: unspecified Qualified Code(s): I50.9 - Heart failure, unspecified (2) Cellulitis: Erythema of upper and lower extremities, lower chest cellulitis, has been empirically started on cefepime. Without leukocytosis, afebrile, procalcitonin unremarkable. Inflammatory markers are elevated. If no further deterioration of condition suggest acute infection, may discontinue to biotics. Continue diuresis as above due to severe volume overload. Patient has significant erythema in all 4 extremities, worse in lower extremities Cellulitis in all 4 extremities would be highly unlikely (3) Rib pain: Currently pain under control. Continue acetaminophen, hydrocodone as needed for moderate pain, morphine IV as needed for severe breakthrough. Add incentive spirometer. Right-sided rib pain secondary to multiple right sided rib fractures complicated by suspected intraparenchymal hematoma Imaging reviewed Analgesics ordered Supportive care (4) Atrial fibrillation with rapid ventricular response: Reviewed heart rate. Stop Cardizem drip. Continue metoprolol and amiodarone. Hold home apixaban due to intraparenchymal hematoma and hemoptysis Continue telemetry monitoring Monitor electrolytes (5) Chronic hypoxic respiratory failure: Chronic hypoxic respiratory failure on 6 L baseline Patient is currently requiring his baseline oxygen Encourage pulmonary toilet Plan DVT prophylaxis: Apixaban on hold due to reported hemoptysis. SCDs not used on upper or lower extremities due to severe anasarca, erythema, possible cellulitis, await further skin damage. Attestations 2 Medical Necessity Statement*: Continue admission for assessment and management of decompensated CHF, possible cellulitis, intraparenchymal hematoma, holding anticoagulation and gentleman with chronic respiratory failure, atrial fibrillation. and High MDM includes amount and/or complexity of data reviewed/ordered [ resulted lab(s)/test(s), ordered lab(s)/test(s) and other healthcare professional discussion] and described risk of complication, morbidity or mortality of management as documented Diagnoses Congestive heart failure I50.9 Heart failure chronicity: chronic Heart failure type: unspecified Cellulitis L03.90 Rib pain R07.81 Atrial fibrillation with rapid ventricular response I48.91 Chronic hypoxic respiratory failure J96.11
[2024-09-11] MEDS: FUROsemide 100 MG in sodium chloride 0.9% 40 ML IV (16:46)
[2024-09-11] MEDS: magnesium sulfate premix 4 GM/100 ML PREMIX IV (17:15)
--- NOTE | 2024-09-11 18:36 | PC.NURSE ---
pt has been sleeping for several hours..awakens with stimulation.vss.o2 sat wnl's on 6l o2 per nc.dr junior notified of this and his urine output.he instructed to pause lasix drip for night and resume tomorrow morning at 0630.
[2024-09-11] MEDS: sennosides 8.6 mg Tablet 17.2 MG PO (20:52)
[2024-09-12] VITALS (12 sets, daily range): BP systolic 90–132; BP diastolic 58–90; PULSE 94–107; RESP 17–28; TEMP 36.4–37.2; O2SAT 90–98
[2024-09-12] MEDS: cefepime 2,000 mg SDV 2000 MG IVP (00:46)
[2024-09-12] MEDS: diphenhydrAMINE 25 mg Capsule PO (03:18)
--- NOTE | 2024-09-12 03:42 | PC.NURSE ---
about 2am pt awakened complaining of excessive itching all over. nurse and flame hardener use lotion on legs and arms, nurse notified doc and received new orders.
--- NOTE | 2024-09-12 03:54 | PC.NURSE ---
Addendum entered by Lindsey Busch RN 09/12/24 03:55: physician notified. Original Note: pt refused lab work and became very verbally abusive toward lab. lab didnt hear the inital refusal and he became loud and shouted obscenities.
[2024-09-12 07:01] LABS: Basophils % 0.1 %; Eosinophils # 0.2 10^3/uL (0.0-0.8); Eosinophils % 3.2 %; Hematocrit 40.4 % (37-53); Lymphocytes # 1.1 10^3/uL (0.8-4.8); Lymphocytes % 13.9 %; Mean Corpuscular Hemoglobin 27.6 pg (27-33); Mean Corpuscular Volume 92.2 fl (82-101); Mean Platelet Volume 9.2 fL (7.4-10.4); Monocytes # 0.8 10^3/uL (0.2-0.9); Monocytes % 10.8 %; Neutrophils # 5.45 10^3/uL (1.8-7.7); Neutrophils % 71.7 %; Nucleated Red Blood Cells % 0 %; Platelet Count 245 10^3/cmm (157-399); Red Blood Count 4.38 10^6/uL (3.85-5.65); Red Cell Distribution Width 16.4 % (12.1-15.1)
[2024-09-12 07:12] LABS: Anion Gap 8.6 (5-19); Blood Urea Nitrogen 20 mg/dL (8-23); Calcium 9.4 mg/dL (8.5-10.5); Carbon Dioxide 38 mmol/L (22-29); Chloride 93 mmol/L (98-107); Creatinine Clr Calc Pharmacy 111.9141; Glucose 128 mg/dL (65-115); Magnesium 1.8 mg/dL (1.7-2.3); Osmolality Calculated 284 mOsm/kg (285-295); Potassium 4.6 mmol/L (3.5-5.1); Sodium 135 mmol/L (136-145)
[2024-09-12] MEDS: budesonide 0.5 mg/2 mL Neb INHALATION (07:51)
[2024-09-12] MEDS: ipratropium-albuterol 3 mL Neb INHALATION ×2 (07:51→13:26)
[2024-09-12] MEDS: tamsulosin 0.4 mg Capsule PO (08:15)
[2024-09-12] MEDS: amiodarone 200 mg Tablet 400 MG PO (08:15)
[2024-09-12] MEDS: HYDROcodone-acetaminophen 5-325 mg Tablet 1 TAB PO ×3 (08:15→22:06)
[2024-09-12] MEDS: metoprolol tartrate 50 mg Tablet 25 MG PO ×2 (08:15→18:23)
[2024-09-12] MEDS: magnesium sulfate premix 2 GM/50 ML PIGGYBACK IV (09:10)
[2024-09-12] MEDS: morphine 4 mg/mL SDV 1 mL IVP ×2 (11:10→20:19)
--- NOTE | 2024-09-12 15:09 | P.PN_ITS ---
Subjective 2 Subjective: This morning he was alert, but was having pain and received pain medication. He is asleep during my visit. Vitals/I&O/Wt Last Vital Signs Temp 97.6 F 09/12/24 12:00 Pulse 100 09/12/24 13:27 Resp 18 09/12/24 13:27 BP 132/82 09/12/24 12:00 Pulse Ox 92 09/12/24 13:27 O2 Del Method Nasal Cannula 09/12/24 13:27 O2 Flow Rate 6 09/12/24 13:27 09/12/24 09/12/24 09/12/24 06:59 14:59 22:59 Intake Total 240 / 1189.167 600 / 600 Output Total 400 / 6000 Balance -160 / -4810.833 600 / 600 Weight last 48 hrs Weight 98.475 kg Weight 98.475 kg Weight 98.974 kg Weight 95.254 kg Weight 95.254 kg Weight 95.254 kg Physical Exam 2 Const: COMMON NORMALS: patient oriented x3 and alert GENERAL APPEARANCE: c ooperative ORIENTATION/CONSCIOUSNESS: Yes awake HENMT: COMMON NORMALS: oropharynx normal Neck/C-Spine: COMMON NORMALS: no JVD Resp: COMMON NORMALS: normal respiratory effort and clear to auscultation bilaterally AUSCULTATION: clear to auscultation bilaterally Cardio: COMMON NORMALS: no JVD, regular rhythm, S1 normal heart sound present, S2 normal heart sound present and No murmurs present (Cardio) RHYTHM: regular rhythm HEART SOUNDS: S1 normal heart sound present and S2 normal heart sound present GI: COMMON NORMALS: Normal to inspection, nondistended, normoactive bowel sounds present, Soft to palpation and non-tender PALPATION: Yes Soft to palpation Extremity: COMMON NORMALS: no joint enlargement OTHER: Improving anasarca with improving bilateral lower and upper extremity edema, diffuse erythema of upper and lower extremities is improving/resolving Neuro: COMMON NORMALS: patient oriented x3 and moves all extremities S ENSORIUM/ORIENTATION: Yes alert Skin: OTHER: Diffuse erythema of upper and lower extremities. Urinary Catheter Management: Knight: Cath Placed During This Visit: yes Reason for Continuing Indwelling Catheter: Accurate Measurement of Urinary Output in Critically Ill Patients Urinary Catheter Date of Insertion: 09/10/24 Data 09/12/24 06:45 09/12/24 06:45 Micro: Microbiology 09/10/24 17:40 Blood Culture - Preliminary Blood NEGATIVE TO DATE 09/10/24 17:28 Blood Culture - Preliminary Blood NEGATIVE TO DATE A&P Assessment and plan (1) Congestive heart failure: She is so far responding well to diuresis with Lasix drip. In negative balance. Edema of upper and lower extremities is improving as is erythema. Reviewed vitals, CBC, BMP, magnesium. Will give additional magnesium supplementation. Recheck levels. Monitor with diuresis with risk electrolyte deficiency. Monitor on telemetry. Monitor JEN. With improving symptoms will discontinue antibiotics, monitor for any worsening. Continues on 6 L of oxygen. Discussed with case management. If continues to improve, may be nearing ability to discharge home. Acute on chronic heart failure with preserved ejection fraction exacerbation Patient severely volume overloaded Knight catheter for strict I's and O's Daily weights Supportive care Qualifiers: Heart failure chronicity: chronic Heart failure type: unspecified Qualified Code(s): I50.9 - Heart failure, unspecified (2) Cellulitis: Erythema is improving in upper and lower extremities with diminishing edema and improving congestive heart failure. He additionally developed an episode of itching after infusion of cefepime last night. Discontinue to biotics. Monitor condition for any worsening. Erythema of upper and lower extremities, lower chest cellulitis, has been empirically started on cefepime. Without leukocytosis, afebrile, procalcitonin unremarkable. Inflammatory markers are elevated. If no further deterioration of condition suggest acute infection, may discontinue to biotics. Continue diuresis as above due to severe volume overload. Patient has significant erythema in all 4 extremities, worse in lower extremities Cellulitis in all 4 extremities would be highly unlikely (3) Rib pain: Still having rib pain, required hydrocodone. Subsequently sleeping. Reassess oxygenation, reassess blood count with intraparenchymal hematoma. Continue to hold anticoagulation. Incentive spirometer. Right-sided rib pain secondary to multiple right sided rib fractures complicated by suspected intraparenchymal hematoma Imaging reviewed Analgesics ordered Supportive care (4) Atrial fibrillation with rapid ventricular response: Reviewed heart rate. Stop Cardizem drip. Continue metoprolol and amiodarone. Hold home apixaban due to intraparenchymal hematoma and hemoptysis Continue telemetry monitoring Monitor electrolytes (5) Chronic hypoxic respiratory failure: Chronic hypoxic respiratory failure on 6 L baseline Patient is currently requiring his baseline oxygen Encourage pulmonary toilet Plan DVT prophylaxis: Apixaban on hold due to reported hemoptysis. SCDs not used on upper or lower extremities due to severe anasarca, erythema, possible cellulitis, await further skin damage. Attestations 2 Medical Necessity Statement*: Continue admission for assessment and management of decompensated CHF, possible cellulitis, intraparenchymal hematoma, holding anticoagulation and gentleman with chronic respiratory failure, atrial fibrillation. and High MDM includes amount and/or complexity of data reviewed/ordered [ resulted lab(s)/test(s), ordered lab(s)/test(s) and other healthcare professional discussion] and described risk of complication, morbidity or mortality of management as documented Diagnoses Congestive heart failure I50.9 Heart failure chronicity: chronic Heart failure type: unspecified Cellulitis L03.90 Rib pain R07.81 Atrial fibrillation with rapid ventricular response I48.91 Chronic hypoxic respiratory failure J96.11
[2024-09-12] MEDS: FUROsemide 100 MG in sodium chloride 0.9% 40 ML IV (16:23)
[2024-09-12] MEDS: saline nasal spray 44mL Btl 1 SPRAY NASAL (16:27)
[2024-09-12] MEDS: diphenhydrAMINE 50 mg/mL SDV 1mL 25 MG IVP (22:07)
[2024-09-12] MEDS: sennosides 8.6 mg Tablet 17.2 MG PO (22:10)
[2024-09-13] VITALS (14 sets, daily range): BP systolic 75–117; BP diastolic 51–76; PULSE 96–123; RESP 17–26; TEMP 36.6–37.2; O2SAT 90–98
--- NOTE | 2024-09-13 00:41 | PC.NURSE ---
Patient complaining of extreme itching. Notified Dr. Zapata, given order for A one time order of Benadryl 25mg IVP.
[2024-09-13] MEDS: morphine 4 mg/mL SDV 1 mL IVP ×4 (02:29→20:40)
[2024-09-13] MEDS: FUROsemide 100 MG in sodium chloride 0.9% 40 ML IV ×2 (02:29→08:15)
--- NOTE | 2024-09-13 06:16 | PC.NURSE ---
Patient refused morning lab draw and 0600 dose of Buproprion.
[2024-09-13] MEDS: HYDROcodone-acetaminophen 5-325 mg Tablet 1 TAB PO ×2 (06:47→22:24)
[2024-09-13] MEDS: ipratropium-albuterol 3 mL Neb INHALATION ×3 (07:50→22:29)
[2024-09-13] MEDS: budesonide 0.5 mg/2 mL Neb INHALATION ×2 (07:50→22:29)
[2024-09-13] MEDS: amiodarone 200 mg Tablet 400 MG PO (08:15)
[2024-09-13] MEDS: tamsulosin 0.4 mg Capsule PO (08:15)
[2024-09-13] MEDS: metoprolol tartrate 50 mg Tablet 25 MG PO (08:15)
[2024-09-13] MEDS: acetaminophen 1,000 MG/100 ML PIGGYBACK 400 MG IV (10:27)
[2024-09-13] MEDS: albumin 25 G/100 ML BAG 60 G IV (15:22)
[2024-09-13] MEDS: bumetanide 1 mg Tablet PO (15:23)
[2024-09-13] MEDS: acetaminophen 325 mg Tablet 650 MG PO ×2 (15:24→20:38)
--- NOTE | 2024-09-13 19:44 | PM.PN ---
Subjective Subjective: She reports having pain in his rib cage which is severe and bothersome, and request for escalating pain medication. Discussed with him scheduling acetaminophen, adding lidocaine patch, adding cool or heat pack. Discussed with him that due to safety concerns with his condition including hypotension, as well as mental status changes, lethargy through many parts of the day over the last several days we are unable to increase opiate dosing. He becomes upset, again rec repeatedly asking to escalate the medication dosing., Blood pressure 87/65. Upon further discussion of the concerns he then instead requested to start Benadryl. Discussed with him again similar concerns with regards to hypotension, mental status changes. Discussed unfortunately we cannot start Benadryl due to likelihood of harm. After the visit is over he request for a second opinion. Upon additional discussion with him with regards to this, with assisted living nursing director present, he clarifies that he misunderstood that the above measures would be added on top of the current regimen and states that the second opinion will not be needed. He is okay with a dose of intravenous Tylenol. Vitals/I&O/Wt Last Vital Signs Temp 98.6 F 09/13/24 16:00 Pulse 111 H 09/13/24 16:00 Resp 18 09/13/24 16:00 BP 117/63 09/13/24 16:00 Pulse Ox 90 09/13/24 16:00 O2 Del Method Nasal Cannula 09/13/24 16:00 O2 Flow Rate 6 09/13/24 13:16 09/13/24 09/13/24 09/13/24 06:59 14:59 22:59 Intake Total 530 / 2250.833 968.833 / 968.833 700 / 1668.833 Output Total 950 / 950 Balance 530 / -2549.167 968.833 / 968.833 -250 / 718.833 Weight last 48 hrs Weight 94.801 kg Weight 98.475 kg Weight 98.475 kg Physical Exam Const: COMMON NORMALS: patient oriented x3 and alert GENERAL APPEARANCE: cooperative ORIENTATION/CONSCIOUSNESS: Yes awake HENMT: COMMON NORMALS: oropharynx normal Neck/C-Spine: COMMON NORMALS: no JVD Resp: COMMON NORMALS: normal respiratory effort and clear to auscultation bilaterally AUSCULTATION: clear to auscultation bilaterally Cardio: COMMON NORMALS: no JVD, regular rhythm, S1 normal heart sound present, S2 normal heart sound present and No murmurs present (Cardio) RHYTHM: regular rhythm HEART SOUNDS: S1 normal heart sound present and S2 normal heart sound present GI: COMMON NORMALS: Normal to inspection, nondistended, normoactive bowel sounds present, Soft to palpation and non-tender PALPATION: Yes Soft to palpation Extremity: COMMON NORMALS: no joint enlargement OTHER: Improving anasarca with improving bilateral lower and upper extremity edema, diffuse erythema of upper and lower extremities is improving/resolving Neuro: COMMON NORMALS: patient oriented x3 and moves all extremities SENSORIUM/ORIENTATION: Yes alert Skin: OTHER: Diffuse erythema of upper and lower extremities with improvement Urinary Catheter Management: Knight: Cath Placed During This Visit: yes Reason for Continuing Indwelling Catheter: Accurate Measurement of Urinary Output in Critically Ill Patients Urinary Catheter Date of Insertion: 09/10/24 Data 09/12/24 06:45 09/12/24 06:45 A&P Assessment and plan (1) Rib pain: Reporting bothersome left rib cage pain, requiring multiple doses of opioid including hydrocodone, IV morphine. On multiple occasions requesting for more pain medicine, however, on discussion of scheduling Tylenol, adding lidocaine patch, adding additional measures with cooling or heat, with concern regarding hypotension, as well as multiple lethargy episodes over the last several days with safety concerns of increasing opioids he is not happy with the plan. Additionally requesting for Benadryl, discussed with him similar concerns. However, later on in agreement to continue regimen as per plans. Continue to monitor blood pressures. Will request also for cough pillow. Discussed encouraged flutter valve due to increased secretions and limited cough. Discussed with respiratory therapy. Discussed with nursing. Continue expectoration assistance. Continue senna with risk of constipation. Reassess oxygenation, reassess blood count with intraparenchymal hematoma. Continue to hold anticoagulation. Incentive spirometer. Right-sided rib pain secondary to multiple right sided rib fractures complicated by suspected intraparenchymal hematoma Imaging reviewed Analgesics ordered Supportive care Continue oxygen support. (2) Atrial fibrillation with rapid ventricular response: Today with worsening heart rate in the morning. Continues with metoprolol, amiodarone. Blood pressure soft. Heart rate improved during the day, but again tachycardia in the evening 119. Will give 1 dose of IV digoxin 250 mcg. Continue oral medications. Reassess heart rate. Monitor blood pressure which has been soft. Currently 94/73. Repeat chemistry, Recheck magnesium. Reviewed heart rate. Stop Cardizem drip. Continue metoprolol and amiodarone. Hold home apixaban due to intraparenchymal hematoma and hemoptysis Continue telemetry monitoring Monitor electrolytes (3) Congestive heart failure: With good improvement, reviewed vitals, intake and output. In good negative balance, additional -3 L this morning. Stop Lasix drip. Transition to oral diuretic. Continue to monitor intake and output. Reassess chemistry, renal function Monitor with diuresis with risk electrolyte deficiency. Monitor on telemetry. Monitor JEN. With improving symptoms will discontinue antibiotics, monitor for any worsening. Continues on 6 L of oxygen. Discussed with case management. If continues to improve, may be nearing ability to discharge home. Acute on chronic heart failure with preserved ejection fraction exacerbation Patient severely volume overloaded Knight catheter for strict I's and O's Daily weights Supportive care Qualifiers: Heart failure chronicity: chronic Heart failure type: unspecified Qualified Code(s): I50.9 - Heart failure, unspecified (4) Cellulitis: With good improvement with diuresis. Of antibiotic. Reassess. Erythema is improving in upper and lower extremities with diminishing edema and improving congestive heart failure. He additionally developed an episode of itching after infusion of cefepime last night. Discontinue to biotics. Monitor condition for any worsening. Erythema of upper and lower extremities, lower chest cellulitis, has been empirically started on cefepime. Without leukocytosis, afebrile, procalcitonin unremarkable. Inflammatory markers are elevated. If no further deterioration of condition suggest acute infection, may discontinue to biotics. Continue diuresis as above due to severe volume overload. Patient has significant erythema in all 4 extremities, worse in lower extremities Cellulitis in all 4 extremities would be highly unlikely (5) Chronic hypoxic respiratory failure: Chronic hypoxic respiratory failure on 6 L baseline Patient is currently requiring his baseline oxygen Encourage pulmonary toilet Plan DVT prophylaxis: Apixaban on hold due to reported hemoptysis. SCDs not used on upper or lower extremities due to severe anasarca, erythema, possible cellulitis, await further skin damage. Attestations Medical Necessity Statement*: Continue admission for assessment and management of severe rib pain after injury, decompensated CHF, possible cellulitis, intraparenchymal hematoma, holding anticoagulation and gentleman with chronic respiratory failure, atrial fibrillation. and High MDM includes amount and/or complexity of data reviewed/ordered [ resulted lab(s)/test(s), ordered lab(s)/test(s) and other healthcare professional discussion] and described risk of complication, morbidity or mortality of management as documented Diagnoses Rib pain R07.81 Atrial fibrillation with rapid ventricular response I48.91 Congestive heart failure I50.9 Heart failure chronicity: chronic Heart failure type: unspecified Cellulitis L03.90 Chronic hypoxic respiratory failure J96.11
[2024-09-13] MEDS: digoxin 250 mcg/ml INJ 2 mL IVP (20:37)
[2024-09-13] MEDS: lidocaine 5% Patch 1 PATCH TOPICAL (20:39)
[2024-09-14] VITALS: BP 93/75; PULSE 119; RESP 36; O2SAT 98
[2024-09-14 02:45] VITALS: RESP 17
[2024-09-14] MEDS: morphine 4 mg/mL SDV 1 mL IVP (02:45)
[2024-09-14] MEDS: acetaminophen 325 mg Tablet 650 MG PO ×2 (02:46→07:59)
[2024-09-14 04:00] VITALS: BP 122/77; PULSE 113; RESP 28; TEMP 36.9; O2SAT 98
[2024-09-14 05:37] LABS: Basophils % 0.4 %; Eosinophils # 0.3 10^3/uL (0.0-0.8); Eosinophils % 4.6 %; Hematocrit 41.5 % (37-53); Lymphocytes # 1.4 10^3/uL (0.8-4.8); Lymphocytes % 19.6 %; Mean Corpuscular HGB Conc 31.1 g/dL (30-55); Mean Corpuscular Hemoglobin 27.8 pg (27-33); Mean Corpuscular Volume 89.4 fl (82-101); Mean Platelet Volume 9.3 fL (7.4-10.4); Monocytes # 0.8 10^3/uL (0.2-0.9); Monocytes % 10.6 %; Neutrophils # 4.72 10^3/uL (1.8-7.7); Neutrophils % 64.3 %; Nucleated Red Blood Cells % 0 %; Platelet Count 281 10^3/cmm (157-399); Red Blood Count 4.64 10^6/uL (3.85-5.65); Red Cell Distribution Width 15.9 % (12.1-15.1); White Blood Count 7.35 10^3/uL (3.29-11.43)
[2024-09-14 05:56] LABS: Anion Gap 10.3 (5-19); Blood Urea Nitrogen 18 mg/dL (8-23); Calcium 9.4 mg/dL (8.5-10.5); Chloride 89 mmol/L (98-107); Creatinine Clr Calc Pharmacy 108.9135; Glomerular Filtration Rate 113.2 mL/min (90-130); Glucose 108 mg/dL (65-115); Osmolality Calculated 292 mOsm/kg (285-295); Potassium 3.3 mmol/L (3.5-5.1); Sodium 140 mmol/L (136-145)
[2024-09-14 06:04] LABS: Carbon Dioxide 44 mmol/L (22-29)
[2024-09-14] MEDS: tamsulosin 0.4 mg Capsule PO (07:59)
[2024-09-14] MEDS: bumetanide 1 mg Tablet PO (07:59)
[2024-09-14] MEDS: amiodarone 200 mg Tablet 400 MG PO (07:59)
[2024-09-14 08:00] VITALS: BP 92/69; PULSE 96; RESP 20; TEMP 36.9; O2SAT 92
[2024-09-14] MEDS: HYDROcodone-acetaminophen 5-325 mg Tablet 1 TAB PO (08:00)
[2024-09-14] MEDS: metoprolol tartrate 50 mg Tablet 25 MG PO (08:00)
[2024-09-14] MEDS: buPROPion XL (24 HR) 150 mg Tablet PO (08:00)
[2024-09-14] MEDS: ondansetron 2 mg/ML SDV 2 mL 4 MG IVP (08:14)
[2024-09-14] MEDS: budesonide 0.5 mg/2 mL Neb INHALATION (08:21)
[2024-09-14] MEDS: ipratropium-albuterol 3 mL Neb INHALATION (08:21)
[2024-09-14 08:24] VITALS: PULSE 105; RESP 20; O2SAT 95
[2024-09-14] MEDS: potassium chloride ER 20 mEq Tablet PO (09:09)
[2024-09-14] MEDS: lidocaine 5% Patch 1 PATCH TOPICAL (09:11)
--- NOTE | 2024-09-14 11:52 | PC.NURSE ---
Dc instructions an appointments provided to patient, patient verbalized understanding of all instructions medications provided at discharge patient assisted to personall wheel chair and accompanied by staff to Private vehicle all belongings in hand
[2024-09-14 11:56] VITALS: BP 92/69; PULSE 93; RESP 20; O2SAT 97
--- NOTE | 2024-09-14 13:04 | ECG_ITS ---
[facility] Test Date: 2024-09-14 Pat Name: Gareth Pickering Department: Room: 111 Gender: Male Director Of Recruitment And Admissions: : 1960 Requested By: Donn Rae Order Number: [id number] Natalya MD: Tino Lowery M.D. Measurements Intervals [place] Rate: 106 P: 0 TN: 0 QRS: 68 QRSD: 118 T: 30 QT: 374 QTc: 498 Interpretive Statements ATRIAL FIBRILLATION WITH RAPID VENTRICULAR RESPONSE INCOMPLETE RIGHT BUNDLE BRANCH BLOCK [90+ ms QRS DURATION, TERMINAL R IN V1/V2, 40+ ms S IN I/aVL/V4/V5/V6] MODERATE ST DEPRESSION [0.05+ mV ST DEPRESSION] Compared to ECG 09/10/2024 16:42:07 ST (T wave) deviation now present Myocardial infarct finding no longer present Electronically Signed On 09-14-2024 19:43:44 RACE RELATIONS ADVISER by Tino Lowery M.D. [email or web address]
== END 2024-09-14 11:55 | disposition home or self-care (01) ==
LOC: ER 20:51 → CSU 22:22
PROVIDERS: Family Medicine; Admitting Provider Internal Medicine; Emergency Provider Emergency Medicine; PCP Family Medicine; Visit Provider Internal Medicine
DX: I11.0 Hypertensive heart disease with heart failure (principal); I50.9 Heart failure, unspecified; I48.91 Unspecified atrial fibrillation; R07.81 Pleurodynia; L03.90 Cellulitis, unspecified; J96.11 Chronic respiratory failure with hypoxia; J44.9 Chronic obstructive pulmonary disease, unspecified; Z99.81 Dependence on supplemental oxygen; Z91.199 Patient's noncompliance with other medical treatment and regimen due to unspecified reason; Z91.81 History of falling; E78.5 Hyperlipidemia, unspecified; F17.210 Nicotine dependence, cigarettes, uncomplicated
CPT/HCPCS: 36415; 51702; 71101; 71250; 80048; 80053; 81001; 82550; 83605; 83735; 83880; 84100; 84145; 84484; 85025; 85651; 86140; 87040; 93005; 94640; 96365; 96366; 96367; 96375; 96376; 99285; G0378; J0131; J0692; J1160; J1200; J1940; J2270; J2405; J3475; J3490; J7626; P9046

== ENCOUNTER 2024-09-14 12:59 | Observation (INO) | payer MEDICARE, MEDICAID, SELFPAY ==
[2024-09-14] VITALS (8 sets, daily range): BP systolic 92–115; BP diastolic 58–76; PULSE 85–109; RESP 17–24; TEMP 36.4–37.1; O2SAT 92–96; BMI 27.1; BMI 27.3
--- NOTE | 2024-09-14 13:10 | PC.PHAR ---
patient was just discharged this morning with new meds and then came back to the ER used med list from that
--- NOTE | 2024-09-14 13:35 | ED_ITS ---
HPI - Weakness General: Chief complaint: Weakness Stated complaint: weakness Time Seen by Provider: 09/14/24 13:02 History of Present Illness: Patient presents to the ER by EMS after being discharged earlier today reports weakness. Patient stated he cannot stand or walk and needs to be readmitted to the hospital. Otherwise his only complaint is nausea which he was given 4 mg of Zofran for. Review of Systems General: Reports: 10 or more systems reviewed and unremarkable except in HPI and below PFSH ED PFSH: Medical History Staphylococcus epidermidis bacteremia Respiratory acidosis Tobacco abuse counseling Chronic neck pain Congestion of throat Diarrhea Open wound of scrotum Sepsis Coag negative Staphylococcus bacteremia Acute on chronic respiratory failure with hypoxia and hypercapnia Abrasion, right lower leg, initial encounter Penile rash Rash of groin Exertional chest pain Congestive heart failure Moderate tricuspid regurgitation Mitral valve prolapse Hyperkalemia Acute hyperkalemia Oxygen dependent Non-compliance Substance abuse Moderate tobacco use disorder Bladder incontinence Lower extremity edema End stage COPD Smoker Tobacco use disorder Heart failure with mildly reduced ejection fraction (HFmrEF) Right heart failure with reduced right ventricular function Rib deformity Acute and chronic respiratory failure with hypoxia Atrial fibrillation with RVR Acute exacerbation of chronic obstructive airways disease Hyperlipidemia Atrial fibrillation COPD (chronic obstructive pulmonary disease) Surgical History History of colon surgery Family History Other CAD (coronary artery disease) Hypertension Lung disease Denies family history of Diabetes Clotting disorder Dementia Hyperlipidemia Psychiatric illness Chronic kidney disease (CKD) Anesthesia complication Bleeding disorder Cancer Stroke Social History Smoking and tobacco/nicotine status: current every day tobacco/nicotine user cigarettes Packs smoked per day: 0.5 Alcohol intake: former Substance/Drug Use: never Lives independently: Yes Current occupational status: disabled Current gender identity: Male Special jeri needs: No Agree to transfusion: Yes Physical Exam Const: COMMON NORMALS: no acute distress, average body habitus, patient oriented x3, no limitations, healthy appearing, alert and well nourished HENMT: COMMON NORMALS: normocephalic, atraumatic, hearing grossly normal bilaterally, external ears normal, Normal external nose present and moist oral mucous membranes HEAD & SCALP: normocephalic and atraumatic NOSE: Normal external nose present EXTERNAL EAR: Yes external ears normal Neck/C-Spine: COMMON NORMALS: no JVD Chest: COMMONS NORMALS: normal inspection of the chest and normal palpation of entire chest wall Resp: COMMON NORMALS: normal respiratory effort, No retractions, No use of accessory muscles and clear to auscultation bilaterally AUSCULTATION: clear to auscultation bilaterally Cardio: COMMON NORMALS: no JVD, S1 normal heart sound present, No gallops present (Cardio), No clicks present (Cardio) and No rub (Cardio); negative for regular rate (Irregularly irregular) and negative for regular rhythm RATE: abnormal rate (Irregularly irregular) RHYTHM: abnormal rhythm HEART SOUNDS: S1 normal heart sound present GI: COMMON NORMALS: Normal to inspection, nondistended, normoactive bowel sounds present, Soft to palpation, non-tender, No hepatosplenomegaly present and no masses PALPATION: Yes Soft to palpation and Yes No hepatosplenomegaly present Neuro: COMMON NORMALS: patient oriented x3 SENSORIUM/ORIENTATION: Yes alert Course Vital Signs: Vital signs: Vital Signs Temperature 97.5 F L 09/14/24 13:00 Pulse Rate 109 H 09/14/24 14:07 Respiratory Rate 24 H 09/14/24 14:07 Blood Pressure 95/68 09/14/24 14:07 Pulse Oximetry 94 09/14/24 14:07 Oxygen Delivery Me thod Nasal Cannula 09/14/24 14:07 Oxygen Flow Rate 5 09/14/24 14:07 MDM - Weakness Medical Decision Making After discussing with the patient, Dr. Rae, and social work, we will admit for observation for probable long-term care/rehab placement Medical Records I reviewed the patient's medical records. Lab Data I reviewed the patient's lab results. All radiology interpretation(s) finalized by discharge Discharge Plan Discharge Patient Disposition: Placed in Observation Clinical Impression: Generalized weakness Coding Level of Care Code ED Accounts Payable Technician for Chg Fwd Related Data Home Medications Medication Instructions Recorded Confirmed albuterol sulfate 90 mcg/actuation 2 puff inhalation Q6H PRN 06/04/24 09/14/24 aerosol inhaler Shortness Of Breath bumetanide 1 mg tablet 1 mg PO BID 06/04/24 09/14/24 bupropion HCl 150 mg 24 hr tablet, 150 mg PO QAM 06/04/24 09/14/24 extended release tamsulosin 0.4 mg capsule 0.4 mg PO DAILY 06/04/24 09/14/24 metoprolol tartrate 50 mg tablet 25 mg PO BID 07/16/24 09/14/24 umeclidinium 62.5 mcg-vilanterol 1 inh inhalation DAILY 07/16/24 09/14/24 25 mcg/actuation powdr for inhalation (Anoro Ellipta) Previous Rx's Medication Instructions Recorded home fill oxygen concentrator #1 ea 04/19/23 motorized electric scooter #1 ea 04/26/23 pulse oxymeter #1 ea 04/26/23 Electric wheelchair #1 ea 05/04/23 ipratropium 0.5 mg-albuterol 3 mg 3 ml inhalation Q6H PRN shortness 11/21/23 (2.5 mg base)/3 mL nebulization of breath or wheezing 30 days #180 soln mL albuterol sulfate 2.5 mg/3 mL 2.5 mg (3 mL) inhalation Q6H PRN 04/27/24 (0.083 %) solution for nebulization shortness of breath or wheezing #180 mL apixaban 5 mg tablet (Eliquis) 5 mg PO BID #180 tabs 04/27/24 loperamide 2 mg capsule 2 mg PO Q6H PRN loose stool #30 04/27/24 caps mirabegron 25 mg tablet,extended 25 mg PO DAILY #90 tabs 04/27/24 release 24 hr ondansetron 4 mg disintegrating 4 mg PO Q8H PRN nausea and 04/27/24 tablet vomiting #60 tabs potassium chloride 10 mEq 20 meq (2 x 10 mEq) PO DAILY #180 04/27/24 tablet,extended release tabs acetaminophen 325 mg tablet 650 mg (2 x 325 mg) PO Q6H #30 tabs 09/14/24 amiodarone 200 mg tablet (Pacerone) 400 mg (2 x 200 mg) PO DAILY #90 09/14/24 tabs hydrocodone 5 mg-acetaminophen 325 1 tab PO Q8H PRN pain #15 tabs 09/14/24 mg tablet lidocaine 5 % topical patch 1 patch topical [id number] #30 ea 09/14/24 sennosides 8.6 mg tablet (senna) 17.2 mg (2 x 8.6 mg) PO BEDTIME 09/14/24 #30 tabs Allergies Allergy/AdvReac Type Severity Reaction Status Date / Time No Known Allergies Allergy Verified 09/14/24 13:13
--- NOTE | 2024-09-14 14:54 | PC.SOCIAL ---
CM to see patient, He had told CM at discharge that he was going home with a friend, but came back to ER stating his friend had dropped him off at his house and he just cant do it by himself he is agreeable to go to a SNF now. Doesnt have a preference. Will need to get auth so will need PT eval. Referrals sent to [facility], [place], [facility] and [facility] at this time. Patient wanting PT so cant go under his medicaid.
--- NOTE | 2024-09-14 15:06 | PC.SOCIAL ---
Placement. Referral faxed to [facility], and [facility] @ this time. [facility] is out of network w/ patients insurance. DA124 will need to be completed.
--- NOTE | 2024-09-14 16:09 | PC.NURSE ---
PT DOES NOT HAVE AN IV TO GO TO THE FLOOR. NURSE CALLED ACCEPTING PROVIDER AND HE DID NOT SEE THE NEED FOR THE NURSE TO PLACE AN IV BEFORE PT WAS TRANSFERRED TO FLOOR.
--- NOTE | 2024-09-14 16:51 | P.PN_ITS ---
Subjective Subjective: This morning he is feeling better, pain under control. Able to use incentive spirometer, flutter valve. Blood pressure on the soft side but maintaining in good range. Heart rates under control. He felt comfortable with discharge home. He had declined to pursue rehabilitation at SNF. He was taken home by his son. However, return to ER shortly after stating he realized he could not take care of himself, being too weak. He initially considered going back home with his ex-, however, in further discussion he was very worried about going to [facility] so that he does not end up staying there permanently. Discussing with him and his son the goals of rehabilitation at SNF prior to returning home, they are agreeable to pursue arrangements for SNF rehab. Vitals/I&O/Wt Last Vital Signs Temp 97.5 F L 09/14/24 13:00 Pulse 85 09/14/24 15:33 Resp 22 H 09/14/24 15:33 BP 104/76 09/14/24 15:33 Pulse Ox 92 09/14/24 15:33 O2 Del Method Nasal Cannula 09/14/24 15:33 O2 Flow Rate 5 09/14/24 15:33 Weight last 48 hrs Weight 90.718 kg Physical Exam Const: COMMON NORMALS: patient oriented x3 and alert GENERAL APPEARANCE: cooperative ORIENTATION/CONSCIOUSNESS: Yes awake HENMT: COMMON NORMALS: oropharynx normal Neck/C-Spine: COMMON NORMALS: no JVD Resp: COMMON NORMALS: normal respiratory effort and clear to auscultation bilaterally AUSCULTATION: clear to auscultation bilaterally Cardio: COMMON NORMALS: no JVD, regular rhythm, S1 normal heart sound present, S2 normal heart sound present and No murmurs present (Cardio) RHYTHM: regular rhythm HEART SOUNDS: S1 normal heart sound present and S2 normal heart sound present GI: COMMON NORMALS: Normal to inspection, nondistended, normoactive bowel sounds present, Soft to palpation and non-tender PALPATION: Yes Soft to palpation Extremity: COMMON NORMALS: no joint enlargement GENERAL: Yes edema (Trace) Neuro: COMMON NORMALS: patient oriented x3 and moves all extremities SENSORIUM/ORIENTATION: Yes alert Skin: OTHER: Resolving minimal diffuse erythema of upper and lower extremities with improvement Urinary Catheter Management: Knight: Cath Placed During This Visit: yes Reason for Continuing Indwelling Catheter: Accurate Measurement of Urinary Output in Critically Ill Patients Urinary Catheter Date of Insertion: 09/10/24 A&P Assessment and plan (1) Rib pain: With deconditioning after hospitalization, had declined SNF rehabilitation, but upon return home realized he could not manage, return to ER. On discussion agreeable to arrangements for rehabilitation, initiated by case management today, to be resumed on Tuesday. TTE if available, although discussed with him and his son usually not available in the weekend hospital. Discussed with case resource manager. Discussed with ER provider, ER reviewed ER provider note. Resuming incentive spirometer, flutter valve. Mobilize as tolerating twice daily. Fall precautions. For rib pain continue acetaminophen, lidocaine patch, provide cough pillow. Hydrocodone as needed. Continue bowel regimen with risk of constipation. Monitor oxygenation. (2) Atrial fibrillation with rapid ventricular response: Continue metoprolol, amiodarone. Recheck chemistry, magnesium. Reviewed heart rate. Stop Cardizem drip. Continue metoprolol and amiodarone. Hold home apixaban due to intraparenchymal hematoma and hemoptysis Continue telemetry monitoring Monitor electrolytes (3) Congestive heart failure: Continue Bumex, fluid restriction.Continue oxygen support. Monitor weights. Repeat chemistry, magnesium. Qualifiers: Heart failure chronicity: chronic Heart failure type: unspecified Qualified Code(s): I50.9 - Heart failure, unspecified (4) Cellulitis: Resolving now faint erythema after severe upper and lower extremity edema. Without leukocytosis, afebrile, procalcitonin unremarkable. Inflammatory markers are elevated. (5) Chronic hypoxic respiratory failure: Chronic hypoxic respiratory failure on 6 L baseline Patient is currently requiring his baseline oxygen Encourage pulmonary toilet Plan DVT prophylaxis: Apixaban on hold due to reported hemoptysis. SCDs Attestations Medical Necessity Statement*: Continue admission for assessment and management after severe rib pain after injury, decompensated CHF, possible cellulitis, intraparenchymal hematoma, holding anticoagulation and gentleman with chronic respiratory failure, atrial fibrillation, with deconditioning unable to manage at home, requiring rehabilitation, pending arrangements. and High MDM includes amount and/or complexity of data reviewed/ordered [ previous or external records, resulted lab(s)/test(s), ordered lab(s)/test(s) and other healthcare professional discussion] as documented Diagnoses Rib pain R07.81 Atrial fibrillation with rapid ventricular response I48.91 Congestive heart failure I50.9 Heart failure chronicity: chronic Heart failure type: unspecified Cellulitis L03.90 Chronic hypoxic respiratory failure J96.11
[2024-09-14] MEDS: acetaminophen 325 mg Tablet 650 MG PO (18:08)
[2024-09-14] MEDS: apixaban 5 mg Tablet PO (18:08)
[2024-09-14] MEDS: metoprolol tartrate 50 mg Tablet 25 MG PO (18:10)
[2024-09-14] MEDS: sennosides 8.6 mg Tablet 17.2 MG PO (20:51)
[2024-09-14] MEDS: HYDROcodone-acetaminophen 5-325 mg Tablet 1 TAB PO (20:51)
[2024-09-14] MEDS: ipratropium-albuterol 3 mL Neb INHALATION (20:54)
[2024-09-15] VITALS (8 sets, daily range): BP systolic 91–115; BP diastolic 51–97; PULSE 87–111; RESP 16–20; TEMP 36.4–37; O2SAT 90–95
--- NOTE | 2024-09-15 02:45 | PC.NURSE ---
TYLENOL during evening med pass patient had asked what pain medication he had available. this nurse informed him that he had a prn hydrocodone 5/325mg q8h and a scheduled dose of po tylenol 650mg q6 that was coming up later in the evening. patient stated he wanted the hydrocodone. this nurse retrieved the pain medication and during administration the patient commented that he didn't want the tylenol later as it won't help. this nurse left the medication on the nov to potetially administer later if patient changed his mind. this nurse brought the medication several hours later and offered, patient still refused and tylenol was returned.
[2024-09-15] MEDS: acetaminophen 325 mg Tablet 650 MG PO ×4 (05:57→21:24)
[2024-09-15] MEDS: HYDROcodone-acetaminophen 5-325 mg Tablet 1 TAB PO ×2 (05:57→19:23)
[2024-09-15] MEDS: ipratropium-albuterol 3 mL Neb INHALATION ×2 (08:06→20:53)
--- NOTE | 2024-09-15 08:23 | PC.NURSE ---
PATIENT OUTBURST as day nurse and this headline writer approached the patients room it was noticed that his call light was on. upon entry to the patients room the patient was found to be reclined in a very low herndon position with bedside table over him. the breakfast tray on the table had a plate that was empty with an open milk carton. this nurse asked the patient what we could help him with since his light was on and introduced the day nurse. the patient began to complain, asking how he was supposed to eat his cream of wheat without any sugar and took the lid off. the day nurse Tawanna came closer to the bed and pointed to some packets that were on his table, to which the patient grabbed them up and began tearing them open while stating I don't understand why I wasn't helped when my breakfast came. No one came to sit me up and set up my tray. Isn't that what nurses are supposed to do? the patient proceeded to pour them into his bowl, adding milk and used his spoon to stir it. this headline writer and the day nurse Tawanna offered to help boost him higher in the bed since he had slid down some, and then this nurse pointed out the controls on the side rails that were up on either side of him, and explained which one could be pushed to raise the head of his bed up so next time he needed sat up he could do it himself. before both the day nurse and this headline writer could come toward the patient to boost him he snapped angrily stating, I have ribs broken, four fucking ribs and I can't move, I can't push those fucking buttons because it will hurt too much to do it . this nurse explained that he was given a pain pill less than two hours ago with scheduled tylenol and while it might still hurt some it was important for him to try and do as much for himself as possible since he was readmitted for weakness and SNF placement. the patient began to yell so vehemently at this nurse that particles of food were flying from his mouth. the patient shouted, shut up, just shut the fuck up with your yapping! you just keep going on and on and you should just shut the fuck up! get out, get the fuck out! . this nurse tried to explain that if he wanted placed in a facility and that was the goal of this admission, he would have to work with PT and do what he could for himself to be accepted somewhere. this nurse also informed him that this information was meant to educate and not agitate him, and while it might upset him, it was not appropriate for him to speak to this nurse that way. The patient continued to yell more obscenities, ordering this nurse out of the room. this nurse told the patient to have a good day and wished him well and as this nurse left the room the charge nurse rhys came into the room. this nurse stood across the cole from the patients room while the charge nurse addressed the commotion coming from his room. RT Medina Navarrete had been standing outside his room and had observed the entire thing and informed this headline writer of that fact as well. the patient began to apologize for his outburst, claiming that this nurse had antagonized him. the day nurse explained that he could be frustrated but that outburst and behavior was not acceptable. the charge and day nurse proceeded to boost up the patient higher in the bed. the patient asked for a second helping of breakfast and the charge said that she would contact dietary and both nurses left the room to join this headline writer in the cole.
[2024-09-15] MEDS: amiodarone 200 mg Tablet 400 MG PO (09:45)
[2024-09-15] MEDS: apixaban 5 mg Tablet PO ×2 (09:45→17:24)
[2024-09-15] MEDS: ondansetron 4 MG Tablet PO (09:45)
[2024-09-15] MEDS: bumetanide 1 mg Tablet PO ×2 (09:45→17:24)
[2024-09-15] MEDS: metoprolol tartrate 50 mg Tablet 25 MG PO ×2 (09:46→17:24)
[2024-09-15] MEDS: lidocaine 5% Patch 1 PATCH TOPICAL (09:46)
[2024-09-15] MEDS: potassium chloride ER 20 mEq Tablet PO (09:47)
[2024-09-15] MEDS: tamsulosin 0.4 mg Capsule PO (09:47)
[2024-09-15] MEDS: sennosides 8.6 mg Tablet 17.2 MG PO (19:56)
--- NOTE | 2024-09-15 20:28 | P.PN_ITS ---
Subjective Subjective: Before the visit he is reported to have been unhappy and requesting to have a Knight catheter placed, although has not had issues using the urinal and was seen getting up in the room. During the visit with him he immediately voices extreme displeasure in a loud tone with angry demeanor that his treatment is being half-assed because a urinary catheter is not being placed and that he will not diurese properly this way. We discussed with him as yesterday that his volume status and had been o ptimized during prior hospitalization, currently with with deconditioning to goal being further rehabilitation prior to return home. He apologizes shortly afterward about his anger outburst and his tone. On discussion with him open overall improvement in his volume status compared to at the beginning of the prior admission, as on examination his legs have only about trace edema, with wrinkling, some dry scales, his volume status overall appears to be in good condition currently, his oxygenation is better than baseline currently on 4.5 L compared to usual 6, although certainly with his congestive heart failure being a chronic condition he is at risk of further decompensation. Discussed with him risk of Knight catheter including infection and urethral injury. He has been able to use the urinal and so encouraged him to continue with continuation of his outpatient oral Bumex as preventive strategy which he would have been taking at home without the catheter, though overall his volume status is better. He interrupts and states that he disagrees, angrily exclaiming you got opinions, and opinions are like assholes . Discussed with him request to avoid raising his voice and using profanity which is not conducive to the therapeutic relationship. We discussed that we are trying to help him with his health condition but with the goal of making sure that he is safe, would like to work with his requests and preferences when possible to do so safely. Discussed that we have discussed with nursing staff and extra portions of food may be okay to help temporarily increase cardiac intake while he is recovering. He expressed extreme displeasure that he has lost confidence and that he will not do the fluid restriction of 1500 mL/day. Revisited with him regarding the purpose of f luid restriction, with congestive heart failure, risk of decompensation, fluid overload, discussed that he will feel worse in case of reaccumulation of fluid, and that this is part of treatment and preventive therapy to avoid getting him feeling like he did before. He agreed with the premise, however, stated that he will not comply with 1500 mL/day restriction, and that if they try to maintain this restriction he will explode on them . I asked him to refrain from making threats. Discussed with him he is here of his free well, we are here to try to help him. Discussed with him best effort of attempting to adhere to less than 2000 mL/day fluid intake to help reduce the chance of symptomatic decompensation to which he states okay . He states that his sleep was interrupted at night. I apologized and discussed with him that we will request to avoid vitals overnight. Vitals/I&O/Wt Last Vital Signs Temp 97.6 F 09/15/24 20:00 Pulse 95 09/15/24 20:00 Resp 18 09/15/24 20:00 BP 105/69 09/15/24 20:00 Pulse Ox 90 09/15/24 20:00 O2 Del Method Nasal Cannula 09/15/24 20:00 O2 Flow Rate 4 09/15/24 20:00 09/15/24 09/15/24 09/15/24 06:59 14:59 22:59 Intake Total 720 / 960 1440 / 1440 980 / 2420 Output Total 200 / 500 1 / 625 / 626 Balance 520 / 460 1439 / 1439 355 / 1794 Weight last 48 hrs Weight 93.395 kg Weight 93.259 kg Weight 91.308 kg Weight 90.718 kg Physical Exam Const: COMMON NORMALS: patient oriented x3 and alert GENERAL APPEARANCE: cooperative ORIENTATION/CONSCIOUSNESS: Yes awake HENMT: COMMON NORMALS: oropharynx normal Neck/C-Spine: COMMON NORMALS: no JVD Resp: COMMON NORMALS: normal respiratory effort and clear to auscultation bilaterally AUSCULTATION: clear to auscultation bilaterally Cardio: COMMON NORMALS: no JVD, regular rhythm, S1 normal heart sound present, S2 normal heart sound present and No murmurs present (Cardio) RHYTHM: regular rhythm HEART SOUNDS: S1 normal heart sound present and S2 normal heart sound present GI: COMMON NORMALS: Normal to inspection, nondistended, normoactive bowel sounds present, Soft to palpation and non-tender PALPATION: Yes Soft to palpation Extremity: COMMON NORMALS: no joint enlargement GENERAL: Yes edema (Trace ankle) Neuro: COMMON NORMALS: patient oriented x3 and moves all extremities SENSORIUM/ORIENTATION: Yes alert Psych: MOOD & AFFECT: Yes irritable and Yes hostile affect Skin: OTHER: Resolving minimal diffuse erythema of upper and lower extremities with i mprovement. Wrinkling, some dry scales over bilateral lower extremities. Urinary Catheter Management: Knight: Cath Placed During This Visit: yes Reason for Continuing Indwelling Catheter: Accurate Measurement of Urinary Output in Critically Ill Patients Urinary Catheter Date of Insertion: 09/10/24 A&P Assessment and plan (1) Physical deconditioning: Awaiting reassessment by physical therapy, although has been seen getting up in the room. Pending return of case management on Tuesday. Ambulate as tolerating. Maintain fall precautions. Continue preventive and therapeutic measures for his other conditions as he may allow. He has been requesting for double portions of food, discussed to a lower possible for now with temporarily increased caloric intake to aid in recovery. On his request requesting to avoid vitals/interruptions at night time. Requested that he avoid raising his voice and refrain from profane language. (2) Rib pain: With deconditioning after hospitalization, had declined SNF rehabilitation, but upon return home realized he could not manage, return to ER. On discussion agreeable to arrangements for rehabilitation, initiated by case management angelique stephens, to be resumed on Tuesday. PT if available, although discussed with him and his son usually not available in the weekend hospital. Continue incentive spirometer, flutter valve. Mobilize as tolerating twice daily. Fall precautions. For rib pain continue acetaminophen, lidocaine patch, provide cough pillow. Hydrocodone as needed. Continue bowel regimen with risk of constipation. Add MiraLAX. Monitor oxygenation. (3) Atrial fibrillation with rapid ventricular response: Reviewed vitals, heart rate, blood pressure. Continue metoprolol, amiodarone. Requested follow-up BMP and magnesium but he had refused. Reviewed heart rate. Stop Cardizem drip. Continue metoprolol and amiodarone. Hold home apixaban due to intraparenchymal hematoma and hemoptysis Continue telemetry monitoring Monitor electrolytes (4) Congestive heart failure: Continue Bumex, fluid restriction - as per discussion best effort to maintain fluid intake below 2 L. Continue oxygen support. Monitor weights. Repeat chemistry, magnesium. Qualifiers: Heart failure chronicity: chronic Heart failure type: unspecified Qualified Code(s): I50.9 - Heart failure, unspecified (5) Cellulitis: Resolving now faint erythema after improvement of severe upper and lower extremity edema. (6) Chronic hypoxic respiratory failure: Chronic hypoxic respiratory failure on 6 L baseline Patient is currently requiring his baseline oxygen Encourage pulmonary toilet Plan DVT prophylaxis: Apixaban on hold due to reported hemoptysis. SCDs Attestations Medical Necessity Statement*: Continue hospitalization for arrangements of rehabilitation due to physical deconditioning after severe rib pain after injury, CHF, intraparenchymal hematoma. Diagnoses Physical deconditioning R53.81 Rib pain R07.81 Atrial fibrillation with rapid ventricular response I48.91 Congestive heart failure I50.9 Heart failure chronicity: chronic Heart failure type: unspecified Cellulitis L03.90 Chronic hypoxic respiratory failure J96.11
[2024-09-16] VITALS (9 sets, daily range): BP systolic 94–120; BP diastolic 60–82; PULSE 69–104; RESP 16–20; TEMP 36.4–37; O2SAT 90–97
[2024-09-16] MEDS: diphenhydrAMINE 25 mg Capsule PO ×2 (02:16→12:19)
[2024-09-16] MEDS: acetaminophen 325 mg Tablet 650 MG PO ×3 (04:32→17:09)
[2024-09-16] MEDS: ipratropium-albuterol 3 mL Neb INHALATION ×3 (08:55→21:02)
[2024-09-16] MEDS: tamsulosin 0.4 mg Capsule PO (10:21)
[2024-09-16] MEDS: apixaban 5 mg Tablet PO ×2 (10:21→17:10)
[2024-09-16] MEDS: bumetanide 1 mg Tablet PO ×2 (10:21→17:10)
[2024-09-16] MEDS: amiodarone 200 mg Tablet 400 MG PO (10:21)
[2024-09-16] MEDS: metoprolol tartrate 50 mg Tablet 25 MG PO ×2 (10:22→17:10)
[2024-09-16] MEDS: lidocaine 5% Patch 1 PATCH TOPICAL (10:22)
[2024-09-16] MEDS: potassium chloride ER 20 mEq Tablet PO (10:22)
[2024-09-16] MEDS: HYDROcodone-acetaminophen 5-325 mg Tablet 1 TAB PO ×2 (13:40→20:31)
--- NOTE | 2024-09-16 18:24 | PC.NURSE ---
Patient ambulated to the bathroom with minimal assist and a walker. Patient showered, using a shower chair. Patient did require some assistance washing hair, back, and lower extremities. Patient stated he felt slightly weaker at the end of the shower and requested a wheelchair to go back to bed. Dinner was served and patient wanted to sit in the wheelchair to eat. While in the shower, patient stated, I don't think I want to go to the longterm after all because they will try to keep me. Patient would benefit from in-home services to help with showers and meals and a shower chair.
--- NOTE | 2024-09-16 19:08 | P.PN_ITS ---
Subjective Subjective: He is having some difficulty clearing secretions/coughing due to rib fractures. Encouraged him to use the flutter valve. Vitals/I&O/Wt Last Vital Signs Temp 98.6 F 09/16/24 15:55 Pulse 90 09/16/24 15:55 Resp 18 09/16/24 15:55 BP 120/72 09/16/24 15:55 Pulse Ox 91 09/16/24 15:55 O2 Del Method Nasal Cannula 09/16/24 15:55 O2 Flow Rate 4 09/16/24 14:06 09/16/24 09/16/24 09/16/24 06:59 14:59 22:59 Intake Total 1920 / 1920 1000 / 2920 Output Total 825 / 825 300 / 1125 Balance 1095 / 1095 700 / 1795 Weight last 48 hrs Weight 92.079 kg Weight 93.395 kg Weight 93.259 kg Physical Exam Const: COMMON NORMALS: patient oriented x3 and alert GENERAL APPEARANCE: cooperative ORIENTATION/CONSCIOUSNESS: Yes awake HENMT: COMMON NORMALS: oropharynx normal Neck/C-Spine: COMMON NORMALS: no JVD Resp: COMMON NORMALS: normal respiratory effort AUSCULTATION: rhonchi Cardio: COMMON NORMALS: no JVD, regular rhythm, S1 normal heart sound present, S2 normal heart sound present and No murmurs present (Cardio) RHYTHM: regular rhythm HEART SOUNDS: S1 normal heart sound present and S2 normal heart sound present GI: COMMON NORMALS: Normal to inspection, nondistended, normoactive bowel sounds present, Soft to palpation and non-tender PALPATION: Yes Soft to palpation Extremity: COMMON NORMALS: no joint enlargement GENERAL: Yes edema (Trace ankle) Neuro: COMMON NORMALS: patient oriented x3 and moves all extremities SE NSORIUM/ORIENTATION: Yes alert Psych: MOOD & AFFECT: Yes irritable and Yes hostile affect Skin: OTHER: Resolving minimal diffuse erythema of upper and lower extremities with improvement. Wrinkling, some dry scales over bilateral lower extremities. Urinary Catheter Management: Knight: Cath Placed During This Visit: yes Reason for Continuing Indwelling Catheter: Accurate Measurement of Urinary Output in Critically Ill Patients Urinary Catheter Date of Insertion: 09/10/24 A&P Assessment and plan (1) Physical deconditioning: Resume PT when available tomorrow and arrangements for SNF. Awaiting reassessment by physical therapy, although has been seen getting up in the room. Pending return of case management on Tuesday. Ambulate as tolerating. Maintain fall precautions. Continue preventive and therapeutic measures for his other conditions as he may allow. He has been requesting for double portions of food, discussed to a lower possible for now with temporarily increased caloric intake to aid in recovery. On his request requesting to avoid vitals/interruptions at night time. Requested that he avoid raising his voice and refrain from profane language. (2) Rib pain: He is building up secretions. Noted rhonchi on exam. Encouraged him to use flutter valve. He is agreeable. He is using the cough pillow. With deconditioning after hospitalization, had declined SNF rehabilitation, but upon return home realized he could not manage, return to ER. On discussion agreeable to arrangements for rehabilitation, initiated by case management today, to be resumed on Tuesday. PT if available, although discussed with him and his son usually not available in the weekend hospital. Continue incentive spirometer, flutter valve. Mobilize as tolerating twice daily. Fall precautions. For rib pain continue acetaminophen, lidocaine patch, provide cough pillow. Hydrocodone as needed. Continue bowel regimen with risk of constipation. Add MiraLAX. Monitor oxygenation. (3) Atrial fibrillation with rapid ventricular response: Reviewed vitals, heart rate, blood pressure. Continue metoprolol, amiodarone. Requested follow-up BMP and magnesium but he had refused. Reviewed heart rate. Stop Cardizem drip. Continue metoprolol and amiodarone. Hold home apixaban due to intraparenchymal hematoma and hemoptysis Continue telemetry monitoring Monitor electrolytes (4) Congestive heart failure: Currently volume compensated. Wrinkling, some dry scales on his lower extremities. Additionally reports itching. Again requesting for Benadryl. Mental status and blood pressure have been better. He is not on IV pain medicine. Requested for moisturizer for skin. One-time dose of Benadryl. Continue Bumex, fluid restriction - as per discussion best effort to maintain fluid intake below 2 L. Continue oxygen support. Monitor weights. Repeat chemistry, magnesium. Qualifiers: Heart failure chronicity: chronic Heart failure type: unspecified Qualified Code(s): I50.9 - Heart failure, unspecified (5) Cellulitis: Resolving now faint erythema after improvement of severe upper and lower extremity edema. (6) Chronic hypoxic respiratory failure: Chronic hypoxic respiratory failure on 6 L baseline Patient is currently requiring his baseline oxygen Encourage pulmonary toilet Plan DVT prophylaxis: Apixaban on hold due to reported hemoptysis. SCDs Attestations Medical Necessity Statement*: Continue hospitalization for arrangements of rehabilitation due to physical deconditioning after severe rib pain after injury, CHF, intraparenchymal hematoma. Diagnoses Physical deconditioning R53.81 Rib pain R07.81 Atrial fibrillation with rapid ventricular response I48.91 Congestive heart failure I50.9 Heart failure chronicity: chronic Heart failure type: unspecified Cellulitis L03.90 Chronic hypoxic respiratory failure J96.11
[2024-09-17] VITALS (9 sets, daily range): BP systolic 93–119; BP diastolic 64–82; PULSE 85–98; RESP 16–19; TEMP 36.4–37.2; O2SAT 91–100
[2024-09-17] MEDS: ipratropium-albuterol 3 mL Neb INHALATION ×3 (07:25→21:20)
[2024-09-17] MEDS: tamsulosin 0.4 mg Capsule PO (08:59)
[2024-09-17] MEDS: bumetanide 1 mg Tablet PO ×2 (08:59→17:55)
[2024-09-17] MEDS: apixaban 5 mg Tablet PO ×2 (08:59→17:54)
[2024-09-17] MEDS: potassium chloride ER 20 mEq Tablet PO (08:59)
[2024-09-17] MEDS: lidocaine 5% Patch 1 PATCH TOPICAL (08:59)
[2024-09-17] MEDS: amiodarone 200 mg Tablet 400 MG PO (08:59)
[2024-09-17] MEDS: metoprolol tartrate 50 mg Tablet 25 MG PO ×2 (09:00→17:55)
[2024-09-17] MEDS: HYDROcodone-acetaminophen 5-325 mg Tablet 1 TAB PO ×2 (09:00→17:55)
[2024-09-17] MEDS: hyDROXYzine 25 mg Capsule PO (11:32)
[2024-09-17] MEDS: acetaminophen 325 mg Tablet 650 MG PO ×2 (11:32→17:55)
--- NOTE | 2024-09-17 14:15 | XRR_ITS ---
PROCEDURE INFORMATION: Exam: XR Chest Exam date and time: 09/17/2024 2:27 PM Age: 63 years old Clinical indication: Shortness of breath; Additional info: SOB TECHNIQUE: Imaging protocol: Radiologic exam of the chest. Views: 1 view. COMPARISON: CT chest [facility] [id number] 09/10/2024 7:33 PM FINDINGS: Lungs: Unremarkable. No consolidation. Pleural spaces: Unremarkable. No pleural effusion. No pneumothorax. Heart/Mediastinum: Cardiomegaly is identified. Bones/joints: There has been ORIF of left rib fractures. XR/XR chest 1V portable [id number] IMPRESSION: There are no acute concerning abnormalities.
--- NOTE | 2024-09-17 14:16 | P.PN_ITS ---
Subjective Subjective: - Patient was seen this morning he is al ert oriented x 3, following all commands -He becomes very agitated when I entered the room, -We discussed his persistent rib pain, d iscussed trying to manage his pain accordingly, however there is concern for opiate overdose and opiate addiction, but will do my best to get his pain under control but he is going to have some degree of baseline pain -But he is increased risk of pneumonia, respiratory complications, needs to use incentive spirometer, flutter valve, continue to be ambulatory - he swears at me, yells expletives at m e, throughout our conversation, nursing staff are at bedside during my conversation, ? Have come to a compromise I am going to increase his dose of hydrocodone to every 6 hours as needed ? And will add on hydroxyzine 25 twice daily for anxiety and pruritus, ? I had a detailed discussion with him that I will not tolerate abuse towards me or any of the nursing staff, he should remain respectful, he will not throw things, he will not use swear words, will not yell or raise his voice, and will follow our instructions, he voiced understanding, all questions answered Vitals/I&O/Wt Last Vital Signs Temp 97.6 F 09/17/24 12:07 Pulse 97 09/17/24 12:07 Resp 17 09/17/24 12:07 BP 101/71 09/17/24 12:07 Pulse Ox 93 09/17/24 12:07 O2 Del Method Nasal Cannula 09/17/24 12:07 O2 Flow Rate 4 09/17/24 07:25 09/16/24 09/17/24 09/17/24 22:59 06:59 14:59 Intake Total 1000 / 2920 120 / 3040 1960 / 1960 Output Total 300 / 1125 500 / 500 Balance 700 / 1795 120 / 1915 1460 / 1460 Weight last 48 hrs Weight 92.397 kg Weight 92.079 kg Physical Exam Const: COMMON NORMALS: no acute distress and patient oriented x3 Resp: COMMON NORMALS: normal respiratory effort, No retractions and No use of accessory muscles AUSCULTATION: crackles and wheezes Cardio: COMMON NORMALS: regular rate, regular rhythm, S1 normal heart sound present and S2 normal heart sound present RATE: regular rate RHYTHM: regular rhythm HEART SOUNDS: S1 normal heart sound present and S2 normal heart sound present GI: COMMON NORMALS: Normal to inspection, nondistended, normoactive bowel sounds present and non-tender Extremity: COMMON NORMALS: no pedal edema Neuro: COMMON NORMALS: patient oriented x3 Psych: COMMON NORMALS: mental status grossly normal Urinary Catheter Management: Knight: Cath Placed During This Visit: yes Reason for Continuing Indwelling Catheter: Accurate Measurement of Urinary Output in Critically Ill Patients Urinary Catheter Date of Insertion: 09/10/24 A&P Assessment and plan (1) Physical deconditioning: (2) Rib pain: (3) Atrial fibrillation with rapid ventricular response: (4) Congestive heart failure: Qualifiers: Heart failure chronicity: chronic Heart failure type: unspecified Qualified Code(s): I50.9 - Heart failure, unspecified (5) Cellulitis: (6) Chronic hypoxic respiratory failure: Plan Physical deconditioning -Recommended PT OT, sitting up in a chair, incentive spirometer, flutter valve Rib pain, acute right-sided rib fractures, CT/CT chest wo con [id number] IMPRESSION: 1. Acute right-sided rib fractures with small right pleural effusion 2. Cavitary lesion in the right lower lobe containing hyperdense fluid. This is felt to represent contained parenchymal hematoma 3. Chronic emphysematous changes again noted Plan -Pulmonary toilet -Crackles on lung bonilla, repeat chest x-ray, CRP, Pro-Shahzad, CBC -Start Augmentin -Hydrocodone 01/26/2025 every 6 hours as needed Chronic hypoxic respiratory failure -Pulmonary toilet CHF, continue Bumex Full code Eliquis for DVT prophylaxis Attestations Medical Necessity Statement*: Patient requires hospitalization for physical deconditioning, rib pain Diagnoses Physical deconditioning R53.81 Rib pain R07.81 Atrial fibrillation with rapid ventricular response I48.91 Congestive heart failure I50.9 Heart failure chronicity: chronic Heart failure type: unspecified Cellulitis L03.90 Chronic hypoxic respiratory failure J96.11
[2024-09-17] MEDS: amoxicillin-clav 875-125 mg Tablet 1 TAB PO (17:55)
--- NOTE | 2024-09-17 20:30 | PC.NURSE ---
FENTANYL COMMENT shortly after shift change the patient had his call light on. this nurse and the aide Cady went to the room to see what the patient needed. when entering the room it was seen that the patient had spilled his tea from dinner on his bedside table and onto his bed. the patient was complaining about how bad he hurt and stated, if those excuse for doctors would actually take care of me and my pain this wouldn't happen. they are a fucking joke and don't know shit! . the patient continued to complain about various aspects of his stay that were not up to his liking while this nurse and the aide were cleaning up the patient and changing his gown and linens. this nurse explained to him that the current order he had on his MAR was the pain medication that had been prescribed to him upon discharge several days ago and that in addition to that the patient had scheduled tylenol that was available which he had chosen to take sparingly. the patient exclaimed in a loud voice well that shit doesn't work! why won't he give me what does, like that morphine that I know works. this nurse explained that the patient did not have IV access as he had refused placement of one in ER on admission. the patient stated he would allow it now, to which this nurse explained that it had already been decided that IV pain medication would not be ordered for him per the doctor. considering these were not fresh fractures such strong pain medication was not appropriate treatment. the patient then yelled out well I am in pain and you aren't doing anything about it, I can't move! how am I supposed to take care of myself. my pain going like this is why when I'm not in here I have to get myself fentanyl , this nurse asked the patient if he had a prescription for it, as it was not on his home med list and if it hadn't been updated accurately we could see if it could be restarted. the patient hollered at this resume writer no I don't have a fucking prescription! I have to get it on the street! this nurse repeated on the street? and the patient exhaled loudly and stated yeah on the black market because no one cares that I'm in pain . this nurse stated to the patient that purchasing narcotics in that manner is very unsafe and could be fatal for him as well as illegal. the patient did not care as he was in pain. this nurse explained that his pain was not ignored, that he had scheduled and prn medication that was being offered, a lidocaine patch, robert wrap, and ice. all of these interventions were appropriate and staff was addressing his complaint, even if it was not to his expectations.
[2024-09-18] MEDS: HYDROcodone-acetaminophen 5-325 mg Tablet 1 TAB PO ×2 (00:17→06:20)
[2024-09-18] MEDS: hyDROXYzine 25 mg Capsule PO (00:18)
[2024-09-18 03:09] VITALS: PULSE 96; RESP 17; O2SAT 93
[2024-09-18] MEDS: ipratropium-albuterol 3 mL Neb INHALATION ×2 (03:09→07:45)
[2024-09-18 03:15] VITALS: PULSE 90
[2024-09-18 04:00] VITALS: BP 110/68; PULSE 98; RESP 18; TEMP 37; O2SAT 93
[2024-09-18 07:28] VITALS: BP 88/44; PULSE 105; RESP 18; TEMP 37; O2SAT 86
[2024-09-18 07:47] VITALS: PULSE 103; RESP 18; O2SAT 93
[2024-09-18 07:50] VITALS: BP 102/50
--- NOTE | 2024-09-18 08:58 | PM.DCS ---
Discharge Providers Date of Admission: 09/14/24 15:35 Date of Discharge: September 18, 2024 Attending Provider at Admission: Donn Rae Attending Provider at Discharge: Constantine Zapata MD Primary Care Provider: Sloan Arias MD Diagnoses at Discharge Discharge Diagnosis (1) Physical deconditioning: Status: Acute (2) Rib pain: Status: Acute (3) Atrial fibrillation with rapid ventricular response: Status: Acute (4) Congestive heart failure: Status: Acute Qualifiers: Heart failure chronicity: chronic Heart failure type: unspecified Qualified Code(s): I50.9 - Heart failure, unspecified (5) Cellulitis: Status: Acute (6) Chronic hypoxic respiratory failure: Status: Acute Reason for Visit Reason for Visit: weakness Hospital Course Hospital Course This is a 63-year-old male with a past medical history of COPD, CHF, atrial fibrillation, Tobacco tobacco use disorder, chronic respiratory failure on 6 L history of medical noncompliance who presents [facility] due to right-sided chest wall pain, as 5 days ago he fell out of a truck onto his chest. Patient was admitted 09/10/2024 for right-sided chest wall pain, CT/CT chest wo con [id number] IMPRESSION: 1. Acute right-sided rib fractures with small right pleural effusion 2. Cavitary lesion in the right lower lobe containing hyperdense fluid. This is felt to represent contained parenchymal hematoma 3. Chronic emphysematous changes again noted -Patient received inpatient pain control -Inpatient pain control was difficult as patient requested us to completely knock away his pain -We discussed conservative interventions of Tylenol, ibuprofen, lidocaine patch, heating, cool pack -He had issues with altered mental status, hypotension, lethargy with escalation of his doses of narcotics, also wanted Benadryl regularly which further altered his mentation, made him drowsy, caused hypotension -Discussed with him the morbidity mortality associated with narcotics, Benadryl, -Had multiple detailed discussions with him about the balance between controlling his pain and the risk of opiate/narcotic overdose, the risk of pneumonia, the worsening respiratory status, given his chronic respiratory failure, his episodes of hypotension, altered mental status, lethargy -I was able to control his pain on hydrocodone 5-325 every 6 hours as needed, throughout the afternoon of 09/17/2024 according to nursing staff he was more comfortable, the morning of 09/18/2024 he was quite comfortable upon my observations, resting comfortably, however after further discussion with him on 09/18/2024 patient quickly becomes agitated, tells me that he wants me to completely knock away his pain -Discussed the morbidity and mortality of opiate overdose, opiate addiction, risk of worsening respiratory failure, but understanding that he does have rib fractures, and I empathized his pain, but he looks quite comfortable this morning and I believe his pain is well-controlled, we have found a good balance for his medications, will discharge him home, recommended using incentive spirometer, flutter valve at home, continue conservative interventions, patient continued to yell expletives at me and would not allow me to explain any further, tell me to get out of his room 09/18/2024 Patient was admitted to [facility] for CHF exacerbation, requiring Lasix drip, overall clinically improved transitioned to p.o. diuretics, patient did not follow fluid restriction guidelines during her hospitalization, became agitated would yell expletives at nursing staff, physicians about his fluid restrictions, for example on 09/17/2024 his intake was restricted to 2 L that he had consumed 4.76 L, would not follow my instructions about fluid restrictions, discussed morbidity and mortality, patient would not listen, continue to yell expletives at me, he did not take his medications the morning of 09/18/2024, Yelling explicit at me, telling me to get out of his room, I did tell him to take his medications Patient was admitted to [facility] for cellulitis, managed on antibiotics, completed antibiotic therapy as inpatient A-fib with RVR, required Cardizem drip, transition to p.o. amiodarone, metoprolol, initially Eliquis was held, due to concern for intraparenchymal hematoma and hemoptysis as hemoptysis resolved, Eliquis resumed, no recurrent episodes of hemoptysis during his hospitalization. Patient refused his medications 09/18/2024, recommended for him to use his medications here, and on discharge. Patient would not listen to be kept yelling expletives at me On 09/14/2024 patient was discharged but returned back to the ER as he reported weakness On 09/16/2024 -After reviewing notes from nursing staff, patient ambulated to the bathroom with minimal assistance with a walker, showered, did require some assistance, reported to nursing staff that he did not want to go to a residential after all because they will try to keep him, On 09/17/2024 -Patient refused blood draws, discussed morbidity and mortality, he voiced understanding, all questions answered, tells me he does not care ? Patient did allow us to do a chest x-ray, chest x-ray had no focal findings -As I recommended further imaging to follow his intraparenchymal hematoma, to evaluate his complaints of further pain, however he declines, understands morbidity mortality -Earlier on in his admission, he was offered [facility] facility placement for rehab, initially he declined, then return to the emergency room stating that he could not take care of himself, too weak, wanted to go to a residential -Again I had a detailed discussion with him on 09/17/2024 about going to a [facility] facility for rehab, however patient adamantly declines, tells me he wants to go home, he wants me to completely knock away his pain, ? Discussed concerns for opiate overdose with the amount of narcotics he was receiving, concerns for prior hospitalist, especially as he was using narcotics and Benadryl together ? Discussed that I understand and empathize that he has significant rib fractures, intraparenchymal hematoma with pain, I am doing my best to try to titrate his narcotics, I am going to increase his hydrocodone 5-325 to every 6 hours as needed for pain. However he is going to have some degree of pain as he is going to need to ambulate, use of incentive spirometer, flutter valve, aggressive pulmonary toilet as I want to decrease his risk of future complications of pneumonia, respiratory failure, I had a detailed discussion with him about trying to control his pain versus risk of narcotic overdose and opiate addiction. He has been here over a week, and we are doing her best to try to titrate his pain medications, meanwhile having him remain ambulatory, meanwhile trying her best to ensure that he has a good level of functioning -Throughout my conversations with him, patient would become very agitated, suzette bradford expletives, he also threatened that if I am not can to treat his pain he is getting it medications from outside the hospital # However patient became quite agitated, multiple times he swore at me, swore at nursing staff -Throughout the afternoon of 08/28/2024 spoke to nursing staff patient's pain is more under control, resting more comfortably The morning of 08/29/2024 -Patient was examined, normotensive, respiratory rate 18, temperature 98.6, on 4 L -Patient refused his blood draws this morning -Patient refused taking his medications this morning -He was seen resting comfortably in bed, -I discussed with him going to residential he becomes very agitated, starts yelling, tells me that he is not going to go, he wants me to control his pain # I discussed with him like I discussed yesterday the balance between controlling his pain and the risk of narcotic overdose and addiction, he was resting quite comfortably when I arrived early this morning, so we are progressing in the right direction, if he does not want to go to a [facility] facility, his pain is now under control, will discharge him home -Patient becomes very agitated, he swears at me, threatens me, and tells me that get out of his room -I apologized to him, understand the difficulty of his pain, but his pain is now under control, and as he does not want to go to a [facility] facility for rehab he is ready to discharge home, discussed using pain medication as prescribed, following up with primary care -Patient was not hearing any of what I was saying as he was yelling expletives at me In terms of disposition -I have had multiple discussions with him about getting rehab at a rehab facility however in my conversations with him he has declined Physical Exam Const: COMMON NORMALS: no acute distress and patient oriented x3 Resp: COMMON NORMALS: normal respiratory effort, No retractions, No use of accessory muscles and clear to auscultation bilaterally AUSCULTATION: clear to auscultation bilaterally Cardio: COMMON NORMALS: regular rate, regular rhythm, S1 normal heart sound present and S2 normal heart sound present RATE: regular rate RHYTHM: regular rhythm HEART SOUNDS: S1 normal heart sound present and S2 normal heart sound present GI: COMMON NORMALS: Normal to inspection, nondistended, normoactive bowel sounds present and non-tender Extremity: COMMON NORMALS: no pedal edema Neuro: COMMON NORMALS: patient oriented x3 Psych: COMMON NORMALS: mental status grossly normal Urinary Catheter Management: Knight: Cath Placed During This Visit: yes Reason for Continuing Indwelling Catheter: Accurate Measurement of Urinary Output in Critically Ill Patients Urinary Catheter Date of Insertion: 09/10/24 Discharge Data Studies Completed and Pending Completed Studies During Hospitalization Category Date Time Status XR chest 1V portable [id number] Routine Exams 09/17/24 14:15 Completed Pending at discharge Category Date Time Status C Reactive Protein AM LABS Lab 09/18/24 04:00 Ordered C Reactive Protein AM LABS Lab 09/19/24 04:00 Ordered C Reactive Protein AM LABS Lab 09/20/24 04:00 Ordered Complete Blood Count w/Auto AM LABS Lab 09/18/24 04:00 Ordered Complete Blood Count w/Auto AM LABS Lab 09/19/24 04:00 Ordered Complete Blood Count w/Auto AM LABS Lab 09/20/24 04:00 Ordered Comprehensive Metabolic Panel AM LABS Lab 09/18/24 04:00 Ordered Comprehensive Metabolic Panel AM LABS Lab 09/19/24 04:00 Ordered Comprehensive Metabolic Panel AM LABS Lab 09/20/24 04:00 Ordered Procalcitonin AM LABS Lab 09/18/24 04:00 Ordered Procalcitonin AM LABS Lab 09/19/24 04:00 Ordered Procalcitonin AM LABS Lab 09/20/24 04:00 Ordered Radiology Impressions Chest X-Ray 09/17/24 14:15 IMPRESSION: There are no acute concerning abnormalities. Vitals Last Vital Signs Temp 98.6 F 09/18/24 07:28 Pulse 103 H 09/18/24 07:47 Resp 18 09/18/24 07:47 BP 102/50 09/18/24 07:50 Pulse Ox 93 09/18/24 07:47 O2 Del Method Nasal Cannula 09/18/24 07:47 O2 Flow Rate 4 09/18/24 07:47 Discharge Plan Discharge Patient Disposition: Home Condition: Stable Prescriptions: New amoxicillin-pot clavulanate 875-125 mg Tablet 1 tab PO BID 5 Days Qty: 10 0RF Continued (DME) motorized electric scooter See Rx Instructions .Route .MEDSUPPLY Qty: 1 0RF Rx Instructions: As directed (DME) pulse oxymeter See Rx Instructions .Route .MEDSUPPLY Qty: 1 0RF Rx Instructions: As directed Eliquis 5 mg tablet 5 mg PO BID Qty: 180 1RF Hold Instructions: Resume on 10/15/24. potassium chloride 10 mEq tablet extended release 20 meq PO DAILY Qty: 180 1RF mirabegron 25 mg tablet extended release 24 hr 25 mg PO DAILY Qty: 90 1RF albuterol sulfate 2.5 mg /3 mL (0.083 %) solution for nebulization 2.5 mg inhalation Q6H PRN (Reason: shortness of breath or wheezing) Qty: 180 5RF Rx Instructions: to use while [employer] is unavailable ondansetron 4 mg tablet,disintegrating 4 mg PO Q8H PRN (Reason: nausea and vomiting) Qty: 60 1RF loperamide 2 mg capsule 2 mg PO Q6H PRN (Reason: loose stool) Qty: 30 0RF (DME) home fill oxygen concentrator See Rx Instructions .Route .MEDSUPPLY Qty: 1 0RF Rx Instructions: As directed, 6L NC (DME) Electric wheelchair See Rx Instructions .Route .MEDSUPPLY Qty: 1 0RF Rx Instructions: As directed ipratropium-albuterol 0.5 mg-3 mg(2.5 mg base)/3 mL solution for nebulization 3 ml inhalation Q6H PRN (Reason: shortness of breath or wheezing) 30 Days Qty: 180 3RF amiodarone [Pacerone] 200 mg Tablet 400 mg PO DAILY Qty: 90 0RF hydrocodone-acetaminophen 5-325 mg tablet 1 tab PO Q8H PRN (Reason: pain) Qty: 15 0RF sennosides [senna] 8.6 mg Tablet 17.2 mg PO BEDTIME Qty: 30 3RF lidocaine 5 % Adhesive Patch,Medicated 1 patch topical [id number] Qty: 30 0RF acetaminophen 325 mg Tablet 650 mg PO Q6H Qty: 30 3RF tamsulosin 0.4 mg capsule 0.4 mg PO DAILY bumetanide 1 mg tablet 1 mg PO BID albuterol sulfate 90 mcg/actuation HFA aerosol inhaler 2 puff INHALATION Q6H PRN (Reason: Shortness Of Breath) bupropion HCl 150 mg tablet extended release 24 hr 150 mg PO QAM Anoro Ellipta 62.5-25 mcg/actuation blister with device 1 inh inhalation DAILY metoprolol tartrate 50 mg tablet 25 mg PO BID Discharge Orders: Discharge Order (Routine); Ordered 09/18/24 Ordered By: Constantine Zapata Referrals: Sloan Arias MD [Primary Care Provider] - 10/18/24 9:30 am Discharge Diet: Cardiac Discharge Activity: Resume usual activity Patient Instructions: Amoxicillin/Clavulanate Potassium (By mouth), Heart Failure (GEN), CHF Stoplight, Opioid Safety Activity Restrictions/Additional Instructions: -please hydrate well -please use narcotic as prescribed -please do not drive or operate heavy machinery or drink while taking medicaion Discharge Attestations Time Spent in Discharge Care*: greater than 30 min Status at Discharge: Cognitive status at discharge: mildly impaired cognition, Behavioral status at discharge: can be uncooperative, Quality Metrics Clinical Quality Measures [ No reported AMI, CVA or VTE this stay] Coding Level of Care Code 03627 Total time (in minutes) for Discharge: 45 Diagnoses Physical deconditioning R53.81 Rib pain R07.81 Atrial fibrillation with rapid ventricular response I48.91 Congestive heart failure I50.9 Heart failure chronicity: chronic Heart failure type: unspecified Cellulitis L03.90 Chronic hypoxic respiratory failure J96.11
--- NOTE | 2024-09-18 09:40 | PC.NURSE ---
this nurse went in to pts room to attempt give pt meds, he refused meds, notified dr. norton in person.
--- NOTE | 2024-09-18 09:41 | PC.NURSE ---
pt has d/c orders, went to pts room to ask pt which pharmacy and abt transportation. pt then proceeded to ignore me intially, he then started to scream and call me names. pt also had something in his hand and acted as if he were going to throw it.
== END 2024-09-18 10:00 | disposition home or self-care (01) ==
LOC: ER 14:24 → MEDSURG 15:35
PROVIDERS: Admitting Provider Internal Medicine; Emergency Provider Emergency Medicine; PCP Family Medicine; Visit Provider Family Medicine
DX: R53.81 Other malaise (principal); R07.81 Pleurodynia; I48.91 Unspecified atrial fibrillation; I50.20 Unspecified systolic (congestive) heart failure; L03.90 Cellulitis, unspecified; J96.11 Chronic respiratory failure with hypoxia; J44.9 Chronic obstructive pulmonary disease, unspecified; Z99.81 Dependence on supplemental oxygen; Z91.199 Patient's noncompliance with other medical treatment and regimen due to unspecified reason; Z91.81 History of falling; F17.210 Nicotine dependence, cigarettes, uncomplicated
CPT/HCPCS: 71045; 94640; 97161; 97530; 99285; G0378; Q0162

== ENCOUNTER 2024-10-16 13:27 | Inpatient (IN) | payer MEDICARE, MEDICAID, SELFPAY ==
[2024-10-16] VITALS (36 sets, daily range): BP systolic 114–145; BP diastolic 73–91; PULSE 80–127; RESP 16–36; TEMP 36.5–36.8; O2SAT 86–96; BMI 28.5
--- NOTE | 2024-10-16 13:34 | ECG_ITS ---
[facility] Test Date: 2024-10-16 Pat Name: Gareth Pickering Department: Room: Gender: Male Dipper Operator: : [id number] Requested By: Felipe Bah Order Number: [id number] Natalya MD: Mario Hanson M.D. Measurements Intervals [place] Rate: 140 P: 0 [place]: 0 QRS: 119 QRSD: 114 T: 26 QT: 285 QTc: 436 Interpretive Statements ATRIAL FIBRILLATION WITH RAPID VENTRICULAR RESPONSE RIGHT BUNDLE BRANCH BLOCK [120+ ms QRS DURATION, UPRIGHT V1, 40+ ms S IN I/aVL/V4/V5/V6] LEFT POSTERIOR FASCICULAR BLOCK [QRS AXIS > 109, INFERIOR Q] SEPTAL MYOCARDIAL INFARCTION , PROBABLY OLD [40+ ms Q WAVE IN V1/V2] Compared to ECG 09/14/2024 13:04:48 Right bundle-branch block now present Left posterior fascicular block now present Myocardial infarct finding now present Incomplete right bundle-branch block no longer present ST (T wave) deviation no longer present Electronically Signed On 10-20-2024 23:18:48 SOFTWARE QUALITY ENGINEER by Mario Hanson M.D. [email or web address]
--- NOTE | 2024-10-16 13:41 | XRR_ITS ---
PROCEDURE INFORMATION: Exam: XR Chest Exam date and time: 10/16/2024 1:44 PM Age: 64 years old Clinical indication: Shortness of breath; Prior surgery; Surgery date: 6+ months; Surgery type: Costal fixation lt ribs; Additional info: SOB TECHNIQUE: Imaging protocol: Radiologic exam of the chest. Views: 1 view. COMPARISON: CR XR chest 1V portable [id number] 09/17/2024 2:27 PM FINDINGS: Lungs: Mild coarsening pulmonary interstitium. No acute pulmonary pathology. Pleural spaces: No pleural effusion. Heart/Mediastinum: Increased cardiac silhouette again seen. Bones/joints: Left rib fixation plates again noted. Mildly elevated right hemidiaphragm. XR/XR chest 1V portable [id number] IMPRESSION: No acute pathology or significant interval change.
--- NOTE | 2024-10-16 13:45 | W.ED.SOB ---
HPI - SOB/Dyspnea General: Chief Complaint: Shortness of Breath/Dyspnea Stated Complaint: SOB Time Seen by Provider: 10/16/24 13:38 Source: patient Mode of arrival: ambulatory Limitations: no limitations History of Present Illness: HPI Narrative: 64-year-old male has a history of COPD along with congestive heart failure along with noncompliance with meds. He states that he has been having increasing shortness of breath swelling over the last week. He also has a history of A-fib is in A-fib with RVR here. He states he has not taken his meds in over a month. He has had a slight cough denies any fever Associated symptoms: Reports palpitations; Deny abdominal pain, chest pain, fever(s), nausea or vomiting Related Data Home Medications Medication Instructions Recorded Confirmed albuterol sulfate 90 mcg/actuation 2 puff inhalation Q6H PRN 06/04/24 10/16/24 aerosol inhaler Shortness Of Breath bumetanide 1 mg tablet 1 mg PO BID 06/04/24 10/16/24 bupropion HCl 150 mg 24 hr tablet, 150 mg PO QAM 06/04/24 10/16/24 extended release tamsulosin 0.4 mg capsule 0.4 mg PO DAILY 06/04/24 10/16/24 metoprolol tartrate 50 mg tablet 25 mg PO BID 07/16/24 10/16/24 umeclidinium 62.5 mcg-vilanterol 1 inh inhalation DAILY 07/16/24 10/16/24 25 mcg/actuation powdr for inhalation (Anoro Ellipta) mirabegron 25 mg tablet,extended 25 mg PO DAILY 10/16/24 10/16/24 release 24 hr (Myrbetriq) Previous Rx's Medication Instructions Recorded home fill oxygen concentrator #1 ea 04/19/23 motorized electric scooter #1 ea 04/26/23 pulse oxymeter #1 ea 04/26/23 Electric wheelchair #1 ea 05/04/23 albuterol sulfate 2.5 mg/3 mL 2.5 mg (3 mL) inhalation Q6H PRN 04/27/24 (0.083 %) solution for nebulization shortness of breath or wheezing #180 mL apixaban 5 mg tablet (Eliquis) 5 mg PO BID #180 tabs 04/27/24 loperamide 2 mg capsule 2 mg PO Q6H PRN loose stool #30 04/27/24 caps ondansetron 4 mg disintegrating 4 mg PO Q8H PRN nausea and 04/27/24 tablet vomiting #60 tabs potassium chloride 10 mEq 20 meq (2 x 10 mEq) PO DAILY #180 04/27/24 tablet,extended release tabs acetaminophen 325 mg tablet 650 mg (2 x 325 mg) PO Q6H #30 tabs 09/14/24 amiodarone 200 mg tablet (Pacerone) 400 mg (2 x 200 mg) PO DAILY #90 09/14/24 tabs lidocaine 5 % topical patch 1 patch topical [id number] #30 ea 09/14/24 sennosides 8.6 mg tablet (senna) 17.2 mg (2 x 8.6 mg) PO BEDTIME 09/14/24 #30 tabs Allergies Allergy/AdvReac Type Severity Reaction Status Date / Time No Known Allergies Allergy Verified 09/14/24 13:13 Review of Systems Const: Denies: fever(s), chills, body aches or change in appetite ENMT: Denies: throat pain or dental pain Card: Reports: palpitations and irregular heart rhythm; Denies: chest pain Resp: Reports: dyspnea and productive cough GI: Denies: abdominal pain, nausea, vomiting or diarrhea Musc: Denies: neck pain or back pain Skin/Breast: Denies: rash Neuro: Denies: headache(s) PFSH ED PFSH: Medical History Staphylococcus epidermidis bacteremia Respiratory acidosis Tobacco abuse counseling Chronic neck pain Congestion of throat Diarrhea Open wound of scrotum Sepsis Coag negative Staphylococcus bacteremia Acute on chronic respiratory failure with hypoxia and hypercapnia Abrasion, right lower leg, initial encounter Penile rash Rash of groin Exertional chest pain Congestive heart failure Moderate tricuspid regurgitation Mitral valve prolapse Hyperkalemia Acute hyperkalemia Oxygen dependent Non-compliance Substance abuse Moderate tobacco use disorder Bladder incontinence Lower extremity edema End stage COPD Smoker Tobacco use disorder Heart failure with mildly reduced ejection fraction (HFmrEF) Right heart failure with reduced right ventricular function Rib deformity Acute and chronic respiratory failure with hypoxia Atrial fibrillation with RVR Acute exacerbation of chronic obstructive airways disease Hyperlipidemia Atrial fibrillation COPD (chronic obstructive pulmonary disease) Surgical History History of colon surgery Family History Other CAD (coronary artery disease) Hypertension Lung disease Denies family history of Diabetes Clotting disorder Dementia Hyperlipidemia Psychiatric illness Chronic kidney disease (CKD) Anesthesia complication Bleeding disorder Cancer Stroke Social History Smoking and tobacco/nicotine status: current every day tobacco/nicotine user cigarettes Packs smoked per day: 0.5 Alcohol intake: former Substance/Drug Use: never Lives independently: Yes Current occupational status: disabled Current gender identity: Male Special jeri needs: No Agree to transfusion: Yes Physical Exam Const: COMMON NORMALS: patient oriented x3 HENMT: COMMON NORMALS: normocephalic and atraumatic HEAD & SCALP: normocephalic and atraumatic Eye: COMMON NORMALS: Equal, round and reactive pupils present and EOMs intact bilaterally PUPIL: Yes Equal, round and reactive pupils present Neck/C-Spine: COMMON NORMALS: full ROM and supple Chest: COMMONS NORMALS: normal inspection of the chest Resp: COMMON NORMALS: No retractions and No use of accessory muscles EFFORT & INSPECTION: Yes tachypneic and Yes respiratory distress AUSCULTATION: wheezes Cardio: COMMON NORMALS: No murmurs present (Cardio) RATE: tachycardic RHYTHM: abnormal rhythm irregularly irregular GI: COMMON NORMALS: Normal to inspection, nondistended, normoactive bowel sounds present, Soft to palpation, non-tender and no masses PALPATION: Yes Soft to palpation Extremity: COMMON NORMALS: normal to inspection and full ROM Neuro: COMMON NORMALS: patient oriented x3, moves all extremities and no focal motor deficits Psych: COMMON NORMALS: mental status grossly normal, Normal thought process present and cooperative THOUGHT PROCESS: Normal thought process present Skin: COMMON NORMALS: no rashes or lesions noted and no wounds GENERAL SKIN EXAM: no rashes or lesions noted Course Vital Signs: Vital signs: Vital Signs Temperature 97.7 F 10/16/24 13:33 Pulse Rate 98 10/16/24 15:12 Respiratory Rate 28 H 10/16/24 15:12 Blood Pressure 120/83 10/16/24 15:12 Pulse Oximetry 92 10/16/24 15:12 Oxygen Delivery Me thod Nasal Cannula 10/16/24 15:12 Oxygen Flow Rate 6 10/16/24 15:12 MDM - SOB/Dyspnea Medical Decision Making Patient presents here with shortness of breath he is also in A-fib with RVR he is at his baseline 6 L here has had no hypoxia x-ray shows no signs of pneumonia did have to start him on a Cardizem drip due to his A-fib with RVR. I spoke to hospitalist will admit at this time Medical Records I reviewed the patient's medical records. Lab Data I reviewed the patient's lab results. 10/16/24 14:12 10/16/24 14:12 Labs/Radiology: Radiology Impressions Chest X-Ray 10/16/24 13:41 IMPRESSION: No acute pathology or significant interval change. Laboratory Results WBC 11.93 10^3/uL (3.29-11.43) H 10/16/24 14:12 RBC 5.50 10^6/uL (3.85-5.65) 10/16/24 14:12 Hgb 15.00 g/dL (11.27-16.99) 10/16/24 14:12 Hct 49.5 % (37-53) 10/16/24 14:12 MCV 90.0 fl (82-101) 10/16/24 14:12 MCH 27.3 pg (27-33) 10/16/24 14:12 MCHC 30.3 g/dL (30-55) 10/16/24 14:12 RDW 16.4 % (12.1-15.1) H 10/16/24 14:12 Plt Count 250 10^3/cmm (157-399) 10/16/24 14:12 MPV 9.5 fL (7.4-10.4) 10/16/24 14:12 Neut % (Auto) 78.8 % 10/16/24 14:12 Lymph % (Auto) 12.0 % 10/16/24 14:12 [place] % (Auto) 8.5 % 10/16/24 14:12 Eos % (Auto) 0.1 % 10/16/24 14:12 Baso % (Auto) 0.3 % 10/16/24 14:12 Neut # (Auto) 9.41 10^3/uL (1.8-7.7) H 10/16/24 14:12 Lymph # (Auto) 1.4 10^3/uL (0.8-4.8) 10/16/24 14:12 [place] # (Auto) 1.0 10^3/uL (0.2-0.9) H 10/16/24 14:12 Eos # (Auto) 0.0 10^3/uL (0.0-0.8) 10/16/24 14:12 Baso # (Auto) 0.0 10^3/uL (0.0-0.1) 10/16/24 14:12 Nucleated RBC % (auto) 0 % 10/16/24 14:12 Nucleated RBCs # 0.0 /100WBC 10/16/24 14:12 PT 15.20 SECONDS (12.1-14.9) H 10/16/24 14:12 INR 1.12 (0.8-1.2) 10/16/24 14:12 Specimen Type Art 10/16/24 13:56 Sample Site Lr 10/16/24 13:56 ABG pH 7.36 (7.35-7.45) 10/16/24 13:56 ABG pCO2 61.0 mmHg (35-45) H* 10/16/24 13:56 ABG pO2 74.6 mmHg (80.0-100.0) L 10/16/24 13:56 ABG PO2/FiO2 Ratio 169 10/16/24 13:56 ABG HCO3 34.6 mmol/L (22-26) H 10/16/24 13:56 ABG Base Excess 7.0 mmol/L (-2.0-2.0) H 10/16/24 13:56 Jacob Test Pos 10/16/24 13:56 Hematocrit 44.1 % (42-52) 10/16/24 13:56 Hgb O2 Saturation 92.6 % (95-100) L 10/16/24 13:56 Carboxyhemoglobin 1.6 %THgb (0.4-20.1) 10/16/24 13:56 Methemoglobin 1.0 % (0.4-1.5) 10/16/24 13:56 Total Hemoglobin 14.4 g/dL (14-18) 10/16/24 13:56 O2 Delivery Device Nc 10/16/24 13:56 O2 Liters/Min 6.0 % 10/16/24 13:56 FiO2 44.0 % 10/16/24 13:56 Specimen Drawn By [place] 10/16/24 13:56 Sales Merchandiser ID [id number] 10/16/24 13:56 Sodium 136 mmol/L (136-145) 10/16/24 14:12 Potassium 4.4 mmol/L (3.5-5.1) 10/16/24 14:12 Chloride 94 mmol/L (98-107) L 10/16/24 14:12 Carbon Dioxide 34 mmol/L (22-29) H 10/16/24 14:12 Anion Gap 12.4 (5-19) 10/16/24 14:12 BUN 18 mg/dL (8-23) 10/16/24 14:12 Creatinine 0.7 mg/dL (0.7-1.2) 10/16/24 14:12 GFR Calculation 112.8 mL/min (90-130) 10/16/24 14:12 Glucose 109 mg/dL (65-115) 10/16/24 14:12 Calculated Osmolality 284 mOsm/kg (285-295) L 10/16/24 14:12 Calcium 10.4 mg/dL (8.5-10.5) 10/16/24 14:12 Total Bilirubin 0.6 mg/dL (0.15-1.2) 10/16/24 14:12 AST 22 U/L (0-40) 10/16/24 14:12 ALT 16 U/L (0-41) 10/16/24 14:12 Alkaline Phosphatase 162 U/L (40-130) H 10/16/24 14:12 NT-Pro-B Natriuret Pep 479 pg/mL (0-125) H 10/16/24 14:12 Total Protein 8.2 g/dL (6.6-8.7) 10/16/24 14:12 Albumin 3.8 g/dL (3.5-5.2) 10/16/24 14:12 Globulin 4.4 g/dL (1.3-4.6) 10/16/24 14:12 Coronavirus (PCR) Negative (Negative) 10/16/24 14:04 Influenza A (PCR) Negative (Negative) 10/16/24 14:04 Influenza Type B (PCR) Negative (Negative) 10/16/24 14:04 RSV (PCR) Negative (Negative) 10/16/24 14:04 All radiology interpretation(s) finalized by discharge EKG Data EKG 1: I personally reviewed and interpreted this EKG as follows: EKG Interpretation Date: 10/16/24 EKG interpretation time: 13:34 Interpretation: afib rvr hr [address] elevation qrs 114 qtc 366 Discharge Plan Discharge Patient Disposition: Admitted As Inpatient Clinical Impression: Atrial fibrillation with RVR, Dyspnea Condition: Stable Prescriptions: No Action (DME) motorized electric scooter See Rx Instructions .Route .MEDSUPPLY Qty: 1 0RF Rx Instructions: As directed (DME) pulse oxymeter See Rx Instructions .Route .MEDSUPPLY Qty: 1 0RF Rx Instructions: As directed Eliquis 5 mg tablet 5 mg PO BID Qty: 180 1RF Hold Instructions: Resume on 10/15/24. potassium chloride 10 mEq tablet extended release 20 meq PO DAILY Qty: 180 1RF albuterol sulfate 2.5 mg /3 mL (0.083 %) solution for nebulization 2.5 mg inhalation Q6H PRN (Reason: shortness of breath or wheezing) Qty: 180 5RF Rx Instructions: to use while DuoNeb is unavailable ondansetron 4 mg tablet,disintegrating 4 mg PO Q8H PRN (Reason: nausea and vomiting) Qty: 60 1RF loperamide 2 mg capsule 2 mg PO Q6H PRN (Reason: loose stool) Qty: 30 0RF (DME) home fill oxygen concentrator See Rx Instructions .Route .MEDSUPPLY Qty: 1 0RF Rx Instructions: As directed, 6L NC (DME) Electric wheelchair See Rx Instructions .Route .MEDSUPPLY Qty: 1 0RF Rx Instructions: As directed amiodarone [Pacerone] 200 mg Tablet 400 mg PO DAILY Qty: 90 0RF sennosides [senna] 8.6 mg Tablet 17.2 mg PO BEDTIME Qty: 30 3RF lidocaine 5 % Adhesive Patch,Medicated 1 patch topical [id number] Qty: 30 0RF acetaminophen 325 mg Tablet 650 mg PO Q6H Qty: 30 3RF tamsulosin 0.4 mg capsule 0.4 mg PO DAILY bumetanide 1 mg tablet 1 mg PO BID albuterol sulfate 90 mcg/actuation HFA aerosol inhaler 2 puff INHALATION Q6H PRN (Reason: Shortness Of Breath) bupropion HCl 150 mg tablet extended release 24 hr 150 mg PO QAM Anoro Ellipta 62.5-25 mcg/actuation blister with device 1 inh inhalation DAILY metoprolol tartrate 50 mg tablet 25 mg PO BID mirabegron [Myrbetriq] 25 mg tablet extended release 24 hr 25 mg PO DAILY Referrals: Sloan Arias MD [Primary Care Provider] - Coding Level of Care Code ED Dental Equipment Mechanic for Emily Talbot
--- NOTE | 2024-10-16 13:54 | PC.NURSE ---
pt refusing this nurse to look for an IV, states You have to do ultrasound so go get the US. charge nurse aware.
[2024-10-16] MEDS: ipratropium-albuterol 3 mL Neb INHALATION (14:18)
[2024-10-16] MEDS: albuterol 2.5 mg/3 mL Neb INHALATION (14:18)
[2024-10-16 14:24] LABS: Basophils % 0.3 %; Eosinophils % 0.1 %; Hematocrit 49.5 % (37-53); Lymphocytes # 1.4 10^3/uL (0.8-4.8); Mean Corpuscular HGB Conc 30.3 g/dL (30-55); Mean Corpuscular Hemoglobin 27.3 pg (27-33); Mean Platelet Volume 9.5 fL (7.4-10.4); Monocytes % 8.5 %; Neutrophils # 9.41 10^3/uL (1.8-7.7); Neutrophils % 78.8 %; Nucleated Red Blood Cells % 0 %; Platelet Count 250 10^3/cmm (157-399); Red Cell Distribution Width 16.4 % (12.1-15.1); White Blood Count 11.93 10^3/uL (3.29-11.43)
[2024-10-16] MEDS: methylPREDNISolone sod succ 125 mg/2 mL INJ IV (14:26)
[2024-10-16] MEDS: dilTIAZem 5 mg/mL SDV 5 mL 10 MG IVP (14:31)
[2024-10-16 14:45] LABS: INR 1.12 (0.8-1.2)
[2024-10-16 14:49] LABS: Alanine Aminotransferase 16 U/L (0-41); Albumin Level 3.8 g/dL (3.5-5.2); Alkaline Phosphatase 162 U/L (40-130); Anion Gap 12.4 (5-19); Aspartate Amino Transferase 22 U/L (0-40); Blood Urea Nitrogen 18 mg/dL (8-23); Calcium 10.4 mg/dL (8.5-10.5); Carbon Dioxide 34 mmol/L (22-29); Chloride 94 mmol/L (98-107); Globulin 4.4 g/dL (1.3-4.6); Glomerular Filtration Rate 112.8 mL/min (90-130); Glucose 109 mg/dL (65-115); NT Pro B Type Natriuretic Pept 479 pg/mL (0-125); Osmolality Calculated 284 mOsm/kg (285-295); Potassium 4.4 mmol/L (3.5-5.1); Sodium 136 mmol/L (136-145); Total Bilirubin 0.6 mg/dL (0.15-1.2); Total Protein 8.2 g/dL (6.6-8.7)
--- NOTE | 2024-10-16 14:50 | PC.PHAR ---
Patient stated he took an Eliquistoday and something for his bladder in a white bottle. Patient also stated that he is out of some medicine and he needs refills. 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 I spoke to patient about it and he states that will be good but he needs help with medication once at home.
[2024-10-16 14:52] LABS: Covid PCR NEGATIVE (Negative); Influenza A NEGATIVE (Negative); Influenza B NEGATIVE (Negative); Respiratory Syncytial Virus Ce NEGATIVE (Negative)
[2024-10-16 15:02] LABS: ABG PH Result 7.36 (7.35-7.45)
[2024-10-16 15:03] LABS: Blood Gas Operator Identificat cw; HCO3 ABG 34.6 mmol/L (22-26); PO2 ABG 74.6 mmHg (80.0-100.0); PO2 FiO2 Ratio Arterial Blood 169
[2024-10-16 15:04] LABS: Arterial Blood Gas Hematocrit 44.1 % (42-52); Blood Gas Allen Test POS; Blood Gas Drawn By WALCI; Blood Gas Sample Site LR; Blood Gas Sample Type ART; Oxygen Device NC; Total Hemoglobin 14.4 g/dL (14-18)
[2024-10-16] MEDS: dilTIAZem 100 MG in sodium chloride 0.9% (add-van) 100 ML IV (15:04)
[2024-10-16 15:05] LABS: Carboxyhemoglobin 1.6 %THgb (0.4-20.1); HGB O2 Sat 92.6 % (95-100)
--- NOTE | 2024-10-16 17:14 | PC.NURSE ---
patient arrived on floor at 1706. Report taken from YI Padilla.
--- NOTE | 2024-10-16 17:52 | P.HP_ITS ---
Providers/Chief Complaint 2 Admitting Physician: Leesa Harvey MD Primary Care Provider: Sloan Arias MD Chief Complaint: SOB History of Present Illness Gareth Pickering is a 64 year old male Medications/Allergies Home Medications Medication Instructions Recorded Confirmed Last Taken Type home fill oxygen concentrator #1 ea 04/19/23 10/16/24 Unknown Rx motorized electric scooter #1 ea 04/26/23 10/16/24 Unknown Rx pulse oxymeter #1 ea 04/26/23 10/16/24 Unknown Rx Electric wheelchair #1 ea 05/04/23 10/16/24 Unknown Rx albuterol sulfate 2.5 mg/3 mL 2.5 mg (3 mL) inhalation Q6H PRN 04/27/24 10/16/24 Unknown Rx (0.083 %) solution for nebulization shortness of breath or wheezing #180 mL apixaban 5 mg tablet (Eliquis) 5 mg PO BID #180 tabs 04/27/24 10/16/24 10/16/24 Rx loperamide 2 mg capsule 2 mg PO Q6H PRN loose stool #30 04/27/24 10/16/24 Unknown Rx caps ondansetron 4 mg disintegrating 4 mg PO Q8H PRN nausea and 04/27/24 10/16/24 Unknown Rx tablet vomiting #60 tabs potassium chloride 10 mEq 20 meq (2 x 10 mEq) PO DAILY #180 04/27/24 10/16/24 Unknown Rx tablet,extended release tabs albuterol sulfate 90 mcg/actuation 2 puff inhalation Q6H PRN 06/04/24 10/16/24 Unknown History aerosol inhaler Shortness Of Breath bumetanide 1 mg tablet 1 mg PO BID 06/04/24 10/16/24 Unknown History bupropion HCl 150 mg 24 hr tablet, 150 mg PO QAM 06/04/24 10/16/24 Unknown History extended release tamsulosin 0.4 mg capsule 0.4 mg PO DAILY 06/04/24 10/16/24 09/14/24 History metoprolol tartrate 50 mg tablet 25 mg PO BID 07/16/24 10/16/24 09/14/24 History umeclidinium 62.5 mcg-vilanterol 1 inh inhalation DAILY 07/16/24 10/16/24 Unknown History 25 mcg/actuation powdr for inhalation (Anoro Ellipta) acetaminophen 325 mg tablet 650 mg (2 x 325 mg) PO Q6H #30 tabs 09/14/24 10/16/24 Unknown Rx amiodarone 200 mg tablet (Pacerone) 400 mg (2 x 200 mg) PO DAILY #90 09/14/24 10/16/24 Unknown Rx tabs lidocaine 5 % topical patch 1 patch topical [id number] #30 ea 09/14/24 10/16/24 Unknown Rx sennosides 8.6 mg tablet (senna) 17.2 mg (2 x 8.6 mg) PO BEDTIME 09/14/24 10/16/24 Unknown Rx #30 tabs mirabegron 25 mg tablet,extended 25 mg PO DAILY 10/16/24 10/16/24 Unknown History release 24 hr (Myrbetriq) Allergies Allergy/AdvReac Type Severity Reaction Status Date / Time No Known Allergies Allergy Verified 09/14/24 13:13 PFSH Acute 2 PFSH: Medical History Staphylococcus epidermidis bacteremia Respiratory acidosis Tobacco abuse counseling Chronic neck pain Congestion of throat Diarrhea Open wound of scrotum Sepsis Coag negative Staphylococcus bacteremia Acute on chronic respiratory failure with hypoxia and hypercapnia Abrasion, right lower leg, initial encounter Penile rash Rash of groin Exertional chest pain Congestive heart failure Moderate tricuspid regurgitation Mitral valve prolapse Hyperkalemia Acute hyperkalemia Oxygen dependent Non-compliance Substance abuse Moderate tobacco use disorder Bladder incontinence Lower extremity edema End stage COPD Smoker Tobacco use disorder Heart failure with mildly reduced ejection fraction (HFmrEF) Right heart failure with reduced right ventricular function Rib deformity Acute and chronic respiratory failure with hypoxia Atrial fibrillation with RVR Acute exacerbation of chronic obstructive airways disease Hyperlipidemia Atrial fibrillation COPD (chronic obstructive pulmonary disease) Surgical History History of colon surgery Family History Other CAD (coronary artery disease) Hypertension Lung disease Denies family history of Diabetes Clotting disorder Dementia Hyperlipidemia Psychiatric illness Chronic kidney disease (CKD) Anesthesia complication Bleeding disorder Cancer Stroke Social History Smoking and tobacco/nicotine status: current every day tobacco/nicotine user cigarettes Packs smoked per day: 0.5 Alcohol intake: former Substance/Drug Use: never Lives independently: Yes Current occupational status: disabled Current gender identity: Male Special jeri needs: No Agree to transfusion: Yes Vitals/I&O/Wt Last Vital Signs Temp 97.7 F 10/16/24 13:33 Pulse 98 10/16/24 17:19 Resp 28 H 10/16/24 16:13 BP 114/86 10/16/24 17:19 Pulse Ox 96 10/16/24 17:19 O2 Del Method Nasal Cannula 10/16/24 16:13 O2 Flow Rate 6 10/16/24 16:13 10/16/24 10/16/24 10/16/24 06:59 14:59 22:59 Intake Total 2.333 / 2.333 Balance 2.333 / 2.333 Weight last 48 hrs Weight 95.254 kg Weight 95.254 kg Data 10/16/24 14:12 10/16/24 14:12 Coding Level of Care Code Acute Code for Chg Antione
--- NOTE | 2024-10-16 18:25 | P.HP_ITS ---
Providers/Chief Complaint 2 Admitting Physician: Leesa Harvey MD Primary Care Provider: Sloan Arias MD Chief Complaint: SOB History of Present Illness Gareth Pickering is a 64 year old male with past medical history of COPD, chronically on 6 L of oxygen supplementation, atrial fibrillation, chronic smoker, history of noncompliance, mitral valve prolapse, amphetamine use presents to the ER today because of difficulty in breathing which has been getting worse over the last 4 days. In the ER patient was found to have A-fib with RVR hence was started on Cardizem drip. When seen in [facility] he was on 5 of IV Cardizem with heart rate running in 90 bpm, patient was sleeping but wakes up to verbal stimulus and was able to participate in interview. Patient states he has not refilled his medications as he could not follow-up with his primary care provider, could not go to cardiology office. He states he has been using his oxygen but has not been compliant with his medications. Continues to smoke. On asking if patient is still using amphetamines he becomes extremely agitated, starts yelling explicit, abusive and racial language. He starts to threaten that nothing regarding amphetamine should be mentioned in his chart. Patient had to be reminded multiple times that we are trying to help him and get him better and there are multiple other patients in the hospital as well so he needs to calm down and behave better. Also had to be reminded that we are only asking questions which are pertinent to his health and only factual things will be mentioned in his chart which he cannot determine or decide. Later during the conversation patient settles down and starts having at dinner and is able to participate in a more calm and less agitated manner. Review of Systems 2 General: Reports: 10 or more systems reviewed and unremarkable except in HPI and below Const: Denies: fever(s), chills, body aches, change in appetite, change in weight, malaise, night sweats, diaphoresis, change in sleep pattern, daytime sleepiness or snoring Eyes: Denies: change in vision, blurry vision, photophobia, eye discomfort or eye discharge ENMT: Denies: throat pain, enlarged tonsils, hoarseness, mouth pain, oral sores, dry mouth, tinnitus, nasal congestion or post nasal drip Card: Denies: chest pain, palpitations, irregular heart rhythm, edema, swelling of feet/ankles, lightheadedness, syncope, pre-syncope, dyspnea on exertion, orthopnea, leg pain with exertion or acrocyanosis Resp: Denies: dyspnea, productive cough, non-productive cough, wheezing, stridor, pain on inspiration, change in phlegm color, hemoptysis or chest congestion GI: Denies: abdominal pain, nausea, vomiting, hematemesis, coffee ground emesis, dysphagia, heartburn, diarrhea, constipation, bloating, GI cramping, change in bowel habits, pain on defecation, hematochezia or melena : Denies: flank pain, difficulty urinating, dysuria, urinary frequency, urinary urgency, urinary hesitancy, urinary dribbling, difficulty starting urination, change in urine stream, nocturia or hematuria Musc: Denies: neck pain, back pain, extremity pain, joint pain, joint swelling, joint redness, joint stiffness or limited range of motion Neuro: Denies: headache(s), numbness in extremities, weakness in extremities, sensory changes, lack of coordination, difficulty walking, frequent falls, dizziness, vertigo, confusion, Slurred speech present, difficulty communicating thoughts or seizure-like activity Psych: Denies: anxiety, depression, mood swings, panic attacks, hopelessness or irritability Endo: Denies: polyuria, polydipsia, tired all the time, cold intolerance, excessive sweating, flushing or heat intolerance Chay/Lymph: Denies: easy bruising or easy bleeding All/Imm: Denies: tongue swelling, facial swelling or acute wheezing Medications/Allergies Home Medications Medication Instructions Recorded Confirmed Last Taken Type home fill oxygen concentrator #1 ea 04/19/23 10/16/24 Unknown Rx motorized electric scooter #1 ea 04/26/23 10/16/24 Unknown Rx pulse oxymeter #1 ea 04/26/23 10/16/24 Unknown Rx Electric wheelchair #1 ea 05/04/23 10/16/24 Unknown Rx albuterol sulfate 2.5 mg/3 mL 2.5 mg (3 mL) inhalation Q6H PRN 04/27/24 10/16/24 Unknown Rx (0.083 %) solution for nebulization shortness of breath or wheezing #180 mL apixaban 5 mg tablet (Eliquis) 5 mg PO BID #180 tabs 04/27/24 10/16/24 10/16/24 Rx loperamide 2 mg capsule 2 mg PO Q6H PRN loose stool #30 04/27/24 10/16/24 Unknown Rx caps ondansetron 4 mg disintegrating 4 mg PO Q8H PRN nausea and 04/27/24 10/16/24 Unknown Rx tablet vomiting #60 tabs potassium chloride 10 mEq 20 meq (2 x 10 mEq) PO DAILY #180 04/27/24 10/16/24 Unknown Rx tablet,extended release tabs albuterol sulfate 90 mcg/actuation 2 puff inhalation Q6H PRN 06/04/24 10/16/24 Unknown History aerosol inhaler Shortness Of Breath bumetanide 1 mg tablet 1 mg PO BID 06/04/24 10/16/24 Unknown History bupropion HCl 150 mg 24 hr tablet, 150 mg PO QAM 06/04/24 10/16/24 Unknown History extended release tamsulosin 0.4 mg capsule 0.4 mg PO DAILY 06/04/24 10/16/24 09/14/24 History metoprolol tartrate 50 mg tablet 25 mg PO BID 07/16/24 10/16/24 09/14/24 History umeclidinium 62.5 mcg-vilanterol 1 inh inhalation DAILY 07/16/24 10/16/24 Unknown History 25 mcg/actuation powdr for inhalation (Anoro Ellipta) acetaminophen 325 mg tablet 650 mg (2 x 325 mg) PO Q6H #30 tabs 09/14/24 10/16/24 Unknown Rx amiodarone 200 mg tablet (Pacerone) 400 mg (2 x 200 mg) PO DAILY #90 09/14/24 10/16/24 Unknown Rx tabs lidocaine 5 % topical patch 1 patch topical [id number] #30 ea 09/14/24 10/16/24 Unknown Rx sennosides 8.6 mg tablet (senna) 17.2 mg (2 x 8.6 mg) PO BEDTIME 09/14/24 10/16/24 Unknown Rx #30 tabs mirabegron 25 mg tablet,extended 25 mg PO DAILY 10/16/24 10/16/24 Unknown History release 24 hr (Myrbetriq) Allergies Allergy/AdvReac Type Severity Reaction Status Date / Time No Known Allergies Allergy Verified 09/14/24 13:13 PFSH Acute 2 PFSH: Medical History (Updated 10/16/24 @ 21:58 by Vahe Lozano MD) Heart failure with mildly reduced ejection fraction (HFmrEF) Non-compliance Acute and chronic respiratory failure with hypoxia Staphylococcus epidermidis bacteremia Respiratory acidosis Tobacco abuse counseling Chronic neck pain Congestion of throat Diarrhea Open wound of scrotum Sepsis Coag negative Staphylococcus bacteremia Acute on chronic respiratory failure with hypoxia and hypercapnia Abrasion, right lower leg, initial encounter Penile rash Rash of groin Exertional chest pain Congestive heart failure Moderate tricuspid regurgitation Mitral valve prolapse Hyperkalemia Acute hyperkalemia Oxygen dependent Substance abuse Moderate tobacco use disorder Bladder incontinence Lower extremity edema End stage COPD Smoker Tobacco use disorder Right heart failure with reduced right ventricular function Rib deformity Atrial fibrillation with RVR Acute exacerbation of chronic obstructive airways disease Hyperlipidemia Atrial fibrillation COPD (chronic obstructive pulmonary disease) Surgical History History of colon surgery Family History Other CAD (coronary artery disease) Hypertension Lung disease Denies family history of Diabetes Clotting disorder Dementia Hyperlipidemia Psychiatric illness Chronic kidney disease (CKD) Anesthesia complication Bleeding disorder Cancer Stroke Social History Smoking and tobacco/nicotine status: current every day tobacco/nicotine user cigarettes Packs smoked per day: 0.5 Alcohol intake: former Substance/Drug Use: never Lives independently: Yes Current occupational status: disabled Current gender identity: Male Special jeri needs: No Agree to transfusion: Yes Vitals/I&O/Wt Last Vital Signs Temp 97.7 F 10/16/24 13:33 Pulse 98 10/16/24 17:19 Resp 28 H 10/16/24 16:13 BP 114/86 10/16/24 17:19 Pulse Ox 96 10/16/24 17:19 O2 Del Method Nasal Cannula 10/16/24 16:13 O2 Flow Rate 6 10/16/24 16:13 10/16/24 10/16/24 10/16/24 06:59 14:59 22:59 Intake Total 2.333 / 2.333 Balance 2.333 / 2.333 Weight last 48 hrs Weight 95.254 kg Weight 95.254 kg Physical Exam 2 Narrative: General: No acute distress, AO x3, Chronically sick appearing, agitated, abusive on nasal cannula HEENT: PERRLA, pupils bilaterally equal and reactive Chest: Bronchial breath sounds all over lung bonilla with occasional rhonchi and fine crackles CVS: S1-S2 Irregularly irregular, no murmurs, no tachycardia, no gallops, no rubs Abdomen: Soft, nontender, no organomegaly, bowel sounds present Neuro: No focal deficits, no facial deformity, AO x3, power 5/5 in all limbs Data 10/16/24 14:12 10/16/24 14:12 A&P Assessment and plan (1) Atrial fibrillation with RVR: Currently rate controlled. On 5 of IV Cardizem drip. Patient noncompliant to medications including amiodarone and metoprolol 150 mg of IV amiodarone bolus as patient has been noncompliant to his amiodarone at home. Continue with home dose of metoprolol. Wean Cardizem drip keeping heart rate below 100. Check urine drug screen, alcohol level. TSH checked within the last 2 months to be normal. C/w Eliquis (2) Acute and chronic respiratory failure with hypoxia: Chronically on 6 L of oxygen. End-stage COPD. Not compliant to inhalers. Continues to smoke. Check respiratory viral panel. History of MRSA pneumonia in the past. Empirically for now start on linezolid and Levaquin. Chances of pneumonia very less likely. Pulmicort twice daily, ipratropium, Xopenex every 6 hours Prednisone 40 mg oral daily IV Lasix 40 mg one-time. For now we will continue Bumex 1 mg twice daily home oral dose from a.m. Fluid restriction to less than 1500 cc. (3) COPD exacerbation: (4) Heart failure with mildly reduced ejection fraction (HFmrEF): (5) Non-compliance: Will try to refill medications and make an appointment with PCP again before discharge. Consult patient in detail about need for compliance with medications. Could not be counseled about smoking cessation because of his agitation and belligerent behavior. 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 Will recheck urine drug screen, alcohol level. Plan Full code Cardiac diet Eliquis for DVT prophylaxis Protonix for PUD prophylaxis Patient explained in detail multiple times that all the physicians, nursing staff and [employer]ORN[employer]'s are trying to make him better and help. Explained to him in detail that he is in hospital where there are other sick people for which he has to maintain sanctity and not yelling, abusive for racial language. Attestations 2 Medical Necessity Statement*: Admission for more than 2 midnights for management of A-fib with RVR, acute on chronic hypoxic respiratory failure in setting of COPD and CHF exacerbation Diagnoses Atrial fibrillation with RVR I48.91 Acute and chronic respiratory failure with hypoxia J96.21 COPD exacerbation J44.1 Heart failure with mildly reduced ejection fraction (HFmrEF) I50.22 Non-compliance Z91.199 Amphetamine abuse F15.10
[2024-10-16] MEDS: apixaban 5 mg Tablet PO (18:27)
[2024-10-16] MEDS: metoprolol tartrate 50 mg Tablet 25 MG PO (18:27)
[2024-10-16] MEDS: linezolid 600 mg Tablet PO (18:33)
[2024-10-16] MEDS: amiodarone 50 mg/mL SDV 3 mL 150 MG IVP (18:33)
[2024-10-16] MEDS: levoFLOXacin 750 mg Tablet PO (18:34)
[2024-10-16 18:50] LABS: Alcohol Level < 10 mg/dL (0-10)
[2024-10-16 19:08] LABS: Bilirubin Urine Negative (Negative); Blood Urine Negative (Negative); Glucose Urine UA Negative (Normal); Ketones Urine Negative (Negative); Leukocyte Esterase Urine Negative (Negative); Nitrate Urine Negative (Negative); Protein Urine 2+ (Negative); Specific Gravity, Urine 1.026 (1.005-1.030); Urine Appearance Clear (CLEAR); Urine Color Yellow (Yellow); pH Urine 5.5 (5-7)
[2024-10-16 19:15] LABS: Amphetamines Screen Urine Positive (Negative); Barbiturates Screen Urine Negative (Negative); Benzodiazepines Screen Urine Negative (Negative); Cocaine Screen Urine Negative (Negative); Opiate Screen Urine Negative (Negative); PCP Screen Urine Negative (Negative); THC Screen Urine Negative (Negative)
[2024-10-16 19:36] LABS: Add Urine Microscopic? YES; RBC Urine 0-4 /hpf (0-2); UA Manual Slide Review YES; WBC Urine 0-4 /hpf (0-5)
[2024-10-16] MEDS: acetaminophen 325 mg Tablet 650 MG PO (20:18)
[2024-10-16] MEDS: levalbuterol 0.63 mg/3 mL Neb INHALATION (20:26)
[2024-10-16] MEDS: ipratropium 0.5 mg/2.5 mL Neb INHALATION (20:26)
[2024-10-16 22:41] LABS: Procalcitonin 0.27 ng/mL (0-0.5)
[2024-10-16] MEDS: pantoprazole 40 mg SDV IVP (23:27)
[2024-10-17] VITALS (8 sets, daily range): BP systolic 106–131; BP diastolic 69–83; PULSE 80–101; RESP 16–34; TEMP 36.3–36.8; O2SAT 92–96
[2024-10-17 00:27] LABS: Adenovirus Not Detected (NOT DETECT); Chlamydia Pneumoniae Not Detected (NOT DETECT); Coronavirus 229E,HKU1,NL63,OC4 Not Detected (NOT DETECT); Human Metapneumovirus Not Detected (NOT DETECT); Human Rhinovirus/Enterovirus Detected (NOT DETECT); Influenza A Not Detected (NOT DETECT); Influenza A H1 Not Detected (NOT DETECT); Influenza A H1-2009 Not Detected (NOT DETECT); Influenza A H3 Not Detected (NOT DETECT); Influenza B Not Detected (NOT DETECT); Mycoplasma Pneumoniae Not Detected (NOT DETECT); Parainfluenza Virus Type 1 Not Detected (NOT DETECT); Parainfluenza Virus Type 2 Not Detected (NOT DETECT); Parainfluenza Virus Type 3 Not Detected (NOT DETECT); Parainfluenza Virus Type 4 Not Detected (NOT DETECT); Respiratory Syncytial Virus A Not Detected (NOT DETECT); Respiratory Syncytial Virus B Not Detected (NOT DETECT); SARS-COV-2 Not Detected (NOT DETECT)
[2024-10-17] MEDS: efferdent effervescent 1 EACH DENTAL (04:11)
[2024-10-17] MEDS: linezolid 600 mg Tablet PO (05:02)
[2024-10-17] MEDS: levoFLOXacin 750 mg Tablet PO (05:02)
[2024-10-17] MEDS: budesonide 0.5 mg/2 mL Neb INHALATION (07:24)
[2024-10-17] MEDS: levalbuterol 0.63 mg/3 mL Neb INHALATION (07:24)
[2024-10-17] MEDS: ipratropium 0.5 mg/2.5 mL Neb INHALATION (07:25)
--- NOTE | 2024-10-17 09:15 | PM.DCS ---
Discharge Providers Date of Admission: 10/16/24 15:34 Date of Discharge: October 17, 2024 Attending Provider at Admission: Leesa Harvey MD Attending Provider at Discharge: Vahe Lozano MD Primary Care Provider: Sloan Arias MD Diagnoses at Discharge Discharge Diagnosis (1) Atrial fibrillation with RVR: Status: Acute (2) Acute and chronic respiratory failure with hypoxia: Status: Acute (3) COPD exacerbation: Status: Acute (4) Heart failure with mildly reduced ejection fraction (HFmrEF): Status: Acute (5) Non-compliance: Status: Acute (6) Amphetamine abuse: Status: Acute Reason for Visit Reason for Visit: SOB Hospital Course Hospital Course Gareth Pickering is a 64 year old male with past medical history of COPD, chronically on 6 L of oxygen supplementation, atrial fibrillation, chronic smoker, history of noncompliance, mitral valve prolapse, amphetamine use presents to the ER today because of difficulty in breathing which has been getting worse over the last 4 days. In the ER patient was found to have A-fib with RVR hence was started on Cardizem drip. When seen in [facility] he was on 5 of IV Cardizem with heart rate running in 90 bpm, patient was sleeping but wakes up to verbal stimulus and was able to participate in interview. Patient states he has not refilled his medications as he could not follow-up with his primary care provider, could not go to cardiology office. He states he has been using his oxygen but has not been compliant with his medications. Continues to smoke. On asking if patient is still using amphetamines he becomes extremely agitated, starts yelling expletives, abusive and racial language. He starts to threaten that nothing regarding amphetamine should be mentioned in his chart. Patient had to be reminded multiple times that we are trying to help him and get him better and there are multiple other patients in the hospital as well so he needs to calm down and behave better. Also had to be reminded that we are only asking questions which are pertinent to his health and only factual things will be mentioned in his chart which he cannot determine or decide. Later during the conversation patient settles down and starts having at dinner and is able to participate in a more calm and less agitated manner. Patient was admitted to the hospital further evaluation management. He was given a bolus of amiodarone given his noncompliance to medications. His heart rate was well-controlled on Cardizem drip for weaned off. Workup during hospitalization showed that patient has a rhinovirus infection which is most likely the reason for his COPD exacerbation. He was started on oral steroids after which he has been back to his baseline oxygen supplementation. His hospitalization was otherwise unremarkable. Care was disturbed multiple times because of his behavior, expletive towards multiple staff members. Patient was counseled in detail about taking his medications daily, following up with his PCP regularly. Various medications which patient does not have at home are being refilled for 30-day supply. He has been counseled to follow-up with his PCP at the earliest. He has been counseled in detail to avoid smoking and amphetamines. Physical Exam Narrative: General: No acute distress, AO x3, Chronically sick appearing, agitated, abusive on nasal cannula HEENT: PERRLA, pupils bilaterally equal and reactive Chest: Bronchial breath sounds all over lung bonilla with occasional rhonchi and fine crackles CVS: S1-S2 Irregularly irregular, no murmurs, no tachycardia, no gallops, no rubs Abdomen: Soft, nontender, no organomegaly, bowel sounds present Neuro: No focal deficits, no facial deformity, AO x3, power 5/5 in all limbs Discharge Data Studies Completed and Pending Completed Studies During Hospitalization Category Date Time Status XR chest 1V portable [id number] Stat Exams 10/16/24 13:41 Completed Pending at discharge Category Date Time Status Complete Blood Count w/Auto AM LABS Lab 10/17/24 04:00 Ordered Comprehensive Metabolic Panel AM LABS Lab 10/17/24 04:00 Ordered Magnesium AM LABS Lab 10/17/24 04:00 Ordered Phosphorus AM LABS Lab 10/17/24 04:00 Ordered Procalcitonin AM LABS Lab 10/17/24 04:00 Ordered Sputum Culture and Gram Stain Stat Lab 10/16/24 18:20 Uncollected Radiology Impressions Chest X-Ray 10/16/24 13:41 IMPRESSION: No acute pathology or significant interval change. Laboratory Results WBC 11.93 10^3/uL (3.29-11.43) H 10/16/24 14:12 RBC 5.50 10^6/uL (3.85-5.65) 10/16/24 14:12 Hgb 15.00 g/dL (11.27-16.99) 10/16/24 14:12 Hct 49.5 % (37-53) 10/16/24 14:12 MCV 90.0 fl (82-101) 10/16/24 14:12 MCH 27.3 pg (27-33) 10/16/24 14:12 MCHC 30.3 g/dL (30-55) 10/16/24 14:12 RDW 16.4 % (12.1-15.1) H 10/16/24 14:12 Plt Count 250 10^3/cmm (157-399) 10/16/24 14:12 MPV 9.5 fL (7.4-10.4) 10/16/24 14:12 Neut % (Auto) 78.8 % 10/16/24 14:12 Lymph % (Auto) 12.0 % 10/16/24 14:12 [place] % (Auto) 8.5 % 10/16/24 14:12 Eos % (Auto) 0.1 % 10/16/24 14:12 Baso % (Auto) 0.3 % 10/16/24 14:12 Neut # (Auto) 9.41 10^3/uL (1.8-7.7) H 10/16/24 14:12 Lymph # (Auto) 1.4 10^3/uL (0.8-4.8) 10/16/24 14:12 [place] # (Auto) 1.0 10^3/uL (0.2-0.9) H 10/16/24 14:12 Eos # (Auto) 0.0 10^3/uL (0.0-0.8) 10/16/24 14:12 Baso # (Auto) 0.0 10^3/uL (0.0-0.1) 10/16/24 14:12 Nucleated RBC % (auto) 0 % 10/16/24 14:12 Nucleated RBCs # 0.0 /100WBC 10/16/24 14:12 PT 15.20 SECONDS (12.1-14.9) H 10/16/24 14:12 INR 1.12 (0.8-1.2) 10/16/24 14:12 Specimen Type Art 10/16/24 13:56 Sample Site Lr 10/16/24 13:56 ABG pH 7.36 (7.35-7.45) 10/16/24 13:56 ABG pCO2 61.0 mmHg (35-45) H* 10/16/24 13:56 ABG pO2 74.6 mmHg (80.0-100.0) L 10/16/24 13:56 ABG PO2/FiO2 Ratio 169 10/16/24 13:56 ABG HCO3 34.6 mmol/L (22-26) H 10/16/24 13:56 ABG Base Excess 7.0 mmol/L (-2.0-2.0) H 10/16/24 13:56 Jacob Test Pos 10/16/24 13:56 Hematocrit 44.1 % (42-52) 10/16/24 13:56 Hgb O2 Saturation 92.6 % (95-100) L 10/16/24 13:56 Carboxyhemoglobin 1.6 %THgb (0.4-20.1) 10/16/24 13:56 Methemoglobin 1.0 % (0.4-1.5) 10/16/24 13:56 Total Hemoglobin 14.4 g/dL (14-18) 10/16/24 13:56 O2 Delivery Device Nc 10/16/24 13:56 O2 Liters/Min 6.0 % 10/16/24 13:56 FiO2 44.0 % 10/16/24 13:56 Specimen Drawn By [place] 10/16/24 13:56 [employer] Teammate ID cw 10/16/24 13:56 Sodium 136 mmol/L (136-145) 10/16/24 14:12 Potassium 4.4 mmol/L (3.5-5.1) 10/16/24 14:12 Chloride 94 mmol/L (98-107) L 10/16/24 14:12 Carbon Dioxide 34 mmol/L (22-29) H 10/16/24 14:12 Anion Gap 12.4 (5-19) 10/16/24 14:12 BUN 18 mg/dL (8-23) 10/16/24 14:12 Creatinine 0.7 mg/dL (0.7-1.2) 10/16/24 14:12 GFR Calculation 112.8 mL/min (90-130) 10/16/24 14:12 Glucose 109 mg/dL (65-115) 10/16/24 14:12 Calculated Osmolality 284 mOsm/kg (285-295) L 10/16/24 14:12 Calcium 10.4 mg/dL (8.5-10.5) 10/16/24 14:12 Total Bilirubin 0.6 mg/dL (0.15-1.2) 10/16/24 14:12 AST 22 U/L (0-40) 10/16/24 14:12 ALT 16 U/L (0-41) 10/16/24 14:12 Alkaline Phosphatase 162 U/L (40-130) H 10/16/24 14:12 NT-Pro-B Natriuret Pep 479 pg/mL (0-125) H 10/16/24 14:12 Total Protein 8.2 g/dL (6.6-8.7) 10/16/24 14:12 Albumin 3.8 g/dL (3.5-5.2) 10/16/24 14:12 Globulin 4.4 g/dL (1.3-4.6) 10/16/24 14:12 Procalcitonin 0.27 ng/mL (0-0.5) 10/16/24 14:12 Urine Color Yellow (Yellow) 10/16/24 18:21 Urine Appearance Clear (CLEAR) 10/16/24 18:21 Urine pH 5.5 (5-7) 10/16/24 18:21 Ur Specific [place] 1.026 (1.005-1.030) 10/16/24 18:21 Urine Protein 2+ (Negative) A 10/16/24 18:21 Urine Glucose (UA) Negative (Normal) 10/16/24 18:21 Urine Ketones Negative (Negative) 10/16/24 18: Urine Blood Negative (Negative) 10/16/24 18:21 Urine Nitrate Negative (Negative) 10/16/24 18:21 Urine Bilirubin Negative (Negative) 10/16/24 18: Urine Urobilinogen 1.0 mg/dL (Negative) 10/16/24 18:21 Ur Leukocyte Esterase Negative (Negative) 10/16/24 18:21 Urine RBC 0-4 /hpf (0-2) H 10/16/24 18:21 Urine WBC 0-4 /hpf (0-5) H 10/16/24 18:21 Ur Squamous Epith Cells None /hpf (0-5) 10/16/24 18:21 Amorphous Sediment Not Reportable 10/16/24 18:21 Urine Bacteria None /hpf (NONE) 10/16/24 18:21 Urine Opiates Screen Negative ng/mL (Negative) 10/16/24 18:21 Ur Barbiturates Screen Negative ng/mL (Negative) 10/16/24 18:21 Ur Phencyclidine Scrn Negative ng/mL (Negative) 10/16/24 18:21 Ur Amphetamines Screen Positive ng/mL (Negative) H 10/16/24 18:21 U Benzodiazepines Scrn Negative ng/mL (Negative) 10/16/24 18:21 Urine Cocaine Screen Negative ng/mL (Negative) 10/16/24 18:21 U Marijuana (THC) Screen Negative ng/mL (Negative) 10/16/24 18:21 Ethyl Alcohol < 10 mg/dL (0-10) 10/16/24 14:12 Adenovirus (PCR) Not detected (NOT DETECT) 10/16/24 22:06 C. pneumoniae DNA (PCR) Not detected (NOT DETECT) 10/16/24 22:06 Coronavirus (PCR) Negative (Negative) 10/16/24 14:04 Coronavirus 229E (PCR) Not detected (NOT DETECT) 10/16/24 22:06 Human Metapneumovir PCR Not detected (NOT DETECT) 10/16/24 22:06 Influenza A (H1) PCR Not detected (NOT DETECT) 10/16/24 22:06 Influenza A (PCR) Negative (Negative) 10/16/24 14:04 Influ A (H1/09) PCR Not detected (NOT DETECT) 10/16/24 22:06 Influenza A (H3) PCR Not detected (NOT DETECT) 10/16/24 22:06 Influenza Type A (PCR) Not detected (NOT DETECT) 10/16/24 22:06 Influenza Type B (PCR) Not detected (NOT DETECT) 10/16/24 22:06 M. pneumoniae (PCR) Not detected (NOT DETECT) 10/16/24 22:06 Parainfluenza 1 (PCR) Not detected (NOT DETECT) 10/16/24 22:06 Parainfluenza 2 (PCR) Not detected (NOT DETECT) 10/16/24 22:06 Parainfluenza 3 (PCR) Not detected (NOT DETECT) 10/16/24 22:06 Parainfluenza 4 (PCR) Not detected (NOT DETECT) 10/16/24 22:06 RSV (PCR) Negative (Negative) 10/16/24 14:04 RSV Type A (PCR) Not detected (NOT DETECT) 10/16/24 22:06 RSV Type B (PCR) Not detected (NOT DETECT) 10/16/24 22:06 Entero/Rhino (PCR) Detected (NOT DETECT) A 10/16/24 22:06 SARS-CoV-2 (PCR) Not detected (NOT DETECT) 10/16/24 22:06 Vitals Last Vital Signs Temp 97.3 F L 10/17/24 08:00 Pulse 101 H 10/17/24 08:00 Resp 24 H 10/17/24 08:00 BP 115/77 10/17/24 08:00 Pulse Ox 94 10/17/24 08:00 O2 Del Method Nasal Cannula 10/17/24 08:00 O2 Flow Rate 5 10/17/24 08:00 Discharge Plan Discharge Patient Disposition: Home Condition: Stable Prescriptions: New prednisone 20 mg Tablet 40 mg PO DAILY Qty: 14 0RF linezolid 600 mg Tablet 600 mg PO Q12H Qty: 10 0RF levofloxacin 750 mg Tablet 750 mg PO DAILY@0600 Qty: 5 0RF ipratropium-albuterol 0.5 mg-3 mg(2.5 mg base)/3 mL solution for nebulization 3 ml inhalation Q8H 30 Days Qty: 180 0RF diltiazem HCl [Cardizem CD] 180 mg capsule,extended release 24hr 180 mg PO DAILY Qty: 30 0RF Continued (DME) motorized electric scooter See Rx Instructions .Route .MEDSUPPLY Qty: 1 0RF Rx Instructions: As directed (DME) pulse oxymeter See Rx Instructions .Route .MEDSUPPLY Qty: 1 0RF Rx Instructions: As directed Eliquis 5 mg tablet 5 mg PO BID Qty: 180 1RF Hold Instructions: Resume on 10/15/24. potassium chloride 10 mEq tablet extended release 20 meq PO DAILY Qty: 180 1RF albuterol sulfate 2.5 mg /3 mL (0.083 %) solution for nebulization 2.5 mg inhalation Q6H PRN (Reason: shortness of breath or wheezing) Qty: 180 5RF Rx Instructions: to use while DuoNeb is unavailable ondansetron 4 mg tablet,disintegrating 4 mg PO Q8H PRN (Reason: nausea and vomiting) Qty: 60 1RF loperamide 2 mg capsule 2 mg PO Q6H PRN (Reason: loose stool) Qty: 30 0RF (DME) home fill oxygen concentrator See Rx Instructions .Route .MEDSUPPLY Qty: 1 0RF Rx Instructions: As directed, 6L NC (DME) Electric wheelchair See Rx Instructions .Route .MEDSUPPLY Qty: 1 0RF Rx Instructions: As directed sennosides [senna] 8.6 mg Tablet 17.2 mg PO BEDTIME Qty: 30 3RF lidocaine 5 % Adhesive Patch,Medicated 1 patch topical [id number] Qty: 30 0RF acetaminophen 325 mg Tablet 650 mg PO Q6H Qty: 30 3RF albuterol sulfate 90 mcg/actuation HFA aerosol inhaler 2 puff INHALATION Q6H PRN (Reason: Shortness Of Breath) bupropion HCl 150 mg tablet extended release 24 hr 150 mg PO QAM Anoro Ellipta 62.5-25 mcg/actuation blister with device 1 inh inhalation DAILY mirabegron [Myrbetriq] 25 mg tablet extended release 24 hr 25 mg PO DAILY tamsulosin 0.4 mg capsule 0.4 mg PO DAILY Qty: 30 0RF bumetanide 1 mg tablet 1 mg PO BID Qty: 60 0RF Changed amiodarone [Pacerone] 200 mg Tablet 200 mg PO DAILY Qty: 30 0RF Discontinued metoprolol tartrate 50 mg tablet 25 mg PO BID Discharge Orders: Discharge Order (Routine); Ordered 10/17/24 Ordered By: Vahe Lozano Referrals: Sloan Arias MD [Primary Care Provider] - 11/06/24 9:30 am Discharge Diet: Cardiac Discharge Activity: Resume usual activity and Increase activity as tolerated Patient Instructions: Diltiazem (By mouth) (Cardizem, Cardizem CD, Cardizem LA, Cardizem SR), Ipratropium (By breathing), Prednisone (By mouth) (Prednisone Intensol, Prednicot, Deltasone, Hali), Levofloxacin (By mouth) (Levaquin, Levaquin Leva-krystal), Linezolid (By mouth) (Zyvox), Methamphetamine Abuse, Heart Failure (DC), A-fib (Atrial Fibrillation) (DC), Methamphetamine Use Disorder (DC), Dyspnea (DC), CHF Stoplight, Opioid Safety Activity Restrictions/Additional Instructions: Restrict fluid intake to less than 1500 cc, salt intake to less than 2 g daily. Advised to check his weight daily at home. Is advised that weight today would be the dry weight and if body weight increases by around 5 pounds, patient is to take an extra dose of Bumex daily till body weight comes down to weight today. If not able to come down to dry body weight in 1 week, then is to call cardiology office for further recommendations. Patient was counseled in detail to take medications regularly as prescribed. Try to avoid smoking and amphetamines as much as he can. Please take your medications daily. Please follow-up with a primary care provider on set appointment. Metoprolol has been changed to Cardizem. Cardizem initiating 1 times a day. Discharge Attestations Time Spent in Discharge Care*: greater than 30 min Specific Discharge Activities: educating patient, discussing with pcp/other providers, discussing with pillowcase folder/social workers/dc planners, documenting/other paperwork and evaluating patient/reviewing data Status at Discharge: Cognitive status at discharge: mildly impaired cognition, Behavioral status at discharge: can be uncooperative (Abusive, expletive, yelling), Overall status at discharge: patient is back to baseline Quality Metrics Clinical Quality Measures [ No reported AMI, CVA or VTE this stay] Coding Level of Care Code 85359 Total time (in minutes) for Discharge: 60 Diagnoses Atrial fibrillation with RVR I48.91 Acute and chronic respiratory failure with hypoxia J96.21 COPD exacerbation J44.1 Heart failure with mildly reduced ejection fraction (HFmrEF) I50.22 Non-compliance Z91.199 Amphetamine abuse F15.10
[2024-10-17] MEDS: metoprolol tartrate 50 mg Tablet 25 MG PO (09:36)
[2024-10-17] MEDS: apixaban 5 mg Tablet PO (09:37)
[2024-10-17] MEDS: predniSONE 20 mg Tablet 40 MG PO (09:37)
--- NOTE | 2024-10-17 09:37 | PC.CHAP ---
Pastoral Care Encounter/Spiritual Assessment Type of Contact [] Declined seed laboratory technician visit [] Patient/Family/Request visit [] Outpatient visit [] Follow-up visit [] Physician referral [] Code/Alert [] Routine visit [] Staff referral [] Actively dying [] Patient sleeping [] Family support [] [] Out of room [] Palliative care [] [] Receiving care in room [] Pre-surgical visit [] Trauma [] Long length of stay [] ICU visit [x] Other:Contact precautions. No visit. Relational/Emotional Strength [] Patient feels connected with others/family/visitors/staff [] Distress [] Loneliness/isolation [] Abandonment Spirituality of Patient [] Person of Xenia [] Attends Jew of their Xenia [] Believes in Prayer [] Reads Bible or Druze materials [] There are Spiritual issues to be addressed Ammonia Distiller Interventions [] Prayer [] Active listening [] Non-anxious presence [] Spiritual/emotional support [] Crisis/trauma care [] Spiritual counseling [] Bereavement support [] Provided bereavement packet [] Provided Bible/devotional materials [] Provided toy/stuffed animal, coloring book to patient or family member [] Provided Communion [] Anointing/[place] [] Salvation [] Completed spiritual assessment [] Other: Impact on Illness or Injury [] Angry [] Fearful [] Anxious [] Often cries [] Exhaustion [] Unable to work [] Unable to attend mandaeism [] Unable to walk/stand [] Unable to read [] Unable to drive [] Unable to eat/drink [] Unable to sleep [] Unable to be with family [] Patient intubated [] Other: Summary Time spent with patient
[2024-10-17] MEDS: tamsulosin 0.4 mg Capsule PO (09:38)
[2024-10-17] MEDS: amiodarone 200 mg Tablet PO (09:38)
--- NOTE | 2024-10-17 09:58 | PC.NURSE ---
pt began shift with screaming obscenities at this nurse for no reason...stated he wasnt going to take his meds..he wants to eat NOW...and then requesting that nurse apply lotion to his scrotum...dr hdez notified.
--- NOTE | 2024-10-17 11:52 | PC.NURSE ---
pt became very angry...screaming,swearing at staff,throwing items,repeatedly slammed call fofana onto table and broke it...all due to pt being discharged.at first pt refused discharge...now is demanding discharge, but ride wont be here until 13:00.security called and are here.he wants them out of my room !...and cursed them too.
--- NOTE | 2024-10-17 13:45 | PC.NURSE ---
discharge medications provided by [facility] pharmacy meds to beds program.discharge instructions given and explained.pt not interested in instructions on chf...states i want the hell out or here .Instructed in new medications.he verb understanding.discharged via w/c to exit at 1330.friend to drive pt home.
== END 2024-10-17 13:49 | disposition home or self-care (01) | DRG 291 ==
LOC: ER 15:22 → ER IP 15:35 → CSU 16:45
PROVIDERS: Admitting Provider Student in an Organized Health Care Education/Training Program; Emergency Provider Emergency Medicine; PCP Family Medicine; Visit Provider Student in an Organized Health Care Education/Training Program
DX: I50.23 Acute on chronic systolic (congestive) heart failure (principal); J96.21 Acute and chronic respiratory failure with hypoxia; J44.1 Chronic obstructive pulmonary disease with (acute) exacerbation; I48.91 Unspecified atrial fibrillation; B97.89 Other viral agents as the cause of diseases classified elsewhere; F15.10 Other stimulant abuse, uncomplicated; Z99.81 Dependence on supplemental oxygen; I08.1 Rheumatic disorders of both mitral and tricuspid valves; Z79.01 Long term (current) use of anticoagulants; E78.5 Hyperlipidemia, unspecified; Z87.01 Personal history of pneumonia (recurrent); F17.210 Nicotine dependence, cigarettes, uncomplicated; Z91.128 Patient's intentional underdosing of medication regimen for other reason
CPT/HCPCS: 36600; 71045; 80053; 80306; 80307; 81001; 82805; 83880; 84145; 85025; 85610; 87486; 87581; 87633; 87637; 93005; 94640; 96365; 96375; 99285; J0282; J2470; J2919; J3490; J7512; J7613; J7614; J7626; J7644

== ENCOUNTER 2025-02-21 10:07 | Outpatient (CLI) | payer MEDICARE, MEDICAID, SELFPAY ==
--- NOTE | 2025-02-21 10:17 | CTR_ITS ---
PROCEDURE INFORMATION: Exam: CT Chest Without Contrast; Diagnostic Exam date and time: 02/21/2025 10:36 AM Age: 64 years old Clinical indication: Condition or disease; Lung condition and disease; Copd; Prior surgery; Surgery date: 6+ months; Surgery type: Ribs TECHNIQUE: Imaging protocol: Diagnostic computed tomography of the chest without contrast. Radiation optimization: All CT scans at this facility use at least one of these dose optimization techniques: automated exposure control; mA and/or kV adjustment per patient size (includes targeted exams where dose is matched to clinical indication); or iterative reconstruction. COMPARISON: CT chest wo con [id number] 09/10/2024 7:33 PM RADIATION DOSE METRICS: Total DLP (mGy-cm): 815.34 FINDINGS: Trachea: Saber sheath morphology of the trachea. Lungs: Similar moderate centrilobular and paraseptal emphysematous changes. Scattered mild subpleural reticular opacities slightly more pronounced in the lung bases, compatible with early/mild fibrosis. Previously seen cavitary lesion in the right lower lobe has resolved in the interval. No focal consolidation. Pleural spaces: Unremarkable. No pneumothorax. No pleural effusion. Heart: Stable cardiomegaly. Trace pericardial fluid is similar to prior. Coronary arteries: No significant coronary artery calcifications. Lymph nodes: Unremarkable. No enlarged lymph nodes. Vasculature: Unremarkable. No aortic aneurysm. Liver: Subcentimeter hepatic hypodensities are too small to characterize but likely represent cysts. Stomach: The stomach is moderately distended with retained debris, likely postprandial. Bones/joints: Mild degenerative changes of the visualized spine. Multiple old healed/healing right rib fractures. Fixation plates again seen along the left 3rd through 5th ribs. Soft tissues: Unremarkable. CT/CT chest wo con [id number] IMPRESSION: 1. Interval resolution of the previously seen cavitary lesion in the right lower lobe. 2. Similar moderate emphysema. 3. Saber sheath morphology of the trachea is compatible with chronic obstructive lung disease. 4. Old healed bilateral rib fractures and healing right posterior rib fractures. COMMENTS: The presence of pulmonary emphysema on CT is an independent risk factor for lung cancer. In the absence of a history or active diagnosis of lung cancer, it is recommended that this patient with emphysema be evaluated for enrollment in a low dose CT lung cancer screening program.
== END 2025-02-21 10:08 | disposition home or self-care (01) ==
PROVIDERS: PCP Family Medicine; Visit Provider Family Medicine
DX: J44.9 Chronic obstructive pulmonary disease, unspecified (principal); J43.9 Emphysema, unspecified
CPT/HCPCS: 71250

== ENCOUNTER 2025-02-24 18:42 | Emergency (ER) | payer OTHER, MEDICAID, SELFPAY ==
[2025-02-24] VITALS (7 sets, daily range): BP systolic 124–160; BP diastolic 84–98; PULSE 101–124; RESP 16–24; TEMP 36.8; O2SAT 91–94; BMI 30.1
--- NOTE | 2025-02-24 18:55 | XRR_ITS ---
PROCEDURE INFORMATION: Exam: XR Chest Exam date and time: 02/24/2025 7:26 PM Age: 64 years old Clinical indication: Shortness of breath; Additional info: SOB TECHNIQUE: Imaging protocol: Radiologic exam of the chest. Views: 1 view. COMPARISON: CT chest con [id number] 02/21/2025 10:36 AM FINDINGS: Lungs: Bibasilar atelectasis.. No consolidation. Pleural spaces: Unremarkable. No pleural effusion. No pneumothorax. Heart/Mediastinum: Cardiomegaly. Bones/joints: Postsurgical changes of the left upper ribs. XR/XR chest 1V portable [id number] IMPRESSION: As above.
--- NOTE | 2025-02-24 18:57 | ECG_ITS ---
[employer] Test Date: 2025-02-24 Pat Name: Gareth Pickering Department: Room: Gender: Male Wellness Guide: : 1960 Requested By: Helder French Order Number: [id number] Hoang MD: Mario Hanson M.D. Measurements Intervals Bulger Rate: 122 P: 0 CO: 0 QRS: 90 QRSD: 114 T: 47 QT: 293 QTc: 419 Interpretive Statements ATRIAL FIBRILLATION WITH RAPID VENTRICULAR RESPONSE INCOMPLETE RIGHT BUNDLE BRANCH BLOCK [90+ ms QRS DURATION, TERMINAL R IN V1/V2, 40+ ms S IN I/aVL/V4/V5/V6] Compared to ECG 10/16/2024 13:34:02 Incomplete right bundle-branch block now present Right bundle-branch block no longer present Left posterior fascicular block no longer present Myocardial infarct finding no longer present Electronically Signed On 02-26-2025 11:38:42 CDT by Mario Hanson M.D. [id number]
[2025-02-24 19:36] LABS: Basophils % 0.6 %; Eosinophils # 0.1 10^3/uL (0.0-0.8); Eosinophils % 1.8 %; Hematocrit 44.3 % (37-53); Lymphocytes # 1.8 10^3/uL (0.8-4.8); Mean Corpuscular HGB Conc 31.2 g/dL (30-55); Mean Corpuscular Hemoglobin 28.2 pg (27-33); Mean Corpuscular Volume 90.4 fl (82-101); Monocytes # 0.7 10^3/uL (0.2-0.9); Monocytes % 9.6 %; Neutrophils # 4.43 10^3/uL (1.8-7.7); Neutrophils % 62.7 %; Nucleated Red Blood Cells % 0 %; Platelet Count 285 10^3/cmm (157-399); Red Cell Distribution Width 15.6 % (12.1-15.1); White Blood Count 7.07 10^3/uL (3.29-11.43)
[2025-02-24 19:39] LABS: Bilirubin Urine Negative (Negative); Blood Urine Negative (Negative); Glucose Urine UA Negative (Normal); Ketones Urine Negative (Negative); Leukocyte Esterase Urine Negative (Negative); Nitrate Urine Negative (Negative); Protein Urine 3+ (Negative); Specific Gravity, Urine 1.024 (1.005-1.030); Urine Appearance Clear (CLEAR); Urine Color Yellow (Yellow)
[2025-02-24 19:46] LABS: Add Urine Microscopic? YES; Amphetamines Screen Urine Positive (Negative); Barbiturates Screen Urine Negative (Negative); Benzodiazepines Screen Urine Negative (Negative); Cocaine Screen Urine Negative (Negative); Hyaline Casts Urine 4.95 /lpf; Opiate Screen Urine Negative (Negative); PCP Screen Urine Negative (Negative); RBC Urine 0-4 /hpf (0-2); Squamous Epithelial Cell Urine 0-4 /hpf (0-5); THC Screen Urine Negative (Negative); WBC Urine 0-4 /hpf (0-5)
[2025-02-24 20:00] LABS: Anion Gap 14.5 (5-19); Blood Urea Nitrogen 26 mg/dL (8-23); Calcium 9.4 mg/dL (8.5-10.5); Carbon Dioxide 28 mmol/L (22-29); Chloride 102 mmol/L (98-107); Creatinine Clr Calc Pharmacy 76.5242; Glucose 93 mg/dL (65-115); NT Pro B Type Natriuretic Pept 2310 pg/mL (0-125); Osmolality Calculated 294 mOsm/kg (285-295); Potassium 4.5 mmol/L (3.5-5.1); Sodium 140 mmol/L (136-145)
[2025-02-24] MEDS: acetaminophen 500 mg Tablet 1000 MG PO (20:08)
[2025-02-24] MEDS: ipratropium-albuterol 3 mL Neb INHALATION (20:09)
[2025-02-24] MEDS: FUROsemide 10 mg/mL SDV 10mL 80 MG IVP (20:53)
--- NOTE | 2025-02-24 21:59 | ED_ITS ---
HPI - SOB/Dyspnea 2 General: Chief Complaint: Shortness of Breath/Dyspnea Stated Complaint: SOB Time Seen by Provider: 02/24/25 18:50 History of Present Illness: HPI Narrative: This patient is a 64-year-old white male brought in by police. Patient was pulled over by police and patient was noted to be transporting methamphetamine. He was placed under arrest. Patient then complained of shortness of breath and stated he wanted to come to the emergency department. Related Data Home Medications ?Medication ?Instructions ?Recorded ?Confirmed albuterol sulfate 90 mcg/actuation 2 puff inhalation Q 6H PRN 06/04/24 12/20/24 aerosol inhaler Shortness Of Breath bupropion HCl 150 mg 24 hr tablet, 150 mg PO QAM 06/0412/20/24 extended release Previous Rx's ?Medication ?Instructions ?Recorded home fill oxygen concentrator #1 ea 04/19/23 motorized electric scooter #1 ea 04/26/23 pulse oxymeter #1 ea 04/26/23 Electric wheelchair #1 ea 05/04/23 albuterol sulfate 2.5 mg/3 mL 2.5 mg (3 mL) inhalation Q6H PRN 04/27/24 (0.083 %) solution for nebulization shortness of breat h or wheezing #180 mL ondansetron 4 mg disintegrating 4 mg PO Q8H PRN nausea and 04/27/24 tablet vomiting #60 tabs potassium chloride 10 mEq 20 meq (2 x 10 mEq) PO DAILY #180 04/27/24 tablet,extended release tabs acetaminophen 325 mg tablet 650 mg (2 x 325 mg) PO Q6H #30 tabs 09/14/24 lidocaine 5 % topical patch 1 patch topical [id number] #30 ea 09/14/24 sennosides 8.6 mg tablet (senna) 17.2 mg (2 x 8.6 mg) PO BEDTIME 09/14/24 #30 tabs amiodarone 200 mg tablet (Pacerone) 200 mg PO DAILY #9 0 tabs 11/06/24 apixaban 5 mg tablet (Eliquis) 5 mg PO BID #180 tabs 0 11/06/24 bumetanide 1 mg tablet 1 mg PO BID #180 tabs diltiazem HCl 180 mg 180 mg PO DAILY #90 caps 08/20 capsule,extended release 24 hr (Cardizem CD) ipratropium 0.5 mg-albuterol 3 mg 3 ml inhalation Q8H 30 days #180 mL 11/06/24 (2.5 mg base)/3 mL nebulization soln loperamide 2 mg capsule 2 mg PO Q6H PRN loose stool #90 11/06/24 caps mirabegron 25 mg tablet,extended 25 mg PO DAILY #90 ta bs 11/06/24 release 24 hr (Myrbetriq) tamsulosin 0.4 mg capsule 0.4 mg PO DAILY #90 caps 08/20 guaifenesin 1,200 mg tablet, 1,200 mg PO BID #20 tabs 12/20/24 extended release 12 hr (Mucinex) levofloxacin 750 mg tablet 750 mg PO DAILY #7 tabs mometasone-formoterol HFA 100 2 puff inhalation BID #1 3 grams 12/20/24 mcg-5 mcg/actuation aerosol inhaler (Dulera) prednisone 20 mg tablet 40 mg (2 x 20 mg) PO DAILY 5 days 12/20/24 #10 tabs Allergies Allergy/AdvReac Type Severity Reaction Status Date / Time No Known Allergies Allergy Verified 12/20/24 11:26 Review of Systems 2 General: Reports: 10 or more systems reviewed and unremarkable except in HPI and below Card: Reports: edema Resp: Reports: dyspnea PFS ED 2 PFSH: Medical History (Updated 02/24/25 @ 20:52 by Helder French MD) 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) Non-compliance Acute and chronic respiratory failure with hypoxia Staphylococcus epidermidis bacteremia Respiratory acidosis Tobacco abuse counseling Chronic neck pain Congestion of throat Diarrhea Open wound of scrotum Sepsis Coag negative Staphylococcus bacteremia Acute on chronic respiratory failure with hypoxia and hypercapnia Abrasion, right lower leg, initial encounter Penile rash Rash of groin Exertional chest pain Congestive heart failure Moderate tricuspid regurgitation Mitral valve prolapse Hyperkalemia Acute hyperkalemia Oxygen dependent Substance abuse Moderate tobacco use disorder Bladder incontinence Lower extremity edema Smoker Tobacco use disorder Right heart failure with reduced right ventricular function Rib deformity Atrial fibrillation with RVR Acute exacerbation of chronic obstructive airways disease Hyperlipidemia Atrial fibrillation COPD (chronic obstructive pulmonary disease) Surgical History History of colon surgery Family History Other CAD (coronary artery disease) Hypertension Lung disease Denies family history of Diabetes Clotting disorder Dementia Hyperlipidemia Psychiatric illness Chronic kidney disease (CKD) Anesthesia complication Bleeding disorder Cancer Stroke Social History Smoking and tobacco/nicotine status: current every day tobacco/nicotine user cigarettes Packs smoked per day: 0.5 Alcohol intake: former Substance/Drug Use: never Lives independently: Yes Current occupational status: disabled Current gender identity: Male Special jeri needs: No Agree to transfusion: Yes Physical Exam 2 Const: COMMON NORMALS: no acute distress, patient oriented x3 and no limitations GENERAL APPEARANCE: cooperative and comfortable HENMT: COMMON NORMALS: normocephalic, atraumatic, Normal nasal mucous membranes and turbinates present, moist oral mucous membranes and oropharynx normal HEAD & SCALP: normal to inspection, normocephalic and atraumatic F SHAUNA & SINUS: normal facial exam NOSE: Normal nasal mucous membranes and turbinates present Eye: COMMON NORMALS: Equal, round and reactive pupils present, EOMs intact bilaterally and conjunctivae normal GENERAL EYE: appearance normal, both eyes and all related structures CONJUNCTIVA: Yes conjunctivae normal PUPIL: Yes Equal, round and reactive pupils present Neck/C-Spine: COMMON NORMALS: supple and no JVD Chest: COMMONS NORMALS: normal inspection of the chest Resp: COMMON NORMALS: normal respiratory effort and clear to auscultation bilaterally AUSCULTATION: clear to auscultation bilaterally Cardio: COMMON NORMALS: no JVD, regular rate, regular rhythm, No gallops present (Cardio), No murmurs present (Cardio) and No rub (Cardio) RATE: r egular rate RHYTHM: regular rhythm GI: COMMON NORMALS: Normal to inspection, nondistended, normoactive bowel sounds present, Soft to palpation and non-tender AUSCULTATION: Yes normoactive bowel sounds PALPATION: Yes Soft to palpation : COMMON NORMALS: Yes no CVA tenderness BLADDER/KIDNEY EXAM: Yes no CVA tenderness Back/Pelvis: COMMON NORMALS: no CVA tenderness and thoracic and lumbar spine normal to inspection Extremity: COMMON NORMALS: normal to inspection Neuro: COMMON NORMALS: patient oriented x3 and CN's II-XII intact bilaterally Psych: COMMON NORMALS: mental status grossly normal, Normal thought process present and cooperative THOUGHT PROCESS: Normal thought process present Skin: COMMON NORMALS: no rashes or lesions noted, turgor normal and no jaundice GENERAL SKIN EXAM: no rashes or lesions noted and turgor normal Course 2 Vital Signs: Vital signs: Vital Signs Temperature 98.2 F 02/24/25 18:43 Pulse Rate 101 H 02/24/25 20:57 Respiratory Rate 16 02/24/25 20:57 Blood Pressure 160/98 02/24/25 20:57 Pulse Oximetry 93 02/24/25 20:57 Oxygen Delivery Me thod Room Air 02/24/25 20:10 MDM - SOB/Dyspnea Medical Decision Making EKG revealed atrial fibrillation with a ventricular rate of 122. Patient does have a history of A-fib. Chest x-ray reveals cardiomegaly but no pleural effusions. CBC and BMP were normal. Urine analysis normal. Urine drug screen was positive for amphetamines. BNP was 2310. Patient does have a history of congestive heart failure. Patient has been noncompliant with his medications. He has been using illicit drugs including methamphetamine. I had a lengthy discussion with the patient concerning his illicit drug use and his medical problems. It is highly contraindicated that he use methamphetamine considering the medical problems that he has. He has also been noncompliant with his medications. Also I believe the patient is just here tonight because he wants to avoid going to senior living. He was given 80 of Lasix IV. He was released to the custody of the police in stable condition. Lab Data 02/24/25 19:31 02/24/25 19:31 Labs/Radiology: Radiology Impressions Chest X-Ray 02/24/25 18:55 IMPRESSION: As above. Laboratory Results WBC 7.07 10^3/uL (3.29-11.43) 02/24/25 19:31 RBC 4.90 10^6/uL (3.85-5.65) 02/24/25 19:31 Hgb 13.80 g/dL (11.27-16.99) 02/24/25 19:31 Hct 44.3 % (37-53) 02/24/25 19:31 MCV 90.4 fl (82-101) 02/24/25 19:31 MCH 28.2 pg (27-33) 02/24/25 19: MCHC 31.2 g/dL (30-55) 02/24/25 19: RDW 15.6 % (12.1-15.1) H 02/24/25 19: Plt Count 285 10^3/cmm (157-399) 02/24/25 19: MPV 9.0 fL (7.4-10.4) 02/24/25 19: Neut % (Auto) 62.7 % 02/24/25 19: Lymph % (Auto) 25.0 % 02/24/25: [place] % (Auto) 9.6 % 02/24/25: Eos % (Auto) 1.8 % 02/24/25: Baso % (Auto) 0.6 % 02/24/25: Neut # (Auto) 4.43 10^3/uL (1.8-7.7) 02/24/25: Lymph # (Auto) 1.8 10^3/uL (0.8-4.8) 02/24/25: [place] # (Auto) 0.7 10^3/uL (0.2-0.9) 02/24/25: Eos # (Auto) 0.1 10^3/uL (0.0-0.8) 02/24/25: Baso # (Auto) 0.0 10^3/uL (0.0-0.1) 02/24/25: Nucleated RBC % (auto) 0 % 02/24/25: Nucleated RBCs # 0.0 /100WBC 02/24/25: Sodium 140 mmol/L (136-145) 02/24/25 19: Potassium 4.5 mmol/L (3.5-5.1) 02/24/25: Chloride 102 mmol/L (98-107) 02/24/25 19: Carbon Dioxide 28 mmol/L (22-29) 02/24/25: Anion Gap 14.5 (5-19) 02/24/25: BUN 26 mg/dL (8-23) H 02/24/25:31 Creatinine 1.1 mg/dL (0.7-1.2) 02/24/25: GFR Calculation 67.0 mL/min (90-130) L 02/24/25: Glucose 93 mg/dL (65-115) 02/24/25: Calculated Osmolality 294 mOsm/kg (285-295) 02/24/25: Calcium 9.4 mg/dL (8.5-10.5) 02/24/25: NT-Pro-B Natriuret Pep 2310 pg/mL (0-125) H 02/24/25 19:31 Urine Color Yellow (Yellow) 02/24/25 19: Urine Appearance Clear (CLEAR) 02/24/25 19: Urine pH 6.0 (5-7) 02/24/25 19: Ur Specific [place] 1.024 (1.005-1.030) 02/24/25 19:02 Urine Protein 3+ (Negative) A 02/24/25 19: Urine Glucose (UA) Negative (Normal) 02/24/25 19:02 Urine Ketones Negative (Negative) 02/24/25 19:02 Urine Blood Negative (Negative) 02/24/25 19:02 Urine Nitrate Negative (Negative) 02/24/25 19: Urine Bilirubin Negative (Negative) 02/24/25 19: Urine Urobilinogen 1.0 mg/dL (Negative) 02/24/25 19:02 Ur Leukocyte Esterase Negative (Negative) 02/24/25 19:02 Urine RBC 0-4 /hpf (0-2) H 02/24/25 19:02 Urine WBC 0-4 /hpf (0-5) H 02/24/25 19:02 Ur Squamous Epith Cells 0-4 /hpf (0-5) H 02/24/25 19:02 Amorphous Sediment Not Reportable 02/24/25 19:02 Urine Bacteria None /hpf (NONE) 02/24/25 19:02 Hyaline Casts 4.95 /lpf 02/24/25 19:02 Urine Opiates Screen Negative ng/mL (Negative) 02/24/25 19:02 Ur Barbiturates Screen Negative ng/mL (Negative) 02/24/25 19:02 Ur Phencyclidine Scrn Negative ng/mL (Negative) 02/24/25 19:02 Ur Amphetamines Screen Positive ng/mL (Negative) H 02/24/25 19:02 U Benzodiazepines Scrn Negative ng/mL (Negative) 02/24/25 19:02 Urine Cocaine Screen Negative ng/mL (Negative) 02/24/25 19:02 U Marijuana (THC) Screen Negative ng/mL (Negative) 02/24/25 19:02 All radiology interpretation(s) finalized by discharge Discharge Plan Discharge Patient Disposition: Home Clinical Impression: Drug abuse Congestive heart failure Qualifiers: Heart failure type: unspecified Heart failure chronicity: acute on chronic Q ualified Code(s): I50.9 - Heart failure, unspecified Condition: Stable Prescriptions: No Action (DME) motorized electric scooter See Rx Instructions .Route .MEDSUPPLY Qty: 1 0RF Rx Instructions: As directed (DME) pulse oxymeter See Rx Instructions .Route .MEDSUPPLY Qty: 1 0RF Rx Instructions: As directed amiodarone [Pacerone] 200 mg tablet 200 mg PO DAILY Qty: 90 1RF Eliquis 5 mg tablet 5 mg PO BID Qty: 180 1RF bumetanide 1 mg tablet 1 mg PO BID Qty: 180 1RF diltiazem HCl [Cardizem CD] 180 mg capsule,extended release 24hr 180 mg PO DAILY Qty: 90 1RF ipratropium-albuterol 0.5 mg-3 mg(2.5 mg base)/3 mL solution for nebulization 3 ml inhalation Q8H 30 Days Qty: 180 2RF loperamide 2 mg capsule 2 mg PO Q6H PRN (Reason: loose stool) Qty: 90 3RF tamsulosin 0.4 mg capsule 0.4 mg PO DAILY Qty: 90 1RF mirabegron [Myrbetriq] 25 mg tablet extended release 24 hr 25 mg PO DAILY Qty: 90 1RF potassium chloride 10 mEq tablet extended release 20 meq PO DAILY Qty: 180 1RF albuterol sulfate 2.5 mg /3 mL (0.083 %) solution for nebulization 2.5 mg inhalation Q6H PRN (Reason: shortness of breath or wheezing) Qty: 180 5RF Rx Instructions: to use while DuoNeb is unavailable ondansetron 4 mg tablet,disintegrating 4 mg PO Q8H PRN (Reason: nausea and vomiting) Qty: 60 1RF prednisone 20 mg tablet 40 mg PO DAILY 5 Days Qty: 10 0RF levofloxacin 750 mg tablet 750 mg PO DAILY Qty: 7 0RF guaifenesin [Mucinex] 1,200 mg tablet extended release 12hr 1,200 mg PO BID Qty: 20 0RF Dulera 100-5 mcg/actuation HFA aerosol inhaler 2 puff inhalation BID Qty: 13 3RF (DME) home fill oxygen concentrator See Rx Instructions .Route .MEDSUPPLY Qty: 1 0RF Rx Instructions: As directed, 6L NC (DME) Electric wheelchair See Rx Instructions .Route .MEDSUPPLY Qty: 1 0RF Rx Instructions: As directed sennosides [senna] 8.6 mg Tablet 17.2 mg PO BEDTIME Qty: 30 3RF lidocaine 5 % Adhesive Patch,Medicated 1 patch topical [id number] Qty: 30 0RF acetaminophen 325 mg Tablet 650 mg PO Q6H Qty: 30 3RF albuterol sulfate 90 mcg/actuation HFA aerosol inhaler 2 puff INHALATION Q6H PRN (Reason: Shortness Of Breath) bupropion HCl 150 mg tablet extended release 24 hr 150 mg PO QAM Discharge Orders: Discharge ED (Routine); Ordered 02/24/25 Ordered By: Helder French Referrals: Sloan Arias MD [Primary Care Provider, Family Practice] Patient Instructions: Heart Failure (DC), Methamphetamine Use Disorder (ED) Print Language: [place] Coding Level of Care Code ED Breaker Table Worker for Emily Talbot
== END 2025-02-24 21:06 | disposition home or self-care (01) ==
PROVIDERS: Emergency Provider Emergency Medicine; PCP Family Medicine
DX: F19.10 Other psychoactive substance abuse, uncomplicated (principal); I50.20 Unspecified systolic (congestive) heart failure; J44.9 Chronic obstructive pulmonary disease, unspecified; F17.210 Nicotine dependence, cigarettes, uncomplicated
CPT/HCPCS: 36415; 71045; 80048; 80306; 81001; 83880; 85025; 93005; 94640; 96374; 99285; J1938; J9999

== ENCOUNTER → 2025-06-10 14:35 | Outpatient (BNVA) | payer OTHER, MEDICAID, SELFPAY | PROVIDERS: PCP Family Medicine; Visit Provider Internal Medicine | DX: J44.9 Chronic obstructive pulmonary disease, unspecified (principal); Z99.81 Dependence on supplemental oxygen; Z91.199 Patient's noncompliance with other medical treatment and regimen due to unspecified reason; F17.210 Nicotine dependence, cigarettes, uncomplicated; F15.90 Other stimulant use, unspecified, uncomplicated | CPT/HCPCS: 99214 ==